=== PATIENT | male | born 1965 | race African-American/Black ===

== ENCOUNTER → 2016-10-03 | Outpatient (CLI) | payer MEDICARE ==
[~2016-10-03] MED LIST: ALLO300T2 PO; AMLO10TA4 PO; COLC0.6C3 PO; CYCL10TA9 PO; FAMO-119 PO; LISI10TA2 PC; NAPR500T PO; OMEP20CA12 PO; OMEP40CA36 PO; PANT40TA2 PO; PANT40TA3 PO; POTA10TA6 PO; PRAV10TA PO; SUCR1TAB36 PO; TRAM50TA2 PO
--- NOTE | 2016-10-03 18:17 | Diagnostic Imaging Report ---
INDICATION: Neck pain, no known injury. AP, odontoid, and lateral views of the cervical spine are obtained. C7 and T1 are not visualized on the lateral view. Odontoid appears intact. The cervical vertebrae from C1 through C6 appear in good alignment and show no fracture or subluxation. There is no significant disc space narrowing. IMPRESSION: Negative cervical spine series at the above-mentioned levels. C7 and T1 are not fully visualized on the lateral view. Dictated by: Dictated on workstation # [id number]
== END ==
LOC: RAD 16:59
PROVIDERS: ATTEND Chiropractor
DX: M79.1 Myalgia (principal); M54.13 Radiculopathy, cervicothoracic region; R29.3 Abnormal posture
CPT/HCPCS: 72040

== ENCOUNTER 2017-01-19 09:24 | Observation (INO) | payer MEDICARE ==
[~2017-01-19] VITALS: Ht 172.7 cm; Wt 134.9 kg
[~2017-01-19 09:24] MED LIST changes: -LISI10TA2 PC; +LISI10TA2 PO
--- NOTE | 2017-01-19 09:39 | ED Psychosocial ---
General Stated Complaint: PSYCH EVAL Source: patient Exam Limitations: no limitations History of Present Illness Time seen by provider: 09:36 Initial Comments Patient reports ER by private conveyance after he spoke with his doctor at [facility] and was told to come to the ER for psych evaluation. He says that for the past 23 days he has been coming more and more depressed and has had voices in his head telling him to kill himself is going to and go to hell. He has never had a suicidal attempt before he has however had suicidal ideation the past. He' s never had inpatient psych stay. He does not have much of a plan to kill himself other than he says he does have guns in the home he could use. He has a history of gout and high blood pressure for which she takes his medicines regularly. He does not have a history of schizophrenia and his voices did not start till about August 2016. He has been followed by his primary care physician but has not started on any antipsychotics. Allergies and Home Medications Allergies Coded Allergies: Penicillins (Verified Allergy, Unknown, 01/31/16) Home Medications Febuxostat 80 Mg Tablet, 80 MG PO, (Reported) Lisinopril 10 Mg Tablet, 1 TAB PC DAILY, #30 (Reported) Pantoprazole Sodium 40 Mg Tablet.dr, 40 MG PO BID, #60 Prescribed by: BRANDEN ESPANA on 02/06/16 1331 Potassium Chloride 10 Meq Tablet.er, 10 MEQ PO DAILY, (Reported) Pravastatin Sodium 10 Mg Tablet, 1 TAB PO DAILY, #30 (Reported) Sucralfate 1 Gm Tablet, 1 GM PO QID, #120 Prescribed by: BRANDEN ESPANA on 02/06/16 1331 Constitutional: No chills, No diaphoresis, No fever EENTM: No ear pain, No eye pain Respiratory: No cough, No short of breath Cardiovascular: No chest pain, No Hx of Intervention, No palpitations Gastrointestinal: No abdominal pain, No constipation, No diarrhea, No nausea Genitourinary: No discharge, No dysuria Musculoskeletal: No back pain, No joint pain (history of gout) Skin: No pruritus, No rash Psychiatric/Neurological: Depressed, Emotional Problems (suicidal ideation), Denies Headache, Denies Numbness, Denies Paresthesia Past Bfbrvno-Tyjqbx-Pxamhq Hx Patient Social History Alcohol Use: Denies Use Recreational Drug Use: No Smoking Status: Former Smoker Type Used: Cigarettes, Smokeless Tobacco (quit 10 years ago) Former Smoker/When Quit: Jan 12, 1986 Recent Foreign Travel: No Contact w/Someone Who Travel: No Immunizations Up To Date Date of Pneumonia Vaccine: Aug 08, 2013 Seasonal Allergies Seasonal Allergies: No Surgeries HX Surgeries: Yes Surgeries: Gallbladder, Tonsillectomy Respiratory Hx Respiratory Disorders: Yes (SLEEP APNEA) Respiratory Disorders: Sleep Apnea Cardiovascular Hx Cardiac Disorders: No Cardiac Disorders: High Cholesterol, Hypertension Neurological Hx Neurological Disorders: No Reproductive System Hx Reproductive Disorders: No Genitourinary Hx Genitourinary Disorders: Yes (RENAL DISEASE) Gastrointestinal Hx Gastrointestinal Disorders: No Gastrointestinal Disorders: Gastroesophageal Reflux Musculoskeletal Hx Musculoskeletal Disorders: No Musculoskeletal Disorders: Arthritis, Rheumatoid Arthritis, Gout Endocrine Hx Endocrine Disorders: Yes Endocrine Disorders: Lupus HEENT HX ENT Disorders: No Cancer Hx Cancer: No Psychosocial Hx Psychiatric Problems: Yes Behavioral Health Disorders: Depression Integumentary HX Skin/Integumentary Disorder: No Blood Transfusions Hx Blood Disorders: No Family Medical History Significant Family History: No Pertinent Family Hx Physical Exam Vital Signs Vital Sign - Last 12Hours 01/19/17 09:36 Temp 98.0 Pulse 90 Resp 16 B/P (MAP) 144/91 Pulse Ox 96 Capillary Refill : General Appearance: WD/WN, mild distress, obese HEENT: PERRL/EOMI, pharynx normal Neck: non-tender, normal inspection Respiratory: lungs clear, normal breath sounds Cardiovascular: normal peripheral pulses, regular rate, rhythm Peripheral Pulses: 4+ Radial Pulses (R), 4+ Radial Pulses (L) Gastrointestinal: normal bowel sounds, non tender, soft Extremities: normal inspection, normal capillary refill Neurologic/Psychiatric: no motor/sensory deficits, alert, oriented x 3, depressed affect (tearful with suicidal ideation without plan. Denies current audiovisual/tactile hallucination and does not endorse lesions) Appearance/Memory: appropriate appearance, appropriate insight, no memory impairment Behavior/Eye Contact: cooperative, normal speech, avoids eye contact Thoughts/Hallucinations: no apparent hallucination, No auditory hallucinations , No delusions, No flight of ideas Skin: normal color, warm/dry Lymphatic: no adenopathy Progress/Results/Core Measures Results/Orders Lab Results Laboratory Tests Test 01/19/17 09:38 01/19/17 10:11 Range/Units White Blood Count 10.5 4.3-11.0 10^3/uL Red Blood Count 5.83 4.35-5.85 10^6/uL Hemoglobin 14.4 13.3-17.7 G/DL Hematocrit 44 40-54 % Mean Corpuscular Volume 76 L 80-99 FL Mean Corpuscular Hemoglobin 25 25-34 PG Mean Corpuscular Hemoglobin Concent 33 32-36 G/DL Red Cell Distribution Width 14.6 H 10.0-14.5 % Platelet Count 360 130-400 10^3/uL Mean Platelet Volume 9.2 7.4-10.4 FL Neutrophils (%) (Auto) 65 42-75 % Lymphocytes (%) (Auto) 28 12-44 % Monocytes (%) (Auto) 6 0-12 % Eosinophils (%) (Auto) 1 0-10 % Basophils (%) (Auto) 0 0-10 % Neutrophils # (Auto) 6.8 1.8-7.8 X 10^3 Lymphocytes # (Auto) 3.0 1.0-4.0 X 10^3 Monocytes # (Auto) 0.7 0.0-1.0 X 10^3 Eosinophils # (Auto) 0.1 0.0-0.3 10^3/uL Basophils # (Auto) 0.0 0.0-0.1 10^3/uL Sodium Level 141 135-145 MMOL/L Potassium Level 3.1 L 3.6-5.0 MMOL/L Chloride Level 101 98-107 MMOL/L Carbon Dioxide Level 27 21-32 MMOL/L Anion Gap 13 5-14 MMOL/L Blood Urea Nitrogen 14 7-18 MG/DL Creatinine 1.48 H 0.60-1.30 MG/DL Estimat Glomerular Filtration Rate > 60 BUN/Creatinine Ratio 9 Glucose Level 114 H 70-105 MG/DL Calcium Level 10.0 8.5-10.1 MG/DL Total Bilirubin 1.4 H 0.1-1.0 MG/DL Aspartate Amino Transf (AST/SGOT) 17 5-34 U/L Alanine Aminotransferase (ALT/SGPT) 28 0-55 U/L Alkaline Phosphatase 90 40-136 U/L Total Protein 7.9 6.4-8.2 GM/DL Albumin 4.4 3.2-4.5 GM/DL Acetaminophen Level < 10 L 10-30 UG/ML Serum Alcohol < 10 <10 MG/DL Urine Color YELLOW Urine Clarity CLEAR Urine pH 6 5-9 Urine Specific [place] 1.015 L 1.016-1.022 Urine Protein 2+ H NEGATIVE Urine Glucose (UA) NEGATIVE NEGATIVE Urine Ketones NEGATIVE NEGATIVE Urine Nitrite NEGATIVE NEGATIVE Urine Bilirubin NEGATIVE NEGATIVE Urine Urobilinogen NORMAL NORMAL MG/DL Urine Leukocyte Esterase NEGATIVE NEGATIVE Urine RBC (Auto) NEGATIVE NEGATIVE Urine RBC NONE /HPF Urine WBC NONE /HPF Urine Squamous Epithelial Cells RARE /HPF Urine Crystals NONE /LPF Urine Bacteria NEGATIVE /HPF Urine Casts NONE /LPF Urine Mucus NEGATIVE /LPF Urine Culture Indicated NO Urine Opiates Screen NEGATIVE NEGATIVE Urine Oxycodone Screen NEGATIVE NEGATIVE Urine Methadone Screen NEGATIVE NEGATIVE Urine Propoxyphene Screen NEGATIVE NEGATIVE Urine Barbiturates Screen NEGATIVE NEGATIVE Ur Tricyclic Antidepressants Screen NEGATIVE NEGATIVE Urine Phencyclidine Screen NEGATIVE NEGATIVE Urine Amphetamines Screen NEGATIVE NEGATIVE Urine Methamphetamines Screen NEGATIVE NEGATIVE Urine Benzodiazepines Screen NEGATIVE NEGATIVE Urine Cocaine Screen NEGATIVE NEGATIVE Urine Cannabinoids Screen NEGATIVE NEGATIVE My Orders Orders - [facility] Acetaminophen (01/19/17 09:39) Alcohol (01/19/17 09:39) Cbc With Automated Diff (01/19/17 09:39) Comprehensive Metabolic Panel (01/19/17 09:39) Drug Screen Stat (Urine) (01/19/17 09:39) Ua Culture If Indicated (01/19/17 09:39) Ekg Tracing (01/19/17 09:54) General/Regular (01/19/17 Breakfast) Potassium Chloride (Tablet) (K Dur Table (01/19/17 10:15) Medications Given in ED Current Medications Medications Dose Ordered Sig/Rosa M Route Start Time Stop Time Status Last Admin Dose Admin Potassium Chloride 20 meq ONCE ONCE PO 01/19/17 10:15 01/19/17 10:17 DC 01/19/17 10:45 20 MEQ Vital Signs/I&O Vital Sign - Last 12Hours 01/19/17 09:36 Temp 98.0 Pulse 90 Resp 16 B/P (MAP) 144/91 Pulse Ox 96 Progress Note #1: Time: 09:44 Progress Note Patient is actively suicidal without much of a plan. He will need inpatient stay with psychiatry. We have contacted [facility] and they have to discharge today one of which is scheduled at 1999 they will call us back as soon as they have discharged one of them. [facility] has no inpatient psych beds available at this time. [facility] is at capacity. [facility] was called and they will have someone from their assessment center call us back. Progress Note #2: Time: 10:16 Progress Note Patient's potassium is mildly low so we will replace it by mouth. He has a history of chronic hypokalemia and is on a potassium supplement at home. He is also eating breakfast. He has a baseline of 1-1.5 creatinine chronic kidney disease based on labs in the past 2 years. His bilirubin has been high in the past. 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 Patient has a and general child home with his does not drive and so we will be in position and friends to come pick him up after his inpatient states that he has requested not to go to [facility] or [facility]. He would prefer to be somewhere much closer such as [place] or [place]. ECG Initial ECG Impression Date: Jan 19, 2017 Initial ECG Impression Time: 09:50 Initial ECG Rate: 78 Initial ECG Rhythm: Normal Sinus Initial ECG Intervals: Normal Initial ECG Impression: Normal, Nonspecific Changes Initial ECG Comparisson: No Previous ECG Available Comment No ST wave elevation or depression Departure Communication Time/Spoke to Admitting Phy: 11:[address] Frazier; discussed the patient's case and his audio hallucinations as well as suicidal ideation. He has not required any antipsychotics at this time. Discussed at [facility] said that they would have to discharge today and the first on the notable be at 8:00 the second one is unknown time. The plan from [facility] inpatient psych was to call us as soon as they had space available. He said if it is okay with this and also provides her and they have staff that he would be okay with bring the patient on observation so that they can hold onto him until they get him discharged hopefully tonight. Impression Impression: Primary Impression: Hallucinations Additional Impression: Suicidal ideation Disposition: ADMITTED INPATIENT (obs) Condition: Stable Decision to Admit Reason: Admit from ER (General) Decision to Admit/Date: Jan 19, 2017 Time/Decision to Admit Time: 11:11 Departure-Patient Inst. Referrals: EDGARDO BATES MD (PCP/Family) Primary Care Physician Copy Copies To 1: SYD MARTIN TITUS J Jan 19, 2017 09:39
[2017-01-19] MEDS ORDERED: FEBU80TA PO (09:47)
[2017-01-19 09:51] LABS: BASOPHILS % (AUTO) 0 % (0-10); EOSINOPHILS # (AUTO) 0.1 10^3/uL (0.0-0.3); EOSINOPHILS % (AUTO) 1 % (0-10); LYMPHOCYTES % (AUTO) 28 % (12-44); MEAN CORPUSCULAR HEMOGLOBIN 25 PG (25-34); MEAN CORPUSCULAR HGB CONC 33 G/DL (32-36); MEAN CORPUSCULAR VOLUME 76 FL (80-99); MEAN PLATELET VOLUME 9.2 FL (7.4-10.4); MONOCYTES # (AUTO) 0.7 X 10^3 (0.0-1.0); MONOCYTES % (AUTO) 6 % (0-12); NEUTROPHILS # (AUTO) 6.8 X 10^3 (1.8-7.8); NEUTROPHILS % (AUTO) 65 % (42-75); PLATELET COUNT 360 10^3/uL (130-400); RED BLOOD COUNT 5.83 10^6/uL (4.35-5.85); RED CELL DISTRIBUTION WIDTH 14.6 % (10.0-14.5); WHITE BLOOD COUNT 10.5 10^3/uL (4.3-11.0)
[2017-01-19 10:06] LABS: ALANINE AMINOTRANSFERASE 28 U/L (0-55); ALBUMIN 4.4 GM/DL (3.2-4.5); ALCOHOL < 10 MG/DL (<10); ANION GAP 13 MMOL/L (5-14); ASPARTATE AMINO TRANSFERASE 17 U/L (5-34); BILIRUBIN,TOTAL 1.4 MG/DL (0.1-1.0); BLOOD UREA NITROGEN 14 MG/DL (7-18); BUN/CREATININE RATIO 9; CARBON DIOXIDE 27 MMOL/L (21-32); CHLORIDE 101 MMOL/L (98-107); CREATININE SERUM 1.48 MG/DL (0.60-1.30); GFR ESTIMATED > 60; GLUCOSE 114 MG/DL (70-105); POTASSIUM 3.1 MMOL/L (3.6-5.0); SODIUM 141 MMOL/L (135-145); TOTAL PROTEIN 7.9 GM/DL (6.4-8.2)
[2017-01-19 10:11] LABS: ACETAMINOPHEN < 10 UG/ML (10-30)
[2017-01-19] MEDS ORDERED: KCL 20 MEQ TAB (K-DUR) PO ONE (10:15)
[2017-01-19 10:40] LABS: BILIRUBIN,URINE NEGATIVE (NEGATIVE); KETONES,URINE NEGATIVE (NEGATIVE); LEUKOCYTE ESTERASE ,URINE NEGATIVE (NEGATIVE); NITRITE,URINE NEGATIVE (NEGATIVE); PH,URINE 6 (5-9); PROTEIN,URINE 2+ (NEGATIVE); UROBILINOGEN,URINE NORMAL (NORMAL)
[2017-01-19 10:41] LABS: SQUAMOUS EPITHELIAL CELL,UR RARE /HPF
[2017-01-19 12:59] VITALS: BP 119/75
[2017-01-19] MEDS ORDERED: ACETAMINOPHEN 500 MG TAB (TYLENOL) PO PRN (14:00)
[2017-01-19] MEDS ORDERED: ONDANSETRON 4 MG/2 ML (SDV) Z0FRAN IV PRN (14:00)
[2017-01-19 16:00] VITALS: BP 121/77
--- NOTE | 2017-01-19 16:33 | History & Physicial (CHS) ---
HPI History of Present Illness: 51-year-old male presents to [facility] emergency department after apparently being informed to come to the emergency department for evaluation. He apparently was hearing voices and these voices were telling him to go ahead and kill himself. Patient has no previous suicide attempts although he admitted to emergency room physician he had suicidal ideation in the past. Patient does not have an active plan for harming himself. He has not taken any antipsychotic medications in the past and his only other medications have been for gout as well as hypertension. Patient does see Dr. Pearson at [facility]. Source: patient Exam Limitations: clinical condition Date seen by provider: Jan 19, 2017 Time Seen by Provider: 16:45 Attending Physician Rodri Dave MD PCP Ryley Jones MD Consult Date of Admission Jan 19, 2017 at 11:29 Home Medications Home Medications Reviewed patient Home Medication Reconciliation Form Allergies Coded Allergies: Penicillins (Verified Allergy, Unknown, 01/31/16) DYK-Xwspsy-Momjav Hx Patient Social History Marrital Status: Alcohol Use: Denies Use Recreational Drug Use: No Smoking Status: Former Smoker Former smoker/When Quit: Jan 12, 1986 Type Used: Cigarettes, Smokeless Tobacco (quit 10 years ago) Recent Foreign Travel: No Contact w/other who traveled: No Recent Hopitalizations: No Recent Infectious Disease Expo: No Physical Abuse Screen: No Sexual Abuse: No Immunizations Up To Date Date of Pneumonia Vaccine: Aug 08, 2013 Family Medical History Significant Family History: No Pertinent Family Hx Family History: Diabetes mellitus 19 MOTHER PATERNAL GRANDFATHER Neoplasm 19 FATHER (THROAT CANCER-SMOKER) Review of Systems ([facility]) Constitutional: see HPI Reviewed Test Results Reviewed Test Results Lab Laboratory Tests Test 01/19/17 09:38 01/19/17 10:11 Range/Units White Blood Count 10.5 4.3-11.0 10^3/uL Red Blood Count 5.83 4.35-5.85 10^6/uL Hemoglobin 14.4 13.3-17.7 G/DL Hematocrit 44 40-54 % Mean Corpuscular Volume 76 L 80-99 FL Mean Corpuscular Hemoglobin 25 25-34 PG Mean Corpuscular Hemoglobin Concent 33 32-36 G/DL Red Cell Distribution Width 14.6 H 10.0-14.5 % Platelet Count 360 130-400 10^3/uL Mean Platelet Volume 9.2 7.4-10.4 FL Neutrophils (%) (Auto) 65 42-75 % Lymphocytes (%) (Auto) 28 12-44 % Monocytes (%) (Auto) 6 0-12 % Eosinophils (%) (Auto) 1 0-10 % Basophils (%) (Auto) 0 0-10 % Neutrophils # (Auto) 6.8 1.8-7.8 X 10^3 Lymphocytes # (Auto) 3.0 1.0-4.0 X 10^3 Monocytes # (Auto) 0.7 0.0-1.0 X 10^3 Eosinophils # (Auto) 0.1 0.0-0.3 10^3/uL Basophils # (Auto) 0.0 0.0-0.1 10^3/uL Sodium Level 141 135-145 MMOL/L Potassium Level 3.1 L 3.6-5.0 MMOL/L Chloride Level 101 98-107 MMOL/L Carbon Dioxide Level 27 21-32 MMOL/L Anion Gap 13 5-14 MMOL/L Blood Urea Nitrogen 14 7-18 MG/DL Creatinine 1.48 H 0.60-1.30 MG/DL Estimat Glomerular Filtration Rate > 60 BUN/Creatinine Ratio 9 Glucose Level 114 H 70-105 MG/DL Calcium Level 10.0 8.5-10.1 MG/DL Total Bilirubin 1.4 H 0.1-1.0 MG/DL Aspartate Amino Transf (AST/SGOT) 17 5-34 U/L Alanine Aminotransferase (ALT/SGPT) 28 0-55 U/L Alkaline Phosphatase 90 40-136 U/L Total Protein 7.9 6.4-8.2 GM/DL Albumin 4.4 3.2-4.5 GM/DL Acetaminophen Level < 10 L 10-30 UG/ML Serum Alcohol < 10 <10 MG/DL Urine Color YELLOW Urine Clarity CLEAR Urine pH 6 5-9 Urine Specific [place] 1.015 L 1.016-1.022 Urine Protein 2+ H NEGATIVE Urine Glucose (UA) NEGATIVE NEGATIVE Urine Ketones NEGATIVE NEGATIVE Urine Nitrite NEGATIVE NEGATIVE Urine Bilirubin NEGATIVE NEGATIVE Urine Urobilinogen NORMAL NORMAL MG/DL Urine Leukocyte Esterase NEGATIVE NEGATIVE Urine RBC (Auto) NEGATIVE NEGATIVE Urine RBC NONE /HPF Urine WBC NONE /HPF Urine Squamous Epithelial Cells RARE /HPF Urine Crystals NONE /LPF Urine Bacteria NEGATIVE /HPF Urine Casts NONE /LPF Urine Mucus NEGATIVE /LPF Urine Culture Indicated NO Urine Opiates Screen NEGATIVE NEGATIVE Urine Oxycodone Screen NEGATIVE NEGATIVE Urine Methadone Screen NEGATIVE NEGATIVE Urine Propoxyphene Screen NEGATIVE NEGATIVE Urine Barbiturates Screen NEGATIVE NEGATIVE Ur Tricyclic Antidepressants Screen NEGATIVE NEGATIVE Urine Phencyclidine Screen NEGATIVE NEGATIVE Urine Amphetamines Screen NEGATIVE NEGATIVE Urine Methamphetamines Screen NEGATIVE NEGATIVE Urine Benzodiazepines Screen NEGATIVE NEGATIVE Urine Cocaine Screen NEGATIVE NEGATIVE Urine Cannabinoids Screen NEGATIVE NEGATIVE Physical Exam-([facility]) Physical Exam Vital Signs VS - Last 72 Hours, by Label 01/19/17 01/19/17 01/19/17 01/19/17 09:36 11:45 12:00 12:59 Temp 98.0 96.9 Pulse 90 78 80 Resp 16 18 18 B/P (MAP) 144/91 119/75 Pulse Ox 96 98 98 98 O2 Delivery Room Air Room Air 01/19/17 01/19/17 01/19/17 01/20/17 16:00 20:17 23:50 03:55 Temp 97.7 99.2 97.9 98.3 Pulse 75 75 83 82 Resp 20 18 20 18 B/P (MAP) 121/77 117/71 119/83 122/72 Pulse Ox 98 94 97 97 O2 Delivery Room Air Room Air Room Air Room Air Capillary Refill : Less Than 3 Seconds General Appearance: no apparent distress Eyes: Bilateral Eye Normal Inspection Neck: non-tender Respiratory: lungs clear Cardiovascular: regular rate, rhythm Gastrointestinal: soft Rectal: deferred Back: normal inspection Extremities: no pedal edema Neurologic/Psychiatric: oriented x 3, depressed affect Skin: normal color Assessment/Plan Assessment/Plan Admission Dx 1. Suicidal ideation 2. Hallucinations 3. History of hypertension 4. History of gout Plan 1. Suicidal ideation -Emergency room physician has made multiple phone calls in arrangement for inpatient care. -At this time patient is on hold at [facility] until room available at [facility] psychiatric. 2. Hallucinations -I suspect that patient will be placed on medication after their evaluation. -Medication to be held for now here at [facility]. 3. History of hypertension -He will be restarted on his medications as deemed appropriate. 4. History of gout Diagnosis/Problems: Clinical Quality Measures DVT/VTE Risk/Contraindication: Risk Factor Score Per Nursin RFS Level Per Nursing on Admit: 2=Moderate RODRI DAVE MD Jan 19, 2017 16:32
[2017-01-19 20:17] VITALS: BP 117/71
[2017-01-19 23:50] VITALS: BP 119/83
[2017-01-20 03:55] VITALS: BP 122/72
[2017-01-20 08:00] VITALS: BP 147/92
[2017-01-20] MEDS ORDERED: PANT40TA3 PO (09:48)
[2017-01-20] MEDS ORDERED: SUCR1TAB PO (09:48)
[2017-01-20] MEDS ORDERED: ASCO-262 PO (09:48)
[2017-01-20] MEDS ORDERED: MAG30ORA2 PO (09:48)
[2017-01-20] MEDS ORDERED: MULT1TAB69 PO (09:48)
[2017-01-20] MEDS ORDERED: POTA10TA10 PO (09:48)
[2017-01-20] MEDS ORDERED: VITA1TAB17 PO (09:48)
[2017-01-20 12:01] VITALS: BP 136/89
--- NOTE | 2017-01-20 14:16 | Progress Note (SOAP) ---
Subjective Subjective/Events-last exam Afebrile, no acute events. He states he is feeling the same as when he came in. He states he had depression many years ago and took medicine which made it worse. In the last several months to a year he has had increasing worry about physical problems- any time he notes any symptom, his states he focuses on it to the point of near panic and having to go to the ER or doctor. In the last month, it has become nearly continuous to the point where he may only be "normal " for about 2 hours at a time. In the last few days he has had onset of voices in his head telling him he is going to . He denies fever, illness, headache. He does admit some neck pain and nausea. Review of Systems Date Seen by Provider: Jan 20, 2017 Time Seen by Provider: 09:45 Objective Exam Last Set of Vital Signs Vital Signs Date Time Temp Pulse Resp B/P (MAP) Pulse Ox O2 Delivery O2 Flow Rate FiO2 01/20/17 12:01 98.5 91 24 136/89 97 Room Air Capillary Refill : Less Than 3 Seconds I&O Bad tableGeneral: Alert, No Acute Distress Lungs: Clear to Auscultation, Normal Air Movement Heart: Regular Rate, No Murmurs Abdomen: Normal Bowel Sounds, Soft Neuro: Normal Speech Psych/Mental Status: Other (flat affect) Results/Procedures Lab Laboratory Tests Test 01/19/17 09:38 01/19/17 10:11 Range/Units White Blood Count 10.5 4.3-11.0 10^3/uL Red Blood Count 5.83 4.35-5.85 10^6/uL Hemoglobin 14.4 13.3-17.7 G/DL Hematocrit 44 40-54 % Mean Corpuscular Volume 76 L 80-99 FL Mean Corpuscular Hemoglobin 25 25-34 PG Mean Corpuscular Hemoglobin Concent 33 32-36 G/DL Red Cell Distribution Width 14.6 H 10.0-14.5 % Platelet Count 360 130-400 10^3/uL Mean Platelet Volume 9.2 7.4-10.4 FL Neutrophils (%) (Auto) 65 42-75 % Lymphocytes (%) (Auto) 28 12-44 % Monocytes (%) (Auto) 6 0-12 % Eosinophils (%) (Auto) 1 0-10 % Basophils (%) (Auto) 0 0-10 % Neutrophils # (Auto) 6.8 1.8-7.8 X 10^3 Lymphocytes # (Auto) 3.0 1.0-4.0 X 10^3 Monocytes # (Auto) 0.7 0.0-1.0 X 10^3 Eosinophils # (Auto) 0.1 0.0-0.3 10^3/uL Basophils # (Auto) 0.0 0.0-0.1 10^3/uL Sodium Level 141 135-145 MMOL/L Potassium Level 3.1 L 3.6-5.0 MMOL/L Chloride Level 101 98-107 MMOL/L Carbon Dioxide Level 27 21-32 MMOL/L Anion Gap 13 5-14 MMOL/L Blood Urea Nitrogen 14 7-18 MG/DL Creatinine 1.48 H 0.60-1.30 MG/DL Estimat Glomerular Filtration Rate > 60 BUN/Creatinine Ratio 9 Glucose Level 114 H 70-105 MG/DL Calcium Level 10.0 8.5-10.1 MG/DL Total Bilirubin 1.4 H 0.1-1.0 MG/DL Aspartate Amino Transf (AST/SGOT) 17 5-34 U/L Alanine Aminotransferase (ALT/SGPT) 28 0-55 U/L Alkaline Phosphatase 90 40-136 U/L Total Protein 7.9 6.4-8.2 GM/DL Albumin 4.4 3.2-4.5 GM/DL Acetaminophen Level < 10 L 10-30 UG/ML Serum Alcohol < 10 <10 MG/DL Urine Color YELLOW Urine Clarity CLEAR Urine pH 6 5-9 Urine Specific [place] 1.015 L 1.016-1.022 Urine Protein 2+ H NEGATIVE Urine Glucose (UA) NEGATIVE NEGATIVE Urine Ketones NEGATIVE NEGATIVE Urine Nitrite NEGATIVE NEGATIVE Urine Bilirubin NEGATIVE NEGATIVE Urine Urobilinogen NORMAL NORMAL MG/DL Urine Leukocyte Esterase NEGATIVE NEGATIVE Urine RBC (Auto) NEGATIVE NEGATIVE Urine RBC NONE /HPF Urine WBC NONE /HPF Urine Squamous Epithelial Cells RARE /HPF Urine Crystals NONE /LPF Urine Bacteria NEGATIVE /HPF Urine Casts NONE /LPF Urine Mucus NEGATIVE /LPF Urine Culture Indicated NO Urine Opiates Screen NEGATIVE NEGATIVE Urine Oxycodone Screen NEGATIVE NEGATIVE Urine Methadone Screen NEGATIVE NEGATIVE Urine Propoxyphene Screen NEGATIVE NEGATIVE Urine Barbiturates Screen NEGATIVE NEGATIVE Ur Tricyclic Antidepressants Screen NEGATIVE NEGATIVE Urine Phencyclidine Screen NEGATIVE NEGATIVE Urine Amphetamines Screen NEGATIVE NEGATIVE Urine Methamphetamines Screen NEGATIVE NEGATIVE Urine Benzodiazepines Screen NEGATIVE NEGATIVE Urine Cocaine Screen NEGATIVE NEGATIVE Urine Cannabinoids Screen NEGATIVE NEGATIVE Assessment/Plan Assessment/Plan Admission Dx 1. Suicidal ideation 2. Hallucinations 3. History of hypertension 4. GERD 5. HLD Plan 1. Suicidal ideation -Emergency room physician has made multiple phone calls in arrangement for inpatient care. -At this time patient is on hold at [facility] until room available at inpatient psychiatric. 2. Hallucinations -If unable to be transferred to inpatient Psych, will consider starting medication, appears he may have depression with psychotic features as well as anxiety/panic disorder 3. History of hypertension- resume home lisinopril 4. GERD- resume home pantoprazole 5. HLD- resume home statin DVT ppx- SCDs Diagnosis/Problems: Clinical Quality Measures DVT/VTE Risk/Contraindication: Risk Factor Score Per Nursin RFS Level Per Nursing on Admit: 2=Moderate EDE OGDEN MD Jan 20, 2017 2:16 pm
[2017-01-20] MEDS ORDERED: CATHETER FLUSH 10 ML SYR IV PRN (14:30)
[2017-01-20 15:25] LABS: ALANINE AMINOTRANSFERASE 27 U/L (0-55); ALBUMIN 3.9 GM/DL (3.2-4.5); ANION GAP 13 MMOL/L (5-14); ASPARTATE AMINO TRANSFERASE 17 U/L (5-34); BILIRUBIN,TOTAL 0.9 MG/DL (0.1-1.0); BLOOD UREA NITROGEN 14 MG/DL (7-18); BUN/CREATININE RATIO 10; CALCIUM 9.7 MG/DL (8.5-10.1); CARBON DIOXIDE 25 MMOL/L (21-32); CHLORIDE 102 MMOL/L (98-107); GFR ESTIMATED > 60; GLUCOSE 126 MG/DL (70-105); SODIUM 140 MMOL/L (135-145); TOTAL PROTEIN 7.2 GM/DL (6.4-8.2)
[2017-01-20 15:31] VITALS: BP 126/82
[2017-01-20] MEDS ORDERED: KCL 20 MEQ TAB (K-DUR) PO NR (16:00)
--- NOTE | 2017-01-20 16:06 | Discharge Summary ---
Diagnosis/Chief Complaint Date of Admission Jan 19, 2017 at 12:00 Date of Discharge Jan 20, 2017 Admission Diagnosis Admission Diagnosis 1. Suicidal ideation 2. Hallucinations 3. History of hypertension 4. GERD 5. HLD Discharge Diagnosis 1. Suicidal ideation -Transferred to [facility] 2. Hallucinations -If unable to be transferred to inpatient Psych, will consider starting medication, appears he may have depression with psychotic features as well as anxiety/panic disorder -Transferred to [facility] 3. History of hypertension- resume home lisinopril 4. GERD- resume home pantoprazole 5. HLD- resume home statin 6. CKD- creatinine 1.4, appears to be baseline, but he did not report history of CKD, likely needs further work-up outpatient Chief Complaint/HPI Chief Complaint/HPI 51-year-old male presents to [facility] emergency department after apparently being informed to come to the emergency department for evaluation. He apparently was hearing voices and these voices were telling him to go ahead and kill himself. Patient has no previous suicide attempts although he admitted to emergency room physician he had suicidal ideation in the past. Patient does not have an active plan for harming himself. He has not taken any antipsychotic medications in the past and his only other medications have been for gout as well as hypertension. Patient does see Dr. Pearson at [facility]. Discharge Summary-Simple/Stand Consultations Discharge Physical Examination Allergies: Coded Allergies: Penicillins (Verified Allergy, Unknown, 01/31/16) Vitals & I&Os Vital Sign - Last 12Hours Date Time Temp Pulse Resp B/P (MAP) Pulse Ox O2 Delivery O2 Flow Rate FiO2 01/20/17 15:31 98.7 93 24 126/82 95 Room Air Intake and Output 01/20/17 00:00 Intake Total 620 ml Output Total 525 ml Balance 95 ml Hospital Course See final discharge diagnosis. Discharge Instructions to patient/family Please see electonic discharge instructions given to patient. Discharge Medications Reviewed and agree with Discharge Medication list on patient's Discharge Instruction sheet Clinical Quality Measures DVT/VTE Risk/Contraindication: Risk Factor Score Per Nursin RFS Level Per Nursing on Admit: 2=Moderate EDE OGDEN MD Jan 20, 2017 16:06
[2017-01-20 16:59] VITALS: BP 126/82
[2017-01-20] MEDS ORDERED: CATHETER FLUSH 10 ML SYR IV SCH (22:00)
[2017-01-21] MEDS ORDERED: PANTOPRAZOLE 40 MG (PROTONIX) TAB PO SCH (07:00)
[2017-01-21] MEDS ORDERED: NON-FORMULARY MEDICATION 1 EA EA (Pravastatin Sodium 10 MG) PO SCH (09:00)
[2017-01-21] MEDS ORDERED: lisINopril 10 MG (PRINIVIL) TAB PO SCH (09:00)
[2017-01-21] MEDS ORDERED: SIMvastatin 10 MG (ZOCOR) TAB PO SCH (21:00)
== END 2017-01-20 16:05 ==
LOC: EDUNIT# 09:24 → ER 09:25 → 4TH 11:29 → UNDOADMOB 11:29 → 4TH 12:00
PROVIDERS: ADMIT Family Medicine; ATTEND Family Medicine
DX: R45.851 Suicidal ideations (principal); R44.0 Auditory hallucinations; I12.9 Hypertensive chronic kidney disease with stage 1 through stage 4 chronic kidney disease, or unspecified chronic kidney disease; N18.9 Chronic kidney disease, unspecified; K21.9 Gastro-esophageal reflux disease without esophagitis; M10.00 Idiopathic gout, unspecified site; G47.30 Sleep apnea, unspecified; Z79.899 Other long term (current) drug therapy; Z87.891 Personal history of nicotine dependence
CPT/HCPCS: 36415; 80053; 80306; 80320; 80329; 81000; 85025; 93005; G0378

== ENCOUNTER 2017-11-21 17:31 | Emergency (ER) | payer MEDICARE ==
[~2017-11-21] VITALS: Ht 177.8 cm; Wt 145.1 kg
[~2017-11-21 17:31] MED LIST changes: +ASCO-262 PO; +FEBU80TA PO; +MAG30ORA2 PO; +MULT1TAB69 PO; +NAPR-1071 PO; -NAPR500T PO; +POTA10TA10 PO; +SUCR1TAB PO; +VITA1TAB17 PO
--- OUTSIDE RECORDS SUMMARY | 2017-11-21 17:37 | XMS REPORT ---
Author Author ADINA ZAMBRANO Organization [facility] Address [address] [place] [address] Phone Unavailable Care Team Providers Care Sinter Feeder Name Role Phone ADINA ZAMBRANO Unavailable Unavailable PROBLEMS Type Condition ICD9-CM Code [id number] Code Onset Dates Condition Status SNOMED Code Problem Essential hypertension I10 Active 65579852 Problem Dysthymic disorder F34.1 Active 60802130 Problem Mixed hyperlipidemia E78.2 Active 027978808 Problem Gastroesophageal reflux disease without esophagitis K21.9 Active 320339661 Problem Acute gout of right ankle, 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 Active 046932553 Problem Acute left-sided low back pain with left-sided sciatica M54.42 Active 790550135 Problem Arthritis M19.90 Active 6655015 Problem Generalized anxiety disorder F41.1 Active 79650127 Problem Chronic kidney disease, unspecified stage N18.9 Active 332524269 Problem Gingivitis K05.10 Active 02916972 ALLERGIES Unknown Allergies SOCIAL HISTORY No smoking Hx information available PLAN OF CARE VITAL SIGNS MEDICATIONS Unknown Medications RESULTS No Results PROCEDURES No Known procedures IMMUNIZATIONS No Known Immunizations
--- OUTSIDE RECORDS SUMMARY | 2017-11-21 17:38 | XMS REPORT ---
Author Author ADINA ZAMBRANO Organization [employer] Address Unknown Phone Unavailable Care Team Providers Care Management Expert Name Role Phone ADINA ZAMBRANO CP Unavailable Allergies, Adverse Reactions, Alerts Substance Reaction Event Type Penicillin V Potassium Info Not Available Drug Allergy Problems Problem Type Condition Code Onset Dates Condition Status Assessment Dental examination Z01.20 Active Problem Arthritis M19.90 Active Problem Generalized anxiety disorder F41.1 Active Problem Gingivitis K05.10 Active Problem Essential hypertension I10 Active Problem Gastroesophageal reflux disease without esophagitis K21.9 Active Problem Dysthymic disorder F34.1 Active Problem Mixed hyperlipidemia E78.2 Active Medications No Known Medications Procedures Procedure Coding System Code Date INTRAORL-PERIAPICAL 1 FILM 19978 CPT-4 D0220 Apr 04, 2016 INTRAORL-PERIAPICAL EA ADD FILM CPT-4 D0230 Apr 04, 2016 COMP ORAL EVALUATION - NEW/EST PT CPT-4 D0150 Apr 04, 2016 Billing Notes on claim CPT-4 EC109 Apr 04, 2016 BITEWINGS - TWO FILMS CPT-4 D0272 Apr 04, 2016 Results No Known Results Summary Purpose [employer] Submission
--- OUTSIDE RECORDS SUMMARY | 2017-11-21 17:38 | XMS REPORT ---
Author Author EDGARDO BATES [facility] Address [address] [place] [address] Care Team Providers Care District Attorney Name Role Phone EDGARDO BATES Unavailable PROBLEMS Type Condition ICD9-CM Code ING35-XH Code Onset Dates Condition Status SNOMED Code Problem Gastroesophageal reflux disease without esophagitis K21.9 Active 153717243 Problem Mixed hyperlipidemia E78.2 Active 987850849 Problem Essential hypertension I10 Active 54617690 Problem Acute left-sided low back pain with left-sided sciatica M54.42 Active 649552211 Problem Chronic kidney disease, unspecified stage N18.9 Active 985092288 Problem Generalized anxiety disorder F41.1 Active 61427885 Problem Dysthymic disorder F34.1 Active 83756039 Problem Gingivitis K05.10 Active 55550611 Problem Arthritis M19.90 Active 0800071 ALLERGIES Substance Reaction Event Type Date Status Penicillin V Potassium Unknown Drug Allergy May, Active SOCIAL HISTORY No smoking Hx information available PLAN OF CARE Activity Details Follow Up 2 Months Reason: VITAL SIGNS Height 70 in 2016-06-07 Weight 308 lbs 2016-06-07 Temperature 98.2 degrees Fahrenheit 2016-06-07 Heart Rate 96 bpm 2016-06-07 Respiratory Rate 22 2016-06-07 BMI 44.19 kg/m2 2016-06-07 Blood pressure systolic 112 mmHg 2016-06-07 Blood pressure diastolic 80 mmHg 2016-06-07 MEDICATIONS Medication Instructions Dosage Frequency Start Date End Date Duration Status Lisinopril 10 MG Orally Once a day 1 tablet 24h Active Magnesium 250 MG Orally Once a day 1 tablet with a meal 24h Active Colchicine 0.6 MG Orally Once a day 1 tablet 24h Active Mens Multi Vitamin & Mineral Active Nystatin 360932 UNIT/ML Mouth/Throat Four times a day 5 ml 6h May, Jun, 30 day(s) Active Vitamin C 500 MG Active Vitamin B-6 100 MG Orally Once a day 1 tablet 24h Active Vitamin D3 1000 UNIT Orally Once a day 1 capsule 24h Active Protonix 40 Orally Once a day 1 tablet 24h 30 Active Pravastatin Sodium 10 MG Orally Once a day 1 tablet 24h Active RESULTS Name Result Date Reference Range BMP 2016-06-07 Glucose, Serum 114 65-99 BUN 24 6-24 Creatinine, Serum 1.63 0.76-1.27 eGFR If NonAfricn Am 49 >59 eGFR If Africn Am 57 >59 BUN/Creatinine Ratio 15 9-20 Sodium, Serum 140 134-144 Potassium, Serum 3.4 3.5-5.2 Chloride, Serum 96 96-106 Carbon Dioxide, Total 25 18-29 Calcium, Serum 10.0 8.7-10.2 PROCEDURES Procedure Date Ordered Related Diagnosis Body [facility] Jun 07, 2016 VENIPUNCT, ROUTINE* Jun 07, 2016 Office Visit, Est Pt., Level 4 Jun 07, 2016 [facility] VISIT ESTABLISHED PATIENT Jun 07, 2016 IMMUNIZATIONS No Known Immunizations
--- OUTSIDE RECORDS SUMMARY | 2017-11-21 17:38 | XMS REPORT ---
Author Author EDGARDO BATES [facility] Address [address] [place] [address] Care Team Providers Care Manager Brand Name Role Phone EDGARDO BATES Unavailable PROBLEMS Type Condition ICD9-CM Code TFO05-LZ Code Onset Dates Condition Status SNOMED Code Problem Dysthymic disorder F34.1 Active 42108233 Problem Arthritis M19.90 Active 4931802 Problem Generalized anxiety disorder F41.1 Active 73885256 Problem Gastroesophageal reflux disease without esophagitis K21.9 Active 862139199 Problem Essential hypertension I10 Active 50148748 Problem Mixed hyperlipidemia E78.2 Active 436501011 Problem Vertigo R42 Active 164539985 Problem Type 2 diabetes mellitus without complication, without long-term current use of insulin E11.9 Active 217321406 Problem Acute left-sided low back pain with left-sided sciatica M54.42 Active 271066129 Problem Gingivitis K05.10 Active 72599778 Problem Exophthalmia H05.20 Active 82592395 Problem Acute gout of right ankle, 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 Active 883825351 ALLERGIES No Information ENCOUNTERS Encounter Location Date Diagnosis [facility] [address], [place] [address] Dec, [facility] [id number] [place] [phone] Sep, Dental examination Z01.20 [facility] [address], [place] [address] Sep, [facility] [id number] [place] [address] Aug, Dental examination Z01.20 [facility] [id number] [place] [address] Aug, [facility] [id number] [place] [address] Aug, [facility] [address] [address] 14 Aug, 2017 Aphthous stomatitis K12.0 and BMI 45.0-49.9, adult Z68.42 [place] [address] [address] 05 Aug, 2017 [place] [address] [address] 05 Aug, 2017 Vertigo R42 ; Impacted cerumen of both ears H61.23 ; Abnormal RBC indices R71.8 ; Exophthalmia H05.20 ; Elevated glucose R73.09 ; Type 2 diabetes mellitus without complication, without long-term current use of insulin E11.9 and BMI 45.0-49.9, adult Z68.42 [place] [address] [address] 19 Jul, 2017 Dizziness R42 and BMI 45.0-49.9, adult Z68.42 [facility] [address] [address] Jun, Vertigo R42 and BMI 45.0-49.9, adult Z68.42 [facility] [address] [id number] May, Dental caries K02.9 [facility] [address] [id number] May, Encounter for dental exam and cleaning w/o abnormal findings Z01.20 [place] [address] [address] 07 Apr, 2017 Acute non-recurrent maxillary sinusitis J01.00 [place] [address] [address] 09 Mar, 2017 [place] [address] [address] Feb, Acute gout of right ankle, 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 [facility] [id number] [place] [address] Feb, [facility] [id number] [place] [id number] Jan, Dental examination Z01.20 [facility] [id number] [place] [phone] Jan, Encounter for dental examination and cleaning without abnormal findings Z01.20 [facility] [id number] [place] [id number] Jan, Dental examination Z01.20 [facility] [id number] [place] [address] Jan, Acute non-recurrent frontal sinusitis J01.10 ; Essential hypertension I10 ; Mixed hyperlipidemia E78.2 ; Sore throat J02.9 and Gastroesophageal reflux disease without esophagitis K21.9 [facility] [id number] [place] [id number] Dec, [facility] [id number] [place] [address] Dec, Other secondary acute gout of multiple sites M10.49 and Acute upper respiratory infection, unspecified J06.9 [facility] [id number] [place] [address] Nov, Sore throat J02.9 ; Acute nasopharyngitis (common cold) J00 and Acute left-sided low back pain with left-sided sciatica M54.42 [facility] [address] [place] [phone] October, Encounter for dental examination and cleaning without abnormal findings Z01.20 [facility] [address] [place] [address] October, Acute upper respiratory infection, unspecified J06.9 and Sore throat J02.9 [facility] [address] [phone] Sep, Encounter for dental examination and cleaning without abnormal findings Z01.20 [facility] [id number] [place] [address] 16[address] Sep, Gastroesophageal reflux disease without esophagitis K21.9 [facility] [id number] [place] [address] Aug, Sore throat J02.9 and Acute idiopathic gout of right wrist M10.031 [facility] [id number] [place] [id number] Jul, Encounter for dental examination and cleaning without abnormal findings Z01.20 [facility] [id number] [place] [address] [phone] Jun, [facility] [id number] [place] [address] Jun, Lower abdominal pain R10.30 [facility] [id number] [place] [phone] Jun, Encounter for dental examination and cleaning without abnormal findings Z01.20 [facility] [id number] [place] [address] May, Chronic kidney disease, unspecified stage N18.9 and Mouth ulcer K12.1 [facility] [id number] [place] [address] May, Chronic kidney disease, unspecified stage N18.9 [facility] [id number] [place] [address] May, Encounter for dental examination and cleaning without abnormal findings Z01.20 [facility] [id number] [place] [address] May, Encounter for dental examination and cleaning without abnormal findings Z01.20 [facility] [id number] [place] [address] May, Hypokalemia E87.6 ; Essential hypertension I10 ; Gastroesophageal reflux disease without esophagitis K21.9 and Right-sided thoracic back pain, unspecified chronicity M54.6 [facility] [place] [address] [address] May, Oral candidiasis B37.[address] [address] May, [place] [address] [address] May, Cracked tooth K03.81 and Retained dental root K08.[address] [address] May, Dental examination Z01.20 [facility] [address] [address] 28 Apr, 2016 Acute right flank pain R10.9 and Acute left lower quadrant pain R10.32 [place] [address] [address] 08 Apr, 2016 Bronchitis J40 [place] [address] [address] Mar, Dental examination Z01.[address] [address] Mar, Dysthymic disorder F34.1 [facility] [address] [address] 05 Mar, 2016 Gingivitis K05.10 and Torticollis M43.[address] [address] 08 Feb, 2016 Dysthymic disorder F34.1 [facility] [address] [address] 07 Feb, 2016 Lymph nodes enlarged R59.9 [facility] [place] [address] [place] [address] Jan, Left otitis media, unspecified chronicity, unspecified otitis media type H66.92 [place] [id number] [place] [address] 08 Jan, 2016 Dysthymic disorder F34.1 and Generalized anxiety disorder F41.1 [place] [address] [address] Dec, Dental examination Z01.20 [place] [id number] [place] [address] Dec, Dysthymic disorder F34.1 and Generalized anxiety disorder F41.1 [place] [id number] [place] [address] Dec, Gastroesophageal reflux disease without esophagitis K21.9 and Arthritis M19.90 [place] [address] [id number] [place] [address]- [address] Dec, Dysthymic disorder F34.1 and Generalized anxiety disorder F41.1 [facility] [address] [place] [address] [address] [id number] [place] [address] Dec, Gingivitis K05.10 [place] [address] [id number] [place] [address]- [address] Dec, Essential hypertension I10 ; Epigastric pain R10.13 ; Mixed hyperlipidemia E78.2 ; Proptosis H05.20 and Gastroesophageal reflux disease without esophagitis K21.9 [place] [address] [id number] [place] [address]- [address] Dec, [place] [address] [address] Nov, Dysthymic disorder F34.1 [facility] [id number] [place] [address] Nov, Epigastric pain R10.13 and Gastroesophageal reflux disease , esophagitis presence not specified K21.9 [facility] [address] [place] [address]43- [address] 24 Nov, 2015 Depression, unspecified depression type F32.9 [facility] [id number] [place] [address]- [address] 24 Nov, 2015 Essential hypertension I10 ; Mixed hyperlipidemia E78.2 ; Proptosis H05.20 ; Gastroesophageal reflux disease without esophagitis K21.9 and Depression, unspecified depression type F32.9 [facility] [id number] [place] [address] 22 Nov, 2015 [facility] [place] [address] [address] 21 Nov, 2015 Sore in mouth K13.79 [facility] [place] [address] [address] [id number] [place] [address] 14 Nov, 2015 Left-sided chest wall pain R07.89 and Pain of right calf M79.661 [place] [address] [place] [address] 06 Nov, 2015 Gastroesophageal reflux disease, esophagitis presence not specified K21.9 and Environmental allergies Z91.09 [facility] [address] [place] [phone] October, Dental examination Z01.20 IMMUNIZATIONS No Known Immunizations SOCIAL HISTORY Never Assessed REASON FOR VISIT Requests return call PLAN OF CARE VITAL SIGNS MEDICATIONS Unknown Medications RESULTS No Results PROCEDURES No Known procedures INSTRUCTIONS MEDICATIONS ADMINISTERED No Known Medications MEDICAL (GENERAL) HISTORY Type Description Date Medical History pneumonia Medical History High Blood pressure Medical History bronchitis Medical History kidney disease Medical History anemia Medical History arthritis Medical History Gout Medical History diabetic Surgical History Gallbladder Surgical History tonsillectomy Surgical History ENDO 02/2016 Hospitalization History chest pains 2013 Hospitalization History involuntary psych hold 01/20-01/24/17
--- OUTSIDE RECORDS SUMMARY | 2017-11-21 17:38 | XMS REPORT ---
Author Author GEORGES MOON Organization [facility] Address [address] [place] [address] Care Team Providers Care Preschool Program Director Name Role Phone GEORGES MOON Unavailable PROBLEMS Type Condition ICD9-CM Code [id number] Code Onset Dates Condition Status SNOMED Code Problem Dysthymic disorder F34.1 Active 18736029 Problem Arthritis M19.90 Active 1239785 Problem Generalized anxiety disorder F41.1 Active 34513832 Problem Gastroesophageal reflux disease without esophagitis K21.9 Active 029916984 Problem Essential hypertension I10 Active 75682510 Problem Mixed hyperlipidemia E78.2 Active 866463866 Problem Vertigo R42 Active 517739725 Problem Type 2 diabetes mellitus without complication, without long-term current use of insulin E11.9 Active 722571760 Problem Acute left-sided low back pain with left-sided sciatica M54.42 Active 250866646 Problem Gingivitis K05.10 Active 47487422 Problem Exophthalmia H05.20 Active 68444627 Problem Acute gout of right ankle, 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 Active 321588089 ALLERGIES No Information ENCOUNTERS Encounter Location Date Diagnosis [facility] [id number] [place] [address]1584- [address]783 Dec, [facility] [id number] [place] [address] [phone] Sep, Dental examination Z01.20 [facility] [id number] [place] [address] 71688- 2530 Sep, [facility] [id number] [place] [address] 86714- 2900 Aug, Dental examination Z01.20 [facility] [id number] [place] [address] 02140- 6626 Aug, [facility] [address] [place] [id number] [place] [address] 20159- 4663 19 Aug, 2017 [facility] [address] [address] 14 Aug, 2017 Aphthous stomatitis K12.0 and BMI 45.0-49.9, adult Z68.42 [place] [address] [address]- [address] 05 Aug, 2017 [place] [address] 46[address]- 9953 05 Aug, 2017 Vertigo R42 ; Impacted cerumen of both ears H61.23 ; Abnormal RBC indices R71.8 ; Exophthalmia H05.20 ; Elevated glucose R73.09 ; Type 2 diabetes mellitus without complication, without long-term current use of insulin E11.9 and BMI 45.0-49.9, adult Z68.42 [place] [address] 41488- 1863 19 Jul, 2017 Dizziness R42 and BMI 45.0-49.9, adult Z68.42 [facility] [address] [address] Jun, Vertigo R42 and BMI 45.0-49.9, adult Z68.42 [facility] [address] [id number] May, Dental caries K02.9 [facility] [address] [id number] [phone] May, 2017 Encounter for dental exam and cleaning w/o abnormal findings Z01.20 [place] [address] 74701- 3[address] 07 Apr, 2017 Acute non-recurrent maxillary sinusitis J01.00 [place] [address] [address]24- [address]01 09 Mar, 2017 [place] [address] [phone] 0296 Feb, Acute gout of right ankle, 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 [facility] [address] [place] [address] [phone]- 0802 11 Feb, 2017 [facility] [id number] [place] [address] [phone] Jan, Dental examination Z01.20 [facility] [id number] [place] [address] [phone] Jan, Encounter for dental examination and cleaning without abnormal findings Z01.20 [facility] [id number] [place] [address] [phone] Jan, Dental examination Z01.20 [facility] [id number] [place] [address] [phone]- 9886 Jan, Acute non-recurrent frontal sinusitis J01.10 ; Essential hypertension I10 ; Mixed hyperlipidemia E78.2 ; Sore throat J02.9 and Gastroesophageal reflux disease without esophagitis K21.9 [facility] [address] [place] [id number] [place] [address] [phone] Dec, [facility] [id number] [place] [address] 26168 -6868 Dec, Other secondary acute gout of multiple sites M10.49 and Acute upper respiratory infection, unspecified J06.9 [facility] [id number] [place] [address] 55157 -3705 Nov, Sore throat J02.9 ; Acute nasopharyngitis (common cold) J00 and Acute left-sided low back pain with left-sided sciatica M54.42 [facility] [id number] [place] [address] [phone] October, Encounter for dental examination and cleaning without abnormal findings Z01.20 [facility] [id number] [place] [address] 05432 -8626 October, Acute upper respiratory infection, unspecified J06.9 and Sore throat J02.9 [facility] [address] [place] [address] [phone] Sep, Encounter for dental examination and cleaning without abnormal findings Z01.20 [facility] [id number] [place] [address] 82723- 2653 Sep, Gastroesophageal reflux disease without esophagitis K21.9 [facility] [address] [address]10 [address] Aug, Sore throat J02.9 and Acute idiopathic gout of right wrist M10.031 [facility] [address] [id number] Jul, Encounter for dental examination and cleaning without abnormal findings Z01.20 [facility] [address] 71288- 1791 Jun, [facility] [address] [address]26- 1906 Jun, Lower abdominal pain R10.30 [facility] [address] [id number] Jun, Encounter for dental examination and cleaning without abnormal findings Z01.20 [facility] [address] 45999- 8757 May, Chronic kidney disease, unspecified stage N18.9 and Mouth ulcer K12.1 [facility] [address] 39047- 7115 May, Chronic kidney disease, unspecified stage N18.9 [facility] [address] 05229- 5315 May, Encounter for dental examination and cleaning without abnormal findings Z01.20 [facility] [address] 50130- 2735 May, Encounter for dental examination and cleaning without abnormal findings Z01.20 [facility] [address] 07096- 1013 May, Hypokalemia E87.6 ; Essential hypertension I10 ; Gastroesophageal reflux disease without esophagitis K21.9 and Right-sided thoracic back pain, unspecified chronicity M54.6 [facility] [place] [address] 35[address]9836 May, Oral candidiasis B37.0 [place] [address] 14748- 6869 May, [place] [address] 06297- 3343 May, Cracked tooth K03.81 and Retained dental root K08.3 [place] [address] 13774- 6561 May, Dental examination Z01.20 [facility] [place] [address] [address] Apr, Acute right flank pain R10.9 and Acute left lower quadrant pain R10.32 [place] [address] 68671- 9692 08 Apr, 2016 Bronchitis J40 [place] [address] 68865- 2686 Mar, Dental examination Z01.20 [place] [address] 58494- 3941 07 Mar, 2016 Dysthymic disorder F34.1 [facility] [place] [address] 9[address]8114 05 Mar, 2016 Gingivitis K05.10 and Torticollis M43.6 [place] [address] 88503- 8492 08 Feb, 2016 Dysthymic disorder F34.1 [facility] [place] [address] 61294 [address]6800 07 Feb, 2016 Lymph nodes enlarged R59.9 [facility] [place] [address] [place] [id number] [place] [address] 22078 -3235 Jan, Left otitis media, unspecified chronicity, unspecified otitis media type H66.92 [place] [address] [id number] [place] [address] 56963- 8668 08 Jan, 2016 Dysthymic disorder F34.1 and Generalized anxiety disorder F41.1 [place] [address] 43784- 0520 Dec, Dental examination Z01.20 [place] [address] 56054- 0118 Dec, Dysthymic disorder F34.1 and Generalized anxiety disorder F41.1 [place] [address] 10241- 5514 Dec, Gastroesophageal reflux disease without esophagitis K21.9 and Arthritis M19.90 [place] [address] 82243- 2428 Dec, Dysthymic disorder F34.1 and Generalized anxiety disorder F41.1 [place] [address] 14[address]236 Dec, Gingivitis K05.10 [place] [address] 87646- 0553 Dec, Essential hypertension I10 ; Epigastric pain R10.13 ; Mixed hyperlipidemia E78.2 ; Proptosis H05.20 and Gastroesophageal reflux disease without esophagitis K21.9 [place] [address] [id number] [place] [address] 24373- 8034 Dec, [place] [address] 75608- 9822 Nov, Dysthymic disorder F34.1 [facility] [place] [address] [address] [id number] [place] [address] 11186 -8254 Nov, Epigastric pain R10.13 and Gastroesophageal reflux disease , esophagitis presence not specified K21.9 [facility] [address] [place] [address] 57771- 7839 24 Nov, 2015 Depression, unspecified depression type F32.9 [place] [address] [id number] [place] [address] 65922- 9433 24 Nov, 2015 Essential hypertension I10 ; Mixed hyperlipidemia E78.2 ; Proptosis H05.20 ; Gastroesophageal reflux disease without esophagitis K21.9 and Depression, unspecified depression type F32.9 [place] [address] [id number] [place] [address] 118266- 5696 22 Nov, 2015 [facility] [address] [address] 21 Nov, 2015 Sore in mouth K13.79 [facility] [address] 47[address] -8322 14 Nov, 2015 Left-sided chest wall pain R07.89 and Pain of right calf M79.661 [place] [address] [place] [id number] [place] [address] 01594- 0722 06 Nov, 2015 Gastroesophageal reflux disease, esophagitis presence not specified K21.9 and Environmental allergies Z91.09 [facility] [address] [place] [address] [phone] October, Dental examination Z01.20 IMMUNIZATIONS No Known Immunizations SOCIAL HISTORY Never Assessed REASON FOR VISIT FILLING PLAN OF CARE Activity Details Follow Up Restorative Reason: VITAL SIGNS MEDICATIONS Unknown Medications RESULTS No Results PROCEDURES Procedure Date Ordered Result Body Site RESIN COMPOS - 1 SURFACE POSTERIOR Feb 20, 2017 RESIN COMPOS - 1 SURFACE POSTERIOR Feb 20, 2017 Billing Notes on claim Feb 20, 2017 INSTRUCTIONS MEDICATIONS ADMINISTERED No Known Medications MEDICAL [...]
--- OUTSIDE RECORDS SUMMARY | 2017-11-21 17:38 | XMS REPORT ---
Author JENNIFFER Brink [facility] [place] eClinical[employer] Address Unknown Phone Unavailable Care Team Providers Care Enterprise Business Architect Name Role Phone JENNIFFER NELSON CP Unavailable Allergies, Adverse Reactions, Alerts Substance Reaction Event Type Penicillin V Potassium Info Not Available Drug Allergy Problems Problem Type Condition Code Onset Dates Condition Status Problem Mixed hyperlipidemia E78.2 Active Problem Essential hypertension I10 Active Problem Dysthymic disorder F34.1 Active Problem Gastroesophageal reflux disease without esophagitis K21.9 Active Assessment Gingivitis K05.10 Active Medications Medication Code System Code Instructions Start Date End Date Status Dosage Acidophilus [facility] [address]48501 Orally not defined Aloe Vera Concentrate [facility] [address]-61580 25 MG Orally not defined Potassium Chloride Mee ER [facility] [address]-95 10 MEQ Orally Once a day 1 tablet with food Vitamin C [facility] [address]344-[address]29 500 MG Orally not defined Pravastatin Sodium [facility] [address]-40 10 MG Orally Once a day 1 tablet Magnesium [facility] [address]-24 250 MG Orally Once a day 1 tablet with a meal Colchicine [facility] [address]-60 0.6 MG Orally Once a day 1 tablet Naproxen [facility] [address]-84 500 MG Orally every 12 hrs 1 tablet as needed Lisinopril [facility] [address]-44 10 MG Orally Once a day 1 tablet Vitamin B-6 [facility] [address]-09 100 MG Orally Once a day 1 tablet Protonix [facility] 22988655906 40 Orally Once a day 1 tablet Protonix [facility] [address]-98 40 mg Orally Once a day November 27, 2015 1 tablet Mens Multi Vitamin & Mineral [facility] [address]04-21789 Orally not defined Allopurinol [facility] [address]-46 300 MG Orally Once a day 1.5 tablet Flonase [facility] [address]-04 50 MCG/ACT Nasally Once a day 1 spray in each nostril Vitamin D3 [facility] 65[address]-08341 1000 UNIT Orally Once a day 1 capsule Chlorhexidine Gluconate [facility] [address]-07 0.12 % Mouth/Throat 2 times a day December 28, 2015 January 07, 2016 15 ml swish for 30-60 seconds and spit Procedures Procedure Coding System Code Date Office Visit, Est Pt., Level 3 CPT-4 60728 December 28, 2015 [facility] ESTABLISHED PATIENT CPT-4 G0467 December 28, 2015 Vital Signs Date/Time: December 28, 2015 Cardiac Monitoring Heart Rate 84 bpm Weight 308.2 lbs Height 70 in Blood Pressure Diastolic 70 mmHg Blood Pressure Systolic 104 mmHg Results No Known Results Summary Purpose eClinicalWorks Submission
--- OUTSIDE RECORDS SUMMARY | 2017-11-21 17:38 | XMS REPORT ---
Author Author JOHN LORENZO [facility] IN [facility] Address [address] [place] [address] Care Team Providers Care Enrichment Director Name Role Phone LORENZOARMANDOJOHN Unavailable PROBLEMS Type Condition ICD9-CM Code [id number] Code Onset Dates Condition Status SNOMED Code Problem Dysthymic disorder F34.1 Active 64297889 Problem Arthritis M19.90 Active 0628151 Problem Generalized anxiety disorder F41.1 Active 17290180 Problem Gastroesophageal reflux disease without esophagitis K21.9 Active 504357206 Problem Essential hypertension I10 Active 88585765 Problem Mixed hyperlipidemia E78.2 Active 701216611 Problem Vertigo R42 Active 982403936 Problem Type 2 diabetes mellitus without complication, without long-term current use of insulin E11.9 Active 836197913 Problem Acute left-sided low back pain with left-sided sciatica M54.42 Active 418867876 Problem Gingivitis K05.10 Active 57856682 Problem Exophthalmia H05.20 Active 33129975 Problem Acute gout of right ankle, 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 Active 274216419 ALLERGIES Substance Reaction Event Type Date Status Penicillin V Potassium Unknown Drug Allergy Dec, Active ENCOUNTERS Encounter Location Date Diagnosis [facility] [address] [id number] [id number] Sep, [facility] [id number], [place] [address] Aug, Dental examination Z01.20 [facility] [id number] [place] [address] 28 Aug, 2017 [facility] [id number] [address] 19 Aug, 2017 [facility] [address], [place] [address] 14 Aug, 2017 Aphthous stomatitis K12.0 and BMI 45.0-49.9, adult Z68.42 [place] [address] [address] 05 Aug, 2017 [place] [address] [address] 05 Aug, 2017 Vertigo R42 ; Impacted cerumen of both ears H61.23 ; Abnormal RBC indices R71.8 ; Exophthalmia H05.20 ; Elevated glucose R73.09 ; Type 2 diabetes mellitus without complication, without long-term current use of insulin E11.9 and BMI 45.0-49.9, adult Z68.42 [place] [address] [address] 19 Jul, 2017 Dizziness R42 and BMI 45.0-49.9, adult Z68.42 [facility] [address] [address] Jun, Vertigo R42 and BMI 45.0-49.9, adult Z68.42 [facility] [address] [id number] May, Dental caries K02.9 [facility] [address] [id number] May, 2017 Encounter for dental exam and cleaning w/o abnormal findings Z01.20 [place] [address] [address] 07 Apr, 2017 Acute non-recurrent maxillary sinusitis J01.00 [place] [address] [address] 09 Mar, 2017 [place] [address] [address] 11 Feb, 2017 Acute gout of right ankle, 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 [place] [address] [address] Feb, [facility] [id number] [place] [id number] Jan, Dental examination Z01.20 [facility] [id number] [place] [id number] Jan, Encounter for dental examination and cleaning without abnormal findings Z01.20 [facility] [id number] [place] [id number] Jan, Dental examination Z01.20 [facility] [address] [address] Jan, Acute non-recurrent frontal sinusitis J01.10 ; Essential hypertension I10 ; Mixed hyperlipidemia E78.2 ; Sore throat J02.9 and Gastroesophageal reflux disease without esophagitis K21.9 [facility] [address] [id number] Dec, [facility] [id number] [place] [id number] Dec, Other secondary acute gout of multiple sites M10.49 and Acute upper respiratory infection, unspecified J06.9 [facility] [address] [id number] Nov, Sore throat J02.9 ; Acute nasopharyngitis (common cold) J00 and Acute left-sided low back pain with left-sided sciatica M54.42 [facility] [id number] [place] [id number] October, Encounter for dental examination and cleaning without abnormal findings Z01.20 [facility] [id number] [place] [address] October, Acute upper respiratory infection, unspecified J06.9 and Sore throat J02.9 [facility] [id number] [place] [id number] Sep, Encounter for dental examination and cleaning without abnormal findings Z01.20 [facility] [address] [place] [address] Sep, Gastroesophageal reflux disease without esophagitis K21.9 [facility] [address] [address] Aug, Sore throat J02.9 and Acute idiopathic gout of right wrist M10.031 [facility] [address] [id number] Jul, Encounter for dental examination and cleaning without abnormal findings Z01.20 [place] [address] [address] Jun, [place] [address] [address] Jun, Lower abdominal pain R10.30 [facility] [id number] [place] [id number] Jun, Encounter for dental examination and cleaning without abnormal findings Z01.20 [place] [address] [address] May, Chronic kidney disease, unspecified stage N18.9 and Mouth ulcer K12.1 [place] [address] [address] May, Chronic kidney disease, unspecified stage N18.9 [place] [address] [address] May, Encounter for dental examination and cleaning without abnormal findings Z01.20 [place] [id number] [place] [address] May, Encounter for dental examination and cleaning without abnormal findings Z01.20 [place] [address] [address] May, Hypokalemia E87.6 ; Essential hypertension I10 ; Gastroesophageal reflux disease without esophagitis K21.9 and Right-sided thoracic back pain, unspecified chronicity M54.6 [facility] [id number] [place] [address] May, Oral candidiasis B37.0 [place] [address] [address] May, [place] [id number] [place] [address] May, Cracked tooth K03.81 and Retained dental root K08.3 [place] [id number] [place] [address] May, Dental examination Z01.20 [facility] [place] [address] [address] Apr, Acute right flank pain R10.9 and Acute left lower quadrant pain R10.32 [place] [address] [address] Apr, Bronchitis J40 [place] [address] [address] Mar, Dental examination Z01.20 [place] [address] [address] Mar, Dysthymic disorder F34.1 [facility] [place] [id number] [place] [address] 05 Mar, 2016 Gingivitis K05.10 and Torticollis M43.6 [place] [id number] [place] [address] 08 Feb, 2016 Dysthymic disorder F34.1 [facility] [place] [id number] [place] [address] 07 Feb, 2016 Lymph nodes enlarged R59.9 [facility] [place] [id number] [place] [address] Jan, Left otitis media, unspecified chronicity, unspecified otitis media type H66.92 [place] [id number] [place] [address] Jan, Dysthymic disorder F34.1 and Generalized anxiety disorder F41.1 [place] [address] [address] Dec, Dental examination Z01.20 [place] [address] [address] Dec, Dysthymic disorder F34.1 and Generalized anxiety disorder F41.1 [place] [address] [address] Dec, Gastroesophageal reflux disease without esophagitis K21.9 and Arthritis M19.90 [place] [address] [address] Dec, Dysthymic disorder F34.1 and Generalized anxiety disorder F41.1 [facility] [place] [address] [address] Dec, Gingivitis K05.10 [place] [address] [address] Dec, Essential hypertension I10 ; Epigastric pain R10.13 ; Mixed hyperlipidemia E78.2 ; Proptosis H05.20 and Gastroesophageal reflux disease without esophagitis K21.9 [place] [id number] [place] [address] Dec, [place] [address] [address] Nov, Dysthymic disorder F34.1 [facility] [address] [address] Nov, Epigastric pain R10.13 and Gastroesophageal reflux disease , esophagitis presence not specified K21.9 [place] [id number] [place] [address] Nov, Depression, unspecified depression type F32.9 [facility] [id number] [place] [address] Nov, Essential hypertension I10 ; Mixed hyperlipidemia E78.2 ; Proptosis H05.20 ; Gastroesophageal reflux disease without esophagitis K21.9 and Depression, unspecified depression type F32.9 [facility] [id number] [place] [address] Nov, [facility] [address] [address] Nov, Sore in mouth K13.79 [facility] [address] [address] 14 Nov, 2015 Left-sided chest wall pain R07.89 and Pain of right calf M79.661 [place] [id number] [place] [address] Nov, Gastroesophageal reflux disease, esophagitis presence not specified K21.9 and Environmental allergies Z91.09 [facility] [id number] [place] [id number] October, Dental examination Z01.20 IMMUNIZATIONS No Known Immunizations SOCIAL HISTORY Never Assessed REASON FOR VISIT Gout JStrasserRN PLAN OF CARE Activity Details Follow Up prn Reason: VITAL SIGNS Height 70 in 2017-01-09 Weight 304 lbs 2017-01-09 Temperature 99.1 degrees Fahrenheit 2017-01-09 Heart Rate 88 bpm 2017-01-09 Respiratory Rate 2017-01-09 BMI 43.61 kg/m2 2017-01-09 Blood pressure systolic 130 mmHg 2017-01-09 Blood pressure diastolic 92 mmHg 2017-01-09 MEDICATIONS Medication Instructions Dosage Frequency Start Date End Date Duration Status Pravastatin Sodium 10 MG Orally Once a day 1 tablet 24h Active Vitamin D3 1000 UNIT Orally Once a day 1 capsule 24h Active Magnesium 250 MG Orally Once a day 1 tablet with a meal 24h Active Uloric 80 MG Orally Once a day 1 tablet 24h Active PredniSONE 20 mg Orally Take 60mg on days 1-2, 40mg on days 3-4, 20mg on days 5-6 As directed Dec, Dec, 6 days Active Potassium Chloride Mee ER 10 MEQ Orally Once a day 2 tablets with food 24h Active Lisinopril 10 MG Orally Once a day 1 tablet 24h Active Protonix 40 Orally Once a day 1 tablet 24h 30 Active Vitamin B-6 100 MG Orally Once a day 1 tablet 24h Active Mens Multi Vitamin & Mineral Active Vitamin C 500 MG Active Colchicine 0.6 MG Orally 2 tablets now and 1 tablet in 1hour As directed Dec, Dec, 1 days Active RESULTS No Results PROCEDURES Procedure Date Ordered Result Body Site [facility] VISIT ESTABLISHED PATIENT January 09, 2017 INSTRUCTIONS MEDICATIONS ADMINISTERED No Known Medications MEDICAL (GENERAL) HISTORY Type Description Date Medical History pneumonia Medical History High Blood pressure Medical History bronchitis Medical History kidney disease Medical History anemia Medical History arthritis Medical History Gout Surgical History Gallbladder Surgical History tonsillectomy Surgical History ENDO 02/2016 Hospitalization History chest pains 2013 Hospitalization History involuntary psych hold 01/20-01/24/17
--- OUTSIDE RECORDS SUMMARY | 2017-11-21 17:39 | XMS REPORT ---
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 Name Role Phone MADY JIMENEZ Unavailable PROBLEMS Type Condition ICD9-CM Code [id number] Code Onset Dates Condition Status SNOMED Code Problem Dysthymic disorder F34.1 Active 61171437 Problem Arthritis M19.90 Active 4590333 Problem Generalized anxiety disorder F41.1 Active 05746937 Problem Gastroesophageal reflux disease without esophagitis K21.9 Active 577542728 Problem Essential hypertension I10 Active 88408007 Problem Mixed hyperlipidemia E78.2 Active 597428363 Problem Vertigo R42 Active 352951731 Problem Type 2 diabetes mellitus without complication, without long-term current use of insulin E11.9 Active 361289380 Problem Acute left-sided low back pain with left-sided sciatica M54.42 Active 299545774 Problem Gingivitis K05.10 Active 25220042 Problem Exophthalmia H05.20 Active 59532261 Problem Acute gout of right ankle, 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 Active 995722512 ALLERGIES Substance Reaction Event Type Date Status Penicillin V Potassium Unknown Drug Allergy Feb, Active ENCOUNTERS Encounter Location Date Diagnosis [facility] [address] [id number] [address] Dec, [facility] [id number] [id number] Sep, Dental examination Z01.20 [facility] [address] [place] [address] Sep, [facility] [address], [place] [address] Aug, Dental examination Z01.20 [facility] [address] [place] [address] 76872[address] 5298 Aug, [facility] [id number] [place] [address]21[address] 9202 Aug, [facility] [id number] [place] [address]5962 [address]5067 14 Aug, 2017 Aphthous stomatitis K12.0 and BMI 45.0-49.9, adult Z68.42 [place] [address] [address] 05 Aug, 2017 [place] [id number] [place] [address] 0[address] 05 Aug, 2017 Vertigo R42 ; Impacted cerumen of both ears H61.23 ; Abnormal RBC indices R71.8 ; Exophthalmia H05.20 ; Elevated glucose R73.09 ; Type 2 diabetes mellitus without complication, without long-term current use of insulin E11.9 and BMI 45.0-49.9, adult Z68.42 [facility] [id number] [place] [address] 50931[address] 8754 Jul, Dizziness R42 and BMI 45.0-49.9, adult Z68.42 [facility] [id number] [place] [address] Jun, Vertigo R42 and BMI 45.0-49.9, adult Z68.42 [facility] [id number] [place] [id number] May, Dental caries K02.9 [facility] [id number] [place] [id number] May, Encounter for dental exam and cleaning w/o abnormal findings Z01.20 [place] [address] [address] 07 Apr, 2017 Acute non-recurrent maxillary sinusitis J01.00 [place] [id number] [place] [address] 59447- 1005 09 Mar, 2017 [address] [address] 11 Feb, 2017 Acute gout of right ankle, 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 [facility] [id number] [place] [address] 86958- 9096 Feb, [facility] [id number] [place] [id number] Jan, Dental examination Z01.20 [facility] [address] [id number] Jan, Encounter for dental examination and cleaning without abnormal findings Z01.20 [facility] [id number] [place] [address] [id number] Jan, Dental examination Z01.20 [facility] [id number] [place] [address] 28787- 9106 Jan, Acute non-recurrent frontal sinusitis J01.10 ; Essential hypertension I10 ; Mixed hyperlipidemia E78.2 ; Sore throat J02.9 and Gastroesophageal reflux disease without esophagitis K21.9 [facility] [id number] [place] [id number] Dec, [facility] [id number] [place] [address] 31279 -[address]50 Dec, Other secondary acute gout of multiple sites M10.49 and Acute upper respiratory infection, unspecified J06.9 [facility] [id number] [place] [address]77 -4404 Nov, Sore throat J02.9 ; Acute nasopharyngitis (common cold) J00 and Acute left-sided low back pain with left-sided sciatica M54.42 [facility] [id number] [place] [address] [id number] October, Encounter for dental examination and cleaning without abnormal findings Z01.20 [facility] [id number] [place] [address] 27969 -[address]876 October, Acute upper respiratory infection, unspecified J06.9 and Sore throat J02.9 [facility] [address] [place] [address] [id number] Sep, Encounter for dental examination and cleaning without abnormal findings Z01.20 [facility] [id number] [place] [address] 70870- 0978 Sep, Gastroesophageal reflux disease without esophagitis K21.9 [facility] [id number] [place] [address] 40182 -8857 Aug, Sore throat J02.9 and Acute idiopathic gout of right wrist M10.031 [facility] [address] [id number] Jul, Encounter for dental examination and cleaning without abnormal findings Z01.20 [facility] [id number] [place] [address] 33948- 4590 Jun, [facility] [address] [address] Jun, Lower abdominal pain R10.30 [facility] [id number] [place] [address] [id number] Jun, Encounter for dental examination and cleaning without abnormal findings Z01.20 [facility] [address] [place] [address] 15047- 4200 May, Chronic kidney disease, unspecified stage N18.9 and Mouth ulcer K12.1 [facility] [id number] [place] [address] 12672- 0826 May, Chronic kidney disease, unspecified stage N18.9 [facility] [id number] [place] [address] 46948- 9327 May, Encounter for dental examination and cleaning without abnormal findings Z01.20 [facility] [address] [place] [address] 77032- 8498 May, Encounter for dental examination and cleaning without abnormal findings Z01.20 [facility] [address] [address]- [address] 16 May, 2016 Hypokalemia E87.6 ; Essential hypertension I10 ; Gastroesophageal reflux disease without esophagitis K21.9 and Right-sided thoracic back pain, unspecified chronicity M54.6 [facility] [address] [address]159 13 May, 2016 Oral candidiasis B37.[address] [address]- [address]11 May, [address] [address]27- [address] May, Cracked tooth K03.81 and Retained dental root K08.[address] [address]11- [address]83 May, Dental examination Z01.20 [facility] [address] [address] Apr, Acute right flank pain R10.9 and Acute left lower quadrant pain R10.[address] [address]- [address]1 08 Apr, [address] J[address] 59[address]- [address]161 13 Mar, 2016 Dental examination Z01.[address] 00594- 1734 Mar, Dysthymic disorder F34.1 [facility] [address] [address]54 [address] 05 Mar, 2016 Gingivitis K05.10 and Torticollis M43.[address] 35[address]- 7949 08 Feb, 2016 Dysthymic disorder F34.1 [facility] [address] [address]5 Feb, Lymph nodes enlarged R59.9 [facility] [id number] [place] [address] 02650 -2748 Jan, Left otitis media, unspecified chronicity, unspecified otitis media type H66.92 [place] [id number] [place] [address] 60215- 7759 08 Jan, 2016 Dysthymic disorder F34.1 and Generalized anxiety disorder F41.1 [place] [address] 17[address]- [address]2 Dec, Dental examination Z01.20 [place] [address] 89539- [address]997 Dec, Dysthymic disorder F34.1 and Generalized anxiety disorder F41.1 [place] [address] 15226- 2487 Dec, Gastroesophageal reflux disease without esophagitis K21.9 and Arthritis M19.90 [place] [address] 10056- 1719 Dec, Dysthymic disorder F34.1 and Generalized anxiety disorder F41.1 [facility] [place] [id number] [place] [address] 46782 -1734 Dec, Gingivitis K05.10 [place] [id number] [place] [address] 48747- 1735 Dec, Essential hypertension I10 ; Epigastric pain R10.13 ; Mixed hyperlipidemia E78.2 ; Proptosis H05.20 and Gastroesophageal reflux disease without esophagitis K21.9 [place] [id number] [place] [address] 63413- 8982 Dec, [place] [id number] [place] [address] 94763- 3496 Nov, Dysthymic disorder F34.1 [facility] [id number] [place] [address] 56962 -2132 Nov, Epigastric pain R10.13 and Gastroesophageal reflux disease , esophagitis presence not specified K21.9 [place] [address] 127467- 8987 24 Nov, 2015 Depression, unspecified depression type F32.9 [place] [address] [id number]- [address]76 24 Nov, 2015 Essential hypertension I10 ; Mixed hyperlipidemia E78.2 ; Proptosis H05.20 ; Gastroesophageal reflux disease without esophagitis K21.9 and Depression, unspecified depression type F32.9 [place] [address] 127467- 9555 22 Nov, 2015 [facility] [place] [address] 36854 [address]81 21 Nov, 2015 Sore in mouth K13.79 [facility] [place] [id number] -3875 14 Nov, 2015 Left-sided chest wall pain R07.89 and Pain of right calf M79.661 [place] [address] [id number]- 2410 06 Nov, 2015 Gastroesophageal reflux disease, esophagitis presence not specified K21.9 and Environmental allergies Z91.09 [facility] [address] [id number] October, Dental examination Z01.20 IMMUNIZATIONS Vaccine Route Administration Date Status SOLUMEDROL (UP TO 125 MG) IM Intramuscular Mar 03, 2017 Administered SOCIAL HISTORY Never Assessed REASON FOR VISIT Gout flare up--Madhavi Springer MA PLAN OF CARE Activity Details Follow Up prn Reason: VITAL SIGNS Height 70 in 2017-03-03 Weight 309.1 lbs 2017-03-03 Temperature 99.0 degrees Fahrenheit 2017-03-03 Heart Rate 82 bpm 2017-03-03 Respiratory Rate 20 2017-03-03 BMI 44.35 kg/m2 2017-03-03 Blood pressure systolic 120 mmHg 2017-03-03 Blood pressure diastolic 98 mmHg 2017-03-03 MEDICATIONS Medication Instructions Dosage Frequency Start Date End Date Duration Status Uloric 80 MG Orally Once a day 1 tablet 24h Active Protonix 40 Orally Once a day 1 tablet 24h 30 Active Mens Multi Vitamin & Mineral Active Pravastatin Sodium 10 mg Orally Once a day 1 tablet 24h 30 days Active PredniSONE 10 mg Orally Once a day for final day 3 tablet daily X 3 days, 2 tabs daily X 2 days. 1 Feb, Active Lisinopril 10 mg Orally Once a day 1 tablet 24h 30 days Active Aripiprazole 5 MG Orally Once a day 1 tablet 24h Active Eye Health Formula 180-15-5 MG Active Potassium Chloride Mee ER 10 MEQ Orally Once a day 2 tablets with food 24h Jul, 30 days Active RESULTS No Results PROCEDURES Procedure Date Ordered Result Body Site [facility] VISIT ESTABLISHED PATIENT Mar 03, 2017 THER/PROPH/DIAG INJ, SC/IM Mar 03, 2017 SOLUMEDROL (UP TO 125 MG) Mar 03, 2017 INSTRUCTIONS MEDICATIONS ADMINISTERED No Known Medications [...]
--- OUTSIDE RECORDS SUMMARY | 2017-11-21 17:39 | XMS REPORT ---
Author Author EDGARDO BATES [facility] eClinicalWorks Address Unknown Phone Unavailable Care Team Providers Care [employer] Tutor Name Role Phone EDGARDO BATES CP Unavailable Allergies No Known Allergies Problems Problem Type Condition Code Onset Dates Condition Status Assessment Proptosis H05.20 Active Assessment Gastroesophageal reflux disease without esophagitis K21.9 Active Problem Mixed hyperlipidemia E78.2 Active Problem Essential hypertension I10 Active Problem Dysthymic disorder F34.1 Active Assessment Epigastric pain R10.13 Active Assessment Mixed hyperlipidemia E78.2 Active Problem Gastroesophageal reflux disease without esophagitis K21.9 Active Assessment Essential hypertension I10 Active Medications No Known Medications Procedures Procedure Coding System Code Date VENIPUNCT, ROUTINE* CPT-4 36996 December 28, 2015 LAB NOT BILLED BY [facility] CPT-4 NOBLL December 28, 2015 Results No Known Results Summary Purpose eClinicalWorks Submission
--- OUTSIDE RECORDS SUMMARY | 2017-11-21 17:39 | XMS REPORT ---
Author Author GEORGES MOON Organization [facility] Address [address] [place] [address] Care Team Providers Care Supervisor Modern Languages Name Role Phone GEORGES MOON Unavailable PROBLEMS Type Condition ICD9-CM Code VNQ55-EL Code Onset Dates Condition Status SNOMED Code Problem Dysthymic disorder F34.1 Active 62487143 Problem Arthritis M19.90 Active 0037810 Problem Generalized anxiety disorder F41.1 Active 64752182 Problem Gastroesophageal reflux disease without esophagitis K21.9 Active 816125112 Problem Essential hypertension I10 Active 39180785 Problem Mixed hyperlipidemia E78.2 Active 404229140 Problem Vertigo R42 Active 392849772 Problem Type 2 diabetes mellitus without complication, without long-term current use of insulin E11.9 Active 451948746 Problem Acute left-sided low back pain with left-sided sciatica M54.42 Active 185041423 Problem Gingivitis K05.10 Active 12173222 Problem Exophthalmia H05.20 Active 74352910 Problem Acute gout of right ankle, 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 Active 719263680 ALLERGIES Substance Reaction Event Type Date Status Penicillin V Potassium Unknown Drug Allergy Jan, Active ENCOUNTERS Encounter Location Date Diagnosis [facility], [place] [id number], [place] [address] Dec, [facility] [address] [id number] [phone] Sep, Dental examination Z01.20 [facility] [place] [id number] [place] [address] Sep, [facility] [place] [address], [place] [address] Aug, Dental examination Z01.20 [facility] [place] [address] [place] [address]696[address] 28 Aug, 2017 [facility] [place] [id number] [place] [address]46[address] Aug, [facility] [address] [address] 14 Aug, 2017 Aphthous stomatitis K12.0 and BMI 45.0-49.9, adult Z68.42 [place] [address] [address] 05 Aug, 2017 [place] [address] [address] Aug, Vertigo R42 ; Impacted cerumen of both ears H61.23 ; Abnormal RBC indices R71.8 ; Exophthalmia H05.20 ; Elevated glucose R73.09 ; Type 2 diabetes mellitus without complication, without long-term current use of insulin E11.9 and BMI 45.0-49.9, adult Z68.42 [facility] [place] [id number] [place] [address] Jul, Dizziness R42 and BMI 45.0-49.9, adult Z68.42 [facility] [id number] [place] [address] Jun, Vertigo R42 and BMI 45.0-49.9, adult Z68.42 [facility] [id number] [place] [phone] May, Dental caries K02.9 [facility] [id number] [place] [address] [phone] May, Encounter for dental exam and cleaning w/o abnormal findings Z01.20 [place] [address] [address] 07 Apr, 2017 Acute non-recurrent maxillary sinusitis J01.00 [place] [address] [address] 09 Mar, 2017 [facility] [place] [address], [place] [address] 11 Feb, 2017 Acute gout of right ankle, 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 [facility] [place] [id number] [place] [address] Feb, [facility] [address] [place] [address] [phone] Jan, Dental examination Z01.20 [facility] [address] [phone] Jan, Encounter for dental examination and cleaning without abnormal findings Z01.20 [facility] [id number] [place] [address] [phone] Jan, Dental examination Z01.20 [facility] [place] [id number] [place] [address] Jan, Acute non-recurrent frontal sinusitis J01.10 ; Essential hypertension I10 ; Mixed hyperlipidemia E78.2 ; Sore throat J02.9 and Gastroesophageal reflux disease without esophagitis K21.9 [facility] [id number] [place] [address] [phone] Dec, [facility] [id number] [place] [phone] Dec, Other secondary acute gout of multiple sites M10.49 and Acute upper respiratory infection, unspecified J06.9 [facility] [id number] [place] [address] [phone] Nov, Sore throat J02.9 ; Acute nasopharyngitis (common cold) J00 and Acute left-sided low back pain with left-sided sciatica M54.42 [facility] [id number] [place] [phone] October, Encounter for dental examination and cleaning without abnormal findings Z01.20 [facility] [address] [place] [address] 08638 [address] 02 May, 2017 Acute upper respiratory infection, unspecified J06.9 and Sore throat J02.9 [facility] [address] [place] [address] [phone] Sep, Encounter for dental examination and cleaning without abnormal findings Z01.20 [facility] [place] [id number] [place] [address] 21082- 67[address] Sep, Gastroesophageal reflux disease without esophagitis K21.9 [facility] [address] [address] Aug, Sore throat J02.9 and Acute idiopathic gout of right wrist M10.031 [facility] [address] [phone] Jul, Encounter for dental examination and cleaning without abnormal findings Z01.20 [facility] [place] [id number] [place] [address]62[address] Jun, [facility] [place] [address] [address] Jun, Lower abdominal pain R10.30 [facility] [id number] [place] [address] [phone] Jun, Encounter for dental examination and cleaning without abnormal findings Z01.20 [facility] [place] [id number] [place] [phone] May, Chronic kidney disease, unspecified stage N18.9 and Mouth ulcer K12.1 [facility] [place] [id number] [place] [address] 6[address]15[address] May, Chronic kidney disease, unspecified stage N18.9 [facility] [place] [id number] [place] [address] 87678- 90[address] May, Encounter for dental examination and cleaning without abnormal findings Z01.20 [facility] [place] [id number] [place] [address] 10404- 33[address] May, Encounter for dental examination and cleaning without abnormal findings Z01.20 [facility] [place] [address] [address] 16 May, 2016 Hypokalemia E87.6 ; Essential hypertension I10 ; Gastroesophageal reflux disease without esophagitis K21.9 and Right-sided thoracic back pain, unspecified chronicity M54.6 [facility] [place] [address] [address] 13 May, 2016 Oral candidiasis B37.[address] [address] May, [address] [address] May, Cracked tooth K03.81 and Retained dental root K08.[address] [address] May, Dental examination Z01.20 [facility] [address] [address] 28 Apr, 2016 Acute right flank pain R10.9 and Acute left lower quadrant pain R10.[address] [address] 08 Apr, [address] Bron[address]itis J40 [address] [address] 13 Mar, 2016 Dental examination Z01.[address] [address] 07 Mar, 2016 Dysthymic disorder F34.1 [facility] [address] [address] 05 Mar, 2016 Gingivitis K05.10 and Torticollis M43.6 [place] [address] [address] 08 Feb, 2016 Dysthymic disorder F34.1 [facility] [address] [address] Feb, Lymph nodes enlarged R59.9 [facility] [id number] [place] [address] Jan, Left otitis media, unspecified chronicity, unspecified otitis media type H66.92 [place] [id number] [place] [address] 66157- 12[address] 08 Jan, 2016 Dysthymic disorder F34.1 and Generalized anxiety disorder F41.1 [place] [address] [address] Dec, Dental examination Z01.20 [place] [address] [address] Dec, Dysthymic disorder F34.1 and Generalized anxiety disorder F41.1 [place] [address] [address] Dec, Gastroesophageal reflux disease without esophagitis K21.9 and Arthritis M19.90 [place] [address] [address] Dec, Dysthymic disorder F34.1 and Generalized anxiety disorder F41.1 [facility] [id number] [place] [address] Dec, Gingivitis K05.10 [place] [id number] [place] [address] 0[address]70- 06[address] Dec, Essential hypertension I10 ; Epigastric pain R10.13 ; Mixed hyperlipidemia E78.2 ; Proptosis H05.20 and Gastroesophageal reflux disease without esophagitis K21.9 [place] [id number] [place] [address] 53282- [address] Dec, [place] [address] [address] Nov, Dysthymic disorder F34.1 [facility] [address] [address] Nov, Epigastric pain R10.13 and Gastroesophageal reflux disease , esophagitis presence not specified K21.9 [place] [id number] [place] [phone] Nov, Depression, unspecified depression type F32.9 [place] [id number] [place] [address] 79869- [address] 24 Nov, 2015 Essential hypertension I10 ; Mixed hyperlipidemia E78.2 ; Proptosis H05.20 ; Gastroesophageal reflux disease without esophagitis K21.9 and Depression, unspecified depression type F32.9 [place] [id number] [place] [address] 55781- 4[address] Nov, [facility] [place] [address] [address] 21 Nov, 2015 Sore in mouth K13.79 [facility] [address] [address] 14 Nov, 2015 Left-sided chest wall pain R07.89 and Pain of right calf M79.661 [place] [id number] [place] [address] 68674- 5[address] 06 Nov, 2015 Gastroesophageal reflux disease, esophagitis presence not specified K21.9 and Environmental allergies Z91.09 [facility] [id number] [place] [phone] October, Dental examination Z01.20 IMMUNIZATIONS No Known Immunizations SOCIAL HISTORY Never Assessed REASON FOR VISIT fillings PLAN OF CARE Activity Details Follow Up prn Reason:fillings VITAL SIGNS Blood pressure systolic 125 mmHg 2017-02-12 Blood pressure diastolic 91 mmHg 2017-02-12 MEDICATIONS Medication Instructions Dosage Frequency Start Date End Date Duration Status Mens Multi Vitamin & Mineral Active Protonix 40 Orally Once a day 1 tablet 24h 30 Active Aripiprazole 5 MG Orally Once a day 1 tablet 24h Active Eye Health Formula 180-15-5 MG Active Uloric 80 MG Orally Once a day 1 tablet 24h Active Pravastatin Sodium 10 mg Orally Once a day 1 tablet 24h 30 days Active Potassium Chloride Mee ER 10 MEQ Orally Once a day 2 tablets with food 24h 7 Feb, 2018 30 days Active Lisinopril 10 mg Orally Once a day 1 tablet 24h 30 days Active RESULTS No Results PROCEDURES Procedure Date Ordered Result Body Site RESIN COMPOS - 1 SURFACE POSTERIOR Feb 12, 2017 RESIN COMPOS - 1 SURFACE POSTERIOR Feb 12, 2017 Billing Notes on claim Feb 12, 2017 INSTRUCTIONS MEDICATIONS ADMINISTERED No Known Medications [...]
--- OUTSIDE RECORDS SUMMARY | 2017-11-21 17:39 | XMS REPORT ---
Author Author ADINA ZAMBRANO Organization [facility] Address [address] [place] [address] Phone Unavailable Care Team Providers Care Front Desk Monitor Name Role Phone ADINA ZAMBRANO Unavailable Unavailable PROBLEMS Type Condition ICD9-CM Code [id number] Code Onset Dates Condition Status SNOMED Code Problem Gastroesophageal reflux disease without esophagitis K21.9 Active 979837594 Assessment Dental examination Z01.20 May, Active 14616055 Problem Gingivitis K05.10 Active 71267667 Problem Arthritis M19.90 Active 6004018 Problem Mixed hyperlipidemia E78.2 Active 248580614 Problem Essential hypertension I10 Active 02311459 Problem Generalized anxiety disorder F41.1 Active 06379984 Problem Dysthymic disorder F34.1 Active 03338949 ALLERGIES Substance Reaction Event Type Date Status Penicillin V Potassium Unknown Drug Allergy May, Active SOCIAL HISTORY No smoking Hx information available PLAN OF CARE VITAL SIGNS MEDICATIONS Medication Instructions Dosage Frequency Start Date End Date Duration Status Vitamin B-6 100 MG Orally Once a day 1 tablet 24h Active Pravastatin Sodium 10 MG Orally Once a day 1 tablet 24h Active Vitamin C 500 MG Active Mens Multi Vitamin & Mineral Active Metronidazole 500 MG Orally every 8 hrs 1 tablet 8h Apr, May, 10 day(s) Active Magnesium 250 MG Orally Once a day 1 tablet with a meal 24h Active Lisinopril 10 MG Orally Once a day 1 tablet 24h Active Colchicine 0.6 MG Orally Once a day 1 tablet 24h Active Potassium Chloride Mee ER 10 MEQ Orally Once a day 1 tablet with food 24h Active Aloe Vera Concentrate 25 MG Active Ciprofloxacin HCl 500 MG Orally Twice a day 1 tablet 12h Apr, May, 10 day(s) Active Protonix 40 mg Orally Once a day 1 tablet 24h Nov, 30 day(s) Active RESULTS No Results PROCEDURES Procedure Date Ordered Related Diagnosis Body Site Periodontal scaling and root May 23, 2016 Periodontal scaling and root May 23, 2016 Billing Notes on claim May 23, 2016 IMMUNIZATIONS No Known Immunizations
--- OUTSIDE RECORDS SUMMARY | 2017-11-21 17:39 | XMS REPORT ---
Author Author EDGARDO BATES [facility] Address [address] [place] [address] Care Team Providers Care Fire Officer Name Role Phone EDGARDO BATES Unavailable PROBLEMS Type Condition ICD9-CM Code [id number] Code Onset Dates Condition Status SNOMED Code Problem Gastroesophageal reflux disease without esophagitis K21.9 Active 537012514 Problem Mixed hyperlipidemia E78.2 Active 585337238 Problem Essential hypertension I10 Active 34235705 Problem Acute left-sided low back pain with left-sided sciatica M54.42 Active 826768632 Problem Chronic kidney disease, unspecified stage N18.9 Active 151777118 Problem Generalized anxiety disorder F41.1 Active 55256124 Problem Dysthymic disorder F34.1 Active 47159896 Problem Gingivitis K05.10 Active 02465857 Problem Arthritis M19.90 Active 9839778 ALLERGIES Substance Reaction Event Type Date Status Penicillin V Potassium Unknown Drug Allergy May, Active SOCIAL HISTORY No smoking Hx information available PLAN OF CARE Activity Details Follow Up prn Reason: VITAL SIGNS Height 70 in 2016-06-14 Weight 302.7 lbs 2016-06-14 Temperature 99.4 degrees Fahrenheit 2016-06-14 Heart Rate 92 bpm 2016-06-14 Respiratory Rate 20 2016-06-14 BMI 43.43 kg/m2 2016-06-14 Blood pressure systolic 128 mmHg 2016-06-14 Blood pressure diastolic 76 mmHg 2016-06-14 MEDICATIONS Medication Instructions Dosage Frequency Start Date End Date Duration Status Peridex 0.12 % Mouth/Throat twice daily as directed May,Jun 31 days Active Protonix 40 Orally Once a day 1 tablet 24h 30 Active Vitamin B-6 100 MG Orally Once a day 1 tablet 24h Active Vitamin C 500 MG Active Potassium Chloride Mee ER 10 MEQ Orally Once a day 2 tablets with food 24h Active Lisinopril 10 MG Orally Once a day 1 tablet 24h Active Nystatin 346308 UNIT/ML Mouth/Throat Four times a day 5 ml 6h May, Jun, 30 day(s) Active Vitamin D3 1000 UNIT Orally Once a day 1 capsule 24h Active Colchicine 0.6 MG Orally Once a day 1 tablet 24h Active Magnesium 250 MG Orally Once a day 1 tablet with a meal 24h Active Pravastatin Sodium 10 MG Orally Once a day 1 tablet 24h Active Uloric 80 MG Orally Once a day 1 tablet 24h Active Mens Multi Vitamin & Mineral Active RESULTS No Results PROCEDURES Procedure Date Ordered Related Diagnosis Body Site [facility] VISIT ESTABLISHED PATIENT Jun 14, 2016 Office Visit, Est Pt., Level 2 Jun 14, 2016 IMMUNIZATIONS No Known Immunizations
--- OUTSIDE RECORDS SUMMARY | 2017-11-21 17:39 | XMS REPORT ---
Author Author ISABEL MORA Organization [facility] Address [address] [place] [address] Care Team Providers Care Senior Quality Assurance Engineer Name Role Phone ISABEL MORA Unavailable PROBLEMS Type Condition ICD9-CM Code [id number] Code Onset Dates Condition Status SNOMED Code Problem Gastroesophageal reflux disease without esophagitis K21.9 Active 106273292 Assessment Oral candidiasis B37.0 May, Active 83794769 Problem Gingivitis K05.10 Active 26340434 Problem Arthritis M19.90 Active 8967425 Problem Mixed hyperlipidemia E78.2 Active 897837554 Problem Essential hypertension I10 Active 48112894 Problem Generalized anxiety disorder F41.1 Active 50305132 Problem Dysthymic disorder F34.1 Active 29697725 ALLERGIES Substance Reaction Event Type Date Status Penicillin V Potassium Unknown Drug Allergy May, Active SOCIAL HISTORY No smoking Hx information available PLAN OF CARE VITAL SIGNS Height 70 in 2016-06-04 Weight 302.0 lbs 2016-06-04 Heart Rate 96 bpm 2016-06-04 Respiratory Rate 22 2016-06-04 BMI 43.33 kg/m2 2016-06-04 Blood pressure systolic 124 mmHg 2016-06-04 Blood pressure diastolic 82 mmHg 2016-06-04 MEDICATIONS Medication Instructions Dosage Frequency Start Date End Date Duration Status Pravastatin Sodium 10 MG Orally Once a day 1 tablet 24h Active Magnesium 250 MG Orally Once a day 1 tablet with a meal 24h Active Protonix 40 Orally Once a day 1 tablet 24h 30 Active Allopurinol 300 MG Orally Once a day 1.5 tablet 24h Active Vitamin C 500 MG Active Nystatin 002208 UNIT/ML Mouth/Throat Four times a day 5 ml 6h May, Jun, 30 day(s) Active Vitamin B-6 100 MG Orally Once a day 1 tablet 24h Active Mens Multi Vitamin & Mineral Active Aloe Vera Concentrate 25 MG Active Lisinopril 10 MG Orally Once a day 1 tablet 24h Active Colchicine 0.6 MG Orally Once a day 1 tablet 24h Active Vitamin D3 1000 UNIT Orally Once a day 1 capsule 24h Active RESULTS No Results PROCEDURES Procedure Date Ordered Related Diagnosis Body Site [facility] VISIT ESTABLISHED PATIENT Jun 04, 2016 Office Visit, Est Pt., Level 3 Jun 04, 2016 IMMUNIZATIONS No Known Immunizations
--- OUTSIDE RECORDS SUMMARY | 2017-11-21 17:39 | XMS REPORT ---
Author Author YVONNE SALAS [facility] Address [address] [place] [address] Care Team Providers Care Wrapper Stitcher Name Role Phone YVONNE SALAS Unavailable PROBLEMS Type Condition ICD9-CM Code VRL47-QO Code Onset Dates Condition Status SNOMED Code Assessment Lymph nodes enlarged R59.9 Feb, Active 86528922 Problem Arthritis M19.90 Active 6200791 Problem Generalized anxiety disorder F41.1 Active 93357750 Problem Essential hypertension I10 Active 73505843 Problem Gastroesophageal reflux disease without esophagitis K21.9 Active 924347112 Problem Dysthymic disorder F34.1 Active 56735575 Problem Mixed hyperlipidemia E78.2 Active 255112408 ALLERGIES Substance Reaction Event Type Date Status Penicillin V Potassium Unknown Drug Allergy Feb, Active SOCIAL HISTORY No smoking Hx information available PLAN OF CARE VITAL SIGNS Height 70 in 2016-02-28 Weight 309.4 lbs 2016-02-28 Heart Rate 90 bpm 2016-02-28 Respiratory Rate 18 2016-02-28 BMI 44.39 kg/m2 2016-02-28 Blood pressure systolic 152 mmHg 2016-02-28 Blood pressure diastolic 96 mmHg 2016-02-28 MEDICATIONS Medication Instructions Dosage Frequency Start Date End Date Duration Status Vitamin D3 1000 UNIT Orally Once a day 1 capsule 24h Active Colchicine 0.6 MG Orally Once a day 1 tablet 24h Active Vitamin B-6 100 MG Orally Once a day 1 tablet 24h Active Mens Multi Vitamin & Mineral Active Potassium Chloride Mee ER 10 MEQ Orally Once a day 1 tablet with food 24h Active Clindamycin HCl 150 MG Orally every 6 hrs 2 capsules 6h Feb, Feb, 10 days Active Protonix 40 Orally Once a day 1 tablet 24h 30 Active Vitamin C 500 MG Active Allopurinol 300 MG Orally Once a day 1.5 tablet 24h Active Pravastatin Sodium 10 MG Orally Once a day 1 tablet 24h Active Magnesium 250 MG Orally Once a day 1 tablet with a meal 24h Active Lisinopril 10 MG Orally Once a day 1 tablet 24h Active Flonase 50 MCG/ACT Nasally Once a day 1 spray in each nostril 24h Active Protonix 40 mg Orally Once a day 1 tablet 24h Nov, 30 day(s) Active Acidophilus Active Aloe Vera Concentrate 25 MG Active RESULTS No Results PROCEDURES Procedure Date Ordered Related Diagnosis Body Site [facility] VISIT ESTABLISHED PATIENT Feb 28, 2016 Office Visit, Est Pt., Level 3 Feb 28, 2016 IMMUNIZATIONS No Known Immunizations
--- OUTSIDE RECORDS SUMMARY | 2017-11-21 17:40 | XMS REPORT ---
Author Author ADINA ZAMBRANO [facility] Address [address] [place] [address] Phone Unavailable Care Team Providers Care Rn Gastroenterology Name Role Phone ADINA ZAMBRANO Unavailable Unavailable PROBLEMS Type Condition ICD9-CM Code EJD35-TR Code Onset Dates Condition Status SNOMED Code Problem Dysthymic disorder F34.1 Active 39574507 Problem Arthritis M19.90 Active 3375316 Problem Generalized anxiety disorder F41.1 Active 41813672 Problem Gastroesophageal reflux disease without esophagitis K21.9 Active 089126607 Problem Essential hypertension I10 Active 40018137 Problem Mixed hyperlipidemia E78.2 Active 824939579 Problem Vertigo R42 Active 770868454 Problem Type 2 diabetes mellitus without complication, without long-term current use of insulin E11.9 Active 936754246 Problem Acute left-sided low back pain with left-sided sciatica M54.42 Active 942902058 Problem Gingivitis K05.10 Active 24499126 Problem Exophthalmia H05.20 Active 90612037 Problem Acute gout of right ankle, 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 Active 332981046 ALLERGIES Substance Reaction Event Type Date Status Penicillin V Potassium Unknown Drug Allergy Jan, Active ENCOUNTERS Encounter Location Date Diagnosis [facility] [address] [id number] [address] Dec, [facility] [address] [id number] [id number] Sep, [facility] [address], [place] [address] Sep, [facility] [address], [place] [address] Aug, Dental examination Z01.20 [facility] [id number], [place] [address] Aug, [facility] [id number] [place] [address] Aug, [facility] [address] [address] 14 Aug, 2017 Aphthous stomatitis K12.0 and BMI 45.0-49.9, adult Z68.42 [facility] [address] [address] 05 Aug, 2017 [place] [address] [address] 05 Aug, 2017 Vertigo R42 ; Impacted cerumen of both ears H61.23 ; Abnormal RBC indices R71.8 ; Exophthalmia H05.20 ; Elevated glucose R73.09 ; Type 2 diabetes mellitus without complication, without long-term current use of insulin E11.9 and BMI 45.0-49.9, adult Z68.42 [facility] [address] [address] 19 Jul, 2017 Dizziness R42 and BMI 45.0-49.9, adult Z68.42 [facility] [address] [address] Jun, Vertigo R42 and BMI 45.0-49.9, adult Z68.42 [facility] [address] [id number] May, Dental caries K02.9 [facility] [address] [id number] May, Encounter for dental exam and cleaning w/o abnormal findings Z01.20 [place] [address] [address] 07 Apr, 2017 Acute non-recurrent maxillary sinusitis J01.00 [place] [address] [address] 09 Mar, 2017 [place] [address] [address] Feb, Acute gout of right ankle, 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 [facility] [address] [place] [address] 11 Feb, 2017 [facility] [id number] [place] [phone] Jan, Dental examination Z01.20 [facility] [id number] [place] [phone] Jan, Encounter for dental examination and cleaning without abnormal findings Z01.20 [facility] [id number] [place] [address] [id number] Jan, Dental examination Z01.20 [facility] [id number] [place] [address] Jan, Acute non-recurrent frontal sinusitis J01.10 ; Essential hypertension I10 ; Mixed hyperlipidemia E78.2 ; Sore throat J02.9 and Gastroesophageal reflux disease without esophagitis K21.9 [facility] [id number] [place] [phone] Dec, [facility] [id number] [place] [address] Dec, Other secondary acute gout of multiple sites M10.49 and Acute upper respiratory infection, unspecified J06.9 [facility] [id number] [place] [address] Nov, Sore throat J02.9 ; Acute nasopharyngitis (common cold) J00 and Acute left-sided low back pain with left-sided sciatica M54.42 [facility] [address] [place] [phone] October, Encounter for dental examination and cleaning without abnormal findings Z01.20 [facility] [address] [place] [address] October, Acute upper respiratory infection, unspecified J06.9 and Sore throat J02.9 [facility] [id number] [place] [phone] Sep, Encounter for dental examination and cleaning without abnormal findings Z01.20 [facility] [address] [address] Sep, Gastroesophageal reflux disease without esophagitis K21.9 [facility] [id number] [place] [address] Aug, Sore throat J02.9 and Acute idiopathic gout of right wrist M10.031 [facility] [address] [id number] Jul, Encounter for dental examination and cleaning without abnormal findings Z01.20 [facility] [id number] [place] [phone] Jun, [facility] [address] [address] Jun, Lower abdominal pain R10.30 [facility] [id number] [place] [phone] Jun, Encounter for dental examination and cleaning without abnormal findings Z01.20 [facility] [id number] [place] [address] May, Chronic kidney disease, unspecified stage N18.9 and Mouth ulcer K12.1 [place] [id number] [place] [address] May, Chronic kidney disease, unspecified stage N18.9 [facility] [id number] [place] [address] May, Encounter for dental examination and cleaning without abnormal findings Z01.20 [facility] [id number] [place] [address] May, Encounter for dental examination and cleaning without abnormal findings Z01.20 [facility] [id number] [place] [address] May, Hypokalemia E87.6 ; Essential hypertension I10 ; Gastroesophageal reflux disease without esophagitis K21.9 and Right-sided thoracic back pain, unspecified chronicity M54.6 [facility] [place] [address] [address] May, Oral candidiasis B37.0 [place] [address] [address] May, [place] [address] [address] May, Cracked tooth K03.81 and Retained dental root K08.3 [place] [address] [address] May, Dental examination Z01.20 [facility] [place] [address] [address] Apr, Acute right flank pain R10.9 and Acute left lower quadrant pain R10.32 [place] [address] [address] 08 Apr, 2016 Bronchitis J40 [place] [address] [address] Mar, Dental examination Z01.20 [place] [address] [address] Mar, Dysthymic disorder F34.1 [facility] [place] [address] [address] 05 Mar, 2016 Gingivitis K05.10 and Torticollis M43.6 [place] [address] [address] 08 Feb, 2016 Dysthymic disorder F34.1 [facility] [place] [address] [address] 07 Feb, 2016 Lymph nodes enlarged R59.9 [facility] [place] [address] [place] [address] Jan, Left otitis media, unspecified chronicity, unspecified otitis media type H66.92 [place] [address] [address] 08 Jan, 2016 Dysthymic disorder F34.1 and Generalized anxiety disorder F41.1 [place] [address] [address] Dec, Dental examination Z01.20 [place] [address] [address] Dec, Dysthymic disorder F34.1 and Generalized anxiety disorder F41.1 [place] [address] [address] Dec, Gastroesophageal reflux disease without esophagitis K21.9 and Arthritis M19.90 [place] [address] [address] Dec, Dysthymic disorder F34.1 and Generalized anxiety disorder F41.1 [facility] [address] [address] Dec, Gingivitis K05.10 [place] [address] [address] Dec, Essential hypertension I10 ; Epigastric pain R10.13 ; Mixed hyperlipidemia E78.2 ; Proptosis H05.20 and Gastroesophageal reflux disease without esophagitis K21.9 [place] [id number] [place] [address] Dec, [place] [address] [address] Nov, Dysthymic disorder F34.1 [facility] [id number] [place] [address] Nov, Epigastric pain R10.13 and Gastroesophageal reflux disease , esophagitis presence not specified K21.9 [facility] [address], [place] [address] 24 Nov, 2015 Depression, unspecified depression type F32.9 [place] [address] [place] [address] 24 Nov, 2015 Essential hypertension I10 ; Mixed hyperlipidemia E78.2 ; Proptosis H05.20 ; Gastroesophageal reflux disease without esophagitis K21.9 and Depression, unspecified depression type F32.9 [place] [id number] [place] [address] 22 Nov, 2015 [facility] [place] [id number] [place] [address] 21 Nov, 2015 Sore in mouth K13.79 [facility] [place] [id number] [place] [address] 14 Nov, 2015 Left-sided chest wall pain R07.89 and Pain of right calf M79.661 [place] [address] [place] [address] 06 Nov, 2015 Gastroesophageal reflux disease, esophagitis presence not specified K21.9 and Environmental allergies Z91.09 [facility] [address] [place] [phone] 18 Oct, 2015 Dental examination Z01.20 IMMUNIZATIONS No Known Immunizations SOCIAL HISTORY Never Assessed REASON FOR VISIT ADULT PROPHY PLAN OF CARE Activity Details Follow Up PATIENT HAS APPTS Reason:RESTORATIVE/RECALL VITAL SIGNS MEDICATIONS Medication Instructions Dosage Frequency Start Date End Date Duration Status Lisinopril 10 mg Orally Once a day 1 tablet 24h 30 days Active Aripiprazole 5 MG Orally Once a day 1 tablet 24h Active Eye Health Formula 180-15-5 MG Active Pravastatin Sodium 10 mg Orally Once a day 1 tablet 24h 30 days Active Uloric 80 MG Orally Once a day 1 tablet 24h Active Mens Multi Vitamin & Mineral Active Protonix 40 Orally Once a day 1 tablet 24h 30 Active Potassium Chloride Mee ER 10 MEQ Orally Once a day 2 tablets with food 24h 7 Jul, 2017 30 days Active RESULTS No Results PROCEDURES Procedure Date Ordered Result Body Site PROPHYLAXIS - ADULT Feb 12, 2017 INSTRUCTIONS MEDICATIONS ADMINISTERED No [...]
--- OUTSIDE RECORDS SUMMARY | 2017-11-21 17:40 | XMS REPORT ---
Author Author EDGARDO BATES [facility] Address [address] [place] [address] Care Team Providers Care Instructional Technology Specialist Name Role Phone EDGARDO BATES Unavailable PROBLEMS Type Condition ICD9-CM Code VCQ21-TE Code Onset Dates Condition Status SNOMED Code Problem Gastroesophageal reflux disease without esophagitis K21.9 Active 537318095 Problem Mixed hyperlipidemia E78.2 Active 839680814 Problem Essential hypertension I10 Active 84310686 Problem Acute left-sided low back pain with left-sided sciatica M54.42 Active 400846758 Problem Chronic kidney disease, unspecified stage N18.9 Active 521082433 Problem Generalized anxiety disorder F41.1 Active 76964324 Problem Dysthymic disorder F34.1 Active 67718626 Problem Gingivitis K05.10 Active 84385355 Problem Arthritis M19.90 Active 0353537 ALLERGIES Unknown Allergies SOCIAL HISTORY No smoking Hx information available PLAN OF CARE VITAL SIGNS MEDICATIONS Unknown Medications RESULTS No Results PROCEDURES No Known procedures IMMUNIZATIONS No Known Immunizations
--- OUTSIDE RECORDS SUMMARY | 2017-11-21 17:40 | XMS REPORT ---
Author Author JUAN MAGUIRE Organization [facility] Address [address] [place] [address] Care Team Providers Care Pinion Sorter Name Role Phone JUAN MAGUIRE Unavailable PROBLEMS Type Condition ICD9-CM Code [id number]-KC Code Onset Dates Condition Status SNOMED Code Assessment Dysthymic disorder F34.1 Feb, Active 16001092 Problem Arthritis M19.90 Active 3534562 Problem Generalized anxiety disorder F41.1 Active 74511623 Problem Essential hypertension I10 Active 14181486 Problem Gastroesophageal reflux disease without esophagitis K21.9 Active 703329001 Problem Dysthymic disorder F34.1 Active 64717683 Problem Mixed hyperlipidemia E78.2 Active 003402577 ALLERGIES Unknown Allergies SOCIAL HISTORY No smoking Hx information available PLAN OF CARE VITAL SIGNS MEDICATIONS Unknown Medications RESULTS No Results PROCEDURES Procedure Date Ordered Related Diagnosis Body Site [facility] VISIT MENTAL HEALTH ESTAB PT Feb 29, 2016 Psychotherapy, patient &/family, 30 minutes, established patient Feb 29, 2016 IMMUNIZATIONS No Known Immunizations
--- OUTSIDE RECORDS SUMMARY | 2017-11-21 17:40 | XMS REPORT ---
Author JUAN Sharma Organization [employer] Address Unknown Phone Unavailable Care Team Providers Care Graphic User Interface Designer Name Role Phone JUAN MAGUIRE CP Unavailable Allergies No Known Allergies Problems Problem Type Condition Code Onset Dates Condition Status Assessment Dysthymic disorder F34.1 Active Problem Arthritis M19.90 Active Problem Generalized anxiety disorder F41.1 Active Problem Gingivitis K05.10 Active Problem Essential hypertension I10 Active Problem Gastroesophageal reflux disease without esophagitis K21.9 Active Problem Dysthymic disorder F34.1 Active Problem Mixed hyperlipidemia E78.2 Active Medications No Known Medications Procedures Procedure Coding System Code Date Psychotherapy, patient &/family, 30 minutes, established patient CPT-4 16463 Mar 29, 2016 [facility] VISIT MENTAL HEALTH ESTAB PT CPT-4 G0470 Mar 29, 2016 Results No Known Results Summary Purpose [employer] Submission
--- OUTSIDE RECORDS SUMMARY | 2017-11-21 17:40 | XMS REPORT ---
Author Author ADINA ZAMBRANO Organization [facility] Address [address] [place] [address] Phone Unavailable Care Team Providers Care Doweler Name Role Phone ADINA ZAMBRANO Unavailable Unavailable PROBLEMS Type Condition ICD9-CM Code [id number]-OU Code Onset Dates Condition Status SNOMED Code Problem Gastroesophageal reflux disease without esophagitis K21.9 Active 926523222 Problem Mixed hyperlipidemia E78.2 Active 474833270 Problem Essential hypertension I10 Active 85179086 Problem Acute left-sided low back pain with left-sided sciatica M54.42 Active 242311978 Problem Chronic kidney disease, unspecified stage N18.9 Active 017610443 Problem Generalized anxiety disorder F41.1 Active 22841085 Problem Dysthymic disorder F34.1 Active 72535005 Problem Gingivitis K05.10 Active 44756565 Problem Arthritis M19.90 Active 3206812 ALLERGIES Substance Reaction Event Type Date Status Penicillin V Potassium Unknown Drug Allergy May, Active SOCIAL HISTORY No smoking Hx information available PLAN OF CARE Activity Details Follow Up APPT MADE Reason:SENAIT WITH DR MOON VITAL SIGNS MEDICATIONS Unknown Medications RESULTS No Results PROCEDURES Procedure Date Ordered Related Diagnosis Body Site SCREENING OF A PATIENT Jun 11, 2016 IMMUNIZATIONS No Known Immunizations
--- OUTSIDE RECORDS SUMMARY | 2017-11-21 17:40 | XMS REPORT ---
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 Active 025670756 Problem Acute left-sided low back pain with left-sided sciatica M54.42 Active 947096524 Problem Arthritis M19.90 Active 5344798 Problem Generalized anxiety disorder F41.1 Active 91243930 Problem Chronic kidney disease, unspecified stage N18.9 Active 066298375 Problem Gingivitis K05.10 Active 90256684 ALLERGIES Substance Reaction Event Type Date Status Penicillin V Potassium Unknown Drug Allergy Jun, Active SOCIAL HISTORY No smoking Hx information available PLAN OF CARE Activity Details Follow Up prn Reason: VITAL SIGNS Height 70 in 2016-07-22 Weight 300 lbs 2016-07-22 Temperature 98.3 degrees Fahrenheit 2016-07-22 Heart Rate 80 bpm 2016-07-22 Respiratory Rate 20 2016-07-22 BMI 43.04 kg/m2 2016-07-22 Blood pressure systolic 128 mmHg 2016-07-22 Blood pressure diastolic 80 mmHg 2016-07-22 MEDICATIONS Medication Instructions Dosage Frequency Start Date End Date Duration Status Pravastatin Sodium 10 MG Orally Once a day 1 tablet 24h Active Mens Multi Vitamin & Mineral Active Uloric 80 MG Orally Once a day 1 tablet 24h Active Potassium Chloride Mee ER 10 MEQ Orally Once a day 2 tablets with food 24h Active Vitamin B-6 100 MG Orally Once a day 1 tablet 24h Active Protonix 40 Orally Once a day 1 tablet 24h 30 Active Lisinopril 10 MG Orally Once a day 1 tablet 24h Active Vitamin C 500 MG Active Vitamin D3 1000 UNIT Orally Once a day 1 capsule 24h Active Flonase 50 MCG/ACT Nasally Once a day 1 spray in each nostril 24h Active Magnesium 250 MG Orally Once a day 1 tablet with a meal 24h Active Colchicine 0.6 MG Orally Once a day 1 tablet 24h Active Aloe Vera Concentrate 25 MG Active RESULTS Name Result Date Reference Range CMP 2016-07-22 Glucose, Serum 99 65-99 BUN 13 6-24 Creatinine, Serum 1.30 0.76-1.27 eGFR If NonAfricn Am 65 >59 eGFR If Africn Am 75 >59 BUN/Creatinine Ratio 10 9-20 Sodium, Serum 141 134-144 Potassium, Serum 3.8 3.5-5.2 Chloride, Serum 95 96-106 Carbon Dioxide, Total 25 18-29 Calcium, Serum 10.3 8.7-10.2 Protein, Total, Serum 7.4 6.0-8.5 Albumin, Serum 4.2 3.5-5.5 Globulin, Total 3.2 1.5-4.5 A/G Ratio 1.3 1.1-2.5 Bilirubin, Total 0.8 0.0-1.2 Alkaline Phosphatase, S 89 39-117 AST (SGOT) 19 0-40 ALT (SGPT) 19 0-44 CBC 2016-07-22 WBC 8.6 3.4-10.8 RBC 5.12 4.14-5.80 Hemoglobin 12.7 12.6-17.7 Hematocrit 38.8 37.5-51.0 MCV 76 79-97 MCH 24.8 26.6-33.0 MCHC 32.7 31.5-35.7 RDW 14.7 12.3-15.4 Platelets 384 150-379 Neutrophils 68 Lymphs 25 Monocytes 6 Eos 1 Basos 0 Neutrophils (Absolute) 5.8 1.4-7.0 Lymphs (Absolute) 2.2 0.7-3.1 Monocytes(Absolute) 0.5 0.1-0.9 Eos (Absolute) 0.0 0.0-0.4 Baso (Absolute) 0.0 0.0-0.2 Immature Granulocytes 0 Immature Grans (Abs) 0.0 0.0-0.1 PROCEDURES Procedure Date Ordered Related Diagnosis Body Site LAB NOT BILLED BY [facility] Jul 22, 2016 VENIPUNCT, ROUTINE* Jul 22, 2016 Office Visit, Est Pt., Level 3 Jul 22, 2016 [facility] VISIT ESTABLISHED PATIENT Jul 22, 2016 IMMUNIZATIONS No Known Immunizations
--- OUTSIDE RECORDS SUMMARY | 2017-11-21 17:40 | XMS REPORT ---
Author Author JUAN MAGUIRE Organization [employer] Address Unknown Phone Unavailable Care Team Providers Care Math Teacher Name Role Phone JUAN MAGUIRE CP Unavailable Allergies No Known Allergies Problems Problem Type Condition Code Onset Dates Condition Status Assessment Generalized anxiety disorder F41.1 Active Problem Generalized anxiety disorder F41.1 Active Problem Dysthymic disorder F34.1 Active Problem Arthritis M19.90 Active Problem Gastroesophageal reflux disease without esophagitis K21.9 Active Assessment Dysthymic disorder F34.1 Active Problem Mixed hyperlipidemia E78.2 Active Problem Essential hypertension I10 Active Medications No Known Medications Procedures Procedure Coding System Code Date Psychotherapy, patient &/family, 30 minutes, established patient CPT-4 71326 January 11, 2016 COUNTS INCLUDE 234 BEDS AT [facility] VISIT MENTAL HEALTH ESTAB PT CPT-4 G0470 January 11, 2016 Results No Known Results Summary Purpose [employer] Submission
--- OUTSIDE RECORDS SUMMARY | 2017-11-21 17:40 | XMS REPORT ---
Author JOHN Walters [facility] eClinicalWorks Address Unknown Phone Unavailable Care Team Providers Care Quality Control Tester Name Role Phone JOHN LORENZO CP Unavailable Allergies, Adverse Reactions, Alerts Substance Reaction Event Type Penicillin V Potassium Info Not Available Drug Allergy Problems Problem Type Condition Code Onset Dates Condition Status Problem Generalized anxiety disorder F41.1 Active Problem Dysthymic disorder F34.1 Active Problem Arthritis M19.90 Active Problem Gastroesophageal reflux disease without esophagitis K21.9 Active Assessment Left otitis media, unspecified chronicity, unspecified otitis media type H66.92 Active Problem Mixed hyperlipidemia E78.2 Active Problem Essential hypertension I10 Active Medications Medication Code System Code Instructions Start Date End Date Status Dosage Acidophilus [facility] 46[address] Orally not defined Vitamin D3 [facility] 539[address] 1000 UNIT Orally Once a day 1 capsule Potassium Chloride Mee ER [facility] [address]-95 10 MEQ Orally Once a day 1 tablet with food Vitamin B-6 [facility] [address]-45 100 MG Orally Once a day 1 tablet Naproxen [facility] [address]-71 500 MG Orally every 12 hrs 1 tablet as needed Zithromax Z-Murtaza [facility] [address]-54 250 MG Orally Once a day Feb 10, 2016 Feb 15, 2016 2 tablets on the first day, then 1 tablet daily for 4 days Protonix [facility] [address]-27 40 mg Orally Once a day November 27, 2015 1 tablet Colchicine [facility] [address]-62 0.6 MG Orally Once a day 1 tablet Pravastatin Sodium [facility] [address]-05 10 MG Orally Once a day 1 tablet Allopurinol [facility] [address]-36 300 MG Orally Once a day 1.5 tablet Magnesium [facility] [address]-05 250 MG Orally Once a day 1 tablet with a meal Aloe Vera Concentrate [facility] [address]79-[address]40 25 MG Orally not defined Lisinopril [facility] [address]-44 10 MG Orally Once a day 1 tablet Protonix [facility] 22108988268 40 Orally Once a day 1 tablet Mens Multi Vitamin & Mineral [facility] 298[address] Orally not defined Flonase [facility] [address]-76 50 MCG/ACT Nasally Once a day 1 spray in each nostril Vitamin C [facility] [address]38 500 MG Orally not defined Procedures Procedure Coding System Code Date Office Visit, Est Pt., Level 3 CPT-4 00837 Feb 10, 2016 [facility] VISIT ESTABLISHED PATIENT CPT-4 G0467 Feb 10, 2016 Vital Signs Date/Time: Feb 10, 2016 Cardiac Monitoring Heart Rate 92 bpm Weight 306.2 lbs Height 70 in BMI 43.93 Index Blood Pressure Diastolic 84 mmHg Blood Pressure Systolic 126 mmHg Results No Known Results Summary Purpose eClinicalWorks Submission
--- OUTSIDE RECORDS SUMMARY | 2017-11-21 17:41 | XMS REPORT ---
Author EDGARDO Starks [facility] eClinicalWorks Address Unknown Phone Unavailable Care Team Providers Care Morphologist Name Role Phone EDGARDO BATES CP Unavailable Allergies, Adverse Reactions, Alerts Substance Reaction Event Type Penicillin V Potassium Info Not Available Drug Allergy Problems Problem Type Condition Code Onset Dates Condition Status Assessment Bronchitis J40 Active Problem Arthritis M19.90 Active Problem Generalized anxiety disorder F41.1 Active Problem Gingivitis K05.10 Active Problem Essential hypertension I10 Active Problem Gastroesophageal reflux disease without esophagitis K21.9 Active Problem Dysthymic disorder F34.1 Active Problem Mixed hyperlipidemia E78.2 Active Medications Medication Code System Code Instructions Start Date End Date Status Dosage Zithromax [facility] [address]-92 250 MG Orally Once a day Apr 30, 2016 May 05, 2016 2 tablets on the first day, then 1 tablet daily for 4 days Mens Multi Vitamin & Mineral [facility] 84[address]23 Orally not defined Aloe Vera Concentrate [facility] [address]01 25 MG Orally not defined Pravastatin Sodium [facility] [address]-42 10 MG Orally Once a day 1 tablet Naproxen [facility] [address]-19 500 MG Orally every 12 hrs 1 tablet as needed Vitamin B-6 [facility] [address]-49 100 MG Orally Once a day 1 tablet PredniSONE [facility] [address]-77 20 mg Orally Once a day Apr 30, 2016 May 05, 2016 2 tablet Allopurinol [facility] [address]-94 300 MG Orally Once a day 1.5 tablet Protonix [facility] [address]-84 40 mg Orally Once a day November 27, 2015 1 tablet Potassium Chloride Mee ER [facility] [address]-55 10 MEQ Orally Once a day 1 tablet with food Magnesium [facility] [address]-10 250 MG Orally Once a day 1 tablet with a meal Colchicine [facility] [address]-07 0.6 MG Orally Once a day 1 tablet Lisinopril [facility] [address]-95 10 MG Orally Once a day 1 tablet Vitamin C [facility] [address]66-[address]120 500 MG Orally not defined Procedures Procedure Coding System Code Date [facility] VISIT ESTABLISHED PATIENT CPT-4 G0467 Apr 30, 2016 Office Visit, Est Pt., Level 2 CPT-4 95212 Apr 30, 2016 MEASURE BLOOD OXYGEN LEVEL CPT-4 53883 Apr 30, 2016 Vital Signs Date/Time: Apr 30, 2016 Cardiac Monitoring Heart Rate 108 bpm Weight 303 lbs Height 70 in BMI 43.47 Index Oximetry on room air:98 % Blood Pressure Diastolic 88 mmHg Blood Pressure Systolic 132 mmHg Results No Known Results Summary Purpose eClinicalWorks Submission
--- OUTSIDE RECORDS SUMMARY | 2017-11-21 17:41 | XMS REPORT ---
Author JUAN Sharma Organization eClinicalWorks Address Unknown Phone Unavailable Care Team Providers Care Gis Professor Name Role Phone JUAN MAGUIRE CP Unavailable Allergies No Known Allergies Problems Problem Type Condition Code Onset Dates Condition Status Problem Dysthymic disorder F34.1 Active Problem Mixed hyperlipidemia E78.2 Active Problem Generalized anxiety disorder F41.1 Active Assessment Dysthymic disorder F34.1 Active Assessment Generalized anxiety disorder F41.1 Active Problem Essential hypertension I10 Active Problem Gastroesophageal reflux disease without esophagitis K21.9 Active Medications No Known Medications Procedures Procedure Coding System Code Date Psychotherapy, patient &/family, 30 minutes, established patient CPT-4 30205 January 01, 2016 [facility] VISIT MENTAL HEALTH ESTAB PT CPT-4 G0470 January 01, 2016 Results No Known Results Summary Purpose eClinicalWorks Submission
--- OUTSIDE RECORDS SUMMARY | 2017-11-21 17:41 | XMS REPORT ---
Author Author ADINA ZAMBRANO Organization [facility] Address [address] [place] [address] Phone Unavailable Care Team Providers Care Otr Company Driver Name Role Phone ADINA ZAMBRANO Unavailable Unavailable PROBLEMS Type Condition ICD9-CM Code XIX36-HY Code Onset Dates Condition Status SNOMED Code Problem Essential hypertension I10 Active 25211536 Problem Dysthymic disorder F34.1 Active 67136045 Problem Mixed hyperlipidemia E78.2 Active 622758436 Problem Gastroesophageal reflux disease without esophagitis K21.9 Active 646105184 Problem Acute gout of right ankle, 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 Active 643611621 Problem Acute left-sided low back pain with left-sided sciatica M54.42 Active 224797721 Problem Arthritis M19.90 Active 6125425 Problem Generalized anxiety disorder F41.1 Active 02658053 Problem Chronic kidney disease, unspecified stage N18.9 Active 641779009 Problem Gingivitis K05.10 Active 83299164 ALLERGIES Substance Reaction Event Type Date Status Penicillin V Potassium Unknown Drug Allergy Sep, Active SOCIAL HISTORY Never Assessed PLAN OF CARE Activity Details Follow Up PATIENT HAS APPT. Reason:HYGIENE WITH ADINA VITAL SIGNS MEDICATIONS Medication Instructions Dosage Frequency Start Date End Date Duration Status Colchicine 0.6 MG Orally Once a day 1 tablet 24h Active Uloric 80 MG Orally Once a day 1 tablet 24h Active Sudafed 30 MG Orally every 6 hrs 1 tablet as needed 6h Aug, Active Aloe Vera Concentrate 25 MG Active Magnesium 250 MG Orally Once a [...] 24h Active Vitamin C 500 MG Active Carafate 1 GM Orally 4 times a day 1 tablet on an empty stomach 6h Sep, Apr, 30 day(s) Active Protonix 40 Orally Once a day 1 tablet 24h 30 Active Vitamin D3 1000 UNIT Orally Once a day 1 capsule 24h Active RESULTS No Results PROCEDURES Procedure Date Ordered Result Body Site SCREENING OF A PATIENT October 17, 2016 Billing Notes on claim October 17, 2016 IMMUNIZATIONS No Known Immunizations MEDICAL (GENERAL) HISTORY Type Description Date Medical History pneumonia Medical History High Blood pressure Medical History bronchitis Medical History kidney disease Medical History anemia Medical History arthritis Medical History Gout Surgical History Gallbladder Surgical History tonsillectomy Surgical History ENDO 02/2016 Hospitalization History chest pains 2013 Hospitalization History involuntary psych hold 01/20-01/24/17
--- OUTSIDE RECORDS SUMMARY | 2017-11-21 17:41 | XMS REPORT ---
Author Author MELVI EDE [facility] Address [address] [place] [address] Care Team Providers Care Dental Hygiene Professor Name Role Phone MECCA OGDENY Unavailable PROBLEMS Type Condition ICD9-CM Code JIP96-XA Code Onset Dates Condition Status SNOMED Code Problem Dysthymic disorder F34.1 Active 35878805 Problem Arthritis M19.90 Active 0626744 Problem Generalized anxiety disorder F41.1 Active 62251338 Problem Gastroesophageal reflux disease without esophagitis K21.9 Active 705365463 Problem Essential hypertension I10 Active 14123300 Problem Mixed hyperlipidemia E78.2 Active 184105398 Problem Vertigo R42 Active 402645428 Problem Type 2 diabetes mellitus without complication, without long-term current use of insulin E11.9 Active 429894999 Problem Acute left-sided low back pain with left-sided sciatica M54.42 Active 793853502 Problem Gingivitis K05.10 Active 72807421 Problem Exophthalmia H05.20 Active 34101842 Problem Acute gout of right ankle, 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 Active 357899522 ALLERGIES No Information ENCOUNTERS Encounter Location Date Diagnosis [facility] [address] [address] Dec, [facility] [id number] [phone] Sep, [facility] [address] [place] [address] Aug, Dental examination Z01.20 [facility] [address] [place] [address] Aug, [facility] [address], [place] [address] Aug, [facility] [address] [place] [id number] [place] [phone] 14 Aug, 2017 Aphthous stomatitis K12.0 and BMI 45.0-49.9, adult Z68.42 [place] [address] [address] 05 Aug, 2017 [place] [address] [address] Aug, Vertigo R42 ; Impacted cerumen of both ears H61.23 ; Abnormal RBC indices R71.8 ; Exophthalmia H05.20 ; Elevated glucose R73.09 ; Type 2 diabetes mellitus without complication, without long-term current use of insulin E11.9 and BMI 45.0-49.9, adult Z68.42 [place] [address] [address] 19 Jul, 2017 Dizziness R42 and BMI 45.0-49.9, adult Z68.42 [facility] [address] [address] Jun, Vertigo R42 and BMI 45.0-49.9, adult Z68.42 [facility] [address] [id number] May, Dental caries K02.9 [facility] [address] [id number] [phone] May, 2017 Encounter for dental exam and cleaning w/o abnormal findings Z01.20 [place] [id number] [place] [address] 07 Apr, 2017 Acute non-recurrent maxillary sinusitis J01.00 [place] [address] [address] 09 Mar, 2017 [place] [address] [address] 11 Feb, 2017 Acute gout of right ankle, 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 [place] [address] [place] [address] 11 Feb, 2017 [facility] [id number] [place] [phone] Jan, Dental examination Z01.20 [facility] [id number] [place] [phone] Jan, Encounter for dental examination and cleaning without abnormal findings Z01.20 [facility] [id number] [place] [phone] Jan, Dental examination Z01.20 [facility] [address] [address] Jan, Acute non-recurrent frontal sinusitis J01.10 ; Essential hypertension I10 ; Mixed hyperlipidemia E78.2 ; Sore throat J02.9 and Gastroesophageal reflux disease without esophagitis K21.9 [facility] [address] [id number] Dec, [facility] [id number] [place] [phone] Dec, Other secondary acute gout of multiple sites M10.49 and Acute upper respiratory infection, unspecified J06.9 [facility] [id number] [place] [address] [phone] Nov, Sore throat J02.9 ; Acute nasopharyngitis (common cold) J00 and Acute left-sided low back pain with left-sided sciatica M54.42 [facility] [id number] [place] [phone] October, Encounter for dental examination and cleaning without abnormal findings Z01.20 [facility] [id number] [place] [phone] October, Acute upper respiratory infection, unspecified J06.9 and Sore throat J02.9 [facility] [id number] [place] [phone] Sep, Encounter for dental examination and cleaning without abnormal findings Z01.20 [facility] [id number] [place] [address] Sep, Gastroesophageal reflux disease without esophagitis K21.9 [facility] [address] [place] [phone] Aug, Sore throat J02.9 and Acute idiopathic gout of right wrist M10.031 [facility] [address] [id number] Jul, Encounter for dental examination and cleaning without abnormal findings Z01.20 [facility] [address] [address] Jun, [facility] [address] [address] Jun, Lower abdominal pain R10.30 [facility] [address] [id number] Jun, Encounter for dental examination and cleaning without abnormal findings Z01.20 [facility] [address] [address] May, Chronic kidney disease, unspecified stage N18.9 and Mouth ulcer K12.1 [facility] [address] [address] May, Chronic kidney disease, unspecified stage N18.9 [facility] [address] [address] May, Encounter for dental examination and cleaning without abnormal findings Z01.20 [facility] [address] [address] May, Encounter for dental examination and cleaning without abnormal findings Z01.20 [facility] [address] [address] May, Hypokalemia E87.6 ; Essential hypertension I10 ; Gastroesophageal reflux disease without esophagitis K21.9 and Right-sided thoracic back pain, unspecified chronicity M54.6 [facility] [place] [id number] [place] [phone] May, Oral candidiasis B37.0 [place] [address] [address] May, [place] [address] [address] May, Cracked tooth K03.81 and Retained dental root K08.3 [place] [address] [address] May, Dental examination Z01.20 [facility] [place] [address] [address] Apr, Acute right flank pain R10.9 and Acute left lower quadrant pain R10.32 [place] [address] [address] 08 Apr, 2016 Bronchitis J40 [place] [address] [address] Mar, Dental examination Z01.20 [place] [address] [address] Mar, Dysthymic disorder F34.1 [facility] [place] [id number] [place] [phone] Mar, Gingivitis K05.10 and Torticollis M43.6 [place] [address] [id number] [place] [address] Feb, Dysthymic disorder F34.1 [facility] [place] [address] [address] Feb, Lymph nodes enlarged R59.9 [facility] [place] [address] [id number] [place] [phone] Jan, Left otitis media, unspecified chronicity, unspecified otitis media type H66.92 [place] [address] [id number] [place] [address] Jan, Dysthymic disorder F34.1 and Generalized anxiety disorder F41.1 [place] [address] [id number] [place] [address] Dec, Dental examination Z01.20 [place] [address] [address] Dec, Dysthymic disorder F34.1 and Generalized anxiety disorder F41.1 [place] [address] [address] Dec, Gastroesophageal reflux disease without esophagitis K21.9 and Arthritis M19.90 [place] [address] [address] Dec, Dysthymic disorder F34.1 and Generalized anxiety disorder F41.1 [facility] [id number] [place] [address] Dec, Gingivitis K05.10 [place] [address] [address] Dec, Essential hypertension I10 ; Epigastric pain R10.13 ; Mixed hyperlipidemia E78.2 ; Proptosis H05.20 and Gastroesophageal reflux disease without esophagitis K21.9 [place] [id number] [place] [address]- [address] Dec, [place] [address] [address] Nov, Dysthymic disorder F34.1 [facility] [id number] [place] [address] Nov, Epigastric pain R10.13 and Gastroesophageal reflux disease , esophagitis presence not specified K21.9 [place] [address] [address] Nov, Depression, unspecified depression type F32.9 [facility] [address] [place] [address]- [address] 24 Nov, 2015 Essential hypertension I10 ; Mixed hyperlipidemia E78.2 ; Proptosis H05.20 ; Gastroesophageal reflux disease without esophagitis K21.9 and Depression, unspecified depression type F32.9 [facility] [address] [id number] [place] [address] 9[address]64- 5058 Nov, [facility] [address] [place] [id number] [place] [address] Nov, Sore in mouth K13.79 [facility] [address] [address] 14 Nov, 2015 Left-sided chest wall pain R07.89 and Pain of right calf M79.661 [place] [id number] [place] [address] 06 Nov, 2015 Gastroesophageal reflux disease, esophagitis presence not specified K21.9 and Environmental allergies Z91.09 [facility] [id number] [place] [phone] October, Dental examination Z01.20 IMMUNIZATIONS No Known Immunizations SOCIAL HISTORY Never Assessed REASON FOR VISIT Hospital admit PLAN OF CARE VITAL SIGNS MEDICATIONS Unknown [...]
--- OUTSIDE RECORDS SUMMARY | 2017-11-21 17:41 | XMS REPORT ---
Author Author ADINA ZAMBRANO Organization [facility] Address [address] [place] [address] Phone Unavailable Care Team Providers Care Bb Shot Packer Name Role Phone ADINA ZAMBRANO Unavailable Unavailable PROBLEMS Type Condition ICD9-CM Code DEZ68-MJ Code Onset Dates Condition Status SNOMED Code Problem Essential hypertension I10 Active 89423050 Problem Dysthymic disorder F34.1 Active 57886373 Problem Mixed hyperlipidemia E78.2 Active 183973226 Problem Gastroesophageal reflux disease without esophagitis K21.9 Active 519300956 Problem Acute gout of right ankle, 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 Active 195353663 Problem Acute left-sided low back pain with left-sided sciatica M54.42 Active 948959894 Problem Arthritis M19.90 Active 3582516 Problem Generalized anxiety disorder F41.1 Active 89753625 Problem Chronic kidney disease, unspecified stage N18.9 Active 428176848 Problem Gingivitis K05.10 Active 13335836 ALLERGIES Substance Reaction Event Type Date Status Penicillin V Potassium Unknown Drug Allergy October, Active SOCIAL HISTORY Never Assessed PLAN OF CARE Activity Details Follow Up PATIENT HAS APPT Reason:SCREENING WITH ADINA AND RESTORATIVE WITH DR MOON VITAL SIGNS MEDICATIONS Medication Instructions Dosage Frequency Start Date End Date Duration Status Uloric 80 MG Orally Once a day 1 tablet 24h Active Pravastatin Sodium 10 MG Orally Once a day 1 tablet 24h Active Lisinopril 10 MG Orally Once a day 1 tablet 24h Active Potassium Chloride Mee ER 10 MEQ Orally Once a day 2 tablets with food 24h Active Magnesium 250 MG Orally Once a day 1 tablet with a meal 24h Active Sudafed 30 MG Orally every 6 hrs 1 tablet as needed 6h Aug, Active Aloe Vera Concentrate 25 MG Active Protonix 40 Orally Once a day 1 tablet 24h 30 Active Vitamin D3 1000 UNIT Orally Once a day 1 capsule 24h Active Mens Multi Vitamin & Mineral Active Carafate 1 GM Orally 4 times a day 1 tablet on an empty stomach 6h Sep, Apr, 30 day(s) Active Vitamin B-6 100 MG Orally Once a day 1 tablet 24h Active Vitamin C 500 MG Active Colchicine 0.6 MG Orally Once a day 1 tablet 24h Active RESULTS No Results PROCEDURES Procedure Date Ordered Result Body Site PERIODIC ORAL EXAMINATION November 14, 2016 INTRAORL-PERIAPICAL EA ADD FILM November 14, 2016 Periodontal maint procedures November 14, 2016 INTRAORL-PERIAPICAL EA ADD FILM November 14, 2016 INTRAORL-PERIAPICAL EA ADD FILM November 14, 2016 BITEWINGS - FOUR FILMS November 14, 2016 INTRAORL-PERIAPICAL EA ADD FILM November 14, 2016 IMMUNIZATIONS No Known Immunizations MEDICAL (GENERAL) HISTORY Type Description Date Medical History pneumonia Medical History High Blood pressure Medical History bronchitis Medical History kidney disease Medical History anemia Medical History arthritis Medical History Gout Surgical History Gallbladder Surgical History tonsillectomy Surgical History ENDO 02/2016 Hospitalization History chest pains 2013 Hospitalization History involuntary psych hold 01/20-01/24/17
--- OUTSIDE RECORDS SUMMARY | 2017-11-21 17:41 | XMS REPORT ---
Author EDGARDO Starks [facility] eClinicalWorks Address Unknown Phone Unavailable Care Team Providers Care Special Education Resource Teacher Name Role Phone EDGARDO BATES CP Unavailable Allergies, Adverse Reactions, Alerts Substance Reaction Event Type Penicillin V Potassium Info Not Available Drug Allergy Problems Problem Type Condition Code Onset Dates Condition Status Assessment Arthritis M19.90 Active Problem Generalized anxiety disorder F41.1 Active Problem Dysthymic disorder F34.1 Active Problem Arthritis M19.90 Active Problem Gastroesophageal reflux disease without esophagitis K21.9 Active Assessment Gastroesophageal reflux disease without esophagitis K21.9 Active Problem Mixed hyperlipidemia E78.2 Active Problem Essential hypertension I10 Active Medications Medication Code System Code Instructions Start Date End Date Status Dosage Magnesium [facility] [address]-59 250 MG Orally Once a day 1 tablet with a meal Flonase [facility] [address]-28 50 MCG/ACT Nasally Once a day 1 spray in each nostril Potassium Chloride Mee ER [facility] [address]-82 10 MEQ Orally Once a day 1 tablet with food Vitamin C [facility] [address] 500 MG Orally not defined Protonix [facility] 70977217744 40 Orally Once a day [address] [facility] 24618[address]69 Orally not defined Naproxen [facility] [address]-85 500 MG Orally every 12 hrs 1 tablet as needed Protonix [facility] [address]-65 40 mg Orally Once a day November 27, 2015 [address] [facility] [address]-02 10 MG Orally Once a day 1 tablet Vitamin B-[address] [facility] [address]-86 100 MG Orally Once a day 1 tablet Aloe Vera Concentrate [facility] 50377-12503 25 MG Orally not defined Pravastatin Sodium [facility] [address]-91 10 MG Orally Once a day [address] [facility] [address]-77 0.6 MG Orally Once a day 1 tablet Mens Multi Vitamin & Mineral [facility] 570[address]45 Orally not defined Vitamin D3 [facility] 25935[address] 1000 UNIT Orally Once a day [address] [facility] [address]-59 300 MG Orally Once a day 1.5 tablet Procedures Procedure Coding System Code Date Office Visit, Est Pt., Level 3 CPT-4 92366 January 08, 2016 [facility] VISIT ESTABLISHED PATIENT CPT-4 G0467 January 08, 2016 Vital Signs Date/Time: January 08, 2016 Cardiac Monitoring Heart Rate 106 bpm Weight 306.3 lbs Height 70 in Blood Pressure Diastolic 90 mmHg Blood Pressure Systolic 160 mmHg Results No Known Results Summary Purpose eClinicalWorks Submission
--- OUTSIDE RECORDS SUMMARY | 2017-11-21 17:42 | XMS REPORT ---
Author Author EDGARDO BATES [facility] Address [address] [place] [address] Care Team Providers Care Personal Care Assistant Name Role Phone EDGARDO BATES Unavailable PROBLEMS Type Condition ICD9-CM Code HZK86-LP Code Onset Dates Condition Status SNOMED Code Problem Dysthymic disorder F34.1 Active 49383529 Problem Arthritis M19.90 Active 6261254 Problem Generalized anxiety disorder F41.1 Active 82179416 Problem Gastroesophageal reflux disease without esophagitis K21.9 Active 918548801 Problem Essential hypertension I10 Active 97089449 Problem Mixed hyperlipidemia E78.2 Active 372178603 Problem Vertigo R42 Active 978331803 Problem Type 2 diabetes mellitus without complication, without long-term current use of insulin E11.9 Active 254110973 Problem Acute left-sided low back pain with left-sided sciatica M54.42 Active 490951043 Problem Gingivitis K05.10 Active 88393015 Problem Exophthalmia H05.20 Active 28150112 Problem Acute gout of right ankle, 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 Active 494286775 ALLERGIES No Information ENCOUNTERS Encounter Location Date Diagnosis [facility] [address] [address] Dec, [facility] [id number] [place] [phone] Sep, Dental examination Z01.20 [facility] [address] [address] Sep, [facility] [id number] [place] [phone] Aug, Dental examination Z01.20 [facility] [address] [place] [address] Aug, [facility] [id number] [place] [address] Aug, [facility] [address] [address] 14 Aug, 2017 Aphthous stomatitis K12.0 and BMI 45.0-49.9, adult Z68.42 [place] [address] [address] 05 Aug, 2017 [place] [address] [address] 05 Aug, 2017 Vertigo R42 ; Impacted cerumen of both ears H61.23 ; Abnormal RBC indices R71.8 ; Exophthalmia H05.20 ; Elevated glucose R73.09 ; Type 2 diabetes mellitus without complication, without long-term current use of insulin E11.9 and BMI 45.0-49.9, adult Z68.42 [place] [address] [address] 19 Jul, 2017 Dizziness R42 and BMI 45.0-49.9, adult Z68.42 [facility] IN [facility] [address] [address] Jun, Vertigo R42 and BMI 45.0-49.9, adult Z68.42 [facility] [address] [id number] May, Dental caries K02.9 [facility] [address] [phone] May, Encounter for dental exam and cleaning w/o abnormal findings Z01.20 [place] [address] [address] 07 Apr, 2017 Acute non-recurrent maxillary sinusitis J01.00 [place] [address] [address] 09 Mar, 2017 [place] [address] [address] Feb, Acute gout of right ankle, 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 [facility] [address] [place] [address] Feb, [facility] [id number] [place] [address] [phone] Jan, Dental examination Z01.20 [facility] [id number] [place] [address] [phone] Jan, Encounter for dental examination and cleaning without abnormal findings Z01.20 [facility] [id number] [place] [address] [phone] Jan, Dental examination Z01.20 [facility] [id number] [place] [address] [phone]- 5536 Jan, Acute non-recurrent frontal sinusitis J01.10 ; Essential hypertension I10 ; Mixed hyperlipidemia E78.2 ; Sore throat J02.9 and Gastroesophageal reflux disease without esophagitis K21.9 [facility] [id number] [place] [phone] Dec, [facility] [id number] [place] [address] Dec, Other secondary acute gout of multiple sites M10.49 and Acute upper respiratory infection, unspecified J06.9 [facility] [id number] [place] [phone] Nov, Sore throat J02.9 ; Acute nasopharyngitis (common cold) J00 and Acute left-sided low back pain with left-sided sciatica M54.42 [facility] [address] [place] [address] [id number] October, Encounter for dental examination and cleaning without abnormal findings Z01.20 [facility] [address] [place] [address] October, Acute upper respiratory infection, unspecified J06.9 and Sore throat J02.9 [facility] [address] [phone] Sep, Encounter for dental examination and cleaning without abnormal findings Z01.20 [facility] [id number] [place] [address] [phone]- 7696 Sep, Gastroesophageal reflux disease without esophagitis K21.9 [facility] [id number] [place] [phone] Aug, Sore throat J02.9 and Acute idiopathic gout of right wrist M10.031 [facility] [id number] [place] [address] [id number] Jul, Encounter for dental examination and cleaning without abnormal findings Z01.20 [facility] [id number] [place] [address] [phone] Jun, [facility] [id number] [place] [address] 59010- [address]290 Jun, Lower abdominal pain R10.30 [facility] [id number] [place] [address] [id number] Jun, Encounter for dental examination and cleaning without abnormal findings Z01.20 [facility] [id number] [place] [address]64- [address]45 May, Chronic kidney disease, unspecified stage N18.9 and Mouth ulcer K12.1 [facility] [id number] [place] [address] 0[address]17- 4748 May, Chronic kidney disease, unspecified stage N18.9 [facility] [id number] [place] [address] 99716- 2406 May, Encounter for dental examination and cleaning without abnormal findings Z01.20 [facility] [id number] [place] [address] 27590- 1257 May, Encounter for dental examination and cleaning without abnormal findings Z01.20 [facility] [id number] [place] [address] 04796- 2996 May, Hypokalemia E87.6 ; Essential hypertension I10 ; Gastroesophageal reflux disease without esophagitis K21.9 and Right-sided thoracic back pain, unspecified chronicity M54.6 [facility] [place] [address] [address] May, Oral candidiasis B37.[address] [address] May, [place] [address] [address] May, Cracked tooth K03.81 and Retained dental root K08.[address] [address] May, Dental examination Z01.20 [facility] IN [address] [address] 28 Apr, 2016 Acute right flank pain R10.9 and Acute left lower quadrant pain R10.32 [place] [address] [address] 08 Apr, 2016 Bronchitis J40 [place] [address] [address]- [address] Mar, Dental examination Z01.[address] [address] Mar, Dysthymic disorder F34.1 [facility] [address] [address] 05 Mar, 2016 Gingivitis K05.10 and Torticollis M43.[address] [address] 08 Feb, 2016 Dysthymic disorder F34.1 [facility] [address] [address] 07 Feb, 2016 Lymph nodes enlarged R59.9 [facility] [place] [address] [place] [address] Jan, Left otitis media, unspecified chronicity, unspecified otitis media type H66.92 [place] [id number] [place] [address] 61387- 7312 08 Jan, 2016 Dysthymic disorder F34.1 and Generalized anxiety disorder F41.1 [place] [address] [address] Dec, Dental examination Z01.20 [place] [id number] [place] [address] 67358- 2634 Dec, Dysthymic disorder F34.1 and Generalized anxiety disorder F41.1 [place] [id number] [place] [address] 26278- 3857 Dec, Gastroesophageal reflux disease without esophagitis K21.9 and Arthritis M19.90 [place] [address] [place] [address] 28309- 8399 Dec, Dysthymic disorder F34.1 and Generalized anxiety disorder F41.1 [facility] [place] [id number] [place] [phone] [phone] Dec, Gingivitis K05.10 [place] [address] [place] [address] 27281- 2707 Dec, Essential hypertension I10 ; Epigastric pain R10.13 ; Mixed hyperlipidemia E78.2 ; Proptosis H05.20 and Gastroesophageal reflux disease without esophagitis K21.9 [place] [id number] [place] [address] 78229- 5806 Dec, [place] [address] [address]- [address] Nov, Dysthymic disorder F34.1 [facility] [id number] [place] [address]64 [address]6 Nov, Epigastric pain R10.13 and Gastroesophageal reflux disease , esophagitis presence not specified K21.9 [facility] [address] [place] [address] 56780- 2682 24 Nov, 2015 Depression, unspecified depression type F32.9 [facility] [id number] [place] [address] 69504- 2083 24 Nov, 2015 Essential hypertension I10 ; Mixed hyperlipidemia E78.2 ; Proptosis H05.20 ; Gastroesophageal reflux disease without esophagitis K21.9 and Depression, unspecified depression type F32.9 [facility] [id number] [place] [address] 56920- 3516 22 Nov, 2015 [facility] [address] [address] 21 Nov, 2015 Sore in mouth K13.79 [facility] [place] [id number] [place] [address] 14 Nov, 2015 Left-sided chest wall pain R07.89 and Pain of right calf M79.661 [place] [address] [place] [address] 81173- 2945 06 Nov, 2015 Gastroesophageal reflux disease, esophagitis presence not specified K21.9 and Environmental allergies Z91.09 [facility] [address] [place] [address] [phone] October, Dental examination Z01.20 IMMUNIZATIONS No Known Immunizations SOCIAL HISTORY Never Assessed REASON FOR VISIT Refill request PLAN OF CARE VITAL SIGNS MEDICATIONS Medication Instructions Dosage Frequency Start Date End Date Duration Status Protonix 40 mg Orally Once a day 1 tablet 24h 30 Active RESULTS No Results PROCEDURES No Known procedures [...]
--- OUTSIDE RECORDS SUMMARY | 2017-11-21 17:42 | XMS REPORT ---
Author Author ADINA ZAMBRANO Organization [facility] Address [address] [place] [address] Phone Unavailable Care Team Providers Care Station Engineer Chief Name Role Phone ADINA ZAMBRANO Unavailable Unavailable PROBLEMS Type Condition ICD9-CM Code ETH52-ZR Code Onset Dates Condition Status SNOMED Code Problem Gastroesophageal reflux disease without esophagitis K21.9 Active 062239461 Problem Mixed hyperlipidemia E78.2 Active 554766334 Problem Essential hypertension I10 Active 27763002 Problem Acute left-sided low back pain with left-sided sciatica M54.42 Active 124122760 Problem Chronic kidney disease, unspecified stage N18.9 Active 625428823 Problem Generalized anxiety disorder F41.1 Active 77561192 Problem Dysthymic disorder F34.1 Active 76967455 Problem Gingivitis K05.10 Active 88094456 Problem Arthritis M19.90 Active 9756188 ALLERGIES Substance Reaction Event Type Date Status Penicillin V Potassium Unknown Drug Allergy Jun, Active SOCIAL HISTORY No smoking Hx information available PLAN OF CARE VITAL SIGNS MEDICATIONS Medication Instructions Dosage Frequency Start Date End Date Duration Status Peridex 0.12 % Mouth/Throat twice daily as directed May,Jun 31 days Active RESULTS No Results PROCEDURES Procedure Date Ordered Related Diagnosis Body Site ASSESSMENT OF A PATIENT Jun 27, 2016 IMMUNIZATIONS No Known Immunizations
--- OUTSIDE RECORDS SUMMARY | 2017-11-21 17:42 | XMS REPORT ---
Author Author GEORGES MOON Organization [facility] Address [address] [place] [address] Care Team Providers Care Outside Machinist Supervisor Name Role Phone GEORGES MOON Unavailable PROBLEMS Type Condition ICD9-CM Code ZQS77-MV Code Onset Dates Condition Status SNOMED Code Problem Gastroesophageal reflux disease without esophagitis K21.9 Active 074148560 Problem Mixed hyperlipidemia E78.2 Active 132229035 Problem Essential hypertension I10 Active 72964823 Problem Acute left-sided low back pain with left-sided sciatica M54.42 Active 327819323 Problem Chronic kidney disease, unspecified stage N18.9 Active 032161571 Problem Generalized anxiety disorder F41.1 Active 20753488 Problem Dysthymic disorder F34.1 Active 02402306 Problem Gingivitis K05.10 Active 46949588 Problem Arthritis M19.90 Active 0318347 ALLERGIES Substance Reaction Event Type Date Status Penicillin V Potassium Unknown Drug Allergy May, Active SOCIAL HISTORY No smoking Hx information available PLAN OF CARE Activity Details Follow Up 2 Weeks Reason:EVL APPT MADE VITAL SIGNS MEDICATIONS Medication Instructions Dosage Frequency Start Date End Date Duration Status Peridex 0.12 % Mouth/Throat twice daily as directed May,Jun 31 days Active RESULTS No Results PROCEDURES Procedure Date Ordered Related Diagnosis Body Site LTD ORAL EVALUATION - PROBLEM FOCUS Jun 13, 2016 Billing Notes on claim Jun 13, 2016 IMMUNIZATIONS No Known Immunizations
--- OUTSIDE RECORDS SUMMARY | 2017-11-21 17:42 | XMS REPORT ---
Author YVONNE Bashir [facility] eClinicalWorks Address Unknown Phone Unavailable Care Team Providers Care Underground Foreman Name Role Phone YVONNE SALAS CP Unavailable Allergies, Adverse Reactions, Alerts Substance Reaction Event Type Penicillin V Potassium Info Not Available Drug Allergy Problems Problem Type Condition Code Onset Dates Condition Status Assessment Gingivitis K05.10 Active Assessment Torticollis M43.6 Active Problem Arthritis M19.90 Active Problem Generalized anxiety disorder F41.1 Active Problem Gingivitis K05.10 Active Problem Essential hypertension I10 Active Problem Gastroesophageal reflux disease without esophagitis K21.9 Active Problem Dysthymic disorder F34.1 Active Problem Mixed hyperlipidemia E78.2 Active Medications Medication Code System Code Instructions Start Date End Date Status Dosage Aloe Vera Concentrate [facility] 609[address]-29119 25 MG Orally not defined Vitamin D3 [facility] [address]7540-77712 1000 UNIT Orally Once a day 1 capsule Mens Multi Vitamin & Mineral [facility] 15494-85122 Orally not defined Potassium Chloride Mee ER [facility] [address]-88 10 MEQ Orally Once a day 1 tablet with food PredniSONE [facility] [address]-95 20 MG Orally Once a day Mar 27, 2016 Apr 26, 2016 1 tablet Vitamin B-6 [facility] [address]-50 100 MG Orally Once a day 1 tablet Protonix [facility] [address]-56 40 mg Orally Once a day November 27, 2015 1 tablet Pravastatin Sodium [facility] [address]-65 10 MG Orally Once a day 1 tablet Colchicine [facility] [address]-98 0.6 MG Orally Once a day 1 tablet Clindamycin HCl [facility] [address]-64 150 MG Orally every 6 hrs Mar 27, 2016 Apr 06, 2016 2 capsules Cyclobenzaprine HCl [facility] [address]-36 10 MG Orally Three times a day MarApr 26, 2016 1 tablet Lisinopril [facility] [address]-52 10 MG Orally Once a day 1 tablet Acidophilus [facility] 47161-25114 Orally not defined Magnesium [facility] [address]-90 250 MG Orally Once a day 1 tablet with a meal Vitamin C [facility] 70418-95463 500 MG Orally not defined Procedures Procedure Coding System Code Date Office Visit, Est Pt., Level 3 CPT-4 16111 Mar 27, 2016 TORADOL (IM) 60 MG/2ML (UP TO 15 MG) CPT-4 J1885 Mar 27, 2016 [facility] VISIT ESTABLISHED PATIENT CPT-4 G0467 Mar 27, 2016 THER/PROPH/DIAG INJ, SC/IM CPT-4 66539 Mar 27, 2016 Vital Signs Date/Time: Mar 27, 2016 Cardiac Monitoring Heart Rate 88 bpm Weight 303 lbs Height 70 in BMI 43.47 Index Results No Known Results Summary Purpose eClinicalWorks Submission
--- OUTSIDE RECORDS SUMMARY | 2017-11-21 17:42 | XMS REPORT ---
Author HAVEN Hoffman eClinicalWorks Address Unknown Phone Unavailable Care Team Providers Care Franchise Manager Name Role Phone HAVEN KESSLER CP Unavailable Allergies, Adverse Reactions, Alerts Substance Reaction Event Type Penicillin V Potassium Info Not Available Drug Allergy Problems Problem Type Condition Code Onset Dates Condition Status Problem Generalized anxiety disorder F41.1 Active Problem Dysthymic disorder F34.1 Active Problem Arthritis M19.90 Active Problem Gastroesophageal reflux disease without esophagitis K21.9 Active Assessment Dental examination Z01.20 Active Problem Mixed hyperlipidemia E78.2 Active Problem Essential hypertension I10 Active Medications Medication Code System Code Instructions Start Date End Date Status Dosage Vitamin C [facility] 11981-74027 500 MG Orally not defined Pravastatin Sodium [facility] [address]-31 10 MG Orally Once a day 1 tablet Mens Multi Vitamin & Mineral [facility] 69965-52234 Orally not defined Aloe Vera Concentrate [facility] [address]-42209 25 MG Orally not defined Vitamin B-6 [facility] [address]-19 100 MG Orally Once a day 1 tablet Allopurinol [facility] [address]-94 300 MG Orally Once a day 1.5 tablet Flonase [facility] [address]-38 50 MCG/ACT Nasally Once a day 1 spray in each nostril Vitamin D3 [facility] 59707-14886 1000 UNIT Orally Once a day 1 capsule Protonix [facility] 61109487646 40 Orally Once a day 1 tablet Magnesium [facility] [address]-19 250 MG Orally Once a day 1 tablet with a meal Lisinopril [facility] [address]-72 10 MG Orally Once a day 1 tablet Potassium Chloride Mee ER [facility] [address]-68 10 MEQ Orally Once a day 1 tablet with food Acidophilus [facility] 22056-73109 Orally not defined Naproxen [facility] [address]-91 500 MG Orally every 12 hrs 1 tablet as needed Colchicine [facility] [address]-15 0.6 MG Orally Once a day 1 tablet Protonix [facility] [address]-44 40 mg Orally Once a day November 27, 2015 1 tablet Procedures Procedure Coding System Code Date Billing Notes on claim CPT-4 EC109 January 15, 2016 LTD ORAL EVALUATION - PROBLEM FOCUS CPT-4 D0140 January 15, 2016 Vital Signs Date/Time: January 15, 2016 Blood Pressure Diastolic 75 mmHg Blood Pressure Systolic 141 mmHg Height 70 in Results No Known Results Summary Purpose eClinicalWorks Submission
--- OUTSIDE RECORDS SUMMARY | 2017-11-21 17:42 | XMS REPORT ---
Author Author JOHN LORENZO Organization [facility] Address [address] [place] [address] Care Team Providers Care Central Service Technician Name Role Phone JOHN LORENZO Unavailable PROBLEMS Type Condition ICD9-CM Code FTN43-JC Code Onset Dates Condition Status SNOMED Code Problem Essential hypertension I10 Active 05249941 Problem Dysthymic disorder F34.1 Active 00491689 Problem Mixed hyperlipidemia E78.2 Active 186988723 Problem Gastroesophageal reflux disease without esophagitis K21.9 Active 287921870 Problem Acute gout of right ankle, 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 Active 662745010 Problem Acute left-sided low back pain with left-sided sciatica M54.42 Active 763704118 Problem Arthritis M19.90 Active 0880140 Problem Generalized anxiety disorder F41.1 Active 08976165 Problem Chronic kidney disease, unspecified stage N18.9 Active 142071883 Problem Gingivitis K05.10 Active 99888940 ALLERGIES Substance Reaction Event Type Date Status Penicillin V Potassium Unknown Drug Allergy October, Active SOCIAL HISTORY Never Assessed PLAN OF CARE Activity Details Follow Up prn Reason: VITAL SIGNS Height 70 in 2016-10-22 Weight 304.0 lbs 2016-10-22 Temperature 99.4 degrees Fahrenheit 2016-10-22 Heart Rate 84 bpm 2016-10-22 Respiratory Rate 20 2016-10-22 BMI 43.61 kg/m2 2016-10-22 Blood pressure systolic 130 mmHg 2016-10-22 Blood pressure diastolic 90 mmHg 2016-10-22 MEDICATIONS Medication Instructions Dosage Frequency Start Date End Date Duration Status Magnesium 250 MG Orally Once a day 1 tablet with a meal 24h Active Vitamin B-6 100 MG Orally Once a day 1 tablet 24h Active Potassium Chloride Mee ER 10 MEQ Orally Once a day 2 tablets with food 24h Active Uloric 80 MG Orally Once a day 1 tablet 24h Active Vitamin C 500 MG Active Sudafed 30 MG Orally every 6 hrs 1 tablet as needed 6h Aug, Active Aloe Vera Concentrate 25 MG Active Pravastatin Sodium 10 MG Orally Once a day 1 tablet 24h Active Colchicine 0.6 MG Orally Once a day 1 tablet 24h Active Mens Multi Vitamin & Mineral Active Azithromycin 250 MG Orally Once a day 2 tablets on the first day, then 1 tablet daily for 4 days 24h October, October, 5 day(s) Active Protonix 40 Orally Once a day 1 tablet 24h 30 Active Lisinopril 10 MG Orally Once a day 1 tablet 24h Active Vitamin D3 1000 UNIT Orally Once a day 1 capsule 24h Active Carafate 1 GM Orally 4 times a day 1 tablet on an empty stomach 6h Sep, Apr, 30 day(s) Active RESULTS Name Result Date Reference Range STREP A (IN HOUSE) 2016-10-22 STREP A negative Control + Lot # [id number] Exp date PROCEDURES Procedure Date Ordered Result Body Site STREP A ASSAY W/OPTIC October 22, 2016 [facility] VISIT ESTABLISHED PATIENT October 22, 2016 IMMUNIZATIONS No Known Immunizations MEDICAL (GENERAL) HISTORY Type Description Date Medical History pneumonia Medical History High Blood pressure Medical History bronchitis Medical History kidney disease Medical History anemia Medical History arthritis Medical History Gout Surgical History Gallbladder Surgical History tonsillectomy Surgical History ENDO 02/2016 Hospitalization History chest pains 2013 Hospitalization History involuntary psych hold 01/20-01/24/17
--- OUTSIDE RECORDS SUMMARY | 2017-11-21 17:43 | XMS REPORT | Continuity of Care Document ---
Author Author [facility] Organization [facility] Address Unknown Phone Unavailable Allergies Active Description Code Type Severity Reaction Onset Reported/Identified Relationship to Patient Clinical Status Yes Penicillins [id number] Drug Allergy Unknown N/A 01/31/2016 Medications There is no data. 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 CHRONIC GOUT, UNSPECIFIED, WITH TOPHUS ( 12/17/2015 WHITNEY UCNNINGHAM MD Ot K57.30 DVRTCLOS OF LG INT W/O PERFORATION OR AB 12/17/2015 WHITNEY CUNNINGHAM MD Ot R10.11 RIGHT UPPER QUADRANT PAIN 12/17/2015 WHITNEY CUNNINGHAM MD Ot R10.31 RIGHT LOWER QUADRANT PAIN 12/19/2015 WHITNEY CUNNINGHAM MD Ot K57.30 DVRTCLOS OF LG INT W/O PERFORATION OR AB 12/19/2015 WHITNEY CUNNINGHAM MD Ot R10.11 RIGHT UPPER QUADRANT PAIN 12/19/2015 WHITNEY CUNNINGHAM MD Ot R10.31 RIGHT LOWER QUADRANT PAIN 12/29/2015 TELLO EDGAR Ot M79.661 PAIN IN RIGHT LOWER LEG 01/04/2016 PETE LANDRY Ot K21.9 GASTRO-ESOPHAGEAL REFLUX DISEASE WITHOUT 01/04/2016 PETE LANDRY Ot R07.89 OTHER CHEST PAIN 01/04/2016 PETE LANDRY Ot R11.0 NAUSEA 01/04/2016 TELLO EDGAR MARKET SALES MANAGER Ot M79.661 PAIN IN RIGHT LOWER LEG 01/26/2016 PETE LANDRY Ot K21.9 GASTRO-ESOPHAGEAL REFLUX DISEASE WITHOUT 01/26/2016 PETE LANDRY Ot R07.89 OTHER CHEST PAIN 01/26/2016 PETE LANDRY Ot R11.0 NAUSEA 01/31/2016 MARR DO, ORTIZ D Ot K21.9 GASTRO-ESOPHAGEAL REFLUX DISEASE WITHOUT 01/31/2016 MARR DO, ORTIZ D Ot Z01.818 ENCOUNTER FOR OTHER PREPROCEDURAL EXAMIN 02/01/2016 MARR DO, ORTIZ D Ot K21.9 GASTRO-ESOPHAGEAL REFLUX DISEASE WITHOUT 02/01/2016 MARR DO, ORTIZ D Ot Z01.818 ENCOUNTER FOR OTHER PREPROCEDURAL EXAMIN 02/06/2016 MARR DO, ORTIZ D Ot K25.9 GASTRIC ULCER, UNSP ACUTE OR CHRONIC, 02/06/2016 MARR DO, ORTIZ D Ot K29.70 GASTRITIS, UNSPECIFIED, WITHOUT BLEEDING 02/06/2016 MARR DO, ORTIZ D Ot K29.80 DUODENITIS WITHOUT BLEEDING 02/07/2016 MARR DO, ORTIZ D Ot K25.9 GASTRIC ULCER, UNSP ACUTE OR CHRONIC, 02/07/2016 MARR DO, ORTIZ D Ot K29.70 GASTRITIS, UNSPECIFIED, WITHOUT BLEEDING 02/07/2016 MARR DO, ORTIZ D Ot K29.80 DUODENITIS WITHOUT BLEEDING 02/12/2016 MARR DO, ORTIZ D Ot K25.9 GASTRIC ULCER, UNSP ACUTE OR CHRONIC, 02/12/2016 MARR DO, ORTIZ D Ot K29.70 GASTRITIS, UNSPECIFIED, WITHOUT BLEEDING 02/12/2016 MARR DO, ORTIZ D Ot K29.80 DUODENITIS WITHOUT BLEEDING 05/23/2016 LILLY CORTES CHAIR INSTALLER Ot N28.9 DISORDER OF KIDNEY AND URETER, UNSPECIFI 05/23/2016 LILLY CORTES CHAIR INSTALLER Ot R10.32 LEFT LOWER QUADRANT PAIN 06/12/2016 LILLY CORTES CHAIR INSTALLER Ot N28.9 DISORDER OF KIDNEY AND URETER, UNSPECIFI 06/12/2016 LILLY CORTES CHAIR INSTALLER Ot R10.32 LEFT LOWER QUADRANT PAIN 10/08/2016 NAZIA VARGAS DC, Ot M54.13 RADICULOPATHY, CERVICOTHORACIC REGION 10/08/2016 NAZIA VARGAS DC Ot M79.1 MYALGIA 10/08/2016 VARGAS DC, NAZIA J Ot R29.3 ABNORMAL POSTURE 10/08/2016 SAM BECKFORD, NAZIA J Ot M54.13 RADICULOPATHY, CERVICOTHORACIC REGION 10/08/2016 SAM BECKFORD, NAZIA J Ot M79.1 MYALGIA 10/08/2016 SAM BECKFORD, NAZIA J Ot R29.3 ABNORMAL POSTURE 10/28/2016 SAM BECKFORD, NAZIA J Ot M54.13 RADICULOPATHY, CERVICOTHORACIC REGION 10/28/2016 SAM BECKFORD, NAZIA J Ot M79.1 MYALGIA 10/28/2016 SAM BECKFORD, NAZIA J Ot R29.3 ABNORMAL POSTURE 01/19/2017 TALATELLO Niranjan MCKENZIE Ot M79.661 PAIN IN RIGHT LOWER LEG 01/19/2017 LILLY CORTES APRN Ot N28.9 DISORDER OF KIDNEY AND URETER, UNSPECIFI 01/19/2017 LILLY CORTES APRN Ot R10.32 LEFT LOWER QUADRANT PAIN 01/19/2017 VARGAS ANALY, NAZIA J Ot M54.13 RADICULOPATHY, CERVICOTHORACIC REGION 01/19/2017 VARGAS ANALY, NAZIA J Ot M79.1 MYALGIA 01/19/2017 VARGAS ANALY, NAZIA Brittaney Ot R29.3 ABNORMAL POSTURE 01/20/2017 RODRI DAVE MD Ot G47.30 SLEEP APNEA, UNSPECIFIED 01/20/2017 RODRI DAVE MD Ot I12.9 HYPERTENSIVE CHRONIC KIDNEY DISEASE W ST 01/20/2017 RODRI DAVE MD Ot K21.9 GASTRO-ESOPHAGEAL REFLUX DISEASE WITHOUT 01/20/2017 RODRI DAVE MD Ot M10.00 IDIOPATHIC GOUT, UNSPECIFIED SITE 01/20/2017 RODRI DAVE MD Ot N18.9 CHRONIC KIDNEY DISEASE, UNSPECIFIED 01/20/2017 RODRI DAVE MD Ot R44.0 AUDITORY HALLUCINATIONS 01/20/2017 RODRI DAVE MD, Ot R45.851 SUICIDAL IDEATIONS 01/20/2017 RODRI DAVE MD Ot Z79.899 OTHER RESIDENTIAL (CURRENT) DRUG THERAPY 01/20/2017 RODRI DAVE MD, Ot Z87.891 PERSONAL HISTORY OF NICOTINE DEPENDENCE 01/20/2017 RODRI DAVE MD, Ot G47.30 SLEEP APNEA, UNSPECIFIED 01/20/2017 RODRI DAVE MD, Ot I12.9 HYPERTENSIVE CHRONIC KIDNEY DISEASE W ST 01/20/2017 RODRI DAVE MD, Ot K21.9 GASTRO-ESOPHAGEAL REFLUX DISEASE WITHOUT 01/20/2017 RODRI DAVE MD, Ot M10.00 IDIOPATHIC GOUT, UNSPECIFIED SITE 01/20/2017 RODRI DAVE MD, Ot N18.9 CHRONIC KIDNEY DISEASE, UNSPECIFIED 01/20/2017 RODRI DAVE MD, Ot R44.0 AUDITORY HALLUCINATIONS 01/20/2017 RODRI DAVE MD, Ot R45.851 SUICIDAL IDEATIONS 01/20/2017 RODRI DAVE MD, Ot Z79.899 OTHER RESIDENTIAL (CURRENT) DRUG THERAPY 01/20/2017 RODRI DAVE MD, Ot Z87.891 PERSONAL HISTORY OF NICOTINE DEPENDENCE Procedures There is no data. Results Test Result Range Comprehensive metabolic panel - 05/22/16 08:10 Serum or plasma sodium measurement (moles/volume) 138 mmol/L 135-145 Serum or plasma potassium measurement (moles/volume) 3.0 mmol/L 3.6-5.0 Serum or plasma chloride measurement (moles/volume) 102 mmol/L 98-107 Carbon dioxide 24 mmol/L 21-32 Serum or plasma anion gap determination (moles/volume) 12 mmol/L 5-14 Serum or plasma urea nitrogen measurement (mass/volume) 15 mg/dL 7-18 Serum or plasma creatinine measurement (mass/volume) 1.34 mg/dL 0.60-1.30 Serum or plasma urea nitrogen/creatinine mass ratio 11 NRG Serum or plasma creatinine measurement with calculation of estimated glomerular filtration rate > NRG Serum or plasma glucose measurement (mass/volume) 106 mg/dL 70-105 Serum or plasma calcium measurement (mass/volume) 9.5 mg/dL 8.5-10.1 Serum or plasma total bilirubin measurement (mass/volume) 1.0 mg/dL 0.1-1.0 Serum or plasma alkaline phosphatase measurement (enzymatic activity/volume) 76 U/L 40-136 Serum or plasma aspartate aminotransferase measurement (enzymatic activity/ volume) 18 U/L 5-34 Serum or plasma alanine aminotransferase measurement (enzymatic activity/volume ) 23 U/L 0-55 Serum or plasma protein measurement (mass/volume) 7.0 g/dL 6.4-8.2 Serum or plasma albumin measurement (mass/volume) 4.2 g/dL 3.2-4.5 Basic Metabolic Panel (8) - 06/07/16 09:57 Glucose, Serum 114 mg/dL 65-99 BUN 24 mg/dL 6-24 Creatinine, Serum 1.63 mg/dL 0.76-1.27 eGFR If NonAfricn Am 49 mL/min/1.73 >59 eGFR If Africn Am 57 mL/min/1.73 >59 BUN/Creatinine Ratio 15 9-20 Sodium, Serum 140 mmol/L 134-144 Potassium, Serum 3.4 mmol/L 3.5-5.2 Chloride, Serum 96 mmol/L 96-106 Carbon Dioxide, Total 25 mmol/L 18-29 Calcium, Serum 10.0 mg/dL 8.7-10.2 CBC With Differential/Platelet - 07/22/16 10:15 WBC 8.6 x10E3/uL 3.4-10.8 RBC 5.12 x10E6/uL 4.14-5.80 Hemoglobin 12.7 g/dL 12.6-17.7 Hematocrit 38.8 % 37.5-51.0 MCV 76 fL 79-97 MCH 24.8 pg 26.6-33.0 MCHC 32.7 g/dL 31.5-35.7 RDW 14.7 % 12.3-15.4 Platelets 384 x10E3/uL 150-379 Neutrophils 68 % Lymphs 25 % Monocytes 6 % Eos 1 % Basos 0 % Neutrophils (Absolute) 5.8 x10E3/uL 1.4-7.0 Lymphs (Absolute) 2.2 x10E3/uL 0.7-3.1 Monocytes(Absolute) 0.5 x10E3/uL 0.1-0.9 Eos (Absolute) 0.0 x10E3/uL 0.0-0.4 Baso (Absolute) 0.0 x10E3/uL 0.0-0.2 Immature Granulocytes 0 % Immature Grans (Abs) 0.0 x10E3/uL 0.0-0.1 Comp. Metabolic Panel (14) - 07/22/16 10:15 Glucose, Serum 99 mg/dL 65-99 BUN 13 mg/dL 6-24 Creatinine, Serum 1.30 mg/dL 0.76-1.27 eGFR If NonAfricn Am 65 mL/min/1.73 >59 eGFR If Africn Am 75 mL/min/1.73 >59 BUN/Creatinine Ratio 10 9-20 Sodium, Serum 141 mmol/L 134-144 Potassium, Serum 3.8 mmol/L 3.5-5.2 Chloride, Serum 95 mmol/L 96-106 Carbon Dioxide, Total 25 mmol/L 18-29 Calcium, Serum 10.3 mg/dL 8.7-10.2 Protein, Total, Serum 7.4 g/dL 6.0-8.5 Albumin, Serum 4.2 g/dL 3.5-5.5 Globulin, Total 3.2 g/dL 1.5-4.5 A/G Ratio 1.3 1.1-2.5 Bilirubin, Total 0.8 mg/dL 0.0-1.2 Alkaline Phosphatase, S 89 IU/L 39-117 AST (SGOT) 19 IU/L 0-40 ALT (SGPT) 19 IU/L 0-44 Complete blood count (CBC) with automated white blood cell (WBC) differential - 01/19/17 09:38 Blood leukocytes automated count (number/volume) 10.5 10*3/uL 4.3-11.0 Blood erythrocytes automated count (number/volume) 5.83 10*6/uL 4.35-5.85 Venous blood hemoglobin measurement (mass/volume) 14.4 g/dL 13.3-17.7 Blood hematocrit (volume fraction) 44 % 40-54 Automated erythrocyte mean corpuscular volume 76 [foz_us] 80-99 Automated erythrocyte mean corpuscular hemoglobin (mass per erythrocyte) 25 pg 25-34 Automated erythrocyte mean corpuscular hemoglobin concentration measurement ( mass/volume) 33 g/dL 32-36 Automated erythrocyte distribution width ratio 14.6 % 10.0-14.5 Automated blood platelet count (count/volume) 360 10*3/uL 130-400 Automated blood platelet mean volume measurement 9.2 [foz_us] 7.4-10.4 Automated blood neutrophils/100 leukocytes 65 % 42-75 Automated blood lymphocytes/100 leukocytes 28 % 12-44 Blood monocytes/100 leukocytes 6 % 0-12 Automated blood eosinophils/100 leukocytes 1 % 0-10 Automated blood basophils/100 leukocytes 0 % 0-10 Blood neutrophils automated count (number/volume) 6.8 10*3 1.8-7.8 Blood lymphocytes automated count (number/volume) 3.0 10*3 1.0-4.0 Blood monocytes automated count (number/volume) 0.7 10*3 0.0-1.0 Automated eosinophil count 0.1 10*3/uL 0.0-0.3 Automated blood basophil count (count/volume) 0.0 10*3/uL 0.0-0.1 Comprehensive metabolic panel - 01/19/17 09:38 Serum or plasma sodium measurement (moles/volume) 141 mmol/L 135-145 Serum or plasma potassium measurement (moles/volume) 3.1 mmol/L 3.6-5.0 Serum or plasma chloride measurement (moles/volume) 101 mmol/L 98-107 Carbon dioxide 27 mmol/L 21-32 Serum or plasma anion gap determination (moles/volume) 13 mmol/L 5-14 Serum or plasma urea nitrogen measurement (mass/volume) 14 mg/dL 7-18 Serum or plasma creatinine measurement (mass/volume) 1.48 mg/dL 0.60-1.30 Serum or plasma urea nitrogen/creatinine mass ratio 9 NRG Serum or plasma creatinine measurement with calculation of estimated glomerular filtration rate > NRG Serum or plasma glucose measurement (mass/volume) 114 mg/dL 70-105 Serum or plasma calcium measurement (mass/volume) 10.0 mg/dL 8.5-10.1 Serum or plasma total bilirubin measurement (mass/volume) 1.4 mg/dL 0.1-1.0 Serum or plasma alkaline phosphatase measurement (enzymatic activity/volume) 90 U/L 40-136 Serum or plasma aspartate aminotransferase measurement (enzymatic activity/ volume) 17 U/L 5-34 Serum or plasma alanine aminotransferase measurement (enzymatic activity/volume ) 28 U/L 0-55 Serum or plasma protein measurement (mass/volume) 7.9 g/dL 6.4-8.2 Serum or plasma albumin measurement (mass/volume) 4.4 g/dL 3.2-4.5 Serum or plasma acetaminophen measurement (mass/volume) - 01/19/17 09:38 Serum or plasma acetaminophen measurement (mass/volume) < ug/mL 10-30 Serum or plasma ethanol measurement (mass/volume) - 01/19/17 09:38 Serum or plasma ethanol measurement (mass/volume) < mg/dL <10 Urine drug screening test - 01/19/17 10:11 Urine phencyclidine detection by screening method NEGATIVE NEGATIVE Urine benzodiazepines detection by screening method NEGATIVE NEGATIVE Urine cocaine detection NEGATIVE NEGATIVE Urine amphetamines detection by screening method NEGATIVE NEGATIVE Urine methamphetamine detection by screening method NEGATIVE NEGATIVE Urine cannabinoids detection by screening method NEGATIVE NEGATIVE Urine opiates detection by screening method NEGATIVE NEGATIVE Urine barbiturates detection NEGATIVE NEGATIVE Screening urine tricyclic antidepressants detection NEGATIVE NEGATIVE Urine methadone detection by screening method NEGATIVE NEGATIVE Urine oxycodone detection NEGATIVE NEGATIVE Urine propoxyphene detection NEGATIVE NEGATIVE Complete urinalysis with reflex to culture - 01/19/17 10:11 Urine color determination YELLOW NRG Urine clarity determination CLEAR NRG Urine pH measurement by test strip 6 5-9 Specific gravity of urine by test strip 1.015 1.016- 1.022 Urine protein assay by test strip, semi-quantitative 2+ NEGATIVE Urine glucose detection by automated test strip NEGATIVE NEGATIVE Erythrocytes detection in urine sediment by light microscopy NEGATIVE NEGATIVE Urine ketones detection by automated test strip NEGATIVE NEGATIVE Urine nitrite detection by test strip NEGATIVE NEGATIVE Urine total bilirubin detection by test strip NEGATIVE NEGATIVE Urine urobilinogen measurement by automated test strip (mass/volume) NORMAL NORMAL Urine leukocyte esterase detection by dipstick NEGATIVE NEGATIVE Automated urine sediment erythrocyte count by microscopy (number/high power field) NONE NRG Automated urine sediment leukocyte count by microscopy (number/high power field ) NONE NRG Bacteria detection in urine sediment by light microscopy NEGATIVE NRG Squamous epithelial cells detection in urine sediment by light microscopy RARE NRG Crystals detection in urine sediment by light microscopy NONE NRG Casts detection in urine sediment by light microscopy NONE NRG Mucus detection in urine sediment by light microscopy NEGATIVE NRG Complete urinalysis with reflex to culture NO NRG Comprehensive metabolic panel - 01/20/17 14:53 Serum or plasma sodium measurement (moles/volume) 140 mmol/L 135-145 Serum or plasma potassium measurement (moles/volume) 3.0 mmol/L 3.6-5.0 Serum or plasma chloride measurement (moles/volume) 102 mmol/L 98-107 Carbon dioxide 25 mmol/L 21-32 Serum or plasma anion gap determination (moles/volume) 13 mmol/L 5-14 Serum or plasma urea nitrogen measurement (mass/volume) 14 mg/dL 7-18 Serum or plasma creatinine measurement (mass/volume) 1.40 mg/dL 0.60-1.30 Serum or plasma urea nitrogen/creatinine mass ratio 10 NRG Serum or plasma creatinine measurement with calculation of estimated glomerular filtration rate > NRG Serum or plasma glucose measurement (mass/volume) 126 mg/dL 70-105 Serum or plasma calcium measurement (mass/volume) 9.7 mg/dL 8.5-10.1 Serum or plasma total bilirubin measurement (mass/volume) 0.9 mg/dL 0.1-1.0 Serum or plasma alkaline phosphatase measurement (enzymatic activity/volume) 80 U/L 40-136 Serum or plasma aspartate aminotransferase measurement (enzymatic activity/ volume) 17 U/L 5-34 Serum or plasma alanine aminotransferase measurement (enzymatic activity/volume ) 27 U/L 0-55 Serum or plasma protein measurement (mass/volume) 7.2 g/dL 6.4-8.2 Serum or plasma albumin measurement (mass/volume) 3.9 g/dL 3.2-4.5 CBC - 08/11/17 11:30 WHITE BLOOD CELL COUNT 9.5 Thousand/uL 3.8-10.8 RED BLOOD CELL COUNT 5.80 Million/uL 4.20-5.80 HEMOGLOBIN 13.9 g/dL 13.2-17.1 HEMATOCRIT 43.1 % 38.5-50.0 MCV 74.3 fL 80.0-100.0 MCH 24.0 pg 27.0-33.0 MCHC 32.3 g/dL 32.0-36.0 RDW 16.6 % 11.0-15.0 PLATELET COUNT 387 Thousand/uL 140-400 MPV 9.0 fL 7.5-12.5 ABSOLUTE NEUTROPHILS 5330 cells/uL 1113-4434 ABSOLUTE LYMPHOCYTES 3468 cells/uL 850-3900 ABSOLUTE MONOCYTES 551 cells/uL 200-950 ABSOLUTE EOSINOPHILS 105 cells/uL 15-500 ABSOLUTE BASOPHILS 48 cells/uL 0-200 NEUTROPHILS 56.1 % NRG LYMPHOCYTES 36.5 % NRG MONOCYTES 5.8 % NRG EOSINOPHILS 1.1 % NRG BASOPHILS 0.5 % NRG ANEMIA PANEL - 08/25/17 09:45 IRON, TOTAL 52 mcg/dL 50-180 FERRITIN 161 ng/mL 20-380 IRON BINDING CAPACITY 283 mcg/dL (calc) 250-425 % SATURATION 18 % (calc) 15-60 Encounters ACCT No. Visit Date/Time Discharge Status Pt. Type Provider Facility Loc./Unit Complaint [id number] 01/19/2017 12:00:00 01/20/2017 16:55:00 DIS Inpatient TENZIN VILLASEÑOR, RODRI Quispe [facility] 4TH SI, AUDIO HALLUCINATIONS , PSCHOSIS [id number] 10/03/2016 16:59:00 10/03/2016 23:59:59 CLS Outpatient SAM BECKFORD, NAZIA Quispe [facility] RAD M54.2,M79.1 [id number] 05/22/2016 07:53:00 05/22/2016 23:59:59 CLS Outpatient LILLY CORTES APRN [facility] RAD ACUTE RT FLANK PAIN, ACUTE LT LOWER QUAD PAIN [id number] 02/06/2016 12:00:00 02/06/2016 14:30:00 DIS Outpatient ORTIZ MARR DO [facility] SDC GERD [id number] 01/31/2016 05:48:00 01/31/2016 12:30:00 DIS Outpatient MARR ORTIZ BENOIT [facility] PREOP GERD [id number] 01/04/2016 15:51:00 01/04/2016 20:12:00 DIS Emergency PETE LANDRY [facility] ER NAUSEA [id number] 12/17/2015 18:43:00 12/17/2015 21:22:00 DIS Emergency WHITNEY CUNNINGHAM MD [facility] ER BACK PAIN [id number] 12/08/2015 15:42:00 12/08/2015 23:59:59 CLS Outpatient TELLO EDGAR MARKET SALES MANAGER [facility] RAD PAIN OF RT CALF [id number] 08/13/2015 11:00:00 08/13/2015 13:50:00 DIS Emergency DOMO KAT MD [facility] ER MULTIPLE COMPLAINTS [id number] 07/23/2016 08:40:00 Document Registration [id number] 10/13/2017 11:00:00 10/13/2017 23:59:59 CLS Outpatient PAULO VILLASEÑOR, EDGARDO [facility] [id number] 08/25/2017 09:00:00 Document Registration [id number] 08/11/2017 11:00:00 Document Registration [id number] 06/08/2016 08:35:00 Document Registration
--- NOTE | 2017-11-21 18:05 | ED General ---
General Chief Complaint: Respiratory Problems Stated Complaint: BACK PAIN;TROUBLE BREATHING Nursing Triage Note: PT TO ED WITH , STATES THEY WERE AT THE STORE AND HE CAME TO HER "PANTING" AND WAS DIAPHORETIC, PT WAS C/O BACK PAIN AND SOB. Nursing Sepsis Screen: No Definite Risk Source of Information: Patient Exam Limitations: No Limitations (DOMO KAT MD) History of Present Illness Date Seen by Provider: Nov 21, 2017 Time Seen by Provider: 18:00 Initial Comments tHE patient is a 52-year-old black male. He reported that he had gone to [employer] with his family. He began to walk in the store and felt as if he might pass out. He was quite lightheaded. He denied any chest pain. He had not been working in the heat. He is diabetic but takes only metformin. He also takes antihypertensives which is to say lisinopril. He has only been recently discovered to have diabetes. He has not yet had a follow-up hemoglobin A1c. He was apparently somewhat diaphoretic at that time. Timing/Duration: 1 Hour Severity: Mild Associated Systoms: Other (lightheadedness) (DOMO KAT MD) Allergies and Home Medications Allergies Coded Allergies: Penicillins (Verified Allergy, Unknown, 01/31/16) Home Medications Ascorbate Calcium 500 Mg Tablet, 500 MG PO HS, (Reported) Febuxostat 80 Mg Tablet, 80 MG PO DAILY, (Reported) LAST FILLED 09/16/16 #30 Lisinopril 10 Mg Tablet, 10 MG PO DAILY, (Reported) Mag Hydrox/Al Hydrox/Simeth 30 Ml Oral.susp, 30 ML PO HS PRN for INDIGESTION, ( Reported) Multivitamin 1 Each Tablet, 1 TAB PO HS, (Reported) Pantoprazole Sodium 40 Mg Tablet.dr, 40 MG PO DAILY, (Reported) LAST FILLED 12/04/16 #30 Potassium Chloride 10 Meq Tablet.er, 10 MEQ PO DAILY, (Reported) LAST FILLED 09/16/16 #30 Pravastatin Sodium 10 Mg Tablet, 10 MG PO DAILY, (Reported) Sucralfate 1 Gm Tablet, 1 GM PO QID PRN for INDIGESTION, (Reported) LAST FILLED 09/16/16 #40 Vitamin B Complex 1 Each Tablet, 1 TAB PO HS, (Reported) Patient Home Medication List Home Medication List Reviewed: Yes (ASHLEY BROCK APRN) Review of Systems Constitutional: see HPI EENTM: no symptoms reported Respiratory: no symptoms reported Cardiovascular: no symptoms reported Gastrointestinal: no symptoms reported Genitourinary: no symptoms reported Musculoskeletal: no symptoms reported Skin: no symptoms reported Psychiatric/Neurological: No Symptoms Reported Hematologic/Lymphatic: No Symptoms Reported Immunological/Allergic: no symptoms reported (DOMO KAT MD) Past Crdaraz-Dzuijp-Zfdyfl Hx Patient Social History Type Used: Cigarettes, Smokeless Tobacco Former Smoker, Quit: Jan 19, 1990 Recent Foreign Travel: No Contact w/Someone Who Travel: No Recent Infectious Disease Expo: No Recent Hopitalizations: No (DOMO KAT MD) Immunizations Up To Date Date of Pneumonia Vaccine: Aug 08, 2013 (DOMO KAT MD) Seasonal Allergies Seasonal Allergies: No (DOMO KAT MD) Past Medical History Surgeries: Yes Gallbladder, Tonsillectomy Respiratory: Yes (SLEEP APNEA) Sleep Apnea Currently Using CPAP: Yes Currently Using BIPAP: No Cardiac: No High Cholesterol, Hypertension Neurological: No Reproductive Disorders: No Sexually Transmitted Disease: No HIV/AIDS: No Genitourinary: No Gastrointestinal: No Gastroesophageal Reflux Musculoskeletal: No Arthritis, Rheumatoid Arthritis, Gout Endocrine: Yes Lupus HEENT: No Cancer: No Psychosocial: Yes Depression Integumentary: No Blood Disorders: No (DOMO KAT MD) Family Medical History Diabetes mellitus 19 MOTHER PATERNAL GRANDFATHER Neoplasm 19 FATHER (THROAT CANCER-SMOKER) No Pertinent Family Hx (DOMO KAT MD) Physical Exam Vital Signs Vital Signs - First Documented 11/21/17 17:56 Pulse 110 Resp 20 B/P (MAP) 128/75 (92) Pulse Ox 95 O2 Delivery Room Air (ASHLEY BROCK APRN) Vital Signs Capillary Refill : Less Than 3 Seconds (DOMO KAT MD) General Appearance: Anxious, Mild Distress Eyes: Bilateral Eye Normal Inspection HEENT: Normal ENT Inspection Respiratory: Chest Non Tender, Lungs Clear, Normal Breath Sounds, No Accessory Muscle Use, No Respiratory Distress Cardiovascular: Regular Rate, Rhythm, No Edema, No Gallop, No JVD, No Murmur, Normal Peripheral Pulses Gastrointestinal: Normal Bowel Sounds, No Organomegaly, No Pulsatile Mass, Non Tender, Soft, Other (large belly with stria) Back: Normal Inspection, No CVA Tenderness, No Vertebral Tenderness Extremity: Normal Capillary Refill Neurologic/Psychiatric: Alert, Oriented x3, No Motor/Sensory Deficits, Normal 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, 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 Norm as Tested Skin: Normal Color, Warm/Dry Lymphatic: No Adenopathy (DOMO KAT MD) Progress/Results/Core Measures Suspected Sepsis Recent Fever Within 48 Hours: No Infection Criteria Present: None New/Unexplained Altered Menta: No Sepsis Screen: No Definite Risk SIRS Temperature: Pulse: 110 Respiratory Rate: 20 Blood Pressure 128 /75 Mean: 92 (DOMO KAT MD) Results/Orders Lab Results Laboratory Tests Test 11/21/17 17:59 11/21/17 18:47 11/21/17 20:19 Range/Units White Blood Count 16.9 H 15.2 H 4.3-11.0 10^3/uL Red Blood Count 5.59 4.88 4.35-5.85 10^6/uL Hemoglobin 13.5 12.1 L 13.3-17.7 G/DL Hematocrit 41 36 L 40-54 % Mean Corpuscular Volume 73 L 74 L 80-99 FL Mean Corpuscular Hemoglobin 24 L 25 25-34 PG Mean Corpuscular Hemoglobin Concent 33 34 32-36 G/DL Red Cell Distribution Width 16.1 H 15.5 H 10.0-14.5 % Platelet Count 452 H 342 130-400 10^3/uL Mean Platelet Volume 9.3 9.0 7.4-10.4 FL Neutrophils (%) (Auto) 59 42-75 % Lymphocytes (%) (Auto) 33 12-44 % Monocytes (%) (Auto) 8 0-12 % Eosinophils (%) (Auto) 0 0-10 % Basophils (%) (Auto) 0 0-10 % Neutrophils # (Auto) 9.9 H 1.8-7.8 X 10^3 Lymphocytes # (Auto) 5.5 H 1.0-4.0 X 10^3 Monocytes # (Auto) 1.4 H 0.0-1.0 X 10^3 Eosinophils # (Auto) 0.1 0.0-0.3 10^3/uL Basophils # (Auto) 0.0 0.0-0.1 10^3/uL Neutrophils % (Manual) 57 % Lymphocytes % (Manual) 38 % Monocytes % (Manual) 5 % Eosinophils % (Manual) 0 % Basophils % (Manual) 0 % Band Neutrophils 0 % Blood Morphology Comment NORMAL D-Dimer 1.83 H 0.00-0.49 UG/ML Sodium Level 142 135-145 MMOL/L Potassium Level 2.9 L 3.6-5.0 MMOL/L Chloride Level 104 98-107 MMOL/L Carbon Dioxide Level 19 L 21-32 MMOL/L Anion Gap 19 H 5-14 MMOL/L Blood Urea Nitrogen 26 H 7-18 MG/DL Creatinine 2.03 H 0.60-1.30 MG/DL Estimat Glomerular Filtration Rate 42 BUN/Creatinine Ratio 13 Glucose Level 189 H 70-105 MG/DL Calcium Level 10.1 8.5-10.1 MG/DL Magnesium Level 1.8 1.8-2.4 MG/DL Total Bilirubin 0.7 0.1-1.0 MG/DL Aspartate Amino Transf (AST/SGOT) 14 5-34 U/L Alanine Aminotransferase (ALT/SGPT) 26 0-55 U/L Alkaline Phosphatase 69 40-136 U/L Troponin I < 0.30 <0.30 NG/ML B-Type Natriuretic Peptide < 10.0 <100.0 PG/ML Total Protein 7.7 6.4-8.2 GM/DL Albumin 4.1 3.2-4.5 GM/DL Urine Color YELLOW Urine Clarity CLEAR Urine pH 5 5-9 Urine Specific [place] 1.020 1.016-1.022 Urine Protein 3+ H NEGATIVE Urine Glucose (UA) NEGATIVE NEGATIVE Urine Ketones NEGATIVE NEGATIVE Urine Nitrite NEGATIVE NEGATIVE Urine Bilirubin NEGATIVE NEGATIVE Urine Urobilinogen NORMAL NORMAL MG/DL Urine Leukocyte Esterase 1+ H NEGATIVE Urine RBC (Auto) NEGATIVE NEGATIVE Urine RBC NONE /HPF Urine WBC 2-5 /HPF Urine Crystals NONE /LPF Urine Bacteria FEW H /HPF Urine Casts PRESENT /LPF Urine Hyaline Casts 25-50 H /LPF Urine Mucus MODERATE H /LPF Urine Culture Indicated NO (ASHLEY BROCK APRN) My Orders Orders - ASHLEY BROCK APRN BNP (11/21/17 18:33) Fibrin Degradation Products (11/21/17 18:33) Ns Iv 1000 Ml (Sodium Chloride 0.9%) (11/21/17 18:45) Potassium Chloride (Tablet) (K Dur Table (11/21/17 18:45) Magnesium (11/21/17 18:38) Us Venous Lower Ext Michael (11/21/17 19:10) Cbc No Diff (11/21/17 20:09) (ASHLEY BROCK APRN) Medications Given in ED Current Medications Medications Dose Ordered Sig/Rosa M Route Start Time Stop Time Status Last Admin Dose Admin Potassium Chloride 40 meq ONCE ONCE PO 11/21/17 18:45 11/21/17 18:46 DC 11/21/17 18:45 40 MEQ (ASHLEY BROCK APRN) Vital Signs/I&O 11/21/17 17:56 Pulse 110 Resp 20 B/P (MAP) 128/75 (92) Pulse Ox 95 O2 Delivery Room Air (ASHLEY BROCK APRN) Vital Signs/I&O Capillary Refill : Less Than 3 Seconds (DOMO KAT MD) Blood Pressure Mean: 92 Diagnostic Imaging Diagonstic Imaging: Xray Plain Films/CT/US/NM/MRI: chest Comments NAME: JAZLYN BARRIGA [facility] REC#: [id number] PT STATUS: REG ER : 1965 PHYSICIAN: DOMO KAT MD ADMIT DATE: 11/21/17/ER Draft Date of Exam:11/21/17 CHEST 1 VIEW, AP/PA ONLY INDICATION: Presyncope. COMPARISON: 01/04/2016. FINDINGS: Upright portable view of the chest is obtained. Heart size is normal. The pulmonary vessels appear unremarkable. Elevation of right hemidiaphragm is unchanged. The lungs are otherwise clear. IMPRESSION: Negative chest. Dictated on workstation # [id number] Dict: 11/21/17 1855 Trans: 11/21/17 [id number] Interpreted by: ANDREW HENSLEY DO Electronically signed by: (ASHLEY BROCK APRN) Departure Communication (Admissions) 191- I have reviewed his labs and discussed with the patient. He states that he was going to [employer] with his when he got severe pain in his lower middle back, got very sweaty and states "I was just panting". At this time he feels back to normal. He denies any shortness of breath chest or back pain. He does report some swelling to the right lower extremity. His little tachycardic at 110 sinus. Blood pressure spine. Is 95% on room air. He is a fairly new diagnosis of diabetes and he is a chronic renal insufficiency patient. Ill order US venous lower extremity bilateral since I do have concern for PE but renal failure precludes him from getting a ct angiogram chest. 2130-he is asymptomatic at this time. Bilateral lower extremity venous ultrasound negative for DVT.He is no longer tachycardic. Oxygen saturation 93% on room air and actually increases to 98% on room air with ambulation as the tech check this while walking down the hallway. discussed with Dr. Belcher and he agrees to discharge to home with return precautions (ASHLEY BROCK APRN) Impression Primary Impression: Low back pain Additional Impression: Tachycardia Disposition: 01 HOME, SELF-CARE Condition: Stable Departure-Patient Inst. Decision time for Depature: 21:34 (ASHLEY BROCK APRN) Referrals: EDGARDO BATES MD (PCP/Family) Primary Care Physician Patient Instructions: NO INSTRUCTIONS GIVEN Add. Discharge Instructions: 1. Follow-up with her doctor next week 2. Return to ER for any shortness of breath, chest or upper back pain, fevers or other concerns.All discharge instructions reviewed with patient and/or family. Voiced understanding. DOMO KAT MD Nov 21, 2017 18:05 ASHLEY BROCK APRN Nov 21, 2017 19:02
[2017-11-21 18:13] LABS: BASOPHILS % (AUTO) 0 % (0-10); EOSINOPHILS # (AUTO) 0.1 10^3/uL (0.0-0.3); EOSINOPHILS % (AUTO) 0 % (0-10); HEMATOCRIT 41 % (40-54); HEMOGLOBIN 13.5 G/DL (13.3-17.7); LYMPHOCYTES # (AUTO) 5.5 X 10^3 (1.0-4.0); LYMPHOCYTES % (AUTO) 33 % (12-44); MEAN CORPUSCULAR HEMOGLOBIN 24 PG (25-34); MEAN CORPUSCULAR HGB CONC 33 G/DL (32-36); MEAN CORPUSCULAR VOLUME 73 FL (80-99); MEAN PLATELET VOLUME 9.3 FL (7.4-10.4); MONOCYTES # (AUTO) 1.4 X 10^3 (0.0-1.0); MONOCYTES % (AUTO) 8 % (0-12); NEUTROPHILS # (AUTO) 9.9 X 10^3 (1.8-7.8); NEUTROPHILS % (AUTO) 59 % (42-75); PLATELET COUNT 452 10^3/uL (130-400); RED BLOOD COUNT 5.59 10^6/uL (4.35-5.85); RED CELL DISTRIBUTION WIDTH 16.1 % (10.0-14.5); WHITE BLOOD COUNT 16.9 10^3/uL (4.3-11.0)
[2017-11-21 18:35] LABS: ALANINE AMINOTRANSFERASE 26 U/L (0-55); ALBUMIN 4.1 GM/DL (3.2-4.5); ALKALINE PHOSPHATASE 69 U/L (40-136); BILIRUBIN,TOTAL 0.7 MG/DL (0.1-1.0); BUN/CREATININE RATIO 13; CALCIUM 10.1 MG/DL (8.5-10.1); CARBON DIOXIDE 19 MMOL/L (21-32); CHLORIDE 104 MMOL/L (98-107); CREATININE SERUM 2.03 MG/DL (0.60-1.30); GFR ESTIMATED 42; GLUCOSE 189 MG/DL (70-105); POTASSIUM 2.9 MMOL/L (3.6-5.0); SODIUM 142 MMOL/L (135-145); TOTAL PROTEIN 7.7 GM/DL (6.4-8.2)
[2017-11-21 18:45] LABS: BAND NEUTROPHILS 0 %; LYMPHOCYTES % (MANUAL) 38 %; NEUTROPHILS % (MANUAL) 57 %
[2017-11-21] MEDS ORDERED: KCL 20 MEQ TAB (K-DUR) PO ONE (18:45)
[2017-11-21] MEDS ORDERED: NS IV 1000 ML 1,000 ML IV SCH (18:45)
[2017-11-21 18:46] LABS: BASOPHILS % (MANUAL) 0 %; EOSINOPHILS % (MANUAL) 0 %; MONOCYTES % (MANUAL) 5 %; RBC MORPH NORMAL
--- NOTE | 2017-11-21 18:59 | Diagnostic Imaging Report ---
INDICATION: Presyncope. COMPARISON: 01/04/2016. FINDINGS: Upright portable view of the chest is obtained. Heart size is normal. The pulmonary vessels appear unremarkable. Elevation of right hemidiaphragm is unchanged. The lungs are otherwise clear. IMPRESSION: Negative chest. Dictated by: Dictated on workstation # [id number]
[2017-11-21 19:06] LABS: BILIRUBIN,URINE NEGATIVE (NEGATIVE); CLARITY,URINE CLEAR; COLOR,URINE YELLOW; GLUCOSE, URINE (UA) NEGATIVE (NEGATIVE); KETONES,URINE NEGATIVE (NEGATIVE); LEUKOCYTE ESTERASE ,URINE 1+ (NEGATIVE); NITRITE,URINE NEGATIVE (NEGATIVE); PH,URINE 5 (5-9); PROTEIN,URINE 3+ (NEGATIVE); UROBILINOGEN,URINE NORMAL (NORMAL)
[2017-11-21 19:22] LABS: BACTERIA,URINE FEW /HPF
[2017-11-21 19:23] LABS: HYALINE CASTS, URINE 25-50 /LPF
[2017-11-21 20:24] LABS: HEMOGLOBIN 12.1 G/DL (13.3-17.7); RED BLOOD COUNT 4.88 10^6/uL (4.35-5.85); RED CELL DISTRIBUTION WIDTH 15.5 % (10.0-14.5); WHITE BLOOD COUNT 15.2 10^3/uL (4.3-11.0)
--- NOTE | 2017-11-21 21:14 | Diagnostic Imaging Report ---
INDICATION: Elevated d-dimer. Bilateral leg pain. FINDINGS: There is normal color flow enhancement with Doppler sampling throughout the lower extremities bilaterally. Venous system appears widely patent. Calf compression shows normal augmentation of flow at the popliteal level bilaterally. No evidence of popliteal cyst. IMPRESSION: No evidence of lower extremity venous thrombosis. Dictated by: Dictated on workstation # [id number]
[2017-11-21 21:48] VITALS: BP 127/79
== END 2017-11-21 21:48 | disposition home or self-care (01) ==
LOC: EDUNIT# 17:31 → ER 17:33
DX: M54.5 Low back pain (principal); R00.0 Tachycardia, unspecified; E11.9 Type 2 diabetes mellitus without complications; G47.30 Sleep apnea, unspecified; E78.00 Pure hypercholesterolemia, unspecified; I10 Essential (primary) hypertension; K21.9 Gastro-esophageal reflux disease without esophagitis; M10.9 Gout, unspecified; M06.9 Rheumatoid arthritis, unspecified; F32.9 Major depressive disorder, single episode, unspecified; Z88.0 Allergy status to penicillin; Z79.84 Long term (current) use of oral hypoglycemic drugs; Z80.0 Family history of malignant neoplasm of digestive organs; Z87.891 Personal history of nicotine dependence; Z90.89 Acquired absence of other organs
CPT/HCPCS: 36415; 71045; 80053; 81000; 83735; 83880; 84484; 85007; 85027; 85379; 93005; 93970; 96360

== ENCOUNTER 2018-06-01 09:37 | Observation (INO) | payer MEDICARE, OTHER ==
[2018-06-01] VITALS (7 sets, daily range): BP systolic 124–160; BP diastolic 78–101
[~2018-06-01] VITALS: Ht 157.5 cm; Wt 136.1 kg
[2018-06-01 09:54] LABS: BASOPHILS % (AUTO) 0 % (0-10); EOSINOPHILS # (AUTO) 0.2 10^3/uL (0.0-0.3); EOSINOPHILS % (AUTO) 2 % (0-10); HEMATOCRIT 35 % (40-54); HEMOGLOBIN 11.3 G/DL (13.3-17.7); LYMPHOCYTES # (AUTO) 3.3 X 10^3 (1.0-4.0); LYMPHOCYTES % (AUTO) 34 % (12-44); MEAN CORPUSCULAR HEMOGLOBIN 23 PG (25-34); MEAN CORPUSCULAR HGB CONC 32 G/DL (32-36); MEAN CORPUSCULAR VOLUME 72 FL (80-99); MEAN PLATELET VOLUME 8.9 FL (7.4-10.4); MONOCYTES # (AUTO) 0.5 X 10^3 (0.0-1.0); MONOCYTES % (AUTO) 5 % (0-12); NEUTROPHILS # (AUTO) 5.9 X 10^3 (1.8-7.8); NEUTROPHILS % (AUTO) 59 % (42-75); PLATELET COUNT 549 10^3/uL (130-400); RED BLOOD COUNT 4.87 10^6/uL (4.35-5.85); RED CELL DISTRIBUTION WIDTH 15.7 % (10.0-14.5)
--- OUTSIDE RECORDS SUMMARY | 2018-06-01 09:54 | XMS REPORT ---
Author Author DHIRAJ DOMINGO [facility] Address [address] [place] [address] Phone Unavailable Care Team Providers Care Ice Cream Man Name Role Phone JOSE LDHIRAJ Unavailable Unavailable PROBLEMS Type Condition ICD9-CM Code [id number] Code Onset Dates Condition Status SNOMED Code Problem Type 2 diabetes mellitus without complication, without long-term current use of insulin E11.9 Active 887652850 Problem Exophthalmia H05.20 Active 18770302 Problem Vertigo R42 Active 846645085 Problem Cellulitis of hand, right L03.113 Active [id number] Problem Severe episode of recurrent major depressive disorder, with psychotic features F33.3 Active 06171746 Problem Hammertoe of right foot M20.41 Active 189795853 Problem Hammertoe of left foot M20.42 Active 564268211 Problem History of gout Z87.39 Active 591757565 Problem Systemic lupus erythematosus, unspecified SLE type, unspecified organ involvement status M32.9 Active 19935141 Problem Essential hypertension I10 Active 60670649 Problem Mixed hyperlipidemia E78.2 Active 563847678 Problem Gastroesophageal reflux disease without esophagitis K21.9 Active 695932026 Problem Arthritis M19.90 Active 5483473 Problem Gingivitis K05.10 Active 34697907 Problem Dysthymic disorder F34.1 Active 83795600 Problem Acute left-sided low back pain with left-sided sciatica M54.42 Active 496781775 Problem Generalized anxiety disorder F41.1 Active 09111560 Problem Acute gout of right ankle, 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 Active 792192081 ALLERGIES Substance Reaction Event Type Date Status Penicillin V Potassium swelling, rash Drug Allergy Feb, Active ENCOUNTERS Encounter Location Date Diagnosis [facility] [address] [facility] [place] 2[id number] [address] Mar, [facility] [address] [facility] [id number] [id number] 21 Sep, 2018 Dental examination Z01.20 [facility] [address], [place] [address] 15 Feb, 2018 Gouty tophi M1A.9XX1 and Cellulitis of hand, right L03.113 [facility] [address] [place] [id number] [place] [address]56- [address] 15 Jan, 2018 Severe episode of recurrent major depressive disorder, with psychotic features F33.3 and BMI 45.0-49.9, adult Z68.42 [place] [address] [place] [id number] [place] [address] 69466- 6950 12 Dec, 2017 Severe episode of recurrent major depressive disorder, with psychotic features F33.3 and BMI 45.0-49.9, adult Z68.42 [place] [address] [place] [id number] [place] [address] 70534- 7297 Dec, Onychomycosis B35.1 ; Hammertoe of left foot M20.42 ; Hammertoe of right foot M20.41 and Type 2 diabetes mellitus without complication , without long-term current use of insulin E11.9 [place] [id number] [place] [address] 26302- 3977 13 Nov, 2017 Severe episode of recurrent major depressive disorder, with psychotic features F33.3 and BMI 45.0-49.9, adult Z68.42 [place] [id number] [place] [address] 20349- 7530 08 Nov, 2017 Medicare annual wellness visit, initial Z00.00 ; Type 2 diabetes mellitus without complication, without long-term current use of insulin E11.9 ; Generalized anxiety disorder F41.1 ; Essential hypertension I10 ; Mixed hyperlipidemia E78.2 ; Arthritis M19.90 ; Dysthymic disorder F34.1 ; Systemic lupus erythematosus, unspecified SLE type, unspecified organ involvement status M32.9 ; History of gout Z87.39 and Encounter for immunization Z23 [place] [id number] [place] [address] 25414- 9855 October, [address] [place] [address] October, [facility] [address] [place] [id number] [place] [phone] Sep, Dental examination Z01.20 [place] [address] [place] [id number] [place] [address] 01863- 2186 Sep, [place] [address] [address] Aug, Dental examination Z01.20 [place] [address] [place] [id number] [place] [address] 54542- 0115 Aug, [place] [address] 16[address]1 Aug, [facility] [place] [address] [place] [id number] [place] [address]99 [address]5233 Aug, Aphthous stomatitis K12.0 and BMI 45.0-49.9, adult Z68.42 [place] [address] [place] [id number] [place] [address] 15000- 2650 Aug, [place] [address] 7[address]66- 65[address] Aug, Vertigo R42 ; Impacted cerumen of both ears H61.23 ; Abnormal RBC indices R71.8 ; Exophthalmia H05.20 ; Elevated glucose R73.09 ; Type 2 diabetes mellitus without complication, without long-term current use of insulin E11.9 and BMI 45.0-49.9, adult Z68.42 [place] [address] [place] [id number] [place] [address] 07630- 4998 Jul, Dizziness R42 and BMI 45.0-49.9, adult Z68.42 [facility] [place] 2[place] [address] [place] [id number] [place] [address] 96513 -5753 Jun, Vertigo R42 and BMI 45.0-49.9, adult Z68.42 [facility] [address] [id number] [place] [address] [id number] May, Dental caries K02.9 [facility] [address] [place] [address] [phone] May, Encounter for dental exam and cleaning w/o abnormal findings Z01.20 [facility] [address] [place] [address] 74909- 2446 07 Apr, 2017 Acute non-recurrent maxillary sinusitis J01.00 [facility] [address] [place] [id number] [place] [address] 27326- 9736 09 Mar, 2017 [facility] [address] [id number] [place] [address] 804603- 4487 11 Feb, 2017 Acute gout of right ankle, 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 [facility] [address] [place] [id number] [place] [address] [phone]- 2140 Feb, [facility] [address] [id number] [place] [address] [phone] Jan, Dental examination Z01.20 [facility] [address] [address] [id number] [place] [address] [id number] Jan, Encounter for dental examination and cleaning without abnormal findings Z01.20 [facility] [address] [place] [id number] [place] [address] [id number] Jan, Dental examination Z01.20 [facility] [address] [place] [address] 49834- 6486 Jan, Acute non-recurrent frontal sinusitis J01.10 ; Essential hypertension I10 ; Mixed hyperlipidemia E78.2 ; Sore throat J02.9 and Gastroesophageal reflux disease without esophagitis K21.9 [facility] [address] [place] [id number] [place] [address] [id number] Dec, [facility] [address] [place] [address] [id number] -[phone] Dec, Other secondary acute gout of multiple sites M10.49 and Acute upper respiratory infection, unspecified J06.9 [facility] [address] [place] [id number] [place] [address] 76025 -2066 Nov, Sore throat J02.9 ; Acute nasopharyngitis (common cold) J00 and Acute left-sided low back pain with left-sided sciatica M54.42 [facility] [address] [address] [id number] [place] [address] [id number] October, Encounter for dental examination and cleaning without abnormal findings Z01.20 [facility] [address] [address] October, Acute upper respiratory infection, unspecified J06.9 and Sore throat J02.9 [facility] [address] [id number] Sep, Encounter for dental examination and cleaning without abnormal findings Z01.20 [facility] [address] 49464- 7400 Sep, Gastroesophageal reflux disease without esophagitis K21.9 [facility] [address] 41041 [address] Aug, Sore throat J02.9 and Acute idiopathic gout of right wrist M10.031 [facility] [address] [id number] [place] [address] [phone] Jul, Encounter for dental examination and cleaning without abnormal findings Z01.20 [facility] [address] 59713- 1069 Jun, [facility] [address] 87754- 7250 Jun, Lower abdominal pain R10.30 [facility] [address] [id number] Jun, Encounter for dental examination and cleaning without abnormal findings Z01.20 [facility] [address] 47575- 9266 May, Chronic kidney disease, unspecified stage N18.9 and Mouth ulcer K12.1 [place] [address] 22626- 9079 May, Chronic kidney disease, unspecified stage N18.9 [place] [address] 72557- 9076 May, Encounter for dental examination and cleaning without abnormal findings Z01.20 [place] [address] 83369- 5970 May, Encounter for dental examination and cleaning without abnormal findings Z01.20 [place] [address] 11171- 2052 16 May, 2016 Hypokalemia E87.6 ; Essential hypertension I10 ; Gastroesophageal reflux disease without esophagitis K21.9 and Right-sided thoracic back pain, unspecified chronicity M54.6 [facility] [place] [address] 56296 -9844 May, Oral candidiasis B37.0 [place] [address] 91554- 5545 02 May, 2016 [place] [address] 56708- 4460 May, Cracked tooth K03.81 and Retained dental root K08.3 [place] [address] 81614- 1077 May, Dental examination Z01.20 [facility] [address] 9[address]14 [address]2765 28 Apr, 2016 Acute right flank pain R10.9 and Acute left lower quadrant pain R10.32 [place] [address] 92206- 6766 08 Apr, 2016 Bronchitis J40 [place] [address] 48868- 5586 13 Mar, 2016 Dental examination Z01.20 [place] [address] [place] [address]- [address] 07 Mar, 2016 Dysthymic disorder F34.1 [facility] [address] [place] [id number] [place] [address] 21295 -8533 05 Mar, 2016 Gingivitis K05.10 and Torticollis M43.6 [place] [address] [place] [id number] [place] [address] 48829- 9560 08 Feb, 2016 Dysthymic disorder F34.1 [facility] [address] [place] [id number] [place] [address] 04535 -1152 07 Feb, 2016 Lymph nodes enlarged R59.9 [facility] [place] [address] [place] [id number] [place] [address] 87792 -5125 Jan, Left otitis media, unspecified chronicity, unspecified otitis media type H66.92 [place] [address] [place] [id number] [place] [address] 63746- 6980 Jan, Dysthymic disorder F34.1 and Generalized anxiety disorder F41.1 [place] [address] [place] [id number] [place] [address] 90239- 8739 Dec, Dental examination Z01.20 [place] [address] [place] [id number] [place] [address] 55082- 9083 Dec, Dysthymic disorder F34.1 and Generalized anxiety disorder F41.1 [place] [address] [place] [id number] [place] [address] 78822- 3483 Dec, Gastroesophageal reflux disease without esophagitis K21.9 and Arthritis M19.90 [place] [address] [place] [id number] [place] [address] 40004- 3603 Dec, Dysthymic disorder F34.1 and Generalized anxiety disorder F41.1 [facility] [address] [place] [id number] [place] [address] 20351 -7266 Dec, Gingivitis K05.10 [place] [address] [place] [id number] [place] [address] 42046- 6759 Dec, Essential hypertension I10 ; Epigastric pain R10.13 ; Mixed hyperlipidemia E78.2 ; Proptosis H05.20 and Gastroesophageal reflux disease without esophagitis K21.9 [place] [address] [place] [id number] [place] [address] 69563- 0824 Dec, [place] [address] 33792- 9787 30 Nov, 2015 Dysthymic disorder F34.1 [facility] [place] [address] 44325 -6738 Nov, Epigastric pain R10.13 and Gastroesophageal reflux disease , esophagitis presence not specified K21.9 [place] [address] [place] [id number] [place] [address] 72588- 0416 Nov, Depression, unspecified depression type F32.9 [place] [address] 17708- 1681 Nov, Essential hypertension I10 ; Mixed hyperlipidemia E78.2 ; Proptosis H05.20 ; Gastroesophageal reflux disease without esophagitis K21.9 and Depression, unspecified depression type F32.9 [place] [address] [place] [id number] [place] [address] 36097- 9753 Nov, [facility] [place] [address] [place] [id number] [place] [address] 19818 -2454 Nov, Sore in mouth K13.79 [facility] [place] [address] 66970 -3513 14 Nov, 2015 Left-sided chest wall pain R07.89 and Pain of right calf M79.661 [place] [address] 22994- 3911 06 Nov, 2015 Gastroesophageal reflux disease, esophagitis presence not specified K21.9 and Environmental allergies Z91.09 [facility] [address] [place] [id number] [place] [address] [phone] October, Dental examination Z01.20 IMMUNIZATIONS No Known Immunizations SOCIAL HISTORY Never Assessed REASON FOR VISIT Recare/Radiographs PLAN OF CARE Activity Details Follow Up arpit Reason:restore VITAL SIGNS MEDICATIONS Medication Instructions Dosage Frequency Start Date End Date Duration Status Protonix 40 mg Orally Once a day 1 tablet 24h 30 Active Blood Glucose Monitor System w/Device DX- E11.9 2 times a day test blood sugar 12h Aug, Active Eye Health Formula 180-15-5 MG Active Lisinopril 10 mg Orally Once a day 1 tablet 24h 30 days Active Metformin HCl 500 mg Orally Twice a day 1 tablet with meals 12h Aug, 30 day(s) Active Lisinopril 10 TAKE ONE TABLET BY MOUTH DAILY 30 Active Pravastatin Sodium 10 TAKE ONE TABLET BY MOUTH DAILY 90 Active Uloric 80 MG Orally Once a day 1 tablet 24h Active SudoGest 60 mg Orally every 6 hrs 1 tablet as needed 6h October, 7 days Active Blood Glucose Test Strip DX- E11.9 and lancets Fasting and 2 hours after 1 meal 3 times weekly. test blood sugar Aug, Active Bactrim DS 800-160 MG Orally Twice a day 1 tablet 12h Feb, 25 Feb 10 day(s) Active Pravastatin Sodium 10 mg Orally Once a day 1 tablet 24h 30 days Active Mens Multi Vitamin & Mineral Active Aripiprazole 15 MG Orally Once a day 1 tablet 24h 30 days Active Potassium Chloride ER 10 TAKE TWO TABLETS BY MOUTH DAILY WITH FOOD 30 Active RESULTS No Results PROCEDURES Procedure Date Ordered Result Body Site PERIODIC ORAL EXAMINATION Mar 13, 2018 BITEWINGS - FOUR FILMS Mar 13, 2018 Periodontal maint procedures Mar 13, 2018 INSTRUCTIONS MEDICATIONS ADMINISTERED No Known Medications MEDICAL (GENERAL) HISTORY Type Description Date Medical History pneumonia Medical History High Blood pressure Medical History bronchitis Medical History kidney disease Medical History anemia Medical History arthritis Medical History Gout Medical History diabetic Medical History seizure when child Surgical History Gallbladder Surgical History tonsillectomy Surgical History ENDO 02/2016 Hospitalization History chest pains 2013 Hospitalization History involuntary psych hold 01/20-01/24/17
--- OUTSIDE RECORDS SUMMARY | 2018-06-01 09:54 | XMS REPORT ---
Author Author CODIESTEVE Motta Organization [facility] Address [address] [place] [address] Care Team Providers Care Commercial Coordinator Name Role Phone STEVE MACKAY Unavailable PROBLEMS Type Condition ICD9-CM Code FHV80-FQ Code Onset Dates Condition Status SNOMED Code Problem Type 2 diabetes mellitus without complication, without long-term current use of insulin E11.9 Active 368690886 Problem Exophthalmia H05.20 Active 01512947 Problem Vertigo R42 Active 865145321 Problem Cellulitis of hand, right L03.113 Active [id number] Problem Severe episode of recurrent major depressive disorder, with psychotic features F33.3 Active 74397061 Problem Hammertoe of right foot M20.41 Active 316665442 Problem Hammertoe of left foot M20.42 Active 765500101 Problem History of gout Z87.39 Active 945476958 Problem Systemic lupus erythematosus, unspecified SLE type, unspecified organ involvement status M32.9 Active 17168392 Problem Essential hypertension I10 Active 78614189 Problem Mixed hyperlipidemia E78.2 Active 441880077 Problem Gastroesophageal reflux disease without esophagitis K21.9 Active 389589683 Problem Arthritis M19.90 Active 6247365 Problem Gingivitis K05.10 Active 11216287 Problem Dysthymic disorder F34.1 Active 93135640 Problem Acute left-sided low back pain with left-sided sciatica M54.42 Active 973000651 Problem Generalized anxiety disorder F41.1 Active 77083699 Problem Acute gout of right ankle, 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 Active [id number] ALLERGIES No Information ENCOUNTERS Encounter Location Date Diagnosis [facility] [address] [facility] [id number] [address] Jun, [facility] [address] [facility] [id number] [address] Mar, [id number] [place] [address] Mar, Closed fracture of right ankle, initial encounter S82.891A ; Type 2 diabetes mellitus without complication, without long-term current use of insulin E11.9 ; Onychomycosis B35.1 and Edema of foot R60.0 [facility] [id number] [place] [address] [id number] Feb, Dental examination Z01.20 [facility] [address] [address] Feb, Gouty tophi M1A.9XX1 and Cellulitis of hand, right L03.[address] [address] Jan, Severe episode of recurrent major depressive disorder, with psychotic features F33.3 and BMI 45.0-49.9, adult Z68.[address] [address] Dec, Severe episode of recurrent major depressive disorder, with psychotic features F33.3 and BMI 45.0-49.9, adult Z68.42 [place] [id number] [place] [address]190[address] 37[address] Dec, Onychomycosis B35.1 ; Hammertoe of left foot M20.42 ; Hammertoe of right foot M20.41 and Type 2 diabetes mellitus without complication , without long-term current use of insulin E11.9 [place] [id number] [place] [address] 95595- 6742 Nov, Severe episode of recurrent major depressive disorder, with psychotic features F33.3 and BMI 45.0-49.9, adult Z68.42 [place] [id number] [place] [address] 37086- 5692 Nov, Medicare annual wellness visit, initial Z00.00 ; Type 2 diabetes mellitus without complication, without long-term current use of insulin E11.9 ; Generalized anxiety disorder F41.1 ; Essential hypertension I10 ; Mixed hyperlipidemia E78.2 ; Arthritis M19.90 ; Dysthymic disorder F34.1 ; Systemic lupus erythematosus, unspecified SLE type, unspecified organ involvement status M32.9 ; History of gout Z87.39 and Encounter for immunization Z23 [facility] [id number] [place] [address] October, [facility] [id number] [place] [address] 21217- 8179 October, [facility] [id number] [place] [address] [id number] Sep, Dental examination Z01.20 [place] [address] [address] Sep, [place] [address] [place] [id number] [place] [address]- 89[address] Aug, Dental examination Z01.20 [facility] [id number] [place] [address] 50503- 4141 Aug, [facility] [id number] [place] [address] 58222- 1702 Aug, [facility] [id number] [place] [address] Aug, Aphthous stomatitis K12.0 and BMI 45.0-49.9, adult Z68.42 [facility] [id number] [place] [address] 51284- 4446 Aug, [facility] [id number] [place] [address] 99803- 4593 05 Aug, 2017 Vertigo R42 ; Impacted cerumen of both ears H61.23 ; Abnormal RBC indices R71.8 ; Exophthalmia H05.20 ; Elevated glucose R73.09 ; Type 2 diabetes mellitus without complication, without long-term current use of insulin E11.9 and BMI 45.0-49.9, adult Z68.42 [facility] [id number] [place] [address] 19 Jul, 2017 Dizziness R42 and BMI 45.0-49.9, adult Z68.42 [facility] [address] [address] [id number] Jun, Vertigo R42 and BMI 45.0-49.9, adult Z68.42 [facility] [address] [id number] May, Dental caries K02.9 [facility] [address] [id number] May, Encounter for dental exam and cleaning w/o abnormal findings Z01.20 [facility] [address] [id number]- 7677 07 Apr, 2017 Acute non-recurrent maxillary sinusitis J01.00 [facility] [address] 36032- 9[address] 09 Mar, 2017 [facility] [address] [address]881- 9[address] 11 Feb, 2017 Acute gout of right ankle, 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 [place] [id number] [place] [address] 97702- 4176 11 Feb, 2017 [facility] [id number] [place] [address] [id number] Jan, Dental examination Z01.20 [facility] [id number] [place] [address] [id number] Jan, Encounter for dental examination and cleaning without abnormal findings Z01.20 [facility] [id number] [place] [address] [id number] Jan, Dental examination Z01.20 [facility] [address] [address] Jan, Acute non-recurrent frontal sinusitis J01.10 ; Essential hypertension I10 ; Mixed hyperlipidemia E78.2 ; Sore throat J02.9 and Gastroesophageal reflux disease without esophagitis K21.9 [facility] [id number] [place] [address] [id number] Dec, [facility] [id number] [place] [address] 64630 -6227 Dec, Other secondary acute gout of multiple sites M10.49 and Acute upper respiratory infection, unspecified J06.9 [facility] [address] [address] Nov, Sore throat J02.9 ; Acute nasopharyngitis (common cold) J00 and Acute left-sided low back pain with left-sided sciatica M54.42 [facility] [address] [id number] October, Encounter for dental examination and cleaning without abnormal findings Z01.20 [facility] [address] [address] October, Acute upper respiratory infection, unspecified J06.9 and Sore throat J02.9 [facility] [id number] [place] [address] [id number] Sep, Encounter for dental examination and cleaning without abnormal findings Z01.20 [facility] [id number] [place] [address] 72060- 3289 Sep, Gastroesophageal reflux disease without esophagitis K21.9 [facility] [id number] [place] [address] 84033 -8648 Aug, Sore throat J02.9 and Acute idiopathic gout of right wrist M10.031 [facility] [id number] [place] [address] [id number] Jul, Encounter for dental examination and cleaning without abnormal findings Z01.20 [facility] [id number] [place] [address] [phone] 7766 Jun, [facility] [address] 6[address] Jun, Lower abdominal pain R10.30 [facility] [id number] [place] [address] [id number] Jun, Encounter for dental examination and cleaning without abnormal findings Z01.20 [facility] [id number] [place] [address] 21319- 1500 May, Chronic kidney disease, unspecified stage N18.9 and Mouth ulcer K12.1 [place] [id number] [place] [address] 74716- 3275 May, Chronic kidney disease, unspecified stage N18.9 [place] [address] 045350- 8431 May, Encounter for dental examination and cleaning without abnormal findings Z01.20 [place] [id number] [place] [address] 03128- 0708 May, Encounter for dental examination and cleaning without abnormal findings Z01.20 [place] [id number] [place] [address] 48656- 5489 May, Hypokalemia E87.6 ; Essential hypertension I10 ; Gastroesophageal reflux disease without esophagitis K21.9 and Right-sided thoracic back pain, unspecified chronicity M54.6 [facility] [id number] [place] [address] 60820 -5702 May, Oral candidiasis B37.0 [place] [id number] [place] [address] 83000- 9408 May, [place] [id number] [place] [address] 92282- 3657 May, Cracked tooth K03.81 and Retained dental root K08.3 [place] [id number] [place] [address] 39757- 2390 May, Dental examination Z01.20 [facility] [address] [address] Apr, Acute right flank pain R10.9 and Acute left lower quadrant pain R10.32 [place] [id number] [place] [address] 22597- 1354 08 Apr, 2016 Bronchitis J40 [facility] [id number] [place] [address] 53333- 1491 13 Mar, 2016 Dental examination Z01.20 [place] [address] 28020- 0014 07 Mar, 2016 Dysthymic disorder F34.1 [facility] [address] 376[address] 05 Mar, 2016 Gingivitis K05.10 and Torticollis M43.6 [place] [address] 55301- 3530 08 Feb, 2016 Dysthymic disorder F34.1 [facility] [place] [address] 18[address]4713 07 Feb, 2016 Lymph nodes enlarged R59.9 [facility] [place] [address] 95[address] -8445 Jan, Left otitis media, unspecified chronicity, unspecified otitis media type H66.92 [place] [id number] [place] [address] 30299- 8075 08 Jan, 2016 Dysthymic disorder F34.1 and Generalized anxiety disorder F41.1 [place] [id number] [place] [address] 18469- 7787 Dec, Dental examination Z01.20 [place] [address] 23355- 5282 21 Dec, 2015 Dysthymic disorder F34.1 and Generalized anxiety disorder F41.1 [place] [id number] [place] [address] 54482- 9351 18 Dec, 2015 Gastroesophageal reflux disease without esophagitis K21.9 and Arthritis M19.90 [place] [id number] [place] [address] 27728- 6517 Dec, Dysthymic disorder F34.1 and Generalized anxiety disorder F41.1 [facility] [place] [address] 33[address] 07 Dec, 2015 Gingivitis K05.10 [place] [address] 22229- 8757 Dec, Essential hypertension I10 ; Epigastric pain R10.13 ; Mixed hyperlipidemia E78.2 ; Proptosis H05.20 and Gastroesophageal reflux disease without esophagitis K21.9 [place] [address] 24086- 0364 05 Dec, 2015 [place] [address] 28705- 5806 30 Nov, 2015 Dysthymic disorder F34.1 [facility] [place] [address] 62[address] Nov, Epigastric pain R10.13 and Gastroesophageal reflux disease , esophagitis presence not specified K21.9 [place] [address] 97252- 3197 Nov, Depression, unspecified depression type F32.9 [place] [id number] [place] [address] 72170- 7051 Nov, Essential hypertension I10 ; Mixed hyperlipidemia E78.2 ; Proptosis H05.20 ; Gastroesophageal reflux disease without esophagitis K21.9 and Depression, unspecified depression type F32.9 [place] [id number] [place] [address] 87687- 1115 Nov, [facility] [place] [address] [address]46 -9055 Nov, Sore in mouth K13.79 [facility] [place] [address] 00897 -5414 14 Nov, 2015 Left-sided chest wall pain R07.89 and Pain of right calf M79.661 [facility] [address] [facility] [id number] [place] [id number] 06 Nov, 2015 Gastroesophageal reflux disease, esophagitis presence not specified K21.9 and Environmental allergies Z91.09 [facility] [address] [id number] [place] [id number] October, Dental examination Z01.20 IMMUNIZATIONS No Known Immunizations SOCIAL HISTORY Never Assessed REASON FOR VISIT 3 month f/u - [place] PLAN OF CARE Activity Details Follow Up 3 Months Reason: VITAL SIGNS Height 70 in 2018-04-03 Blood pressure systolic 156 mmHg 2018-04-03 Blood pressure diastolic 96 mmHg 2018-04-03 MEDICATIONS Unknown Medications RESULTS Name Result Date Reference Range Xray : Ankle, Right 3 views (IN HOUSE) 2018-04-03 PROCEDURES Procedure Date Ordered Result Body Site [facility] VISIT ESTABLISHED PATIENT Apr 03, 2018 DEBRIDE NAIL, 6 OR MORE Apr 03, 2018 X-RAY EXAM OF ANKLE Apr 03, 2018 INSTRUCTIONS MEDICATIONS ADMINISTERED No Known Medications [...]
--- OUTSIDE RECORDS SUMMARY | 2018-06-01 09:55 | XMS REPORT ---
Author Author JOSUE YVONNE Organization [facility] Address [address] [place] [address] Care Team Providers Care Paper Goods Machine Set Up Operator Name Role Phone YVONNE SALAS Unavailable PROBLEMS Type Condition ICD9-CM Code KCR10-SF Code Onset Dates Condition Status SNOMED Code Problem Type 2 diabetes mellitus without complication, without long-term current use of insulin E11.9 Active 225651671 Problem Exophthalmia H05.20 Active 50607965 Problem Vertigo R42 Active 764102283 Problem Cellulitis of hand, right L03.113 Active [id number] Problem Severe episode of recurrent major depressive disorder, with psychotic features F33.3 Active 93369670 Problem Hammertoe of right foot M20.41 Active 794329704 Problem Hammertoe of left foot M20.42 Active 386970321 Problem History of gout Z87.39 Active 107010452 Problem Systemic lupus erythematosus, unspecified SLE type, unspecified organ involvement status M32.9 Active 88417123 Problem Essential hypertension I10 Active 01665855 Problem Mixed hyperlipidemia E78.2 Active 406349166 Problem Gastroesophageal reflux disease without esophagitis K21.9 Active 062074375 Problem Arthritis M19.90 Active 9397139 Problem Gingivitis K05.10 Active 66001236 Problem Dysthymic disorder F34.1 Active 99983408 Problem Acute left-sided low back pain with left-sided sciatica M54.42 Active 098551650 Problem Generalized anxiety disorder F41.1 Active 32279575 Problem Acute gout of right ankle, 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 Active 804264026 ALLERGIES Substance Reaction Event Type Date Status Penicillin V Potassium swelling, rash Drug Allergy Feb, Active ENCOUNTERS Encounter Location Date Diagnosis [facility] [address] [facility] [id number] [address] Mar, [facility] [address] [id number] [id number] Feb, Dental examination Z01.20 [facility] [address], [place] [address] Feb, Gouty tophi M1A.9XX1 and Cellulitis of hand, right L03.113 [facility] [address], [place] [address] Jan, Severe episode of recurrent major depressive disorder, with psychotic features F33.3 and BMI 45.0-49.9, adult Z68.42 [place] [id number] [place] [address]17- 6740 12 Dec, 2017 Severe episode of recurrent major depressive disorder, with psychotic features F33.3 and BMI 45.0-49.9, adult Z68.42 [place] [id number] [place] [address] 28697- 5726 Dec, Onychomycosis B35.1 ; Hammertoe of left foot M20.42 ; Hammertoe of right foot M20.41 and Type 2 diabetes mellitus without complication , without long-term current use of insulin E11.9 [place] [id number] [place] [address] 36150- 0281 13 Nov, 2017 Severe episode of recurrent major depressive disorder, with psychotic features F33.3 and BMI 45.0-49.9, adult Z68.42 [address] [place] [address] 74844- 4960 08 Nov, 2017 Medicare annual wellness visit, [...] gout Z87.39 and Encounter for immunization Z23 [place] [id number] [place] [address] 66626- 0955 October, [place] [id number] [address] October, [facility] [address] [place] [id number] Sep, Dental examination Z01.20 [place] [address] [place] [id number] [place] [address] 10377- 8323 Sep, [place] [address] [place] [id number] [place] [address] 94375- 1897 Aug, Dental examination Z01.20 [place] [address] [place] [id number] [place] [address] 79811- 2135 Aug, [place] [address] [place] [id number] [place] [address] 09077- 2562 Aug, [facility] [place] [address] [place] [id number] [place] [address] 97666 [address]0814 Aug, Aphthous stomatitis K12.0 and BMI 45.0-49.9, adult Z68.42 [place] [address] [place] [id number] [place] [address] 86839- 3229 Aug, [place] [address] [place] [id number] [place] [address] 24661- 0849 Aug, Vertigo R42 ; Impacted cerumen of both ears H61.23 ; Abnormal RBC indices R71.8 ; Exophthalmia H05.20 ; Elevated glucose R73.09 ; Type 2 diabetes mellitus without complication, without long-term current use of insulin E11.9 and BMI 45.0-49.9, adult Z68.42 [place] [address] [place] [id number] [place] [address] 01153- 7148 Jul, Dizziness R42 and BMI 45.0-49.9, adult Z68.42 [facility] [address] [place] [id number] [place] [address]10 [address]5606 Jun, Vertigo R42 and BMI 45.0-49.9, adult Z68.42 [facility] [address] [place] [address] [id number] May, Dental caries K02.9 [facility] [address] [place] [id number] [place] [address] [id number] May, Encounter for dental exam and cleaning w/o abnormal findings Z01.20 [facility] [address] [place] [id number] [place] [address] 31202- 3916 Apr, Acute non-recurrent maxillary sinusitis J01.00 [facility] [address] [place] [id number] [place] [address] 10759- 0916 09 Mar, 2017 [facility] [address] [place] [id number] [place] [address] 650554- 9568 Feb, Acute gout of right ankle, 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 [facility] [address] [place] [id number] [place] [address] [id number]- 1374 Feb, [facility] [address] [id number] [place] [address] [id number] Jan, Dental examination Z01.20 [facility] [address] [id number] [place] [address] [id number] Jan, Encounter for dental examination and cleaning without abnormal findings Z01.20 [facility] [address] [id number] [place] [address] [id number] Jan, Dental examination Z01.20 [facility] [address] [place] [id number] [place] [address] 305601- 8246 Jan, Acute non-recurrent frontal sinusitis J01.10 ; Essential hypertension I10 ; Mixed hyperlipidemia E78.2 ; Sore throat J02.9 and Gastroesophageal reflux disease without esophagitis K21.9 [facility] [address] [id number] Dec, [facility] [address] [place] [address] [id number] -4761 Dec, Other secondary acute gout of multiple sites M10.49 and Acute upper respiratory infection, unspecified J06.9 [facility] [address] [place] [id number] [place] [address] 62148 [address]2072 Nov, Sore throat J02.9 ; Acute nasopharyngitis (common cold) J00 and Acute left-sided low back pain with left-sided sciatica M54.42 [facility] [address] [id number] [place] [address] [id number] October, Encounter for dental examination and cleaning without abnormal findings Z01.20 [facility] [address] [address] October, Acute upper respiratory infection, unspecified J06.9 and Sore throat J02.9 [facility] [address] [id number] Sep, Encounter for dental examination and cleaning without abnormal findings Z01.20 [facility] [address] [address] Sep, Gastroesophageal reflux disease without esophagitis K21.9 [facility] [address] 237[address] Aug, Sore throat J02.9 and Acute idiopathic gout of right wrist M10.031 [facility] [address] [id number] [place] [address] [id number] Jul, Encounter for dental examination and cleaning without abnormal findings Z01.20 [facility] [address] 49113- 15[address] Jun, [facility] [address] [place] [id number] [place] [address] 95429- 1637 Jun, Lower abdominal pain R10.30 [facility] [address] [id number] Jun, Encounter for dental examination and cleaning without abnormal findings Z01.20 [facility] [address] [place] [id number] [place] [address] 19693- 8941 May, Chronic kidney disease, unspecified stage N18.9 and Mouth ulcer K12.1 [place] [address] [place] [id number] [place] [address] 79141- 2605 May, Chronic kidney disease, unspecified stage N18.9 [place] [address] 62212- 0876 May, Encounter for dental examination and cleaning without abnormal findings Z01.20 [place] [address] 08107- 3802 20 May, 2016 Encounter for dental examination and cleaning without abnormal findings Z01.20 [place] [address] 83096- 6864 16 May, 2016 Hypokalemia E87.6 ; Essential hypertension I10 ; Gastroesophageal reflux disease without esophagitis K21.9 and Right-sided thoracic back pain, unspecified chronicity M54.6 [facility] [place] [address] 20424 [address]58[address] 13 May, 2016 Oral candidiasis B37.0 [place] [address] 66304- 9028 02 May, 2016 [place] [address] 56040- 4356 May, Cracked tooth K03.81 and Retained dental root K08.3 [place] [address] 46203- 9592 May, Dental examination Z01.20 [facility] [place] [address] 92067 -0861 28 Apr, 2016 Acute right flank pain R10.9 and Acute left lower quadrant pain R10.32 [place] [address] 17376- 5875 08 Apr, 2016 Bronchitis J40 [place] [address] 43509- 5840 13 Mar, 2016 Dental examination Z01.20 [place] [address] [place] [id number] [place] [address] 14685- 0129 07 Mar, 2016 Dysthymic disorder F34.1 [facility] [address] [place] [id number] [place] [address] 16359 -6486 05 Mar, 2016 Gingivitis K05.10 and Torticollis M43.6 [place] [address] [place] [id number] [place] [address] 82107- 8871 08 Feb, 2016 Dysthymic disorder F34.1 [facility] [address] [place] [id number] [place] [address] 68433 -1455 07 Feb, 2016 Lymph nodes enlarged R59.9 [facility] [place] [address] [place] [id number] [place] [address] 48497 -6896 Jan, Left otitis media, unspecified chronicity, unspecified otitis media type H66.92 [place] [address] [place] [id number] [place] [address] 85543- 0728 Jan, Dysthymic disorder F34.1 and Generalized anxiety disorder F41.1 [place] [address] [place] [id number] [place] [address] 90589- 2307 Dec, Dental examination Z01.20 [place] [address] [place] [id number] [place] [address] 66323- 7680 Dec, Dysthymic disorder F34.1 and Generalized anxiety disorder F41.1 [place] [address] [place] [id number] [place] [address] 32902- 4538 Dec, Gastroesophageal reflux disease without esophagitis K21.9 and Arthritis M19.90 [place] [address] [place] [id number] [place] [address] 42556- 1189 Dec, Dysthymic disorder F34.1 and Generalized anxiety disorder F41.1 [facility] [address] [place] [id number] [place] [address] 71792 -4989 07 Dec, 2015 Gingivitis K05.10 [place] [address] [place] [id number] [place] [address] 03210- 0911 Dec, Essential hypertension I10 ; Epigastric pain R10.13 ; Mixed hyperlipidemia E78.2 ; Proptosis H05.20 and Gastroesophageal reflux disease without esophagitis K21.9 [place] [address] [place] [id number] [place] [id number] Dec, [place] [address] 91096- 3057 Nov, Dysthymic disorder F34.1 [facility] [place] [address] 91634 -7396 Nov, Epigastric pain R10.13 and Gastroesophageal reflux disease , esophagitis presence not specified K21.9 [place] [address] [place] [id number] [place] [address] 44984- 0544 Nov, Depression, unspecified depression type F32.9 [place] [address] 57982- 5436 Nov, Essential hypertension I10 ; Mixed hyperlipidemia E78.2 ; Proptosis H05.20 ; Gastroesophageal reflux disease without esophagitis K21.9 and Depression, unspecified depression type F32.9 [place] [address] [place] [id number] [place] [address] 36332- 2769 Nov, [facility] [place] [address] [place] [id number] [place] [address] 01231 -5040 Nov, Sore in mouth K13.79 [facility] [place] [address] [place] [id number] [place] [address] 87264 -2325 14 Nov, 2015 Left-sided chest wall pain R07.89 and Pain of right calf M79.661 [place] [address] 87411- 3596 06 Nov, 2015 Gastroesophageal reflux disease, esophagitis presence not specified K21.9 and Environmental allergies Z91.09 [facility] [address] [id number] October, Dental examination Z01.20 IMMUNIZATIONS No Known Immunizations SOCIAL HISTORY Never Assessed REASON FOR VISIT right hand is painful, swollen, et has a blister on the top. been like this for 3 days. [email or web address] PLAN OF CARE VITAL SIGNS Height 70 in 2018-03-07 Weight 321.4 lbs 2018-03-07 Temperature 98.5 degrees Fahrenheit 2018-03-07 Heart Rate 98 bpm 2018-03-07 Respiratory Rate 22 2018-03-07 BMI 46.11 kg/m2 2018-03-07 Blood pressure systolic 124 mmHg 2018-03-07 Blood pressure diastolic 80 mmHg 2018-03-07 MEDICATIONS Medication Instructions Dosage Frequency Start Date End Date Duration Status Blood Glucose Monitor System w/Device DX- E11.9 2 times a day test blood sugar 12h Aug, Active Aripiprazole 15 MG Orally Once a day 1 tablet 24h 30 days Active Uloric 80 MG Orally Once a day 1 tablet 24h Active Blood Glucose Test Strip DX- E11.9 and lancets Fasting and 2 hours after 1 meal 3 times weekly. test blood sugar Aug, Active SudoGest 60 mg Orally every 6 hrs 1 tablet as needed 6h October, 7 days Active Eye Health Formula 180-15-5 MG Active PredniSONE 20 mg Orally Once a day 2 tablets 24h Feb, Feb, 5 days Active Potassium Chloride ER 10 TAKE TWO TABLETS BY MOUTH DAILY WITH FOOD 30 Active Pravastatin Sodium 10 TAKE ONE TABLET BY MOUTH DAILY 90 Active Lisinopril 10 TAKE ONE TABLET BY MOUTH DAILY 30 Active Mens Multi Vitamin & Mineral Active Pravastatin Sodium 10 mg Orally Once a day 1 tablet 24h 30 days Active Metformin HCl 500 mg Orally Twice a day 1 tablet with meals 12h Aug, 30 day(s) Active Lisinopril 10 mg Orally Once a day 1 tablet 24h 30 days Active Protonix 40 mg Orally Once a day 1 tablet 24h 30 Active Bactrim DS 800-160 MG Orally Twice a day 1 tablet 12h Feb,Feb 10 day(s) Active RESULTS No Results PROCEDURES Procedure Date Ordered Result Body Site [facility] VISIT ESTABLISHED PATIENT Mar 07, 2018 INSTRUCTIONS MEDICATIONS ADMINISTERED No Known Medications [...]
--- OUTSIDE RECORDS SUMMARY | 2018-06-01 09:55 | XMS REPORT ---
Author Author RIVERANAZIA FERREIRA Organization [facility] Address [address] [place] [address] Care Team Providers Care Coach Driver Name Role Phone RIVERANAZIA FERREIRA Unavailable PROBLEMS Type Condition ICD9-CM Code ASM78-QU Code Onset Dates Condition Status SNOMED Code Problem Type 2 diabetes mellitus without complication, without long-term current use of insulin E11.9 Active 689512692 Problem Exophthalmia H05.20 Active 10769451 Problem Vertigo R42 Active 291334502 Problem Cellulitis of hand, right L03.113 Active 83123510007002970 Problem Severe episode of recurrent major depressive disorder, with psychotic features F33.3 Active 34684878 Problem Hammertoe of right foot M20.41 Active 981643210 Problem Hammertoe of left foot M20.42 Active 339334851 Problem History of gout Z87.39 Active 489390894 Problem Systemic lupus erythematosus, unspecified SLE type, unspecified organ involvement status M32.9 Active 46900621 Problem Essential hypertension I10 Active 22901959 Problem Mixed hyperlipidemia E78.2 Active 563093243 Problem Gastroesophageal reflux disease without esophagitis K21.9 Active 950083987 Problem Arthritis M19.90 Active 3554674 Problem Gingivitis K05.10 Active 83416711 Problem Dysthymic disorder F34.1 Active 80847802 Problem Acute left-sided low back pain with left-sided sciatica M54.42 Active 182236277 Problem Generalized anxiety disorder F41.1 Active 31374897 Problem Acute gout of right ankle, 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 Active 487835279 ALLERGIES Substance Reaction Event Type Date Status Penicillin V Potassium swelling, rash Drug Allergy Jan, Active ENCOUNTERS Encounter Location Date Diagnosis [facility] [address] [facility] [id number] [address] Mar, [facility] [address] [facility] [id number] [address] Feb, [facility] [address] [facility] [id number] [place] [id number] Feb, Dental examination Z01.20 [facility] [id number] [place] [address] 79385 [address]8947 15 Feb, 2018 Gouty tophi M1A.9XX1 and Cellulitis of hand, right L03.113 [facility] [address] [place] [id number] [place] [address] 81286- 7504 Jan, Severe episode of recurrent major depressive disorder, with psychotic features F33.3 and BMI 45.0-49.9, adult Z68.42 [place] [address] [address] [id number] [place] [address] 36111- 5144 Dec, Severe episode of recurrent major depressive disorder, with psychotic features F33.3 and BMI 45.0-49.9, adult Z68.42 [facility] [address] [place] [address] 36031- 3896 06 Dec, 2017 Onychomycosis B35.1 ; Hammertoe of left foot M20.42 ; Hammertoe of right foot M20.41 and Type 2 diabetes mellitus without complication , without long-term current use of insulin E11.9 [place] [address] [place] [address] 45159- 6156 13 Nov, 2017 Severe episode of recurrent major depressive disorder, with psychotic features F33.3 and BMI 45.0-49.9, adult Z68.42 [facility] [address] [place] [address] 65871- 5540 08 Nov, 2017 Medicare annual wellness visit, [...] gout Z87.39 and Encounter for immunization Z23 [facility] [address] [address] October, [facility] [id number] [place] [address] 02364- 0551 October, [facility] [address] [id number] Sep, Dental examination Z01.20 [facility] [address] [address] [id number] [place] [address] 75863- 4355 Sep, [facility] [id number] [place] [address] 69477- 7938 Aug, Dental examination Z01.20 [facility] [address] [id number] [place] [address] 99582- 4804 Aug, [place] [address] [address] [id number] [place] [address] 01651- 4902 Aug, [facility] [place] [address] [id number] [place] [address] 51217 -4641 Aug, Aphthous stomatitis K12.0 and BMI 45.0-49.9, adult Z68.42 [place] [address] [place] [id number] [place] [address] 53638- 5899 05 Aug, 2017 [place] [address] [id number] [place] [address] 42024- 9595 Aug, Vertigo R42 ; Impacted cerumen of both ears H61.23 ; Abnormal RBC indices R71.8 ; Exophthalmia H05.20 ; Elevated glucose R73.09 ; Type 2 diabetes mellitus without complication, without long-term current use of insulin E11.9 and BMI 45.0-49.9, adult Z68.42 [facility] [id number] [place] [address] 65398- 1941 Jul, Dizziness R42 and BMI 45.0-49.9, adult Z68.42 [facility] [id number] [place] [address] [phone] -5746 Jun, Vertigo R42 and BMI 45.0-49.9, adult Z68.42 [facility] [address] [phone] May, Dental caries K02.9 [facility] [address] [id number] May, Encounter for dental exam and cleaning w/o abnormal findings Z01.20 [facility] [address] 415529- 4[address] 07 Apr, 2017 Acute non-recurrent maxillary sinusitis J01.00 [facility] [address] [address]55- 7531 09 Mar, 2017 [facility] [address] 97619- 4943 11 Feb, 2017 Acute gout of right ankle, 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 [facility] [id number] [place] [address] 51268- 1907 Feb, [facility] [address] [place] [id number] [place] [address] [phone] Jan, Dental examination Z01.20 [facility] [address] [place] [id number] [place] [address] [id number] Jan, Encounter for dental examination and cleaning without abnormal findings Z01.20 [facility] [address] [place] [id number] [place] [address] [id number] Jan, Dental examination Z01.20 [facility] [id number] [place] [address] [phone] Jan, Acute non-recurrent frontal sinusitis J01.10 ; Essential hypertension I10 ; Mixed hyperlipidemia E78.2 ; Sore throat J02.9 and Gastroesophageal reflux disease without esophagitis K21.9 [facility] [address] [place] [address] [id number] [place] [address] [phone] Dec, [facility] [address] [address]46 [address]8 Dec, Other secondary acute gout of multiple sites M10.49 and Acute upper respiratory infection, unspecified J06.9 [facility] [id number] [place] [phone] Nov, Sore throat J02.9 ; Acute nasopharyngitis (common cold) J00 and Acute left-sided low back pain with left-sided sciatica M54.42 [facility] [address] [id number] October, Encounter for dental examination and cleaning without abnormal findings Z01.20 [facility] [address] 55051 -1552 October, Acute upper respiratory infection, unspecified J06.9 and Sore throat J02.9 [facility] [address] [id number] Sep, Encounter for dental examination and cleaning without abnormal findings Z01.20 [facility] [address] 99808[address] 7272 Sep, Gastroesophageal reflux disease without esophagitis K21.9 [facility] [address] [address] [id number] [place] [address] 50605 -6593 Aug, Sore throat J02.9 and Acute idiopathic gout of right wrist M10.031 [facility] [address] [place] [address] [id number] [place] [address] [phone] Jul, Encounter for dental examination and cleaning without abnormal findings Z01.20 [facility] [id number] [place] [address] 65210- 1446 Jun, [facility] [address] [address]68- 7[address] Jun, Lower abdominal pain R10.30 [facility] [address] [id number] Jun, Encounter for dental examination and cleaning without abnormal findings Z01.20 [place] [address] [place] [address] [id number] [place] [address] 19934- 1335 May, Chronic kidney disease, unspecified stage N18.9 and Mouth ulcer K12.1 [place] [address] [place] [id number] [place] [address] 18247- 0821 May, Chronic kidney disease, unspecified stage N18.9 [place] [address] 370162- 3081 May, Encounter for dental examination and cleaning without abnormal findings Z01.20 [place] [address] 44278- 1598 May, Encounter for dental examination and cleaning without abnormal findings Z01.20 [place] [address] [place] [id number] [place] [address] 29132- 8891 16 May, 2016 Hypokalemia E87.6 ; Essential hypertension I10 ; Gastroesophageal reflux disease without esophagitis K21.9 and Right-sided thoracic back pain, unspecified chronicity M54.6 [facility] [address] 37852 -0641 13 May, 2016 Oral candidiasis B37.0 [place] [address] [place] [id number] [place] [address] 81504- 9498 02 May, 2016 [place] [address] 83814- 6027 May, Cracked tooth K03.81 and Retained dental root K08.3 [place] [address] [place] [id number] [place] [address] 48075- 6436 May, Dental examination Z01.20 [facility] [address] 98961 -9113 28 Apr, 2016 Acute right flank pain R10.9 and Acute left lower quadrant pain R10.32 [place] [address] [id number] [place] [address] 36378- 0953 08 Apr, 2016 Bronchitis J40 [place] [address] [id number] [place] [address] 34989- 6576 13 Mar, 2016 Dental examination Z01.20 [place] [address] [address] [id number] [place] [address] 92123- 3683 07 Mar, 2016 Dysthymic disorder F34.1 [facility] [place] [address] [address] [id number] [place] [address] 39086 -[phone] 05 Mar, 2016 Gingivitis K05.10 and Torticollis M43.6 [place] [address] [place] [id number] [place] [address] 80441- 2696 08 Feb, 2016 Dysthymic disorder F34.1 [facility] [place] [address] [id number] [place] [address] 30554 -2745 07 Feb, 2016 Lymph nodes enlarged R59.9 [facility] [place] [address] [id number] [place] [address] 19379 -3960 Jan, Left otitis media, unspecified chronicity, unspecified otitis media type H66.92 [place] [address] [place] [id number] [place] [address] 67949- 5387 08 Jan, 2016 Dysthymic disorder F34.1 and Generalized anxiety disorder F41.1 [place] [address] [place] [id number] [place] [address] 61259- 6344 Dec, Dental examination Z01.20 [place] [address] [place] [id number] [place] [address] 20142- 8458 21 Dec, 2015 Dysthymic disorder F34.1 and Generalized anxiety disorder F41.1 [place] [address] [place] [id number] [place] [address] 88208- 9011 18 Dec, 2015 Gastroesophageal reflux disease without esophagitis K21.9 and Arthritis M19.90 [place] [address] [place] [id number] [place] [address] 78502- 4697 11 Dec, 2015 Dysthymic disorder F34.1 and Generalized anxiety disorder F41.1 [facility] [place] [address] [place] [id number] [place] [address] 98507 -0917 Dec, Gingivitis K05.10 [place] [address] [place] [id number] [place] [address] 72764- 9980 Dec, Essential hypertension I10 ; Epigastric pain R10.13 ; Mixed hyperlipidemia E78.2 ; Proptosis H05.20 and Gastroesophageal reflux disease without esophagitis K21.9 [place] [address] [place] [id number] [place] [address] 82673- 5014 Dec, [place] [address] [place] [id number] [place] [address] 37184- 6742 Nov, Dysthymic disorder F34.1 [facility] [place] [id number] [place] [address] 55894 -6393 Nov, Epigastric pain R10.13 and Gastroesophageal reflux disease , esophagitis presence not specified K21.[address] [address]- 1997 Nov, Depression, unspecified depression type F32.9 [place] [address] [place] [id number] [place] [address] 86623- 6577 Nov, Essential hypertension I10 ; Mixed hyperlipidemia E78.2 ; Proptosis H05.20 ; Gastroesophageal reflux disease without esophagitis K21.9 and Depression, unspecified depression type F32.9 [place] [address] [place] [id number] [place] [address] 11472- 4401 Nov, [facility] [place] [address] [id number] [place] [address] 06763 -4069 Nov, Sore in mouth K13.79 [facility] [address] [address] -8595 14 Nov, 2015 Left-sided chest wall pain R07.89 and Pain of right calf M79.661 [place] [address] [place] [id number] [place] [address] 94647- 7949 06 Nov, 2015 Gastroesophageal reflux disease, esophagitis presence not specified K21.9 and Environmental allergies Z91.09 [facility] [address] [id number] [place] [phone] October, Dental examination Z01.20 IMMUNIZATIONS No Known Immunizations SOCIAL HISTORY Never Assessed REASON FOR VISIT f/mary Poole MA PLAN OF CARE Activity Details Follow Up 4 Weeks Reason: VITAL SIGNS Height 70 in 2018-02-04 Weight 314.8 lbs 2018-02-04 Heart Rate 103 bpm 2018-02-04 Respiratory Rate 20 2018-02-04 Oximetry 96 % 2018-02-04 BMI 45.16 kg/m2 2018-02-04 Blood pressure systolic 128 mmHg 2018-02-04 Blood pressure diastolic 72 mmHg 2018-02-04 MEDICATIONS Medication Instructions Dosage Frequency Start Date End Date Duration Status Aripiprazole 15 MG Orally Once a day 1 tablet 24h 30 days Active Mens Multi Vitamin & Mineral Active Protonix 40 mg Orally Once a day 1 tablet 24h 30 Active Blood Glucose Monitor System w/Device DX- E11.9 2 times a day test blood sugar 12h Aug, Active SudoGest 60 mg Orally every 6 hrs 1 tablet as needed 6h October, 07 days Active Eye Health Formula 180-15-5 MG Active Uloric 80 MG Orally Once a day 1 tablet 24h Active Pravastatin Sodium 10 mg Orally Once a day 1 tablet 24h 30 days Active Lisinopril 10 mg Orally Once a day 1 tablet 24h 30 days Active Metformin HCl 500 mg Orally Twice a day 1 tablet with meals 12h 05 Aug, 2017 30 day(s) Active Blood Glucose Test Strip DX- E11.9 and lancets Fasting and 2 hours after 1 meal 3 times weekly. test blood sugar Aug, Active RESULTS No Results PROCEDURES Procedure Date Ordered Result Body Site [facility] VISIT ESTABLISHED PATIENT Feb 04, 2018 INSTRUCTIONS MEDICATIONS ADMINISTERED No Known Medications [...]
--- OUTSIDE RECORDS SUMMARY | 2018-06-01 09:55 | XMS REPORT ---
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 Name Role Phone EDGARDO BATES Unavailable PROBLEMS Type Condition ICD9-CM Code YQZ21-SY Code Onset Dates Condition Status SNOMED Code Problem Acute gout of right ankle, 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 Active 312043310 Problem Vertigo R42 Active 915013389 Problem Type 2 diabetes mellitus without complication, without long-term current use of insulin E11.9 Active 767423334 Problem Severe episode of recurrent major depressive disorder, with psychotic features F33.3 Active 21827046 Problem History of gout Z87.39 Active 534578466 Problem Hammertoe of left foot M20.42 Active 299542813 Problem Exophthalmia H05.20 Active 75583829 Problem Systemic lupus erythematosus, unspecified SLE type, unspecified organ involvement status M32.9 Active 13108539 Problem Hammertoe of right foot M20.41 Active 640395632 Problem Gastroesophageal reflux disease without esophagitis K21.9 Active 746437629 Problem Essential hypertension I10 Active 93036104 Problem Generalized anxiety disorder F41.1 Active 48383493 Problem Arthritis M19.90 Active 6102881 Problem Mixed hyperlipidemia E78.2 Active 731490117 Problem Gingivitis K05.10 Active 79786558 Problem Dysthymic disorder F34.1 Active 42072475 Problem Acute left-sided low back pain with left-sided sciatica M54.42 Active 216233170 ALLERGIES No Information ENCOUNTERS Encounter Location Date Diagnosis [facility] [id number] [address] Mar, [facility] [id number] [address] Feb, [facility] [id number] [address] Feb, [place] [id number] [place] [address] Jan, Severe episode of recurrent major depressive disorder, with psychotic features F33.3 and BMI 45.0-49.9, adult Z68.42 [place] [id number] [place] [address] 90707- 2775 Dec, Severe episode of recurrent major depressive disorder, with psychotic features F33.3 and BMI 45.0-49.9, adult Z68.42 [place] [id number] [place] [address] 11645- 4241 Dec, Onychomycosis B35.1 ; Hammertoe of left foot M20.42 ; Hammertoe of right foot M20.41 and Type 2 diabetes mellitus without complication , without long-term current use of insulin E11.9 [place] [id number] [place] [address] 94378- 6810 13 Nov, 2017 Severe episode of recurrent major depressive disorder, with psychotic features F33.3 and BMI 45.0-49.9, adult Z68.42 [place] [id number] [place] [address] 49271- 6639 08 Nov, 2017 Medicare annual wellness visit, [...] gout Z87.39 and Encounter for immunization Z23 [place] [id number] [place] [address] 66489- 7505 October, [place] [id number] [place] [address] 14766- 9593 October, [facility] [address] [place] [id number] Sep, Dental examination Z01.20 [facility] [address] [address] 11 Sep, 2017 [facility] [id number] [place] [address] 94574- 6982 Aug, Dental examination Z01.20 [facility] [id number] [place] [address] 40901- 5379 Aug, [facility] [id number] [place] [address] 25113- 4478 Aug, [facility] [place] [id number] [place] [address] 82989 -6034 14 Aug, 2017 Aphthous stomatitis K12.0 and BMI 45.0-49.9, adult Z68.42 [place] [id number] [place] [address] 51216- 0588 Aug, [place] [address] 6[address]- [address] 05 Aug, 2017 Vertigo R42 ; Impacted cerumen of both ears H61.23 ; Abnormal RBC indices R71.8 ; Exophthalmia H05.20 ; Elevated glucose R73.09 ; Type 2 diabetes mellitus without complication, without long-term current use of insulin E11.9 and BMI 45.0-49.9, adult Z68.42 [place] [id number] [place] [address] 52601- 6306 Jul, Dizziness R42 and BMI 45.0-49.9, adult Z68.42 [facility] [id number] [place] [address] 43288 -4123 Jun, Vertigo R42 and BMI 45.0-49.9, adult Z68.42 [facility] [id number] [place] [address] [id number] May, Dental caries K02.9 [facility] [id number] [place] [address] [id number] May, Encounter for dental exam and cleaning w/o abnormal findings Z01.20 [facility] [id number] [place] [address] 90260- 9786 07 Apr, 2017 Acute non-recurrent maxillary sinusitis J01.00 [facility] [id number] [place] [address] 17848- 5036 09 Mar, 2017 [facility] [id number] [place] [address] 112617- 0233 11 Feb, 2017 Acute gout of right ankle, 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 [facility] [id number] [place] [address] 94070- 0576 Feb, [facility] [id number] [place] [address] [id number] Jan, Dental examination Z01.20 [facility] [id number] [place] [address] [id number] Jan, Encounter for dental examination and cleaning without abnormal findings Z01.20 [facility] [id number] [place] [address] [id number] Jan, Dental examination Z01.20 [facility] [id number] [place] [address] 09982- 4596 Jan, Acute non-recurrent frontal sinusitis J01.10 ; Essential hypertension I10 ; Mixed hyperlipidemia E78.2 ; Sore throat J02.9 and Gastroesophageal reflux disease without esophagitis K21.9 [facility] [id number] [place] [address] [id number] Dec, [facility] [id number] [place] [address] 64022 -4705 Dec, Other secondary acute gout of multiple sites M10.49 and Acute upper respiratory infection, unspecified J06.9 [facility] [address] [place] [address] 74348 -3642 Nov, Sore throat J02.9 ; Acute nasopharyngitis (common cold) J00 and Acute left-sided low back pain with left-sided sciatica M54.42 [facility] [address] [place] [address] [id number] October, Encounter for dental examination and cleaning without abnormal findings Z01.20 [facility] [id number] [place] [address] 625848 -8596 October, Acute upper respiratory infection, unspecified J06.9 and Sore throat J02.9 [facility] [address] [id number] Sep, Encounter for dental examination and cleaning without abnormal findings Z01.20 [facility] [address] 01420- 5497 Sep, Gastroesophageal reflux disease without esophagitis K21.9 [facility] [address] 15257 -8136 Aug, Sore throat J02.9 and Acute idiopathic gout of right wrist M10.031 [facility] [id number] [place] [address] [id number] Jul, Encounter for dental examination and cleaning without abnormal findings Z01.20 [facility] [id number] [place] [address] 23296- 2331 Jun, [facility] [id number] [place] [address] 68137- 9431 Jun, Lower abdominal pain R10.30 [facility] [address] [id number] Jun, Encounter for dental examination and cleaning without abnormal findings Z01.20 [facility] [address] 30491- 2797 May, Chronic kidney disease, unspecified stage N18.9 and Mouth ulcer K12.1 [facility] [id number] [place] [address] 09314- 0074 May, Chronic kidney disease, unspecified stage N18.9 [place] [address] 92805- 3317 May, Encounter for dental examination and cleaning without abnormal findings Z01.20 [place] [address] 34740- 2020 May, Encounter for dental examination and cleaning without abnormal findings Z01.20 [place] [address] 79308- 0347 16 May, 2016 Hypokalemia E87.6 ; Essential hypertension I10 ; Gastroesophageal reflux disease without esophagitis K21.9 and Right-sided thoracic back pain, unspecified chronicity M54.6 [facility] [place] [address] 17817 -2973 May, Oral candidiasis B37.0 [place] [address] 88155- 5295 May, [place] [address] 51614- 7555 May, Cracked tooth K03.81 and Retained dental root K08.3 [place] [address] 93840- 4373 May, Dental examination Z01.20 [facility] [place] [address] 88003 -1092 28 Apr, 2016 Acute right flank pain R10.9 and Acute left lower quadrant pain R10.32 [place] [address] 29764- 1695 08 Apr, 2016 Bronchitis J40 [place] [address] 99043- 2665 13 Mar, 2016 Dental examination Z01.20 [place] [address] 06244- 8595 07 Mar, 2016 Dysthymic disorder F34.1 [facility] [address] 83303 -5937 05 Mar, 2016 Gingivitis K05.10 and Torticollis M43.6 [place] [address] 33661- 8044 08 Feb, 2016 Dysthymic disorder F34.1 [facility] [place] [address] 76613 -7652 07 Feb, 2016 Lymph nodes enlarged R59.9 [facility] [place] [address] 83020 -5747 Jan, Left otitis media, unspecified chronicity, unspecified otitis media type H66.92 [place] [address] 42561- 4864 Jan, Dysthymic disorder F34.1 and Generalized anxiety disorder F41.1 [place] [address] 02419- 2862 Dec, Dental examination Z01.20 [place] [address] 70695- 9506 Dec, Dysthymic disorder F34.1 and Generalized anxiety disorder F41.1 [place] [address] 34842- 6206 Dec, Gastroesophageal reflux disease without esophagitis K21.9 and Arthritis M19.90 [place] [address] 43023- 5953 Dec, Dysthymic disorder F34.1 and Generalized anxiety disorder F41.1 [facility] [place] [id number] [place] [address] 74139 -3875 Dec, Gingivitis K05.10 [place] [address] 88194- 8731 Dec, Essential hypertension I10 ; Epigastric pain R10.13 ; Mixed hyperlipidemia E78.2 ; Proptosis H05.20 and Gastroesophageal reflux disease without esophagitis K21.9 [place] [id number] [place] [address] 06612- 0120 Dec, [place] [address] 78477- 5779 30 Nov, 2015 Dysthymic disorder F34.1 [facility] [address] 41495 -9644 Nov, Epigastric pain R10.13 and Gastroesophageal reflux disease , esophagitis presence not specified K21.9 [place] [address] 08363- 5391 Nov, Depression, unspecified depression type F32.9 [place] [address] 58091- 2513 24 Nov, 2015 Essential hypertension I10 ; Mixed hyperlipidemia E78.2 ; Proptosis H05.20 ; Gastroesophageal reflux disease without esophagitis K21.9 and Depression, unspecified depression type F32.9 [place] [address] 63249- 9910 Nov, [facility] [place] [address] 53050 -9526 Nov, Sore in mouth K13.79 [facility] [address] 33702 -[address]8 14 Nov, 2015 Left-sided chest wall pain R07.89 and Pain of right calf M79.661 [place] [address] 81262- 4933 06 Nov, 2015 Gastroesophageal reflux disease, esophagitis presence not specified K21.9 and Environmental allergies Z91.09 [facility] [address] [id number] October, Dental examination Z01.20 IMMUNIZATIONS No Known Immunizations SOCIAL HISTORY Never Assessed REASON FOR VISIT DM ed PLAN OF CARE VITAL SIGNS MEDICATIONS Medication Instructions Dosage Frequency Start Date End Date Duration Status Blood Glucose Monitor System w/Device DX- E11.9 2 times a day test blood sugar 12h 28 Aug, 2018 Active Blood Glucose Test Strip DX- E11.9 and lancets Fasting and 2 hours after 1 meal 3 times weekly. test blood sugar Aug, Active RESULTS No Results PROCEDURES No Known [...]
--- OUTSIDE RECORDS SUMMARY | 2018-06-01 09:56 | XMS REPORT ---
Author Author CLARIBELNAZIA Organization [facility] Address [address] [place] [address] Care Team Providers Care Subpoena Server Name Role Phone RIVERANAZIA FERREIRA Unavailable PROBLEMS Type Condition ICD9-CM Code AGH15-ER Code Onset Dates Condition Status SNOMED Code Problem Acute gout of right ankle, 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 Active 384991654 Problem Vertigo R42 Active 457324840 Problem Type 2 diabetes mellitus without complication, without long-term current use of insulin E11.9 Active 655258857 Problem Severe episode of recurrent major depressive disorder, with psychotic features F33.3 Active 97122819 Problem History of gout Z87.39 Active 349278849 Problem Hammertoe of left foot M20.42 Active 473725898 Problem Exophthalmia H05.20 Active 57250570 Problem Systemic lupus erythematosus, unspecified SLE type, unspecified organ involvement status M32.9 Active 91008507 Problem Hammertoe of right foot M20.41 Active 484202270 Problem Gastroesophageal reflux disease without esophagitis K21.9 Active 558120645 Problem Essential hypertension I10 Active 49481183 Problem Generalized anxiety disorder F41.1 Active 42254767 Problem Arthritis M19.90 Active 1366997 Problem Mixed hyperlipidemia E78.2 Active 596462334 Problem Gingivitis K05.10 Active 23405076 Problem Dysthymic disorder F34.1 Active 28609986 Problem Acute left-sided low back pain with left-sided sciatica M54.42 Active 347847836 ALLERGIES Substance Reaction Event Type Date Status Penicillin V Potassium swelling, rash Drug Allergy Nov, Active ENCOUNTERS Encounter Location Date Diagnosis [facility] [address] [facility] [id number] [address] Mar, [facility] [address] [facility] [id number] [address] Feb, [place] [address] [address] Feb, [place] [id number] [place] [address]657- 1833 Jan, Severe episode of recurrent major depressive disorder, with psychotic features F33.3 and BMI 45.0-49.9, adult Z68.42 [place] [id number] [place] [address] 56801- 3812 Dec, Severe episode of recurrent major depressive disorder, with psychotic features F33.3 and BMI 45.0-49.9, adult Z68.[address] [address] Dec, Onychomycosis B35.1 ; Hammertoe of left foot M20.42 ; Hammertoe of right foot M20.41 and Type 2 diabetes mellitus without complication , without long-term current use of insulin E11.9 [place] [id number] [place] [address] 64178- 5727 Nov, Severe episode of recurrent major depressive disorder, with psychotic features F33.3 and BMI 45.0-49.9, adult Z68.42 [place] [id number] [place] [address] 21405- 3246 08 Nov, 2017 Medicare annual wellness visit, [...] gout Z87.39 and Encounter for immunization Z23 [place] [id number] [place] [address] October, [address] [place] [address] 69956- 8693 October, [place] [address] [place] [id number] [place] [address] [id number] Sep, Dental examination Z01.20 [place] [address] [place] [id number] [place] [address] 31343- 2990 Sep, [place] [address] [place] [id number] [place] [address] [phone] 6070 Aug, Dental examination Z01.20 [place] [address] 0[address]13- 6080 Aug, [place] [address] [place] [id number] [place] [address] 59037- 3318 Aug, [facility] [place] [address] [place] [id number] [place] [address] 69962 -8078 Aug, Aphthous stomatitis K12.0 and BMI 45.0-49.9, adult Z68.42 [place] [address] [place] [id number] [place] [address] 00355- 6636 Aug, [place] [address] [place] [id number] [place] [address] 01498- 5537 Aug, Vertigo R42 ; Impacted cerumen of both ears H61.23 ; Abnormal RBC indices R71.8 ; Exophthalmia H05.20 ; Elevated glucose R73.09 ; Type 2 diabetes mellitus without complication, without long-term current use of insulin E11.9 and BMI 45.0-49.9, adult Z68.42 [place] [address] [place] [id number] [place] [address] 71148- 4673 Jul, Dizziness R42 and BMI 45.0-49.9, adult Z68.42 [facility] [place] [address] [place] [id number] [place] [address] 19468 -7549 Jun, Vertigo R42 and BMI 45.0-49.9, adult Z68.42 [facility] [id number] [place] [address] [id number] May, Dental caries K02.9 [facility] [address] [place] [id number] [place] [address] [id number] May, Encounter for dental exam and cleaning w/o abnormal findings Z01.20 [facility] [address] [place] [id number] [place] [address] [phone]- 3356 Apr, Acute non-recurrent maxillary sinusitis J01.00 [facility] [address] 82327- 9896 09 Mar, 2017 [facility] [address] [address]22- 8411 11 Feb, 2017 Acute gout of right ankle, 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 [facility] [address] 05779- 3791 Feb, [facility] [address] [id number] Jan, Dental examination Z01.20 [facility] [address] [place] [id number] [place] [address] [id number] Jan, Encounter for dental examination and cleaning without abnormal findings Z01.20 [facility] [address] [place] [id number] [place] [address] [id number] Jan, Dental examination Z01.20 [facility] [address] [place] [id number] [place] [address] 57346- 9276 Jan, Acute non-recurrent frontal sinusitis J01.10 ; Essential hypertension I10 ; Mixed hyperlipidemia E78.2 ; Sore throat J02.9 and Gastroesophageal reflux disease without esophagitis K21.9 [facility] [address] [place] [id number] [place] [address] [id number] Dec, [facility] [address] [address] Dec, Other secondary acute gout of multiple sites M10.49 and Acute upper respiratory infection, unspecified J06.9 [facility] [address] [place] [id number] [place] [address] 39901 -8471 Nov, Sore throat J02.9 ; Acute nasopharyngitis (common cold) J00 and Acute left-sided low back pain with left-sided sciatica M54.42 [facility] [address] [id number] October, Encounter for dental examination and cleaning without abnormal findings Z01.20 [facility] [address] [phone] -[phone] October, Acute upper respiratory infection, unspecified J06.9 and Sore throat J02.9 [facility] [address] [id number] Sep, Encounter for dental examination and cleaning without abnormal findings Z01.20 [facility] [address] 852890- 5866 Sep, Gastroesophageal reflux disease without esophagitis K21.9 [facility] [address] 16217 -7578 Aug, Sore throat J02.9 and Acute idiopathic gout of right wrist M10.031 [facility] [address] [id number] Jul, Encounter for dental examination and cleaning without abnormal findings Z01.20 [facility] [address] [place] [id number] [place] [address] 19269- 9861 Jun, [facility] [address] 09555- 2005 Jun, Lower abdominal pain R10.30 [facility] [address] [id number] Jun, Encounter for dental examination and cleaning without abnormal findings Z01.20 [facility] [address] [id number]- 3882 May, Chronic kidney disease, unspecified stage N18.9 and Mouth ulcer K12.1 [facility] [address] 83122- 5342 May, Chronic kidney disease, unspecified stage N18.9 [place] [address] [place] [id number] [place] [address] 67405- 8436 May, Encounter for dental examination and cleaning without abnormal findings Z01.20 [place] [address] [place] [id number] [place] [address] 50312- 8219 May, Encounter for dental examination and cleaning without abnormal findings Z01.20 [place] [address] 74642- 9973 16 May, 2016 Hypokalemia E87.6 ; Essential hypertension I10 ; Gastroesophageal reflux disease without esophagitis K21.9 and Right-sided thoracic back pain, unspecified chronicity M54.6 [facility] [address] 45822 -9096 May, Oral candidiasis B37.0 [place] [address] 49112- 5703 May, [place] [address] 58345- 8836 May, Cracked tooth K03.81 and Retained dental root K08.3 [place] [address] 29407- 6943 May, Dental examination Z01.20 [facility] [place] [address] [place] [id number] [place] [address] 67773 -5157 Apr, Acute right flank pain R10.9 and Acute left lower quadrant pain R10.32 [place] [address] 86023- 8198 08 Apr, 2016 Bronchitis J40 [place] [address] 01906- 1274 Mar, Dental examination Z01.20 [place] [address] 53299- 5323 07 Mar, 2016 Dysthymic disorder F34.1 [facility] [place] [address] [place] [id number] [place] [address] 39442 -9777 05 Mar, 2016 Gingivitis K05.10 and Torticollis M43.6 [place] [address] [place] [id number] [place] [address] 05195- 9746 08 Feb, 2016 Dysthymic disorder F34.1 [facility] [place] [address] 33065 -4090 07 Feb, 2016 Lymph nodes enlarged R59.9 [facility] [place] [address] [place] [id number] [place] [address] 06433 -4071 Jan, Left otitis media, unspecified chronicity, unspecified otitis media type H66.92 [place] [address] [place] [id number] [place] [address] 59849- 3270 08 Jan, 2016 Dysthymic disorder F34.1 and Generalized anxiety disorder F41.1 [place] [address] 35522- 7776 Dec, Dental examination Z01.20 [place] [address] 18767- 2993 Dec, Dysthymic disorder F34.1 and Generalized anxiety disorder F41.1 [place] [address] [place] [id number] [place] [address] 90823- 0827 Dec, Gastroesophageal reflux disease without esophagitis K21.9 and Arthritis M19.90 [place] [address] [place] [id number] [place] [address] 58646- 7313 Dec, Dysthymic disorder F34.1 and Generalized anxiety disorder F41.1 [facility] [place] [address] 03483 -5476 Dec, Gingivitis K05.10 [place] [address] [place] [id number] [place] [address] 20326- 6435 07 Dec, 2015 Essential hypertension I10 ; Epigastric pain R10.13 ; Mixed hyperlipidemia E78.2 ; Proptosis H05.20 and Gastroesophageal reflux disease without esophagitis K21.9 [facility] [address] [place] [id number] [place] [address] 03597- 7146 Dec, [place] [address] [place] [phone]- 0312 30 Nov, 2015 Dysthymic disorder F34.1 [facility] [address] 21972 -6474 Nov, Epigastric pain R10.13 and Gastroesophageal reflux disease , esophagitis presence not specified K21.9 [place] [address] [place] [id number] [place] [address] 57122- 6429 Nov, Depression, unspecified depression type F32.9 [place] [address] 78633- 2023 Nov, Essential hypertension I10 ; Mixed hyperlipidemia E78.2 ; Proptosis H05.20 ; Gastroesophageal reflux disease without esophagitis K21.9 and Depression, unspecified depression type F32.9 [facility] [address] [place] [id number] [place] [address] 75384- 5918 Nov, [facility] [place] [address] [place] [id number] [place] [address] 97281 -3809 Nov, Sore in mouth K13.79 [facility] [place] [address] [place] [id number] [place] [address] 12863 -9156 14 Nov, 2015 Left-sided chest wall pain R07.89 and Pain of right calf M79.661 [facility] [address] [place] [id number] [place] [address] 89885- 3492 06 Nov, 2015 Gastroesophageal reflux disease, esophagitis presence not specified K21.9 and Environmental allergies Z91.09 [facility] [address] [place] [address] [phone] October, Dental examination Z01.20 IMMUNIZATIONS No Known Immunizations SOCIAL HISTORY Never Assessed REASON FOR VISIT BH intake WB-MA PLAN OF CARE Activity Details Follow Up 4 Weeks Reason: VITAL SIGNS Height 70 in 2017-12-03 Weight 319 lbs 2017-12-03 Heart Rate 110 bpm 2017-12-03 Respiratory Rate 20 2017-12-03 BMI 45.77 kg/m2 2017-12-03 Blood pressure systolic 128 mmHg 2017-12-03 Blood pressure diastolic 84 mmHg 2017-12-03 MEDICATIONS Medication Instructions Dosage Frequency Start Date End Date Duration Status Protonix 40 mg Orally Once a day 1 tablet 24h 30 Active Pravastatin Sodium 10 mg Orally Once a day 1 tablet 24h 30 days Active Lisinopril 10 mg Orally Once a day 1 tablet 24h 30 days Active Uloric 80 MG Orally Once a day 1 tablet 24h Active Aripiprazole 10 MG Orally Once a day 1 tablet 24h 30 days Active Mens Multi Vitamin & Mineral Active SudoGest 60 mg Orally every 6 hrs 1 tablet as needed 6h October, 07 days Active Blood Glucose Test Strip DX- E11.9 and lancets Fasting and 2 hours after 1 meal 3 times weekly. test blood sugar Aug, Active Eye Health Formula 180-15-5 MG Active Metformin HCl 500 mg Orally Twice a day 1 tablet with meals 12h Aug, 30 day(s) Active Blood Glucose Monitor System w/Device DX- E11.9 2 times a day test blood sugar 12h Aug, Active RESULTS No Results PROCEDURES Procedure Date Ordered Result Body Site [facility] VISIT ESTABLISHED PATIENT December 03, 2017 INSTRUCTIONS MEDICATIONS ADMINISTERED No Known [...]
--- OUTSIDE RECORDS SUMMARY | 2018-06-01 09:56 | XMS REPORT ---
Author Author CLARIBELNAZIA Organization [facility] Address [address] [place] [address] Care Team Providers Care Customer Security Clerk Name Role Phone RIVERANAZIA FERREIRA Unavailable PROBLEMS Type Condition ICD9-CM Code YST22-NL Code Onset Dates Condition Status SNOMED Code Problem Acute gout of right ankle, 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 Active 870486924 Problem Vertigo R42 Active 096740748 Problem Type 2 diabetes mellitus without complication, without long-term current use of insulin E11.9 Active 599578285 Problem Severe episode of recurrent major depressive disorder, with psychotic features F33.3 Active 22756915 Problem History of gout Z87.39 Active 603392066 Problem Hammertoe of left foot M20.42 Active 911893412 Problem Exophthalmia H05.20 Active 30913057 Problem Systemic lupus erythematosus, unspecified SLE type, unspecified organ involvement status M32.9 Active 59880735 Problem Hammertoe of right foot M20.41 Active 776096462 Problem Gastroesophageal reflux disease without esophagitis K21.9 Active 675252987 Problem Essential hypertension I10 Active 44059705 Problem Generalized anxiety disorder F41.1 Active 39866460 Problem Arthritis M19.90 Active 4191520 Problem Mixed hyperlipidemia E78.2 Active 876493184 Problem Gingivitis K05.10 Active 10118652 Problem Dysthymic disorder F34.1 Active 37411948 Problem Acute left-sided low back pain with left-sided sciatica M54.42 Active 861720176 ALLERGIES No Information ENCOUNTERS Encounter Location Date Diagnosis [facility] [id number] [address] Mar, [facility] [id number], [place] [address] Feb, [facility] [id number] [place] [address] Feb, [place] [id number] [place] [address] 30226[address] 8[address] Jan, Severe episode of recurrent major depressive disorder, with psychotic features F33.3 and BMI 45.0-49.9, adult Z68.42 [place] [id number] [place] [address]27[address] Dec, Severe episode of recurrent major depressive disorder, with psychotic features F33.3 and BMI 45.0-49.9, adult Z68.42 [place] [id number] [place] [address] 80765- 0627 Dec, Onychomycosis B35.1 ; Hammertoe of left foot M20.42 ; Hammertoe of right foot M20.41 and Type 2 diabetes mellitus without complication , without long-term current use of insulin E11.[address] [address] 13 Nov, 2017 Severe episode of recurrent major depressive disorder, with psychotic features F33.3 and BMI 45.0-49.9, adult Z68.42 [place] [address] [id number] [place] [address] 78547- 9[address] 08 Nov, 2017 Medicare annual wellness visit, [...] gout Z87.39 and Encounter for immunization Z23 [address] [id number] [place] [address] 91758- 9013 October, [place] [id number] [place] [address] 52982- 0581 October, [facility] [id number] [place] [address] [id number] Sep, Dental examination Z01.20 [facility] [id number] [place] [address] 65818- 2450 Sep, [facility] [id number] [place] [address] 50945- 9151 Aug, Dental examination Z01.20 [facility] [id number] [place] [address] 55580- 7348 Aug, [place] [address] [address] Aug, [facility] [address] [address] Aug, Aphthous stomatitis K12.0 and BMI 45.0-49.9, adult Z68.[address] [address]- 1773 Aug, [place] [address] [address] Aug, Vertigo R42 ; Impacted cerumen of both ears H61.23 ; Abnormal RBC indices R71.8 ; Exophthalmia H05.20 ; Elevated glucose R73.09 ; Type 2 diabetes mellitus without complication, without long-term current use of insulin E11.9 and BMI 45.0-49.9, adult Z68.42 [place] [id number] [place] [address] 12236- 8464 Jul, Dizziness R42 and BMI 45.0-49.9, adult Z68.42 [facility] [id number] [place] [address] 71231 -4378 Jun, Vertigo R42 and BMI 45.0-49.9, adult Z68.42 [facility] [id number] [place] [address] [id number] May, Dental caries K02.9 [facility] [id number] [place] [address] [id number] May, Encounter for dental exam and cleaning w/o abnormal findings Z01.20 [facility] [id number] [place] [address] 23558- 4386 07 Apr, 2017 Acute non-recurrent maxillary sinusitis J01.00 [facility] [id number] [place] [address] [phone]- 9356 09 Mar, 2017 [facility] [address] 0[address] 11 Feb, 2017 Acute gout of right ankle, 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 [facility] [id number] [place] [address] 06437- 4221 Feb, [facility] [id number] [place] [address] [phone] Jan, Dental examination Z01.20 [facility] [id number] [place] [address] [phone] Jan, Encounter for dental examination and cleaning without abnormal findings Z01.20 [facility] [id number] [place] [address] [id number] Jan, Dental examination Z01.20 [facility] [id number] [place] [address] 98369- 7210 Jan, Acute non-recurrent frontal sinusitis J01.10 ; Essential hypertension I10 ; Mixed hyperlipidemia E78.2 ; Sore throat J02.9 and Gastroesophageal reflux disease without esophagitis K21.9 [facility] [id number] [place] [address] [id number] Dec, [facility] [id number] [place] [address] 02786 -0749 Dec, Other secondary acute gout of multiple sites M10.49 and Acute upper respiratory infection, unspecified J06.9 [facility] [id number] [place] [address] 35617 -6649 Nov, Sore throat J02.9 ; Acute nasopharyngitis (common cold) J00 and Acute left-sided low back pain with left-sided sciatica M54.42 [facility] [id number] [place] [address] [id number] October, Encounter for dental examination and cleaning without abnormal findings Z01.20 [facility] [id number] [place] [address] [phone] -4796 October, Acute upper respiratory infection, unspecified J06.9 and Sore throat J02.9 [facility] [address] [id number] Sep, Encounter for dental examination and cleaning without abnormal findings Z01.20 [facility] [address] [address]- [address] Sep, Gastroesophageal reflux disease without esophagitis K21.9 [facility] [address] [address] Aug, Sore throat J02.9 and Acute idiopathic gout of right wrist M10.031 [facility] [id number] [place] [address] [id number] Jul, Encounter for dental examination and cleaning without abnormal findings Z01.20 [facility] [id number] [place] [address] 62446- 9606 Jun, [facility] [id number] [place] [address] 21056- 6752 Jun, Lower abdominal pain R10.30 [facility] [address] [id number] Jun, Encounter for dental examination and cleaning without abnormal findings Z01.20 [facility] [address] 6[address]27- 9478 May, Chronic kidney disease, unspecified stage N18.9 and Mouth ulcer K12.1 [facility] [address] 27633- 8436 May, Chronic kidney disease, unspecified stage N18.9 [place] [address] 116[address]- 2505 22 May, 2016 Encounter for dental examination and cleaning without abnormal findings Z01.20 [place] [address] 39[address]- 3226 May, Encounter for dental examination and cleaning without abnormal findings Z01.20 [place] [address] 94924- 6392 16 May, 2016 Hypokalemia E87.6 ; Essential hypertension I10 ; Gastroesophageal reflux disease without esophagitis K21.9 and Right-sided thoracic back pain, unspecified chronicity M54.6 [facility] IN [place] [address] [address] May, Oral candidiasis B37.[address] 7[address]- [address]85 May, [place] [address] [address] May, Cracked tooth K03.81 and Retained dental root K08.[address] [address]- [address] May, Dental examination Z01.20 [facility] IN [place] [address] 37[address] 28 Apr, 2016 Acute right flank pain R10.9 and Acute left lower quadrant pain R10.32 [place] [address] 32[address]- [address] 08 Apr, 2016 Bronchitis J40 [place] [address] 81848- 3997 13 Mar, 2016 Dental examination Z01.20 [place] [address] 00799- 4153 07 Mar, 2016 Dysthymic disorder F34.1 [facility] IN [place] [address] 68[address] -3589 05 Mar, 2016 Gingivitis K05.10 and Torticollis M43.6 [place] [id number] [place] [address] 67326- 4865 08 Feb, 2016 Dysthymic disorder F34.1 [facility] [address] [place] [id number] [place] [address] 22937 -5782 07 Feb, 2016 Lymph nodes enlarged R59.9 [facility] IN [place] [address] 638[address] -7664 Jan, Left otitis media, unspecified chronicity, unspecified otitis media type H66.92 [place] [address] 23171- 3217 Jan, Dysthymic disorder F34.1 and Generalized anxiety disorder F41.1 [place] [address] 73144- 8333 Dec, Dental examination Z01.20 [place] [address] 23270- 9334 Dec, Dysthymic disorder F34.1 and Generalized anxiety disorder F41.1 [place] [id number] [place] [address] 89906- 4868 Dec, Gastroesophageal reflux disease without esophagitis K21.9 and Arthritis M19.90 [place] [id number] [place] [address] 09105- 8775 Dec, Dysthymic disorder F34.1 and Generalized anxiety disorder F41.1 [facility] [address] [place] [id number] [place] [address] 86314 -4153 Dec, Gingivitis K05.10 [place] [id number] [place] [address] 20742- 4384 Dec, Essential hypertension I10 ; Epigastric pain R10.13 ; Mixed hyperlipidemia E78.2 ; Proptosis H05.20 and Gastroesophageal reflux disease without esophagitis K21.9 [place] [id number] [place] [address] 15387- 9466 Dec, [place] [address] [phone]- [address]108 30 Nov, 2015 Dysthymic disorder F34.1 [facility] [place] [address] 12[address] -5758 Nov, Epigastric pain R10.13 and Gastroesophageal reflux disease , esophagitis presence not specified K21.9 [place] [address] 26992- 9635 24 Nov, 2015 Depression, unspecified depression type F32.9 [place] [address] 56960- 7581 24 Nov, 2015 Essential hypertension I10 ; Mixed hyperlipidemia E78.2 ; Proptosis H05.20 ; Gastroesophageal reflux disease without esophagitis K21.9 and Depression, unspecified depression type F32.9 [place] [id number] [place] [address] 57019- 8436 Nov, [facility] [place] [address] 28628 [address] Nov, Sore in mouth K13.79 [facility] [place] [address] 64362 -1749 14 Nov, 2015 Left-sided chest wall pain R07.89 and Pain of right calf M79.661 [place] [id number] [place] [address] 67537- 9610 06 Nov, 2015 Gastroesophageal reflux disease, esophagitis presence not specified K21.9 and Environmental allergies Z91.09 [facility] [address] [id number] October, Dental examination Z01.20 IMMUNIZATIONS No Known Immunizations SOCIAL HISTORY Never Assessed REASON FOR VISIT BH f/u ROBERT PLAN OF CARE Activity Details Follow Up 4 Weeks Reason: VITAL SIGNS Height 70 in 2018-01-01 Weight 320 lbs 2018-01-01 Heart Rate 106 bpm 2018-01-01 Respiratory Rate 20 2018-01-01 BMI 45.91 kg/m2 2018-01-01 Blood pressure systolic 130 mmHg 2018-01-01 Blood pressure diastolic 86 mmHg 2018-01-01 MEDICATIONS Medication Instructions Dosage Frequency Start Date End Date Duration Status Lisinopril 10 mg Orally Once a day 1 tablet 24h 30 days Active Uloric 80 MG Orally Once a day 1 tablet 24h Active Pravastatin Sodium 10 mg Orally Once a day 1 tablet 24h 30 days Active Aripiprazole 10 MG Orally Once a day 1 tablet 24h 30 days Active Eye Health Formula 180-15-5 MG Active Protonix 40 mg Orally Once a day 1 tablet 24h 30 Active Metformin HCl 500 mg Orally Twice a day 1 tablet with meals 12h Aug, 30 day(s) Active Blood Glucose Monitor System w/Device DX- E11.9 2 times a day test blood sugar 12h Aug, Active Mens Multi Vitamin & Mineral Active Blood Glucose Test Strip DX- E11.9 and lancets Fasting and 2 hours after 1 meal 3 times weekly. test blood sugar Aug, Active SudoGest 60 mg Orally every 6 hrs 1 tablet as needed 6h October, 07 days Active RESULTS No Results PROCEDURES Procedure Date Ordered Result Body Site [facility] VISIT ESTABLISHED PATIENT January 01, 2018 INSTRUCTIONS MEDICATIONS ADMINISTERED No Known Medications [...]
--- OUTSIDE RECORDS SUMMARY | 2018-06-01 09:56 | XMS REPORT ---
Author Author CODIE STEVE Organization [facility] Address [address] [place] [address] Care Team Providers Care Psychiatric Social Worker Supervisor Name Role Phone STEVE MACKAY Unavailable PROBLEMS Type Condition ICD9-CM Code MVP27-FA Code Onset Dates Condition Status SNOMED Code Problem Acute gout of right ankle, 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 Active 660409419 Problem Vertigo R42 Active 456199199 Problem Type 2 diabetes mellitus without complication, without long-term current use of insulin E11.9 Active 598666233 Problem Severe episode of recurrent major depressive disorder, with psychotic features F33.3 Active 88637137 Problem History of gout Z87.39 Active 275040927 Problem Hammertoe of left foot M20.42 Active 770097048 Problem Exophthalmia H05.20 Active 22623991 Problem Systemic lupus erythematosus, unspecified SLE type, unspecified organ involvement status M32.9 Active 06969767 Problem Hammertoe of right foot M20.41 Active 934253041 Problem Gastroesophageal reflux disease without esophagitis K21.9 Active 560767755 Problem Essential hypertension I10 Active 38445805 Problem Generalized anxiety disorder F41.1 Active 84955445 Problem Arthritis M19.90 Active 9829804 Problem Mixed hyperlipidemia E78.2 Active 377605213 Problem Gingivitis K05.10 Active 03141173 Problem Dysthymic disorder F34.1 Active 31060625 Problem Acute left-sided low back pain with left-sided sciatica M54.42 Active 430043171 ALLERGIES No Information ENCOUNTERS Encounter Location Date Diagnosis [facility] [address] [facility] [id number], [place] [address] Mar, [facility] [address] [facility] [id number], [place] [address] Feb, [facility] [address] [id number], [place] [address] Feb, [place] [id number] [place] [address]87[address] Jan, Severe episode of recurrent major depressive disorder, with psychotic features F33.3 and BMI 45.0-49.9, adult Z68.42 [place] [address] [place] [address] 55380- 7836 Dec, Severe episode of recurrent major depressive disorder, with psychotic features F33.3 and BMI 45.0-49.9, adult Z68.42 [place] [address] [place] [id number] [place] [address] 20461- 3563 Dec, Onychomycosis B35.1 ; Hammertoe of left foot M20.42 ; Hammertoe of right foot M20.41 and Type 2 diabetes mellitus without complication , without long-term current use of insulin E11.9 [place] [id number] [place] [address] 13007- 8240 13 Nov, 2017 Severe episode of recurrent major depressive disorder, with psychotic features F33.3 and BMI 45.0-49.9, adult Z68.42 [place] [address] [place] [id number] [place] [address] 84243- 9915 08 Nov, 2017 Medicare annual wellness visit, [...] gout Z87.39 and Encounter for immunization Z23 [place] [address] [place] [id number] [place] [address] 08480- 3594 October, [place] [address] [place] [id number] [place] [address] 71992- 3918 October, [facility] [address] [place] [address] [phone] Sep, Dental examination Z01.20 [facility] [address], [place] [address] 11 Sep, 2017 [facility] [address] [place] [id number] [place] [address] 64194- 1463 Aug, Dental examination Z01.20 [facility] [address] [place] [id number] [place] [address] 76012- 1380 Aug, [facility] [address] [place] [id number] [place] [address] 48179- 1823 Aug, [facility] [place] [address] [place] [address] [id number] [place] [address] 71717 -3241 14 Aug, 2017 Aphthous stomatitis K12.0 and BMI 45.0-49.9, adult Z68.42 [place] [address] [place] [id number] [place] [address] 14459- 1365 Aug, [place] [address] [address]66- [address] 05 Aug, 2017 Vertigo R42 ; Impacted cerumen of both ears H61.23 ; Abnormal RBC indices R71.8 ; Exophthalmia H05.20 ; Elevated glucose R73.09 ; Type 2 diabetes mellitus without complication, without long-term current use of insulin E11.9 and BMI 45.0-49.9, adult Z68.42 [place] [address] [place] [address] 45490- 5868 Jul, Dizziness R42 and BMI 45.0-49.9, adult Z68.42 [facility] [address] [place] [address] 35727 -5044 Jun, Vertigo R42 and BMI 45.0-49.9, adult Z68.42 [facility] [address] [place] [id number] [place] [address] [phone] May, Dental caries K02.9 [facility] [address] [place] [id number] [place] [address] [phone] May, Encounter for dental exam and cleaning w/o abnormal findings Z01.20 [facility] [address] [place] [address] 33991- 3186 07 Apr, 2017 Acute non-recurrent maxillary sinusitis J01.00 [facility] [address] [place] [address] [id number] [place] [address] 22554- 5296 09 Mar, 2017 [facility] [address] [place] [address] [id number] [place] [address] 157036- 0609 11 Feb, 2017 Acute gout of right ankle, 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 [facility] [address] [place] [address] [id number] [place] [address] 61665- 8527 Feb, [facility] [address] [place] [address] [id number] [place] [address] [id number] Jan, Dental examination Z01.20 [facility] [address] [place] [address] [id number] [place] [address] [phone] Jan, Encounter for dental examination and cleaning without abnormal findings Z01.20 [facility] [address] [place] [id number] [place] [address] [phone] Jan, Dental examination Z01.20 [facility] [address] [place] [address] [id number] [place] [address] 71176- 5006 Jan, Acute non-recurrent frontal sinusitis J01.10 ; Essential hypertension I10 ; Mixed hyperlipidemia E78.2 ; Sore throat J02.9 and Gastroesophageal reflux disease without esophagitis K21.9 [facility] [address] [place] [id number] [place] [address] [phone] Dec, [facility] [address] [place] [address] 61184 -2817 Dec, Other secondary acute gout of multiple sites M10.49 and Acute upper respiratory infection, unspecified J06.9 [facility] [address] [place] [address] 62552 -8135 Nov, Sore throat J02.9 ; Acute nasopharyngitis (common cold) J00 and Acute left-sided low back pain with left-sided sciatica M54.42 [facility] [address] [place] [address] [id number] October, Encounter for dental examination and cleaning without abnormal findings Z01.20 [facility] [address] [place] [address] [id number] [place] [address] [phone] -2056 October, Acute upper respiratory infection, unspecified J06.9 and Sore throat J02.9 [facility] [address] [id number] Sep, Encounter for dental examination and cleaning without abnormal findings Z01.20 [facility] [address] 98140- 5498 Sep, Gastroesophageal reflux disease without esophagitis K21.9 [facility] [address] 14521 -5885 Aug, Sore throat J02.9 and Acute idiopathic gout of right wrist M10.031 [facility] [address] [place] [id number] [place] [address] [phone] Jul, Encounter for dental examination and cleaning without abnormal findings Z01.20 [facility] [address] [place] [id number] [place] [address] 12709- 0636 Jun, [facility] [address] [place] [id number] [place] [address] 33822- 2934 Jun, Lower abdominal pain R10.30 [facility] [address] [id number] Jun, Encounter for dental examination and cleaning without abnormal findings Z01.20 [facility] [address] 95315- 4915 May, Chronic kidney disease, unspecified stage N18.9 and Mouth ulcer K12.1 [facility] [address] [place] [id number] [place] [address] 93167- 7854 May, Chronic kidney disease, unspecified stage N18.9 [place] [address] 71031- 7621 May, Encounter for dental examination and cleaning without abnormal findings Z01.20 [place] [address] 57695- 7413 May, Encounter for dental examination and cleaning without abnormal findings Z01.20 [place] [address] 74985- 1545 16 May, 2016 Hypokalemia E87.6 ; Essential hypertension I10 ; Gastroesophageal reflux disease without esophagitis K21.9 and Right-sided thoracic back pain, unspecified chronicity M54.6 [facility] [place] [address] 91754 -0056 May, Oral candidiasis B37.0 [place] [address] 69156- 4885 May, [place] [address] 22920- 0893 May, Cracked tooth K03.81 and Retained dental root K08.3 [place] [address] 96929- 7330 May, Dental examination Z01.20 [facility] [place] [address] 02585 -8474 28 Apr, 2016 Acute right flank pain R10.9 and Acute left lower quadrant pain R10.32 [place] [address] 22326- 4264 08 Apr, 2016 Bronchitis J40 [place] [address] 15110- 0999 13 Mar, 2016 Dental examination Z01.20 [place] [address] 87031- 4589 07 Mar, 2016 Dysthymic disorder F34.1 [facility] [address] 93758 -2376 05 Mar, 2016 Gingivitis K05.10 and Torticollis M43.6 [place] [address] 76016- 3103 08 Feb, 2016 Dysthymic disorder F34.1 [facility] [place] [address] 23810 -6675 07 Feb, 2016 Lymph nodes enlarged R59.9 [facility] [place] [address] 44719 -2710 Jan, Left otitis media, unspecified chronicity, unspecified otitis media type H66.92 [place] [address] 03764- 9790 Jan, Dysthymic disorder F34.1 and Generalized anxiety disorder F41.1 [place] [address] 52983- 8325 Dec, Dental examination Z01.20 [place] [address] 80832- 9158 Dec, Dysthymic disorder F34.1 and Generalized anxiety disorder F41.1 [place] [address] 66503- 1016 Dec, Gastroesophageal reflux disease without esophagitis K21.9 and Arthritis M19.90 [place] [address] 38999- 6974 Dec, Dysthymic disorder F34.1 and Generalized anxiety disorder F41.1 [facility] [place] [address] [place] [id number] [place] [address] 11532 -7699 Dec, Gingivitis K05.10 [place] [address] 79691- 9125 Dec, Essential hypertension I10 ; Epigastric pain R10.13 ; Mixed hyperlipidemia E78.2 ; Proptosis H05.20 and Gastroesophageal reflux disease without esophagitis K21.9 [place] [address] [place] [id number] [place] [address] 89341- 5148 Dec, [facility] [address] [place] [id number] 8667 30 Nov, 2015 Dysthymic disorder F34.1 [facility] [address] 16344 -0702 Nov, Epigastric pain R10.13 and Gastroesophageal reflux disease , esophagitis presence not specified K21.9 [facility] [address] 22295- 9628 Nov, Depression, unspecified depression type F32.9 [place] [address] 39421- 3949 24 Nov, 2015 Essential hypertension I10 ; Mixed hyperlipidemia E78.2 ; Proptosis H05.20 ; Gastroesophageal reflux disease without esophagitis K21.9 and Depression, unspecified depression type F32.9 [facility] [address] 57932- 4282 Nov, [facility] [place] [address] 05299 -7443 Nov, Sore in mouth K13.79 [facility] [place] [address] 21952 -5509 14 Nov, 2015 Left-sided chest wall pain R07.89 and Pain of right calf M79.661 [facility] [address] 72820- 5055 06 Nov, 2015 Gastroesophageal reflux disease, esophagitis presence not specified K21.9 and Environmental allergies Z91.09 [facility] [address] [id number] October, Dental examination Z01.20 IMMUNIZATIONS No Known Immunizations SOCIAL HISTORY Never Assessed REASON FOR VISIT toe nail trimming-Diabetic PLAN OF CARE Activity Details Follow Up 3 Months Reason: VITAL SIGNS Height 70 in 2017-12-26 Blood pressure systolic 126 mmHg 2017-12-26 Blood pressure diastolic 88 mmHg 2017-12-26 MEDICATIONS Unknown Medications RESULTS No Results PROCEDURES Procedure Date Ordered Result Body Site DEBRIDE NAIL, 6 OR MORE December 26, 2017 [facility] VISIT ESTABLISHED PATIENT December 26, 2017 INSTRUCTIONS MEDICATIONS ADMINISTERED No Known Medications [...]
--- OUTSIDE RECORDS SUMMARY | 2018-06-01 09:57 | XMS REPORT ---
Author Author EDGARDO BATES [facility] Address [address] [place] [address] Care Team Providers Care Music Leader Name Role Phone EDGARDO BATES Unavailable PROBLEMS Type Condition ICD9-CM Code ZRS56-UQ Code Onset Dates Condition Status SNOMED Code Problem Acute gout of right ankle, 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 Active 532851096 Problem Vertigo R42 Active 545280507 Problem Type 2 diabetes mellitus without complication, without long-term current use of insulin E11.9 Active 395039372 Problem Severe episode of recurrent major depressive disorder, with psychotic features F33.3 Active 40599637 Problem History of gout Z87.39 Active 091991213 Problem Hammertoe of left foot M20.42 Active 976414497 Problem Exophthalmia H05.20 Active 10904876 Problem Systemic lupus erythematosus, unspecified SLE type, unspecified organ involvement status M32.9 Active 75695136 Problem Hammertoe of right foot M20.41 Active 065435770 Problem Gastroesophageal reflux disease without esophagitis K21.9 Active 735736304 Problem Essential hypertension I10 Active 29200061 Problem Generalized anxiety disorder F41.1 Active 12076084 Problem Arthritis M19.90 Active 3728077 Problem Mixed hyperlipidemia E78.2 Active 433839917 Problem Gingivitis K05.10 Active 74301433 Problem Dysthymic disorder F34.1 Active 55712186 Problem Acute left-sided low back pain with left-sided sciatica M54.42 Active 521152605 ALLERGIES No Information ENCOUNTERS Encounter Location Date Diagnosis [facility] [address] [facility] [id number] [address] Mar, [facility] [address] [id number] [address] Jan, [facility] [address] [id number], [place] [address] Dec, Severe episode of recurrent major depressive disorder, with psychotic features F33.3 and BMI 45.0-49.9, adult Z68.42 [place] [id number] [place] [address]254[address] 2433 Dec, Onychomycosis B35.1 ; Hammertoe of left foot M20.42 ; Hammertoe of right foot M20.41 and Type 2 diabetes mellitus without complication , without long-term current use of insulin E11.9 [place] [id number] [place] [address] 61581- 4554 Nov, Severe episode of recurrent major depressive disorder, with psychotic features F33.3 and BMI 45.0-49.9, adult Z68.42 [place] [id number] [place] [address] 45727- 9754 Nov, Medicare annual wellness visit, initial Z00.00 ; Type 2 diabetes mellitus without complication, without long-term current use of insulin E11.9 ; Generalized anxiety disorder F41.1 ; Essential hypertension I10 ; Mixed hyperlipidemia E78.2 ; Arthritis M19.90 ; Dysthymic disorder F34.1 ; Systemic lupus erythematosus, unspecified SLE type, unspecified organ involvement status M32.9 ; History of gout Z87.39 and Encounter for immunization Z23 [place] [id number] [place] [address]8832[address] 5458 October, [place] [id number] [place] [address] 94942- 9903 October, [facility] [address] [place] [address] [phone] Sep, Dental examination Z01.20 [place] [id number] [place] [address] 25634- 9742 Sep, [place] [id number] [place] [address]93- 1941 Aug, Dental examination Z01.20 [place] [id number] [place] [address] 36262- 3949 Aug, [facility] [id number] [place] [address] 00175- 1116 Aug, [facility] WALK IN [facility] [id number] [place] [address] 02872 -[address] 14 Aug, 2017 Aphthous stomatitis K12.0 and BMI 45.0-49.9, adult Z68.42 [place] [address] [address]- [address] 05 Aug, 2017 [place] [id number] [place] [address] 56693- 4909 05 Aug, 2017 Vertigo R42 ; Impacted cerumen of both ears H61.23 ; Abnormal RBC indices R71.8 ; Exophthalmia H05.20 ; Elevated glucose R73.09 ; Type 2 diabetes mellitus without complication, without long-term current use of insulin E11.9 and BMI 45.0-49.9, adult Z68.42 [facility] [id number] [place] [address] 76996- 0213 Jul, Dizziness R42 and BMI 45.0-49.9, adult Z68.42 [facility] IN [facility] [id number] [place] [address] 77414 -9718 Jun, Vertigo R42 and BMI 45.0-49.9, adult Z68.42 [facility] [id number] [place] [address] [phone] May, Dental caries K02.9 [facility] [id number] [place] [address] [phone] May, Encounter for dental exam and cleaning w/o abnormal findings Z01.20 [place] [address] [address] 07 Apr, 2017 Acute non-recurrent maxillary sinusitis J01.00 [place] [id number] [place] [address] 56795- 0622 09 Mar, 2017 [place] [id number], [place] [address] 11 Feb, 2017 Acute gout of right ankle, 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 [facility] [id number] [place] [address] 29654- 6456 Feb, [facility] [id number] [place] [address] [id number] Jan, Dental examination Z01.20 [facility] [address] [id number] Jan, Encounter for dental examination and cleaning without abnormal findings Z01.20 [facility] [id number] [place] [address] [id number] Jan, Dental examination Z01.20 [facility] [id number] [place] [address] 80403- 2256 Jan, Acute non-recurrent frontal sinusitis J01.10 ; Essential hypertension I10 ; Mixed hyperlipidemia E78.2 ; Sore throat J02.9 and Gastroesophageal reflux disease without esophagitis K21.9 [facility] [place] [id number] [place] [address] [id number] Dec, [facility]ALK IN [facility] [id number] [place] [address] 62998 -3122 Dec, Other secondary acute gout of multiple sites M10.49 and Acute upper respiratory infection, unspecified J06.9 [facility] IN [facility] [id number] [place] [address] 22401 -8546 Nov, Sore throat J02.9 ; Acute nasopharyngitis (common cold) J00 and Acute left-sided low back pain with left-sided sciatica M54.42 [facility] [id number] [place] [address] [id number] October, Encounter for dental examination and cleaning without abnormal findings Z01.20 [facility] IN [facility] [id number] [place] [address] 76887 -7056 October, Acute upper respiratory infection, unspecified J06.9 and Sore throat J02.9 [facility] [address] [place] [address] [phone] Sep, Encounter for dental examination and cleaning without abnormal findings Z01.20 [facility] [id number] [place] [address] 97858- 4475 Sep, Gastroesophageal reflux disease without esophagitis K21.9 [facility] IN [facility] [id number] [place] [address] 50191 -2337 Aug, Sore throat J02.9 and Acute idiopathic gout of right wrist M10.031 [facility] [address] [id number] Jul, Encounter for dental examination and cleaning without abnormal findings Z01.20 [facility] [id number] [place] [address] 92741- 4701 Jun, [facility] [address] 57011[address] 8[address] Jun, Lower abdominal pain R10.30 [facility] [id number] [place] [address] [id number] Jun, Encounter for dental examination and cleaning without abnormal findings Z01.20 [facility] [address] [place] [address] 60790- 9041 May, Chronic kidney disease, unspecified stage N18.9 and Mouth ulcer K12.1 [facility] [id number] [place] [address] 08078- 7121 May, Chronic kidney disease, unspecified stage N18.9 [facility] [id number] [place] [address] 08730- 7741 May, Encounter for dental examination and cleaning without abnormal findings Z01.20 [facility] [address] [place] [address] 05319- 8633 May, Encounter for dental examination and cleaning without abnormal findings Z01.20 [facility] [address] [address] 16 May, 2016 Hypokalemia E87.6 ; Essential hypertension I10 ; Gastroesophageal reflux disease without esophagitis K21.9 and Right-sided thoracic back pain, unspecified chronicity M54.6 [facility] W[facility] IN [address] [address] 13 May, 2016 Oral candidiasis B37.[address] [address] May, [address] [address]- [address] May, Cracked tooth K03.81 and Retained dental root K08.[address] 31498- [address] May, Dental examination Z01.20 [facility] [place] [address] [address] Apr, Acute right flank pain R10.9 and Acute left lower quadrant pain R10.[address] 10922- 0463 08 Apr, [address] J[address] 18312- 0478 13 Mar, 2016 Dental examination Z01.[address] 77768- 4114 Mar, Dysthymic disorder F34.1 [facility] W[facility] IN [address] 00054 [address]2097 05 Mar, 2016 Gingivitis K05.10 and Torticollis M43.[address] 93578- 8489 08 Feb, 2016 Dysthymic disorder F34.1 [facility] W[facility] IN [address] 741[address]28[address] Feb, Lymph nodes enlarged R59.9 [facility]ALK IN [facility] [id number] [place] [address] 81635 -8508 Jan, Left otitis media, unspecified chronicity, unspecified otitis media type H66.92 [place] [id number] [place] [address] 71963- 3031 08 Jan, 2016 Dysthymic disorder F34.1 and Generalized anxiety disorder F41.1 [place] [address] 56641- 3740 Dec, Dental examination Z01.20 [place] [address] 14885- 4887 Dec, Dysthymic disorder F34.1 and Generalized anxiety disorder F41.1 [place] [address] 28657- 1029 Dec, Gastroesophageal reflux disease without esophagitis K21.9 and Arthritis M19.90 [place] [address] 75934- 7324 Dec, Dysthymic disorder F34.1 and Generalized anxiety disorder F41.1 [facility] [address] [place] [id number] [place] [address] 08730 -3941 Dec, Gingivitis K05.10 [place] [id number] [place] [address] 39784- 8868 Dec, Essential hypertension I10 ; Epigastric pain R10.13 ; Mixed hyperlipidemia E78.2 ; Proptosis H05.20 and Gastroesophageal reflux disease without esophagitis K21.9 [place] [id number] [place] [address] 84025- 5763 Dec, [place] [id number] [place] [address] 95060- 4684 Nov, Dysthymic disorder F34.1 [facility] WALK IN [facility] [id number] [place] [address] 51294 -6864 Nov, Epigastric pain R10.13 and Gastroesophageal reflux disease , esophagitis presence not specified K21.9 [place] [id number] [place] [address] 24 Nov, 2015 Depression, unspecified depression type F32.9 [place] [address] 90644- 3973 24 Nov, 2015 Essential hypertension I10 ; Mixed hyperlipidemia E78.2 ; Proptosis H05.20 ; Gastroesophageal reflux disease without esophagitis K21.9 and Depression, unspecified depression type F32.9 [place] [address] 01483- 9106 Nov, [facility] WALK [place] [address] 80137 [address]0107 21 Nov, 2015 Sore in mouth K13.79 [facility] WALK IN [address] 32724 -7681 14 Nov, 2015 Left-sided chest wall pain R07.89 and Pain of right calf M79.661 [place] [id number] [place] [address] 24177- 0799 06 Nov, 2015 Gastroesophageal reflux disease, esophagitis presence not specified K21.9 and Environmental allergies Z91.09 [facility] [address] [id number] October, Dental examination Z01.20 IMMUNIZATIONS No Known Immunizations SOCIAL HISTORY Never Assessed REASON FOR VISIT 1 wk f/u DM Ed PLAN OF CARE VITAL SIGNS MEDICATIONS Unknown [...]
--- OUTSIDE RECORDS SUMMARY | 2018-06-01 09:57 | XMS REPORT ---
Author Author ADINA ZAMBRANO [facility] Address [address] [place] [address] Phone Unavailable Care Team Providers Care Cake Decorator Name Role Phone ADINA ZAMBRANO Unavailable Unavailable PROBLEMS Type Condition ICD9-CM Code [id number] Code Onset Dates Condition Status SNOMED Code Problem Acute gout of right ankle, 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 Active 872940655 Problem Vertigo R42 Active 759461986 Problem Type 2 diabetes mellitus without complication, without long-term current use of insulin E11.9 Active 249193536 Problem Severe episode of recurrent major depressive disorder, with psychotic features F33.3 Active 78618899 Problem History of gout Z87.39 Active 834648761 Problem Hammertoe of left foot M20.42 Active 750793223 Problem Exophthalmia H05.20 Active 32099817 Problem Systemic lupus erythematosus, unspecified SLE type, unspecified organ involvement status M32.9 Active 31277015 Problem Hammertoe of right foot M20.41 Active 253765197 Problem Gastroesophageal reflux disease without esophagitis K21.9 Active 867564072 Problem Essential hypertension I10 Active 52124789 Problem Generalized anxiety disorder F41.1 Active 53835698 Problem Arthritis M19.90 Active 4213232 Problem Mixed hyperlipidemia E78.2 Active 416167583 Problem Gingivitis K05.10 Active 51444304 Problem Dysthymic disorder F34.1 Active 77736358 Problem Acute left-sided low back pain with left-sided sciatica M54.42 Active 041103780 ALLERGIES Substance Reaction Event Type Date Status Penicillin V Potassium Unknown Drug Allergy Sep, Active ENCOUNTERS Encounter Location Date Diagnosis [facility] [address] [facility] [id number] [address] Mar, [facility] [address] [id number] [address] Jan, [facility] [address] [id number] [address] Dec, Severe episode of recurrent major depressive disorder, with psychotic features F33.3 and BMI 45.0-49.9, adult Z68.42 [place] [id number] [place] [address] Dec, Onychomycosis B35.1 ; Hammertoe of left foot M20.42 ; Hammertoe of right foot M20.41 and Type 2 diabetes mellitus without complication , without long-term current use of insulin E11.9 [place] [id number] [place] [address] 57975- 35[address] 13 Nov, 2017 Severe episode of recurrent major depressive disorder, with psychotic features F33.3 and BMI 45.0-49.9, adult Z68.42 [place] [id number] [place] [address]281- 9242 Nov, Medicare annual wellness visit, initial Z00.00 ; Type 2 diabetes mellitus without complication, without long-term current use of insulin E11.9 ; Generalized anxiety disorder F41.1 ; Essential hypertension I10 ; Mixed hyperlipidemia E78.2 ; Arthritis M19.90 ; Dysthymic disorder F34.1 ; Systemic lupus erythematosus, unspecified SLE type, unspecified organ involvement status M32.9 ; History of gout Z87.39 and Encounter for immunization Z23 [place] [id number] [place] [address]78- 2750 October, [place] [id number] [place] [address]221[address] 8960 October, [facility] [id number] [place] [id number] Sep, Dental examination Z01.20 [place] [id number] [place] [address] 61723- 7565 Sep, [place] [id number] [place] [address] 02688- 2771 Aug, Dental examination Z01.20 [place] [id number] [place] [address] 83585- 7815 28 Aug, 2017 [facility] [id number] [place] [address] 24054- 7224 Aug, [facility] [address] [address] 14 Aug, 2017 Aphthous stomatitis K12.0 and BMI 45.0-49.9, adult Z68.42 [place] [address] [address]- [address] 05 Aug, 2017 [place] [address] [address] Aug, Vertigo R42 ; Impacted cerumen of both ears H61.23 ; Abnormal RBC indices R71.8 ; Exophthalmia H05.20 ; Elevated glucose R73.09 ; Type 2 diabetes mellitus without complication, without long-term current use of insulin E11.9 and BMI 45.0-49.9, adult Z68.42 [facility] [id number] [place] [address] 56420- 4034 Jul, Dizziness R42 and BMI 45.0-49.9, adult Z68.42 [facility] [id number] [place] [address]23 [address]2691 Jun, Vertigo R42 and BMI 45.0-49.9, adult Z68.42 [facility] [id number] [place] [address] [phone] May, Dental caries K02.9 [facility] [id number] [place] [id number] May, Encounter for dental exam and cleaning w/o abnormal findings Z01.20 [place] [address] 7[address]06- 7[address] 07 Apr, 2017 Acute non-recurrent maxillary sinusitis J01.00 [place] [address] 83670- [address]59 09 Mar, 2017 [facility] [address] [address] 11 Feb, 2017 Acute gout of right ankle, 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 [facility] [id number] [place] [address] 14197- 6416 Feb, [facility] [id number] [place] [address] [id number] Jan, Dental examination Z01.20 [facility] [address] [id number] Jan, Encounter for dental examination and cleaning without abnormal findings Z01.20 [facility] [id number] [place] [address] [id number] Jan, Dental examination Z01.20 [facility] [id number] [place] [address] 17019- 1556 Jan, Acute non-recurrent frontal sinusitis J01.10 ; Essential hypertension I10 ; Mixed hyperlipidemia E78.2 ; Sore throat J02.9 and Gastroesophageal reflux disease without esophagitis K21.9 [facility] [place] [id number] [place] [address] [id number] Dec, [facility] [id number] [place] [address] 60924 -9722 Dec, Other secondary acute gout of multiple sites M10.49 and Acute upper respiratory infection, unspecified J06.9 [facility] [id number] [place] [address] [id number] -8758 Nov, Sore throat J02.9 ; Acute nasopharyngitis (common cold) J00 and Acute left-sided low back pain with left-sided sciatica M54.42 [facility] [id number] [place] [address] [id number] October, Encounter for dental examination and cleaning without abnormal findings Z01.20 [facility] [address] [place] [address] 33360 -6896 02 May, 2017 Acute upper respiratory infection, unspecified J06.9 and Sore throat J02.9 [facility] [address] [place] [address] [id number] Sep, Encounter for dental examination and cleaning without abnormal findings Z01.20 [facility] [id number] [place] [address] 23081- 1791 Sep, Gastroesophageal reflux disease without esophagitis K21.9 [facility] [address] [address] Aug, Sore throat J02.9 and Acute idiopathic gout of right wrist M10.031 [facility] [address] [id number] Jul, Encounter for dental examination and cleaning without abnormal findings Z01.20 [facility] [id number] [place] [address] 70878- 8390 Jun, [facility] [address] 15310- 0455 Jun, Lower abdominal pain R10.30 [facility] [id number] [place] [address] [id number] Jun, Encounter for dental examination and cleaning without abnormal findings Z01.20 [facility] [id number] [place] [address] 82337- 9865 May, Chronic kidney disease, unspecified stage N18.9 and Mouth ulcer K12.1 [facility] [id number] [place] [address] 09717- 3894 May, Chronic kidney disease, unspecified stage N18.9 [facility] [id number] [place] [address] 53704- 3482 May, Encounter for dental examination and cleaning without abnormal findings Z01.20 [facility] [id number] [place] [address] 51175- 1344 May, Encounter for dental examination and cleaning without abnormal findings Z01.20 [facility] [address] [address]- [address] 16 May, 2016 Hypokalemia E87.6 ; Essential hypertension I10 ; Gastroesophageal reflux disease without esophagitis K21.9 and Right-sided thoracic back pain, unspecified chronicity M54.6 [facility] [place] [address] 6[address] 13 May, 2016 Oral candidiasis B37.[address] [address]- [address] May, [address] 11717- [address]84 May, Cracked tooth K03.81 and Retained dental root K08.[address] 16026- 2954 May, Dental examination Z01.20 [facility] [address] [address] 28 Apr, 2016 Acute right flank pain R10.9 and Acute left lower quadrant pain R10.[address] 32373- 5858 08 Apr, [address] 99998- 1172 13 Mar, 2016 Dental examination Z01.[address] 58568- 5502 07 Mar, 2016 Dysthymic disorder F34.1 [facility] [address] 269[address] 05 Mar, 2016 Gingivitis K05.10 and Torticollis M43.6 [place] [address] 00197- 4330 08 Feb, 2016 Dysthymic disorder F34.1 [facility] [address] 34[address] -8761 Feb, Lymph nodes enlarged R59.9 [facility] [id number] [place] [address] 21098 -5144 Jan, Left otitis media, unspecified chronicity, unspecified otitis media type H66.92 [place] [id number] [place] [address] 92654- 4399 08 Jan, 2016 Dysthymic disorder F34.1 and Generalized anxiety disorder F41.1 [place] [address] 08832- 8758 Dec, Dental examination Z01.20 [place] [address] 47325- 9681 Dec, Dysthymic disorder F34.1 and Generalized anxiety disorder F41.1 [place] [address] 24675- 0589 Dec, Gastroesophageal reflux disease without esophagitis K21.9 and Arthritis M19.90 [place] [address] 18467- 2288 Dec, Dysthymic disorder F34.1 and Generalized anxiety disorder F41.1 [facility] [id number] [place] [address] 60375 -9696 Dec, Gingivitis K05.10 [place] [id number] [place] [address] 45866- 1317 Dec, Essential hypertension I10 ; Epigastric pain R10.13 ; Mixed hyperlipidemia E78.2 ; Proptosis H05.20 and Gastroesophageal reflux disease without esophagitis K21.9 [place] [id number] [place] [address] 49180- 5084 Dec, [place] [address] 39461- 6416 Nov, Dysthymic disorder F34.1 [facility] [address] [address]31 [address]28[address] Nov, Epigastric pain R10.13 and Gastroesophageal reflux disease , esophagitis presence not specified K21.9 [place] [id number] [place] [address] 24 Nov, 2015 Depression, unspecified depression type F32.9 [place] [address] 04334- 2580 24 Nov, 2015 Essential hypertension I10 ; Mixed hyperlipidemia E78.2 ; Proptosis H05.20 ; Gastroesophageal reflux disease without esophagitis K21.9 and Depression, unspecified depression type F32.9 [place] [address] 747620- 4476 22 Nov, 2015 [facility] [place] [address] 28656 -1555 21 Nov, 2015 Sore in mouth K13.79 [facility] IN [address] [address]107 14 Nov, 2015 Left-sided chest wall pain R07.89 and Pain of right calf M79.661 [place] [address] 23016- 1007 06 Nov, 2015 Gastroesophageal reflux disease, esophagitis presence not specified K21.9 and Environmental allergies Z91.09 [facility] [address] [id number] October, Dental examination Z01.20 IMMUNIZATIONS No Known Immunizations SOCIAL HISTORY Never Assessed REASON FOR VISIT [employer] AND [employer] PLAN OF CARE Activity Details Follow Up 3 Months Reason:ADINA WILL CONTACT HIM FOR HIS APPOINTMENT VITAL SIGNS Height 70 in 2017-10-13 Blood pressure systolic 142 mmHg 2017-10-13 Blood pressure diastolic 74 mmHg 2017-10-13 MEDICATIONS Medication Instructions Dosage Frequency Start Date End Date Duration Status Blood Glucose Monitor System w/Device DX- E11.9 2 times a day test blood sugar 12h 28 Aug, 2017 Active Metformin HCl 500 mg Orally Twice a day 1 tablet with meals 12h Aug, 30 day(s) Active Uloric 80 MG Orally Once a day 1 tablet 24h Active Protonix 40 mg Orally Once a day 1 tablet 24h 30 Active Blood Glucose Test Strip DX- E11.9 and lancets Fasting and 2 hours after 1 meal 3 times weekly. test blood sugar Aug, Active Eye Health Formula 180-15-5 MG Active Pravastatin Sodium 10 mg Orally Once a day 1 tablet 24h 30 days Active Aripiprazole 5 MG Orally Once a day 1 tablet 24h Active Lisinopril 10 mg Orally Once a day 1 tablet 24h 30 days Active Mens Multi Vitamin & Mineral Active RESULTS No Results PROCEDURES Procedure Date Ordered Result Body Site PERIODIC ORAL EXAMINATION October 13, 2017 INTRAORL-PERIAPICAL 1 FILM 33618 October 13, 2017 Periodontal maint procedures October 13, 2017 INSTRUCTIONS MEDICATIONS ADMINISTERED No Known Medications [...]
--- OUTSIDE RECORDS SUMMARY | 2018-06-01 09:57 | XMS REPORT ---
Author Author EDGARDO BATES [facility] Address [address] [place] [address] Care Team Providers Care Technical Supervisor Name Role Phone EDGARDO BATES Unavailable PROBLEMS Type Condition ICD9-CM Code ZPX64-VL Code Onset Dates Condition Status SNOMED Code Problem Acute gout of right ankle, 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 Active 138920885 Problem Vertigo R42 Active 414992030 Problem Type 2 diabetes mellitus without complication, without long-term current use of insulin E11.9 Active 827772260 Problem Severe episode of recurrent major depressive disorder, with psychotic features F33.3 Active 62951429 Problem History of gout Z87.39 Active 527789318 Problem Hammertoe of left foot M20.42 Active 919037534 Problem Exophthalmia H05.20 Active 47971313 Problem Systemic lupus erythematosus, unspecified SLE type, unspecified organ involvement status M32.9 Active 19042165 Problem Hammertoe of right foot M20.41 Active 592978563 Problem Gastroesophageal reflux disease without esophagitis K21.9 Active 836508101 Problem Essential hypertension I10 Active 16871020 Problem Generalized anxiety disorder F41.1 Active 30115260 Problem Arthritis M19.90 Active 9167479 Problem Mixed hyperlipidemia E78.2 Active 429030871 Problem Gingivitis K05.10 Active 00504175 Problem Dysthymic disorder F34.1 Active 00335092 Problem Acute left-sided low back pain with left-sided sciatica M54.42 Active [id number] ALLERGIES No Information ENCOUNTERS Encounter Location Date Diagnosis [facility] [id number] [address] 05 Mar, 2018 [facility] [id number] [address] Feb, [facility] [id number] [address] Jan, Severe episode of recurrent major depressive disorder, with psychotic features F33.3 and BMI 45.0-49.9, adult Z68.[address] [place] [address] Dec, Severe episode of recurrent major depressive disorder, with psychotic features F33.3 and BMI 45.0-49.9, adult Z68.42 [place] [id number] [place] [address] Dec, Onychomycosis B35.1 ; Hammertoe of left foot M20.42 ; Hammertoe of right foot M20.41 and Type 2 diabetes mellitus without complication , without long-term current use of insulin E11.9 [place] [id number] [place] [address] Nov, Severe episode of recurrent major depressive disorder, with psychotic features F33.3 and BMI 45.0-49.9, adult Z68.42 [address] [place] [address] 08 Nov, 2017 Medicare annual wellness visit, [...] gout Z87.39 and Encounter for immunization Z23 [address] [place] [address] October, [address] [address] October, [facility] [address] [place] [id number] Sep, Dental examination Z01.20 [place] [id number] [place] [address]56[address] Sep, [facility] [id number] [place] [address] 9[address]- 2972 Aug, Dental examination Z01.20 [place] [id number] [place] [address]43- 9[address] 28 Aug, 2017 [place] [id number] [place] [address] 9[address]81- 2099 Aug, [facility] [address] [address] 14 Aug, 2017 Aphthous stomatitis K12.0 and BMI 45.0-49.9, adult Z68.42 [place] [address] [address] 05 Aug, 2017 [place] [address] [address] Aug, Vertigo R42 ; Impacted cerumen of both ears H61.23 ; Abnormal RBC indices R71.8 ; Exophthalmia H05.20 ; Elevated glucose R73.09 ; Type 2 diabetes mellitus without complication, without long-term current use of insulin E11.9 and BMI 45.0-49.9, adult Z68.42 [place] [id number] [place] [address] 6[address]40- [address] 19 Jul, 2017 Dizziness R42 and BMI 45.0-49.9, adult Z68.42 [facility] [id number] [place] [address] Jun, Vertigo R42 and BMI 45.0-49.9, adult Z68.42 [facility] [id number] [place] [id number] May, Dental caries K02.9 [facility] [address] [id number] May, Encounter for dental exam and cleaning w/o abnormal findings Z01.20 [place] [address] [place] [address] 07 Apr, 2017 Acute non-recurrent maxillary sinusitis J01.00 [facility] [address] [address] 09 Mar, 2017 [facility] [id number] [place] [address]28- 5[address] 11 Feb, 2017 Acute gout of right ankle, 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 [facility] [address] [address] Feb, [facility] [address] [id number] Jan, Dental examination Z01.20 [facility] [address] [id number] Jan, Encounter for dental examination and cleaning without abnormal findings Z01.20 [facility] [address] [id number] Jan, Dental examination Z01.20 [facility] [id number] [place] [address] 27982- 8955 Jan, Acute non-recurrent frontal sinusitis J01.10 ; Essential hypertension I10 ; Mixed hyperlipidemia E78.2 ; Sore throat J02.9 and Gastroesophageal reflux disease without esophagitis K21.9 [facility] [id number] [place] [address] [id number] Dec, [facility] [id number] [place] [address] 8[address]33 [address] Dec, Other secondary acute gout of multiple sites M10.49 and Acute upper respiratory infection, unspecified J06.9 [facility] [id number] [place] [address] 36[address]58 Nov, Sore throat J02.9 ; Acute nasopharyngitis (common cold) J00 and Acute left-sided low back pain with left-sided sciatica M54.42 [facility] [id number] [place] [address] [id number] October, Encounter for dental examination and cleaning without abnormal findings Z01.20 [facility] [id number] [place] [address] October, Acute upper respiratory infection, unspecified J06.9 and Sore throat J02.9 [facility] [id number] [place] [id number] Sep, Encounter for dental examination and cleaning without abnormal findings Z01.20 [facility] [id number] [place] [address] 98561- 6196 Sep, Gastroesophageal reflux disease without esophagitis K21.9 [facility] [id number] [place] [address]33 [address] Aug, Sore throat J02.9 and Acute idiopathic gout of right wrist M10.031 [facility] [id number] [place] [address] [id number] Jul, Encounter for dental examination and cleaning without abnormal findings Z01.20 [facility] [id number] [place] [address] 48374- 6344 Jun, [facility] [id number] [place] [address] 26354- 0293 Jun, Lower abdominal pain R10.30 [facility] [id number] [place] [address] [id number] Jun, Encounter for dental examination and cleaning without abnormal findings Z01.20 [facility] [id number] [place] [address] 67409- 8727 May, Chronic kidney disease, unspecified stage N18.9 and Mouth ulcer K12.1 [facility] [id number] [place] [address]- 2001 May, Chronic kidney disease, unspecified stage N18.9 [facility] [id number] [place] [address] 07084- 3069 May, Encounter for dental examination and cleaning without abnormal findings Z01.20 [facility] [id number] [place] [address]20- 4301 20 May, 2016 Encounter for dental examination and cleaning without abnormal findings Z01.20 [facility] [id number] [place] [address] 21093- 6305 16 May, 2016 Hypokalemia E87.6 ; Essential hypertension I10 ; Gastroesophageal reflux disease without esophagitis K21.9 and Right-sided thoracic back pain, unspecified chronicity M54.6 [facility] [address] [address] May, Oral candidiasis B37.0 [place] [address] [address]- [address] 02 May, 2016 [place] [address] [address]- 98[address] May, Cracked tooth K03.81 and Retained dental root K08.3 [place] [address] [address]- [address]36 May, Dental examination Z01.20 [facility] WALK [place] [address] [address]109 28 Apr, 2016 Acute right flank pain R10.9 and Acute left lower quadrant pain R10.32 [place] [address] 09394- 2770 08 Apr, 2016 Bronchitis J40 [place] [id number] [place] [address] 72021- 4768 13 Mar, 2016 Dental examination Z01.20 [place] [address] 32077- 3773 07 Mar, 2016 Dysthymic disorder F34.1 [facility] [place] [address] 34[address] 05 Mar, 2016 Gingivitis K05.10 and Torticollis M43.6 [place] [id number] [place] [address] 20143- 7380 08 Feb, 2016 Dysthymic disorder F34.1 [facility] [id number] [place] [address] 96111 -[address]446 07 Feb, 2016 Lymph nodes enlarged R59.9 [facility] [id number] [place] [address] 08898 -[address]322 Jan, Left otitis media, unspecified chronicity, unspecified otitis media type H66.92 [place] [id number] [place] [address] 88688- 8221 08 Jan, 2016 Dysthymic disorder F34.1 and Generalized anxiety disorder F41.1 [place] [id number] [place] [address] 60510- 9997 Dec, Dental examination Z01.20 [place] [address] 23068- 39[address] Dec, Dysthymic disorder F34.1 and Generalized anxiety disorder F41.1 [place] [id number] [place] [address] 32663- 3320 Dec, Gastroesophageal reflux disease without esophagitis K21.9 and Arthritis M19.90 [place] [id number] [place] [address] 43926- 8716 Dec, Dysthymic disorder F34.1 and Generalized anxiety disorder F41.1 [facility] [id number] [place] [address] 14342 -3782 Dec, Gingivitis K05.10 [place] [id number] [place] [address] 82911- 8143 Dec, Essential hypertension I10 ; Epigastric pain R10.13 ; Mixed hyperlipidemia E78.2 ; Proptosis H05.20 and Gastroesophageal reflux disease without esophagitis K21.9 [place] [id number] [place] [address] 39008- 8567 05 Dec, 2015 [place] [id number] [place] [address] 79903- 6783 30 Nov, 2015 Dysthymic disorder F34.1 [facility] WALK IN [address] [address] Nov, Epigastric pain R10.13 and Gastroesophageal reflux disease , esophagitis presence not specified K21.[address] [address]- [address] Nov, Depression, unspecified depression type F32.[address] [address]807- [address] 24 Nov, 2015 Essential hypertension I10 ; Mixed hyperlipidemia E78.2 ; Proptosis H05.20 ; Gastroesophageal reflux disease without esophagitis K21.9 and Depression, unspecified depression type F32.[address] [address]- [address]758 Nov, [facility] WALK IN [address] [address] Nov, Sore in mouth K13.79 [facility] IN [address] [address] 14 Nov, 2015 Left-sided chest wall pain R07.89 and Pain of right calf M79.661 [place] [id number] [place] [address] 65606- 5507 06 Nov, 2015 Gastroesophageal reflux disease, esophagitis presence not specified K21.9 and Environmental allergies Z91.09 [facility] [address] [id number] October, Dental examination Z01.20 IMMUNIZATIONS No Known Immunizations SOCIAL HISTORY Never Assessed REASON FOR VISIT 1 mo f/u DM Ed PLAN OF CARE VITAL [...]
--- OUTSIDE RECORDS SUMMARY | 2018-06-01 09:57 | XMS REPORT ---
Author Author EDGARDO BATES [facility] Address [address] [place] [address] Care Team Providers Care Route Specialist Name Role Phone EDGARDO BATES Unavailable PROBLEMS Type Condition ICD9-CM Code EEG38-HK Code Onset Dates Condition Status SNOMED Code Problem Acute gout of right ankle, 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 Active 919553310 Problem Vertigo R42 Active 857436585 Problem Type 2 diabetes mellitus without complication, without long-term current use of insulin E11.9 Active 810880904 Problem Severe episode of recurrent major depressive disorder, with psychotic features F33.3 Active 87100033 Problem History of gout Z87.39 Active 230621075 Problem Hammertoe of left foot M20.42 Active 852487329 Problem Exophthalmia H05.20 Active 91634733 Problem Systemic lupus erythematosus, unspecified SLE type, unspecified organ involvement status M32.9 Active 56817169 Problem Hammertoe of right foot M20.41 Active 171325353 Problem Gastroesophageal reflux disease without esophagitis K21.9 Active 289861957 Problem Essential hypertension I10 Active 74133461 Problem Generalized anxiety disorder F41.1 Active 26611831 Problem Arthritis M19.90 Active 4240585 Problem Mixed hyperlipidemia E78.2 Active 196086844 Problem Gingivitis K05.10 Active 96140885 Problem Dysthymic disorder F34.1 Active 61927714 Problem Acute left-sided low back pain with left-sided sciatica M54.42 Active 667030611 ALLERGIES Substance Reaction Event Type Date Status Penicillin V Potassium Unknown Drug Allergy Nov, Active ENCOUNTERS Encounter Location Date Diagnosis [facility] [id number] [address] Mar, [facility] [id number] [address] Feb, [facility] [id number] [place] [address] Feb, [address] [address] Jan, Severe episode of recurrent major depressive disorder, with psychotic features F33.3 and BMI 45.0-49.9, adult Z68.[address] [address] Dec, Severe episode of recurrent major depressive disorder, with psychotic features F33.3 and BMI 45.0-49.9, adult Z68.[address] [address] Dec, Onychomycosis B35.1 ; Hammertoe of left foot M20.42 ; Hammertoe of right foot M20.41 and Type 2 diabetes mellitus without complication , without long-term current use of insulin E11.[address] [address] Nov, Severe episode of recurrent major depressive disorder, with psychotic features F33.3 and BMI 45.0-49.9, adult Z68.42 [id number] [place] [address]0 Nov, Medicare annual wellness visit, initial Z00.00 ; Type 2 diabetes mellitus without complication, without long-term current use of insulin E11.9 ; Generalized anxiety disorder F41.1 ; Essential hypertension I10 ; Mixed hyperlipidemia E78.2 ; Arthritis M19.90 ; Dysthymic disorder F34.1 ; Systemic lupus erythematosus, unspecified SLE type, unspecified organ involvement status M32.9 ; History of gout Z87.39 and Encounter for immunization Z23 [id number] [place] [address] October, [id number] [place] [address]140[address]262 October, [facility] [id number] [place] [id number] Sep, Dental examination Z01.20 [address] [place] [id number] [place] [address] 26073- 1514 Sep, [address] [id number] [place] [address] [id number]- 1835 Aug, Dental examination Z01.20 [place] [id number] [place] [address] 66640- 5736 Aug, [address] [id number] [place] [address] 09726- 2040 Aug, [facility] [place] [address] [address] Aug, Aphthous stomatitis K12.0 and BMI 45.0-49.9, adult Z68.42 [place] [id number] [place] [address] 53690- 8339 Aug, [place] [id number] [place] [address] 18796- 7614 Aug, Vertigo R42 ; Impacted cerumen of both ears H61.23 ; Abnormal RBC indices R71.8 ; Exophthalmia H05.20 ; Elevated glucose R73.09 ; Type 2 diabetes mellitus without complication, without long-term current use of insulin E11.9 and BMI 45.0-49.9, adult Z68.42 [place] [id number] [place] [address]226- 5241 Jul, Dizziness R42 and BMI 45.0-49.9, adult Z68.42 [facility] [id number] [place] [address]15 -[address] Jun, Vertigo R42 and BMI 45.0-49.9, adult Z68.42 [facility] [id number] [place] [address] [id number] May, Dental caries K02.9 [facility] [address] [id number] May, Encounter for dental exam and cleaning w/o abnormal findings Z01.20 [facility] [address] [address] 07 Apr, 2017 Acute non-recurrent maxillary sinusitis J01.00 [facility] [address] [address]- [address] 09 Mar, 2017 [facility] [address] 215607- 7169 11 Feb, 2017 Acute gout of right ankle, 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 [facility] [address] 416978- 40[address] Feb, [facility] [address] [id number] Jan, Dental examination Z01.20 [facility] [address] [id number] Jan, Encounter for dental examination and cleaning without abnormal findings Z01.20 [facility] [id number] [place] [id number] Jan, Dental examination Z01.20 [facility] [id number] [place] [address] [id number]- 4076 Jan, Acute non-recurrent frontal sinusitis J01.10 ; Essential hypertension I10 ; Mixed hyperlipidemia E78.2 ; Sore throat J02.9 and Gastroesophageal reflux disease without esophagitis K21.9 [facility] [id number] [place] [id number] Dec, [facility] [id number] [place] [address]80 [address] Dec, Other secondary acute gout of multiple sites M10.49 and Acute upper respiratory infection, unspecified J06.9 [facility] [id number] [place] [address]31 [address]58[address] Nov, Sore throat J02.9 ; Acute nasopharyngitis (common cold) J00 and Acute left-sided low back pain with left-sided sciatica M54.42 [facility] [address] [id number] October, Encounter for dental examination and cleaning without abnormal findings Z01.20 [facility] [address] [address] October, Acute upper respiratory infection, unspecified J06.9 and Sore throat J02.9 [facility] [address] [id number] Sep, Encounter for dental examination and cleaning without abnormal findings Z01.20 [facility] [address] [address]- [address] Sep, Gastroesophageal reflux disease without esophagitis K21.9 [facility] [address] [address] Aug, Sore throat J02.9 and Acute idiopathic gout of right wrist M10.031 [facility] [address] [id number] Jul, Encounter for dental examination and cleaning without abnormal findings Z01.20 [facility] [address] [address] Jun, [facility] [address] [address] Jun, Lower abdominal pain R10.30 [facility] [address] [id number] Jun, Encounter for dental examination and cleaning without abnormal findings Z01.20 [facility] [address] [address] May, Chronic kidney disease, unspecified stage N18.9 and Mouth ulcer K12.1 [facility] [address] [address]- [address] May, Chronic kidney disease, unspecified stage N18.9 [place] [address] [address] 22 May, 2016 Encounter for dental examination and cleaning without abnormal findings Z01.20 [place] [address] 269[address] 20 May, 2016 Encounter for dental examination and cleaning without abnormal findings Z01.20 [place] [address] [address] 16 May, 2016 Hypokalemia E87.6 ; Essential hypertension I10 ; Gastroesophageal reflux disease without esophagitis K21.9 and Right-sided thoracic back pain, unspecified chronicity M54.6 [facility] [place] [address] [address] 13 May, 2016 Oral candidiasis B37.[address] [address] May, [place] [address] [address] May, Cracked tooth K03.81 and Retained dental root K08.3 [place] [address] 42[address] May, Dental examination Z01.20 [facility] [place] [address] [address] 28 Apr, 2016 Acute right flank pain R10.9 and Acute left lower quadrant pain R10.32 [place] [address] [address]- [address] 08 Apr, 2016 Bronchitis J40 [place] [address] 7[address]- 9[address] 13 Mar, 2016 Dental examination Z01.20 [place] [address] [address] 07 Mar, 2016 Dysthymic disorder F34.1 [facility] [place] [id number] [place] [address] 34784 [address]2890 05 Mar, 2016 Gingivitis K05.10 and Torticollis M43.6 [place] [id number] [place] [address] 44506- 2628 08 Feb, 2016 Dysthymic disorder F34.1 [facility] [address] [id number] [place] [address] 00168 -5172 07 Feb, 2016 Lymph nodes enlarged R59.9 [facility] [address] [place] [id number] [place] [address] 79485 -5673 Jan, Left otitis media, unspecified chronicity, unspecified otitis media type H66.92 [place] [id number] [place] [address] 63852- 6424 08 Jan, 2016 Dysthymic disorder F34.1 and Generalized anxiety disorder F41.1 [place] [address] 52854- 1727 Dec, Dental examination Z01.20 [place] [id number] [place] [address] 63421- 8811 Dec, Dysthymic disorder F34.1 and Generalized anxiety disorder F41.1 [place] [id number] [place] [address] 84070- 1518 Dec, Gastroesophageal reflux disease without esophagitis K21.9 and Arthritis M19.90 [place] [id number] [place] [address] 78059- 8049 Dec, Dysthymic disorder F34.1 and Generalized anxiety disorder F41.1 [facility] [address] [place] [id number] [place] [address] 78[address] -2016 Dec, Gingivitis K05.10 [place] [id number] [place] [address] 40976- 5598 Dec, Essential hypertension I10 ; Epigastric pain R10.13 ; Mixed hyperlipidemia E78.2 ; Proptosis H05.20 and Gastroesophageal reflux disease without esophagitis K21.9 [facility] [id number] [place] [address] 85861- 0469 05 Dec, 2015 [place] [address] [address] 868630- [address]67 30 Nov, 2015 Dysthymic disorder F34.1 [facility] [place] [address] 956[address]10[address] Nov, Epigastric pain R10.13 and Gastroesophageal reflux disease , esophagitis presence not specified K21.9 [place] [id number] [place] [address] 81663- 8283 Nov, Depression, unspecified depression type F32.9 [place] [address] 84690- 6724 24 Nov, 2015 Essential hypertension I10 ; Mixed hyperlipidemia E78.2 ; Proptosis H05.20 ; Gastroesophageal reflux disease without esophagitis K21.9 and Depression, unspecified depression type F32.9 [place] [id number] [place] [address] 58648- 4448 Nov, [facility] [place] [address] 55[address] 21 Nov, 2015 Sore in mouth K13.79 [facility] [place] [address] 78486 -[address]286 14 Nov, 2015 Left-sided chest wall pain R07.89 and Pain of right calf M79.661 [place] [id number] [place] [address] 37630- 0970 06 Nov, 2015 Gastroesophageal reflux disease, esophagitis presence not specified K21.9 and Environmental allergies Z91.09 [facility] [id number] [place] [address] [phone] October, Dental examination Z01.20 IMMUNIZATIONS Vaccine Route Administration Date Status TDAP (BOOSTRIX) IM Intramuscular November 28, 2017 Administered SOCIAL HISTORY Never Assessed REASON FOR VISIT Medicare AWV - Initial Visit WB-MA PLAN OF CARE Activity Details Follow Up 1 Year Reason: VITAL SIGNS Height 70 in 2017-11-28 Weight 322 lbs 2017-11-28 Temperature 98.1 degrees Fahrenheit 2017-11-28 Heart Rate 100 bpm 2017-11-28 Respiratory Rate 20 2017-11-28 BMI 46.20 kg/m2 2017-11-28 Blood pressure systolic 130 mmHg 2017-11-28 Blood pressure diastolic 86 mmHg 2017-11-28 MEDICATIONS Medication Instructions Dosage Frequency Start Date End Date Duration Status Pravastatin Sodium 10 mg Orally Once a day 1 tablet 24h 30 days Active Protonix 40 mg Orally Once a day 1 tablet 24h 30 Active Mens Multi Vitamin & Mineral Active Blood Glucose Monitor System w/Device DX- E11.9 2 times a day test blood sugar 12h Aug, Active Aripiprazole 5 MG Orally Once a day 1 tablet 24h Active Lisinopril 10 mg Orally Once a day 1 tablet 24h 30 days Active Uloric 80 MG Orally Once a day 1 tablet 24h Active Metformin HCl 500 mg Orally Twice a day 1 tablet with meals 12h Aug, 30 day(s) Active Eye Health Formula 180-15-5 MG Active SudoGest 60 mg Orally every 6 hrs 1 tablet as needed 6h October, 07 days Active Blood Glucose Test Strip DX- E11.9 and lancets Fasting and 2 hours after 1 meal 3 times weekly. test blood sugar Aug, Active RESULTS No Results PROCEDURES Procedure Date Ordered Result Body Site [facility] VISIT IPPE/AWV November 28, 2017 ANNUAL CHRISTIANO VST; PERSNL PPS INIT November 28, 2017 SINGLE IMMUNIZATION ADMIN November 28, 2017 PT TOBACCO SCREEN RCVD TLK November 28, 2017 FALL RISK ASSESSMENT DOCD November 28, 2017 TDAP (BOOSTRIX) November 28, 2017 CLIN DEPRESSION SCREEN DOC November 28, 2017 INSTRUCTIONS MEDICATIONS ADMINISTERED No Known Medications [...]
--- OUTSIDE RECORDS SUMMARY | 2018-06-01 09:58 | XMS REPORT ---
Author Author EDGARDO BATES [facility] Address [address] [place] [address] Care Team Providers Care Flask Cleaner Name Role Phone EDGARDO BATES Unavailable PROBLEMS Type Condition ICD9-CM Code HBQ22-PF Code Onset Dates Condition Status SNOMED Code Problem Acute gout of right ankle, 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 Active 744207131 Problem Vertigo R42 Active 481344187 Problem Type 2 diabetes mellitus without complication, without long-term current use of insulin E11.9 Active 377805175 Problem Severe episode of recurrent major depressive disorder, with psychotic features F33.3 Active 92213711 Problem History of gout Z87.39 Active 241818066 Problem Hammertoe of left foot M20.42 Active 925584447 Problem Exophthalmia H05.20 Active 07035387 Problem Systemic lupus erythematosus, unspecified SLE type, unspecified organ involvement status M32.9 Active 49278204 Problem Hammertoe of right foot M20.41 Active 863312763 Problem Gastroesophageal reflux disease without esophagitis K21.9 Active 585240560 Problem Essential hypertension I10 Active 19501085 Problem Generalized anxiety disorder F41.1 Active 98747792 Problem Arthritis M19.90 Active 3337311 Problem Mixed hyperlipidemia E78.2 Active 818794278 Problem Gingivitis K05.10 Active 68007378 Problem Dysthymic disorder F34.1 Active 23060517 Problem Acute left-sided low back pain with left-sided sciatica M54.42 Active 811216206 ALLERGIES No Information ENCOUNTERS Encounter Location Date Diagnosis [facility] [address] [facility] [id number] [address] Mar, [facility] [address] [id number] [address] Jan, [facility] [address] [id number] [address] Dec, Severe episode of recurrent major depressive disorder, with psychotic features F33.3 and BMI 45.0-49.9, adult Z68.42 [place] [id number] [place] [address]75[address] 7017 Dec, Onychomycosis B35.1 ; Hammertoe of left foot M20.42 ; Hammertoe of right foot M20.41 and Type 2 diabetes mellitus without complication , without long-term current use of insulin E11.9 [place] [id number] [place] [address] 68478- 7633 Nov, Severe episode of recurrent major depressive disorder, with psychotic features F33.3 and BMI 45.0-49.9, adult Z68.42 [place] [id number] [place] [address] 79453- 7497 Nov, Medicare annual wellness visit, initial Z00.00 ; Type 2 diabetes mellitus without complication, without long-term current use of insulin E11.9 ; Generalized anxiety disorder F41.1 ; Essential hypertension I10 ; Mixed hyperlipidemia E78.2 ; Arthritis M19.90 ; Dysthymic disorder F34.1 ; Systemic lupus erythematosus, unspecified SLE type, unspecified organ involvement status M32.9 ; History of gout Z87.39 and Encounter for immunization Z23 [place] [id number] [place] [address] 90306- 0120 October, [place] [id number] [place] [address] 26294- 0669 October, [facility] [id number] [place] [address] [id number] Sep, Dental examination Z01.20 [place] [id number] [place] [address] 15057- 9570 Sep, [place] [id number] [place] [address] 72095- 8184 Aug, Dental examination Z01.20 [place] [id number] [place] [address] 38560- 4807 Aug, [facility] [id number] [place] [address] 33276- 9373 Aug, [facility] [id number] [place] [address] 66329 -8296 14 Aug, 2017 Aphthous stomatitis K12.0 and BMI 45.0-49.9, adult Z68.42 [place] [address] 74358- 2216 05 Aug, 2017 [place] [id number] [place] [address] 61467- 7994 05 Aug, 2017 Vertigo R42 ; Impacted cerumen of both ears H61.23 ; Abnormal RBC indices R71.8 ; Exophthalmia H05.20 ; Elevated glucose R73.09 ; Type 2 diabetes mellitus without complication, without long-term current use of insulin E11.9 and BMI 45.0-49.9, adult Z68.42 [facility] [id number] [place] [address] 05302- 0851 Jul, Dizziness R42 and BMI 45.0-49.9, adult Z68.42 [facility] [id number] [place] [address] 50486 -[phone] Jun, Vertigo R42 and BMI 45.0-49.9, adult Z68.42 [facility] [id number] [place] [address] [phone] May, Dental caries K02.9 [facility] [id number] [place] [address] [phone] May, Encounter for dental exam and cleaning w/o abnormal findings Z01.20 [place] [address] 24244- 3978 07 Apr, 2017 Acute non-recurrent maxillary sinusitis J01.00 [place] [id number] [place] [address] 74688- 7547 09 Mar, 2017 [place] [id number] [address] 11 Feb, 2017 Acute gout of right ankle, 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 [facility] [id number] [place] [address] 91865- 9996 Feb, [facility] [id number] [place] [address] [id number] Jan, Dental examination Z01.20 [facility] [address] [id number] Jan, Encounter for dental examination and cleaning without abnormal findings Z01.20 [facility] [id number] [place] [address] [phone] Jan, Dental examination Z01.20 [facility] [id number] [place] [address] 28886- 2306 Jan, Acute non-recurrent frontal sinusitis J01.10 ; Essential hypertension I10 ; Mixed hyperlipidemia E78.2 ; Sore throat J02.9 and Gastroesophageal reflux disease without esophagitis K21.9 [facility] [id number] [place] [address] [id number] Dec, [facility] [id number] [place] [address] 82230 -0398 Dec, Other secondary acute gout of multiple sites M10.49 and Acute upper respiratory infection, unspecified J06.9 [facility] [id number] [place] [address] 07433 -7068 Nov, Sore throat J02.9 ; Acute nasopharyngitis (common cold) J00 and Acute left-sided low back pain with left-sided sciatica M54.42 [facility] [id number] [place] [address] [id number] October, Encounter for dental examination and cleaning without abnormal findings Z01.20 [facility] [id number] [place] [address] 18850 -[phone] October, Acute upper respiratory infection, unspecified J06.9 and Sore throat J02.9 [facility] [id number] [place] [address] [id number] Sep, Encounter for dental examination and cleaning without abnormal findings Z01.20 [facility] [id number] [place] [address] 07710- 3942 Sep, Gastroesophageal reflux disease without esophagitis K21.9 [facility] [id number] [place] [address] 03430 -8572 Aug, Sore throat J02.9 and Acute idiopathic gout of right wrist M10.031 [facility] [address] [id number] Jul, Encounter for dental examination and cleaning without abnormal findings Z01.20 [facility] [id number] [place] [address] 46084- 3062 Jun, [facility] [address] 55056- 3284 Jun, Lower abdominal pain R10.30 [facility] [id number] [place] [address] [phone] Jun, Encounter for dental examination and cleaning without abnormal findings Z01.20 [facility] [id number] [place] [address] 20151- 4427 May, Chronic kidney disease, unspecified stage N18.9 and Mouth ulcer K12.1 [facility] [id number] [place] [address] 79696- 7286 May, Chronic kidney disease, unspecified stage N18.9 [facility] [id number] [place] [address] 18540- 6793 May, Encounter for dental examination and cleaning without abnormal findings Z01.20 [facility] [id number] [place] [address] 02269- 1172 May, Encounter for dental examination and cleaning without abnormal findings Z01.20 [facility] [address] 25071- 3767 16 May, 2016 Hypokalemia E87.6 ; Essential hypertension I10 ; Gastroesophageal reflux disease without esophagitis K21.9 and Right-sided thoracic back pain, unspecified chronicity M54.6 [facility] [address] 29336 -5163 13 May, 2016 Oral candidiasis B37.[address] 6[address]60- [address]00 May, [address] 19152- 1786 May, Cracked tooth K03.81 and Retained dental root K08.[address] 24925- 6868 May, Dental examination Z01.20 [facility] [address] 40237 -3028 Apr, Acute right flank pain R10.9 and Acute left lower quadrant pain R10.[address] 43245- 7882 08 Apr, [address] 30650- 5406 13 Mar, 2016 Dental examination Z01.[address] 75701- 1875 Mar, Dysthymic disorder F34.1 [facility] [address] 51507 -7271 05 Mar, 2016 Gingivitis K05.10 and Torticollis M43.[address] 15200- 2080 08 Feb, 2016 Dysthymic disorder F34.1 [facility] [address] 01861 -0855 Feb, Lymph nodes enlarged R59.9 [facility] [id number] [place] [address] 99091 -9439 Jan, Left otitis media, unspecified chronicity, unspecified otitis media type H66.92 [place] [id number] [place] [address] 78553- 0138 08 Jan, 2016 Dysthymic disorder F34.1 and Generalized anxiety disorder F41.1 [place] [address] 04837- 9236 Dec, Dental examination Z01.20 [place] [address] 82843- 5827 Dec, Dysthymic disorder F34.1 and Generalized anxiety disorder F41.1 [place] [address] 32446- 3952 Dec, Gastroesophageal reflux disease without esophagitis K21.9 and Arthritis M19.90 [place] [address] 67133- 1673 Dec, Dysthymic disorder F34.1 and Generalized anxiety disorder F41.1 [facility] [place] [id number] [place] [address] 61604 -7098 Dec, Gingivitis K05.10 [place] [id number] [place] [address] 61399- 0130 Dec, Essential hypertension I10 ; Epigastric pain R10.13 ; Mixed hyperlipidemia E78.2 ; Proptosis H05.20 and Gastroesophageal reflux disease without esophagitis K21.9 [place] [id number] [place] [address] 04667- 7508 Dec, [place] [id number] [place] [address] 23516- 3549 Nov, Dysthymic disorder F34.1 [facility] [id number] [place] [address] 14157 -1363 Nov, Epigastric pain R10.13 and Gastroesophageal reflux disease , esophagitis presence not specified K21.9 [place] [address] [place] [address] [id number]- 3697 24 Nov, 2015 Depression, unspecified depression type F32.9 [place] [address] 78060- 2742 24 Nov, 2015 Essential hypertension I10 ; Mixed hyperlipidemia E78.2 ; Proptosis H05.20 ; Gastroesophageal reflux disease without esophagitis K21.9 and Depression, unspecified depression type F32.9 [place] [address] 69962- 7621 Nov, [facility] [place] [address] 49484 -3743 21 Nov, 2015 Sore in mouth K13.79 [facility] [address] 97127 -6145 14 Nov, 2015 Left-sided chest wall pain R07.89 and Pain of right calf M79.661 [place] [address] 22499- 7871 06 Nov, 2015 Gastroesophageal reflux disease, esophagitis presence not specified K21.9 and Environmental allergies Z91.09 [facility] [address] [id number] October, Dental examination Z01.20 IMMUNIZATIONS No Known Immunizations SOCIAL HISTORY Never Assessed REASON FOR VISIT DM ed info PLAN OF CARE VITAL SIGNS MEDICATIONS Unknown [...]
--- OUTSIDE RECORDS SUMMARY | 2018-06-01 09:58 | XMS REPORT ---
Author Author EDGARDO BATES [facility] Address [address] [place] [address] Care Team Providers Care Band Booker Name Role Phone EDGARDO BATES Unavailable PROBLEMS Type Condition ICD9-CM Code [id number] Code Onset Dates Condition Status SNOMED Code Problem Acute gout of right ankle, 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 Active 704967519 Problem Vertigo R42 Active 108340795 Problem Type 2 diabetes mellitus without complication, without long-term current use of insulin E11.9 Active 085985227 Problem Severe episode of recurrent major depressive disorder, with psychotic features F33.3 Active 08279776 Problem History of gout Z87.39 Active 144601977 Problem Hammertoe of left foot M20.42 Active 781945653 Problem Exophthalmia H05.20 Active 92741019 Problem Systemic lupus erythematosus, unspecified SLE type, unspecified organ involvement status M32.9 Active 21844216 Problem Hammertoe of right foot M20.41 Active 009723209 Problem Gastroesophageal reflux disease without esophagitis K21.9 Active 610278758 Problem Essential hypertension I10 Active 99496030 Problem Generalized anxiety disorder F41.1 Active 61017128 Problem Arthritis M19.90 Active 5293765 Problem Mixed hyperlipidemia E78.2 Active 544822390 Problem Gingivitis K05.10 Active 41935605 Problem Dysthymic disorder F34.1 Active 22263266 Problem Acute left-sided low back pain with left-sided sciatica M54.42 Active 931249797 ALLERGIES Substance Reaction Event Type Date Status Penicillin V Potassium Unknown Drug Allergy Jul, Active ENCOUNTERS Encounter Location Date Diagnosis [facility] [address] [facility] [id number], [place] [address] Mar, [facility] [address] [facility] [id number], [place] [address] Dec, [facility] [address] [place] [id number] [place] [address] 64146- 7608 Dec, Onychomycosis B35.1 ; Hammertoe of left foot M20.42 ; Hammertoe of right foot M20.41 and Type 2 diabetes mellitus without complication , without long-term current use of insulin E11.9 [place] [id number] [place] [address] 35029- 2115 Nov, Severe episode of recurrent major depressive disorder, with psychotic features F33.3 and BMI 45.0-49.9, adult Z68.42 [place] [id number] [place] [address] 41689- 3746 08 Nov, 2017 Medicare annual wellness visit, [...] gout Z87.39 and Encounter for immunization Z23 [place] [id number] [place] [address] 74245- 1856 October, [place] [id number] [place] [address] 85038- 9853 October, [facility] [id number] [place] [address] [id number] Sep, Dental examination Z01.20 [place] [id number] [place] [address] 72466- 1418 Sep, [place] [address] [address] 5489 Aug, Dental examination Z01.20 [place] [id number] [place] [address] 74746- 4939 Aug, [place] [id number] [place] [address] 82418- 7938 Aug, [facility] [id number] [place] [address] 90092 -2349 14 Aug, 2017 Aphthous stomatitis K12.0 and BMI 45.0-49.9, adult Z68.42 [facility] [address] [address]- 9892 05 Aug, 2017 [place] [address] 46362- 1551 05 Aug, 2017 Vertigo R42 ; Impacted cerumen of both ears H61.23 ; Abnormal RBC indices R71.8 ; Exophthalmia H05.20 ; Elevated glucose R73.09 ; Type 2 diabetes mellitus without complication, without long-term current use of insulin E11.9 and BMI 45.0-49.9, adult Z68.42 [place] [address] 47721- 0494 19 Jul, 2017 Dizziness R42 and BMI 45.0-49.9, adult Z68.42 [facility] IN [facility] [address] 64[address]677 Jun, Vertigo R42 and BMI 45.0-49.9, adult Z68.42 [facility] [address] [id number] May, Dental caries K02.9 [facility] [address] [id number] 18 May, 2017 Encounter for dental exam and cleaning w/o abnormal findings Z01.20 [place] [id number] [place] [address] 98287- 7768 07 Apr, 2017 Acute non-recurrent maxillary sinusitis J01.00 [place] [address] 33791- 4529 09 Mar, 2017 [place] [address] 80379- 9662 11 Feb, 2017 Acute gout of right ankle, 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 [place] [address] [address] 11 Feb, 2017 [facility] [id number] [place] [address] [phone] Jan, Dental examination Z01.20 [facility] [id number] [place] [address] [phone] Jan, Encounter for dental examination and cleaning without abnormal findings Z01.20 [facility] [id number] [place] [address] [phone] Jan, Dental examination Z01.20 [facility] [id number] [place] [address] 44099- 3816 Jan, Acute non-recurrent frontal sinusitis J01.10 ; Essential hypertension I10 ; Mixed hyperlipidemia E78.2 ; Sore throat J02.9 and Gastroesophageal reflux disease without esophagitis K21.9 [facility] [id number] [place] [address] [id number] Dec, [facility] [id number] [place] [address] [phone] -[phone] Dec, Other secondary acute gout of multiple sites M10.49 and Acute upper respiratory infection, unspecified J06.9 [facility] [id number] [place] [address] 03797 -4146 Nov, Sore throat J02.9 ; Acute nasopharyngitis (common cold) J00 and Acute left-sided low back pain with left-sided sciatica M54.42 [facility] [address] [place] [address] [phone] October, Encounter for dental examination and cleaning without abnormal findings Z01.20 [facility] [id number] [place] [address] 47430 2546 October, Acute upper respiratory infection, unspecified J06.9 and Sore throat J02.9 [facility] [id number] [place] [address] [phone] Sep, Encounter for dental examination and cleaning without abnormal findings Z01.20 [facility] [id number] [place] [address] 21834- 4197 Sep, Gastroesophageal reflux disease without esophagitis K21.9 [facility] [id number] [place] [address] 24623 -3253 Aug, Sore throat J02.9 and Acute idiopathic gout of right wrist M10.031 [facility] [address] [id number] Jul, Encounter for dental examination and cleaning without abnormal findings Z01.20 [facility] [address] 95875- 7357 Jun, [facility] [address] 30570- 653 Jun, Lower abdominal pain R10.30 [facility] [address] [id number] Jun, Encounter for dental examination and cleaning without abnormal findings Z01.20 [facility] [address] 16058- 0913 May, Chronic kidney disease, unspecified stage N18.9 and Mouth ulcer K12.1 [facility] [address] 19394- 6978 May, Chronic kidney disease, unspecified stage N18.9 [facility] [id number] [place] [address] 83666- 2598 May, Encounter for dental examination and cleaning without abnormal findings Z01.20 [facility] [address] 69168- 9477 May, Encounter for dental examination and cleaning without abnormal findings Z01.20 [facility] [id number] [place] [address] 70141- 7023 16 May, 2016 Hypokalemia E87.6 ; Essential hypertension I10 ; Gastroesophageal reflux disease without esophagitis K21.9 and Right-sided thoracic back pain, unspecified chronicity M54.6 [facility] [place] [id number] [place] [address] 62943 -6337 May, Oral candidiasis B37.0 [place] [address] 17306- 6717 May, [place] [address] 87971- 6963 May, Cracked tooth K03.81 and Retained dental root K08.3 [place] [address] 58249- 2936 May, Dental examination Z01.20 [facility] [place] [address] 89236 -7595 Apr, Acute right flank pain R10.9 and Acute left lower quadrant pain R10.32 [place] [address] 32523- 5708 Apr, Bronchitis J40 [place] [address] 43141- 8004 Mar, Dental examination Z01.20 [place] [address] 99216- 6907 Mar, Dysthymic disorder F34.1 [facility] IN [place] [address] 69241 -2203 Mar, Gingivitis K05.10 and Torticollis M43.6 [place] [id number] [place] [address] 72002- 1321 Feb, Dysthymic disorder F34.1 [facility] [place] [address] 83559 -0311 Feb, Lymph nodes enlarged R59.9 [facility] [place] [address] 52780 -2313 Jan, Left otitis media, unspecified chronicity, unspecified otitis media type H66.92 [place] [id number] [place] [address] 67137- 6216 Jan, Dysthymic disorder F34.1 and Generalized anxiety disorder F41.1 [place] [address] 96262- 5877 Dec, Dental examination Z01.20 [place] [address] 22356- 6308 Dec, Dysthymic disorder F34.1 and Generalized anxiety disorder F41.1 [place] [address] 01356- 1354 Dec, Gastroesophageal reflux disease without esophagitis K21.9 and Arthritis M19.90 [place] [address] 39543- 8187 Dec, Dysthymic disorder F34.1 and Generalized anxiety disorder F41.1 [facility] [address] 62131 -4967 Dec, Gingivitis K05.10 [place] [address] 42767- 7750 Dec, Essential hypertension I10 ; Epigastric pain R10.13 ; Mixed hyperlipidemia E78.2 ; Proptosis H05.20 and Gastroesophageal reflux disease without esophagitis K21.9 [place] [id number] [place] [address] 53488- 4787 Dec, [place] [address] 96738- 6920 Nov, Dysthymic disorder F34.1 [facility] [address] 63625 -6193 Nov, Epigastric pain R10.13 and Gastroesophageal reflux disease , esophagitis presence not specified K21.9 [place] [address] 65482- 2687 Nov, Depression, unspecified depression type F32.9 [facility] [address] [place], [place] [address] 24 Nov, 2015 Essential hypertension I10 ; Mixed hyperlipidemia E78.2 ; Proptosis H05.20 ; Gastroesophageal reflux disease without esophagitis K21.9 and Depression, unspecified depression type F32.9 [facility] [id number] [place] [id number] 8629 Nov, [facility] [id number] [place] [address] 40815 -7027 21 Nov, 2015 Sore in mouth K13.79 [facility] [place] [id number] [place] [address] 92474 -0080 14 Nov, 2015 Left-sided chest wall pain R07.89 and Pain of right calf M79.661 [place] [id number] [place] [address] 51921- 9100 06 Nov, 2015 Gastroesophageal reflux disease, esophagitis presence not specified K21.9 and Environmental allergies Z91.09 [facility] [address] [id number] October, Dental examination Z01.20 IMMUNIZATIONS No Known Immunizations SOCIAL HISTORY Never Assessed REASON FOR VISIT dizziness walkin f/u. Still having dizziness that is getting worse. Dizzy all the time but started only when was getting up from laying or sitting. Went to walk in care and was made follow up appt if not getting better. Reid RN PLAN OF CARE Activity Details Follow Up 2 Weeks Reason: VITAL SIGNS Height 70 in 2017-08-11 Weight 320 lbs 2017-08-11 Temperature 98.3 degrees Fahrenheit 2017-08-11 Heart Rate 88 bpm 2017-08-11 Respiratory Rate 20 2017-08-11 BMI 45.91 kg/m2 2017-08-11 Blood pressure systolic 132 mmHg 2017-08-11 Blood pressure diastolic 80 mmHg 2017-08-11 MEDICATIONS Medication Instructions Dosage Frequency Start Date End Date Duration Status Uloric 80 MG Orally Once a day 1 tablet 24h Active Pravastatin Sodium 10 mg Orally Once a day 1 tablet 24h 30 days Active Meclizine HCl 25 MG Orally every 8 hours 1 tablet as needed 8h Jun, 7 days Not-Taking Eye Health Formula 180-15-5 MG Active Aripiprazole 5 MG Orally Once a day 1 tablet 24h Active Protonix 40 mg Orally Once a day 1 tablet 24h 30 Active Mens Multi Vitamin & Mineral Active Lisinopril 10 mg Orally Once a day 1 tablet 24h 30 days Active RESULTS No Results PROCEDURES Procedure Date Ordered Result Body Site LAB NOT BILLED BY [facility] Aug 11, 2017 RAVI, ROUTINE* Aug 11, 2017 [facility] VISIT ESTABLISHED PATIENT Aug 11, 2017 INSTRUCTIONS MEDICATIONS ADMINISTERED No Known Medications [...]
--- OUTSIDE RECORDS SUMMARY | 2018-06-01 09:58 | XMS REPORT ---
Author Author KADE KENYETTA [facility] Address [address] [place] [address] Care Team Providers Care Development Trainer Name Role Phone KENYETTA BRAUN Unavailable PROBLEMS Type Condition ICD9-CM Code DVM73-ZN Code Onset Dates Condition Status SNOMED Code Problem Acute gout of right ankle, 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 Active 658126145 Problem Vertigo R42 Active 663388530 Problem Type 2 diabetes mellitus without complication, without long-term current use of insulin E11.9 Active 179936578 Problem Severe episode of recurrent major depressive disorder, with psychotic features F33.3 Active 47249611 Problem History of gout Z87.39 Active 754120040 Problem Hammertoe of left foot M20.42 Active 671434722 Problem Exophthalmia H05.20 Active 72475273 Problem Systemic lupus erythematosus, unspecified SLE type, unspecified organ involvement status M32.9 Active 42516002 Problem Hammertoe of right foot M20.41 Active 591256384 Problem Gastroesophageal reflux disease without esophagitis K21.9 Active 672841988 Problem Essential hypertension I10 Active 53408164 Problem Generalized anxiety disorder F41.1 Active 71398675 Problem Arthritis M19.90 Active 2651462 Problem Mixed hyperlipidemia E78.2 Active 323820597 Problem Gingivitis K05.10 Active 86778514 Problem Dysthymic disorder F34.1 Active 79827213 Problem Acute left-sided low back pain with left-sided sciatica M54.42 Active 821351155 ALLERGIES No Information ENCOUNTERS Encounter Location Date Diagnosis [facility] [address] [facility] [id number] [address] Mar, [facility] [address] [id number] [address] Jan, [facility] [address] [id number] [address] Dec, Severe episode of recurrent major depressive disorder, with psychotic features F33.3 and BMI 45.0-49.9, adult Z68.42 [place] [id number] [place] [address]42- 8704 Dec, Onychomycosis B35.1 ; Hammertoe of left foot M20.42 ; Hammertoe of right foot M20.41 and Type 2 diabetes mellitus without complication , without long-term current use of insulin E11.9 [place] [id number] [place] [address] 49252- 0557 13 Nov, 2017 Severe episode of recurrent major depressive disorder, with psychotic features F33.3 and BMI 45.0-49.9, adult Z68.42 [place] [id number] [place] [address] 18170- 0134 Nov, Medicare annual wellness visit, initial Z00.00 ; Type 2 diabetes mellitus without complication, without long-term current use of insulin E11.9 ; Generalized anxiety disorder F41.1 ; Essential hypertension I10 ; Mixed hyperlipidemia E78.2 ; Arthritis M19.90 ; Dysthymic disorder F34.1 ; Systemic lupus erythematosus, unspecified SLE type, unspecified organ involvement status M32.9 ; History of gout Z87.39 and Encounter for immunization Z23 [place] [id number] [place] [address] 28744- 2461 October, [place] [id number] [place] [address] 38562- 7821 October, [facility] [id number] [place] [address] [id number] Sep, Dental examination Z01.20 [place] [id number] [place] [address] 04689- 5148 Sep, [place] [id number] [place] [address] 98141- 5174 Aug, Dental examination Z01.20 [place] [id number] [place] [address] 42852- 4266 Aug, [facility] [id number] [place] [address] 81902- 6642 Aug, [facility] WALK [facility] [place] [id number] [place] [address] 99081 -0817 Aug, Aphthous stomatitis K12.0 and BMI 45.0-49.9, adult Z68.42 [place] [address] 59355- 4968 05 Aug, 2017 [place] [address] 41129- 7234 Aug, Vertigo R42 ; Impacted cerumen of both ears H61.23 ; Abnormal RBC indices R71.8 ; Exophthalmia H05.20 ; Elevated glucose R73.09 ; Type 2 diabetes mellitus without complication, without long-term current use of insulin E11.9 and BMI 45.0-49.9, adult Z68.42 [facility] [id number] [place] [address] 87011- 6505 Jul, Dizziness R42 and BMI 45.0-49.9, adult Z68.42 [facility] IN [facility] [id number] [place] [address] 25395 -7576 Jun, Vertigo R42 and BMI 45.0-49.9, adult Z68.42 [facility] [id number] [place] [address] [id number] May, Dental caries K02.9 [facility] [id number] [place] [address] [phone] May, Encounter for dental exam and cleaning w/o abnormal findings Z01.20 [place] [address] [address]73- 1977 07 Apr, 2017 Acute non-recurrent maxillary sinusitis J01.[address] 62319- 6791 09 Mar, 2017 [place] [id number] [place] [address] [id number]- 2466 11 Feb, 2017 Acute gout of right ankle, 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 [facility] [id number] [place] [address] 92098- 1036 11 Feb, 2017 [facility] [id number] [place] [address] [id number] Jan, Dental examination Z01.20 [facility] [address] [id number] Jan, Encounter for dental examination and cleaning without abnormal findings Z01.20 [facility] [address] [id number] Jan, Dental examination Z01.20 [facility] [address] [address]31- [address]86 Jan, Acute non-recurrent frontal sinusitis J01.10 ; Essential hypertension I10 ; Mixed hyperlipidemia E78.2 ; Sore throat J02.9 and Gastroesophageal reflux disease without esophagitis K21.9 [facility] [address] [id number] Dec, [facility] [id number] [place] [address] 12852 -5403 Dec, Other secondary acute gout of multiple sites M10.49 and Acute upper respiratory infection, unspecified J06.9 [facility] [id number] [place] [address] 54756 -2530 Nov, Sore throat J02.9 ; Acute nasopharyngitis (common cold) J00 and Acute left-sided low back pain with left-sided sciatica M54.42 [facility] [id number] [place] [address] [id number] October, Encounter for dental examination and cleaning without abnormal findings Z01.20 [facility] [id number] [place] [address] 87072 -9166 October, Acute upper respiratory infection, unspecified J06.9 and Sore throat J02.9 [facility] [id number] [place] [address] [id number] Sep, Encounter for dental examination and cleaning without abnormal findings Z01.20 [facility] [id number] [place] [address] 33308- 6329 Sep, Gastroesophageal reflux disease without esophagitis K21.9 [facility] WALK IN [facility] [id number] [place] [address] 61953 -1639 Aug, Sore throat J02.9 and Acute idiopathic gout of right wrist M10.031 [facility] [address] [id number] Jul, Encounter for dental examination and cleaning without abnormal findings Z01.20 [facility] [id number] [place] [address] 71066- 7178 Jun, [facility] [address] 94131- 0626 Jun, Lower abdominal pain R10.30 [facility] [id number] [place] [address] [phone] Jun, Encounter for dental examination and cleaning without abnormal findings Z01.20 [facility] [id number] [place] [address] 01006- 3657 May, Chronic kidney disease, unspecified stage N18.9 and Mouth ulcer K12.1 [facility] [id number] [place] [address] 36528- 7016 May, Chronic kidney disease, unspecified stage N18.9 [facility] [id number] [place] [address] 00658- 7854 May, Encounter for dental examination and cleaning without abnormal findings Z01.20 [facility] [id number] [place] [address] 46566- 4531 May, Encounter for dental examination and cleaning without abnormal findings Z01.20 [facility] [id number] [place] [address] 16 May, 2016 Hypokalemia E87.6 ; Essential hypertension I10 ; Gastroesophageal reflux disease without esophagitis K21.9 and Right-sided thoracic back pain, unspecified chronicity M54.6 [facility] WALK IN [place] [address] 81845 -5489 13 May, 2016 Oral candidiasis B37.0 [place] [address] 42679- 6422 May, [place] [address] 29240- 1197 May, Cracked tooth K03.81 and Retained dental root K08.[address] 16073- 8520 May, Dental examination Z01.20 [facility] IN [address] [address]326 28 Apr, 2016 Acute right flank pain R10.9 and Acute left lower quadrant pain R10.[address] 78073- 6675 08 Apr, 2016 Bronchitis J40 [place] [address] 75122- 3344 13 Mar, 2016 Dental examination Z01.20 [place] [address] 74534- 4816 07 Mar, 2016 Dysthymic disorder F34.1 [facility] WALK IN [address] 85938 -2368 05 Mar, 2016 Gingivitis K05.10 and Torticollis M43.6 [place] [address] 07171- 0902 08 Feb, 2016 Dysthymic disorder F34.1 [facility] WALK IN [place] [address] 19378 -2323 07 Sep, 2016 Lymph nodes enlarged R59.9 [facility] WALK IN [facility] [id number] [place] [address] 05264 -0180 Jan, Left otitis media, unspecified chronicity, unspecified otitis media type H66.92 [place] [id number] [place] [address] 16015- 6429 08 Jan, 2016 Dysthymic disorder F34.1 and Generalized anxiety disorder F41.1 [place] [address] 01730- 9482 Dec, Dental examination Z01.20 [place] [address] 10829- 0019 Dec, Dysthymic disorder F34.1 and Generalized anxiety disorder F41.1 [place] [address] 48480- 1103 Dec, Gastroesophageal reflux disease without esophagitis K21.9 and Arthritis M19.90 [place] [id number] [place] [address] 04108- 9992 Dec, Dysthymic disorder F34.1 and Generalized anxiety disorder F41.1 [facility] [place] [id number] [place] [address] 56804 -5406 Dec, Gingivitis K05.10 [place] [id number] [place] [address] 09232- 7084 Dec, Essential hypertension I10 ; Epigastric pain R10.13 ; Mixed hyperlipidemia E78.2 ; Proptosis H05.20 and Gastroesophageal reflux disease without esophagitis K21.9 [place] [id number] [place] [address] 42662- 8582 Dec, [place] [address] 93174- 2989 Nov, Dysthymic disorder F34.1 [facility] IN [facility] [id number] [place] [address] 79636 -0159 Nov, Epigastric pain R10.13 and Gastroesophageal reflux disease , esophagitis presence not specified K21.9 [place] [id number] [place] [address] 60336- 0912 24 Nov, 2015 Depression, unspecified depression type F32.9 [place] [id number] [place] [address] 22392- 5483 24 Nov, 2015 Essential hypertension I10 ; Mixed hyperlipidemia E78.2 ; Proptosis H05.20 ; Gastroesophageal reflux disease without esophagitis K21.9 and Depression, unspecified depression type F32.9 [place] [id number] [place] [address] 91934- 3689 22 Nov, 2015 [facility] WALK IN [place] [address] 30761 -5693 21 Nov, 2015 Sore in mouth K13.79 [facility] WALK IN [place] [address] 71222 -2034 14 Nov, 2015 Left-sided chest wall pain R07.89 and Pain of right calf M79.661 [place] [id number] [place] [address] 69301- 1298 06 Nov, 2015 Gastroesophageal reflux disease, esophagitis presence not specified K21.9 and Environmental allergies Z91.09 [facility] [address] [id number] October, Dental examination Z01.20 IMMUNIZATIONS No Known Immunizations SOCIAL HISTORY Never Assessed REASON FOR VISIT [facility] PLAN OF CARE Activity Details Follow Up 4 Weeks Reason:recare VITAL SIGNS MEDICATIONS Unknown Medications RESULTS No Results PROCEDURES Procedure Date Ordered Result Body Site SCREENING OF A PATIENT September 17, 2017 Billing Notes on claim September 17, 2017 INSTRUCTIONS MEDICATIONS ADMINISTERED No Known Medications [...]
--- OUTSIDE RECORDS SUMMARY | 2018-06-01 09:59 | XMS REPORT ---
Author Author PAZ LANDERS [facility] Address [address] [place] [address] Care Team Providers Care Hemp Fiber Taker Off Name Role Phone PAZ LANDERS Unavailable PROBLEMS Type Condition ICD9-CM Code SXI34-YA Code Onset Dates Condition Status SNOMED Code Problem Acute gout of right ankle, 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 Active 352551617 Problem Vertigo R42 Active 932897005 Problem Type 2 diabetes mellitus without complication, without long-term current use of insulin E11.9 Active 813862412 Problem Severe episode of recurrent major depressive disorder, with psychotic features F33.3 Active 79606997 Problem History of gout Z87.39 Active 020406445 Problem Hammertoe of left foot M20.42 Active 985146316 Problem Exophthalmia H05.20 Active 67916005 Problem Systemic lupus erythematosus, unspecified SLE type, unspecified organ involvement status M32.9 Active 94202769 Problem Hammertoe of right foot M20.41 Active 385331912 Problem Gastroesophageal reflux disease without esophagitis K21.9 Active 022548115 Problem Essential hypertension I10 Active 24351890 Problem Generalized anxiety disorder F41.1 Active 33269598 Problem Arthritis M19.90 Active 9952843 Problem Mixed hyperlipidemia E78.2 Active 382023194 Problem Gingivitis K05.10 Active 72108262 Problem Dysthymic disorder F34.1 Active 87788913 Problem Acute left-sided low back pain with left-sided sciatica M54.42 Active 902985658 ALLERGIES Substance Reaction Event Type Date Status Penicillin V Potassium Unknown Drug Allergy Aug, Active ENCOUNTERS Encounter Location Date Diagnosis [facility] [address] [facility] [id number] [address] Mar, [facility] [address] [facility] [id number] [id number] Jan, [facility] [id number] [address] Dec, Severe episode of recurrent major depressive disorder, with psychotic features F33.3 and BMI 45.0-49.9, adult Z68.42 [place] [address] [place] [id number] [place] [address]329- 6519 Dec, Onychomycosis B35.1 ; Hammertoe of left foot M20.42 ; Hammertoe of right foot M20.41 and Type 2 diabetes mellitus without complication , without long-term current use of insulin E11.9 [facility] [address] [place] [id number] [place] [address] 90481- 7323 13 Nov, 2017 Severe episode of recurrent major depressive disorder, with psychotic features F33.3 and BMI 45.0-49.9, adult Z68.42 [place] [address] [place] [id number] [place] [address] 64504- 1261 Nov, Medicare annual wellness visit, initial Z00.00 ; Type 2 diabetes mellitus without complication, without long-term current use of insulin E11.9 ; Generalized anxiety disorder F41.1 ; Essential hypertension I10 ; Mixed hyperlipidemia E78.2 ; Arthritis M19.90 ; Dysthymic disorder F34.1 ; Systemic lupus erythematosus, unspecified SLE type, unspecified organ involvement status M32.9 ; History of gout Z87.39 and Encounter for immunization Z23 [place] [address] [place] [id number] [place] [address] 15351- 1179 October, [place] [address] [place] [id number] [place] [address] 27226- 9585 October, [facility] [id number] [place] [address] [id number] Sep, Dental examination Z01.20 [place] [address] [place] [id number] [place] [address] 03652- 9902 Sep, [place] [address] [place] [id number] [place] [address] 11571- 2558 Aug, Dental examination Z01.20 [place] [address] [place] [id number] [place] [address] 17384- 5465 Aug, [facility] [address] [address] Aug, [facility] [address] [address] [id number] [place] [address] 31818 -0127 14 Aug, 2017 Aphthous stomatitis K12.0 and BMI 45.0-49.9, adult Z68.42 [place] [address] [address]197- [address] 05 Aug, 2017 [place] [address] [address]- [address] Aug, Vertigo R42 ; Impacted cerumen of both ears H61.23 ; Abnormal RBC indices R71.8 ; Exophthalmia H05.20 ; Elevated glucose R73.09 ; Type 2 diabetes mellitus without complication, without long-term current use of insulin E11.9 and BMI 45.0-49.9, adult Z68.42 [place] [address] [place] [id number] [place] [address] 31906- 2331 Jul, Dizziness R42 and BMI 45.0-49.9, adult Z68.42 [facility] [id number] [place] [address] 33088 -8268 Jun, Vertigo R42 and BMI 45.0-49.9, adult Z68.42 [facility] [address] [place] [id number] [place] [address] [id number] May, Dental caries K02.9 [facility] [address] [id number] May, Encounter for dental exam and cleaning w/o abnormal findings Z01.20 [place] [address] [address] [id number] [place] [address] 42196- 8229 07 Apr, 2017 Acute non-recurrent maxillary sinusitis J01.00 [place] [address] 8[address]39- 1106 Mar, [facility] [address] [address] [id number] [place] [address] 117614- 9569 11 Feb, 2017 Acute gout of right ankle, 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 [facility] [address] [id number] [place] [address] 80344- 1226 Feb, [facility] [id number] [place] [address] [id number] Jan, Dental examination Z01.20 [facility] [address] [id number] Jan, Encounter for dental examination and cleaning without abnormal findings Z01.20 [facility] [address] [id number] Jan, Dental examination Z01.20 [facility] [address] 18423- 9696 Jan, Acute non-recurrent frontal sinusitis J01.10 ; Essential hypertension I10 ; Mixed hyperlipidemia E78.2 ; Sore throat J02.9 and Gastroesophageal reflux disease without esophagitis K21.9 [facility] [address] [id number] Dec, [facility] [address] [address] [id number] [place] [address] 16657 -5565 Dec, Other secondary acute gout of multiple sites M10.49 and Acute upper respiratory infection, unspecified J06.9 [facility] [id number] [place] [address] 58845 -6359 Nov, Sore throat J02.9 ; Acute nasopharyngitis (common cold) J00 and Acute left-sided low back pain with left-sided sciatica M54.42 [facility] [address] [id number] [place] [address] [id number] October, Encounter for dental examination and cleaning without abnormal findings Z01.20 [facility] [address] [address] [id number] [place] [address] 12197 -1843 October, Acute upper respiratory infection, unspecified J06.9 and Sore throat J02.9 [facility] [address] [id number] [place] [address] [id number] Sep, Encounter for dental examination and cleaning without abnormal findings Z01.20 [facility] [address] [address] [id number] [place] [address] 77414- 6679 Sep, Gastroesophageal reflux disease without esophagitis K21.9 [facility] [address] [id number] [place] [address] 94999 -1527 Aug, Sore throat J02.9 and Acute idiopathic gout of right wrist M10.031 [facility] [address] [id number] Jul, Encounter for dental examination and cleaning without abnormal findings Z01.20 [facility] [address] 64724- 3829 Jun, [facility] [address] 15854- 3841 Jun, Lower abdominal pain R10.30 [facility] [address] [id number] Jun, Encounter for dental examination and cleaning without abnormal findings Z01.20 [facility] [address] [id number] [place] [address] 60627- 1790 May, Chronic kidney disease, unspecified stage N18.9 and Mouth ulcer K12.1 [facility] [id number] [place] [address] 69664- 9477 May, Chronic kidney disease, unspecified stage N18.9 [facility] [address] 59630- 7416 May, Encounter for dental examination and cleaning without abnormal findings Z01.20 [facility] [address] [address] [id number] [place] [address] 48739- 7459 May, Encounter for dental examination and cleaning without abnormal findings Z01.20 [place] [address] [address]39- 9246 16 May, 2016 Hypokalemia E87.6 ; Essential hypertension I10 ; Gastroesophageal reflux disease without esophagitis K21.9 and Right-sided thoracic back pain, unspecified chronicity M54.6 [facility] [place] [address] 89156 -0376 13 May, 2016 Oral candidiasis B37.0 [place] [address] 78831- 6283 May, [place] [address] 30570- 3552 May, Cracked tooth K03.81 and Retained dental root K08.3 [place] [address] 70742- 2071 May, Dental examination Z01.20 [facility] [place] [address] 48916 -7001 28 Apr, 2016 Acute right flank pain R10.9 and Acute left lower quadrant pain R10.32 [place] [address] 07444- 2696 08 Apr, 2016 Bronchitis J40 [place] [address] 75852- 1390 13 Mar, 2016 Dental examination Z01.20 [place] [address] 85469- 6576 07 Mar, 2016 Dysthymic disorder F34.1 [facility] [address] [address]3072 05 Mar, 2016 Gingivitis K05.10 and Torticollis M43.6 [place] [address] 70000- 4450 08 Feb, 2016 Dysthymic disorder F34.1 [facility] [place] [address] 87781 -8098 07 Feb, 2016 Lymph nodes enlarged R59.9 [facility] [address] 04025 -6765 Jan, Left otitis media, unspecified chronicity, unspecified otitis media type H66.92 [place] [address] 86073- 9496 08 Jan, 2016 Dysthymic disorder F34.1 and Generalized anxiety disorder F41.1 [place] [address] 04798- 5211 Dec, Dental examination Z01.20 [place] [address] 72646- 7616 Dec, Dysthymic disorder F34.1 and Generalized anxiety disorder F41.1 [place] [address] 53896- 1800 Dec, Gastroesophageal reflux disease without esophagitis K21.9 and Arthritis M19.90 [place] [address] 59568- 6926 Dec, Dysthymic disorder F34.1 and Generalized anxiety disorder F41.1 [facility] [place] [address] [id number] [place] [address] 84152 -3213 Dec, Gingivitis K05.10 [place] [address] 61788- 3390 Dec, Essential hypertension I10 ; Epigastric pain R10.13 ; Mixed hyperlipidemia E78.2 ; Proptosis H05.20 and Gastroesophageal reflux disease without esophagitis K21.9 [place] [address] 05330- 7701 Dec, [place] [address] 84114- 7592 Nov, Dysthymic disorder F34.1 [facility] [place] [address] [place] [address] [place] [id number]157 Nov, Epigastric pain R10.13 and Gastroesophageal reflux disease , esophagitis presence not specified K21.9 [place] [address] [place] 413880- 1913 24 Nov, 2015 Depression, unspecified depression type F32.9 [place] [address] [place] 413887- 3730 24 Nov, 2015 Essential hypertension I10 ; Mixed hyperlipidemia E78.2 ; Proptosis H05.20 ; Gastroesophageal reflux disease without esophagitis K21.9 and Depression, unspecified depression type F32.9 [place] [address] [place] [address] Nov, [facility] [place] [address] 867119 -6538 Nov, Sore in mouth K13.79 [facility] [place] [address] [place] 413888 -7157 14 Nov, 2015 Left-sided chest wall pain R07.89 and Pain of right calf M79.661 [place] [address] [place] [id number]- 1299 06 Nov, 2015 Gastroesophageal reflux disease, esophagitis presence not specified K21.9 and Environmental allergies Z91.09 [facility] [address] [id number] October, Dental examination Z01.20 IMMUNIZATIONS No Known Immunizations SOCIAL HISTORY Never Assessed REASON FOR VISIT mouth sore JStrasserRN PLAN OF CARE Activity Details Follow Up prn Reason: VITAL SIGNS Height 70 in 2017-09-03 Weight 322 lbs 2017-09-03 Temperature 99.1 degrees Fahrenheit 2017-09-03 Heart Rate 100 bpm 2017-09-03 Respiratory Rate 22 2017-09-03 BMI 46.20 kg/m2 2017-09-03 Blood pressure systolic 140 mmHg 2017-09-03 Blood pressure diastolic 76 mmHg 2017-09-03 MEDICATIONS Medication Instructions Dosage Frequency Start Date End Date Duration Status Eye Health Formula 180-15-5 MG Active Lisinopril [...] with meals 12h Aug, 30 day(s) Active RESULTS No Results PROCEDURES Procedure Date Ordered Result Body Site [facility] VISIT ESTABLISHED PATIENT September 03, 2017 INSTRUCTIONS MEDICATIONS ADMINISTERED No Known [...]
--- OUTSIDE RECORDS SUMMARY | 2018-06-01 09:59 | XMS REPORT ---
Author Author EDGARDO BATES [facility] Address [address] [place] [address] Care Team Providers Care Np Name Role Phone EDGARDO BATES Unavailable PROBLEMS Type Condition ICD9-CM Code [id number] Code Onset Dates Condition Status SNOMED Code Problem Acute gout of right ankle, 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 Active 184086353 Problem Vertigo R42 Active 180375763 Problem Type 2 diabetes mellitus without complication, without long-term current use of insulin E11.9 Active 310906295 Problem Severe episode of recurrent major depressive disorder, with psychotic features F33.3 Active 27740886 Problem History of gout Z87.39 Active 040691715 Problem Hammertoe of left foot M20.42 Active 587947397 Problem Exophthalmia H05.20 Active 90623234 Problem Systemic lupus erythematosus, unspecified SLE type, unspecified organ involvement status M32.9 Active 59600134 Problem Hammertoe of right foot M20.41 Active 836199792 Problem Gastroesophageal reflux disease without esophagitis K21.9 Active 784001963 Problem Essential hypertension I10 Active 18484157 Problem Generalized anxiety disorder F41.1 Active 80309056 Problem Arthritis M19.90 Active 8098811 Problem Mixed hyperlipidemia E78.2 Active 359094418 Problem Gingivitis K05.10 Active 45472075 Problem Dysthymic disorder F34.1 Active 05209570 Problem Acute left-sided low back pain with left-sided sciatica M54.42 Active [id number] ALLERGIES No Information ENCOUNTERS Encounter Location Date Diagnosis [facility] [address] [facility] [id number] [address] 05 Mar, 2018 [facility] [address] [place] [id number] [address] Dec, [facility] [address] [id number] [address] Dec, Onychomycosis B35.1 ; Hammertoe of left foot M20.42 ; Hammertoe of right foot M20.41 and Type 2 diabetes mellitus without complication , without long-term current use of insulin E11.9 [facility] [address] [place] [id number] [place] [address] Nov, Severe episode of recurrent major depressive disorder, with psychotic features F33.3 and BMI 45.0-49.9, adult Z68.42 [place] [address] [address] 08 Nov, 2017 Medicare annual wellness visit, [...] gout Z87.39 and Encounter for immunization Z23 [place] [address] [place] [id number] [place] [address] October, [place] [address] [address] October, [facility] [address] [id number] Sep, Dental examination Z01.20 [place] [address] [address] [id number] [place] [address]- [address] Sep, [place] [address] [place] [address] [id number] [place] [address]- 0937 Aug, Dental examination Z01.20 [place] [address] [address] [id number] [place] [address] 60931[address] 3[address] Aug, [place] [address] [address] [id number] [place] [address]607- [address]32 Aug, [facility] [address] [phone] 14 Aug, 2017 Aphthous stomatitis K12.0 and BMI 45.0-49.9, adult Z68.42 [place] [address] [place] [id number] [address] 05 Aug, 2017 [place] [address] [address] Aug, Vertigo R42 ; Impacted cerumen of both ears H61.23 ; Abnormal RBC indices R71.8 ; Exophthalmia H05.20 ; Elevated glucose R73.09 ; Type 2 diabetes mellitus without complication, without long-term current use of insulin E11.9 and BMI 45.0-49.9, adult Z68.42 [place] [address] [address] 19 Jul, 2017 Dizziness R42 and BMI 45.0-49.9, adult Z68.42 [facility] [address] [address] Jun, Vertigo R42 and BMI 45.0-49.9, adult Z68.42 [facility] [address] [id number] May, Dental caries K02.9 [facility] [address] [id number] May, 2017 Encounter for dental exam and cleaning w/o abnormal findings Z01.20 [place] [address] [address] 07 Apr, 2017 Acute non-recurrent maxillary sinusitis J01.00 [place] [address] [address] 09 Mar, 2017 [place] [address] [address]- [address] 11 Feb, 2017 Acute gout of right ankle, 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 [place] [address] [address] Feb, [facility] [id number] [id number] Jan, Dental examination Z01.20 [facility] [id number] [place] [id number] Jan, Encounter for dental examination and cleaning without abnormal findings Z01.20 [facility] [id number] [place] [id number] Jan, Dental examination Z01.20 [facility] [id number] [place] [address] 2546 Jan, Acute non-recurrent frontal sinusitis J01.10 ; Essential hypertension I10 ; Mixed hyperlipidemia E78.2 ; Sore throat J02.9 and Gastroesophageal reflux disease without esophagitis K21.9 [facility] [id number] [place] [address] [id number] Dec, [facility] [id number] [place] [address] Dec, Other secondary acute gout of multiple sites M10.49 and Acute upper respiratory infection, unspecified J06.9 [facility] [place] [id number] [place] [address]16 Nov, Sore throat J02.9 ; Acute nasopharyngitis (common cold) J00 and Acute left-sided low back pain with left-sided sciatica M54.42 [facility] [address] [place] [phone] October, Encounter for dental examination and cleaning without abnormal findings Z01.20 [facility] [id number] [place] [address] 2546 October, Acute upper respiratory infection, unspecified J06.9 and Sore throat J02.9 [facility] [address] [place] [address] [id number] Sep, Encounter for dental examination and cleaning without abnormal findings Z01.20 [facility] [id number] [place] [address] 24308- 7326 Sep, Gastroesophageal reflux disease without esophagitis K21.9 [facility] [address] [address] Aug, Sore throat J02.9 and Acute idiopathic gout of right wrist M10.031 [facility] [address] [id number] Jul, Encounter for dental examination and cleaning without abnormal findings Z01.20 [facility] [address] [address] Jun, [facility] [address] [address] Jun, Lower abdominal pain R10.30 [facility] [address] [id number] Jun, Encounter for dental examination and cleaning without abnormal findings Z01.20 [facility] [id number] [place] [address] 24952- 6877 May, Chronic kidney disease, unspecified stage N18.9 and Mouth ulcer K12.1 [facility] [id number] [place] [address] 39146- 4157 May, Chronic kidney disease, unspecified stage N18.9 [facility] [id number] [place] [address] 17397- 8009 May, Encounter for dental examination and cleaning without abnormal findings Z01.20 [facility] [id number] [place] [address] 93761- 4111 May, Encounter for dental examination and cleaning without abnormal findings Z01.20 [facility] [id number] [place] [id number] May, Hypokalemia E87.6 ; Essential hypertension I10 ; Gastroesophageal reflux disease without esophagitis K21.9 and Right-sided thoracic back pain, unspecified chronicity M54.6 [facility] [place] [address] [address] [id number] [place] [address]91 [address]64 May, Oral candidiasis B37.0 [place] [address] [address]99- [address] May, [place] [address] 8[address]62- [address]85 May, Cracked tooth K03.81 and Retained dental root K08.3 [place] [address] 04[address]- 59[address] May, Dental examination Z01.20 [facility] [place] [address] [address] Apr, Acute right flank pain R10.9 and Acute left lower quadrant pain R10.[address] [address] Apr, Bronchitis J40 [place] [address] 7[address]84- [address]60 Mar, Dental examination Z01.20 [place] [address] [address] Mar, Dysthymic disorder F34.1 [facility] [address] [address] Mar, Gingivitis K05.10 and Torticollis M43.6 [place] [address] [id number] [place] [address] 87815- 7548 Feb, Dysthymic disorder F34.1 [facility] [address] [address] Feb, Lymph nodes enlarged R59.9 [facility] [place] [address] [id number] [place] [address] 99734 -9744 Jan, Left otitis media, unspecified chronicity, unspecified otitis media type H66.92 [place] [address] [address] [id number] [place] [address] 05618- 3991 08 Jan, 2016 Dysthymic disorder F34.1 and Generalized anxiety disorder F41.1 [place] [address] 43065- [address]281 Dec, Dental examination Z01.20 [place] [address] 00896- 1294 Dec, Dysthymic disorder F34.1 and Generalized anxiety disorder F41.1 [place] [address] [address]- 8637 Dec, Gastroesophageal reflux disease without esophagitis K21.9 and Arthritis M19.90 [place] [address] 82161- 6582 Dec, Dysthymic disorder F34.1 and Generalized anxiety disorder F41.1 [facility] [address] [address]397 Dec, Gingivitis K05.10 [place] [address] 88109- 8022 Dec, Essential hypertension I10 ; Epigastric pain R10.13 ; Mixed hyperlipidemia E78.2 ; Proptosis H05.20 and Gastroesophageal reflux disease without esophagitis K21.9 [place] [address] [address] [id number] [place] [address] 06297- 7187 Dec, [place] [address] 6[address]642 Nov, Dysthymic disorder F34.1 [facility] [address] 7[address] Nov, Epigastric pain R10.13 and Gastroesophageal reflux disease , esophagitis presence not specified K21.9 [place] [address] [address]35- 3685 Nov, Depression, unspecified depression type F32.9 [facility] [id number] [place] [address] 72813- 2431 24 Nov, 2015 Essential hypertension I10 ; Mixed hyperlipidemia E78.2 ; Proptosis H05.20 ; Gastroesophageal reflux disease without esophagitis K21.9 and Depression, unspecified depression type F32.9 [facility] [id number] [place] [address] 12827- 1572 Nov, [facility] [id number] [place] [address] 55662 -8867 21 Nov, 2015 Sore in mouth K13.79 [facility] [address] [address] 14 Nov, 2015 Left-sided chest wall pain R07.89 and Pain of right calf M79.661 [place] [address] [address] [id number] [place] [address] 60847- 7464 06 Nov, 2015 Gastroesophageal reflux disease, esophagitis presence not specified K21.9 and Environmental allergies Z91.09 [facility] [address] [id number] October, Dental examination Z01.20 IMMUNIZATIONS No Known Immunizations SOCIAL HISTORY Never Assessed REASON FOR VISIT DM ed attempt PLAN OF CARE VITAL SIGNS MEDICATIONS Unknown [...]
--- OUTSIDE RECORDS SUMMARY | 2018-06-01 09:59 | XMS REPORT ---
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 Name Role Phone EDGARDO BATES Unavailable PROBLEMS Type Condition ICD9-CM Code YIT86-MR Code Onset Dates Condition Status SNOMED Code Problem Acute gout of right ankle, 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 Active 774103357 Problem Vertigo R42 Active 630792404 Problem Type 2 diabetes mellitus without complication, without long-term current use of insulin E11.9 Active 106070932 Problem Severe episode of recurrent major depressive disorder, with psychotic features F33.3 Active 75429490 Problem History of gout Z87.39 Active 746545727 Problem Hammertoe of left foot M20.42 Active 439510160 Problem Exophthalmia H05.20 Active 96276192 Problem Systemic lupus erythematosus, unspecified SLE type, unspecified organ involvement status M32.9 Active 32470554 Problem Hammertoe of right foot M20.41 Active 303541668 Problem Gastroesophageal reflux disease without esophagitis K21.9 Active 513635619 Problem Essential hypertension I10 Active 15051758 Problem Generalized anxiety disorder F41.1 Active 91798040 Problem Arthritis M19.90 Active 1501637 Problem Mixed hyperlipidemia E78.2 Active 346524173 Problem Gingivitis K05.10 Active 98428945 Problem Dysthymic disorder F34.1 Active 78511985 Problem Acute left-sided low back pain with left-sided sciatica M54.42 Active 909198096 ALLERGIES Substance Reaction Event Type Date Status Penicillin V Potassium Unknown Drug Allergy Aug, Active ENCOUNTERS Encounter Location Date Diagnosis [facility] [address] [facility] [id number] [address] Mar, [facility] [address] [facility] [id number] [address] Jan, [facility] [address] [place] [address]67[address] Dec, Severe episode of recurrent major depressive disorder, with psychotic features F33.3 and BMI 45.0-49.9, adult Z68.42 [place] [address] [id number] [place] [address]00[address] 6394 Dec, Onychomycosis B35.1 ; Hammertoe of left foot M20.42 ; Hammertoe of right foot M20.41 and Type 2 diabetes mellitus without complication , without long-term current use of insulin E11.9 [place] [address] [address] [id number] [place] [address] 20857- 7344 13 Nov, 2017 Severe episode of recurrent major depressive disorder, with psychotic features F33.3 and BMI 45.0-49.9, adult Z68.42 [place] [address] [address] [id number] [place] [address] 53957- 9474 Nov, Medicare annual wellness visit, initial Z00.00 ; Type 2 diabetes mellitus without complication, without long-term current use of insulin E11.9 ; Generalized anxiety disorder F41.1 ; Essential hypertension I10 ; Mixed hyperlipidemia E78.2 ; Arthritis M19.90 ; Dysthymic disorder F34.1 ; Systemic lupus erythematosus, unspecified SLE type, unspecified organ involvement status M32.9 ; History of gout Z87.39 and Encounter for immunization Z23 [place] [address] [place] [address] 95368- 9441 October, [place] [address] [id number] [place] [address] 60531- 9043 October, [facility] [address] [place] [id number] Sep, Dental examination Z01.20 [place] [address] [id number] [place] [address] 28332- 0464 Sep, [place] [address] [id number] [place] [address] 94918- 5057 Aug, Dental examination Z01.20 [place] [address] [address] [id number] [place] [address] 27539- 1316 Aug, [place] [address] [address] Aug, [facility] [id number] [place] [address] 51580 -4446 14 Aug, 2017 Aphthous stomatitis K12.0 and BMI 45.0-49.9, adult Z68.42 [place] [id number] [place] [address] 40829- 2923 05 Aug, 2017 [place] [address] [address] Aug, Vertigo R42 ; Impacted cerumen of both ears H61.23 ; Abnormal RBC indices R71.8 ; Exophthalmia H05.20 ; Elevated glucose R73.09 ; Type 2 diabetes mellitus without complication, without long-term current use of insulin E11.9 and BMI 45.0-49.9, adult Z68.42 [place] [id number] [place] [address] 70792- 1875 Jul, Dizziness R42 and BMI 45.0-49.9, adult Z68.42 [facility] [id number] [place] [address] 03725 -4987 Jun, Vertigo R42 and BMI 45.0-49.9, adult Z68.42 [facility] [id number] [place] [address] [phone] May, Dental caries K02.9 [facility] [id number] [place] [address] [id number] May, Encounter for dental exam and cleaning w/o abnormal findings Z01.20 [place] [id number] [place] [address] 35665- 5509 07 Apr, 2017 Acute non-recurrent maxillary sinusitis J01.00 [place] [address] [phone] 3432 Mar, [facility] [address] [place] [address] 16093- 1903 Feb, Acute gout of right ankle, 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 [facility] [id number] [place] [address] [id number]- [phone] Feb, [facility] [id number] [place] [address] [id number] Jan, Dental examination Z01.20 [facility] [address] [id number] Jan, Encounter for dental examination and cleaning without abnormal findings Z01.20 [facility] [id number] [place] [address] [id number] Jan, Dental examination Z01.20 [facility] [id number] [place] [address] 43813- 4071 Jan, Acute non-recurrent frontal sinusitis J01.10 ; Essential hypertension I10 ; Mixed hyperlipidemia E78.2 ; Sore throat J02.9 and Gastroesophageal reflux disease without esophagitis K21.9 [facility] [address] [id number] Dec, [facility] [id number] [place] [address] 79129 -2335 Dec, Other secondary acute gout of multiple sites M10.49 and Acute upper respiratory infection, unspecified J06.9 [facility] [id number] [place] [address] 07930 -7425 Nov, Sore throat J02.9 ; Acute nasopharyngitis (common cold) J00 and Acute left-sided low back pain with left-sided sciatica M54.42 [facility] [address] [place] [address] [id number] October, Encounter for dental examination and cleaning without abnormal findings Z01.20 [facility] [id number] [place] [address] 06178 -6347 October, Acute upper respiratory infection, unspecified J06.9 and Sore throat J02.9 [facility] [id number] [place] [address] [id number] Sep, Encounter for dental examination and cleaning without abnormal findings Z01.20 [facility] [id number] [place] [address] 01184- 0238 Sep, Gastroesophageal reflux disease without esophagitis K21.9 [facility] [id number] [place] [address] 25699 -8606 Aug, Sore throat J02.9 and Acute idiopathic gout of right wrist M10.031 [facility] [address] [id number] Jul, Encounter for dental examination and cleaning without abnormal findings Z01.20 [facility] [address] 16469- 7454 Jun, [facility] [id number] [place] [address] 74365- 1645 Jun, Lower abdominal pain R10.30 [facility] [address] [id number] Jun, Encounter for dental examination and cleaning without abnormal findings Z01.20 [facility] [id number] [place] [address] 23161- 0799 May, Chronic kidney disease, unspecified stage N18.9 and Mouth ulcer K12.1 [facility] [address] 39882- 9415 May, Chronic kidney disease, unspecified stage N18.9 [facility] [address] 46654- 1956 May, Encounter for dental examination and cleaning without abnormal findings Z01.20 [facility] [id number] [place] [address] 56886- 6518 May, Encounter for dental examination and cleaning without abnormal findings Z01.20 [place] [id number] [place] [address] 17377- 2576 16 May, 2016 Hypokalemia E87.6 ; Essential hypertension I10 ; Gastroesophageal reflux disease without esophagitis K21.9 and Right-sided thoracic back pain, unspecified chronicity M54.6 [facility] [place] [address] 51422 -6651 13 May, 2016 Oral candidiasis B37.0 [place] [address] 59488- 6289 May, [address] [address]- [address] May, Cracked tooth K03.81 and Retained dental root K08.[address] 59168- [address]21 May, Dental examination Z01.20 [facility] [place] [address] 33190 [address]2777 28 Apr, 2016 Acute right flank pain R10.9 and Acute left lower quadrant pain R10.32 [place] [address] 99451- 2914 08 Apr, 2016 Bronchitis J40 [place] [address] 02652- 8497 13 Mar, 2016 Dental examination Z01.20 [place] [address] 93931- 9947 07 Mar, 2016 Dysthymic disorder F34.1 [facility] [address] [address]23 05 Mar, 2016 Gingivitis K05.10 and Torticollis M43.6 [place] [address] 46543- 3371 08 Feb, 2016 Dysthymic disorder F34.1 [facility] [place] [address] [place] [address] 07 Feb, 2016 Lymph nodes enlarged R59.9 [facility] [address] 30588 -2671 Jan, Left otitis media, unspecified chronicity, unspecified otitis media type H66.92 [place] [address] 05805- 3430 08 Jan, 2016 Dysthymic disorder F34.1 and Generalized anxiety disorder F41.1 [place] [address] 34347- 0497 Dec, Dental examination Z01.20 [place] [address] 66406- 5767 Dec, Dysthymic disorder F34.1 and Generalized anxiety disorder F41.1 [place] [address] 23388- 2729 Dec, Gastroesophageal reflux disease without esophagitis K21.9 and Arthritis M19.90 [place] [address] 91615- 0999 Dec, Dysthymic disorder F34.1 and Generalized anxiety disorder F41.1 [facility] [place] [id number] [place] [address] 78101 -5931 Dec, Gingivitis K05.10 [place] [address] 77423- 4438 Dec, Essential hypertension I10 ; Epigastric pain R10.13 ; Mixed hyperlipidemia E78.2 ; Proptosis H05.20 and Gastroesophageal reflux disease without esophagitis K21.9 [place] [address] 06948- 4588 Dec, [place] [id number] [place] [address] 71457- 2939 Nov, Dysthymic disorder F34.1 [facility] [id number] [place] [address] 63492 -0812 Nov, Epigastric pain R10.13 and Gastroesophageal reflux disease , esophagitis presence not specified K21.9 [place] [address] [id number] [place] [phone] 24 Nov, 2015 Depression, unspecified depression type F32.9 [place] [address] [place] 905036- 7179 24 Nov, 2015 Essential hypertension I10 ; Mixed hyperlipidemia E78.2 ; Proptosis H05.20 ; Gastroesophageal reflux disease without esophagitis K21.9 and Depression, unspecified depression type F32.9 [place] [address] 69503- 5190 Nov, [facility] [address] [address]98 Nov, Sore in mouth K13.79 [facility] [place] [address] 64942 -3135 14 Nov, 2015 Left-sided chest wall pain R07.89 and Pain of right calf M79.661 [place] [address] 50034- 9094 06 Nov, 2015 Gastroesophageal reflux disease, esophagitis presence not specified K21.9 and Environmental allergies Z91.09 [facility] [address] [id number] October, Dental examination Z01.20 IMMUNIZATIONS No Known Immunizations SOCIAL HISTORY Never Assessed REASON FOR VISIT Dizziness f/u- states he is still dizzy, feels like he is spinning- Yaya Sim RN, PHQ2, AUDIT C PLAN OF CARE Activity Details Follow Up 3 Months Reason: VITAL SIGNS Height 70 in 2017-08-25 Weight 319 lbs 2017-08-25 Temperature 98.0 degrees Fahrenheit 2017-08-25 Heart Rate 78 bpm 2017-08-25 Respiratory Rate 16 2017-08-25 BMI 45.77 kg/m2 2017-08-25 Blood pressure systolic 138 mmHg 2017-08-25 Blood pressure diastolic 88 mmHg 2017-08-25 MEDICATIONS Medication Instructions Dosage Frequency Start Date End Date Duration Status Metformin HCl 500 mg Orally Twice a day 1 tablet with meals 12h Aug, 30 day(s) Active Eye Health Formula 180-15-5 MG Active Lisinopril 10 mg Orally Once a day 1 tablet 24h 30 days Active Uloric 80 MG Orally Once a day 1 tablet 24h Active Aripiprazole 5 MG Orally Once a day 1 tablet 24h Active Protonix 40 mg Orally Once a day 1 tablet 24h 30 Active Mens Multi Vitamin & Mineral Active Pravastatin Sodium 10 mg Orally Once a day 1 tablet 24h 30 days Active RESULTS Name Result Date Reference Range A1C (IN HOUSE) A1C IN HOUSE 6.7 4.3 - 5.6 % Previous A1c NA Lot [id number] Exp date 04/2019 TSH 2017-08-25 TSH 2.82 0.40-4.50 IRON, TIBC, FERRITIN PANEL 2017-08-25 IRON, TOTAL 52 50-180 IRON BINDING CAPACITY 283 250-425 % SATURATION 18 15-60 FERRITIN 161 20-380 PROCEDURES Procedure Date Ordered Result Body Site EAR LAVAGE 2017-08-25 N/A LAB [facility] August 25, 2017 [facility] VISIT ESTABLISHED PATIENT August 25, 2017 GLYCATED HEMOGLOBIN TEST August 25, 2017 VENIPUNCT, ROUTINE* August 25, 2017 INSTRUCTIONS MEDICATIONS ADMINISTERED No Known Medications [...]
--- OUTSIDE RECORDS SUMMARY | 2018-06-01 10:01 | XMS REPORT ---
Author Author JOHN LORENZO [facility] Address [address] [place] [address] Care Team Providers Care Forestry And Wildlife Manager Name Role Phone ARMANDO LORENZOISTIN Unavailable PROBLEMS Type Condition ICD9-CM Code LVG33-EQ Code Onset Dates Condition Status SNOMED Code Problem Gingivitis K05.10 Active 44159265 Problem Acute gout of right ankle, 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 Active 707042301 Problem Acute left-sided low back pain with left-sided sciatica M54.42 Active 357192285 Problem Severe episode of recurrent major depressive disorder, with psychotic features F33.3 Active 49782922 Problem History of gout Z87.39 Active 670721373 Problem Type 2 diabetes mellitus without complication, without long-term current use of insulin E11.9 Active 025889596 Problem Vertigo R42 Active 872597142 Problem Systemic lupus erythematosus, unspecified SLE type, unspecified organ involvement status M32.9 Active 88352330 Problem Exophthalmia H05.20 Active 83308211 Problem Mixed hyperlipidemia E78.2 Active 331522630 Problem Dysthymic disorder F34.1 Active 78839774 Problem Gastroesophageal reflux disease without esophagitis K21.9 Active 849134972 Problem Generalized anxiety disorder F41.1 Active 82228781 Problem Essential hypertension I10 Active 46015903 Problem Arthritis M19.90 Active 4951964 ALLERGIES Substance Reaction Event Type Date Status Penicillin V Potassium Unknown Drug Allergy Jun, Active ENCOUNTERS Encounter Location Date Diagnosis [facility] [address] [facility] [id number] [address] Dec, [facility] [address] [facility] [id number], [place] [address] Dec, [facility] [address] [facility] [id number], [place] [address] Nov, Severe episode of recurrent major depressive disorder, with psychotic features F33.3 and BMI 45.0-49.9, adult Z68.42 [facility] [address] [place] [id number] [place] [address] 08 Nov, 2017 Medicare annual wellness visit, [...] gout Z87.39 and Encounter for immunization Z23 [facility] [address] [address] October, [facility] [address] [address] October, [facility] [address] [id number] Sep, Dental examination Z01.20 [place] [address] [address] Sep, [facility] [address] [address] Aug, Dental examination Z01.20 [facility] [id number] [place] [address] Aug, [facility] [address] [address] Aug, [facility] [id number] [place] [phone] 14 Aug, 2017 Aphthous stomatitis K12.0 and BMI 45.0-49.9, adult Z68.42 [facility] [id number] [place] [address] 05 Aug, 2017 [facility] [address] [address] Aug, Vertigo R42 ; Impacted cerumen of both ears H61.23 ; Abnormal RBC indices R71.8 ; Exophthalmia H05.20 ; Elevated glucose R73.09 ; Type 2 diabetes mellitus without complication, without long-term current use of insulin E11.9 and BMI 45.0-49.9, adult Z68.42 [facility] [id number] [place] [address] Jul, Dizziness R42 and BMI 45.0-49.9, adult Z68.42 [facility] [address] [address] Jun, Vertigo R42 and BMI 45.0-49.9, adult Z68.42 [facility] [address] [id number] May, Dental caries K02.9 [facility] [address] [id number] May, Encounter for dental exam and cleaning w/o abnormal findings Z01.20 [facility] [address] [address] Apr, Acute non-recurrent maxillary sinusitis J01.00 [facility] [address] [id number] [place] [address] 09 Mar, 2017 [facility] [address] [address] 11 Feb, 2017 Acute gout of right ankle, 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 [facility] [id number] [place] [address] 76090- [address]67 Feb, [facility] [address] [id number] Jan, Dental examination Z01.20 [facility] [address] [place] [id number] [place] [address] [id number] Jan, Encounter for dental examination and cleaning without abnormal findings Z01.20 [facility] [id number] [place] [id number] Jan, Dental examination Z01.20 [facility] [address] [place] [id number] Jan, Acute non-recurrent frontal sinusitis J01.10 ; Essential hypertension I10 ; Mixed hyperlipidemia E78.2 ; Sore throat J02.9 and Gastroesophageal reflux disease without esophagitis K21.9 [facility] [address] [id number] Dec, [facility] [address] [address] Dec, Other secondary acute gout of multiple sites M10.49 and Acute upper respiratory infection, unspecified J06.9 [facility] [address] [address] Nov, Sore throat J02.9 ; Acute nasopharyngitis (common cold) J00 and Acute left-sided low back pain with left-sided sciatica M54.42 [facility] [id number] [place] [id number] October, Encounter for dental examination and cleaning without abnormal findings Z01.20 [facility] [id number] [place] [address] [phone] October, Acute upper respiratory infection, unspecified J06.9 and Sore throat J02.9 [facility] [address] [place] [address] [id number] [place] [address] [id number] Sep, Encounter for dental examination and cleaning without abnormal findings Z01.20 [facility] [id number] [place] [address]74[address] Sep, Gastroesophageal reflux disease without esophagitis K21.9 [facility] [id number] [place] [address] [phone] [phone] Aug, Sore throat J02.9 and Acute idiopathic gout of right wrist M10.031 [facility] [address] [place] [address] [id number] Jul, Encounter for dental examination and cleaning without abnormal findings Z01.20 [facility] [id number] [place] [address] 9[address]60- [address] Jun, [facility] [id number] [place] [address] 10174- 8380 Jun, Lower abdominal pain R10.30 [facility] [address] [address] [id number] [place] [id number] Jun, Encounter for dental examination and cleaning without abnormal findings Z01.20 [facility] [address] [address] May, Chronic kidney disease, unspecified stage N18.9 and Mouth ulcer K12.1 [place] [address] [place] [id number] [place] [address] 00932- 5256 May, Chronic kidney disease, unspecified stage N18.9 [facility] [address] [place] [id number] [place] [address] 1193 May, Encounter for dental examination and cleaning without abnormal findings Z01.20 [place] [id number] [place] [address] 6[address]13[address] 8940 May, Encounter for dental examination and cleaning without abnormal findings Z01.20 [facility] [address] [id number] [place] [address] 49950- 1839 May, Hypokalemia E87.6 ; Essential hypertension I10 ; Gastroesophageal reflux disease without esophagitis K21.9 and Right-sided thoracic back pain, unspecified chronicity M54.6 [facility] [id number] [place] [address] May, Oral candidiasis B37.0 [facility] [id number] [place] [address] 95455- 9479 May, [facility] [id number] [place] [address] 26095- 57[address] May, Cracked tooth K03.81 and Retained dental root K08.3 [facility] [id number] [place] [address] 94251- 8940 May, Dental examination Z01.20 [facility] [place] [id number] [place] [address] Apr, Acute right flank pain R10.9 and Acute left lower quadrant pain R10.32 [facility] [address] [address] 08 Apr, 2016 Bronchitis J40 [place] [address] [address] 13 Mar, 2016 Dental examination Z01.20 [place] [id number] [place] [address] 47574- 4952 Mar, Dysthymic disorder F34.1 [facility] [place] [id number] [place] [address] 29394 -[address]60 Mar, Gingivitis K05.10 and Torticollis M43.6 [facility] [id number] [place] [address] 23760- 8627 08 Feb, 2016 Dysthymic disorder F34.1 [facility] [address] [place] [id number] [place] [address] 57960 -5878 Feb, Lymph nodes enlarged R59.9 [facility] [address] [place] [id number] [place] [address] 77042 -4556 Jan, Left otitis media, unspecified chronicity, unspecified otitis media type H66.92 [place] [id number] [place] [address] 11492- 0766 Jan, Dysthymic disorder F34.1 and Generalized anxiety disorder F41.1 [place] [id number] [place] [address] 86908- 2768 Dec, Dental examination Z01.20 [facility] [place] [id number] [place] [address] 77559- 8232 Dec, Dysthymic disorder F34.1 and Generalized anxiety disorder F41.1 [place] [address] [address]- [address] Dec, Gastroesophageal reflux disease without esophagitis K21.9 and Arthritis M19.90 [place] [address] [address]- [address] Dec, Dysthymic disorder F34.1 and Generalized anxiety disorder F41.1 [facility] [address] [address] Dec, Gingivitis K05.10 [place] [address] [address] Dec, Essential hypertension I10 ; Epigastric pain R10.13 ; Mixed hyperlipidemia E78.2 ; Proptosis H05.20 and Gastroesophageal reflux disease without esophagitis K21.9 [place] [address] [address] Dec, [place] [address] [address] Nov, Dysthymic disorder F34.1 [facility] [address] [address] Nov, Epigastric pain R10.13 and Gastroesophageal reflux disease , esophagitis presence not specified K21.9 [place] [id number] [place] [address] 16233- 3711 Nov, Depression, unspecified depression type F32.9 [place] [address] 133[address]- [address]39 Nov, Essential hypertension I10 ; Mixed hyperlipidemia E78.2 ; Proptosis H05.20 ; Gastroesophageal reflux disease without esophagitis K21.9 and Depression, unspecified depression type F32.9 [place] [address] [place] [address]- [address] 22 Nov, 2015 [facility] [address] [address] 21 Nov, 2015 Sore in mouth K13.79 [facility] [address] [place] [address] 10774 -2968 14 Nov, 2015 Left-sided chest wall pain R07.89 and Pain of right calf M79.661 [facility] [address] [place] [address] 25498- 4976 06 Nov, 2015 Gastroesophageal reflux disease, esophagitis presence not specified K21.9 and Environmental allergies Z91.09 [facility] [address] [place] [address] [id number] October, Dental examination Z01.20 IMMUNIZATIONS No Known Immunizations SOCIAL HISTORY Never Assessed REASON FOR VISIT Dizziness--tcuppettRN, Dizziness x 3 days. Occurs mainly when laying down. Denies headache, blurred vision PLAN OF CARE Activity Details Follow Up prn Reason: VITAL SIGNS Height 70 in 2017-07-14 Weight 321.8 lbs 2017-07-14 Temperature 97.8 degrees Fahrenheit 2017-07-14 Heart Rate 90 bpm 2017-07-14 Respiratory Rate 20 2017-07-14 BMI 46.17 kg/m2 2017-07-14 Blood pressure systolic 126 mmHg 2017-07-14 Blood pressure diastolic 84 mmHg 2017-07-14 MEDICATIONS Medication Instructions Dosage Frequency Start Date End Date Duration Status Meclizine HCl 25 MG Orally every 8 hours 1 tablet as needed 8h Jun, 7 days Active Eye Health Formula 180-15-5 MG Active Lisinopril 10 mg Orally Once a day 1 tablet 24h 30 days Active Mens Multi Vitamin & Mineral Active Aripiprazole 5 MG Orally Once a day 1 tablet 24h Active Pravastatin Sodium 10 mg Orally Once a day 1 tablet 24h 30 days Active Protonix 40 mg Orally Once a day 1 tablet 24h 30 Active Uloric 80 MG Orally Once a day 1 tablet 24h Active Potassium Chloride Mee ER 10 MEQ Orally Once a day 2 tablets with food 24h Jul, 30 days Active RESULTS No Results PROCEDURES Procedure Date Ordered Result Body Site [facility] VISIT ESTABLISHED PATIENT Jul 14, 2017 INSTRUCTIONS MEDICATIONS ADMINISTERED No Known Medications [...]
--- OUTSIDE RECORDS SUMMARY | 2018-06-01 10:01 | XMS REPORT ---
Author Author ADINA ZAMBRANO [facility] Address [address] [place] [address] Phone Unavailable Care Team Providers Care Target Network Analyst Name Role Phone ADINA ZAMBRANO Unavailable Unavailable PROBLEMS Type Condition ICD9-CM Code [id number] Code Onset Dates Condition Status SNOMED Code Problem Arthritis M19.90 Active 9121057 Problem Acute left-sided low back pain with left-sided sciatica M54.42 Active 100863588 Problem Gingivitis K05.10 Active 89363164 Problem History of gout Z87.39 Active 237841547 Problem Systemic lupus erythematosus, unspecified SLE type, unspecified organ involvement status M32.9 Active 38591692 Problem Vertigo R42 Active 354244075 Problem Acute gout of right ankle, 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 Active 264814716 Problem Exophthalmia H05.20 Active 01442829 Problem Type 2 diabetes mellitus without complication, without long-term current use of insulin E11.9 Active 844282509 Problem Essential hypertension I10 Active 53264152 Problem Mixed hyperlipidemia E78.2 Active 582383648 Problem Dysthymic disorder F34.1 Active 17514937 Problem Gastroesophageal reflux disease without esophagitis K21.9 Active 601120206 Problem Generalized anxiety disorder F41.1 Active 43498982 ALLERGIES Substance Reaction Event Type Date Status Penicillin V Potassium Unknown Drug Allergy May, Active ENCOUNTERS Encounter Location Date Diagnosis [facility] [address] [facility] [id number], [place] [address] Dec, [facility] [address] [facility] [id number], [place] [address] Nov, [place] [address] [id number], [place] [address] Nov, Medicare annual wellness visit, initial Z00.00 ; Type 2 diabetes mellitus without complication, without long-term current use of insulin E11.9 ; Generalized anxiety disorder F41.1 ; Essential hypertension I10 ; Mixed hyperlipidemia E78.2 ; Arthritis M19.90 ; Dysthymic disorder F34.1 ; Systemic lupus erythematosus, unspecified SLE type, unspecified organ involvement status M32.9 ; History of gout Z87.39 and Encounter for immunization Z23 [facility] [address] [place] [id number] [place] [address] October, [facility] [address] [address] October, [facility] [address] [id number] Sep, Dental examination Z01.20 [place] [address] [address] Sep, [place] [address] [address] Aug, Dental examination Z01.20 [facility] [address] [place] [id number] [place] [address] Aug, [place] [address] [address] Aug, [facility] [id number] [place] [address] Aug, Aphthous stomatitis K12.0 and BMI 45.0-49.9, adult Z68.42 [facility] [address] [place] [id number] [place] [address] Aug, [facility] [address] [place] [id number] [place] [address] Aug, Vertigo R42 ; Impacted cerumen of both ears H61.23 ; Abnormal RBC indices R71.8 ; Exophthalmia H05.20 ; Elevated glucose R73.09 ; Type 2 diabetes mellitus without complication, without long-term current use of insulin E11.9 and BMI 45.0-49.9, adult Z68.42 [facility] [id number] [place] [address]2784[address] 39[address] Jul, Dizziness R42 and BMI 45.0-49.9, adult Z68.42 [facility] [address] [place] [address] [phone] Jun, Vertigo R42 and BMI 45.0-49.9, adult Z68.42 [facility] [address] [id number] May, Dental caries K02.9 [facility] [address] [id number] May, Encounter for dental exam and cleaning w/o abnormal findings Z01.20 [facility] [address] [address] 07 Apr, 2017 Acute non-recurrent maxillary sinusitis J01.00 [place] [address] [address] 09 Mar, 2017 [facility] [address] [address] 11 Feb, 2017 Acute gout of right ankle, 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 [place] [address] [address] 11 Feb, 2017 [facility] [address] [id number] Jan, Dental examination Z01.20 [facility] [address] [id number] [place] [id number] Jan, Encounter for dental examination and cleaning without abnormal findings Z01.20 [facility] [address] [id number] Jan, Dental examination Z01.20 [facility] [address] [address] Jan, Acute non-recurrent frontal sinusitis J01.10 ; Essential hypertension I10 ; Mixed hyperlipidemia E78.2 ; Sore throat J02.9 and Gastroesophageal reflux disease without esophagitis K21.9 [facility] [address] [place] [id number] [place] [id number] Dec, [facility] [id number] [place] [address] 6[address]19 [address] Dec, Other secondary acute gout of multiple sites M10.49 and Acute upper respiratory infection, unspecified J06.9 [facility] [address] [address] Nov, Sore throat J02.9 ; Acute nasopharyngitis (common cold) J00 and Acute left-sided low back pain with left-sided sciatica M54.42 [facility] [address] [id number] October, Encounter for dental examination and cleaning without abnormal findings Z01.20 [facility] [id number] [place] [address] October, Acute upper respiratory infection, unspecified J06.9 and Sore throat J02.9 [facility] [address] [place] [address] [id number] [place] [id number] Sep, Encounter for dental examination and cleaning without abnormal findings Z01.20 [facility] [address] [address] [id number] [place] [address] 84134- [address] Sep, Gastroesophageal reflux disease without esophagitis K21.9 [facility] [address] [address] Aug, Sore throat J02.9 and Acute idiopathic gout of right wrist M10.031 [facility] [address] [place] [address] [id number] [place] [id number] Jul, Encounter for dental examination and cleaning without abnormal findings Z01.20 [facility] [address] [address] Jun, [facility] [address] [address] Jun, Lower abdominal pain R10.30 [facility] [address] [place] [id number] 05 Jun, 2016 Encounter for dental examination and cleaning without abnormal findings Z01.20 [facility] [address] [place] [id number] [place] [address] 71241[address] May, Chronic kidney disease, unspecified stage N18.9 and Mouth ulcer K12.1 [place] [address] [address] May, Chronic kidney disease, unspecified stage N18.9 [place] [address] 618987- [address] May, Encounter for dental examination and cleaning without abnormal findings Z01.20 [place] [address] [address] May, Encounter for dental examination and cleaning without abnormal findings Z01.20 [place] [address] [address] 16 May, 2016 Hypokalemia E87.6 ; Essential hypertension I10 ; Gastroesophageal reflux disease without esophagitis K21.9 and Right-sided thoracic back pain, unspecified chronicity M54.6 [facility] [address] [place] [id number] [place] [address] May, Oral candidiasis B37.0 [place] [address] [address] [id number] [place] [address] 97943- [address] May, [place] [address] [address] [id number] [place] [address] 34234- 1264 May, Cracked tooth K03.81 and Retained dental root K08.3 [place] [address] [address] [id number] [place] [address] 87564- 78[address] May, Dental examination Z01.20 [facility] [address] [place] [id number] [place] [address] Apr, Acute right flank pain R10.9 and Acute left lower quadrant pain R10.32 [place] [address] [place] [id number] [place] [address] 25686- [address] 08 Apr, 2016 Bronchitis J40 [place] [address] [place] [id number] [place] [address] 2[address]- [address] 13 Mar, 2016 Dental examination Z01.20 [place] [address] [address] 07 Mar, 2016 Dysthymic disorder F34.1 [facility] [address] [address] [id number] [place] [address] 32771 -[address] 05 Mar, 2016 Gingivitis K05.10 and Torticollis M43.6 [place] [address] [address] [id number] [place] [address] 89685- 2089 08 Feb, 2016 Dysthymic disorder F34.1 [facility] [address] [place] [address] [id number] [place] [address] 50168 [address] 07 Feb, 2016 Lymph nodes enlarged R59.9 [facility] [place] [id number] [place] [address]46 Jan, Left otitis media, unspecified chronicity, unspecified otitis media type H66.92 [place] [address] [id number] [place] [address] 28604- 1666 08 Jan, 2016 Dysthymic disorder F34.1 and Generalized anxiety disorder F41.1 [place] [address] [place] [id number] [place] [address] 79110- 1923 Dec, Dental examination Z01.20 [place] [address] [address] [id number] [place] [address] 75411- 8027 Dec, Dysthymic disorder F34.1 and Generalized anxiety disorder F41.1 [place] [address] [id number] [place] [address] 81065- 8573 18 Dec, 2015 Gastroesophageal reflux disease without esophagitis K21.9 and Arthritis M19.90 [place] [address] [place] [address] [place] [address] Dec, Dysthymic disorder F34.1 and Generalized anxiety disorder F41.1 [facility] [place] [address] [address] Dec, Gingivitis K05.10 [facility] [address] [address] Dec, Essential hypertension I10 ; Epigastric pain R10.13 ; Mixed hyperlipidemia E78.2 ; Proptosis H05.20 and Gastroesophageal reflux disease without esophagitis K21.9 [place] [address] [address] Dec, [place] [address] [address] Nov, Dysthymic disorder F34.1 [facility] [place] [address] [address] Nov, Epigastric pain R10.13 and Gastroesophageal reflux disease , esophagitis presence not specified K21.9 [place] [address] [address] Nov, Depression, unspecified depression type F32.9 [place] [address] [address] Nov, Essential hypertension I10 ; Mixed hyperlipidemia E78.2 ; Proptosis H05.20 ; Gastroesophageal reflux disease without esophagitis K21.9 and Depression, unspecified depression type F32.9 [place] [address] [address] Nov, [facility] [place] [address] [address] Nov, Sore in mouth K13.79 [facility] [place] [address] [address] 14 Nov, 2015 Left-sided chest wall pain R07.89 and Pain of right calf M79.661 [facility] [address] [facility] [id number] [address] Nov, Gastroesophageal reflux disease, esophagitis presence not specified K21.9 and Environmental allergies Z91.09 [facility] [address] [id number] [place] [id number] October, Dental examination Z01.20 IMMUNIZATIONS No Known Immunizations SOCIAL HISTORY Never Assessed REASON FOR VISIT PERIO MAINT. AND RESTORATIVE PLAN OF CARE Activity Details Follow Up prn ADINA WILL ARRANGE FOR APPT Reason:3 MOS RECALL VITAL SIGNS MEDICATIONS Medication Instructions Dosage Frequency Start Date End Date Duration Status Potassium Chloride Mee ER 10 MEQ Orally Once a day 2 tablets with food 24h 7 Jul, 2017 30 days Active Pravastatin Sodium 10 mg Orally Once a day 1 tablet 24h 30 days Active Protonix 40 mg Orally Once a day 1 tablet 24h 30 Active Eye Health Formula 180-15-5 MG Active PredniSONE 10 mg Orally Once a day for final day 3 tablet daily X 3 days, 2 tabs daily X 2 days. 1 Feb, Active Uloric 80 MG Orally Once a day 1 tablet 24h Active Mens Multi Vitamin & Mineral Active Aripiprazole 5 MG Orally Once a day 1 tablet 24h Active Lisinopril 10 mg Orally Once a day 1 tablet 24h 30 days Active RESULTS No Results PROCEDURES Procedure Date Ordered Result Body Site INTRAORL-PERIAPICAL 1 FILM 02262 Jun 09, 2017 BITEWINGS - TWO FILMS Jun 09, 2017 Periodontal maint procedures Jun 09, 2017 INSTRUCTIONS MEDICATIONS ADMINISTERED No Known [...]
[2018-06-01] MEDS ORDERED: NS IV 1000 ML 1,000 ML IV ONE (10:02)
--- OUTSIDE RECORDS SUMMARY | 2018-06-01 10:03 | XMS REPORT ---
Author Author GEORGES MOON Organization [facility] Address [address] [place] [address] Care Team Providers Care Real Estate Intern Name Role Phone GEORGES MOON Unavailable PROBLEMS Type Condition ICD9-CM Code YZM43-PO Code Onset Dates Condition Status SNOMED Code Problem Gingivitis K05.10 Active 95377253 Problem Acute gout of right ankle, 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 Active 514804971 Problem Acute left-sided low back pain with left-sided sciatica M54.42 Active 015917316 Problem Severe episode of recurrent major depressive disorder, with psychotic features F33.3 Active 33231735 Problem History of gout Z87.39 Active 805088564 Problem Type 2 diabetes mellitus without complication, without long-term current use of insulin E11.9 Active 363300481 Problem Vertigo R42 Active 376128646 Problem Systemic lupus erythematosus, unspecified SLE type, unspecified organ involvement status M32.9 Active 47052936 Problem Exophthalmia H05.20 Active 88899553 Problem Mixed hyperlipidemia E78.2 Active 706265405 Problem Dysthymic disorder F34.1 Active 83382970 Problem Gastroesophageal reflux disease without esophagitis K21.9 Active 481103046 Problem Generalized anxiety disorder F41.1 Active 49168575 Problem Essential hypertension I10 Active 88101895 Problem Arthritis M19.90 Active 6813533 ALLERGIES No Information ENCOUNTERS Encounter Location Date Diagnosis [facility] [address] [facility] [id number], [place] [address] Dec, [facility] [address] [facility] [id number], [place] [address] Dec, [facility] [address] [facility] [id number], [place] [address] Nov, Severe episode of recurrent major depressive disorder, with psychotic features F33.3 and BMI 45.0-49.9, adult Z68.42 [facility] [address] [place] [id number] [place] [address] 08 Nov, 2017 Medicare annual wellness visit, [...] gout Z87.39 and Encounter for immunization Z23 [place] [address] [address] October, [place] [address] [address] October, [facility] [address] [id number] Sep, Dental examination Z01.20 [place] [address] [address] Sep, [place] [address] [address] Aug, Dental examination Z01.20 [place] [address] [address] Aug, [facility] [address] [address] Aug, [facility] [address] [place] [id number] [place] [address] 14 Aug, 2017 Aphthous stomatitis K12.0 and BMI 45.0-49.9, adult Z68.42 [place] [address] [address] 05 Aug, 2017 [facility] [address] [address] Aug, Vertigo R42 ; Impacted cerumen of both ears H61.23 ; Abnormal RBC indices R71.8 ; Exophthalmia H05.20 ; Elevated glucose R73.09 ; Type 2 diabetes mellitus without complication, without long-term current use of insulin E11.9 and BMI 45.0-49.9, adult Z68.42 [facility] [address] [address] Jul, Dizziness R42 and BMI 45.0-49.9, adult Z68.42 [facility] [address] [address] Jun, Vertigo R42 and BMI 45.0-49.9, adult Z68.42 [facility] [address] [id number] May, Dental caries K02.9 [facility] [address] [id number] May, Encounter for dental exam and cleaning w/o abnormal findings Z01.20 [place] [address] [address] 07 Apr, 2017 Acute non-recurrent maxillary sinusitis J01.00 [place] [address] [address] 09 Mar, 2017 [place] [address] [address] Feb, Acute gout of right ankle, 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 [facility] [address] [address] Feb, [facility] [address] [id number] Jan, Dental examination Z01.20 [facility] [address] [id number] Jan, Encounter for dental examination and cleaning without abnormal findings Z01.20 [facility] [address] [id number] Jan, Dental examination Z01.20 [facility] [address] [address] Jan, Acute non-recurrent frontal sinusitis J01.10 ; Essential hypertension I10 ; Mixed hyperlipidemia E78.2 ; Sore throat J02.9 and Gastroesophageal reflux disease without esophagitis K21.9 [facility] [address] [id number] Dec, [facility] [address] [address] Dec, Other secondary acute gout of multiple sites M10.49 and Acute upper respiratory infection, unspecified J06.9 [facility] [address] [address] Nov, Sore throat J02.9 ; Acute nasopharyngitis (common cold) J00 and Acute left-sided low back pain with left-sided sciatica M54.42 [facility] [address] [id number] [place] [id number] October, Encounter for dental examination and cleaning without abnormal findings Z01.20 [facility] [address] [place] [id number] [place] [address] October, Acute upper respiratory infection, unspecified J06.9 and Sore throat J02.9 [facility] [address] [id number] Sep, Encounter for dental examination and cleaning without abnormal findings Z01.20 [facility] [address] [place] [id number] [place] [address] Sep, Gastroesophageal reflux disease without esophagitis K21.9 [facility] [address] [id number] Aug, Sore throat J02.9 and Acute idiopathic gout of right wrist M10.031 [facility] [address] [id number] Jul, Encounter for dental examination and cleaning without abnormal findings Z01.20 [facility] [address] [place] [id number] [place] [address] Jun, [facility] [address] [place] [id number] [place] [address] Jun, Lower abdominal pain R10.30 [facility] [address] [id number] Jun, Encounter for dental examination and cleaning without abnormal findings Z01.20 [place] [address] [place] [id number] [place] [address] May, Chronic kidney disease, unspecified stage N18.9 and Mouth ulcer K12.1 [place] [address] [address] May, Chronic kidney disease, unspecified stage N18.9 [place] [address] [place] [id number] [place] [address] May, Encounter for dental examination and cleaning without abnormal findings Z01.20 [place] [address] [place] [id number] [place] [address] May, Encounter for dental examination and cleaning without abnormal findings Z01.20 [facility] [address] [place] [id number] [place] [address] May, Hypokalemia E87.6 ; Essential hypertension I10 ; Gastroesophageal reflux disease without esophagitis K21.9 and Right-sided thoracic back pain, unspecified chronicity M54.6 [facility] [address] [place] [id number] [place] [address] May, Oral candidiasis B37.0 [facility] [address] [address] May, [facility] [address] [place] [id number] [place] [address] May, Cracked tooth K03.81 and Retained dental root K08.3 [place] [address] [place] [id number] [place] [address] May, Dental examination Z01.20 [facility] [place] [address] [place] [id number] [place] [address] 28 Apr, 2016 Acute right flank pain R10.9 and Acute left lower quadrant pain R10.32 [place] [address] [address] 08 Apr, 2016 Bronchitis J40 [place] [address] [address] 13 Mar, 2016 Dental examination Z01.20 [place] [address] [address] 07 Mar, 2016 Dysthymic disorder F34.1 [facility] [place] [address] [address] 05 Mar, 2016 Gingivitis K05.10 and Torticollis M43.6 [place] [address] [place] [id number] [place] [address] 08 Feb, 2016 Dysthymic disorder F34.1 [facility] [place] [address] [place] [id number] [place] [address] 07 Feb, 2016 Lymph nodes enlarged R59.9 [facility] [place] [address] [place] [id number] [place] [address] Jan, Left otitis media, unspecified chronicity, unspecified otitis media type H66.92 [place] [address] [place] [id number] [place] [address] 08 Jan, 2016 Dysthymic disorder F34.1 and Generalized anxiety disorder F41.1 [place] [address] [place] [id number] [place] [address] Dec, Dental examination Z01.20 [place] [address] [address] Dec, Dysthymic disorder F34.1 and Generalized anxiety disorder F41.1 [place] [address] [place] [id number] [place] [address]- 3656 Dec, Gastroesophageal reflux disease without esophagitis K21.9 and Arthritis M19.90 [place] [address] [place] [id number] [place] [address]- [address] Dec, Dysthymic disorder F34.1 and Generalized anxiety disorder F41.1 [facility] [address] [place] [id number] [place] [address] Dec, Gingivitis K05.10 [place] [address] [place] [id number] [place] [address] 8[address] Dec, Essential hypertension I10 ; Epigastric pain R10.13 ; Mixed hyperlipidemia E78.2 ; Proptosis H05.20 and Gastroesophageal reflux disease without esophagitis K21.9 [place] [address] [place] [id number] [place] [address] Dec, [place] [address] [place] [id number] [place] [address] Nov, Dysthymic disorder F34.1 [facility] [address] [place] [id number] [place] [address] Nov, Epigastric pain R10.13 and Gastroesophageal reflux disease , esophagitis presence not specified K21.9 [place] [address] [place] [id number] [place] [address] Nov, Depression, unspecified depression type F32.9 [place] [address] [place] [id number] [place] [address] 89[address] Nov, Essential hypertension I10 ; Mixed hyperlipidemia E78.2 ; Proptosis H05.20 ; Gastroesophageal reflux disease without esophagitis K21.9 and Depression, unspecified depression type F32.9 [place] [address] [place] [id number] [place] [address]- 4376 Nov, [facility] [address] [id number] [address] Nov, Sore in mouth K13.79 [facility] [address] [address] 14 Nov, 2015 Left-sided chest wall pain R07.89 and Pain of right calf M79.661 [facility] [address] [address] 06 Nov, 2015 Gastroesophageal reflux disease, esophagitis presence not specified K21.9 and Environmental allergies Z91.09 [facility] [id number] [place] [id number] October, Dental examination Z01.20 IMMUNIZATIONS No Known Immunizations SOCIAL HISTORY Never Assessed REASON FOR VISIT PLAN OF CARE Activity Details Follow Up as directed Reason:re-evaluate #14 & PANO VITAL SIGNS MEDICATIONS Medication Instructions Dosage Frequency Start Date End Date Duration Status [place] 5-325 MG Orally every 6 hrs 1 tablet as needed 6h May, May, 3 days Active RESULTS No Results PROCEDURES Procedure Date Ordered Result Body Site EXTRAC ERUPTED TOOTH/EXPOSED ROOT Jun 09, 2017 EXTRAC ERUPTED TOOTH/EXPOSED ROOT Jun 09, 2017 Billing Notes on claim Jun 09, 2017 INSTRUCTIONS MEDICATIONS ADMINISTERED No [...]
--- OUTSIDE RECORDS SUMMARY | 2018-06-01 10:05 | XMS REPORT | Continuity of Care Document ---
Author Author [facility] Organization [facility] Address Unknown Phone Unavailable Allergies Active Description Code Type Severity Reaction Onset Reported/Identified Relationship to Patient Clinical Status Yes Penicillins [id number] Drug Allergy Unknown N/A 01/31/2016 Medications There is no data. 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 CHRONIC GOUT, UNSPECIFIED, WITH TOPHUS ( 12/17/2015 WHITNEY CUNNINGHAM MD Ot K57.30 DVRTCLOS OF [...] M79.661 PAIN IN RIGHT LOWER LEG 01/04/2016 EPTE LANDRY Ot K21.9 GASTRO-ESOPHAGEAL REFLUX DISEASE WITHOUT 01/04/2016 PETE LANDRY Ot R07.89 OTHER CHEST PAIN 01/04/2016 PETE LANDRY Ot R11.0 NAUSEA 01/04/2016 TELLO EDGAR MATERIALS MANAGEMENT MANAGER Ot M79.661 PAIN IN RIGHT LOWER [...] K29.80 DUODENITIS WITHOUT BLEEDING 05/23/2016 LILLY CORTES MACHINE STAMPER Ot N28.9 DISORDER OF KIDNEY AND URETER, UNSPECIFI 05/23/2016 LILLY CORTES MACHINE STAMPER Ot R10.32 LEFT LOWER QUADRANT PAIN 06/12/2016 LILLY CORTES MACHINE STAMPER Ot N28.9 DISORDER OF KIDNEY AND URETER, UNSPECIFI 06/12/2016 LILLY CORTES MACHINE STAMPER Ot R10.32 LEFT LOWER QUADRANT PAIN 10/08/2016 NAZIA VARGAS DC, Ot M54.13 RADICULOPATHY, CERVICOTHORACIC REGION 10/08/2016 NAZIA VARGAS DC, Ot M79.1 MYALGIA 10/08/2016 VARGAS DC, NAZIA [...] J Ot M54.13 RADICULOPATHY, CERVICOTHORACIC REGION 01/19/2017 SAM BECKFORD, NAZIA Brittaney Ot M79.1 MYALGIA 01/19/2017 VARGAS ANALY, NAZIA [...] 01/20/2017 RODRI DAVE MD, Ot Z79.899 OTHER [facility] (CURRENT) DRUG THERAPY 01/20/2017 RODRI DAVE MD, [...] 01/20/2017 RODRI DAVE MD, Ot Z79.899 OTHER [facility] (CURRENT) DRUG THERAPY 01/20/2017 RODRI DAVE MD, Ot Z87.891 PERSONAL HISTORY OF NICOTINE DEPENDENCE 11/21/2017 TELLO EDGAR Ot M79.661 PAIN IN RIGHT LOWER LEG 11/21/2017 LILLY CORTES APRN Ot N28.9 DISORDER OF KIDNEY AND URETER, UNSPECIFI 11/21/2017 LILLY CORTES APRN Ot R10.32 LEFT LOWER QUADRANT PAIN 11/21/2017 NAZIA VARGAS DC, Ot M54.13 RADICULOPATHY, CERVICOTHORACIC REGION 11/21/2017 NAZIA VARGAS DC Ot M79.1 MYALGIA 11/21/2017 NAZIA VARGAS DC Ot R29.3 ABNORMAL POSTURE 11/21/2017 ASHLEY BROCK APRN Ot E11.9 TYPE 2 DIABETES MELLITUS WITHOUT COMPLIC 11/21/2017 ASHLEY BROCK APRN Ot E78.00 PURE HYPERCHOLESTEROLEMIA, UNSPECIFIED 11/21/2017 ASHLEY BROCK APRN Ot F32.9 MAJOR DEPRESSIVE DISORDER, SINGLE EPISOD 11/21/2017 ASHELY BROCK APRN Ot G47.30 SLEEP APNEA, UNSPECIFIED 11/21/2017 ASHLEY BROCK APRN Ot I10 ESSENTIAL (PRIMARY) HYPERTENSION 11/21/2017 ASHLEY BROCK APRN Ot K21.9 GASTRO-ESOPHAGEAL REFLUX DISEASE WITHOUT 11/21/2017 ASHLEY BROCK APRN Ot M06.9 RHEUMATOID ARTHRITIS, UNSPECIFIED 11/21/2017 ASHLEY BROCK APRN Ot M10.9 GOUT, UNSPECIFIED 11/21/2017 ASHLEY BROCK APRN Ot M54.5 LOW BACK PAIN 11/21/2017 ASHLEY BROCK APRN Ot M54.9 DORSALGIA, UNSPECIFIED 11/21/2017 ASHLEY BROCK APRN Ot R00.0 TACHYCARDIA, UNSPECIFIED 11/21/2017 ASHLEY BROCK APRN Ot Z79.84 [facility] (CURRENT) USE OF ORAL HYPOGLYC 11/21/2017 ASHLEY BROCK APRN Ot Z80.0 FAMILY HISTORY OF MALIGNANT NEOPLASM OF 11/21/2017 ASHLEY BROCK APRN Ot Z87.891 PERSONAL HISTORY OF NICOTINE DEPENDENCE 11/21/2017 ASHLEY BROCK APRN Ot Z88.0 ALLERGY STATUS TO PENICILLIN 11/21/2017 ASHLEY BROCK APRN Ot Z90.89 ACQUIRED ABSENCE OF OTHER ORGANS 11/24/2017 ASHLEY BROCK APRN Ot E11.9 TYPE 2 DIABETES MELLITUS WITHOUT COMPLIC 11/24/2017 ASHLEY BROCK APRN Ot E78.00 PURE HYPERCHOLESTEROLEMIA, UNSPECIFIED 11/24/2017 ASHLEY BROCK APRN Ot F32.9 MAJOR DEPRESSIVE DISORDER, SINGLE EPISOD 11/24/2017 ASHLEY BROCK APRN Ot G47.30 SLEEP APNEA, UNSPECIFIED 11/24/2017 ASHLEY BROCK APRN Ot I10 ESSENTIAL (PRIMARY) HYPERTENSION 11/24/2017 ASHLEY BROCK APRN Ot K21.9 GASTRO-ESOPHAGEAL REFLUX DISEASE WITHOUT 11/24/2017 ASHLEY BROCK APRN Ot M06.9 RHEUMATOID ARTHRITIS, UNSPECIFIED 11/24/2017 ASHLEY BROCK APRN Ot M10.9 GOUT, UNSPECIFIED 11/24/2017 ASHLEY BROCK APRN Ot M54.5 LOW BACK PAIN 11/24/2017 ASHLEY BROCK APRN Ot M54.9 DORSALGIA, UNSPECIFIED 11/24/2017 ASHLEY BROCK APRN Ot R00.0 TACHYCARDIA, UNSPECIFIED 11/24/2017 ASHLEY BROCK APRN Ot Z79.84 PRIOR AUTHORIZATION NURSE (CURRENT) USE OF ORAL HYPOGLYC 11/24/2017 ASHLEY BROCK APRN Ot Z80.0 FAMILY HISTORY OF MALIGNANT NEOPLASM OF 11/24/2017 ASHLEY BROCK APRN Ot Z87.891 PERSONAL HISTORY OF NICOTINE DEPENDENCE 11/24/2017 ASHLEY BROCK APRN Ot Z88.0 ALLERGY STATUS TO PENICILLIN 11/24/2017 ASHLEY BROCK APRN Ot Z90.89 ACQUIRED ABSENCE OF OTHER ORGANS 11/24/2017 ASHLEY BROCK APRN Ot E11.9 TYPE 2 DIABETES MELLITUS WITHOUT COMPLIC 11/24/2017 ASHLEY BROCK APRN Ot E78.00 PURE HYPERCHOLESTEROLEMIA, UNSPECIFIED 11/24/2017 ASHLEY BROCK APRN Ot F32.9 MAJOR DEPRESSIVE DISORDER, SINGLE EPISOD 11/24/2017 ASHLEY BROCK APRN Ot G47.30 SLEEP APNEA, UNSPECIFIED 11/24/2017 ASHLEY BROCK APRN Ot I10 ESSENTIAL (PRIMARY) HYPERTENSION 11/24/2017 ASHLEY BROCK APRN Ot K21.9 GASTRO-ESOPHAGEAL REFLUX DISEASE WITHOUT 11/24/2017 ASHLEY BROCK APRN Ot M06.9 RHEUMATOID ARTHRITIS, UNSPECIFIED 11/24/2017 ASHLEY BROCK APRN Ot M10.9 GOUT, UNSPECIFIED 11/24/2017 ASHLEY BROCK APRN Ot M54.5 LOW BACK PAIN 11/24/2017 ASHLEY BROCK APRN Ot M54.9 DORSALGIA, UNSPECIFIED 11/24/2017 ASHLEY BROCK APRN Ot R00.0 TACHYCARDIA, UNSPECIFIED 11/24/2017 ASHLEY BROCK APRN Ot Z79.84 [facility] (CURRENT) USE OF ORAL HYPOGLYC 11/24/2017 ASHLEY BROCK APRN Ot Z80.0 FAMILY HISTORY OF MALIGNANT NEOPLASM OF 11/24/2017 ASHLEY BROCK APRN Ot Z87.891 PERSONAL HISTORY OF NICOTINE DEPENDENCE 11/24/2017 ASHLEY BROCK APRN Ot Z88.0 ALLERGY STATUS TO PENICILLIN 11/24/2017 ASHLEY BROCK APRN Ot Z90.89 ACQUIRED ABSENCE OF OTHER ORGANS 04/28/2018 TELLO EDGAR Ot M79.661 PAIN IN RIGHT LOWER LEG 04/28/2018 LILLY CORTES MACHINE STAMPER Ot N28.9 DISORDER OF KIDNEY AND URETER, UNSPECIFI 04/28/2018 LILLY CORTES MACHINE STAMPER Ot R10.32 LEFT LOWER QUADRANT PAIN 04/28/2018 NAZIA VARGAS DC, Ot M54.13 RADICULOPATHY, CERVICOTHORACIC REGION 04/28/2018 NAZIA VARGAS DC, Ot M79.1 MYALGIA 04/28/2018 NAZIA VARGAS DC, Ot R29.3 ABNORMAL POSTURE Procedures There is no data. Results Test [...] 9.0 fL 7.5-12.5 ABSOLUTE NEUTROPHILS 5330 cells/uL 3026-1526 ABSOLUTE LYMPHOCYTES 3468 cells/uL 850-3900 ABSOLUTE MONOCYTES [...] 250-425 % SATURATION 18 % (calc) 15-60 Complete blood count (CBC) with automated white blood cell (WBC) differential - 11/21/17 17:59 Blood leukocytes automated count (number/volume) 16.9 10*3/uL 4.3-11.0 Blood erythrocytes automated count (number/volume) 5.59 10*6/uL 4.35-5.85 Venous blood hemoglobin measurement (mass/volume) 13.5 g/dL 13.3-17.7 Blood hematocrit (volume fraction) 41 % 40-54 Automated erythrocyte mean corpuscular volume 73 [foz_us] 80-99 Automated erythrocyte mean corpuscular hemoglobin (mass per erythrocyte) 24 pg 25-34 Automated erythrocyte mean corpuscular hemoglobin concentration measurement ( mass/volume) 33 g/dL 32-36 Automated erythrocyte distribution width ratio 16.1 % 10.0-14.5 Automated blood platelet count (count/volume) 452 10*3/uL 130-400 Automated blood platelet mean volume measurement 9.3 [foz_us] 7.4-10.4 Automated blood neutrophils/100 leukocytes 59 % 42-75 Automated blood lymphocytes/100 leukocytes 33 % 12-44 Blood monocytes/100 leukocytes 8 % 0-12 Automated blood eosinophils/100 leukocytes 0 % 0-10 Automated blood basophils/100 leukocytes 0 % 0-10 Blood neutrophils automated count (number/volume) 9.9 10*3 1.8-7.8 Blood lymphocytes automated count (number/volume) 5.5 10*3 1.0-4.0 Blood monocytes automated count (number/volume) 1.4 10*3 0.0-1.0 Automated eosinophil count 0.1 10*3/uL 0.0-0.3 Automated blood basophil count (count/volume) 0.0 10*3/uL 0.0-0.1 Comprehensive metabolic panel - 11/21/17 17:59 Serum or plasma sodium measurement (moles/volume) 142 mmol/L 135-145 Serum or plasma potassium measurement (moles/volume) 2.9 mmol/L 3.6-5.0 Serum or plasma chloride measurement (moles/volume) 104 mmol/L 98-107 Carbon dioxide 19 mmol/L 21-32 Serum or plasma anion gap determination (moles/volume) 19 mmol/L 5-14 Serum or plasma urea nitrogen measurement (mass/volume) 26 mg/dL 7-18 Serum or plasma creatinine measurement (mass/volume) 2.03 mg/dL 0.60-1.30 Serum or plasma urea nitrogen/creatinine mass ratio 13 NRG Serum or plasma creatinine measurement with calculation of estimated glomerular filtration rate 42 NRG Serum or plasma glucose measurement (mass/volume) 189 mg/dL 70-105 Serum or plasma calcium measurement (mass/volume) 10.1 mg/dL 8.5-10.1 Serum or plasma total bilirubin measurement (mass/volume) 0.7 mg/dL 0.1-1.0 Serum or plasma alkaline phosphatase measurement (enzymatic activity/volume) 69 U/L 40-136 Serum or plasma aspartate aminotransferase measurement (enzymatic activity/ volume) 14 U/L 5-34 Serum or plasma alanine aminotransferase measurement (enzymatic activity/volume ) 26 U/L 0-55 Serum or plasma protein measurement (mass/volume) 7.7 g/dL 6.4-8.2 Serum or plasma albumin measurement (mass/volume) 4.1 g/dL 3.2-4.5 Serum or plasma troponin i.cardiac measurement (mass/volume) - 11/21/17 17:59 Serum or plasma troponin i.cardiac measurement (mass/volume) < ng/ mL <0.30 Blood manual differential performed detection - 11/21/17 17:59 Blood monocytes/100 leukocytes 5 % NRG Manual blood segmented neutrophils/100 leukocytes 57 % NRG Blood band neutrophils/100 leukocytes 0 % NRG Manual blood lymphocytes/100 leukocytes 38 % NRG Manual eosinophils/100 leukocytes in nose 0 % NRG Manual blood basophils/100 leukocytes 0 % NRG Blood erythrocyte morphology finding identification NORMAL NRG Fibrin D-dimer FEU measurement in platelet poor plasma (mass/volume) - 17:59 Fibrin D-dimer FEU measurement in platelet poor plasma (mass/volume) 1.83 ug/mL 0.00-0.49 Magnesium - 11/21/17 17:59 Magnesium 1.8 mg/dL 1.8-2.4 Serum or plasma lithium measurement (moles/volume) - 11/21/17 17:59 BNP level < pg/mL <100.0 Complete urinalysis with reflex to culture - 11/21/17 18:47 Urine color determination YELLOW NRG Urine clarity determination CLEAR NRG Urine pH measurement by test strip 5 5-9 Specific gravity of urine by test strip 1.020 1.016- 1.022 Urine protein assay by test strip, semi-quantitative 3+ NEGATIVE Urine glucose detection by automated test strip NEGATIVE NEGATIVE Erythrocytes detection in urine sediment by light microscopy NEGATIVE NEGATIVE Urine ketones detection by automated test strip NEGATIVE NEGATIVE Urine nitrite detection by test strip NEGATIVE NEGATIVE Urine total bilirubin detection by test strip NEGATIVE NEGATIVE Urine urobilinogen measurement by automated test strip (mass/volume) NORMAL NORMAL Urine leukocyte esterase detection by dipstick 1+ NEGATIVE Automated urine sediment erythrocyte count by microscopy (number/high power field) NONE NRG Automated urine sediment leukocyte count by microscopy (number/high power field ) [HPF] NRG Bacteria detection in urine sediment by light microscopy FEW NRG Crystals detection in urine sediment by light microscopy NONE NRG Casts detection in urine sediment by light microscopy PRESENT NRG Mucus detection in urine sediment by light microscopy MODERATE NRG Complete urinalysis with reflex to culture NO NRG Hyaline casts detection in urine sediment by light microscopy 25-50 NRG Automated blood complete blood count (hemogram) panel - 11/21/17 20:19 Blood leukocytes automated count (number/volume) 15.2 10*3/uL 4.3-11.0 Blood erythrocytes automated count (number/volume) 4.88 10*6/uL 4.35-5.85 Venous blood hemoglobin measurement (mass/volume) 12.1 g/dL 13.3-17.7 Blood hematocrit (volume fraction) 36 % 40-54 Automated erythrocyte mean corpuscular volume 74 [foz_us] 80-99 Automated erythrocyte mean corpuscular hemoglobin (mass per erythrocyte) 25 pg 25-34 Automated erythrocyte mean corpuscular hemoglobin concentration measurement ( mass/volume) 34 g/dL 32-36 Automated erythrocyte distribution width ratio 15.5 % 10.0-14.5 Automated blood platelet count (count/volume) 342 10*3/uL 130-400 Automated blood platelet mean volume measurement 9.0 [foz_us] 7.4-10.4 Complete blood count (CBC) with automated white blood cell (WBC) differential - 06/01/18 09:49 Blood leukocytes automated count (number/volume) 10.0 10*3/uL 4.3-11.0 Blood erythrocytes automated count (number/volume) 4.87 10*6/uL 4.35-5.85 Venous blood hemoglobin measurement (mass/volume) 11.3 g/dL 13.3-17.7 Blood hematocrit (volume fraction) 35 % 40-54 Automated erythrocyte mean corpuscular volume 72 [foz_us] 80-99 Automated erythrocyte mean corpuscular hemoglobin (mass per erythrocyte) 23 pg 25-34 Automated erythrocyte mean corpuscular hemoglobin concentration measurement ( mass/volume) 32 g/dL 32-36 Automated erythrocyte distribution width ratio 15.7 % 10.0-14.5 Automated blood platelet count (count/volume) 549 10*3/uL 130-400 Automated blood platelet mean volume measurement 8.9 [foz_us] 7.4-10.4 Automated blood neutrophils/100 leukocytes 59 % 42-75 Automated blood lymphocytes/100 leukocytes 34 % 12-44 Blood monocytes/100 leukocytes 5 % 0-12 Automated blood eosinophils/100 leukocytes 2 % 0-10 Automated blood basophils/100 leukocytes 0 % 0-10 Blood neutrophils automated count (number/volume) 5.9 10*3 1.8-7.8 Blood lymphocytes automated count (number/volume) 3.3 10*3 1.0-4.0 Blood monocytes automated count (number/volume) 0.5 10*3 0.0-1.0 Automated eosinophil count 0.2 10*3/uL 0.0-0.3 Automated blood basophil count (count/volume) 0.0 10*3/uL 0.0-0.1 Encounters ACCT No. Visit Date/Time Discharge Status Pt. Type Provider Facility Loc./Unit Complaint [id number] 11/21/2017 17:33:00 11/21/2017 21:48:00 DIS Emergency ASHLEY BROCK APRN [facility] ER BACK PAIN;TROUBLE BREATHING [id number] 01/19/2017 12:00:00 01/20/2017 16:55:00 DIS Inpatient TENZIN VILLASEÑOR, RODRI Quispe [facility] 4TH SI, AUDIO HALLUCINATIONS , PSCHOSIS [id number] 10/03/2016 16:59:00 10/03/2016 23:59:59 CLS Outpatient NAZIA VRAGAS DC [facility] RAD M54.2,M79.1 [id number] 05/22/2016 07:53:00 05/22/2016 23:59:59 CLS Outpatient LILLY CORTES APRN [facility] RAD ACUTE RT FLANK PAIN, ACUTE LT LOWER QUAD PAIN [id number] 02/06/2016 12:00:00 02/06/2016 14:30:00 DIS Outpatient ORTIZ MARR DO [facility] SDC GERD [id number] 01/31/2016 05:48:00 01/31/2016 12:30:00 DIS Outpatient ORTIZ MARR DO [facility] PREOP GERD [id number] 01/04/2016 15:51:00 01/04/2016 20:12:00 DIS Emergency PETE LANDRY [facility] ER NAUSEA [id number] 12/17/2015 18:43:00 12/17/2015 21:22:00 DIS Emergency MARISA VILLASEÑOR, WHITNEY Dejesus [facility] ER BACK PAIN [id number] 12/08/2015 15:42:00 12/08/2015 23:59:59 CLS Outpatient TELLO EDGAR [facility] RAD PAIN OF RT CALF [id number] 08/13/2015 11:00:00 08/13/2015 13:50:00 DIS Emergency SHEY VILLASEÑOR, DOMO Martin [facility] ER MULTIPLE COMPLAINTS [id number] 06/01/2018 09:56:00 Document Registration [id number] 07/23/2016 08:40:00 Document Registration [id number] 01/01/2018 10:40:00 01/01/2018 23:59:59 CLS Out[facility] [id number] 08/25/2017 09:00:00 Document Registration [id number] 08/11/2017 11:00:00 Document Registration [id number] 06/08/2016 08:35:00 Document Registration
[2018-06-01 10:14] LABS: INR 1.1 (0.8-1.4); PROTHROMBIN TIME PATIENT 13.7 SEC (12.2-14.7)
[2018-06-01 10:17] LABS: ALANINE AMINOTRANSFERASE 15 U/L (0-55); ALKALINE PHOSPHATASE 80 U/L (40-136); BILIRUBIN,TOTAL 0.8 MG/DL (0.1-1.0); BUN/CREATININE RATIO 8; CALCIUM 10.3 MG/DL (8.5-10.1); CARBON DIOXIDE 25 MMOL/L (21-32); CHLORIDE 98 MMOL/L (98-107); CREATININE SERUM 1.39 MG/DL (0.60-1.30); GFR ESTIMATED > 60; GLUCOSE 146 MG/DL (70-105); MAGNESIUM 1.5 MG/DL (1.8-2.4); POTASSIUM 3.3 MMOL/L (3.6-5.0); SODIUM 141 MMOL/L (135-145); TOTAL PROTEIN 7.9 GM/DL (6.4-8.2)
--- NOTE | 2018-06-01 10:26 | Diagnostic Imaging Report ---
Indication: Chest pain Portable chest 10:05 AM Heart size and pulmonary vascularity are normal. Lungs are clear. There are no effusions or pneumothoraces. Impression: Negative chest. Dictated by: Dictated on workstation # [id number]
[2018-06-01] MEDS ORDERED: IOHEXOL 350 MG/ML 150 ML (OMNIPAQUE 350) VIAL IV ONE (11:15)
[2018-06-01] MEDS ORDERED: NS 250 ML (IVPB) BAG IV ONE (11:15)
[2018-06-01] MEDS ORDERED: RECEIVED CONTRAST (Hold Metformin) IV SCH (11:15)
--- NOTE | 2018-06-01 11:44 | Diagnostic Imaging Report ---
PROCEDURE: CT angiography of the chest with contrast. TECHNIQUE: Multiple contiguous axial images were obtained through the chest after uneventful bolus administration of intravenous contrast. 2D reconstructed CTA MIP acquisitions were also performed. INDICATION: Chest pain with dizziness. COMPARISON: No previous for direct comparison. Study interpreted in correlation with overlapped images obtained at the time of an abdominal CT 05/22/2016 and correlated with recent, as well as two-year old, chest x-rays. FINDINGS: There is a mass which is inseparable from the caudal pole of the left thyroid lobe extending retrosternal into the left superior mediastinum resulting in mild rightward deviation of the trachea. Tracheal mass effect and mediastinal prominence are unchanged to the comparison radiographs. 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 It is partially calcified and laterally displaces and alters the normal contour of the left innominate vein without its obstruction. In axial plane, this mass measures 5.3 x 4 cm. No other mediastinal abnormality. There is no hilar mass. Pulmonary arterial branches are patent. No filling defect. No PE. The aorta is patent and nonaneurysmal. No pleural or pericardial effusion. No lung mass. There is some very mild linear scarring or atelectatic changes perifissural right lower lobe. Visualized upper abdomen nonacute. IMPRESSION: 1. Negative for PE or acute aortic disease. 2. 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 3. No acute appearing abnormality. Dictated by: Dictated on workstation # [id number]
--- NOTE | 2018-06-01 12:04 | ED Chest Pain ---
General Chief Complaint: General Problems/Pain Stated Complaint: CHEST PAIN,DIZZINESS Nursing Triage Note: pt presents to er with complaint of ankle pain and chest pain and soa earlier this morning. pt is not currently having chest pain or soa at time of arrival. pt states he is unable to walk due to his ankle. is supposed to have ankle surgery, but has not due to diabetes. Nursing Sepsis Screen: No Definite Risk Source: patient, old records Exam Limitations: no limitations History of Present Illness Date Seen by Provider: Jun 01, 2018 Time Seen by Provider: 09:49 Initial Comments This 52 gentleman presents to the emergency room with complaints of chest pain that started this morning when he woke. Chest pain was accompanied by dizziness. He also complains of progressive weakness to the extent that he is no longer able to walk independently. This started after he had an ankle fracture in early March. He has been nonweightbearing most of that time and has become progressively weak. He also has chronic illnesses including diabetes. He is noted to be tachycardic with a heart rate in the 120s upon arrival. Patient states he has been seen in emergency rooms in the past for chest pain as well. These were generally attributed to "panic attacks". He has not had any definitive cardiac workup. He states he feels particularly lightheaded and weak when he attempts to stand or walk. Allergies and Home Medications Allergies Coded Allergies: Penicillins (Verified Allergy, Unknown, 01/31/16) Home Medications Aripiprazole 15 Mg Tablet, 15 MG PO DAILY, (Reported) Colchicine 0.6 Mg Tablet, 0.6 MG PO BID PRN for GOUT FLARE, (Reported) Febuxostat 80 Mg Tablet, 80 MG PO DAILY, (Reported) Ibuprofen 800 Mg Tablet, 800 MG PO TID PRN for PAIN-MILD, (Reported) Lisinopril 10 Mg Tablet, 10 MG PO DAILY, (Reported) Mag Hydrox/Al Hydrox/Simeth 30 Ml Oral.susp, 30 ML PO HS PRN for INDIGESTION, ( Reported) Metformin HCl 500 Mg Tablet, 500 MG PO BID, (Reported) Potassium Chloride 10 Meq Tablet.er, 10 MEQ PO BID, (Reported) LAST FILLED #60 8-4-18 Pravastatin Sodium 10 Mg Tablet, 10 MG PO HS, (Reported) Patient Home Medication List Home Medication List Reviewed: Yes Review of Systems Review of Systems Constitutional: no symptoms reported EENTM: No Symptoms Reported Respiratory: No Symptoms Reported Cardiovascular: See HPI Gastrointestinal: No Symptoms Reported Genitourinary: No Symptoms Reported Musculoskeletal: see HPI Skin: no symptoms reported Psychiatric/Neurological: No Symptoms Reported Endocrine: No Symptoms Reported Hematologic/Lymphatic: No Symptoms Reported Past Oqwaovv-Wpvjcy-Tkwmyi Hx Past Med/Social Hx: Reviewed and Corrections made Patient Social History Alcohol Use: Denies Use Recreational Drug Use: No Smoking Status: Former Smoker Type Used: Cigarettes, Smokeless Tobacco Former Smoker, Quit: Jan 19, 1990 Recent Foreign Travel: No Contact w/Someone Who Travel: No Recent Infectious Disease Expo: No Recent Hopitalizations: No Immunizations Up To Date Tetanus Booster (TDap): Unknown Date of Pneumonia Vaccine: Aug 08, 2013 Seasonal Allergies Seasonal Allergies: No Past Medical History Surgeries: Yes Gallbladder, Tonsillectomy Respiratory: Yes (SLEEP APNEA) Sleep Apnea Currently Using CPAP: Yes Currently Using BIPAP: No Cardiac: No High Cholesterol, Hypertension Neurological: No Reproductive Disorders: No Sexually Transmitted Disease: No HIV/AIDS: No Genitourinary: No Gastrointestinal: No Gastroesophageal Reflux Musculoskeletal: Yes Arthritis, Rheumatoid Arthritis, Gout Endocrine: Yes Diabetes, Non-Insulin dep, Lupus HEENT: No Cancer: No Psychosocial: Yes (History of psychosis) Depression Integumentary: No Blood Disorders: No Family Medical History Diabetes mellitus 19 MOTHER PATERNAL GRANDFATHER Neoplasm 19 FATHER (THROAT CANCER-SMOKER) No Pertinent Family Hx Physical Exam Vital Signs Vital Signs - First Documented 06/01/18 09:41 Pulse 108 Resp 20 B/P (MAP) 155/109 (124) Pulse Ox 98 O2 Delivery Room Air Capillary Refill : Less Than 3 Seconds Height, Weight, BMI Height: 5'10.00" Weight: 300lbs. oz. 136.614182ms; 45.2 BMI Method:Stated General Appearance: No Apparent Distress, WD/WN, Obese HEENT: PERRL/EOMI, Normal ENT Inspection Neck: Normal Inspection Respiratory: Lungs Clear, Normal Breath Sounds, No Accessory Muscle Use, No Respiratory Distress Cardiovascular: Regular Rate, Rhythm, No Murmur, Normal Peripheral Pulses, Tachycardia Gastrointestinal: Normal Bowel Sounds, Non Tender, Soft Extremity: Normal Inspection, Pedal Edema Neurologic/Psychiatric: Alert, Oriented x3, Normal Mood/Affect, Motor Weakness (Generalized muscle weakness of the lower extremities) Skin: Normal Color, Warm/Dry Progress/Results/Core Measures Results/Orders Lab Results Laboratory Tests Test 06/01/18 09:49 Range/Units White Blood Count 10.0 4.3-11.0 10^3/uL Red Blood Count 4.87 4.35-5.85 10^6/uL Hemoglobin 11.3 L 13.3-17.7 G/DL Hematocrit 35 L 40-54 % Mean Corpuscular Volume 72 L 80-99 FL Mean Corpuscular Hemoglobin 23 L 25-34 PG Mean Corpuscular Hemoglobin Concent 32 32-36 G/DL Red Cell Distribution Width 15.7 H 10.0-14.5 % Platelet Count 549 H 130-400 10^3/uL Mean Platelet Volume 8.9 7.4-10.4 FL Neutrophils (%) (Auto) 59 42-75 % Lymphocytes (%) (Auto) 34 12-44 % Monocytes (%) (Auto) 5 0-12 % Eosinophils (%) (Auto) 2 0-10 % Basophils (%) (Auto) 0 0-10 % Neutrophils # (Auto) 5.9 1.8-7.8 X 10^3 Lymphocytes # (Auto) 3.3 1.0-4.0 X 10^3 Monocytes # (Auto) 0.5 0.0-1.0 X 10^3 Eosinophils # (Auto) 0.2 0.0-0.3 10^3/uL Basophils # (Auto) 0.0 0.0-0.1 10^3/uL Prothrombin Time 13.7 12.2-14.7 SEC INR Comment 1.1 0.8-1.4 Activated Partial Thromboplast Time 39 H 24-35 SEC Sodium Level 141 135-145 MMOL/L Potassium Level 3.3 L 3.6-5.0 MMOL/L Chloride Level 98 98-107 MMOL/L Carbon Dioxide Level 25 21-32 MMOL/L Anion Gap 18 H 5-14 MMOL/L Blood Urea Nitrogen 11 7-18 MG/DL Creatinine 1.39 H 0.60-1.30 MG/DL Estimat Glomerular Filtration Rate > 60 BUN/Creatinine Ratio 8 Glucose Level 146 H 70-105 MG/DL Calcium Level 10.3 H 8.5-10.1 MG/DL Corrected Calcium 10.3 H 8.5-10.1 MG/DL Magnesium Level 1.5 L 1.8-2.4 MG/DL Total Bilirubin 0.8 0.1-1.0 MG/DL Aspartate Amino Transf (AST/SGOT) 15 5-34 U/L Alanine Aminotransferase (ALT/SGPT) 15 0-55 U/L Alkaline Phosphatase 80 40-136 U/L Myoglobin 50.0 10.0-92.0 NG/ML Troponin I < 0.30 <0.30 NG/ML Total Protein 7.9 6.4-8.2 GM/DL Albumin 4.0 3.2-4.5 GM/DL My Orders Orders - GHADA BOTELLO MD Cbc With Automated Diff (06/01/18 09:49) Magnesium (06/01/18 09:49) Chest 1 View, Ap/Pa Only (06/01/18:49) Ekg Tracing (06/01/18:49) Cardiac Profile 1 (06/01/18:49) Comprehensive Metabolic Panel (06/01/18:49) Myoglobin Serum (06/01/18 09:49) Protime With Inr (06/01/18:49) Partial Thromboplastin Time (06/01/18:49) O2 (06/01/18 09:49) Monitor-Rhythm Ecg Trace Only (06/01/18:49) Lipid Panel (06/02/18 06:00) Saline Lock/Iv-Start (06/01/18 09:49) Saline Lock/Iv-Start (06/01/18 10:02) Ns Iv 1000 Ml (Sodium Chloride 0.9%) (06/01/18 10:02) Ct Angio Chest W (06/01/18 11:06) Iohexol Injection (Omnipaque 350 Mg/Ml 1 (06/01/18 11:15) Contrast Received (Contrast Received) (06/01/18 11:15) Ns (Ivpb) (Sodium Chloride 0.9%) (06/01/18 11:15) Medications Given in ED Current Medications Medications Dose Ordered Sig/Rosa M Route Start Time Stop Time Status Last Admin Dose Admin Iohexol 140 ml ONCE ONCE IV 06/01/18 11:15 06/01/18 11:16 DC 06/01/18 11:20 140 ML Sodium Chloride 250 ml ONCE ONCE IV 06/01/18 11:15 06/01/18 11:16 DC 06/01/18 11:20 80 ML Sodium Chloride 1,000 ml @ 0 mls/hr Q0M ONCE IV 06/01/18 10:02 06/01/18 10:03 DC 06/01/18 10:20 1,000 MLS/HR Vital Signs/I&O 06/01/18 09:41 Pulse 108 Resp 20 B/P (MAP) 155/109 (124) Pulse Ox 98 O2 Delivery Room Air Blood Pressure Mean: 124 Progress Progress Note : Progress Note Patient was found to have mild electrolyte abnormalities. Electrolytes are being replaced on bridging orders. Tachycardia did improve after liter of IV fluid. Mediastinal mass was found on CT angiogram. This could possibly be an extension of a goiter. It was seen on imaging in 2015 as well. Case was discussed with Dr. Pedroza who had recommended the CT angiogram. No pulmonary embolus or aortic pathology was found. Patient will be admitted for further evaluation including PT and acute rehabilitation evaluation. Initial ECG Impression Date: Jun 01, 2018 Initial ECG Impression Time: 09:39 Initial ECG Rate: 121 Initial ECG Rhythm: S.Tach Comment Sinus tachycardia with no ST elevation or depression. Borderline prolonged QT. No significant axis deviation. Diagnostic Imaging Diagonstic Imaging: CT Plain Films/CT/US/NM/MRI: chest Comments CT angiogram of the chest viewed by me and report reviewed. See report below: NAME: JAZLYN BARRIGA [facility] REC#: [id number] PT STATUS: REG ER : 1965 PHYSICIAN: GHADA BOTELLO MD ADMIT DATE: 06/01/18/ER Draft Date of Exam:06/01/18 CT ANGIO CHEST W PROCEDURE: CT angiography of the chest with contrast. TECHNIQUE: Multiple contiguous axial images were obtained through the chest after uneventful bolus administration of intravenous contrast. 2D reconstructed CTA MIP acquisitions were also performed. INDICATION: Chest pain with dizziness. COMPARISON: No previous for direct comparison. Study interpreted in correlation with overlapped images obtained at the time of an abdominal CT 05/22/2016 and correlated with recent, as well as two-year old, chest x-rays. FINDINGS: There is a mass which is inseparable from the caudal pole of the left thyroid lobe extending retrosternal into the left superior mediastinum resulting in mild rightward deviation of the trachea. Tracheal mass effect and mediastinal prominence are unchanged to the comparison radiographs. 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 It is partially calcified and laterally displaces and alters the normal contour of the left innominate vein without its obstruction. In axial plane, this mass measures 5.3 x 4 cm. No other mediastinal abnormality. There is no hilar mass. Pulmonary arterial branches are patent. No filling defect. No PE. The aorta is patent and nonaneurysmal. No pleural or pericardial effusion. No lung mass. There is some very mild linear scarring or atelectatic changes perifissural right lower lobe. Visualized upper abdomen nonacute. IMPRESSION: 1. Negative for PE or acute aortic disease. 2. 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 3. No acute appearing abnormality. Dictated on workstation # [id number] Dict: 06/01/18 1134 Trans: 06/01/18 [id number] [id number] Interpreted by: ISACC HALLMAN Departure Communication (Admissions) Time/Spoke to Admitting Phy: 11:50 Dr. Stokes Time/Spoke to Consulting Phy: 11:00 Dr. Pedroza Impression Primary Impression: Chest pain Qualified Codes: R07.9 - Chest pain, unspecified Additional Impressions: Mediastinal mass Debility Generalized weakness Hypokalemia Hypomagnesemia Sinus tachycardia Disposition: ADMITTED INPATIENT Condition: Stable Admissions Decision to Admit Reason: Admit from ER (General) Decision to Admit/Date: Jun 01, 2018 Time/Decision to Admit Time: 11:50 Departure-Patient Inst. Referrals: EDGARDO BATES MD (PCP/Family) Primary Care Physician Patient Instructions: CONTRAST ANTIDIABETIC ARTS GHADA BOTELLO MD Jun 01, 2018 12:04
[2018-06-01] MEDS ORDERED: CATHETER FLUSH 10 ML SYR IV PRN (14:00)
[2018-06-01] MEDS ORDERED: FLU QUADRIvalent (5+ YOA) 2018-2019 (AFLURIA) 0.5 ML IM ONE (14:15)
[2018-06-01] MEDS ORDERED: ARIP15TA9 PO (14:22)
[2018-06-01] MEDS ORDERED: IBUP-850 PO (14:22)
[2018-06-01] MEDS ORDERED: METF-397 PO (14:22)
[2018-06-01] MEDS: MAGNESIUM 1 GM/D5W 100 ML IVPB IV SCH ×2 (14:27→15:23)
[2018-06-01] MEDS: NS W/KCL 20 MEQ/L 1,000 ML IV SCH (14:27)
--- NOTE | 2018-06-01 14:40 | Physical Therapy Evaluation ---
PT Evaluation-General Medical Diagnosis Admission Date Jun 01, 2018 at 11:54 Medical Diagnosis: generalized weakness/CP Onset Date: Jun 01, 2018 Therapy Diagnosis Therapy Diagnosis: weakness/debility Height/Weight Height (Feet): 5 Height (Inches): 2.00 Weight (Pounds): 300 Weight (Ounces): 0.1 Precautions Precautions/Isolations: Fall Prevention, Standard Precautions Weight Bear Status Right Lower Extremity: Right Full Weight Bearing Left Lower Extremity: Left Full Weight Bearing Referral Physician: Kike Reason for Referral: Evaluation/Treatment Medical History Pertinent Medical History: DM, HTN, Rheumatoid Arthritis Additional Medical History Gout/mediastinal mass Current History ED with bilateral ankle pain and CP with anxiety/panic attacks. Reviewed History: Yes Social History Home: Single Level Current Living Status: Spouse Prior/Core FIM Prior Level of Function Therapy Code Descriptions/Definitions Functional [place] Measure: 0=Not Assessed/NA 4=Minimal Assistance 1=Total Assistance 5=Supervision or Setup 2=Maximal Assistance 6=Modified [place] 3=Moderate Assistance 7=Complete [place] Therapy Quality Codes: 6 Independent with activity with or without an assistive device 5 Patient requires set up or clean up by helper. Patient completes activity by themselves 4 Supervision or touching assist (CGA). Glenvil provide cues , steadying assist 3 The helper provides less than half the effort to complete the activity 2 The helper provides more than half the effort to complete the activity 1 Dependent. The helper does all the effort to complete an activity 7 Patient refused to complete or attempt activity 9 The patient did not perform the activity before the current illness or injury 88 Not attempted due to Medical conditions or safety concerns Functional Abilities and Goals: Independent: Patient completed the activities by him/herself, with or without an assistive device, with no assistance from a helper. Needed Some Help: Patient needed partial assistance from another person to complete activities. Dependent: A helper completed the activities for the patient. Unknown: Not Applicable: Bed Mobility: 2 Transfers (B,C,W/C) (FIM): 2 Gait: 0 Indoor Mobility (Ambulation): Dependent Stairs: Dependent per spouse, patient has not been OOB and has had to be cleansed and is incontinent x >2 months PT Evaluation-Current Subjective Patient agrees to PT. Pain Numeric Pain Scale: 0-No Pain Location: No Pain Reported Objective Patient Orientation: Person, Time, Situation Problem Solving: Poor ROM/Strength ROM Lower Extremities limited bilateral ankle ROM all planes with inability to attain neutral to stand safely Strength Lower Extremities 3-/5 grossly bilaterally Integumentary/Posture Integumentary refer to nursing notes Bowel Incontinence: Yes Bladder Incontinence: Yes Posture trunk flexed posture in stand Neuromuscular (Tone, Coordination, Reflexes) diminished coordination due to inactivity PLOF Sensory Vision: Wears Glasses Hearing: Functional Sensation Right Lower Extremit: Impaired Sensation Left Lower Extremity: Impaired Transfers Therapy Code Descriptions/Definitions Functional [place] Measure: 0=Not Assessed/NA 4=Minimal Assistance 1=Total Assistance 5=Supervision or Setup 2=Maximal Assistance 6=Modified [place] 3=Moderate Assistance 7=Complete [place] Transfers (B, C, W/C) (FIM): 2 Scootin Rollin Supine to/from Sit: 5 Sit to/from Stand: 2 difficulty attaining standing position secondary to inability to attain neutral ankle dorsi/plantarflexion bilaterally and overall weakness Balance Sitting Static: Good Sitting Dynamic: Good Standing Static: Poor Standing Dynamic: Poor Assessment/Needs 52 y.o. male, will benefit from skilled PT to address functional strength and mobility to improve current LOF. Patient appears to self limit due to anxiety, per his report, and weakness. Rehab Potential: Fair PT Yarn Dumper Goals Alf Goals PT Alf Goals Time Frame: Jun 13, 2018 Transfers (B,C,W/C) (FIM): 4 Gait (FIM): 1 Gait distance (FIM): 1=up to 49 ft Distance: 10' Gait Level of Assist: 4 Gait Assistive Device: FWW PT Plan Problem List Problem List: Activity Tolerance, Functional Strength, Safety, Balance, Gait, Transfer, Bed Mobility, ROM Treatment/Plan Treatment Plan: Continue Plan of Care Treatment Plan: Bed Mobility, Education, Functional Activity Araceli, Functional Strength, Gait, Safety, Therapeutic Exercise, Transfers Treatment Duration: Jun 13, 2018 Frequency: 6 times per week Estimated Hrs Per Day: .5 hour per day Patient and/or Family Agrees t: Yes Time/GCodes Time In: 1405 Time Out: 1425 Total Billed Treatment Time: 20 Total Billed Treatment 1 visit EVModC 20 min G Codes Necessary: Yes PT/OT Therapy GCodes Therapy Functional Limitation: Physical Therapy Test(s)/Tool used to determine: Level of Assistance Scale Functional Limitation-Current Charge Code: MOBCUR Modifier: CM Functional Limitation-Goal Charge Code: MOBGOAL Modifier: CK YOANA,MURALI PT Jun 01, 2018 14:40
[2018-06-01] MEDS ORDERED: COLC0.6T56 PO (14:46)
--- NOTE | 2018-06-01 16:12 | Consultation-Cardiology ---
HPI-Cardiology Cardiology Consultation: Date of Consultation 06/01/18 Time Seen by a Provider: 14:45 Date of Admission 06-01-18 Attending Physician Wen Stokes MD Admitting Physician Ryley Jones MD Consulting Physician Artis Pedroza MD HPI: Chief Complaint: Chest pain Mr. Rivera is a 52 year old male admitted to [facility] from the ED. He reports he fractured his right ankle in late March. He reports he did not have any surgical repair. He states he was evaluated and told to not bear weight on that foot and it would heal. He states he was using his left leg to bear all his weight and then he developed gout. He reports he has has been on oral steroids d/t gout flair up. He states he has "barely been able to get out of bed" for approx the last month and a half. He states every time he would get out of bed his legs would become weak and start to shake. This has been progressively worse. He reports his told him this morning he needed to come to the ED. He states he then stood up at the side of his bed became dizzy and started to have localized left sided chest pressure which persisted for approx 30 minutes and then gradually resolved. He denies any SOB, palpitations , syncope or near syncope. He reports bilat LE swelling. Review of Systems-Cardiology Review of Systems Constitutional: No chills, No fever Eyes: No vision change Ears/Nose/Throat: No epistaxis, No nasal drainage, No recent hearing loss Respiratory: As described under HPI Cardiovascular: As described under HPI Gastrointestinal: No constipation, No diarrhea, No nausea, No vomiting Genitourinary: No dysuria, No hematuria Musculoskeletal: As describe under HPI Skin: No rash, No ulcerations Psychiatric/Neurological: No seizure, No focal weakness, No syncope Hematologic: No bleeding abnormalities FBM-Ikjyxi-Niwizw Hx Patient Social History Alcohol Use: Occasionally Uses Recreational Drug Use: No Smoking Status: Former Smoker Former smoker/When Quit: Jan 12, 1986 Type Used: Cigarettes, Smokeless Tobacco Recent Foreign Travel: No Recent Infectious Disease Expo: No Hospitalization with Isolation: Denies Physical Abuse Screen: No Sexual Abuse: No Immunizations Up To Date Tetanus Booster (TDap): Unknown Date of Pneumonia Vaccine: Aug 08, 2013 Past Medical History PMH As described under Assessment. Family Medical History Family Medical History: He reports his father had a heart attack in his late 60's. He reports his mothe had DM. Family History: Diabetes mellitus 19 MOTHER PATERNAL GRANDFATHER Neoplasm 19 FATHER (THROAT CANCER-SMOKER) Allergies and Home Medications Allergies Coded Allergies: Penicillins (Verified Allergy, Unknown, 01/31/16) Home Medications Aripiprazole 15 Mg Tablet, 15 MG PO DAILY, (Reported) Colchicine 0.6 Mg Tablet, 0.6 MG PO BID PRN for GOUT FLARE, (Reported) Febuxostat 80 Mg Tablet, 80 MG PO DAILY, (Reported) Ibuprofen 800 Mg Tablet, 800 MG PO TID PRN for PAIN-MILD, (Reported) Lisinopril 10 Mg Tablet, 10 MG PO DAILY, (Reported) Mag Hydrox/Al Hydrox/Simeth 30 Ml Oral.susp, 30 ML PO HS PRN for INDIGESTION, ( Reported) Metformin HCl 500 Mg Tablet, 500 MG PO BID, (Reported) Potassium Chloride 10 Meq Tablet.er, 10 MEQ PO BID, (Reported) LAST FILLED #60 01-24-18 Pravastatin Sodium 10 Mg Tablet, 10 MG PO HS, (Reported) Patient Home Medication List Home Medication List Reviewed: Yes Physical Exam-Cardiology Physical Exam Vital Signs/I&O 06/01/18 06/01/18 06/02/18 06/02/18 19:50 20:30 00:14 01:00 Temp 98.2 98.7 Pulse 95 100 94 102 Resp 18 18 B/P (MAP) 124/78 (93) 142/72 (95) Pulse Ox 95 94 O2 Delivery Room Air Room Air 06/02/18 04:20 Temp 98.6 Pulse 98 Resp 20 B/P (MAP) 141/72 (95) Pulse Ox 95 O2 Delivery Room Air 06/02/18 00:00 Intake Total 1280 ml Output Total 815 ml Balance 465 ml Capillary Refill : Less Than 3 SecondsLess Than 3 Seconds Constitutional: AAO x 3, well-developed, well-nourished HEENT: PERRL, hearing is well preserved, oral hygience is good Neck: No carotid bruit; carotid pulses are 2 + bilaterally Respiratory: No accessory muscle use, No respiratory distress; chest expansion is symmetric, chest is bilaterally symmetric, lungs clear to auscultation Cardiovascular: regular rate-rhythm; No JVD; S1 and S2 Gastrointestinal: No tender; soft, round Extremities: significant edema (mild to mod bilat LE edema) Data Review Labs Laboratory Tests 06/01/18 09:49: White Blood Count 10.0, Red Blood Count 4.87, Hemoglobin 11.3L, Hematocrit 35L, Mean Corpuscular Volume 72L, Mean Corpuscular Hemoglobin 23L, Mean Corpuscular Hemoglobin Concent 32, Red Cell Distribution Width 15.7H, Platelet Count 549H, Mean Platelet Volume 8.9, Neutrophils (%) (Auto) 59, Lymphocytes (%) (Auto) 34, Monocytes (%) (Auto) 5, Eosinophils (%) (Auto) 2, Basophils (%) (Auto) 0, Neutrophils # (Auto) 5.9, Lymphocytes # (Auto) 3.3, Monocytes # (Auto) 0.5, Eosinophils # (Auto) 0.2, Basophils # (Auto) 0.0, Prothrombin Time 13.7, INR Comment 1.1, Activated Partial Thromboplast Time 39H, Sodium Level 141, Potassium Level 3.3L, Chloride Level 98, Carbon Dioxide Level 25, Anion Gap 18H , Blood Urea Nitrogen 11, Creatinine 1.39H, Estimat Glomerular Filtration Rate > 60, BUN/Creatinine Ratio 8, Glucose Level 146H, Calcium Level 10.3H, Corrected Calcium 10.3H, Magnesium Level 1.5L, Total Bilirubin 0.8, Aspartate Amino Transf (AST/SGOT) 15, Alanine Aminotransferase (ALT/SGPT) 15, Alkaline Phosphatase 80, Myoglobin 50.0, Troponin I < 0.30, Total Protein 7.9, Albumin 4.0 06/01/18 14:05: Troponin I < 0.30 06/02/18 05:47: Troponin I < 0.30, Triglycerides Level 104, Cholesterol Level 156, LDL Cholesterol Direct 103, VLDL Cholesterol 21, HDL Cholesterol 33L, Thyroid Stimulating Hormone (TSH) 2.02 Radiology NAME: JAZLYN RIVERA [facility] REC#: [id number] PT STATUS: REG ER : 1965 PHYSICIAN: GHADA BOTELLO MD ADMIT DATE: 06/01/18/ER Draft Date of Exam:06/01/18 CHEST 1 VIEW, AP/PA ONLY Indication: Chest pain Portable chest 10:05 AM Heart size and pulmonary vascularity are normal. Lungs are clear. There are no effusions or pneumothoraces. Impression: Negative chest. Dictated on workstation # [id number] Dict: 06/01/18 1024 Trans: 06/01/18 1025 [facility] [id number] Interpreted by: WHITNEY TANNER MD Electronically signed by: NAME: JAZLYN RIVERA [facility] REC#: [id number] PT STATUS: REG ER : 1965 PHYSICIAN: GHADA BOTELLO MD ADMIT DATE: 06/01/18/ER Signed Date of Exam: 06/01/18 CT ANGIO CHEST W PROCEDURE: CT angiography of the chest with contrast. TECHNIQUE: Multiple contiguous axial images were obtained through the chest after uneventful bolus administration of intravenous contrast. 2D reconstructed CTA MIP acquisitions were also performed. INDICATION: Chest pain with dizziness. COMPARISON: No previous for direct comparison. Study interpreted in correlation with overlapped images obtained at the time of an abdominal CT 05/22/2016 and correlated with recent, as well as two-year old, chest x-rays. FINDINGS: There is a mass which is inseparable from the caudal pole of the left thyroid lobe extending retrosternal into the left superior mediastinum resulting in mild rightward deviation of the trachea. Tracheal mass effect and mediastinal prominence are unchanged to the comparison radiographs. 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 It is partially calcified and laterally displaces and alters the normal contour of the left innominate vein without its obstruction. In axial plane, this mass measures 5.3 x 4 cm. No other mediastinal abnormality. There is no hilar mass. Pulmonary arterial branches are patent. No filling defect. No PE. The aorta is patent and nonaneurysmal. No pleural or pericardial effusion. No lung mass. There is some very mild linear scarring or atelectatic changes perifissural right lower lobe. Visualized upper abdomen nonacute. IMPRESSION: 1. Negative for PE or acute aortic disease. 2. 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 3. No acute appearing abnormality. 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 Per CTA of the chest on 06-01-18 No evidence of PE per CTA of chest on 06-01-18 Generalize weakness - progressive - following right ankle fracture of late March 2018 DM 2 CKD stage 2 Electrolyte abnormalities Discussion and Recomendations No evidence of ACS thus far Mass seen on CTA of the chest followed by medical services Replace electrolytes Continue current medication regimen Management of DM 2 per medical services Monitor lab closely Further recs will be based on his hospital course D/t prolonged inactivity and bilat LE edema advise venous duplex to r/o DVT Lovenox for DVT prophylaxis PT as per medical services Clinical Quality Measures DVT/VTE Risk/Contraindication: Risk Factor Score Per Nursin RFS Level Per Nursing on Admit: 2=Moderate TYLER HERNANDEZ Jun 01, 2018 16:12
[2018-06-01] MEDS: ENOXAPARIN 60 MG/0.6 ML (LOVENOX) SYR SC SCH (17:14)
--- NOTE | 2018-06-01 20:51 | Consultation-Cardiology ---
HPI-Cardiology Cardiology Consultation: Date of Consultation 06/01/18 Time Seen by a Provider: 20:50 Date of Admission Attending Physician Wen Stokes MD Admitting Physician Ryley Jones MD Consulting Physician REY PERERA MD, MA, FACP, FACC, FSCAI, CCDS HPI: Chief Complaint: CC: Chest pain HPI: Mr. Rivera is a 52 year old male admitted to [facility] from the ED. He reports he fractured his right ankle in late March. He reports he did not have any surgical repair. He states he was evaluated and told to not bear weight on that foot and it would heal. He states he was using his left leg to bear all his weight and then he developed gout. He reports he has has been on oral steroids d/t gout flair up. He states he has "barely been able to get out of bed" for approx the last month and a half. He states every time he would get out of bed his legs would become weak and start to shake. This has been progressively worse. He reports his told him this morning he needed to come to the ED. He states he then stood up at the side of his bed became dizzy and started to have localized left sided chest pressure which persisted for approx 30 minutes and then gradually resolved. He denies any SOB, palpitations , syncope or near syncope. He reports bilat LE swelling. Review of Systems-Cardiology Review of Systems Constitutional: No chills, No fever Eyes: No vision change Ears/Nose/Throat: No epistaxis, No nasal drainage, No recent hearing loss Respiratory: As described under HPI Cardiovascular: As described under HPI Gastrointestinal: No constipation, No diarrhea, No nausea, No vomiting Genitourinary: No dysuria, No hematuria Musculoskeletal: As describe under HPI Skin: No rash, No ulcerations Psychiatric/Neurological: No seizure, No focal weakness, No syncope Hematologic: No bleeding abnormalities KIN-Wlanoi-Jfnxmt Hx Patient Social History Alcohol Use: Occasionally Uses Recreational Drug Use: No Smoking Status: Former Smoker Former smoker/When Quit: Jan 12, 1986 Type Used: Cigarettes, Smokeless Tobacco Recent Foreign Travel: No Recent Infectious Disease Expo: No Hospitalization with Isolation: Denies Physical Abuse Screen: No Sexual Abuse: No Immunizations Up To Date Tetanus Booster (TDap): Unknown Date of Pneumonia Vaccine: Aug 08, 2013 Past Medical History PMH As described under Assessment. Family Medical History Family Medical History: He reports his father had a heart attack in his late 60's. He reports his mothe had DM. Family History: Diabetes mellitus 19 MOTHER PATERNAL GRANDFATHER Neoplasm 19 FATHER (THROAT CANCER-SMOKER) Allergies and Home Medications Allergies Coded Allergies: Penicillins (Verified Allergy, Unknown, 01/31/16) Home Medications Aripiprazole 15 Mg Tablet, 15 MG PO DAILY, (Reported) Colchicine 0.6 Mg Tablet, 0.6 MG PO BID PRN for GOUT FLARE, (Reported) Febuxostat 80 Mg Tablet, 80 MG PO DAILY, (Reported) Ibuprofen 800 Mg Tablet, 800 MG PO TID PRN for PAIN-MILD, (Reported) Lisinopril 10 Mg Tablet, 10 MG PO DAILY, (Reported) Mag Hydrox/Al Hydrox/Simeth 30 Ml Oral.susp, 30 ML PO HS PRN for INDIGESTION, ( Reported) Metformin HCl 500 Mg Tablet, 500 MG PO BID, (Reported) Potassium Chloride 10 Meq Tablet.er, 10 MEQ PO BID, (Reported) LAST FILLED #60 01-24-18 Pravastatin Sodium 10 Mg Tablet, 10 MG PO HS, (Reported) Patient Home Medication List Home Medication List Reviewed: Yes Physical Exam-Cardiology Physical Exam Vital Signs/I&O 06/01/18 06/01/18 06/01/18 06/01/18 09:41 13:10 13:45 13:45 Temp 98.8 Pulse 108 98 103 Resp 20 20 20 B/P (MAP) 155/109 (124) 150/88 (108) 130/90 (103) Pulse Ox 98 95 100 99 O2 Delivery Room Air Room Air Room Air Room Air 06/01/18 06/01/18 06/01/18 06/01/18 14:00 14:25 14:50 15:00 Temp 97.5 97.6 98.0 97.8 Pulse 92 95 97 97 Resp 18 20 18 18 B/P (MAP) 138/83 (101) 149/89 (109) 160/101 (120) 139/90 (106) Pulse Ox 100 99 95 95 O2 Delivery Room Air Room Air Room Air Room Air 06/01/18 06/01/18 16:00 19:50 Temp 97.6 98.2 Pulse 94 95 Resp 18 18 B/P (MAP) 145/83 (103) 124/78 (93) Pulse Ox 99 95 O2 Delivery Room Air Room Air Capillary Refill : Less Than 3 SecondsLess Than 3 Seconds Constitutional: AAO x 3, well-developed, well-nourished HEENT: PERRL, hearing is well preserved, oral hygience is good Neck: No carotid bruit; carotid pulses are 2 + bilaterally Respiratory: No accessory muscle use, No respiratory distress; chest expansion is symmetric, chest is bilaterally symmetric, lungs clear to auscultation Cardiovascular: regular rate-rhythm; No JVD; S1 and S2 Gastrointestinal: No tender; soft, round Extremities: significant edema (mild to mod bilat LE edema) Data Review Labs Laboratory Tests 06/01/18 09:49: White Blood Count 10.0, Red Blood Count 4.87, Hemoglobin 11.3L, Hematocrit 35L, Mean Corpuscular Volume 72L, Mean Corpuscular Hemoglobin 23L, Mean Corpuscular Hemoglobin Concent 32, Red Cell Distribution Width 15.7H, Platelet Count 549H, Mean Platelet Volume 8.9, Neutrophils (%) (Auto) 59, Lymphocytes (%) (Auto) 34, Monocytes (%) (Auto) 5, Eosinophils (%) (Auto) 2, Basophils (%) (Auto) 0, Neutrophils # (Auto) 5.9, Lymphocytes # (Auto) 3.3, Monocytes # (Auto) 0.5, Eosinophils # (Auto) 0.2, Basophils # (Auto) 0.0, Prothrombin Time 13.7, INR Comment 1.1, Activated Partial Thromboplast Time 39H, Sodium Level 141, Potassium Level 3.3L, Chloride Level 98, Carbon Dioxide Level 25, Anion Gap 18H , Blood Urea Nitrogen 11, Creatinine 1.39H, Estimat Glomerular Filtration Rate > 60, BUN/Creatinine Ratio 8, Glucose Level 146H, Calcium Level 10.3H, Corrected Calcium 10.3H, Magnesium Level 1.5L, Total Bilirubin 0.8, Aspartate Amino Transf (AST/SGOT) 15, Alanine Aminotransferase (ALT/SGPT) 15, Alkaline Phosphatase 80, Myoglobin 50.0, Troponin I < 0.30, Total Protein 7.9, Albumin 4.0 06/01/18 14:05: Troponin I < 0.30 A/P-Cardiology Assessment/Admission Diagnosis Episode of chest pain of undetermined etiology 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 Per CTA of the chest on 06-01-18 No evidence of PE per CTA of chest on 06-01-18 GeneralizeD weakness - progressive - following right ankle fracture of late March 2018 DM 2 CKD stage 2 Electrolyte abnormalities Discussion and Recomendations No evidence of ACS thus far Mass seen on CTA of the chest followed by medical services Replace electrolytes Continue current medication regimen Management of DM 2 per medical services Monitor lab closely Further recs will be based on his hospital course D/t prolonged inactivity and bilat LE edema advise venous duplex to r/o DVT Lovenox for DVT prophylaxis PT as per medical services Clinical Quality Measures DVT/VTE Risk/Contraindication: Risk Factor Score Per Nursin RFS Level Per Nursing on Admit: 2=Moderate REY PERERA MD FACP FACC CCDS Jun 01, 2018 20:51
[2018-06-02 00:14] VITALS: BP 142/72
[2018-06-02] MEDS: NS W/KCL 20 MEQ/L 1,000 ML IV SCH ×4 (00:58→18:04)
[2018-06-02 04:20] VITALS: BP 141/72
[2018-06-02] MEDS: ENOXAPARIN 60 MG/0.6 ML (LOVENOX) SYR SC SCH ×2 (04:31→16:16)
[2018-06-02 06:26] LABS: CHOLESTEROL 156 MG/DL (< 200); HDL CHOLESTEROL 33 MG/DL (40-60); TRIGLYCERIDES 104 MG/DL (<150); VLDL CHOLESTEROL 21 MG/DL (5-40)
[2018-06-02 06:46] LABS: CARDIAC PROFILE 2 < 0.30 NG/ML (<0.30)
[2018-06-02 08:00] VITALS: BP 144/73
[2018-06-02] MEDS: ASPIRIN E.C. 81 MG (ECOTRIN) TAB PO SCH (08:23)
--- NOTE | 2018-06-02 08:37 | History & Physicial (CHS) ---
PEDRO DAMICO MEDICAL STUDENT 06/02/18 0837: HPI History of Present Illness: 52 year old male with Hx of HTN, DM, Gout, arthritis, DIANE, PRAVIN was admitted from the ED for chest pain and dizziness. Pt states he has been mostly non- weightbearing since March. He states that yesterday when he got up he became dizzy/lightheaded and developed some chest pain that lasted ~30 minutes. Pt states that he has had previous episodes of dizziness in the past and has broken out in cold sweats and states these were attributed to "panic attacks." Pt states that nothing made his chest pain during the episode better or worse and that he did not take any medication at the time of the CP. Pt states that the chest pain did not radiate anywhere and was more on the left side of his chest. Pt states he was short of breath with the episode but is not currently. Pt denies fever, chills, N/V/D, abd pain. Attending Physician Abhay Abreu MD PCP Edgardo Bates MD Consult Date of Admission Jun 01, 2018 at 11:54 Home Medications Home Medications Reviewed patient Home Medication Reconciliation performed by pharmacy medication reconciliations education technician and/or nursing. Patients Allergies have been reviewed. Allergies Coded Allergies: Penicillins (Verified Allergy, Unknown, 01/31/16) [id number]-Cyqush Hx Patient Social History Alcohol Use: Occasionally Uses Recreational Drug Use: No Smoking Status: Former Smoker Former smoker/When Quit: Jan 12, 1986 Type Used: Cigarettes, Smokeless Tobacco Recent Foreign Travel: No Contact w/other who traveled: No Recent Hopitalizations: No Recent Infectious Disease Expo: No Physical Abuse Screen: No Sexual Abuse: No Immunizations Up To Date Tetanus Booster (TDap): Unknown Date of Pneumonia Vaccine: Aug 08, 2013 Family Medical History Significant Family History: No Pertinent Family Hx Family History: Diabetes mellitus 19 MOTHER PATERNAL GRANDFATHER Neoplasm 19 FATHER (THROAT CANCER-SMOKER) Review of Systems (CHC) Constitutional: dizziness; No fever Respiratory: No cough, No hemoptysis; short of breath Cardiovascular: chest pain Gastrointestinal: No abdominal pain, No diarrhea Reviewed Test Results Reviewed Test Results Lab Laboratory Tests Test 06/01/18 09:49 06/01/18 14:05 06/02/18 05:47 Range/Units White Blood Count 10.0 4.3-11.0 10^3/uL Red Blood Count 4.87 4.35-5.85 10^6/uL Hemoglobin 11.3 L 13.3-17.7 G/DL Hematocrit 35 L 40-54 % Mean Corpuscular Volume 72 L 80-99 FL Mean Corpuscular Hemoglobin 23 L 25-34 PG Mean Corpuscular Hemoglobin Concent 32 32-36 G/DL Red Cell Distribution Width 15.7 H 10.0-14.5 % Platelet Count 549 H 130-400 10^3/uL Mean Platelet Volume 8.9 7.4-10.4 FL Neutrophils (%) (Auto) 59 42-75 % Lymphocytes (%) (Auto) 34 12-44 % Monocytes (%) (Auto) 5 0-12 % Eosinophils (%) (Auto) 2 0-10 % Basophils (%) (Auto) 0 0-10 % Neutrophils # (Auto) 5.9 1.8-7.8 X 10^3 Lymphocytes # (Auto) 3.3 1.0-4.0 X 10^3 Monocytes # (Auto) 0.5 0.0-1.0 X 10^3 Eosinophils # (Auto) 0.2 0.0-0.3 10^3/uL Basophils # (Auto) 0.0 0.0-0.1 10^3/uL Prothrombin Time 13.7 12.2-14.7 SEC INR Comment 1.1 0.8-1.4 Activated Partial Thromboplast Time 39 H 24-35 SEC Sodium Level 141 135-145 MMOL/L Potassium Level 3.3 L 3.6-5.0 MMOL/L Chloride Level 98 98-107 MMOL/L Carbon Dioxide Level 25 21-32 MMOL/L Anion Gap 18 H 5-14 MMOL/L Blood Urea Nitrogen 11 7-18 MG/DL Creatinine 1.39 H 0.60-1.30 MG/DL Estimat Glomerular Filtration Rate > 60 BUN/Creatinine Ratio 8 Glucose Level 146 H 70-105 MG/DL Calcium Level 10.3 H 8.5-10.1 MG/DL Corrected Calcium 10.3 H 8.5-10.1 MG/DL Magnesium Level 1.5 L 1.8-2.4 MG/DL Total Bilirubin 0.8 0.1-1.0 MG/DL Aspartate Amino Transf (AST/SGOT) 15 5-34 U/L Alanine Aminotransferase (ALT/SGPT) 15 0-55 U/L Alkaline Phosphatase 80 40-136 U/L Myoglobin 50.0 10.0-92.0 NG/ML Troponin I < 0.30 < 0.30 < 0.30 <0.30 NG/ML Total Protein 7.9 6.4-8.2 GM/DL Albumin 4.0 3.2-4.5 GM/DL Triglycerides Level 104 <150 MG/DL Cholesterol Level 156 < 200 MG/DL LDL Cholesterol Direct 103 1-129 MG/DL VLDL Cholesterol 21 5-40 MG/DL HDL Cholesterol 33 L 40-60 MG/DL Thyroid Stimulating Hormone (TSH) 2.02 0.35-4.94 UIU/ML Radiology NAME: JAZLYN BARRIGA [facility] REC#: [id number] PT STATUS: REG ER : 1965 PHYSICIAN: GHADA BOTELLO MD ADMIT DATE: 06/01/18/ER Draft Date of Exam:06/01/18 CHEST 1 VIEW, AP/PA ONLY Indication: Chest pain Portable chest 10:05 AM Heart size and pulmonary vascularity are normal. Lungs are clear. There are no effusions or pneumothoraces. Impression: Negative chest. Dictated on workstation # [id number] Dict: 06/01/18 1024 Trans: 06/01/18 1025 CV [id number] Interpreted by: WHITNEY TANNER MD Electronically signed by: NAME: JAZLYN BARRIGA [facility] REC#: [id number] PT STATUS: REG ER : 1965 PHYSICIAN: GHADA BOTELLO MD ADMIT DATE: 06/01/18/ER Signed Date of Exam: 06/01/18 CT ANGIO CHEST W PROCEDURE: CT angiography of the chest with contrast. TECHNIQUE: Multiple contiguous axial images were obtained through the chest after uneventful bolus administration of intravenous contrast. 2D reconstructed CTA MIP acquisitions were also performed. INDICATION: Chest pain with dizziness. COMPARISON: No previous for direct comparison. Study interpreted in correlation with overlapped images obtained at the time of an abdominal CT 05/22/2016 and correlated with recent, as well as two-year old, chest x-rays. FINDINGS: There is a mass which is inseparable from the caudal pole of the left thyroid lobe extending retrosternal into the left superior mediastinum resulting in mild rightward deviation of the trachea. Tracheal mass effect and mediastinal prominence are unchanged to the comparison radiographs. 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 It is partially calcified and laterally displaces and alters the normal contour of the left innominate vein without its obstruction. In axial plane, this mass measures 5.3 x 4 cm. No other mediastinal abnormality. There is no hilar mass. Pulmonary arterial branches are patent. No filling defect. No PE. The aorta is patent and nonaneurysmal. No pleural or pericardial effusion. No lung mass. There is some very mild linear scarring or atelectatic changes perifissural right lower lobe. Visualized upper abdomen nonacute. IMPRESSION: 1. Negative for PE or acute aortic disease. 2. 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 3. No acute appearing abnormality. Dictated by: Dictated on workstation # [id number] Dict: 06/01/18 1134 Trans: 06/01/18 1208 Interpreted by: ISACC HALLMAN Electronically signed by: ISACC HALLMAN 06/01/18 1208 Physical Exam-(CHC) Physical Exam Vital Signs VS - Last 72 Hours, by Label 06/01/18 06/01/18 06/01/18 06/01/18 09:41 13:10 13:45 13:45 Temp 98.8 Pulse 108 98 103 Resp 20 20 20 B/P (MAP) 155/109 (124) 150/88 (108) 130/90 (103) Pulse Ox 98 95 100 99 O2 Delivery Room Air Room Air Room Air Room Air 06/01/18 06/01/18 06/01/18 06/01/18 14:00 14:25 14:50 15:00 Temp 97.5 97.6 98.0 97.8 Pulse 92 95 97 97 Resp 18 B/P (MAP) 138/83 (101) 149/89 (109) 160/101 (120) 139/90 (106) Pulse Ox 100 99 95 95 O2 Delivery Room Air Room Air Room Air Room Air 06/01/18 06/01/18 06/01/18 06/02/18 16:00 19:50 20:30 00:14 Temp 97.6 98.2 98.7 Pulse 94 95 100 94 Resp 18 B/P (MAP) 145/83 (103) 124/78 (93) 142/72 (95) Pulse Ox 99 95 94 O2 Delivery Room Air Room Air Room Air 06/02/18 06/02/18 01:00 04:20 Temp 98.6 Pulse 102 98 Resp 20 B/P (MAP) 141/72 (95) Pulse Ox 95 O2 Delivery Room Air Capillary Refill : Less Than 3 SecondsLess Than 3 Seconds General Appearance: WD/WN, no apparent distress Eyes: Bilateral Eye EOMI Neck: full range of motion Respiratory: chest non-tender, lungs clear, normal breath sounds, no respiratory distress Cardiovascular: regular rate, rhythm, no murmur Gastrointestinal: normal bowel sounds, non tender, soft Neurologic/Psychiatric: alert, normal mood/affect Assessment/Plan Assessment/Plan Admission Status: Observation Reason for Inpatient Admission: Chest pain - consult cardiology for chest pain rule out Hx of HTN - continue on home meds - continue on home meds Hx of DM - continue on home meds Clinical Quality Measures DVT/VTE Risk/Contraindication: Risk Factor Score Per Nursin RFS Level Per Nursing on Admit: 2=Moderate Copy Copies To 1: EDGARDO BATES MD,ABHAY Lee MD 06/02/182: HPI History of Present Illness: Reviewed above HPI with patient. Previously broke ankle and essentially been sitting on couch with minimal activity since then. Denies chest pain this AM. Source: patient, old records Exam Limitations: no limitations Date seen by provider: Jun 02, 2018 Time Seen by Provider: 12:03 Home Medications Allergies Coded Allergies: Penicillins (Verified Allergy, Unknown, 01/31/16) PAW-Kcmoow-Ohzvia Hx Patient Social History Living Status: Lives at home with Past Medical History Gout HTN Debility Family Medical History Family History: Diabetes mellitus 19 MOTHER PATERNAL GRANDFATHER Neoplasm 19 FATHER (THROAT CANCER-SMOKER) Review of Systems (CHC) Constitutional: No chills; dizziness (with ambulation) EENTM: no symptoms reported Respiratory: short of breath Cardiovascular: chest pain (resolved this AM) Gastrointestinal: no symptoms reported Genitourinary: no symptoms reported Musculoskeletal: joint swelling, muscle stiffness Skin: no symptoms reported Psychiatric/Neurological: No Symptoms Reported Physical Exam-([facility]) Physical Exam General Appearance: WD/WN, no apparent distress HEENT: PERRL/EOMI Neck: full range of motion, thyromegaly, other (unable to palpate nodule) Respiratory: chest non-tender, lungs clear, normal breath sounds, no respiratory distress, no accessory muscle use Cardiovascular: normal peripheral pulses, regular rate, rhythm, no murmur Gastrointestinal: normal bowel sounds, non tender, soft Extremities: no pedal edema, no calf tenderness, normal capillary refill, other (chronic arthritic changes in hand and feet due to gout) Neurologic/Psychiatric: trust and estates paralegal II-XII nml as tested, no motor/sensory deficits, alert, normal mood/affect, oriented x 3 Skin: normal color, warm/dry Lymphatic: no adenopathy Assessment/Plan Assessment/Plan Admission Status: Observation (1) Atypical chest pain Status: Acute Assessment & Plan: - Resolved this AM, Cardiology consulted (2) Debility Status: Acute Assessment & Plan: - IRF evaluation (3) Thyroid nodule Status: Acute Assessment & Plan: - Thyroid US ordered today, normal TSH (4) BMI 50.0-59.9, adult Status: Chronic (5) Gout Status: Chronic Assessment & Plan: - Continue home meds Qualifiers: Qualified Codes: 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
--- NOTE | 2018-06-02 09:55 | Physical Therapy Daily Note ---
PT Daily Note-Current Subjective Patient initially declined OOB activity, however, PT highly encouraged him to participate. Pain Numeric Pain Scale: 0-No Pain Location: No Pain Reported Mental Status Patient Orientation: Normal For Age Attachments: IV Transfers Therapy Code Descriptions/Definitions Functional [place] Measure: 0=Not Assessed/NA 4=Minimal Assistance 1=Total Assistance 5=Supervision or Setup 2=Maximal Assistance 6=Modified [place] 3=Moderate Assistance 7=Complete [place] Therapy Quality Codes: 6 Independent with activity with or without an assistive device 5 Patient requires set up or clean up by helper. Patient completes activity by themselves 4 Supervision or touching assist (CGA). [place] provide cues , steadying assist 3 The helper provides less than half the effort to complete the activity 2 The helper provides more than half the effort to complete the activity 1 Dependent. The helper does all the effort to complete an activity 7 Patient refused to complete or attempt activity 9 The patient did not perform the activity before the current illness or injury 88 Not attempted due to Medical conditions or safety concerns Transfers (B, C, W/C) (FIM): 2 Scootin Rollin Supine to/from Sit: 5 Sit to/from Stand: 5 Bed to/from Chair: 2 max assist x 2 with sit to stand x 4 sets with patient demonstrating difficulty with foot flat due to decreased dorsiflexion bilaterally and bilateral LE weakness. Patient able to take 3 steps x 2 sets with max assist x 2 and FWW and trunk flexed posture Weight Bearing Right Lower Extremity: Right Full Weight Bearing Left Lower Extremity: Left Full Weight Bearing Exercises Seated Therapy Exercises: Ankle pumps (stretching), Long arc quads, Hip flexion Seated Reps: 30 (2 sets) Assessment Patient instructed to perform seated bilateral LE exercises 30 reps every 30 min x 3 hours 2/day. Patient voices understanding. PT L[employer]er Goals [facility] Goals PT [facility] Goals Time Frame: Jun 13, 2018 Transfers (B,C,W/C) (FIM): 4 Gait (FIM): 1 Gait distance (FIM): 1=up to 49 ft Distance: 10' Gait Level of Assist: 4 Gait Assistive Device: FWW PT Plan Treatment/Plan Treatment Plan: Continue Plan of Care Treatment Plan: Bed Mobility, Education, Functional Activity Araceli, Functional Strength, Gait, Safety, Therapeutic Exercise, Transfers Treatment Duration: Jun 13, 2018 Frequency: 6 times per week Estimated Hrs Per Day: .5 hour per day Patient and/or Family Agrees t: Yes Time/GCodes Time In: 830 Time Out: 843 Total Billed Treatment Time: 13 Total Billed Treatment 1 visit FA 13 min PT/OT Therapy GCodes Therapy Functional Limitation: Physical Therapy Test(s)/Tool used to determine: Level of Assistance Scale Functional Limitation-Current Charge Code: MOBCUR Modifier: CM Functional Limitation-Goal Charge Code: MOBGOAL Modifier: MURALI BOWENS PT Jun 02, 2018 09:55
--- NOTE | 2018-06-02 10:35 | Progress Note-Cardiology ---
Cardiology SOAP Progress Note Subjective: Sitting up in chair at the bedside. No CP. No c/o dyspnea, palpitations, syncope or near syncope. Objective: I&O/Vital Signs 06/02/18 06/02/18 06/02/18 04:20 07:00 08:00 Temp 98.6 98.2 Pulse 98 77 95 Resp 20 14 B/P (MAP) 141/72 (95) 144/73 (96) Pulse Ox 95 94 O2 Delivery Room Air Room Air 06/02/18 00:00 Intake Total 1280 ml Output Total 815 ml Balance 465 ml Weight (Pounds): 300 Weight (Ounces): 0.0 Weight (Calculated Kilograms): [id number] Constitutional: AAO x 3, well-developed, well-nourished Respiratory: No accessory muscle use, No respiratory distress; chest expansion is symmetric, chest is bilaterally symmetric, lungs clear to auscultation Cardiovascular: regular rate-rhythm; No JVD; S1 and S2 Gastrointestional: No tender; soft, round Extremities: significant edema (mild to mod bilat LE edema) Results/Procedures: Labs Laboratory Tests 06/02/18 05:47: Troponin I < 0.30, Triglycerides Level 104, Cholesterol Level 156, LDL Cholesterol Direct 103, VLDL Cholesterol 21, HDL Cholesterol 33L, Thyroid Stimulating Hormone (TSH) 2.02 A/P: Assessment: Episode of chest pain, likely non-cardiac, etiology undetermined. No evidence of [place]. 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 Per CTA of the chest on 06-01-18 No evidence of DVT on leg venous Doppler. An enlarged lymph node is reported that is to be evaluated and treated by the Med Svce No evidence of PE per CTA of chest on 06-01-18 Generalized weakness - progressive - following right ankle fracture of late March 2018 DM 2 CKD stage 2 Electrolyte abnormalities Plan: No evidence of ACS Mass seen on CTA of the chest followed by medical services Replace electrolytes Continue current medication regimen Management of DM 2 per medical services Monitor lab closely D/t prolonged inactivity and bilat LE edema advise venous duplex to r/o DVT - awaiting PT as per medical services Physician Assessment Physician Assessment No cp. No palp or syncope or shortness of breath at rest. Gen weakness persists. Request regular diet No cp or palp or syncope Lungs: fair to good air entry, diminished at the bases Cor: reg Ext: no c/c A&R * As documented in our note above that I updated (italics) * Change diet to regular per patient request * Management mediastinal mass, noncardiac c/p, DM II, and some lymphadenopathy is with the Med Svce * Ok for d/c from card standpoint * Outpt card f/u is advised after discharge TYLER HERNANDEZ INTERVENTION TEACHER Jun 02, 2018 10:35 REY PERERA MD FACP [facility] Jun 02, 2018 14:50
[2018-06-02 12:00] VITALS: BP 140/70
[2018-06-02] MEDS ORDERED: ANTACID SUSP 30 ML UDC (MYLANTA) PO PRN (14:15)
[2018-06-02] MEDS ORDERED: COLCHICINE 0.6 MG PO PRN (14:15)
[2018-06-02] MEDS ORDERED: IBUPROFEN 800 MG PO PRN (14:15)
--- NOTE | 2018-06-02 14:24 | Diagnostic Imaging Report ---
PROCEDURE: US Venous Lower Ext Michael. TECHNIQUE: Multiple real-time grayscale images were obtained over the lower extremities in various projections, bilaterally. Additional duplex Doppler and color Doppler images were also obtained. INDICATION: Leg pain and swelling. The previous bilateral lower extremity venous Doppler exam of 11/21/2017 failed to show any sign of a deep venous embolus. On this exam there is still generally good blood flow and compressibility at all levels of the deep venous system of each lower extremity. There is still no evidence for deep venous thrombosis. During the course of the exam our sonologist did identify a 3.7 x 0.8 CM mass near the greater saphenous vein on the left.. This has the typical appearance of a lymph node although it is enlarged. Even so, this finding is nonspecific. IMPRESSION: 1. There is still no evidence for a deep venous thrombosis of either lower extremity. 2. There does appear to be enlarged nonspecific lymph node in the left greater saphenous region. Dictated by: Dictated on workstation # [id number]
[2018-06-02] MEDS ORDERED: COLCHICINE 0.6 MG (COLCRYS) TABLET PO PRN (14:30)
[2018-06-02] MEDS ORDERED: IBUPROFEN 800 MG (MOTRIN) TAB PO PRN (14:30)
--- NOTE | 2018-06-02 14:32 | Diagnostic Imaging Report ---
PROCEDURE: US Thyroid. TECHNIQUE: Multiple real-time grayscale images were obtained of the thyroid in various projections. INDICATION: Neck mass. There are no prior thyroid ultrasound examinations available for comparison. The CTA chest exam performed on 06/01/2018 did suggest a mass inseparable from the caudal pole of the left lobe of the thyroid. This mass measured 5.2 x 5 x 4 cm and extended caudally into the superior mediastinum. On this exam neither the mass in question or the thyroid gland itself were well visualized. In reviewing the CT exam both the thyroid gland and the mass did appear to lie posterior to the clavicles and sternum and this probably accounts for the poor visualization of the thyroid gland and the mass. I do suspect that this mass is most likely a benign process. If previous CT chest exams are available they would be helpful for comparison. If there are no prior studies and further imaging is desired, MRI would be recommended. If the MRI exam is not performed, then a short-term (6 month) followup CT chest exam should obtained. IMPRESSION: Neither the thyroid gland itself nor the mass arising from the inferior pole of the left lower thyroid seen previously are well visualized on this study. Considerations and recommendations as above. Dictated by: Dictated on workstation # [id number]
--- NOTE | 2018-06-02 14:35 | Physical Therapy Daily Note ---
PT Daily Note-Current Subjective Patient agrees to PT. PT discussed ARU and expectations. Patient voices understanding. Pain Numeric Pain Scale: 5-Moderate Pain Location: Right, Left Location Body Site: Ankle Pain Description: Chronic Comment: gout Mental Status Patient Orientation: Normal For Age Transfers Therapy Code Descriptions/Definitions Functional [place] Measure: 0=Not Assessed/NA 4=Minimal Assistance 1=Total Assistance 5=Supervision or Setup 2=Maximal Assistance 6=Modified [place] 3=Moderate Assistance 7=Complete [place] Therapy Quality Codes: 6 Independent with activity with or without an assistive device 5 Patient requires set up or clean up by helper. Patient completes activity by themselves 4 Supervision or touching assist (CGA). [place] provide cues , steadying assist 3 The helper provides less than half the effort to complete the activity 2 The helper provides more than half the effort to complete the activity 1 Dependent. The helper does all the effort to complete an activity 7 Patient refused to complete or attempt activity 9 The patient did not perform the activity before the current illness or injury 88 Not attempted due to Medical conditions or safety concerns Transfers (B, C, W/C) (FIM): 2 Scootin Rollin Supine to/from Sit: 5 Sit to/from Stand: 5 assist x 2 with sit to stand from elevated bed and use of gait belt to FWW. Patient able to side step x 4 steps to right. Patient is able to maintain standing position with FWW and minimal assist to stretch bilateral gastrocsoleus musculature to improve dorsiflexion bilaterally. Weight Bearing Right Lower Extremity: Right Full Weight Bearing Left Lower Extremity: Left Full Weight Bearing Exercises Supine Ex: Ankle pumps, Quad Set, Heel Slides, Straight leg raise Supine Reps: 15 Seated Therapy Exercises: Long arc quads Seated Reps: 15 Assessment Patient does demonstrate increase in anxiety with increase activity due to inactivity PLOF. PT and patient discussed expectations in ARU and both agree he could benefit if he participates. ARU staff notified. PT [employer] Goals Nursing Home Goals PT Nursing Home Goals Time Frame: Jun 13, 2018 Transfers (B,C,W/C) (FIM): 4 Gait (FIM): 1 Gait distance (FIM): 1=up to 49 ft Distance: 10' Gait Level of Assist: 4 Gait Assistive Device: FWW PT Plan Treatment/Plan Treatment Plan: Continue Plan of Care Treatment Plan: Bed Mobility, Education, Functional Activity Araceli, Functional Strength, Gait, Safety, Therapeutic Exercise, Transfers Treatment Duration: Jun 13, 2018 Frequency: 6 times per week Estimated Hrs Per Day: .5 hour per day Patient and/or Family Agrees t: Yes Time/GCodes Time In: 1330 Time Out: 1355 Total Billed Treatment Time: 25 Total Billed Treatment 1 visit FA 15 min EX 10 min PT/OT Therapy GCodes Therapy Functional Limitation: Physical Therapy Test(s)/Tool used to determine: Level of Assistance Scale Functional Limitation-Current Charge Code: JAZ Modifier: GLORIA Functional Limitation-Goal Charge Code: MOBCHRISTOFER Modifier: MURALI BOWENS PT Jun 02, 2018 14:35
[2018-06-02] MEDS ORDERED: ENOXAPARIN 40 MG/0.4 ML (LOVENOX) SYR SC SCH (15:00)
[2018-06-02] MEDS: KCL 10 MEQ TAB (MICRO K) PO SCH (16:16)
[2018-06-02 16:45] VITALS: BP 152/92
[2018-06-02] MEDS ORDERED: PATIENT MAY USE OWN MED,SINGLE MED PO SCH (16:45)
[2018-06-02 19:50] VITALS: BP 137/67
[2018-06-02] MEDS ORDERED: NON-FORMULARY MEDICATION 1 EA EA (Pravastatin Sodium 10 MG) PO SCH (21:00)
[2018-06-02] MEDS ORDERED: NON-FORMULARY MEDICATION 1 EA EA (Metformin HCl 500 MG) PO SCH (21:00)
[2018-06-02] MEDS ORDERED: SIMvastatin 10 MG (ZOCOR) TAB PO SCH (21:00)
[2018-06-03 00:33] VITALS: BP 134/80
[2018-06-03] MEDS: NS W/KCL 20 MEQ/L 1,000 ML IV SCH ×2 (01:55→10:02)
[2018-06-03 04:47] VITALS: BP 135/79
[2018-06-03] MEDS: ENOXAPARIN 60 MG/0.6 ML (LOVENOX) SYR SC SCH (05:45)
[2018-06-03] MEDS: KCL 10 MEQ TAB (MICRO K) PO SCH (06:14)
[2018-06-03 06:35] LABS: BUN/CREATININE RATIO 6; CALCIUM 9.2 MG/DL (8.5-10.1); CARBON DIOXIDE 23 MMOL/L (21-32); CHLORIDE 105 MMOL/L (98-107); CREATININE SERUM 1.15 MG/DL (0.60-1.30); GFR ESTIMATED > 60; GLUCOSE 115 MG/DL (70-105); MAGNESIUM 1.5 MG/DL (1.8-2.4); POTASSIUM 2.9 MMOL/L (3.6-5.0); SODIUM 140 MMOL/L (135-145)
[2018-06-03 08:00] VITALS: BP 148/76
[2018-06-03] MEDS: ASPIRIN E.C. 81 MG (ECOTRIN) TAB PO SCH (08:16)
[2018-06-03] MEDS ORDERED: ARIPIPRAZOLE 15 MG PO SCH (09:00)
[2018-06-03] MEDS ORDERED: lisINopril 10 MG (PRINIVIL) TABLET PO SCH (09:00)
[2018-06-03] MEDS ORDERED: ARIPIPRAZOLE 15 MG (ABILIFY) TAB PO SCH (09:00)
--- NOTE | 2018-06-03 09:45 | Progress Note (SOAP) ---
Subjective Subjective/Events-last exam Pt states he has not had any chest pain or dizziness since yesterday. Pt states he is having a gout flair up in his right knee that started overnight. Pt denies any other complaints Objective Exam Last Set of Vital Signs Vital Signs Date Time Temp Pulse Resp B/P (MAP) Pulse Ox O2 Delivery O2 Flow Rate FiO2 06/03/18 08:00 99.5 98 20 148/76 (100) 94 Room Air Capillary Refill : Less Than 3 SecondsLess Than 3 Seconds I&O Intake and Output 06/03/18 00:00 Intake Total 2490 ml Output Total 1350 ml Balance 1140 ml Intake Oral 1490 ml IV Total 1000 ml Output Urine Total 1350 ml # Voids 1 # Bowel Movements 1 General: Alert, Oriented X3, Cooperative Lungs: Clear to Auscultation Heart: Regular Rate Abdomen: Normal Bowel Sounds, Soft, No Tenderness Extremities: Other (warmth and tenderness to right knee) Results/Procedures Lab Laboratory Tests 06/03/18 05:54: Sodium Level 140, Potassium Level 2.9L, Chloride Level 105, Carbon Dioxide Level 23, Anion Gap 12, Blood Urea Nitrogen 7, Creatinine 1.15, Estimat Glomerular Filtration Rate > 60, BUN/Creatinine Ratio 6, Glucose Level 115H, Calcium Level 9.2, Magnesium Level 1.5L Radiology NAME: JAZLYN BARRIGA [facility] REC#: [id number] PT STATUS: REG ER : 1965 PHYSICIAN: GHADA BOTELLO MD ADMIT DATE: 06/01/18/ER Draft Date of Exam:06/01/18 CHEST 1 VIEW, AP/PA ONLY Indication: Chest pain Portable chest 10:05 AM Heart size and pulmonary vascularity are normal. Lungs are clear. There are no effusions or pneumothoraces. Impression: Negative chest. Dictated on workstation # [id number] Dict: 06/01/18 1024 Trans: 06/01/18 1025 [facility] [id number] Interpreted by: WHITNEY TANNER MD Electronically signed by: NAME: RATNA BARRIGAINGRID Ureña [facility] REC#: [id number] PT STATUS: REG ER : 1965 PHYSICIAN: GHADA BOTELLO MD ADMIT DATE: 06/01/18/ER Signed Date of Exam: 06/01/18 CT ANGIO CHEST W PROCEDURE: CT angiography of the chest with contrast. TECHNIQUE: Multiple contiguous axial images were obtained through the chest after uneventful bolus administration of intravenous contrast. 2D reconstructed CTA MIP acquisitions were also performed. INDICATION: Chest pain with dizziness. COMPARISON: No previous for direct comparison. Study interpreted in correlation with overlapped images obtained at the time of an abdominal CT 05/22/2016 and correlated with recent, as well as two-year old, chest x-rays. FINDINGS: There is a mass which is inseparable from the caudal pole of the left thyroid lobe extending retrosternal into the left superior mediastinum resulting in mild rightward deviation of the trachea. Tracheal mass effect and mediastinal prominence are unchanged to the comparison radiographs. 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 It is partially calcified and laterally displaces and alters the normal contour of the left innominate vein without its obstruction. In axial plane, this mass measures 5.3 x 4 cm. No other mediastinal abnormality. There is no hilar mass. Pulmonary arterial branches are patent. No filling defect. No PE. The aorta is patent and nonaneurysmal. No pleural or pericardial effusion. No lung mass. There is some very mild linear scarring or atelectatic changes perifissural right lower lobe. Visualized upper abdomen nonacute. IMPRESSION: 1. Negative for PE or acute aortic disease. 2. 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 3. No acute appearing abnormality. Dictated by: Dictated on workstation # [id number] Dict: 06/01/18 1134 Trans: 06/01/18 1208 Interpreted by: ISACC HALLMAN Electronically signed by: ISACC HALLMAN 06/01/18 1208 Assessment/Plan Assessment/Plan Assessment & Plan Chest pain Gout Debility Thyroid nodule (1) Atypical chest pain Status: Acute Assessment & Plan: - Resolved this AM, Cardiology consulted (2) Debility Status: Acute Assessment & Plan: - IRF evaluation (3) Thyroid nodule Status: Acute Assessment & Plan: - Thyroid US ordered today, normal TSH (4) BMI 50.0-59.9, adult Status: Chronic (5) Gout Status: Chronic Assessment & Plan: - Continue home meds Qualifiers: Qualified Codes: M1A.0490 - Idiopathic chronic gout, unspecified hand, without tophus (tophi) Clinical Quality Measures Admission Status Admission Status: Observation DVT/VTE Risk/Contraindication: Risk Factor Score Per Nursin RFS Level Per Nursing on Admit: 2=Moderate PEDRO DAMICO MEDICAL STUDENT Jun 03, 2018 09:45
[2018-06-03] MEDS ORDERED: predniSONE 20 MG TAB PO SCH (10:30)
[2018-06-03 12:00] VITALS: BP 161/84
--- NOTE | 2018-06-03 12:15 | Discharge Summary ---
Diagnosis/Chief Complaint Date of Admission Jun 01, 2018 at 13:35 Date of Discharge 06/03/18 Admission Diagnosis Admission Diagnosis Atypical Chest pain Gout Debility Thyroid Nodule Discharge Diagnosis See Below Problems/Diagnosis: (1) Atypical chest pain Assessment & Plan: - Resolved this AM, Cardiology consulted Status: Resolved Resolution Date/Time: 06/02/18 @ 21:16 (2) Debility Assessment & Plan: - IRF evaluation 06/03: admitted to IRF today Status: Acute (3) Thyroid nodule Assessment & Plan: - Thyroid US ordered today, normal TSH Status: Acute (4) BMI 50.0-59.9, adult Status: Chronic (5) Gout Assessment & Plan: - Continue home meds 06/03- patient having pain and warmth in right knee, prednisone burst started today x 5 days Qualifiers: Qualified Codes: M1A.0490 - Idiopathic chronic gout, unspecified hand, without tophus (tophi) Status: Chronic Chief Complaint/HPI Chief Complaint/HPI Reviewed above HPI with patient. Previously broke ankle and essentially been sitting on couch with minimal activity since then. Denies chest pain this AM. Discharge Summary-Simple/Stand Consultations Discharge Physical Examination Allergies: Coded Allergies: Penicillins (Verified Allergy, Unknown, 01/31/16) Vitals & I&Os Vital Sign - Last 12Hours Date Time Temp Pulse Resp B/P (MAP) Pulse Ox O2 Delivery O2 Flow Rate FiO2 06/03/18 08:00 99.5 98 20 148/76 (100) 94 Room Air Intake and Output 06/03/18 00:00 Intake Total 1240 ml Output Total 950 ml Balance 290 ml General Appearance: Alert, Oriented X3, Cooperative, No Acute Distress HEENT: Mucous Memb Moist/[place] Respiratory: Clear to Auscultation, Normal Air Movement Cardiovascular: Regular Rate, No Murmurs Abdominal: Normal Bowel Sounds, Soft, No Tenderness, No Masses Extremities: No Edema, Other (Right knee with mild swelling and warmth) Skin: No Rashes, No Breakdown Neuro: Sensation Intact, Cranial Nerves 3-12 NL Psych/Mental Status: Mental Status NL, Mood NL Hospital Course See final discharge diagnosis. Radiology Reviewed NAME: JAZLYN BARRIGA [facility] REC#: [id number] PT STATUS: REG ER : 1965 PHYSICIAN: GHADA BOTELLO MD ADMIT DATE: 06/01/18/ER Draft Date of Exam:06/01/18 CHEST 1 VIEW, AP/PA ONLY Indication: Chest pain Portable chest 10:05 AM Heart size and pulmonary vascularity are normal. Lungs are clear. There are no effusions or pneumothoraces. Impression: Negative chest. Dictated on workstation # [id number] Dict: 06/01/18 1024 Trans: 06/01/18 1025 [facility] [id number] Interpreted by: WHITNEY TANNER MD Electronically signed by: NAME: JAZLYN BARRIGA [facility] REC#: [id number] PT STATUS: REG ER : 1965 PHYSICIAN: GHADA BOTELLO MD ADMIT DATE: 06/01/18/ER Signed Date of Exam: 06/01/18 CT ANGIO CHEST W PROCEDURE: CT angiography of the chest with contrast. TECHNIQUE: Multiple contiguous axial images were obtained through the chest after uneventful bolus administration of intravenous contrast. 2D reconstructed CTA MIP acquisitions were also performed. INDICATION: Chest pain with dizziness. COMPARISON: No previous for direct comparison. Study interpreted in correlation with overlapped images obtained at the time of an abdominal CT 05/22/2016 and correlated with recent, as well as two-year old, chest x-rays. FINDINGS: There is a mass which is inseparable from the caudal pole of the left thyroid lobe extending retrosternal into the left superior mediastinum resulting in mild rightward deviation of the trachea. Tracheal mass effect and mediastinal prominence are unchanged to the comparison radiographs. 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 It is partially calcified and laterally displaces and alters the normal contour of the left innominate vein without its obstruction. In axial plane, this mass measures 5.3 x 4 cm. No other mediastinal abnormality. There is no hilar mass. Pulmonary arterial branches are patent. No filling defect. No PE. The aorta is patent and nonaneurysmal. No pleural or pericardial effusion. No lung mass. There is some very mild linear scarring or atelectatic changes perifissural right lower lobe. Visualized upper abdomen nonacute. IMPRESSION: 1. Negative for PE or acute aortic disease. 2. 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 3. No acute appearing abnormality. Dictated by: Dictated on workstation # [id number] Dict: 06/01/18 1134 Trans: 06/01/18 1208 Interpreted by: ISACC HALLMAN Electronically signed by: ISACC HALLMAN 06/01/18 120 Discussion & Recommendations 52 yo M with recent broken ankle that was admitted due to chest pain. Chest pain resolved on the night of admission. Patient has been most non ambulatory at home since injury. IRF evaluation and he has been accepted and will go to IRF today. Patient having tenderness in right knee with increased swelling and warmth. Started on steroid burst for gouty flare. Discharge Condition at discharge stable Instructions to patient/family Please see electronic discharge instructions given to patient. Discharge Medications Reviewed and agree with Discharge Medication list on patient's Discharge Instruction sheet Clinical Quality Measures DVT/VTE Risk/Contraindication: Risk Factor Score Per Nursin RFS Level Per Nursing on Admit: 2=Moderate Copy Copies To 1: Shreyas STEVENS APRN GAULT, HOLLY R MD Jun 03, 2018 12:15
[2018-06-03] MEDS ORDERED: PRD20T PO (12:21)
[2018-06-03] MEDS ORDERED: ASPI-983 PO (12:21)
--- NOTE | 2018-06-03 12:24 | Discharge Instructions ---
Discharge [facility] Discharge Medications New, Converted or Re-Newed RX: Other New Medications: Aspirin (Aspirin EC) 81 Mg Tablet.dr 81 MG PO DAILY, #30 TAB Prednisone (Prednisone) 20 Mg Tab 50 MG PO DAILY@0700 for 5 Days, #5 TAB Continued Medications: Aripiprazole (Aripiprazole) 15 Mg Tablet 15 MG PO DAILY, TAB Colchicine (Colchicine) 0.6 Mg Tablet 0.6 MG PO BID PRN for GOUT FLARE, TAB Febuxostat (Uloric) 80 Mg Tablet 80 MG PO DAILY, TAB Ibuprofen (Ibu) 800 Mg Tablet 800 MG PO TID PRN for PAIN-MILD, TAB Lisinopril (Lisinopril) 10 Mg Tablet 10 MG PO DAILY, TAB Mag Hydrox/Al Hydrox/Simeth (Mylanta Suspension) 30 Ml Oral.susp 30 ML PO HS PRN for INDIGESTION, EA Metformin HCl (Metformin HCl) 500 Mg Tablet 500 MG PO BID, TAB Potassium Chloride (Potassium Chloride) 10 Meq Tablet.er 10 MEQ PO BID, TAB LAST FILLED #60 8-4-18 Pravastatin Sodium (Pravastatin Sodium) 10 Mg Tablet 10 MG PO HS, TAB Patient Instructions Goal/Follow Up Appt: To IRF Activity & Diet Discharge Diet: ADA Diet Activity as Tolerated: Yes Orders-Post D/C & Referrals Pneu Vac Indicated: Yes Copy Copies To 1: EDGARDO BATES MD, HOLLY R MD Jun 03, 2018 12:24
--- NOTE | 2018-06-03 13:24 | Progress Note-Cardiology ---
Cardiology SOAP Progress Note Subjective: No cp or palp or syncope Shortness of breath, gen weakness, and bilat leg weakness as before Objective: I&O/Vital Signs 06/03/18 06/03/18 06/03/18 04:47 07:00 08:00 Temp 98.9 99.5 Pulse 99 85 98 Resp 18 20 B/P (MAP) 135/79 (97) 148/76 (100) Pulse Ox 96 94 O2 Delivery Room Air Room Air 06/03/18 00:00 Intake Total 1240 ml Output Total 950 ml Balance 290 ml Weight (Pounds): 300 Weight (Ounces): 0.0 Weight (Calculated Kilograms): 136.292740 Constitutional: AAO x 3, well-developed, well-nourished Respiratory: No accessory muscle use, No respiratory distress; chest expansion is symmetric, chest is bilaterally symmetric, lungs clear to auscultation Cardiovascular: regular rate-rhythm; No JVD; S1 and S2 Gastrointestional: No tender; soft, round Extremities: significant edema (mild to mod bilat LE edema) Results/Procedures: Labs Laboratory Tests 06/03/18 05:54: Sodium Level 140, Potassium Level 2.9L, Chloride Level 105, Carbon Dioxide Level 23, Anion Gap 12, Blood Urea Nitrogen 7, Creatinine 1.15, Estimat Glomerular Filtration Rate > 60, BUN/Creatinine Ratio 6, Glucose Level 115H, Calcium Level 9.2, Magnesium Level 1.5L Laboratory Tests 06/03/18 05:54 A/P: Assessment: Episode of chest pain, likely non-cardiac, etiology undetermined. No evidence of AR. 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 Per CTA of the chest on 06-01-18 No evidence of DVT on leg venous Doppler. An enlarged lymph node is reported that [facility] No evidence of PE per CTA of chest on 06-01-18 Generalized weakness - progressive - following right ankle fracture of late March 2018 DM 2 CKD stage 2 Electrolyte abnormalities Plan: Card status appears clinically stable Continue DVT prophylaxis REY Ta MD FACP FAC CCDS Jun 03, 2018 13:24
[2018-06-03] MEDS ORDERED: KCL 20 MEQ TAB (K-DUR) PO NR (13:30)
[2018-06-04] MEDS ORDERED: metFORMIN 500 MG (GLUCOPHAGE) TAB PO SCH (12:00)
== END 2018-06-03 12:21 ==
LOC: EDUNIT# 09:37 → ER 09:38 → UNDOADMOB 11:54 → 4TH 11:54 → UNDODISOB 06-03 12:30
PROVIDERS: ADMIT Family Medicine; ATTEND Family Medicine
DX: R07.89 Other chest pain (principal); R53.81 Other malaise; M10.9 Gout, unspecified; E87.6 Hypokalemia; E83.42 Hypomagnesemia; R60.0 Localized edema; I12.9 Hypertensive chronic kidney disease with stage 1 through stage 4 chronic kidney disease, or unspecified chronic kidney disease; E11.22 Type 2 diabetes mellitus with diabetic chronic kidney disease; N18.2 Chronic kidney disease, stage 2 (mild); E04.1 Nontoxic single thyroid nodule; R42 Dizziness and giddiness; G47.33 Obstructive sleep apnea (adult) (pediatric); E78.00 Pure hypercholesterolemia, unspecified; K21.9 Gastro-esophageal reflux disease without esophagitis; M06.9 Rheumatoid arthritis, unspecified; F32.9 Major depressive disorder, single episode, unspecified; R00.0 Tachycardia, unspecified; Z79.84 Long term (current) use of oral hypoglycemic drugs; Z79.899 Other long term (current) drug therapy; Z87.891 Personal history of nicotine dependence
CPT/HCPCS: 36415; 71045; 71275; 76536; 80048; 80053; 80061; 83735; 83874; 84443; 84484; 85025; 85610; 85730; 93005; 93041; 93970; 96360; G0378

== ENCOUNTER 2018-06-03 13:00 | Inpatient (IN) | payer MEDICARE ==
[~2018-06-03] VITALS: Ht 177.8 cm; Wt 138.8 kg
[2018-06-03 13:00] VITALS: BP 121/90
[~2018-06-03 13:00] MED LIST changes: +ARIP15TA9 PO; +ASPI-983 PO; +COLC0.6T56 PO; +IBUP-850 PO; +METF-397 PO; +PRD20T PO
--- NOTE | 2018-06-03 13:34 | Occupational Therapy Eval ---
OT Evaluation-General/PLF Medical Diagnosis Admission Date June 03, 2018 Medical Diagnosis: Rheumatoid arthritis, gout Onset Date: Jun 01, 2018 Therapy Diagnosis Therapy Diagnosis: decr self care, decr funct mob, decr act stevie, weakness, decr funct use UEs Height/Weight Height (Feet): 5 Height (Inches): 2.00 Weight (Pounds): 300 Weight (Ounces): 0.0 Precautions Precautions/Isolations: Standard Precautions Weight Bear Status Weight Bearing Restriction: Weight Bearing/Tolerated Referral Physician: Lamont Referral Reason: Evaluation/Treatment Medical History Pertinent Medical History: Arthritis, DM, GERD, HTN, Rheumatoid Arthritis, Smoking Additional Medical History Sleep apnea, with CPAP. Gout, lupus. Psychosis, depression. CKD Stage 2 Current History Admitted through ED with chest pain, SOA, ankle pain. Progressive weakness since broke R ankle late March and was supposed to keep his weight off it. Mediastinal mass on thyroid. Reviewed History: Yes Social History Home: Single Level Current Living Status: Spouse (and 11 year old son) Entry Into Home: Stairs With Railing Steps Into Home: 2 ADL-Prior Level of Function Therapy Code Descriptions/Definitions Functional [employer] Measure: 0=Not Assessed/NA 4=Minimal Assistance 1=Total Assistance 5=Supervision or Setup 2=Maximal Assistance 6=Modified [employer] 3=Moderate Assistance 7=Complete [employer] Therapy Quality Codes: 6 Independent with activity with or without an assistive device 5 Patient requires set up or clean up by helper. Patient completes activity by themselves 4 Supervision or touching assist (CGA). [place] provide cues , steadying assist 3 The helper provides less than half the effort to complete the activity 2 The helper provides more than half the effort to complete the activity 1 Dependent. The helper does all the effort to complete an activity 7 Patient refused to complete or attempt activity 9 The patient did not perform the activity before the current illness or injury 88 Not attempted due to Medical conditions or safety concerns Functional Abilities and Goals: Independent: Patient completed the activities by him/herself, with or without an assistive device, with no assistance from a helper. Needed Some Help: Patient needed partial assistance from another person to complete activities. Dependent: A helper completed the activities for the patient. Unknown: Not Applicable: ADL PLOF Comments Pt reported that, before he broke his ankle, he was able to manage all of his basic self care needs except that he needed help putting on his socks and shoes because of back stiffness from back surgery. He helped with cooking and cleaning as he was able and has someone to help with yardwork. He reported no problems managing his medications (except he needed help opening bottles if arthritis was flaring up) or paying bills. He still drives and is disabled - he worked at the [employer] in [place] until 1999. Self Care: Needed Some Help Functional Cognition: Needed Some Help DME/Equipment: Bath Chair, Shower, Tall Toilet OT Current Status Subjective Pt seen in room, up in w/c, agreeable to OT. Pain reported 7-8/10, in his R knee and L shoulder (not described). Appearance Alert, cooperative Mental Status/Objective Patient Orientation: Person, Place, Time, Situation Attachments: Saline Lock, Ventilator Current Glasses/Contacts: Yes Hearing Aids: No Dentures/Partials: No Hand Dominance: Right Upper Extremity ROM Grossly WFL actively. Arthritic changes in hands, with nodules Upper Extremity Coordination Slightly impaired Upper Extremity Sensation No problems, per patient report Upper Extremity Strength Grossly 4/5 bilat. Some difficulty with grasp due to arthritic changes in hands Edema: Some swelling or edema in UEs ADL-Treatment ADL-Current Orientation to rehab unit and ADLs. Pt reported that his main goals are to walk again and to return home. Observed transfer with PT, max assist from raised bed , FWW. Limited ankle ROM Eating (FIM): 5 (setup. Able to feed himself and get a drink. No dentures) Eating (QC): 5 (setup) Education OT Patient Education: Purpose of tx/functional activities, Rehab process Teaching Recipient: Patient Teaching Methods: Discussion Response to Teaching: Verbalize Understanding OT Short Term Goals Short Term Goals Time Frame: Jun 10, 2018 Eating(FIM): 7 Grooming(FIM): 6 Toileting(FIM): 3 Toilet/Commode Transfer(FIM): 3 Additional Short Term Goals: 1-Demonstrate ADL Tasks, 2-Verbalize Understanding , 3-ImproveStrength/Araceli 1=Demonstrate adherence to instructed precautions during ADL tasks. 2=Patient will verbalize/demonstrate understanding of assistive devices/ modifications for ADL. 3=Patient will improve strength/tolerance for activity to enable patient to perform ADL's. OT Chcf Goals Ash Collector Goals Time Frame: Jun 24, 2018 Eating (FIM): 7 Eating (QC): 6 Groomin Oral Hygiene (QC): 6 Bathing(FIM): 5 Shower/Bathe Self (QC): 5 Upper Body Dressing(FIM): 6 Upper Body Dressing (QC): 6 Lower Body Dressing(FIM): 5 Lower Body Dressing (QC): 4 (SBA) On/Off Footwear (QC): 5 Toileting(FIM): 6 Toileting Hygiene (QC): 6 Toilet/Commode Transfer(FIM): 6 Toilet/Commode Transfer (QC): 6 Shower Transfer(FIM): 5 Additional Goals: 1-Demonstrate ADL Tasks, 2-Verbalize Understanding, 3- ImproveStrength/Araceli 1=Demonstrate adherence to instructed precautions during ADL tasks. 2=Patient will verbalize/demonstrate understanding of assistive devices/ modifications for ADL. 3=Patient will improve strength/tolerance for activity to enable patient to perform ADL's. OT Education/Plan Problem List/Assessment Assessment: Decreased Activ Tolerance, Decreased UE Strength, Dependent Transfers, Edema, Impaired Coordination, Impaired Self-Care Skills, Restricted Funct UE ROM Pt would benefit from skilled OT to increase his independence in basic self care to allow him to safely return home Discharge Recommendations Plan/Recommendations: Continue POC Treatment Plan/Plan of Care Treatment,Training & Education: Yes Patient would benefit from OT for education, treatment and training to promote independence in ADL's, mobility, safety and/or upper extremity function for ADL' s. Plan of Care: ADL Retraining, Functional Mobility, Group Exercise/Act as Ind ( education, exercise, activity tolerance, functional mobility, funct activities, socialization), UE Funct Exercise/Act, UE Neuromus Re-Ed/Coord, W/C Management Training, OTHER (energy conservation and joint protection education and practice ) Treatment Duration: Jun 24, 2018 Frequency: At least 5 of 7 days/Wk (IRF) Estimated Hrs Per Day: 1.5 hours per day Agreement: Yes Rehab Potential: Fair Time/GCodes Start Time: 13:05 Stop Time: 13:25 Total Time Billed (hr/min): 20 Billed Treatment Time visit, 20 minutes evaluation high intensity MUKESH FISHER OT Jun 03, 2018 13:34
[2018-06-03] MEDS ORDERED: FLU QUADRIvalent (5+ YOA) 2018-2019 (AFLURIA) 0.5 ML IM ONE (14:30)
--- NOTE | 2018-06-03 14:45 | Physical Therapy Daily Note ---
PT Daily Note-Current Subjective Pt. very pleasant and social. Agrees to Rx with [employer] NAYELI co Rx for showering skills training, TRF training, w/c mobility training and therapeutic exercises as well as orientation to ARU. Pt. initially rates his pain at 7/10 throughout his joints and decreased to 5/10 at end of Rx stating he finds that his he move he feels a little better in his experience with arthritis. Pt. also shares that he has had some experiences with what he believes is panic attacks and anxiety Pain Numeric Pain Scale: 5-Moderate Pain Location: Right (and left) Location Body Site: Hip Pain Description: Ache Mental Status Patient Orientation: Normal For Age Transfers Therapy Code Descriptions/Definitions Functional [place] Measure: 0=Not Assessed/NA 4=Minimal Assistance 1=Total Assistance 5=Supervision or Setup 2=Maximal Assistance 6=Modified [place] 3=Moderate Assistance 7=Complete [place] Therapy Quality Codes: 6 Independent with activity with or without an assistive device 5 Patient requires set up or clean up by helper. Patient completes activity by themselves 4 Supervision or touching assist (CGA). [place] provide cues , steadying assist 3 The helper provides less than half the effort to complete the activity 2 The helper provides more than half the effort to complete the activity 1 Dependent. The helper does all the effort to complete an activity 7 Patient refused to complete or attempt activity 9 The patient did not perform the activity before the current illness or injury 88 Not attempted due to Medical conditions or safety concerns Transfers (B, C, W/C) (FIM): 3 Scootin Rollin Supine to/from Sit: 5 Sit to/from Stand: 3 Bed to/from Chair: 3 sit to biomedical engineering professor shower with pt. pulling on rail on wall mod assist of one to stand x 3-4 trials. sit to stand from w/c pt. has to uses dorsal fisted hand on arms of w/c for sit to stand. Once in stance pt. has good control proximally. sit to sup and sup to sit all SBA x2 trials Gait Training Gait (FIM): 1 Distance (FIM): 1=up to 49 ft (5 steps) Gait Level of Assist: 3 Gait Persons Needed: 1 Gait Assistive Device: Handheld Assist limited steps on feet , w/c to bed 4-5 small steps with mod assist Wheelchair Training Wheelchair (FIM): 2 Wheelchair Distance: 7=218-19 ft (100ft x 3) Wheelchair Level of Assist: 4 needed instruction in basic use of brakes and turning and management Exercises Supine Ex: Bridging, Ankle pumps, Rolling, Heel Slides, Scooting, Straight leg raise, Hip abd/add Supine Reps: 15 Seated Therapy Exercises: Ankle pumps, Sit to stand (x7), Long arc quads Seated Reps: 15 Treatments co Rx for shower for sit to stand stability and balance as OT instructed and Rxd for ADL and clothing and showering management. Pt. seated for shower Assessment Current Status: Good Progress Pt. gives full effort, very motivated, pleasant, progress noted in all phases of 1st Rx PT Plan Problem List Problem List: Activity Tolerance, Functional Strength, Safety, Balance, Gait, Transfer, Bed Mobility Treatment/Plan Treatment Plan: Continue Plan of Care Treatment Plan: Bed Mobility, Education, Functional Activity Araceli, Functional Strength, Group Therapy, Gait, Safety, Therapeutic Exercise, Transfers Treatment Duration: Jun 24, 2018 Frequency: At least 5 of 7 days/Wk (IRF) Estimated Hrs Per Day: 1.5 hours per day Patient and/or Family Agrees t: Yes Safety Risks/Education Patient Education: Gait Training, Transfer Techniques, Correct Positioning, W/ C Management, Disease Process, Safety Issues Teaching Recipient: Patient Teaching Methods: Demonstration, Discussion Response to Teaching: Verbalize Understanding, Return Demonstration, Reinforcement Needed Discharge Recommendations Therapy D/C Recommendations: Physical Therapy Home Care Time/GCodes Time In: 1325 Time Out: 1435 Total Billed Treatment Time: 70 (co RX OT PT) Total Billed Treatment 1,WC 15m,EX25m,FA30m G Codes Necessary: MEREDITH Monteiro [employer] Jun 03, 2018 14:44
--- NOTE | 2018-06-03 14:46 | Physical Therapy Evaluation ---
PT Evaluation-General Medical Diagnosis Admission Date Jun 03, 2018 at 13:00 Medical Diagnosis: Rheumatoid arthritis, gout Onset Date: Jun 01, 2018 Therapy Diagnosis Therapy Diagnosis: weakness; abn gait Height/Weight Height (Feet): 5 Height (Inches): 10.00 Weight (Pounds): 305 Weight (Ounces): 3.0 Precautions Precautions/Isolations: Fall Prevention, Standard Precautions, Pressure Ulcer Weight Bear Status Right Lower Extremity: Right Weight Bearing/Tolerated Left Lower Extremity: Left Full Weight Bearing Referral Physician: Lamont Reason for Referral: Evaluation/Treatment Medical History Pertinent Medical History: Arthritis, DM, GERD, HTN, Rheumatoid Arthritis, Smoking Additional Medical History gout Current History Pt admitted to acute hospital with decreased ability to care for himself and decreased functional mobility. He had sustained an ankle fracture in March 2018 and has had a decline in functional mobility since that time. He has transferred to ARU due to decreased mobility and ability to perform self care. Reviewed History: Yes Social History Home: Single Level Current Living Status: Spouse (and 11 year old son) Entry Into Home: Stairs With Railing PT Steps Into Home: 2 Prior/Core FIM Prior Level of Function Therapy Code Descriptions/Definitions Functional [place] Measure: 0=Not Assessed/NA 4=Minimal Assistance 1=Total Assistance 5=Supervision or Setup 2=Maximal Assistance 6=Modified [place] 3=Moderate Assistance 7=Complete [place] Therapy Quality Codes: 6 Independent with activity with or without an assistive device 5 Patient requires set up or clean up by helper. Patient completes activity by themselves 4 Supervision or touching assist (CGA). [place] provide cues , steadying assist 3 The helper provides less than half the effort to complete the activity 2 The helper provides more than half the effort to complete the activity 1 Dependent. The helper does all the effort to complete an activity 7 Patient refused to complete or attempt activity 9 The patient did not perform the activity before the current illness or injury 88 Not attempted due to Medical conditions or safety concerns Functional Abilities and Goals: Independent: Patient completed the activities by him/herself, with or without an assistive device, with no assistance from a helper. Needed Some Help: Patient needed partial assistance from another person to complete activities. Dependent: A helper completed the activities for the patient. Unknown: Not Applicable: Bed Mobility: 7 Transfers (B,C,W/C) (FIM): 7 Gait: 7 Stairs: 6 Indoor Mobility (Ambulation): Independent Stairs: Independent Prior Device Use: pt used a can occasionally Prior to March of 2018 pt was indep with mobiltity. Recently, he has been limited in even getting out of bed. PT Evaluation-Current Subjective Agreeable to PT. Reports a flare-up of gout right knee this date. Pain Numeric Pain Scale: 9 Location: Right Location Body Site: Knee Pain Description: Ache ("gout") Pt/Family Goals Pt reports his goal is to return to walking as he did prior to March. He reports he wants to get stronger. Objective Patient Orientation: Person, Place, Time, Situation Problem Solving: Fair ROM/Strength ROM Lower Extremities WFL; lacks full knee extension right (approx 20 degrees) which he attributes to a gout flareup. Strenght Lower Extremities B LE strength is grossly 3+/5 throughout Integumentary/Posture Integumentary Refer to nursing notes. Bowel Incontinence: No Bladder Incontinence: No Posture rounded shoulders; has difficulty with full hip extension in standing. Neuromuscular (Tone, Coordination, Reflexes) Impaired coordination at times but is functional; tone and reflexes functional Sensory Vision: Wears Glasses Hearing: Functional Hand Dominance: Right Sensation Right Lower Extremit: Intact Sensation Left Lower Extremity: Intact Transfers Therapy Code Descriptions/Definitions Functional [place] Measure: 0=Not Assessed/NA 4=Minimal Assistance 1=Total Assistance 5=Supervision or Setup 2=Maximal Assistance 6=Modified [place] 3=Moderate Assistance 7=Complete [place] Therapy Quality Codes: 6 Independent with activity with or without an assistive device 5 Patient requires set up or clean up by helper. Patient completes activity by themselves 4 Supervision or touching assist (CGA). [place] provide cues , steadying assist 3 The helper provides less than half the effort to complete the activity 2 The helper provides more than half the effort to complete the activity 1 Dependent. The helper does all the effort to complete an activity 7 Patient refused to complete or attempt activity 9 The patient did not perform the activity before the current illness or injury 88 Not attempted due to Medical conditions or safety concerns Transfers (B, C, W/C) (FIM): 2 Scootin Roll Left to Right (QC): 3 Supine to/from Sit: 2 Sit to/from Stand: 2 (max assist with bed elevated) bed t/f WC(FIM only if WC use): 4 Sit to Lying (QC): 2 Lying to Sitting/Side of Bed(Q: 3 Sit to Stand (QC): 2 Chair/[id number]-Qbofh Xfer(QC): 3 Car Transfer (QC): 2 Pt requires assist to initiate movement and skilled cues to sequence. Gait Does the Patient Walk?: Yes Mode of Locomotion: Walk Anticipated Mode of Locomotion: Walk Gait (FIM): 1 (steps to turn only) Distance (FIM): 1=up to 49 ft Walk 10 feet (QC): 88 (unable to complete) Walk 50 ft with 2 Turns(QC): 88 Walk 150 ft (QC): 88 Walking 10ft/uneven surface-QC: 88 Gait Assistive Device: FWW Comments/Gait Description Pt only able to take steps to turn but unable to effectively walk forward due to LE weakness; decreased activity to[place]rance. Heavy reliance on FWW. Wheelchair Training Does the Pt Use a Wheelchair?: Yes Wheelchair (FIM): 4 Wheelchair Distance (FIM): 3=150 ft Wheelchair Level of Assist: 4 Wheel 50 ft with 2 turns (QC): 4 Wheel 150 ft (QC): 4 Type of Wheelchair: Manual Stairs Stairs (FIM): 1 (unable to attempt due to LE weakness) #of Steps: 0 1 Step (curb) (QC): 88 4 Steps (QC): 88 12 Steps (QC): 88 If not tested on admit;explain Unable to attempt due to LE weakness; unable to effectively ambulate at this time. Balance Sitting Static: Good Sitting Dynamic: Good Standing Static: Fair Standing Dynamic: Fair Picking up an Object (QC): 88 (unsafe to attempt) Assessment/Needs Pt presents with decreased functional strength due to several weeks of immobility due to right ankle fracture. He requires heavy assist with all functional transfers and is unable to ambulate. His PLOF was ambulating and he has potential to return to this level of function. Rehab Potential: Good PT Short Term Goals Short Term Goals Time Frame: Jun 10, 2018 Transfers (B,C,W/C) (FIM): 4 Gait (FIM): 4 Distance (FIM): 3=150 ft Gait Assistive Device: FWW Wheelchair (FIM): 6 Stairs (FIM): 2 # of Steps: 4 PT Production Support Manager Goals Halfway Goals PT Halfway Goals Time Frame: Jun 24, 2018 Transfers (B,C,W/C) (FIM): 7 Sit to Lying (QC): 6 Lying-Sitting on Side/Bed(QC): 6 Sit to Stand (QC): 6 Roll Left to Right (QC): 6 Chair/[id number]-Zpnmf Xfer(QC): 6 Car Transfer (QC): 6 Does the Patient Walk: Yes Gait (FIM): 6 Gait distance (FIM): 3=150 ft Walk 10 feet (QC): 6 Walk 10ft-Uneven Surface(QC): 6 Walk 50ft with 2 Turns (QC): 6 Walk 150 ft (QC): 6 Gait Assistive Device: FWW Wheelchair (FIM): 6 Stairs (FIM): 5 # of Steps: 4 1 Step (curb) (QC): 6 4 Steps (QC): 6 12 Steps (QC): 88 Stairs Level Of Assist: 6 Picking up an Object (QC): 4 Goals are for pt to return home at a mod indep level. PT Plan Problem List Problem List: Activity Tolerance, Functional Strength, Safety, Balance, Gait, Transfer, Bed Mobility Treatment/Plan Treatment Plan: Continue Plan of Care Treatment Plan: Bed Mobility, Education, Functional Activity Araceli, Functional Strength, Group Therapy, Gait, Safety, Therapeutic Exercise, Transfers Treatment Duration: Jun 24, 2018 Frequency: At least 5 of 7 days/Wk (IRF) Estimated Hrs Per Day: 1.5 hours per day Patient and/or Family Agrees t: Yes Discharge Recommendations Therapy D/C Recommendations: Physical Therapy Home Care Time/GCodes Time In: 1240 Time Out: 1300 Total Billed Treatment Time: 20 Total Billed Treatment visit EVM 20 MIGUEL DOBBINS PT Jun 03, 2018 14:46
--- NOTE | 2018-06-03 14:51 | Occupational Ther Daily Note ---
OT Current Status-Daily Note Subjective Pt alert, sitting in recliner. Pt agrees to therapy. Pt c/o pain rated 8/10 then by end of therapy rated 5/10. Mental Status/Objective Patient Orientation: Person, Place, Time, Situation Therapy Code Descriptions/Definitions Functional [place] Measure: 0=Not Assessed/NA 4=Minimal Assistance 1=Total Assistance 5=Supervision or Setup 2=Maximal Assistance 6=Modified [place] 3=Moderate Assistance 7=Complete [place] Attachments: IV ADL-Treatment PT/OT co-treat for skilled care due to decreased activity tolerance and decreased mobility. PT worked on transfers, LE exercises, standing and w/c mobility. OT worked on ADLs, UE strengthening and functional transfers. Therapy Code Descriptions/Definitions Functional [place] Measure: 0=Not Assessed/NA 4=Minimal Assistance 1=Total Assistance 5=Supervision or Setup 2=Maximal Assistance 6=Modified [place] 3=Moderate Assistance 7=Complete [place] Therapy Quality Codes: 6 Independent with activity with or without an assistive device 5 Patient requires set up or clean up by helper. Patient completes activity by themselves 4 Supervision or touching assist (CGA). [place] provide cues , steadying assist 3 The helper provides less than half the effort to complete the activity 2 The helper provides more than half the effort to complete the activity 1 Dependent. The helper does all the effort to complete an activity 7 Patient refused to complete or attempt activity 9 The patient did not perform the activity before the current illness or injury 88 Not attempted due to Medical conditions or safety concerns Grooming (FIM): 6 (Sitting in w/c, pt able to complete own grooming.) Oral Hygiene (QC): 6 Bathing (FIM): 4 (Sitting on BSC with cutout, pt able to complete upper body, buttocks and [place]bert[place] area. Assist with lower legs and feet.) Bathing Location: L Arm, R Arm, L Upper Leg, R Upper Leg, Chest, Abdomen, Buttocks, Perineal Area Shower/Bathe Self (QC): 3 Upper Body (FIM): 5 (After setup, pt able to complete by self.) Upper Body Dressing (QC): 5 Lower Body Dressing (FIM): 1 (Assist to don/doff over feet, pt did attempt to don underwear over feet. Assist x2 to stand to hike pants over hips.) Lower Body Dressing (QC): 1 On/Off Footwear (QC): 2 Toileting (FIM): 1 (Assist x2 to manipulate clothing. Pt able to cleanse self sitting on BSC.) Toileting Hygiene (QC): 1 Toilet/Commode Transfer (FIM): 1 (Assist x2. Pt able to hold onto grabbars and stand with assist while BSC is placed.) Toilet Transfer (QC): 1 Shower Transfer(FIM): 1 (Assist x2. W/c rolled into large shower, pt pulls self to stand with assist then BSC placed under pt.) Other Treatment Pt able to maneuvered w/c to therapy gym. See PT notes for transfer and LE exercises. Pt able to complete 5 arm chair pushups on knuckles due to pain in wrists. Medium resistance theraband given and educated exercises, 1 set 10 reps. Pt then maneuvered w/c to room and PT positioned w/c for transfer to bed. PT working on transfers. Pt demonstrated ability to go from EOB to supine and back by self. After therapy, pt lying in bed with call light/phone in reach. Pt educated on using hospital bed. All needs met in room. Education OT Patient Education: Exercise program Teaching Recipient: Patient Teaching Methods: Demonstration, Discussion Response to Teaching: Return Demonstration OT Short Term Goals Short Term Goals Time Frame: Jun 10, 2018 Eating(FIM): 7 Grooming(FIM): 6 Toileting(FIM): 3 Toilet/Commode Transfer(FIM): 3 Additional Short Term Goals: 1-Demonstrate ADL Tasks, 2-Verbalize Understanding , 3-ImproveStrength/Araceli 1=Demonstrate adherence to instructed precautions during ADL tasks. 2=Patient will verbalize/demonstrate understanding of assistive devices/ modifications for ADL. 3=Patient will improve strength/tolerance for activity to enable patient to perform ADL's. OT Inspector Dials Goals Long-Term Goals Time Frame: Jun 24, 2018 Eating (FIM): 7 Eating (QC): 6 Groomin Oral Hygiene (QC): 6 Bathing(FIM): 5 Shower/Bathe Self (QC): 5 Upper Body Dressing(FIM): 6 Upper Body Dressing (QC): 6 Lower Body Dressing(FIM): 5 Lower Body Dressing (QC): 4 (SBA) On/Off Footwear (QC): 5 Toileting(FIM): 6 Toileting Hygiene (QC): 6 Toilet/Commode Transfer(FIM): 6 Toilet/Commode Transfer (QC): 6 Shower Transfer(FIM): 5 Additional Goals: 1-Demonstrate ADL Tasks, 2-Verbalize Understanding, 3- ImproveStrength/[place]ac[place] 1=Demonstrate adherence to instructed precautions during ADL tasks. 2=Patient will verbalize/demonstrate understanding of assistive devices/ modifications for ADL. 3=Patient will improve strength/tolerance for activity to enable patient to perform ADL's. OT Education/Plan Problem List/Assessment Pt would benefit from skilled OT to increase his independence in basic self care to allow him to safely return home Discharge Recommendations Plan/Recommendations: Continue POC Treatment Plan/Plan of Care Patient would benefit from OT for education, treatment and training to promote independence in ADL's, mobility, safety and/or upper extremity function for ADL' s. Plan of Care: ADL Retraining, Functional Mobility, Group Exercise/Act as Ind ( education, exercise, activity tolerance, functional mobility, funct activities, socialization), UE Funct Exercise/Act, UE Neuromus Re-Ed/Coord, W/C Management Training, OTHER (energy conservation and joint protection education and practice ) Treatment Duration: Jun 24, 2018 Frequency: At least 5 of 7 days/Wk (IRF) Estimated Hrs Per Day: 1.5 hours per day Agreement: Yes Rehab Potential: Fair Time/GCodes Start Time: 13:25 Stop Time: 14:35 Total Time Billed (hr/min): 70 Billed Treatment Time 1 visit-ADL 4 (55 min) FA 1 (15 min) co-treat with PT 70 min MIGUEL COREY Jun 03, 2018 14:51
--- NOTE | 2018-06-03 15:18 | ST Cognitive Linguistic Eval ---
Speech Evaluation-General Medical Diagnosis Rheumatoid arthritis, gout Onset Date: Jun 01, 2018 Therapy Diagnosis Therapy Diagnosis: Cognitive communication Precautions Precautions/Isolations: Fall Prevention, Standard Precautions, Pressure Ulcer Medical History Pertinent Medical History: Arthritis, DM, GERD, HTN, Rheumatoid Arthritis, Smoking Reviewed History: Yes Social History Current Living Status: Spouse (and 11 year old son) Speech PLF-Current Status Prior Level of Function Patient lived with his family and was independent for most of his daily needs with assistance of family as needed. Subjective Patient was pleasant and cooperative. Language Eval: Auditory Comprehends Simple Yes/No Ques: Functional Indent/Objects Multiple [place]: Functional Ident/Pics in Multiple [place]: Functional Follows 1-Step Commands: Functional Follows Complex Directions: Functional Follows General Conversations: Functional Language Eval: Verbal Language Completes Spontaneous Greeting: Functional Produces Auto, Serial Info: Functional Imitates Simple Words/Phrases: Functional Word Finding: Functional Requests Basic Needs: Functional States Basic Personal Info: Functional Expresses Complex Ideas: Functional Cognitive Patient Orientation Patient is oriented to all concepts. Objective Cognitive Domain Attention: WNL Memory: WNL Problem Solving: Functional Executive Functions: [facility] Objective Formal/Standardized Tests [facility] Cognitive/Communication Results Memory: Immediate: 3/3, Delayed: 3/3 w/o cues, Mental Control: /2, Organization /[place]enc[place]/4, Problem Solving: Simple: 10/25, Comparisons: 09/24, Auditory Comprehension: 04/01 Oral Motor/Speech Production Within Functional Limits Impression Patient is a 52 y/o gentleman who is very pleasant. He was able to engage in conversational tasks without difficulty. He was able to complete all tasks for the cognitive evaluation without difficulty or repetitions. He does not meet criteria for skilled ST services at this time. Communication/Social Cognition Comprehension: 7 Expression: 7 Social Interaction: 7 Problem Solvin Memory: 7 Speech Patient Assess Expression of Ideas/Wants: Expression (4) Understanding Verbal Content: Understands (4) Brief Interview-Mental Status: Yes Repetition of Three Words: Three (3) Temporal Orientation: Year: Correct (3) Temporal Orientation: Month: Accurate within 5 days(2) Temporal Orientation: Day: Correct (1) Recall : Wear to say "Sock": Yes, no cue required (2) Recall : Color: Yes, no cue required (2) Recall : Bed: Yes, no cue required (2) Memory/Recall Ability: Current season, Staff names and faces, That he or she is in a hsp/hsp unit Speech Short Term Goals Short Term Goals Short Term Goals Patient will exhibit adequate communication skills for needs/wants during his ACU admission with 90% or greater. Patient will demonstrate safety awareness during his ACU admission with 90% or greater. Speech Chcf Goals Thermoforming Machine Operator Goals Patient will effectively demonstrate cognitive communication skills for safe return home. Speech-Plan Patient/Family Goals Patient/Family Goals: Patient will return home with his family support for all of his daily needs. Treatment Plan Speech Therapy Treatment Plan: Modify Plan, See Comments Patient is not recommended for skilled ST at this time. Frequency: 1 time per week Estimated Hrs Per Day: Other Rehab Potential: Good Barriers to Learning: Patient tires easily with activitiy. Pt/Family Agrees to Plan: Yes Safety Risks/Education Teaching Recipient: Patient Teaching Methods: Discussion Response to Teaching: Verbalize Understanding Education Topics Provided: Safety within his room on ARU. Discharge Recommendations Patient will not be receiving skilled ST at this time. Time Speech Therapy Time In: 15:00 Speech Therapy Time Out: 15:15 Total Billed Time: 15 Billed Treatment Time 1, SPSNDINES Grace Jun 03, 2018 15:18
[2018-06-03] MEDS ORDERED: CATHETER FLUSH 10 ML SYR IV PRN (16:30)
[2018-06-03] MEDS ORDERED: KCL 20 MEQ TAB (K-DUR) PO NR (16:30)
[2018-06-03] MEDS: metFORMIN 500 MG (GLUCOPHAGE) TAB PO SCH (16:55)
[2018-06-03] MEDS: KCL 10 MEQ TAB (MICRO K) PO SCH (16:55)
[2018-06-03 17:06] VITALS: BP 126/81
--- NOTE | 2018-06-03 20:11 | PM&R Post Admission Assessment ---
Post Admission Physician Asses Date seen by provider: Jun 03, 2018 Time seen by provider: 14:00 The preadmission screen agrees with the post admission assessment that the patient is a good candidate for inpatient rehabilitation. The patient will have a comprehensive program of inpatient rehabilitation with a goal of maximizing level of functional independence prior to discharge home with spouse. The patient will have PT/OT ninety minutes per day, each discipline, five days a week for 2 weeks for gait, strengthening, conditioning , balance, ADLs, any patient/family/caregiver training as necessary. Speech therapy to do cognitive assessment and treat as indicated. Rehabilitation nursing to assist with bowel, bladder, skin, medication administration, pain management. Announcer to assist with discharge planning, community reentry. SCD's for DVT prophylaxis. He appears to be well motivated to participate in three hours of therapy a day. He should be able to tolerate three hours of therapy a day from a medical standpoint. He should benefit from the three hours of therapy a day. He has a reasonable discharge plan, reasonable discharge rehabilitation goals and a supportive family. He has various comorbidities that need to be closely monitored with medications and treatments adjusted on a daily basis as needed. These include: GOUT DIANE on CPAP Morbid obesity RA OA DM HTN hypokalemia [facility] code 06.1 Etiologic DX Gout flare Barriers to discharge for this patient who had been independent prior to this are for him to be modified independent to supervision for ADLs and mobility skills prior to discharge home with spouse, so as to lessen the burden of the caregivers. Risks for this patient include: 1. Fall 2. Fracture 3. DVT 4. Pulmonary embolism 5. Flare of gout 6. Skin breakdown 7. Contractures 8. Poorly controlled pain 9. Urinary retention 10. UTI 11. Respiratory infection 12. Aspiration 13. Flare of RA 14. poorly controlled Dm 15. Poorly controlled DM Estimated Length of Stay: 14 days Prognosis: Rehab prognosis appears good for goal of discharge home with spouse modified independent to supervision for ADLs and mobility skills. Date Identified: Jun 03, 2018 Time Identified: 1600 Action Plan to Resolve CSMI: Transfer meds reviewed General: Alert, Oriented X3, Cooperative, No Acute Distress HEENT: Atraumatic, PERRLA, EOMI, Mucous Memb Moist/[place] Neck: Supple, No JVD Lungs: Clear to Auscultation Heart: Regular Rate Abdomen: Normal Bowel Sounds, Soft, No Tenderness Extremities: Other (pedal edema) Neuro: Other (Strength 3+5 both lower limbs and lacks full active Knee extension RT 20 degrees whixh he attributes to gout) SHANIQUA ANTUNEZ MD Jun 03, 2018 20:11
--- NOTE | 2018-06-03 20:46 | HISTORY AND PHYSICAL ---
DATE OF SERVICE: 06/03/2018 CHIEF COMPLAINT: Difficulty with walking. HISTORY OF PRESENT ILLNESS: The patient is a 52-year-old disabled man who lives with his spouse in [place] who was admitted to [facility] on 06/01/2018 due to complaints of chest pain, dizziness. The patient was seen by cardiology and cardiac source was ruled out. The patient had a gradual decline since a fall with a fracture of the right ankle treated in 03/2018 and has been fairly sedentary since then. He complains of pain in his right leg and wishes his steroids resumed for his rheumatoid arthritis. He also has a history of gout and a goiter. Currently, he had been independent prior to all of this, but fairly sedentary, mostly guided in and out of chair and bed. He lives with his spouse in a single level home with an 11-year-old son. Currently, he is mod assist for transfers. He is mod assist for gait with a front wheel walker. He complains of weakness in his legs and has heavy reliance on the front wheel walker. He is right hand dominant. He is set up for eating. He is mod assist for lower body dressing, min assist for upper body dressing. PAST MEDICAL HISTORY: Arthritis, diabetes mellitus, GERD, hypertension, rheumatoid arthritis, tobaccoism, gout. Sleep apnea, has CPAP; depression, chronic kidney disease stage II. PAST SURGICAL HISTORY: Noncontributory. ALLERGIES: PENICILLINS. FAMILY HISTORY: Diabetes mellitus, throat cancer in father. SOCIAL HISTORY: Disabled since 1999. REVIEW OF SYSTEMS: A 10-point review of systems significant for lower extremity pain and weakness. MEDICATIONS: ASA 81 mg p.o. daily, Zocor 5 mg p.o. daily, colchicine 0.6 mg p.o. daily, lisinopril 10 mg p.o. daily, Uloric 80 mg p.o. daily, prednisone 50 mg p.o. daily and then taper, simvastatin 5 mg p.o. each day at bedtime, metformin 500 mg p.o. b.i.d., KCl 10 mEq p.o. b.i.d. The patient's serum potassium was low this morning at 2.9 and further replacement provided by Cardiology. Ibuprofen 800 mg p.o. q.6 hours p.r.n. pain. PHYSICAL EXAMINATION: GENERAL: Significant for an obese male, appearing his stated age, alert and oriented, in no acute distress, complaining of right leg pain and weakness. BMI is 43.8. VITAL SIGNS: He is afebrile, pulse 97, respirations 20, blood pressure 126/81, O2 sat 95% on room air. HEENT: Vision, speech, hearing grossly intact. No oral lesion is noted. NECK: Supple without mass. HEART: Regular rhythm. CHEST: Clear. ABDOMEN: Soft, nontender, bowel sounds present. EXTREMITIES: Mild edema both ankles, no calf tenderness. MUSCULOSKELETAL: The patient lacks full knee extension on the right approximately 20 degrees, which he attributes to a gout flareup. Strength generally of lower limbs 3+/5, strength upper limb is 4/5. Some arthritic changes noted in his hands, some edema noted in his hands as well. NEUROLOGIC: Cognition grossly intact. Sensation grossly intact to touch. IMPRESSION: 1. A flare of gout/rheumatoid arthritis on steroids and colchicine. 2. Obesity. 3. Thyroid nodule. 4. Gout, on medication. 5. Atypical chest pain. Cardiology has ruled out a cardiac source. 6. Hypokalemia, replacement ordered. 7. Depression, on medication. 8. Diabetes mellitus, controlled with medication. 9. Hypertension, controlled with medication. PLAN: The patient is admitted to the inpatient rehabilitation unit with the goal of maximizing level of functional independence prior to discharge home with spouse. The patient will have PT, OT 90 minutes per day each discipline 5 days a week for 2 weeks with the above goals in mind. Rehabilitation nursing to assist with bowel, bladder, skin care, medication administration, pain management and social worker psychiatric to assist with discharge planning, community reentry. Continue current medications. Follow up with Dr. Stokes and associates [facility]r.n[facility] Adjust medication as necessary. Continue with a prednisone taper. Follow up with cardiology p.r.n. ESTIMATED LENGTH OF STAY: Two weeks. PROGNOSIS: Rehab prognosis appears good for goal of discharging home with spouse, modified independent to supervision for ADLs and mobility skills. DIET: Carb consistent. CODE STATUS: Full code. Job ID: [id number] DocumentID: [id number] Dictated Date: 06/03/2018 19:57:07 [employer]oph[employer] Tech/[place] Date: 06/03/2018 20:45:38 Dictated By: SHANIQUA ANTUNEZ MD [facility]
[2018-06-03] MEDS: CATHETER FLUSH 10 ML SYR IV SCH (21:09)
[2018-06-03] MEDS: SIMvastatin 10 MG (ZOCOR) TAB PO SCH (21:09)
[2018-06-04] MEDS: metFORMIN 500 MG (GLUCOPHAGE) TAB PO SCH ×2 (05:56→17:14)
[2018-06-04] MEDS: predniSONE 20 MG TAB PO SCH (05:56)
[2018-06-04] MEDS: KCL 10 MEQ TAB (MICRO K) PO SCH ×2 (05:57→17:14)
[2018-06-04 06:36] VITALS: BP 148/73
[2018-06-04] MEDS: CATHETER FLUSH 10 ML SYR IV SCH ×3 (06:37→20:07)
[2018-06-04] MEDS: COLCHICINE 0.6 MG (COLCRYS) TABLET PO SCH (08:21)
[2018-06-04] MEDS: ARIPIPRAZOLE 15 MG (ABILIFY) TAB PO SCH (08:21)
[2018-06-04] MEDS: ASPIRIN E.C. 81 MG (ECOTRIN) TAB PO SCH (08:22)
[2018-06-04] MEDS: lisINopril 10 MG (PRINIVIL) TABLET PO SCH (08:22)
[2018-06-04] MEDS: ULORIC 80 MG PO SCH (09:47)
[2018-06-04] MEDS: IBUPROFEN 800 MG (MOTRIN) TAB PO PRN (09:51)
--- NOTE | 2018-06-04 11:05 | Physical Therapy Daily Note ---
PT Daily Note-Current Subjective Patient in wheelchair at bedside pre tx, agrees to PT, no complaints of pain. Patient has swelling of LE's. Will be co-treating for 30 min with OT due to poor endurance, balance, strength, general mobility. Appearance Patient in bed post tx with nurse call, phone, tray, all needs met. Mental Status Patient Orientation: Person, Place, Situation Transfers Therapy Code Descriptions/Definitions Functional [place] Measure: 0=Not Assessed/NA 4=Minimal Assistance 1=Total Assistance 5=Supervision or Setup 2=Maximal Assistance 6=Modified [place] 3=Moderate Assistance 7=Complete [place] Therapy Quality Codes: 6 Independent with activity with or without an assistive device 5 Patient requires set up or clean up by helper. Patient completes activity by themselves 4 Supervision or touching assist (CGA). [place] provide cues , steadying assist 3 The helper provides less than half the effort to complete the activity 2 The helper provides more than half the effort to complete the activity 1 Dependent. The helper does all the effort to complete an activity 7 Patient refused to complete or attempt activity 9 The patient did not perform the activity before the current illness or injury 88 Not attempted due to Medical conditions or safety concerns Transfers (B, C, W/C) (FIM): 3 Scootin Rollin Supine to/from Sit: 5 Sit to/from Stand: 3 Bed to/from Chair: 4 Patient needs mod assist for sit to stand and min assist for transfers. Cues for hand placement and safety. Patient stands with a wide stance and flexed hips. Weight Bearing Right Lower Extremity: Right Weight Bearing/Tolerated Left Lower Extremity: Left Full Weight Bearing Gait Training Gait (FIM): 1 Distance: 16'x3, 20' Gait Level of Assist: 4 Gait Persons Needed: 1 Gait Assistive Device: Parallel Bars Patient ambulated in the parallel bars 8' forward and back three times and ambulated with a rolling walker 20' with min assist. He ambulates with a very wide stance and little to no knee flexion. Wheelchair Training Does the Pt Use a Wheelchair?: Yes Wheelchair (FIM): 2 Distance: 120'x2 Wheelchair Level of Assist: 5 Type of Wheelchair: Manual Exercises Seated Therapy Exercises: Ankle pumps, Long arc quads, Hip flexion, Hip abd/add Seated Reps: 20 Neuromuscular balance activity in the parallel bars reaching for cones Treatments bed mobility and transfers, ambulation, functional strengthening, balance training Assessment Current Status: Fair Progress improved ambulation PT Short Term Goals Short Term Goals Time Frame: Jun 10, 2018 Transfers (B,C,W/C) (FIM): 4 Gait (FIM): 4 Distance (FIM): 3=150 ft Gait Assistive Device: FWW Wheelchair (FIM): 6 Stairs (FIM): 2 # of Steps: 4 PT Bloom Conveyor Operator Goals Usp Goals PT Bloom Conveyor Operator Goals Time Frame: Jun 24, 2018 Transfers (B,C,W/C) (FIM): 7 Sit to Lying (QC): 6 Lying-Sitting on Side/Bed(QC): 6 Sit to Stand (QC): 6 Rollin Roll Left to Right (QC): 6 Chair/Fjx-he-[place]cn[place] Xfer(QC): 6 Car Transfer (QC): 6 Does the Patient Walk: Yes Gait (FIM): 6 Gait distance (FIM): 3=150 ft Walk 10 feet (QC): 6 Walk 10ft-Uneven Surface(QC): 6 Walk 50ft with 2 Turns (QC): 6 Walk 150 ft (QC): 6 Gait Assistive Device: FWW Wheelchair (FIM): 6 Stairs (FIM): 5 # of Steps: 4 1 Step (curb) (QC): 6 4 Steps (QC): 6 12 Steps (QC): 88 Stairs Level Of Assist: 6 Picking up an Object (QC): 4 PT Plan Problem List Problem List: Activity Tolerance, Functional Strength, Safety, Balance, Gait, Transfer, Bed Mobility, ROM Treatment/Plan Treatment Plan: Continue Plan of Care Treatment Plan: Bed Mobility, Education, Functional Activity Araceli, Functional Strength, Group Therapy, Gait, Safety, Therapeutic Exercise, Transfers Treatment Duration: Jun 24, 2018 Frequency: At least 5 of 7 days/Wk (IRF) Estimated Hrs Per Day: 1.5 hours per day Patient and/or Family Agrees t: Yes Safety Risks/Education Patient Education: Gait Training, Transfer Techniques, Correct Positioning, W/ C Management, Safety Issues Teaching Recipient: Patient Teaching Methods: Demonstration, Discussion Response to Teaching: Reinforcement Needed Time/GCodes Time In: 1000 Time Out: 1100 Total Billed Treatment Time: 60 Total Billed Treatment 1 visit [facility] 15' EX 15' GT 20' NM 10' Co-treated with OT for 30 min. PT worked on bed mobility and transfers, ambulation, LE strengthening, balance training. OT worked on UE strengthening, balance training. JEWEL ALAN PT Jun 04, 2018 11:05
--- NOTE | 2018-06-04 14:04 | PM & R (SOAP) Progress Note ---
Subjective This was a face to face visit with the patient. Date Seen by Provider: Jun 04, 2018 Time Seen by Provider: 08:10 Subjective/Events-last exam Patient was seen in his room this AM Patient min to mod assist for transfers Adjusting well to unit Review of Systems Neurological: Weakness Objective Physician Exam Last Set of Vital Signs Vital Signs Date Time Temp Pulse Resp B/P (MAP) Pulse Ox O2 Delivery O2 Flow Rate FiO2 06/04/18 06:36 98.2 85 18 148/73 (98) 94 Room Air Capillary Refill : I&O Intake and Output 06/04/18 00:00 Intake Total 440 ml Output Total 0 ml Balance 440 ml Intake Oral 440 ml Output Urine Total 0 ml Daily Weight Change No General: Alert, Oriented X3, Cooperative, No Acute Distress HEENT: Atraumatic, PERRLA, EOMI, Mucous Memb Moist/[place] Neck: Supple, No JVD Lungs: Clear to Auscultation Heart: Regular Rate Abdomen: Normal Bowel Sounds, Soft, No Tenderness Extremities: Other (pedal edema) Neuro: Other (Strength 3+5 both lower limbs and lacks full active Knee extension RT 20 degrees whixh he attributes to gout) Results Lab Data Laboratory Tests 06/04/18 05:49: Glucometer 143H Assessment/Plan Assessment and Plan Flare of gout/RA on colchicine and steroid taper Obesity DM controlled tHYROID NODULE aTYPICAL cHEST PAIN nONRECURRENT hYPOKALEMIA REPLACED DEPRESSION ON MED htn CONTROLLED WITH MED Plan Continue PT/OT Team Conference next week Goal return home with spouse Modified Independent for adls and mobility skills Co-Morbidities that are continuing to impact the rehab process: (include details ) SHANIQUA ANTUNEZ MD Jun 04, 2018 14:04
--- NOTE | 2018-06-04 14:23 | Physical Therapy Daily Note ---
PT Daily Note-Current Subjective Pt sitting up in bed upon arrival. Pt agrees to PT. Pt reports a little fatigue. Pain Numeric Pain Scale: 4 Location: Right, Left Location Body Site: Hip Pain Description: Ache Mental Status Patient Orientation: Person, Place, Time, Situation Transfers Therapy Code Descriptions/Definitions Functional [place] Measure: 0=Not Assessed/NA 4=Minimal Assistance 1=Total Assistance 5=Supervision or Setup 2=Maximal Assistance 6=Modified [place] 3=Moderate Assistance 7=Complete [place] Therapy Quality Codes: 6 Independent with activity with or without an assistive device 5 Patient requires set up or clean up by helper. Patient completes activity by themselves 4 Supervision or touching assist (CGA). [place] provide cues , steadying assist 3 The helper provides less than half the effort to complete the activity 2 The helper provides more than half the effort to complete the activity 1 Dependent. The helper does all the effort to complete an activity 7 Patient refused to complete or attempt activity 9 The patient did not perform the activity before the current illness or injury 88 Not attempted due to Medical conditions or safety concerns Weight Bearing Right Lower Extremity: Right Weight Bearing/Tolerated Left Lower Extremity: Left Full Weight Bearing Exercises Supine Ex: Ankle pumps, Quad Set, Glut sets, Heel Slides, Straight leg raise, Hip abd/add Supine Reps: 15 Treatments Pt completes Supine Ex in bed with a few short rest breaks. Pt resting in bed with all needs met. Assessment Current Status: Good Progress Pt is gaining strength with tx on ARU. PT Short Term Goals Short Term Goals Time Frame: Jun 10, 2018 Transfers (B,C,W/C) (FIM): 4 Gait (FIM): 4 Distance (FIM): 3=150 ft Gait Assistive Device: FWW Wheelchair (FIM): 6 Wheelchair Distance: 120'x2 Stairs (FIM): 2 # of Steps: 4 PT Bar Tender Goals Bar Tender Goals PT Senior Living Goals Time Frame: Jun 24, 2018 Transfers (B,C,W/C) (FIM): 7 Sit to Lying (QC): 6 Lying-Sitting on Side/Bed(QC): 6 Sit to Stand (QC): 6 Rollin Roll Left to Right (QC): 6 Chair/Rbu-zn-Uytyo Xfer(QC): 6 Car Transfer (QC): 6 Does the Patient Walk: Yes Gait (FIM): 6 Gait distance (FIM): 3=150 ft Walk 10 feet (QC): 6 Walk 10ft-Uneven Surface(QC): 6 Walk 50ft with 2 Turns (QC): 6 Walk 150 ft (QC): 6 Gait Assistive Device: FWW Wheelchair (FIM): 6 Stairs (FIM): 5 # of Steps: 4 1 Step (curb) (QC): 6 4 Steps (QC): 6 12 Steps (QC): 88 Stairs Level Of Assist: 6 Picking up an Object (QC): 4 PT Plan Problem List Problem List: Activity Tolerance, Functional Strength, Balance, Gait, Transfer Treatment/Plan Treatment Plan: Continue Plan of Care Treatment Plan: Bed Mobility, Education, Functional Activity Araceli, Functional Strength, Group Therapy, Gait, Safety, Therapeutic Exercise, Transfers Treatment Duration: Jun 24, 2018 Frequency: At least 5 of 7 days/Wk (IRF) Estimated Hrs Per Day: 1.5 hours per day Patient and/or Family Agrees t: Yes Safety Risks/Education Patient Education: Gait Training, Transfer Techniques, Correct Positioning, Safety Issues Teaching Recipient: Patient Teaching Methods: Discussion Response to Teaching: Verbalize Understanding Time/GCodes Time In: 1330 Time Out: 1400 Total Billed Treatment Time: 30 Total Billed Treatment 1, EX x2 (30m) G Codes Necessary: DAVID Rodriguez DIESEL TECHNICIAN Jun 04, 2018 14:23
--- NOTE | 2018-06-04 14:37 | Occupational Ther Daily Note ---
OT Current Status-Daily Note Subjective No pain reported. Appearance Pt. in bed when OT entered room. Agrees to work with OT. Mental Status/Objective Patient Orientation: Person, Place Therapy Code Descriptions/Definitions Functional [place] Measure: 0=Not Assessed/NA 4=Minimal Assistance 1=Total Assistance 5=Supervision or Setup 2=Maximal Assistance 6=Modified [place] 3=Moderate Assistance 7=Complete [place] ADL-Treatment Therapy Code Descriptions/Definitions Functional [place] Measure: 0=Not Assessed/NA 4=Minimal Assistance 1=Total Assistance 5=Supervision or Setup 2=Maximal Assistance 6=Modified [place] 3=Moderate Assistance 7=Complete [place] Therapy Quality Codes: 6 Independent with activity with or without an assistive device 5 Patient requires set up or clean up by helper. Patient completes activity by themselves 4 Supervision or touching assist (CGA). [place] provide cues , steadying assist 3 The helper provides less than half the effort to complete the activity 2 The helper provides more than half the effort to complete the activity 1 Dependent. The helper does all the effort to complete an activity 7 Patient refused to complete or attempt activity 9 The patient did not perform the activity before the current illness or injury 88 Not attempted due to Medical conditions or safety concerns Lower Body Dressing (FIM): 3 (Pt. practiced doffing/donning slipper socks using AE. ) Lower Body Dressing (QC): 3 On/Off Footwear (QC): 3 Transfers (B, C, W/C) (FIM): 3 (SBA supine-sit, Mod assist sit-stand and ambulation with walker.) Pt. agreed to work with OT. Declined showering/dressing. States that he is wearing clean clothing. Pt. transferred supine-sit with SBA. Sat on side of bed to practice doffing/donning slipper socks with AE. Stood with mod assist from bed with walker. Pt. given step by step cues to complete steps to stand, such as "scoot to edge of bed, feet under knees, nose over toes." Pt. is able to complete these steps. Stood at walker for approximately 1 minute to increase overall strength and endurance. Pt. stood again and transferred to wheelchair. Pt. self propelled to therapy gym. Practiced standing at walker in gym with min assist. Pt. participated in armbike x 15 minutes to increase overall strength and endurance with daily tasks. Pt. required several rest breaks. Practiced self propelling back to room. Pt. agreed to stay up in wheelchair to wait for PT. All needs met. Education OT Patient Education: Correct positioning, Exercise program, Modified ADL techniques, Progress toward Goal/Update tx plan, Purpose of tx/functional activities, Reviewed precautions, Rehab process, Transfer techniques Teaching Recipient: Patient Teaching Methods: Demonstration, Discussion Response to Teaching: Verbalize Understanding, Return Demonstration OT Short Term Goals Short Term Goals Time Frame: Jun 10, 2018 Eating(FIM): 7 Grooming(FIM): 6 Toileting(FIM): 3 Transfers (B,C,W/C) (FIM): 4 Toilet/Commode Transfer(FIM): 3 Additional Short Term Goals: 1-Demonstrate ADL Tasks, 2-Verbalize Understanding , 3-ImproveStrength/Araceli 1=Demonstrate adherence to instructed precautions during ADL tasks. 2=Patient will verbalize/demonstrate understanding of assistive devices/ modifications for ADL. 3=Patient will improve strength/tolerance for activity to enable patient to perform ADL's. OT Chcf Goals Packaging Supervisor Goals Time Frame: Jun 24, 2018 Eating (FIM): 7 Eating (QC): 6 Groomin Oral Hygiene (QC): 6 Bathing(FIM): 5 Shower/Bathe Self (QC): 5 Upper Body Dressing(FIM): 6 Upper Body Dressing (QC): 6 Lower Body Dressing(FIM): 5 Lower Body Dressing (QC): 4 (SBA) On/Off Footwear (QC): 5 Toileting(FIM): 6 Toileting Hygiene (QC): 6 Toilet/Commode Transfer(FIM): 6 Toilet/Commode Transfer (QC): 6 Shower Transfer(FIM): 5 Additional Goals: 1-Demonstrate ADL Tasks, 2-Verbalize Understanding, 3- ImproveStrength/Araceli 1=Demonstrate adherence to instructed precautions during ADL tasks. 2=Patient will verbalize/demonstrate understanding of assistive devices/ modifications for ADL. 3=Patient will improve strength/tolerance for activity to enable patient to perform ADL's. OT Education/Plan Problem List/Assessment Assessment: Decreased Activ Tolerance, Decreased UE Strength, Impaired I ADL's , Impaired Self-Care Skills Pt would benefit from skilled OT to increase his independence in basic self care to allow him to safely return home Discharge Recommendations Plan/Recommendations: Continue POC Therapy D/C Recommendations: Home w/ Family Support, Occupational Therapy Home Care Treatment Plan/Plan of Care Treatment,Training & Education: Yes Patient would benefit from OT for education, treatment and training to promote independence in ADL's, mobility, safety and/or upper extremity function for ADL' s. Plan of Care: ADL Retraining, Functional Mobility, Group Exercise/Act as Ind ( education, exercise, activity tolerance, functional mobility, funct activities, socialization), UE Funct Exercise/Act, UE Neuromus Re-Ed/Coord, W/C Management Training, OTHER (energy conservation and joint protection education and practice ) Treatment Duration: Jun 24, 2018 Frequency: At least 5 of 7 days/Wk (IRF) Estimated Hrs Per Day: 1.5 hours per day Agreement: Yes Rehab Potential: Good Time/GCodes Start Time: 08:15 Stop Time: 09:15 Total Time Billed (hr/min): 60 Billed Treatment Time 1, ADL x 30minutes, Ex x 15minutes, FA x 15minutes YESICA CARTWRIGHT OT Jun 04, 2018 14:37
--- NOTE | 2018-06-04 15:19 | Occupational Ther Daily Note ---
OT Current Status-Daily Note Subjective Pt. does not report pain. Agrees to treatment. Appearance Pt. up in chair with PT. Agrees to work with OT as well. Mental Status/Objective Patient Orientation: Person, Place Therapy Code Descriptions/Definitions Functional [place] Measure: 0=Not Assessed/NA 4=Minimal Assistance 1=Total Assistance 5=Supervision or Setup 2=Maximal Assistance 6=Modified [place] 3=Moderate Assistance 7=Complete [place] ADL-Treatment Therapy Code Descriptions/Definitions Functional [place] Measure: 0=Not Assessed/NA 4=Minimal Assistance 1=Total Assistance 5=Supervision or Setup 2=Maximal Assistance 6=Modified [place] 3=Moderate Assistance 7=Complete [place] Therapy Quality Codes: 6 Independent with activity with or without an assistive device 5 Patient requires set up or clean up by helper. Patient completes activity by themselves 4 Supervision or touching assist (CGA). [place] provide cues , steadying assist 3 The helper provides less than half the effort to complete the activity 2 The helper provides more than half the effort to complete the activity 1 Dependent. The helper does all the effort to complete an activity 7 Patient refused to complete or attempt activity 9 The patient did not perform the activity before the current illness or injury 88 Not attempted due to Medical conditions or safety concerns Pt. seen for co-treat with PT/OT due to pt's need for skilled assistance, and pt 's fatigue level. PT initiated transfer training and OT worked on UE strengthening to increase overall strength. Pt. practiced standing at parallel bars with assistance from PT. OT completed overhead reaching activity with pt. to facilitate strength, but also weight shifts, balance, and upright posture in stance. Pt. did well with this. Pt. then ambulated with walker with assist from PT, and close assist from OT with wheelchair. Stood with mod assist. Please see PT note for distance ambulated. Pt. participated in UE/LE strengthening and ROM exercises while seated. Completed 4 bilateral UE exercises x 10 reps with OT. Please see PT note for LE exercises. PT continued with pt. after treatment. Education OT Patient Education: Correct positioning, Exercise program, Modified ADL techniques, Progress toward Goal/Update tx plan, Purpose of tx/functional activities, Reviewed precautions, Rehab process, Transfer techniques Teaching Recipient: Patient Teaching Methods: Demonstration, Discussion Response to Teaching: Verbalize Understanding, Return Demonstration OT Short Term Goals Short Term Goals Time Frame: Jun 10, 2018 Eating(FIM): 7 Grooming(FIM): 6 Toileting(FIM): 3 Transfers (B,C,W/C) (FIM): 4 Toilet/Commode Transfer(FIM): 3 Additional Short Term Goals: 1-Demonstrate ADL Tasks, 2-Verbalize Understanding , 3-ImproveStrength/Araceli 1=Demonstrate adherence to instructed precautions during ADL tasks. 2=Patient will verbalize/demonstrate understanding of assistive devices/ modifications for ADL. 3=Patient will improve strength/tolerance for activity to enable patient to perform ADL's. OT Fdc Goals Fdc Goals Time Frame: Jun 24, 2018 Eating (FIM): 7 Eating (QC): 6 Groomin Oral Hygiene (QC): 6 Bathing(FIM): 5 Shower/Bathe Self (QC): 5 Upper Body Dressing(FIM): 6 Upper Body Dressing (QC): 6 Lower Body Dressing(FIM): 5 Lower Body Dressing (QC): 4 (SBA) On/Off Footwear (QC): 5 Toileting(FIM): 6 Toileting Hygiene (QC): 6 Toilet/Commode Transfer(FIM): 6 Toilet/Commode Transfer (QC): 6 Shower Transfer(FIM): 5 Additional Goals: 1-Demonstrate ADL Tasks, 2-Verbalize Understanding, 3- ImproveStrength/Araceli 1=Demonstrate adherence to instructed precautions during ADL tasks. 2=Patient will verbalize/demonstrate understanding of assistive devices/ modifications for ADL. 3=Patient will improve strength/tolerance for activity to enable patient to perform ADL's. OT Education/Plan Problem List/Assessment Assessment: Decreased Activ Tolerance, Decreased UE Strength, Dependent Transfers, Impaired I ADL's, Impaired Self-Care Skills Pt would benefit from skilled OT to increase his independence in basic self care to allow him to safely return home Discharge Recommendations Plan/Recommendations: Continue POC Therapy D/C Recommendations: Home w/ Family Support, Occupational Therapy Home Care Treatment Plan/Plan of Care Treatment,Training & Education: Yes Patient would benefit from OT for education, treatment and training to promote independence in ADL's, mobility, safety and/or upper extremity function for ADL' s. Plan of Care: ADL Retraining, Functional Mobility, Group Exercise/Act as Ind ( education, exercise, activity tolerance, functional mobility, funct activities, socialization), UE Funct Exercise/Act, UE Neuromus Re-Ed/Coord, W/C Management Training, OTHER (energy conservation and joint protection education and practice ) Treatment Duration: Jun 24, 2018 Frequency: At least 5 of 7 days/Wk (IRF) Estimated Hrs Per Day: 1.5 hours per day Agreement: Yes Rehab Potential: Good Time/GCodes Start Time: 10:15 Stop Time: 10:45 Total Time Billed (hr/min): 30 Billed Treatment Time 1, Ex x 15minutes, FA x 15minutes YESICA CARTWRIGHT OT Jun 04, 2018 15:19
[2018-06-04 17:15] VITALS: BP 152/86
[2018-06-04] MEDS: SIMvastatin 10 MG (ZOCOR) TAB PO SCH (20:07)
--- NOTE | 2018-06-04 20:52 | Consultation (CHS) ---
HPI History of Present Illness: Patient transferred to IRF for debility following ankle fracture. Patient has gouty arthritis and was starting a flare yesterday that has improved with steroids. Patient states that US was not done yesterday prior to transfer to IRF. No other concerns today. Source: patient Date seen by provider: Jun 04, 2018 Time Seen by Provider: 12:25 Attending Physician Oscar Miguel MD PCP Ryley Jones MD Consult Date of Admission Jun 03, 2018 at 13:00 Home Medications Home Medications Reviewed patient Home Medication Reconciliation performed by pharmacy medication reconciliations network operations center technician and/or nursing. Patients Allergies have been reviewed. Allergies Coded Allergies: Penicillins (Verified Allergy, Unknown, 01/31/16) GBK-[id number]-[id number] Hx Patient Social History Living Status: Living at home with Alcohol Use: Occasionally Uses Recreational Drug Use: No Smoking Status: Former Smoker Former smoker/When Quit: Jan 12, 1986 Type Used: Cigarettes, Smokeless Tobacco Recent Foreign Travel: No Contact w/other who traveled: No Recent Hopitalizations: No Recent Infectious Disease Expo: No Physical Abuse Screen: No Sexual Abuse: No Immunizations Up To Date Tetanus Booster (TDap): Unknown Date of Pneumonia Vaccine: Aug 08, 2013 Past Medical History Gouty Arthritis DM Family Medical History Significant Family History: No Pertinent Family Hx Family History: Diabetes mellitus 19 MOTHER PATERNAL GRANDFATHER Neoplasm 19 FATHER (THROAT CANCER-SMOKER) Review of Systems ([facility]C) Constitutional: no symptoms reported; No chills, No fever EENTM: no symptoms reported Respiratory: no symptoms reported; No cough, No dyspnea on exertion, No short of breath Cardiovascular: no symptoms reported; No chest pain, No edema, No palpitations Gastrointestinal: no symptoms reported; No abdominal pain, No constipation, No diarrhea, No nausea, No vomiting Genitourinary: no symptoms reported; No dysuria, No frequency, No hematuria Musculoskeletal: other (left knee swelling with warmth, normal ROM) Skin: no symptoms reported Psychiatric/Neurological: No Symptoms Reported Physical Exam-([facility]) Physical Exam Vital Signs VS - Last 72 Hours, by Label 06/03/18 06/03/18 06/04/18 06/04/18 13:00 17:06 06:36 17:15 Temp 97.0 98.2 98.2 98.4 Pulse 105 97 85 86 Resp 20 20 18 20 B/P (MAP) 121/90 (100) 126/81 (96) 148/73 (98) 152/86 (108) Pulse Ox 96 95 94 98 O2 Delivery Room Air Room Air Room Air Room Air Capillary Refill : General Appearance: WD/WN, no apparent distress Neck: non-tender, supple Respiratory: chest non-tender, lungs clear, normal breath sounds, no respiratory distress, no accessory muscle use Cardiovascular: normal peripheral pulses, regular rate, rhythm, no edema, no murmur Gastrointestinal: normal bowel sounds, non tender, soft, no organomegaly Back: no CVA tenderness Extremities: no pedal edema, no calf tenderness, other (Left knee with swelling and tenderness to palpation, Normal ROM) 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, no motor/sensory deficits, alert, normal mood/affect, oriented x 3 Skin: normal color, warm/dry Lymphatic: no adenopathy Assessment/Plan Assessment/Plan (1) Gout Status: Chronic Assessment & Plan: - Continue steroid x 5 total days Qualifiers: Qualified Codes: M10.9 - Gout, unspecified (2) Thyroid nodule Status: Acute Assessment & Plan: - Will make sure US is completed, normal TSH (3) Debility Status: Acute Assessment & Plan: - Treatment per Rehab physician (4) BMI 50.0-59.9, adult Status: Chronic (5) Rheumatoid arthritis Clinical Quality Measures DVT/VTE Risk/Contraindication: Risk Factor Score Per Nursin RFS Level Per Nursing on Admit: 4+=Very High Copy Copies To 1: ABHAY HERNANDEZ MD Jun 04, 2018 20:51
[2018-06-05 05:33] VITALS: BP 114/71
[2018-06-05] MEDS: metFORMIN 500 MG (GLUCOPHAGE) TAB PO SCH ×2 (06:15→17:00)
[2018-06-05] MEDS: KCL 10 MEQ TAB (MICRO K) PO SCH ×2 (06:15→17:00)
[2018-06-05] MEDS: CATHETER FLUSH 10 ML SYR IV SCH ×3 (06:15→19:46)
[2018-06-05] MEDS: predniSONE 20 MG TAB PO SCH (06:16)
[2018-06-05] MEDS: COLCHICINE 0.6 MG (COLCRYS) TABLET PO SCH (08:09)
[2018-06-05] MEDS: lisINopril 10 MG (PRINIVIL) TABLET PO SCH (08:09)
[2018-06-05] MEDS: ARIPIPRAZOLE 15 MG (ABILIFY) TAB PO SCH (08:09)
[2018-06-05] MEDS: ASPIRIN E.C. 81 MG (ECOTRIN) TAB PO SCH (08:10)
[2018-06-05] MEDS: ULORIC 80 MG PO SCH (08:11)
[2018-06-05] MEDS: IBUPROFEN 800 MG (MOTRIN) TAB PO PRN (08:15)
--- NOTE | 2018-06-05 08:55 | Occupational Ther Daily Note ---
OT Current Status-Daily Note Subjective Pt alert, lying in bed. Pt agrees to therapy. No c/o pain at this time. Nrsg had given pain meds. Mental Status/Objective Patient Orientation: Person, Place, Time, Situation Therapy Code Descriptions/Definitions Functional [place] Measure: 0=Not Assessed/NA 4=Minimal Assistance 1=Total Assistance 5=Supervision or Setup 2=Maximal Assistance 6=Modified [place] 3=Moderate Assistance 7=Complete [place] ADL-Treatment Pt declined shower and changing clothing today. Pt sat at sink to complete own grooming. Therapy Code Descriptions/Definitions Functional [place] Measure: 0=Not Assessed/NA 4=Minimal Assistance 1=Total Assistance 5=Supervision or Setup 2=Maximal Assistance 6=Modified [place] 3=Moderate Assistance 7=Complete [place] Therapy Quality Codes: 6 Independent with activity with or without an assistive device 5 Patient requires set up or clean up by helper. Patient completes activity by themselves 4 Supervision or touching assist (CGA). [place] provide cues , steadying assist 3 The helper provides less than half the effort to complete the activity 2 The helper provides more than half the effort to complete the activity 1 Dependent. The helper does all the effort to complete an activity 7 Patient refused to complete or attempt activity 9 The patient did not perform the activity before the current illness or injury 88 Not attempted due to Medical conditions or safety concerns Grooming (FIM): 6 Oral Hygiene (QC): 6 Pt able to go from supine to EOB by self then transferred using FWW with mod A from bed to w/c. Other Treatment Pt propelled w/c to <--> from gym to increase strength in UE's. Arm bike completed starting at 25 breaux resistance then decreased to 15 breaux resistance with 3 recovery breaks, 20 min, to increase strength and activity tolerance for daily functional tasks. After therapy, pt sitting in w/c in room with call light/phone in reach. All needs met in room. OT Short Term Goals Short Term Goals Time Frame: Jun 10, 2018 Eating(FIM): 7 Grooming(FIM): 6 Toileting(FIM): 3 Transfers (B,C,W/C) (FIM): 4 Toilet/Commode Transfer(FIM): 3 Additional Short Term Goals: 1-Demonstrate ADL Tasks, 2-Verbalize Understanding , 3-ImproveStrength/Araceli 1=Demonstrate adherence to instructed precautions during ADL tasks. 2=Patient will verbalize/demonstrate understanding of assistive devices/ modifications for ADL. 3=Patient will improve strength/tolerance for activity to enable patient to perform ADL's. OT Intermediate Goals Intermediate Goals Time Frame: Jun 24, 2018 Eating (FIM): 7 Eating (QC): 6 Groomin Oral Hygiene (QC): 6 Bathing(FIM): 5 Shower/Bathe Self (QC): 5 Upper Body Dressing(FIM): 6 Upper Body Dressing (QC): 6 Lower Body Dressing(FIM): 5 Lower Body Dressing (QC): 4 (SBA) On/Off Footwear (QC): 5 Toileting(FIM): 6 Toileting Hygiene (QC): 6 Toilet/Commode Transfer(FIM): 6 Toilet/Commode Transfer (QC): 6 Shower Transfer(FIM): 5 Additional Goals: 1-Demonstrate ADL Tasks, 2-Verbalize Understanding, 3- ImproveStrength/Araceli 1=Demonstrate adherence to instructed precautions during ADL tasks. 2=Patient will verbalize/demonstrate understanding of assistive devices/ modifications for ADL. 3=Patient will improve strength/tolerance for activity to enable patient to perform ADL's. OT Education/Plan Problem List/Assessment Pt would benefit from skilled OT to increase his independence in basic self care to allow him to safely return home Discharge Recommendations Plan/Recommendations: Continue POC Treatment Plan/Plan of Care Patient would benefit from OT for education, treatment and training to promote independence in ADL's, mobility, safety and/or upper extremity function for ADL' s. Plan of Care: ADL Retraining, Functional Mobility, Group Exercise/Act as Ind ( education, exercise, activity tolerance, functional mobility, funct activities, socialization), UE Funct Exercise/Act, UE Neuromus Re-Ed/Coord, W/C Management Training, OTHER (energy conservation and joint protection education and practice ) Treatment Duration: Jun 24, 2018 Frequency: At least 5 of 7 days/Wk (IRF) Estimated Hrs Per Day: 1.5 hours per day Agreement: Yes Rehab Potential: Good Time/GCodes Start Time: 08:00 Stop Time: 09:00 Total Time Billed (hr/min): 60 Billed Treatment Time 1 visit-ADL 1 (10 min) FA 2 (30 min) EX 1 (20 min) MIGUEL COREY Jun 05, 2018 08:55
--- NOTE | 2018-06-05 11:12 | Physical Therapy Daily Note ---
PT Daily Note-Current Subjective Pt reports he is hoping to go home next week. He indicates he was told 7-10 days is how long he would be in the hospital. Pt was encouraged not to kaufman discharge until he knows he can handle himself at home. Pt understands that concept. Transfers Therapy Code Descriptions/Definitions Functional [place] Measure: 0=Not Assessed/NA 4=Minimal Assistance 1=Total Assistance 5=Supervision or Setup 2=Maximal Assistance 6=Modified [place] 3=Moderate Assistance 7=Complete [place] Therapy Quality Codes: 6 Independent with activity with or without an assistive device 5 Patient requires set up or clean up by helper. Patient completes activity by themselves 4 Supervision or touching assist (CGA). [place] provide cues , steadying assist 3 The helper provides less than half the effort to complete the activity 2 The helper provides more than half the effort to complete the activity 1 Dependent. The helper does all the effort to complete an activity 7 Patient refused to complete or attempt activity 9 The patient did not perform the activity before the current illness or injury 88 Not attempted due to Medical conditions or safety concerns Transfers (B, C, W/C) (FIM): 4 Supine to/from Sit: 5 Sit to/from Stand: 5 Bed to/from Chair: 4 Pt needs cues to flex his knees and forward flex at the trunk for sit to stand. Occasional posterior loss of balance if chair scoots backwards from pt knee extension pressing into the seat. Performed simulated car transfer x 1 trial with SBA and verbal cues for sequence and use of UE to lift the legs into the car. Weight Bearing Right Lower Extremity: Right Weight Bearing/Tolerated Left Lower Extremity: Left Full Weight Bearing Gait Training Gait (FIM): 2 Distance: 75 Gait Level of Assist: 4 Gait Persons Needed: 1 Gait Assistive Device: FWW Ambulate 75ft x 8 trials using FWW and CGA. Pt needs cues to keep walker on the floor and use it for balance assist. Pt also need cuing to flex the knees during sit to stand. Stair Training #of Steps: 2 Stairs: Pattern: Step to Level of Assist: 4 Educate on sequence for up and down stairs/ curb. Pt up and down curb in parallel bars x 2 trials with CGA. Pt leads with the right leg which is stronger. Exercises Supine Ex: Bridging, Rolling, Lower trunk rotation, Heel Slides, Knee to chest , Short Arc Quads, Straight leg raise, Hip abd/add Supine Reps: 20 Standing: Sit to Stand Standing Reps: 8 Supine exercises with active assist as needed to achieve end range. worked seated posterior knee mobs with passive end range stetching, ankle anterior mobs followed by standing and sitting DF stretch using pt body weight to proved stretch Assessment Current Status: Excellent Progress Pt making rapid gains regarding transfers and ambulation. Able to walk increased distance with walker this session and also able to do stair training. Pt will benefit from continued PT to promote discharge to home. PT Short Term Goals Short Term Goals Time Frame: Jun 10, 2018 Transfers (B,C,W/C) (FIM): 4 Gait (FIM): 4 Distance (FIM): 3=150 ft Gait Assistive Device: FWW Wheelchair (FIM): 6 Wheelchair Distance: 120'x2 Stairs (FIM): 2 # of Steps: 4 PT Mcc Goals Glass Cutter Helper Goals PT Mcc Goals Time Frame: Jun 24, 2018 Transfers (B,C,W/C) (FIM): 7 Sit to Lying (QC): 6 Lying-Sitting on Side/Bed(QC): 6 Sit to Stand (QC): 6 Rollin Roll Left to Right (QC): 6 Chair/Fae-ud-Dowbc Xfer(QC): 6 Car Transfer (QC): 6 Does the Patient Walk: Yes Gait (FIM): 6 Gait distance (FIM): 3=150 ft Walk 10 feet (QC): 6 Walk 10ft-Uneven Surface(QC): 6 Walk 50ft with 2 Turns (QC): 6 Walk 150 ft (QC): 6 Gait Assistive Device: FWW Wheelchair (FIM): 6 Stairs (FIM): 5 # of Steps: 4 1 Step (curb) (QC): 6 4 Steps (QC): 6 12 Steps (QC): 88 Stairs Level Of Assist: 6 Picking up an Object (QC): 4 PT Plan Problem List Problem List: Balance, Gait, Transfer Treatment/Plan Treatment Plan: Continue Plan of Care Treatment Plan: Bed Mobility, Education, Functional Activity Araceli, Functional Strength, Group Therapy, Gait, Safety, Therapeutic Exercise, Transfers Treatment Duration: Jun 24, 2018 Frequency: At least 5 of 7 days/Wk (IRF) Estimated Hrs Per Day: 1.5 hours per day Patient and/or Family Agrees t: Yes Time/GCodes Time In: 900 Time Out: 1000 Total Billed Treatment Time: 60 Total Billed Treatment visit, gait 30min, FA 10 min, ex 20 min HENRY DO PT Jun 05, 2018 11:12
--- NOTE | 2018-06-05 15:02 | Therapy Group Daily Note ---
Therapy Daily Group Note Patient Education Topic Other List Below (MSU description/expectations, memory, benefits of exercise) Exercises LE Seated Exercise, Fine Motor Other/Notes Pt transported via w/c to [facility] for OT/PT group. Group consisted of introductions (name, place living, reason admitted to [facility]), socialization, education topics (ARU, exercise, memory), UE/LE seated exercises and memory activities. Pt introduced self appropriately and actively listened to peers. Verbalized understanding of educational topics and was able to stated personal strategies. Pt contributed to conversation to peers and actively initiated conversations. Pt was able to follow direction and complete seated exercises. After therapy, pt sitting in w/c with call light/phone in reach. All needs met in room. Start Time: 13:00 Stop Time: 14:15 Total Billed Treatment Time: 75 Total Billed Treatment 1-GRP MIGUEL COREY Jun 05, 2018 15:02
--- NOTE | 2018-06-05 16:43 | PM & R (SOAP) Progress Note ---
Subjective This was a face to face visit with the patient. Date Seen by Provider: Jun 05, 2018 Time Seen by Provider: 16:20 Subjective/Events-last exam Patient was seen in HIS ROOM THIS EVENING.pATIENT MIN ASSIST FOR TRANSFERS.pAIN DECREASING FLARE OF GOUT RECEDES WITH PREDNISONE AND COLCHICINE Objective Physician Exam Last Set of Vital Signs Vital Signs Date Time Temp Pulse Resp B/P (MAP) Pulse Ox O2 Delivery O2 Flow Rate FiO2 06/05/18 05:33 99.0 94 18 114/71 (85) 96 Room Air Capillary Refill : I&O Intake and Output 06/05/18 00:00 Intake Total 1250 ml Output Total 1525 ml Balance -275 ml Intake Oral 1250 ml Output Urine Total 1525 ml General: Alert, Oriented X3, Cooperative, No Acute Distress HEENT: Atraumatic, PERRLA, EOMI, Mucous Memb Moist/[place] Neck: Supple, No JVD Lungs: Clear to Auscultation Heart: Regular Rate Abdomen: Normal Bowel Sounds, Soft, No Tenderness Extremities: Other (pedal edema) Neuro: Other (Strength 3+5 both lower limbs and lacks full active Knee extension RT 20 degrees whixh he attributes to gout) Results Lab Data Laboratory Tests 06/04/18 05:49: Glucometer 143H 06/05/18 05:20: Glucometer 139H Assessment/Plan Assessment and Plan fLARE OF GOPUT IMPROVING WITH COURSE OF STEROIDS ra s/p RT ANKLE FRACTURE TREATED NONSURGICALLY tHYROID NODULE aTYPICAL CHEST PAIN NON RECURRENT hYPOKALEMIA REPLACEMENT ORDERED dEPRESSION ON MED dm CONTROLLED htn CONTROLLED pLAN cONTINUE pt/ot tEAM cONFERENCE NEXT WEEK gOAL RETURN HOME WITH SPOUSE mODIFIED iNDEPENDENT TO SUPERVISION FOR ADLS AND MOBILITY SKILLS Co-Morbidities that are continuing to impact the rehab process: (include details ) SHANIQUA ANTUNEZ MD Jun 05, 2018 16:43
[2018-06-05 16:53] VITALS: BP 160/78
--- NOTE | 2018-06-05 17:26 | Individualized Plan of Care ---
Individualized Plan of Care Rehab Nursing IPOC Order Admission Date Jun 03, 2018 at 13:00 Current Orders Orders Pt Evaluate/Treat Request (06/03/18 12:01) Request Ot Evaluate & Treat (06/03/18 12:01) Request For Cognitive Services (06/03/18 12:01) Influenza Quad (5+Yoa) 2017- (Afluria (06/03/18 14:30) Ambulate 08,12,20 (06/03/18 14:27) Sequential Compression Device 08,20 (06/03/18 14:27) Dvt/Vte Risk - Notifiy Physici 08 (06/03/18 14:27) Admission Order(Inpt,Obs,Sdc) (06/03/18 14:33) Vital Signs: Routine (Order) 08,16,00 (06/03/18 14:33) Window Glazier Helper-Inpt Rehab Con (06/03/18 14:33) Rehab Nursing Orders-Ipoc (06/03/18 14:33) Cho 60g/M 1snack (16-2000 Shahzad) (06/03/18 Dinner) Turn And Reposition Q2HR (06/03/18 14:33) Intake & Output 06,14,22 (06/03/18 14:33) Accucheck Daily DBID (06/03/18 14:33) Precautions (Aru) (06/03/18 14:33) Weekly Weight (Lbs) WEEK (06/03/18 14:33) Code/Resuscitation (06/03/18 14:33) Initiate Admission Nursing Pro .admission (06/03/18 14:33) Aspirin Enteric Coated Tablet (Ecotrin T (06/04/18 09:00) Aripiprazole Tablet (Abilify Tablet) (06/04/18 09:00) Colchicine Tablet (Colcrys Tablet) (06/04/18 09:00) Ibuprofen Tablet (Motrin Tablet) (06/03/18 14:45) Lisinopril Tablet (Zestril Tablet) (06/04/18 09:00) Metformin Tablet (Glucophage Tablet) (06/03/18 17:00) Potassium Chloride (Tablet) (Klor Con Ta (06/03/18 17:00) Pharmacy Communication (Pharmacy Communi (06/03/18 14:45) Patient Visit (06/03/18 ) Pt Eval Moderate Complexity (06/03/18 ) Simvastatin Tablet (Zocor Tablet) (06/03/18 21:00) Prednisone Tablet (Deltasone Tablet) (06/04/18 07:00) Patient Visit (06/03/18 ) Wheelchair Mgmt/Propulsn 15min (06/03/18 ) Exercise Therap, Ea 15 Min (06/03/18 ) Functional Activities, Ea 15 (06/03/18 ) Patient Visit (06/03/18 ) Speech Sound Lang Comp (06/03/18 ) Patient's Own Med(Rx Use Only) (Patient' (06/04/18 09:00) Potassium Chloride (Tablet) (K Dur Table (06/03/18 16:30) Sodium Chloride Flush (Catheter Flush Sy (06/03/18 16:30) Sodium Chloride Flush (Catheter Flush Sy (06/03/18 22:00) Consult Physician (06/03/18 19:35) Patient Visit (06/04/18 ) Wheelchair Mgmt/Propulsn 15min (06/04/18 ) Exercise Therap, Ea 15 Min (06/04/18 ) Gait Training, Ea 15 Min (06/04/18 ) Ex Neuromuscular, Ea 15 Min (06/04/18 ) Patient Visit (06/04/18 ) Exercise Therap, Ea 15 Min (06/04/18 ) Patient Visit (06/05/18 ) Exercise Therap, Ea 15 Min (06/05/18 ) Functional Activities, Ea 15 (06/05/18 ) Gait Training, Ea 15 Min (06/05/18 ) Patient Visit (06/05/18 ) Rehab Nursing Orders: Ongoing Assess. of Cognitive Status, Ongoing Assess. of Function Status, Disease Management & Educaiton, DVT Prophylaxis, Fall Prevention, Fluid/Electrolyte/Nutrition Mgmt, Infection Prevention, Medication Management & Education, Management of Risks & Complications, Management of Skin Intergrity, Nutrition Management, Pain Management, Patient/Family Support PT IPOC Problem List: Balance, Gait, Transfer Treatment Plan: Continue Plan of Care Bed Mobility, Education, Functional Activity Araceli, Functional Strength, Group Therapy, Gait, Safety, Therapeutic Exercise, Transfers Treatment Duration: Jun 24, 2018 Frequency: At least 5 of 7 days/Wk (IRF) Estimated Hrs Per Day: 1.5 hours per day OT IPOC Problems: Decreased Activ Tolerance, Decreased UE Strength, Dependent Transfers , Impaired I ADL's, Impaired Self-Care Skills OT Treatment, Training and Edu: Yes OT Problems Pt would benefit from skilled OT to increase his independence in basic self care to allow him to safely return home Plan of Care: ADL Retraining, Functional Mobility, Group Exercise/Act as Ind ( education, exercise, activity tolerance, functional mobility, funct activities, socialization), UE Funct Exercise/Act, UE Neuromus Re-Ed/Coord, W/C Management Training, OTHER (energy conservation and joint protection education and practice ) Treatment Duration: Jun 24, 2018 Frequency: At least 5 of 7 days/Wk (IRF) Estimated Hrs Per Day: 1.[address] IPOC Speech Therapy Treatment Plan: Modify Plan, See Comments Treatment Duration: Jun 05, 2018 Frequency: 1 time per week Estimated Hrs Per Day: Other Window Glazier Helper/Case Mgmt Window Glazier Helper/Case Managemen: Discharge Planning, Patient/Family Counseling Dietitian/Shingle Carrier Dietitian/Shingle Carrier to monitor nutritional status and make changes and/or recommendations as needed and work with speech pathology on dietary upgrades as the occur. Physician IPOC Medical Issues being managed closely and that require the 24 hour availability of a physician: dm gOUT ra oa diane c CODE 06.1 eTIOLOGIC dx fLARE OF GOUT Medical Issues: DVT Prophylaxis, Falls Precautions, Fluid/Electrolyte/ Nutrition Balance, Infection Protection, Pain Management, Other (List) ( PER ABOVE ON PREDNISONE TAPER) Brief Synthesis of Preadmission Screen, Post-Admission Evaluation, and Therapy Evaluations:52 YO DISABLED MALE WHO WAS ADMITTED FOR TREATMENT OF fLARE OF GOUT AFFECTING HIS MOBILITY and now on prednisone taper and improving with decreased pain PMH RT Ankle fracture GOUT RA DIANE Medical Prognosis: Good Anticipated Length of Stay: 06-24-17 Modified Independent for adls and mobility skills Anticipated d/c Destination: Home with spouse SHANIQUA ANTUNEZ MD Jun 05, 2018 17:26
[2018-06-05] MEDS: SIMvastatin 10 MG (ZOCOR) TAB PO SCH (20:10)
[2018-06-06 05:27] VITALS: BP 143/88
[2018-06-06] MEDS: KCL 10 MEQ TAB (MICRO K) PO SCH ×2 (06:06→16:25)
[2018-06-06] MEDS: metFORMIN 500 MG (GLUCOPHAGE) TAB PO SCH ×2 (06:06→16:25)
[2018-06-06] MEDS: predniSONE 20 MG TAB PO SCH (06:06)
--- NOTE | 2018-06-06 08:28 | Physical Therapy Daily Note ---
PT Daily Note-Current Subjective Patient in recliner pre tx, agrees to PT, no complaints of pain. Appearance Patient in wheelchair at bedside post tx, has nurse call, phone, tray, all needs met. Mental Status Patient Orientation: Person, Place, Situation Transfers Therapy Code Descriptions/Definitions Functional [place] Measure: 0=Not Assessed/NA 4=Minimal Assistance 1=Total Assistance 5=Supervision or Setup 2=Maximal Assistance 6=Modified [place] 3=Moderate Assistance 7=Complete [place] Therapy Quality Codes: 6 Independent with activity with or without an assistive device 5 Patient requires set up or clean up by helper. Patient completes activity by themselves 4 Supervision or touching assist (CGA). [place] provide cues , steadying assist 3 The helper provides less than half the effort to complete the activity 2 The helper provides more than half the effort to complete the activity 1 Dependent. The helper does all the effort to complete an activity 7 Patient refused to complete or attempt activity 9 The patient did not perform the activity before the current illness or injury 88 Not attempted due to Medical conditions or safety concerns Transfers (B, C, W/C) (FIM): 4 Sit to/from Stand: 4 Bed to/from Chair: 4 Cues for hand placement and safety. Weight Bearing Right Lower Extremity: Right Weight Bearing/Tolerated Left Lower Extremity: Left Full Weight Bearing Exercises NuStep Minutes: 10 NuStep Workload: 5 Treatments wheelchair mobility, transfers, functional strengthening Assessment Current Status: Fair Progress Patient needed several rest breaks on NuStep due to fatigue PT Short Term Goals Short Term Goals Time Frame: Jun 10, 2018 Transfers (B,C,W/C) (FIM): 4 Gait (FIM): 4 Distance (FIM): 3=150 ft Gait Assistive Device: FWW Wheelchair (FIM): 6 Wheelchair Distance: 120'x2 Stairs (FIM): 2 # of Steps: 4 PT Inventory Associate And Driver Goals Inventory Associate And Driver Goals PT Snf Goals Time Frame: Jun 24, 2018 Transfers (B,C,W/C) (FIM): 7 Sit to Lying (QC): 6 Lying-Sitting on Side/Bed(QC): 6 Sit to Stand (QC): 6 Rollin Roll Left to Right (QC): 6 Chair/Ern-rd-Gqvfo Xfer(QC): 6 Car Transfer (QC): 6 Does the Patient Walk: Yes Gait (FIM): 6 Gait distance (FIM): 3=150 ft Walk 10 feet (QC): 6 Walk 10ft-Uneven Surface(QC): 6 Walk 50ft with 2 Turns (QC): 6 Walk 150 ft (QC): 6 Gait Assistive Device: FWW Wheelchair (FIM): 6 Stairs (FIM): 5 # of Steps: 4 1 Step (curb) (QC): 6 4 Steps (QC): 6 12 Steps (QC): 88 Stairs Level Of Assist: 6 Picking up an Object (QC): 4 PT Plan Problem List Problem List: Activity Tolerance, Functional Strength, Safety, Balance, Gait, Transfer, Bed Mobility, ROM Treatment/Plan Treatment Plan: Continue Plan of Care Treatment Plan: Bed Mobility, Education, Functional Activity Araceli, Functional Strength, Group Therapy, Gait, Safety, Therapeutic Exercise, Transfers Treatment Duration: Jun 24, 2018 Frequency: At least 5 of 7 days/Wk (IRF) Estimated Hrs Per Day: 1.5 hours per day Patient and/or Family Agrees t: Yes Safety Risks/Education Patient Education: Transfer Techniques, Correct Positioning, W/C Management, Safety Issues Teaching Recipient: Patient Teaching Methods: Demonstration, Discussion Response to Teaching: Reinforcement Needed Time/GCodes Time In: 0805 Time Out: 0825 Total Billed Treatment Time: 20 Total Billed Treatment 1 visit EX JEWEL TOMAS PT Jun 06, 2018 08:28
[2018-06-06] MEDS: COLCHICINE 0.6 MG (COLCRYS) TABLET PO SCH (08:40)
[2018-06-06] MEDS: lisINopril 10 MG (PRINIVIL) TABLET PO SCH (08:40)
[2018-06-06] MEDS: ASPIRIN E.C. 81 MG (ECOTRIN) TAB PO SCH (08:40)
[2018-06-06] MEDS: ARIPIPRAZOLE 15 MG (ABILIFY) TAB PO SCH (08:40)
[2018-06-06] MEDS: ULORIC 80 MG PO SCH (08:41)
--- NOTE | 2018-06-06 08:59 | PM & R (SOAP) Progress Note ---
Subjective This was a face to face visit with the patient. Date Seen by Provider: Jun 06, 2018 Time Seen by Provider: 07:50 Subjective/Events-last exam Patient was seen in his room this AM Patient Min assist for transfers Pain decreasing Accucheks ok Objective Physician Exam Last Set of Vital Signs Vital Signs Date Time Temp Pulse Resp B/P (MAP) Pulse Ox O2 Delivery O2 Flow Rate FiO2 06/06/18 05:27 98.4 87 16 143/88 (106) 91 Room Air Capillary Refill : I&O Intake and Output 06/06/18 00:00 Intake Total 1480 ml Output Total 1600 ml Balance -120 ml Intake Oral 1480 ml Output Urine Total 1600 ml # Bowel Movements 1 General: Alert, Oriented X3, Cooperative, No Acute Distress HEENT: Atraumatic, PERRLA, EOMI, Mucous Memb Moist/[place] Neck: Supple, No JVD Lungs: Clear to Auscultation Heart: Regular Rate Abdomen: Normal Bowel Sounds, Soft, No Tenderness Extremities: Other (pedal edema) Neuro: Other (Strength 3+5 both lower limbs and lacks full active Knee extension RT 20 degrees whixh he attributes to gout) Results Lab Data Laboratory Tests 06/04/18 05:49: Glucometer 143H 06/05/18 05:20: Glucometer 139H 06/06/18 06:06: Glucometer 136H Assessment/Plan Assessment and Plan Flare of gout improving with course of steroids RA S/P RT ankle fracture treated nonsurgically Thyroid nodule Atypical chest pain nonrecurrent Hypokalemia treated Depression on med DM controlled HTN controlled Plan Continue PT/OT Team Conference next week Taper steroid Co-Morbidities that are continuing to impact the rehab process: (include details ) SHANIQUA ANTUNEZ MD Jun 06, 2018 08:59
[2018-06-06] MEDS: ENOXAPARIN 40 MG/0.4 ML (LOVENOX) SYR SC SCH ×2 (11:45→23:45)
[2018-06-06 18:00] VITALS: BP 148/79
[2018-06-06] MEDS: SIMvastatin 10 MG (ZOCOR) TAB PO SCH (20:34)
[2018-06-07 05:03] VITALS: BP 144/90
[2018-06-07] MEDS: predniSONE 20 MG TAB PO SCH (06:10)
[2018-06-07] MEDS: KCL 10 MEQ TAB (MICRO K) PO SCH ×2 (06:10→17:21)
[2018-06-07] MEDS: metFORMIN 500 MG (GLUCOPHAGE) TAB PO SCH ×2 (06:10→17:20)
[2018-06-07] MEDS: ARIPIPRAZOLE 15 MG (ABILIFY) TAB PO SCH (08:00)
[2018-06-07] MEDS: ASPIRIN E.C. 81 MG (ECOTRIN) TAB PO SCH (08:00)
[2018-06-07] MEDS: COLCHICINE 0.6 MG (COLCRYS) TABLET PO SCH (08:00)
[2018-06-07] MEDS: ULORIC 80 MG PO SCH (08:02)
[2018-06-07] MEDS: lisINopril 10 MG (PRINIVIL) TABLET PO SCH (08:02)
[2018-06-07] MEDS: ENOXAPARIN 40 MG/0.4 ML (LOVENOX) SYR SC SCH ×2 (11:57→23:19)
[2018-06-07 18:00] VITALS: BP 135/94
[2018-06-07] MEDS: SIMvastatin 10 MG (ZOCOR) TAB PO SCH (21:43)
[2018-06-08] MEDS: metFORMIN 500 MG (GLUCOPHAGE) TAB PO SCH ×2 (05:47→17:07)
[2018-06-08] MEDS: KCL 10 MEQ TAB (MICRO K) PO SCH ×2 (05:47→17:07)
[2018-06-08 05:50] VITALS: BP 143/84
[2018-06-08] MEDS: ASPIRIN E.C. 81 MG (ECOTRIN) TAB PO SCH (08:32)
[2018-06-08] MEDS: COLCHICINE 0.6 MG (COLCRYS) TABLET PO SCH (08:32)
[2018-06-08] MEDS: lisINopril 10 MG (PRINIVIL) TABLET PO SCH (08:32)
[2018-06-08] MEDS: ARIPIPRAZOLE 15 MG (ABILIFY) TAB PO SCH (08:32)
[2018-06-08] MEDS: ULORIC 80 MG PO SCH (08:33)
--- NOTE | 2018-06-08 09:25 | Occupational Ther Daily Note ---
OT Current Status-Daily Note Subjective Pt alert, sitting EOB. Pt agrees to therapy. No c/o pain. Pt asking about leaving Friday, discussed getting a day pass instead. Mental Status/Objective Patient Orientation: Person, Place, Time, Situation Therapy Code Descriptions/Definitions Functional [place] Measure: 0=Not Assessed/NA 4=Minimal Assistance 1=Total Assistance 5=Supervision or Setup 2=Maximal Assistance 6=Modified [place] 3=Moderate Assistance 7=Complete [place] ADL-Treatment Min A for SPT from EOB to w/c. Pt maneuvered w/c to large shower room. Pt then use grabbars to stand so shower chair could be placed under him. After therapy, pt in room sitting in w/c with call light/phone in reach. All needs met in room. Therapy Code Descriptions/Definitions Functional [place] Measure: 0=Not Assessed/NA 4=Minimal Assistance 1=Total Assistance 5=Supervision or Setup 2=Maximal Assistance 6=Modified [place] 3=Moderate Assistance 7=Complete [place] Therapy Quality Codes: 6 Independent with activity with or without an assistive device 5 Patient requires set up or clean up by helper. Patient completes activity by themselves 4 Supervision or touching assist (CGA). [place] provide cues , steadying assist 3 The helper provides less than half the effort to complete the activity 2 The helper provides more than half the effort to complete the activity 1 Dependent. The helper does all the effort to complete an activity 7 Patient refused to complete or attempt activity 9 The patient did not perform the activity before the current illness or injury 88 Not attempted due to Medical conditions or safety concerns Grooming (FIM): 6 (Sitting in w/c, pt able to complete grooming at sink.) Oral Hygiene (QC): 6 Bathing (FIM): 4 (Using shower chair with cutout, pt able to complete using long handle sponge, grabbars and hand held shower. Pt sat to cleanse buttocks. Assist to dry buttocks in standing.) Bathing Location: L Arm, R Arm, L Upper Leg, R Upper Leg, L Lower Leg ( including foot), R Lower Leg (including foot), Chest, Abdomen, Buttocks, Perineal Area Shower/Bathe Self (QC): 3 Upper Body (FIM): 5 (After set up, pt able to complete by self.) Upper Body Dressing (QC): 5 Lower Body Dressing (FIM): 3 (Assist to doff socks and to use sock aide to don. Pt able to don/doff clothing over feet then SBA while balance self with head on wall to hike pants over hips.) Lower Body Dressing (QC): 3 On/Off Footwear (QC): 2 Shower Transfer(FIM): 4 (Pt pulled to stand with grabbars then assist to switch w/c <--> shower chair with cutout.) OT Short Term Goals Short Term Goals Time Frame: Jun 10, 2018 Eating(FIM): 7 Grooming(FIM): 6 Toileting(FIM): 3 Transfers (B,C,W/C) (FIM): 4 Toilet/Commode Transfer(FIM): 3 Additional Short Term Goals: 1-Demonstrate ADL Tasks, 2-Verbalize Understanding , 3-ImproveStrength/Araceli 1=Demonstrate adherence to instructed precautions during ADL tasks. 2=Patient will verbalize/demonstrate understanding of assistive devices/ modifications for ADL. 3=Patient will improve strength/tolerance for activity to enable patient to perform ADL's. OT Longterm Goals Longterm Goals Time Frame: Jun 24, 2018 Eating (FIM): 7 Eating (QC): 6 Groomin Oral Hygiene (QC): 6 Bathing(FIM): 5 Shower/Bathe Self (QC): 5 Upper Body Dressing(FIM): 6 Upper Body Dressing (QC): 6 Lower Body Dressing(FIM): 5 Lower Body Dressing (QC): 4 (SBA) On/Off Footwear (QC): 5 Toileting(FIM): 6 Toileting Hygiene (QC): 6 Toilet/Commode Transfer(FIM): 6 Toilet/Commode Transfer (QC): 6 Shower Transfer(FIM): 5 Additional Goals: 1-Demonstrate ADL Tasks, 2-Verbalize Understanding, 3- ImproveStrength/Araceli 1=Demonstrate adherence to instructed precautions during ADL tasks. 2=Patient will verbalize/demonstrate understanding of assistive devices/ modifications for ADL. 3=Patient will improve strength/tolerance for activity to enable patient to perform ADL's. OT Education/Plan Problem List/Assessment Pt would benefit from skilled OT to increase his independence in basic self care to allow him to safely return home Discharge Recommendations Plan/Recommendations: Continue POC Treatment Plan/Plan of Care Patient would benefit from OT for education, treatment and training to promote independence in ADL's, mobility, safety and/or upper extremity function for ADL' s. Plan of Care: ADL Retraining, Functional Mobility, Group Exercise/Act as Ind ( education, exercise, activity tolerance, functional mobility, funct activities, socialization), UE Funct Exercise/Act, UE Neuromus Re-Ed/Coord, W/C Management Training, OTHER (energy conservation and joint protection education and practice ) Treatment Duration: Jun 24, 2018 Frequency: At least 5 of 7 days/Wk (IRF) Estimated Hrs Per Day: 1.5 hours per day Agreement: Yes Rehab Potential: Good Time/GCodes Start Time: 08:00 Stop Time: 09:05 Total Time Billed (hr/min): 65 Billed Treatment Time 1 visit-ADL 4 (65 min) MIGUEL COREY Jun 08, 2018 09:25
[2018-06-08] MEDS: ENOXAPARIN 40 MG/0.4 ML (LOVENOX) SYR SC SCH ×2 (11:46→23:37)
--- NOTE | 2018-06-08 11:56 | Physical Therapy Daily Note ---
PT Daily Note-Current Subjective Pt. expresses that he really wants to go home on Wed if he can. Pt. c/o fatigue after the Rx. Was happy to learn how to use the lift recliner chair. Pain Numeric Pain Scale: 0-No Pain Mental Status Patient Orientation: Normal For Age Transfers Therapy Code Descriptions/Definitions Functional [place] Measure: 0=Not Assessed/NA 4=Minimal Assistance 1=Total Assistance 5=Supervision or Setup 2=Maximal Assistance 6=Modified [place] 3=Moderate Assistance 7=Complete [place] Therapy Quality Codes: 6 Independent with activity with or without an assistive device 5 Patient requires set up or clean up by helper. Patient completes activity by themselves 4 Supervision or touching assist (CGA). [place] provide cues , steadying assist 3 The helper provides less than half the effort to complete the activity 2 The helper provides more than half the effort to complete the activity 1 Dependent. The helper does all the effort to complete an activity 7 Patient refused to complete or attempt activity 9 The patient did not perform the activity before the current illness or injury 88 Not attempted due to Medical conditions or safety concerns Transfers (B, C, W/C) (FIM): 5 Scootin Rollin Supine to/from Sit: 5 Sit to/from Stand: 5 Bed to/from Chair: 5 Car Transfer (QC): 5 many sit to stands for hip strengthening and function Weight Bearing Right Lower Extremity: Right Weight Bearing/Tolerated Left Lower Extremity: Left Full Weight Bearing Gait Training Does the Patient Walk?: Yes Gait (FIM): 2 Distance (FIM): 7=424-88 ft (478krs8, 50ft) Gait Level of Assist: 4 Gait Persons Needed: 1 Gait Assistive Device: FWW w/c to follow Wheelchair Training Does the Pt Use a Wheelchair?: Yes Wheelchair (FIM): 6 Wheelchair Distance: 3=150 ft (175x2) Wheelchair Level of Assist: 6 Type of Wheelchair: Manual Stair Training Stair Training: Handrails/: 2 handrails Stairs (FIM): 2 #of Steps: 4 Stairs: Pattern: Step to Level of Assist: 3 pt. needs instruction for sequence as well as safety, as descending pt barely has heel hanging on step as other foot descends Exercises Supine Ex: Bridging, Ankle pumps, Quad Set, Rolling, Glut sets, Heel Slides, Short Arc Quads, Scooting, Straight leg raise, Hip abd/add (sidelying) Supine Reps: 15 Seated Therapy Exercises: Ankle pumps, Sit to stand, Long arc quads, Hip flexion, Hip abd/add Seated Reps: 12 Standing: Floor clock, Heel/toe raises, Marching, Mini squats Standing Reps: 12 prone ham curls , glut sets and hip extensions x 12 Assessment Current Status: Good Progress gives full effort, steady progress PT Short Term Goals Short Term Goals Time Frame: Jun 10, 2018 Transfers (B,C,W/C) (FIM): 4 Gait (FIM): 4 Distance (FIM): 3=150 ft Gait Assistive Device: FWW Wheelchair (FIM): 6 Wheelchair Distance: 120'x2 Stairs (FIM): 2 # of Steps: 4 PT Longterm Goals Longterm Goals PT Regulatory Product Manager Goals Time Frame: Jun 24, 2018 Transfers (B,C,W/C) (FIM): 7 Sit to Lying (QC): 6 Lying-Sitting on Side/Bed(QC): 6 Sit to Stand (QC): 6 Rollin Roll Left to Right (QC): 6 Chair/Pgk-ra-Qaraj Xfer(QC): 6 Car Transfer (QC): 6 Does the Patient Walk: Yes Gait (FIM): 6 Gait distance (FIM): 3=150 ft Walk 10 feet (QC): 6 Walk 10ft-Uneven Surface(QC): 6 Walk 50ft with 2 Turns (QC): 6 Walk 150 ft (QC): 6 Gait Assistive Device: FWW Wheelchair (FIM): 6 Stairs (FIM): 5 # of Steps: 4 1 Step (curb) (QC): 6 4 Steps (QC): 6 12 Steps (QC): 88 Stairs Level Of Assist: 6 Picking up an Object (QC): 4 PT Plan Treatment/Plan Treatment Plan: Continue Plan of Care Treatment Plan: Bed Mobility, Education, Functional Activity Araceli, Functional Strength, Group Therapy, Gait, Safety, Therapeutic Exercise, Transfers Treatment Duration: Jun 24, 2018 Frequency: At least 5 of 7 days/Wk (IRF) Estimated Hrs Per Day: 1.5 hours per day Patient and/or Family Agrees t: Yes Safety Risks/Education Patient Education: Gait Training, Transfer Techniques, Steps, Correct Positioning, Disease Process, Safety Issues Teaching Recipient: Patient Teaching Methods: Demonstration, Discussion Response to Teaching: Verbalize Understanding, Return Demonstration, Reinforcement Needed (steps) Time/GCodes Time In: 1100 Time Out: 1200 Total Billed Treatment Time: 60 Total Billed Treatment 1,GT20m,EX25m,FA15m G Codes Necessary: MEREDITH Monteiro CLINICAL TRIALS NURSE Jun 08, 2018 11:55
--- NOTE | 2018-06-08 14:37 | Therapy Group Daily Note ---
Therapy Daily Group Note Patient Education Topic Other List Below (see below) Exercises LE Seated Exercise, UE Exercise Other/Notes Pt. participated in group PT OT ST session this date. Pt. came and went by w/c . Pt. was pleasant and participated well, was social and interacted as lead. Pts. were educated in proper handwashing, disease prevention and the benefits of exercise . Pts all participated in foam dice roll to engage in exercise which was pt. lead by reading from written illustrated cards. Pt. also participated in memory game to recall 5 words from Friday group. Pt. with CGA to chair after Rx. Cloud at hand Start Time: 13:00 Stop Time: 14:05 Total Billed Treatment Time: 65 Total Billed Treatment 1,GRP MEREDITH ANDERSON CENTRAL SUPPLY SUPERVISOR Jun 08, 2018 14:37
[2018-06-08 16:18] VITALS: BP 105/62
--- NOTE | 2018-06-08 19:48 | PM & R (SOAP) Progress Note ---
Subjective This was a face to face visit with the patient. Date Seen by Provider: Jun 08, 2018 Time Seen by Provider: 18:45 Subjective/Events-last exam Patient was seen in his room this evening Patient SBA for transfers Date Identified: Jun 08, 2018 Time Identified: 18:40 Medication Intervention: Lovenox dose adjusted Objective Physician Exam Last Set of Vital Signs Vital Signs Date Time Temp Pulse Resp B/P (MAP) Pulse Ox O2 Delivery O2 Flow Rate FiO2 06/08/18 17:29 Room Air 06/08/18 16:18 97.6 89 14 105/62 (76) 96 Capillary Refill : I&O Intake and Output 06/08/18 00:00 Intake Total 2400 ml Output Total 2450 ml Balance -50 ml Intake Oral 2400 ml Output Urine Total 2450 ml # Bowel Movements 1 General: Alert, Oriented X3, Cooperative, No Acute Distress HEENT: Atraumatic, PERRLA, EOMI, Mucous Memb Moist/[place] Neck: Supple, No JVD Lungs: Clear to Auscultation Heart: Regular Rate Abdomen: Normal Bowel Sounds, Soft, No Tenderness Extremities: Other (pedal edema) Neuro: Other (Strength 3+5 both lower limbs and lacks full active Knee extension RT 20 degrees whixh he attributes to gout) Results Lab Data Laboratory Tests 06/06/18 06:06: Glucometer 136H 06/07/18 06:10: Glucometer 109 06/08/18 05:45: Glucometer 104 Assessment/Plan Assessment and Plan Flare of gout improving with course of steroids RA S/P RT Ankle fracture treated nonsurgically Thyroid nodule Atypical Chest pain nonrecurrent Hypokalemia treated Depression on med DM controlled HTN controlled DVT Prophylaxis Lovenox subcut Plan Continue PT/OT Team Conference 06-10-18 Co-Morbidities that are continuing to impact the rehab process: (include details ) SHANIQUA ANTUNEZ MD Jun 08, 2018 19:48
[2018-06-08] MEDS: SIMvastatin 10 MG (ZOCOR) TAB PO SCH (21:25)
[2018-06-09 05:16] VITALS: BP 138/86
[2018-06-09] MEDS: KCL 10 MEQ TAB (MICRO K) PO SCH ×2 (07:02→17:34)
[2018-06-09] MEDS: metFORMIN 500 MG (GLUCOPHAGE) TAB PO SCH ×2 (07:02→17:34)
[2018-06-09] MEDS: ASPIRIN E.C. 81 MG (ECOTRIN) TAB PO SCH (09:00)
[2018-06-09] MEDS: ARIPIPRAZOLE 15 MG (ABILIFY) TAB PO SCH (09:00)
[2018-06-09] MEDS: ULORIC 80 MG PO SCH (09:00)
[2018-06-09] MEDS: lisINopril 10 MG (PRINIVIL) TABLET PO SCH (09:00)
[2018-06-09] MEDS: COLCHICINE 0.6 MG (COLCRYS) TABLET PO SCH (09:00)
--- NOTE | 2018-06-09 09:26 | PM & R (SOAP) Progress Note ---
Subjective This was a face to face visit with the patient. Date Seen by Provider: Jun 09, 2018 Time Seen by Provider: 07:45 Subjective/Events-last exam Patient was seen in his room this AM Patient SBA for transfers Patient on Steroid taper Date Identified: Jun 09, 2018 Time Identified: 07:45 Medication Intervention: Steroid taper Objective Physician Exam Last Set of Vital Signs Vital Signs Date Time Temp Pulse Resp B/P (MAP) Pulse Ox O2 Delivery O2 Flow Rate FiO2 06/09/18 05:16 97.3 87 16 138/86 (103) 92 Room Air Capillary Refill : I&O Intake and Output 06/09/18 00:00 Intake Total 1600 ml Output Total 1652 ml Balance -52 ml Intake Oral 1600 ml Output Urine Total 1652 ml # Voids 2 # Bowel Movements 1 General: Alert, Oriented X3, Cooperative, No Acute Distress HEENT: Atraumatic, PERRLA, EOMI, Mucous Memb Moist/[place] Neck: Supple, No JVD Lungs: Clear to Auscultation Heart: Regular Rate Abdomen: Normal Bowel Sounds, Soft, No Tenderness Extremities: Other (pedal edema) Neuro: Other (Strength 3+5 both lower limbs and lacks full active Knee extension RT 20 degrees whixh he attributes to gout) Results Lab Data Laboratory Tests 06/07/18 06:10: Glucometer 109 06/08/18 05:45: Glucometer 104 06/09/18 05:56: Glucometer 94 Assessment/Plan Assessment and Plan Flare of gout improved on steroids RA S/P RT ankle fracture treated nonsurgically Thyroid nodule Atypical chest pain nonrecurrent Hypokalemia replaced Depression on med DM controlled HTN controlled DVT prophylaxis lovenox subcut Plan Continue PT/OT/Steroid taper Team Conference tomorrow Co-Morbidities that are continuing to impact the rehab process: (include details ) SHANIQUA ANTUNEZ MD Jun 09, 2018 09:26
--- NOTE | 2018-06-09 09:30 | Occupational Ther Daily Note ---
OT Current Status-Daily Note Subjective Pt alert, lying in bed. Pt agrees to therapy. No c/o pain at this time. Pt asked if he does get to go home tomorrow and he isn't able to make it at home can he come back. NAYELI discussed with pt that he is still working on ambulation and transfers to become more independent at home so he will probably still be here for a few more days. Mental Status/Objective Patient Orientation: Person, Place, Time, Situation Therapy Code Descriptions/Definitions Functional [place] Measure: 0=Not Assessed/NA 4=Minimal Assistance 1=Total Assistance 5=Supervision or Setup 2=Maximal Assistance 6=Modified [place] 3=Moderate Assistance 7=Complete [place] ADL-Treatment Supine to EOB, mod I using bedrails. Min A for SPT from EOB to w/c. Pt is shaky and shuffles his feet with transfer while holding onto w/c arm. Pt maneuvers w/c to bathroom to complete own grooming and washing up face, hands and upper body. Therapy Code Descriptions/Definitions Functional [place] Measure: 0=Not Assessed/NA 4=Minimal Assistance 1=Total Assistance 5=Supervision or Setup 2=Maximal Assistance 6=Modified [place] 3=Moderate Assistance 7=Complete [place] Therapy Quality Codes: 6 Independent with activity with or without an assistive device 5 Patient requires set up or clean up by helper. Patient completes activity by themselves 4 Supervision or touching assist (CGA). [place] provide cues , steadying assist 3 The helper provides less than half the effort to complete the activity 2 The helper provides more than half the effort to complete the activity 1 Dependent. The helper does all the effort to complete an activity 7 Patient refused to complete or attempt activity 9 The patient did not perform the activity before the current illness or injury 88 Not attempted due to Medical conditions or safety concerns Grooming (FIM): 6 Oral Hygiene (QC): 6 Other Treatment Pt propelled w/c to therapy gym. Completed arm bike for 10 min at 15 breaux resistance, multiple recovery breaks needed, to increase strength and activity tolerance for daily functional tasks. PT took over care of pt in therapy gym. All needs met. OT Short Term Goals Short Term Goals Time Frame: Jun 10, 2018 Eating(FIM): 7 Grooming(FIM): 6 Toileting(FIM): 3 Transfers (B,C,W/C) (FIM): 4 Toilet/Commode Transfer(FIM): 3 Additional Short Term Goals: 1-Demonstrate ADL Tasks, 2-Verbalize Understanding , 3-ImproveStrength/Araceli 1=Demonstrate adherence to instructed precautions during ADL tasks. 2=Patient will verbalize/demonstrate understanding of assistive devices/ modifications for ADL. 3=Patient will improve strength/tolerance for activity to enable patient to perform ADL's. OT [place] Hand Goals Correction Goals Time Frame: Jun 24, 2018 Eating (FIM): 7 Eating (QC): 6 Groomin Oral Hygiene (QC): 6 Bathing(FIM): 5 Shower/Bathe Self (QC): 5 Upper Body Dressing(FIM): 6 Upper Body Dressing (QC): 6 Lower Body Dressing(FIM): 5 Lower Body Dressing (QC): 4 (SBA) On/Off Footwear (QC): 5 Toileting(FIM): 6 Toileting Hygiene (QC): 6 Toilet/Commode Transfer(FIM): 6 Toilet/Commode Transfer (QC): 6 Shower Transfer(FIM): 5 Additional Goals: 1-Demonstrate ADL Tasks, 2-Verbalize Understanding, 3- ImproveStrength/Araceli 1=Demonstrate adherence to instructed precautions during ADL tasks. 2=Patient will verbalize/demonstrate understanding of assistive devices/ modifications for ADL. 3=Patient will improve strength/tolerance for activity to enable patient to perform ADL's. OT Education/Plan Problem List/Assessment Pt would benefit from skilled OT to increase his independence in basic self care to allow him to safely return home Discharge Recommendations Plan/Recommendations: Continue POC Treatment Plan/Plan of Care Patient would benefit from OT for education, treatment and training to promote independence in ADL's, mobility, safety and/or upper extremity function for ADL' s. Plan of Care: ADL Retraining, Functional Mobility, Group Exercise/Act as Ind ( education, exercise, activity tolerance, functional mobility, funct activities, socialization), UE Funct Exercise/Act, UE Neuromus Re-Ed/Coord, W/C Management Training, OTHER (energy conservation and joint protection education and practice ) Treatment Duration: Jun 24, 2018 Frequency: At least 5 of 7 days/Wk (IRF) Estimated Hrs Per Day: 1.5 hours per day Agreement: Yes Rehab Potential: Good Time/GCodes Start Time: 08:30 Stop Time: 09:00 Total Time Billed (hr/min): 30 Billed Treatment Time 1 visit-ADL 1 (15 min) EX 1 (15 min) MIGUEL COREY Jun 09, 2018 09:30
--- NOTE | 2018-06-09 09:53 | Physical Therapy Daily Note ---
PT Daily Note-Current Subjective Patient in therapy gym pre tx, just got through with OT, agrees to PT, has 5/10 pain in both knees. Appearance Patient in wheelchair at bedside post tx, has nurse call, phone, tray, all needs met. Mental Status Patient Orientation: Person, Place, Situation Transfers Therapy Code Descriptions/Definitions Functional [place] Measure: 0=Not Assessed/NA 4=Minimal Assistance 1=Total Assistance 5=Supervision or Setup 2=Maximal Assistance 6=Modified [place] 3=Moderate Assistance 7=Complete [place] Therapy Quality Codes: 6 Independent with activity with or without an assistive device 5 Patient requires set up or clean up by helper. Patient completes activity by themselves 4 Supervision or touching assist (CGA). [place] provide cues , steadying assist 3 The helper provides less than half the effort to complete the activity 2 The helper provides more than half the effort to complete the activity 1 Dependent. The helper does all the effort to complete an activity 7 Patient refused to complete or attempt activity 9 The patient did not perform the activity before the current illness or injury 88 Not attempted due to Medical conditions or safety concerns Transfers (B, C, W/C) (FIM): 4 Sit to/from Stand: 4 Bed to/from Chair: 4 CGA, occasional cues for safety Weight Bearing Right Lower Extremity: Right Weight Bearing/Tolerated Left Lower Extremity: Left Full Weight Bearing Gait Training Gait (FIM): 1 Distance: 40'x3 Gait Level of Assist: 4 Gait Persons Needed: 1 Gait Assistive Device: FWW CGA, patient was very tired and could go no further than 40' at a time. He ambulates with extended, stiff knees and external rotation of hips, toes out, short quick steps. Wheelchair Training Does the Pt Use a Wheelchair?: Yes Wheelchair (FIM): 6 Distance: 150' Wheelchair Level of Assist: 6 Type of Wheelchair: Manual Exercises NuStep Minutes: 15 NuStep Workload: 5 Treatments transfers, ambulation, functional strengthening Assessment Current Status: Poor Progress Patient much more fatigued this morning, worse endurance with ambulation. Patient states he is just very tired. Needed frequent rest breaks. PT Short Term Goals Short Term Goals Time Frame: Jun 10, 2018 Transfers (B,C,W/C) (FIM): 4 Gait (FIM): 4 Distance (FIM): 3=150 ft Gait Assistive Device: FWW Wheelchair (FIM): 6 Stairs (FIM): 2 # of Steps: 4 PT Supervisor [place] [place] Goals Alf Goals PT Alf Goals Time Frame: Jun 24, 2018 Transfers (B,C,W/C) (FIM): 7 Sit to Lying (QC): 6 Lying-Sitting on Side/Bed(QC): 6 Sit to Stand (QC): 6 Rollin Roll Left to Right (QC): 6 Chair/Pft-gu-Axdcn Xfer(QC): 6 Car Transfer (QC): 6 Does the Patient Walk: Yes Gait (FIM): 6 Gait distance (FIM): 3=150 ft Walk 10 feet (QC): 6 Walk 10ft-Uneven Surface(QC): 6 Walk 50ft with 2 Turns (QC): 6 Walk 150 ft (QC): 6 Gait Assistive Device: FWW Wheelchair (FIM): 6 Stairs (FIM): 5 # of Steps: 4 1 Step (curb) (QC): 6 4 Steps (QC): 6 12 Steps (QC): 88 Stairs Level Of Assist: 6 Picking up an Object (QC): 4 PT Plan Problem List Problem List: Activity Tolerance, Functional Strength, Safety, Balance, Gait, Transfer, Bed Mobility, ROM Treatment/Plan Treatment Plan: Continue Plan of Care Treatment Plan: Bed Mobility, Education, Functional Activity Araceli, Functional Strength, Group Therapy, Gait, Safety, Therapeutic Exercise, Transfers Treatment Duration: Jun 24, 2018 Frequency: At least 5 of 7 days/Wk (IRF) Estimated Hrs Per Day: 1.5 hours per day Patient and/or Family Agrees t: Yes Safety Risks/Education Patient Education: Gait Training, Transfer Techniques, Correct Positioning, Safety Issues Teaching Recipient: Patient Teaching Methods: Demonstration, Discussion Response to Teaching: Reinforcement Needed Time/GCodes Time In: 0900 Time Out: 1000 Total Billed Treatment 1 visit [facility] 30' FA 15' EX 15' JEWEL ALAN PT Jun 09, 2018 09:53
--- NOTE | 2018-06-09 10:51 | Occupational Ther Daily Note ---
OT Current Status-Daily Note Subjective Pt alert, sitting in w/c. Pt stated that he was tired today and had heartburn. Reported heartburn to nrsg. Agrees to therapy. Mental Status/Objective Patient Orientation: Person, Place, Time, Situation Therapy Code Descriptions/Definitions Functional [place] Measure: 0=Not Assessed/NA 4=Minimal Assistance 1=Total Assistance 5=Supervision or Setup 2=Maximal Assistance 6=Modified [place] 3=Moderate Assistance 7=Complete [place] ADL-Treatment Used drsg stick to doff socks. Given socks and sock aide, pt able to don socks. Min A using long handle shoe horn, pt able to don shoes. Doffs shoes by pushing off with opposite foot. Pt unable plantar flexion foot so makes donning shoes difficult. Therapy Code Descriptions/Definitions Functional [place] Measure: 0=Not Assessed/NA 4=Minimal Assistance 1=Total Assistance 5=Supervision or Setup 2=Maximal Assistance 6=Modified [place] 3=Moderate Assistance 7=Complete [place] Therapy Quality Codes: 6 Independent with activity with or without an assistive device 5 Patient requires set up or clean up by helper. Patient completes activity by themselves 4 Supervision or touching assist (CGA). [place] provide cues , steadying assist 3 The helper provides less than half the effort to complete the activity 2 The helper provides more than half the effort to complete the activity 1 Dependent. The helper does all the effort to complete an activity 7 Patient refused to complete or attempt activity 9 The patient did not perform the activity before the current illness or injury 88 Not attempted due to Medical conditions or safety concerns On/Off Footwear (QC): 3 Other Treatment Pt worked on UE strengthening and increasing activity tolerance. Pt propelled w /c throughout hospital and outside. Required frequent and multiple breaks throughout session. Pt used UE and LE then interchanged between the two when fatigue. Pt SOA with exertions. Assist needed with propelling up incline backwards and stopping in middle for recovery break. Propelled w/c to room then transferred while holding onto w/c, recliner and bedrail with SBA. After therapy, pt lying in bed with call light/phone in reach. All needs met in room. OT Short Term Goals Short Term Goals Time Frame: Jun 10, 2018 Eating(FIM): 7 Grooming(FIM): 6 Toileting(FIM): 3 Transfers (B,C,W/C) (FIM): 4 Toilet/Commode Transfer(FIM): 3 Additional Short Term Goals: 1-Demonstrate ADL Tasks, 2-Verbalize Understanding , 3-ImproveStrength/Araceli 1=Demonstrate adherence to instructed precautions during ADL tasks. 2=Patient will verbalize/demonstrate understanding of assistive devices/ modifications for ADL. 3=Patient will improve strength/tolerance for activity to enable patient to perform ADL's. OT [employer] Goals [employer]inder Crew Worker Goals Time Frame: Jun 24, 2018 Eating (FIM): 7 Eating (QC): 6 Groomin Oral Hygiene (QC): 6 Bathing(FIM): 5 Shower/Bathe Self (QC): 5 Upper Body Dressing(FIM): 6 Upper Body Dressing (QC): 6 Lower Body Dressing(FIM): 5 Lower Body Dressing (QC): 4 (SBA) On/Off Footwear (QC): 5 Toileting(FIM): 6 Toileting Hygiene (QC): 6 Toilet/Commode Transfer(FIM): 6 Toilet/Commode Transfer (QC): 6 Shower Transfer(FIM): 5 Additional Goals: 1-Demonstrate ADL Tasks, 2-Verbalize Understanding, 3- ImproveStrength/Araceli 1=Demonstrate adherence to instructed precautions during ADL tasks. 2=Patient will verbalize/demonstrate understanding of assistive devices/ modifications for ADL. 3=Patient will improve strength/tolerance for activity to enable patient to perform ADL's. OT Education/Plan Problem List/Assessment Pt would benefit from skilled OT to increase his independence in basic self care to allow him to safely return home Discharge Recommendations Plan/Recommendations: Continue POC Treatment Plan/Plan of Care Patient would benefit from OT for education, treatment and training to promote independence in ADL's, mobility, safety and/or upper extremity function for ADL' s. Plan of Care: ADL Retraining, Functional Mobility, Group Exercise/Act as Ind ( education, exercise, activity tolerance, functional mobility, funct activities, socialization), UE Funct Exercise/Act, UE Neuromus Re-Ed/Coord, W/C Management Training, OTHER (energy conservation and joint protection education and practice ) Treatment Duration: Jun 24, 2018 Frequency: At least 5 of 7 days/Wk (IRF) Estimated Hrs Per Day: 1.5 hours per day Agreement: Yes Rehab Potential: Good Time/GCodes Start Time: 10:00 Stop Time: 11:00 Total Time Billed (hr/min): 60 Billed Treatment Time 1 visit-ADL 1 (20 min) FA 3 (40 min) MIGUEL COREY Jun 09, 2018 10:51
[2018-06-09] MEDS ORDERED: ANTACID SUSP 30 ML UDC (MYLANTA) ONE (11:03)
[2018-06-09] MEDS: ENOXAPARIN 40 MG/0.4 ML (LOVENOX) SYR SC SCH ×2 (11:10→23:38)
[2018-06-09] MEDS ORDERED: ANTACID SUSP 30 ML UDC (MYLANTA) PO PRN (11:15)
--- NOTE | 2018-06-09 14:24 | Physical Therapy Daily Note ---
PT Daily Note-Current Subjective Patient in bed pre tx, agrees to PT, no complaints of pain. Appearance Patient in wheelchair at bedside post tx, has nurse call, phone, tray, all needs met. Mental Status Patient Orientation: Person, Place, Situation Transfers Therapy Code Descriptions/Definitions Functional [place] Measure: 0=Not Assessed/NA 4=Minimal Assistance 1=Total Assistance 5=Supervision or Setup 2=Maximal Assistance 6=Modified [place] 3=Moderate Assistance 7=Complete [place] Therapy Quality Codes: 6 Independent with activity with or without an assistive device 5 Patient requires set up or clean up by helper. Patient completes activity by themselves 4 Supervision or touching assist (CGA). [place] provide cues , steadying assist 3 The helper provides less than half the effort to complete the activity 2 The helper provides more than half the effort to complete the activity 1 Dependent. The helper does all the effort to complete an activity 7 Patient refused to complete or attempt activity 9 The patient did not perform the activity before the current illness or injury 88 Not attempted due to Medical conditions or safety concerns Transfers (B, C, W/C) (FIM): 4 Scootin Rollin Supine to/from Sit: 5 Sit to/from Stand: 4 Bed to/from Chair: 4 CGA for stand pivot transfer to the wheelchair Weight Bearing Right Lower Extremity: Right Weight Bearing/Tolerated Left Lower Extremity: Left Full Weight Bearing Wheelchair Training Wheelchair (FIM): 5 Distance: 150'x2 Wheelchair Level of Assist: 5 Type of Wheelchair: Manual Exercises Standing: Hip Abduction, Hamstring curls, Heel/toe raises, 3 way Ex=Flex, Abd, Ext (not extension), Marching, Mini squats Standing Reps: 15 Treatments bed mobility, transfers, functional strengthening Assessment Current Status: Fair Progress patient needed frequent rest breaks PT Short Term Goals Short Term Goals Time Frame: Jun 10, 2018 Transfers (B,C,W/C) (FIM): 4 Gait (FIM): 4 Distance (FIM): 3=150 ft Gait Assistive Device: FWW Wheelchair (FIM): 6 Wheelchair Distance: 150' Stairs (FIM): 2 # of Steps: 4 PT Helper [place] Goals [employer]per [place] Goals PT Helper [place] Goals Time Frame: Jun 24, 2018 Transfers (B,C,W/C) (FIM): 7 Sit to Lying (QC): 6 Lying-Sitting on Side/Bed(QC): 6 Sit to Stand (QC): 6 Rollin Roll Left to Right (QC): 6 Chair/Ljj-xh-Ycbez Xfer(QC): 6 Car Transfer (QC): 6 Does the Patient Walk: Yes Gait (FIM): 6 Gait distance (FIM): 3=150 ft Walk 10 feet (QC): 6 Walk 10ft-Uneven Surface(QC): 6 Walk 50ft with 2 Turns (QC): 6 Walk 150 ft (QC): 6 Gait Assistive Device: FWW Wheelchair (FIM): 6 Stairs (FIM): 5 # of Steps: 4 1 Step (curb) (QC): 6 4 Steps (QC): 6 12 Steps (QC): 88 Stairs Level Of Assist: 6 Picking up an Object (QC): 4 PT Plan Problem List Problem List: Activity Tolerance, Functional Strength, Safety, Balance, Gait, Transfer, Bed Mobility, ROM Treatment/Plan Treatment Plan: Continue Plan of Care Treatment Plan: Bed Mobility, Education, Functional Activity Araceli, Functional Strength, Group Therapy, Gait, Safety, Therapeutic Exercise, Transfers Treatment Duration: Jun 24, 2018 Frequency: At least 5 of 7 days/Wk (IRF) Estimated Hrs Per Day: 1.5 hours per day Patient and/or Family Agrees t: Yes Safety Risks/Education Patient Education: Transfer Techniques, Correct Positioning, W/C Management, Safety Issues Teaching Recipient: Patient Teaching Methods: Demonstration, Discussion Response to Teaching: Reinforcement Needed Time/GCodes Time In: 1400 Time Out: 1430 Total Billed Treatment Time: 30 Total Billed Treatment 1 visit [facility] 10' EX 20' JEWEL ALAN PT Jun 09, 2018 14:24
[2018-06-09 16:29] VITALS: BP 123/82
[2018-06-09] MEDS: SIMvastatin 10 MG (ZOCOR) TAB PO SCH (20:39)
[2018-06-10 05:30] VITALS: BP 123/78
[2018-06-10] MEDS: KCL 10 MEQ TAB (MICRO K) PO SCH ×2 (06:59→17:38)
[2018-06-10] MEDS: metFORMIN 500 MG (GLUCOPHAGE) TAB PO SCH ×2 (06:59→17:38)
[2018-06-10] MEDS: ASPIRIN E.C. 81 MG (ECOTRIN) TAB PO SCH (09:27)
[2018-06-10] MEDS: COLCHICINE 0.6 MG (COLCRYS) TABLET PO SCH (09:27)
[2018-06-10] MEDS: lisINopril 10 MG (PRINIVIL) TABLET PO SCH (09:28)
[2018-06-10] MEDS: ARIPIPRAZOLE 15 MG (ABILIFY) TAB PO SCH (09:50)
[2018-06-10] MEDS: ULORIC 80 MG PO SCH (09:52)
--- NOTE | 2018-06-10 09:52 | Occupational Ther Daily Note ---
OT Current Status-Daily Note Subjective Pt alert, sitting in w/c. Pt agrees to therapy. No c/o pain at this time. Mental Status/Objective Patient Orientation: Person, Place, Time, Situation Therapy Code Descriptions/Definitions Functional [place] Measure: 0=Not Assessed/NA 4=Minimal Assistance 1=Total Assistance 5=Supervision or Setup 2=Maximal Assistance 6=Modified [place] 3=Moderate Assistance 7=Complete [place] ADL-Treatment Pt agrees to shower. Pt propelled w/c to large shower room. Using grabbar, pt able to SPT from w/c <--> shower chair with cutout with SBA. Pt able to complete all areas sitting on shower chair with cutout to cleanse buttocks/albertina area. Pt dried and rinsed self. After set up, pt able to don upper body clothing by self. Using AE pt able to don/doff lower body clothing with SBA in standing to hike pants over hips. Therapy Code Descriptions/Definitions Functional [place] Measure: 0=Not Assessed/NA 4=Minimal Assistance 1=Total Assistance 5=Supervision or Setup 2=Maximal Assistance 6=Modified [place] 3=Moderate Assistance 7=Complete [place] Therapy Quality Codes: 6 Independent with activity with or without an assistive device 5 Patient requires set up or clean up by helper. Patient completes activity by themselves 4 Supervision or touching assist (CGA). [place] provide cues , steadying assist 3 The helper provides less than half the effort to complete the activity 2 The helper provides more than half the effort to complete the activity 1 Dependent. The helper does all the effort to complete an activity 7 Patient refused to complete or attempt activity 9 The patient did not perform the activity before the current illness or injury 88 Not attempted due to Medical conditions or safety concerns Bathing (FIM): 6 Bathing Location: L Arm, R Arm, L Upper Leg, R Upper Leg, L Lower Leg ( including foot), R Lower Leg (including foot), Chest, Abdomen, Buttocks, Perineal Area Shower/Bathe Self (QC): 6 Upper Body (FIM): 5 Upper Body Dressing (QC): 5 Lower Body Dressing (FIM): 5 Lower Body Dressing (QC): 4 Shower Transfer(FIM): 5 Other Treatment Pt propelled w/c to therapy gym. Pt completed arm bike with light resistance, 1 break, to increase strength and activity tolerance for daily functional tasks. Pt propelled w/c back to room and completed 10 arm chair pushups, 2 sets 5 reps with recovery break between sets. After therapy, pt sitting in w/c with call light/phone in reach. All needs met in room. OT Short Term Goals Short Term Goals Time Frame: Jun 10, 2018 Eating(FIM): 7 Grooming(FIM): 6 Toileting(FIM): 3 Transfers (B,C,W/C) (FIM): 4 Toilet/Commode Transfer(FIM): 3 Additional Short Term Goals: 1-Demonstrate ADL Tasks, 2-Verbalize Understanding , 3-ImproveStrength/Araceli 1=Demonstrate adherence to instructed precautions during ADL tasks. 2=Patient will verbalize/demonstrate understanding of assistive devices/ modifications for ADL. 3=Patient will improve strength/tolerance for activity to enable patient to perform ADL's. OT Long-Term Goals Photo Optics Technician Goals Time Frame: Jun 24, 2018 Eating (FIM): 7 Eating (QC): 6 Groomin Oral Hygiene (QC): 6 Bathing(FIM): 5 Shower/Bathe Self (QC): 5 Upper Body Dressing(FIM): 6 Upper Body Dressing (QC): 6 Lower Body Dressing(FIM): 5 Lower Body Dressing (QC): 4 (SBA) On/Off Footwear (QC): 5 Toileting(FIM): 6 Toileting Hygiene (QC): 6 Toilet/Commode Transfer(FIM): 6 Toilet/Commode Transfer (QC): 6 Shower Transfer(FIM): 5 Additional Goals: 1-Demonstrate ADL Tasks, 2-Verbalize Understanding, 3- ImproveStrength/Araceli 1=Demonstrate adherence to instructed precautions during ADL tasks. 2=Patient will verbalize/demonstrate understanding of assistive devices/ modifications for ADL. 3=Patient will improve strength/tolerance for activity to enable patient to perform ADL's. OT Education/Plan Problem List/Assessment Pt would benefit from skilled OT to increase his independence in basic self care to allow him to safely return home Discharge Recommendations Plan/Recommendations: Continue POC Treatment Plan/Plan of Care Patient would benefit from OT for education, treatment and training to promote independence in ADL's, mobility, safety and/or upper extremity function for ADL' s. Plan of Care: ADL Retraining, Functional Mobility, Group Exercise/Act as Ind ( education, exercise, activity tolerance, functional mobility, funct activities, socialization), UE Funct Exercise/Act, UE Neuromus Re-Ed/Coord, W/C Management Training, OTHER (energy conservation and joint protection education and practice ) Treatment Duration: Jun 24, 2018 Frequency: At least 5 of 7 days/Wk (IRF) Estimated Hrs Per Day: 1.5 hours per day Agreement: Yes Rehab Potential: Good Time/GCodes Start Time: 09:00 Stop Time: 10:00 Total Time Billed (hr/min): 60 Billed Treatment Time 1 visit-ADL 3 (40 min) EX 1 (20 min) MIGUEL COREY Jun 10, 2018 09:52
--- NOTE | 2018-06-10 10:59 | Physical Therapy Daily Note ---
PT Daily Note-Current Subjective Patient in wheelchair pre tx, agrees to PT, no complaints of pain. Appearance Patient in wheelchair at bedside post tx, has nurse call, phone, tray, all needs met. Mental Status Patient Orientation: Person, Place, Situation Transfers Therapy Code Descriptions/Definitions Functional [place] Measure: 0=Not Assessed/NA 4=Minimal Assistance 1=Total Assistance 5=Supervision or Setup 2=Maximal Assistance 6=Modified [place] 3=Moderate Assistance 7=Complete [place] Therapy Quality Codes: 6 Independent with activity with or without an assistive device 5 Patient requires set up or clean up by helper. Patient completes activity by themselves 4 Supervision or touching assist (CGA). [place] provide cues , steadying assist 3 The helper provides less than half the effort to complete the activity 2 The helper provides more than half the effort to complete the activity 1 Dependent. The helper does all the effort to complete an activity 7 Patient refused to complete or attempt activity 9 The patient did not perform the activity before the current illness or injury 88 Not attempted due to Medical conditions or safety concerns Transfers (B, C, W/C) (FIM): 4 Sit to/from Stand: 4 Bed to/from Chair: 4 Weight Bearing Right Lower Extremity: Right Weight Bearing/Tolerated Left Lower Extremity: Left Full Weight Bearing Gait Training Gait (FIM): 2 Distance: 80', 40'x2 Gait Level of Assist: 4 Gait Persons Needed: 1 Gait Assistive Device: FWW wide MARVA, toes outward, little to no knee flexion Wheelchair Training Does the Pt Use a Wheelchair?: Yes Wheelchair (FIM): 5 Distance: 150'x2 Wheelchair Level of Assist: 5 Type of Wheelchair: Manual Exercises Standing: Hip Abduction, Hamstring curls, Heel/toe raises, Mini squats Standing Reps: 15 NuStep Minutes: 15 NuStep Workload: 5 Treatments transfers, ambulation, functional strengthening Assessment Current Status: Fair Progress improving endurance PT Short Term Goals Short Term Goals Time Frame: Jun 10, 2018 Transfers (B,C,W/C) (FIM): 4 Gait (FIM): 4 Distance (FIM): 3=150 ft Gait Assistive Device: FWW Wheelchair (FIM): 6 Wheelchair Distance: 150'x2 Stairs (FIM): 2 # of Steps: 4 PT Spa Manager Goals Longterm Goals PT Longterm Goals Time Frame: Jun 24, 2018 Transfers (B,C,W/C) (FIM): 7 Sit to Lying (QC): 6 Lying-Sitting on Side/Bed(QC): 6 Sit to Stand (QC): 6 Rollin Roll Left to Right (QC): 6 Chair/Fuu-gy-Olztr Xfer(QC): 6 Car Transfer (QC): 6 Does the Patient Walk: Yes Gait (FIM): 6 Gait distance (FIM): 3=150 ft Walk 10 feet (QC): 6 Walk 10ft-Uneven Surface(QC): 6 Walk 50ft with 2 Turns (QC): 6 Walk 150 ft (QC): 6 Gait Assistive Device: FWW Wheelchair (FIM): 6 Stairs (FIM): 5 # of Steps: 4 1 Step (curb) (QC): 6 4 Steps (QC): 6 12 Steps (QC): 88 Stairs Level Of Assist: 6 Picking up an Object (QC): 4 PT Plan Problem List Problem List: Activity Tolerance, Functional Strength, Safety, Balance, Gait, Transfer, Bed Mobility, ROM Treatment/Plan Treatment Plan: Continue Plan of Care Treatment Plan: Bed Mobility, Education, Functional Activity [place], Functional Strength, Group Therapy, Gait, Safety, Therapeutic Exercise, Transfers Treatment Duration: Jun 24, 2018 Frequency: At least 5 of 7 days/Wk (IRF) Estimated Hrs Per Day: 1.5 hours per day Patient and/or Family Agrees t: Yes Safety Risks/Education Patient Education: Gait Training, Transfer Techniques, Correct Positioning, W/ C Management, Safety Issues Teaching Recipient: Patient Teaching Methods: Demonstration, Discussion Response to Teaching: Reinforcement Needed Time/GCodes Time In: 1000 Time Out: 1100 Total Billed Treatment Time: 60 Total Billed Treatment 1 visit GT 30' EX 20' WC 10' JEWEL ALAN PT Jun 10, 2018 10:59
[2018-06-10] MEDS: ENOXAPARIN 40 MG/0.4 ML (LOVENOX) SYR SC SCH ×2 (11:18→23:35)
--- NOTE | 2018-06-10 14:37 | Therapy Group Daily Note ---
Therapy Daily Group Note Patient Education Topic Home Safety Exercises LE Seated Exercise, UE Exercise Other/Notes Pt transported via w/c to [facility] for group. Group consisted of introductions (name, place born, favorite Quentin movie), socialization, pt led UE/LE seated exercises, ARU description and home safety education. Pt introduced self appropriately and actively listened to peers. Pt was able to complete UE/LE pt led exercises. Pt verbalized understanding of educational topics and was able to contribute own strategies for home safety. Pt initiated discussions and was able to contribute to peer conversations throughout group. After therapy, pt lying in bed with call light/phone in reach. All needs met in room. Start Time: 13:00 Stop Time: 14:10 Total Billed Treatment Time: 70 Total Billed Treatment 1-GRP MIGUEL COREY Jun 10, 2018 14:37
[2018-06-10 18:34] VITALS: BP 99/65
--- NOTE | 2018-06-10 19:57 | PM & R (SOAP) Progress Note ---
Subjective This was a face to face visit with the patient. Date Seen by Provider: Jun 10, 2018 Time Seen by Provider: 07:40 Subjective/Events-last exam Patient was seen in his room this AM Continues with steroid taper Patient Min assist for transfers Pain much improved Objective Physician Exam Last Set of Vital Signs Vital Signs Date Time Temp Pulse Resp B/P (MAP) Pulse Ox O2 Delivery O2 Flow Rate FiO2 06/10/18 18:34 97.6 88 20 99/65 (76) 95 Room Air Capillary Refill : I&O Intake and Output 06/10/18 00:00 Intake Total 1400 ml Output Total 1600 ml Balance -200 ml Intake Oral 1400 ml Output Urine Total 1600 ml General: Alert, Oriented X3, Cooperative, No Acute Distress HEENT: Atraumatic, PERRLA, EOMI, Mucous Memb Moist/[place] Neck: Supple, No JVD Lungs: Clear to Auscultation Heart: Regular Rate Abdomen: Normal Bowel Sounds, Soft, No Tenderness Extremities: Other (pedal edema) Neuro: Other (Strength 3+5 both lower limbs and lacks full active Knee extension RT 20 degrees whixh he attributes to gout) Results Lab Data Laboratory Tests 06/08/18 05:45: Glucometer 104 06/09/18 05:56: Glucometer 94 06/10/18 05:40: Glucometer 96 Assessment/Plan Assessment and Plan Flare of gout improved and now on steroid taper RA S/P rt ankle fracture with limited dorsiflexion Thyroid nodule Atypical Chest pain nonrecurrent Hypokalemia-replaced Depression on med DM controlled HTN controlled DVT Prophylaxis on Lovenox subcut Plan Continue PT/OT/Steroid taper Team Conference held earlier today-see report for full functional update and POC and ELOS Co-Morbidities that are continuing to impact the rehab process: (include details ) SHANIQUA ANTUNEZ MD Jun 10, 2018 19:57
[2018-06-10] MEDS: SIMvastatin 10 MG (ZOCOR) TAB PO SCH (20:15)
[2018-06-10 20:47] VITALS: BP 111/69
[2018-06-11 05:10] VITALS: BP 125/79
[2018-06-11] MEDS: KCL 10 MEQ TAB (MICRO K) PO SCH ×2 (06:40→17:03)
[2018-06-11] MEDS: metFORMIN 500 MG (GLUCOPHAGE) TAB PO SCH ×2 (06:40→17:03)
[2018-06-11] MEDS: COLCHICINE 0.6 MG (COLCRYS) TABLET PO SCH (08:42)
[2018-06-11] MEDS: lisINopril 10 MG (PRINIVIL) TABLET PO SCH (08:42)
[2018-06-11] MEDS: ARIPIPRAZOLE 15 MG (ABILIFY) TAB PO SCH (08:42)
[2018-06-11] MEDS: ASPIRIN E.C. 81 MG (ECOTRIN) TAB PO SCH (08:42)
[2018-06-11] MEDS: ULORIC 80 MG PO SCH (09:33)
--- NOTE | 2018-06-11 10:09 | Occupational Ther Daily Note ---
OT Current Status-Daily Note Subjective Pt alert, sitting in w/c. Pt agrees to therapy. No c/o pain at this time. Pt asked about family bringing in food, instructed to follow dietary plan when family brought in food. Mental Status/Objective Patient Orientation: Person, Place, Time, Situation Therapy Code Descriptions/Definitions Functional [place] Measure: 0=Not Assessed/NA 4=Minimal Assistance 1=Total Assistance 5=Supervision or Setup 2=Maximal Assistance 6=Modified [place] 3=Moderate Assistance 7=Complete [place] ADL-Treatment Pt declined shower or changing clothing. Pt stated that he had went to bathroom earlier and then completed own grooming. Therapy Code Descriptions/Definitions Functional [place] Measure: 0=Not Assessed/NA 4=Minimal Assistance 1=Total Assistance 5=Supervision or Setup 2=Maximal Assistance 6=Modified [place] 3=Moderate Assistance 7=Complete [place] Therapy Quality Codes: 6 Independent with activity with or without an assistive device 5 Patient requires set up or clean up by helper. Patient completes activity by themselves 4 Supervision or touching assist (CGA). [place] provide cues , steadying assist 3 The helper provides less than half the effort to complete the activity 2 The helper provides more than half the effort to complete the activity 1 Dependent. The helper does all the effort to complete an activity 7 Patient refused to complete or attempt activity 9 The patient did not perform the activity before the current illness or injury 88 Not attempted due to Medical conditions or safety concerns Other Treatment Pt takes increased time with exercises due to decreased activity tolerance and multiple recovery breaks for SOA. Pt propelled w/c to therapy gym. Arm bike completed, set for 12 min with light resistance with multiple breaks pt took 20 min to complete, to increase strength and activity tolerance for daily functional tasks. Gross fine motor tasks completed with 1# wt attached to wrists to work on UE strength and fine motor coordination and pinch/skip miner blasting strength for daily functional tasks. After therapy, pt in room sitting in w/c with call light/phone in reach. All needs met in room. OT Short Term Goals Short Term Goals Time Frame: Jun 10, 2018 Eating(FIM): 7 Grooming(FIM): 6 Toileting(FIM): 3 Transfers (B,C,W/C) (FIM): 4 Toilet/Commode Transfer(FIM): 3 Additional Short Term Goals: 1-Demonstrate ADL Tasks, 2-Verbalize Understanding , 3-ImproveStrength/[place] 1=Demonstrate adherence to instructed precautions during ADL tasks. 2=Patient will verbalize/demonstrate understanding of assistive devices/ modifications for ADL. 3=Patient will improve strength/tolerance for activity to enable patient to perform ADL's. OT Instructor Psychiatric Aide Goals Instructor Psychiatric Aide Goals Time Frame: Jun 24, 2018 Eating (FIM): 7 Eating (QC): 6 Groomin Oral Hygiene (QC): 6 Bathing(FIM): 5 Shower/Bathe Self (QC): 5 Upper Body Dressing(FIM): 6 Upper Body Dressing (QC): 6 Lower Body Dressing(FIM): 5 Lower Body Dressing (QC): 4 (SBA) On/Off Footwear (QC): 5 Toileting(FIM): 6 Toileting Hygiene (QC): 6 Toilet/Commode Transfer(FIM): 6 Toilet/Commode Transfer (QC): 6 Shower Transfer(FIM): 5 Additional Goals: 1-Demonstrate ADL Tasks, 2-Verbalize Understanding, 3- ImproveStrength/[place] 1=Demonstrate adherence to instructed precautions during ADL tasks. 2=Patient will verbalize/demonstrate understanding of assistive devices/ modifications for ADL. 3=Patient will improve strength/tolerance for activity to enable patient to perform ADL's. OT Education/Plan Problem List/Assessment Pt would benefit from skilled OT to increase his independence in basic self care to allow him to safely return home Discharge Recommendations Plan/Recommendations: Continue POC Treatment Plan/Plan of Care Patient would benefit from OT for education, treatment and training to promote independence in ADL's, mobility, safety and/or upper extremity function for ADL' s. Plan of Care: ADL Retraining, Functional Mobility, Group Exercise/Act as Ind ( education, exercise, activity tolerance, functional mobility, funct activities, socialization), UE Funct Exercise/Act, UE Neuromus Re-Ed/Coord, W/C Management Training, OTHER (energy conservation and joint protection education and practice ) Treatment Duration: Jun 24, 2018 Frequency: At least 5 of 7 days/Wk (IRF) Estimated Hrs Per Day: 1.5 hours per day Agreement: Yes Rehab Potential: Good Time/GCodes Start Time: 09:00 Stop Time: 10:00 Total Time Billed (hr/min): 60 Billed Treatment Time 1 visit-EX 4 (60 min) MIGUEL COREY 20, 2018 10:09
--- NOTE | 2018-06-11 10:56 | Physical Therapy Daily Note ---
PT Daily Note-Current Subjective Patient in wheelchair pre tx, agrees to PT, no complaints of pain. Appearance Patient in wheelchair at bedside post tx, has nurse call, phone, tray, all needs met. Mental Status Patient Orientation: Person, Place, Situation Transfers Therapy Code Descriptions/Definitions Functional [place] Measure: 0=Not Assessed/NA 4=Minimal Assistance 1=Total Assistance 5=Supervision or Setup 2=Maximal Assistance 6=Modified [place] 3=Moderate Assistance 7=Complete [place] Therapy Quality Codes: 6 Independent with activity with or without an assistive device 5 Patient requires set up or clean up by helper. Patient completes activity by themselves 4 Supervision or touching assist (CGA). [place] provide cues , steadying assist 3 The helper provides less than half the effort to complete the activity 2 The helper provides more than half the effort to complete the activity 1 Dependent. The helper does all the effort to complete an activity 7 Patient refused to complete or attempt activity 9 The patient did not perform the activity before the current illness or injury 88 Not attempted due to Medical conditions or safety concerns Transfers (B, C, W/C) (FIM): 5 Sit to/from Stand: 5 Bed to/from Chair: 5 Sometimes has to rock forward and use momentum to stand from lower surfaces. Weight Bearing Right Lower Extremity: Right Weight Bearing/Tolerated Left Lower Extremity: Left Full Weight Bearing Gait Training Gait (FIM): 2 Distance: 80'x2, 40' Gait Level of Assist: 4 Gait Persons Needed: 1 Gait Assistive Device: FWW CGA, patient ambulates with wide base, hip external rotation, very little knee flexion Wheelchair Training Does the Pt Use a Wheelchair?: Yes Wheelchair (FIM): 6 Distance: 150'x2 Type of Wheelchair: Manual Stair Training Stair Training: Handrails/: 2 handrails Stairs (FIM): 2 #of Steps: 4 Stairs: Pattern: Step to Level of Assist: 5 cues for foot placement Exercises Seated Therapy Exercises: Ankle pumps, Long arc quads, Hip flexion Seated Reps: 20 NuStep Minutes: 15 NuStep Workload: 5 Treatments transfers, ambulation, functional strengthening, stair training, wheelchair mobility Assessment Current Status: Fair Progress improving endurance PT Short Term Goals Short Term Goals Time Frame: Jun 10, 2018 Transfers (B,C,W/C) (FIM): 4 Gait (FIM): 4 Distance (FIM): 3=150 ft Gait Assistive Device: FWW Wheelchair (FIM): 6 Wheelchair Distance: 150'x2 Stairs (FIM): 2 # of Steps: 4 PT Forensic Structural Engineer Goals Forensic Structural Engineer Goals PT Forensic Structural Engineer Goals Time Frame: Jun 24, 2018 Transfers (B,C,W/C) (FIM): 7 Sit to Lying (QC): 6 Lying-Sitting on Side/Bed(QC): 6 Sit to Stand (QC): 6 Rollin Roll Left to Right (QC): 6 Chair/Iwe-yw-Aflqq Xfer(QC): 6 Car Transfer (QC): 6 Does the Patient Walk: Yes Gait (FIM): 6 Gait distance (FIM): 3=150 ft Walk 10 feet (QC): 6 Walk 10ft-Uneven Surface(QC): 6 Walk 50ft with 2 Turns (QC): 6 Walk 150 ft (QC): 6 Gait Assistive Device: FWW Wheelchair (FIM): 6 Stairs (FIM): 5 # of Steps: 4 1 Step (curb) (QC): 6 4 Steps (QC): 6 12 Steps (QC): 88 Stairs Level Of Assist: 6 Picking up an Object (QC): 4 PT Plan Problem List Problem List: Activity Tolerance, Functional Strength, Safety, Balance, Gait, Transfer, Bed Mobility, ROM Treatment/Plan Treatment Plan: Continue Plan of Care Treatment Plan: Bed Mobility, Education, Functional Activity [place], Functional Strength, Group Therapy, Gait, Safety, Therapeutic Exercise, Transfers Treatment Duration: Jun 24, 2018 Frequency: At least 5 of 7 days/Wk (IRF) Estimated Hrs Per Day: 1.5 hours per day Patient and/or Family Agrees t: Yes Safety Risks/Education Patient Education: Gait Training, Transfer Techniques, Steps, Correct Positioning, W/C Management, Safety Issues Teaching Recipient: Patient Teaching Methods: Demonstration, Discussion Response to Teaching: Reinforcement Needed Time/GCodes Time In: 1000 Time Out: 1100 Total Billed Treatment Time: 60 Total Billed Treatment 1 visit GT 30' EX 20' WCH 10' JEWEL ALAN PT Jun 11, 2018 10:55
[2018-06-11] MEDS: ENOXAPARIN 40 MG/0.4 ML (LOVENOX) SYR SC SCH ×2 (11:06→22:59)
[2018-06-11] MEDS: IBUPROFEN 800 MG (MOTRIN) TAB PO PRN (11:10)
--- NOTE | 2018-06-11 14:00 | PM & R (SOAP) Progress Note ---
Subjective This was a face to face visit with the patient. Date Seen by Provider: Jun 11, 2018 Time Seen by Provider: 08:00 Subjective/Events-last exam Patient was seen in his room this AM Patient SBA for transfers Completed steroid taper Date Identified: Jun 11, 2018 Time Identified: 08:00 Medication Intervention: Completed steroid taper Objective Physician Exam Last Set of Vital Signs Vital Signs Date Time Temp Pulse Resp B/P (MAP) Pulse Ox O2 Delivery O2 Flow Rate FiO2 06/11/18 05:10 96.8 90 18 125/79 (94) 95 Room Air Capillary Refill : I&O Intake and Output 06/11/18 00:00 Intake Total 1400 ml Output Total 1450 ml Balance -50 ml Intake Oral 1400 ml Output Urine Total 1450 ml # Bowel Movements 1 General: Alert, Oriented X3, Cooperative, No Acute Distress HEENT: Atraumatic, PERRLA, EOMI, Mucous Memb Moist/[place] Neck: Supple, No JVD Lungs: Clear to Auscultation Heart: Regular Rate Abdomen: Normal Bowel Sounds, Soft, No Tenderness Extremities: Other (pedal edema) Neuro: Other (Strength 3+5 both lower limbs and lacks full active Knee extension RT 20 degrees whixh he attributes to gout) Results Lab Data Laboratory Tests 06/09/18 05:56: Glucometer 94 06/10/18 05:40: Glucometer 96 06/11/18 06:38: Glucometer 104 Assessment/Plan Assessment and Plan Flare of gout improved and now steroid d/cd RA S/P RT ankle fracture managed non surgically Throid nodule Atypical CP non recurrent Hypokalemia replaced Depression on med DM controlled HTN controlled DVT Prophylaxis on Lovenox subcut Plan Continue PT/OT Team Conference held yesterday-See report for full functional update and POC Discharge set tentatively for 06-18-18 Co-Morbidities that are continuing to impact the rehab process: (include details ) SHANIQUA ANTUNEZ MD Jun 11, 2018 14:00
--- NOTE | 2018-06-11 14:44 | Occupational Ther Daily Note ---
OT Current Status-Daily Note Subjective Pt sitting in w/c, alert. Pt had just finished up with PT and stated that he was worn out. Did agree to therapy. No c/o pain. Mental Status/Objective Patient Orientation: Person, Place, Time, Situation Therapy Code Descriptions/Definitions Functional [place] Measure: 0=Not Assessed/NA 4=Minimal Assistance 1=Total Assistance 5=Supervision or Setup 2=Maximal Assistance 6=Modified [place] 3=Moderate Assistance 7=Complete [place] ADL-Treatment Therapy Code Descriptions/Definitions Functional [place] Measure: 0=Not Assessed/NA 4=Minimal Assistance 1=Total Assistance 5=Supervision or Setup 2=Maximal Assistance 6=Modified [place] 3=Moderate Assistance 7=Complete [place] Therapy Quality Codes: 6 Independent with activity with or without an assistive device 5 Patient requires set up or clean up by helper. Patient completes activity by themselves 4 Supervision or touching assist (CGA). [place] provide cues , steadying assist 3 The helper provides less than half the effort to complete the activity 2 The helper provides more than half the effort to complete the activity 1 Dependent. The helper does all the effort to complete an activity 7 Patient refused to complete or attempt activity 9 The patient did not perform the activity before the current illness or injury 88 Not attempted due to Medical conditions or safety concerns Pt takes increased time to complete tasks due to decreased activity tolerance. Pt propelled self in w/c to therapy gym with 1 recovery break each, going to therapy gym and coming back to room. [place] pramod exercises completed against gravity. 5 reps 4 sets of 3 shldr/UE exercises completed. Pt took extended recovery break between each set. After therapy, pt sitting in w/c with call light/phone in reach. All needs met in room. OT Short Term Goals Short Term Goals Time Frame: Jun 10, 2018 Eating(FIM): 7 Grooming(FIM): 6 Toileting(FIM): 3 Transfers (B,C,W/C) (FIM): 4 Toilet/Commode Transfer(FIM): 3 Additional Short Term Goals: 1-Demonstrate ADL Tasks, 2-Verbalize Understanding , 3-ImproveStrength/[place] 1=Demonstrate adherence to instructed precautions during ADL tasks. 2=Patient will verbalize/demonstrate understanding of assistive devices/ modifications for ADL. 3=Patient will improve strength/tolerance for activity to enable patient to perform ADL's. OT Sound System Installer Goals Sound System Installer Goals Time Frame: Jun 24, 2018 Eating (FIM): 7 Eating (QC): 6 Groomin Oral Hygiene (QC): 6 Bathing(FIM): 5 Shower/Bathe Self (QC): 5 Upper Body Dressing(FIM): 6 Upper Body Dressing (QC): 6 Lower Body Dressing(FIM): 5 Lower Body Dressing (QC): 4 (SBA) On/Off Footwear (QC): 5 Toileting(FIM): 6 Toileting Hygiene (QC): 6 Toilet/Commode Transfer(FIM): 6 Toilet/Commode Transfer (QC): 6 Shower Transfer(FIM): 5 Additional Goals: 1-Demonstrate ADL Tasks, 2-Verbalize Understanding, 3- ImproveStrength/[place]ac[place] 1=Demonstrate adherence to instructed precautions during ADL tasks. 2=Patient will verbalize/demonstrate understanding of assistive devices/ modifications for ADL. 3=Patient will improve strength/tolerance for activity to enable patient to perform ADL's. OT Education/Plan Problem List/Assessment Pt would benefit from skilled OT to increase his independence in basic self care to allow him to safely return home Discharge Recommendations Plan/Recommendations: Continue POC Treatment Plan/Plan of Care Patient would benefit from OT for education, treatment and training to promote independence in ADL's, mobility, safety and/or upper extremity function for ADL' s. Plan of Care: ADL Retraining, Functional Mobility, Group Exercise/Act as Ind ( education, exercise, activity tolerance, functional mobility, funct activities, socialization), UE Funct Exercise/Act, UE Neuromus Re-Ed/Coord, W/C Management Training, OTHER (energy conservation and joint protection education and practice ) Treatment Duration: Jun 24, 2018 Frequency: At least 5 of 7 days/Wk (IRF) Estimated Hrs Per Day: 1.5 hours per day Agreement: Yes Rehab Potential: Good Time/GCodes Start Time: 14:00 Stop Time: 14:30 Total Time Billed (hr/min): 30 Billed Treatment Time 1 visit-EX 2 (30 min) MIGUEL COREY Jun 11, 2018 14:43
--- NOTE | 2018-06-11 15:23 | Physical Therapy Daily Note ---
PT Daily Note-Current Subjective Agrees to PT. "Boy, you guys are wearing me out this afternoon!" Hoping to discharge home next week. Transfers Therapy Code Descriptions/Definitions Functional [place] Measure: 0=Not Assessed/NA 4=Minimal Assistance 1=Total Assistance 5=Supervision or Setup 2=Maximal Assistance 6=Modified [place] 3=Moderate Assistance 7=Complete [place] Therapy Quality Codes: 6 Independent with activity with or without an assistive device 5 Patient requires set up or clean up by helper. Patient completes activity by themselves 4 Supervision or touching assist (CGA). [place] provide cues , steadying assist 3 The helper provides less than half the effort to complete the activity 2 The helper provides more than half the effort to complete the activity 1 Dependent. The helper does all the effort to complete an activity 7 Patient refused to complete or attempt activity 9 The patient did not perform the activity before the current illness or injury 88 Not attempted due to Medical conditions or safety concerns Weight Bearing Right Lower Extremity: Right Weight Bearing/Tolerated Left Lower Extremity: Left Full Weight Bearing Treatments Sit to stand all attempts with SBA. Pt ambulated x 120 ft x 2 and 80 ft x 1 with FWW with SB-CGA. Assessment Current Status: Good Progress Transfer skills improved and gait distance and safety improving as well. PT Short Term Goals Short Term Goals Time Frame: Jun 10, 2018 Transfers (B,C,W/C) (FIM): 4 (met) Gait (FIM): 4 Distance (FIM): 3=150 ft Gait Assistive Device: FWW Wheelchair (FIM): 6 Wheelchair Distance: 150'x2 Stairs (FIM): 2 # of Steps: 4 PT Restaurant Managing Partner Goals Restaurant Managing Partner Goals PT Restaurant Managing Partner Goals Time Frame: Jun 24, 2018 Transfers (B,C,W/C) (FIM): 7 Sit to Lying (QC): 6 Lying-Sitting on Side/Bed(QC): 6 Sit to Stand (QC): 6 Rollin Roll Left to Right (QC): 6 Chair/Nyn-wf-Ggtca Xfer(QC): 6 Car Transfer (QC): 6 Does the Patient Walk: Yes Gait (FIM): 6 Gait distance (FIM): 3=150 ft Walk 10 feet (QC): 6 Walk 10ft-Uneven Surface(QC): 6 Walk 50ft with 2 Turns (QC): 6 Walk 150 ft (QC): 6 Gait Assistive Device: FWW Wheelchair (FIM): 6 Stairs (FIM): 5 # of Steps: 4 1 Step (curb) (QC): 6 4 Steps (QC): 6 12 Steps (QC): 88 Stairs Level Of Assist: 6 Picking up an Object (QC): 4 PT Plan Problem List Problem List: Activity Tolerance, Functional Strength, Safety, Balance, Gait, Transfer, Bed Mobility Treatment/Plan Treatment Plan: Continue Plan of Care Treatment Plan: Bed Mobility, Education, Functional Activity Araceli, Functional Strength, Group Therapy, Gait, Safety, Therapeutic Exercise, Transfers Treatment Duration: Jun 24, 2018 Frequency: At least 5 of 7 days/Wk (IRF) Estimated Hrs Per Day: 1.5 hours per day Patient and/or Family Agrees t: Yes Safety Risks/Education Patient Education: Safety Issues Teaching Recipient: Patient Teaching Methods: Demonstration, Discussion Response to Teaching: Reinforcement Needed Time/GCodes Time In: 1330 Time Out: 1400 Total Billed Treatment Time: 30 Total Billed Treatment visit GT 30 MIGUEL DOBBINS PT Jun 11, 2018 15:23
[2018-06-11 16:30] VITALS: BP 96/61
[2018-06-11] MEDS: SIMvastatin 10 MG (ZOCOR) TAB PO SCH (20:23)
[2018-06-12 06:03] VITALS: BP 114/77
[2018-06-12] MEDS: KCL 10 MEQ TAB (MICRO K) PO SCH ×2 (06:06→17:14)
[2018-06-12] MEDS: metFORMIN 500 MG (GLUCOPHAGE) TAB PO SCH ×2 (06:06→17:14)
--- NOTE | 2018-06-12 08:56 | Physical Therapy Daily Note ---
PT Daily Note-Current Subjective Patient sitting EOB pre tx, agrees to PT, no complaints of pain. Appearance Patient in wheelchair at bedside post tx, has OT right after PT, has nurse call , phone, tray, all needs met. Mental Status Patient Orientation: Person, Place, Situation Transfers Therapy Code Descriptions/Definitions Functional [place] Measure: 0=Not Assessed/NA 4=Minimal Assistance 1=Total Assistance 5=Supervision or Setup 2=Maximal Assistance 6=Modified [place] 3=Moderate Assistance 7=Complete [place] Therapy Quality Codes: 6 Independent with activity with or without an assistive device 5 Patient requires set up or clean up by helper. Patient completes activity by themselves 4 Supervision or touching assist (CGA). [place] provide cues , steadying assist 3 The helper provides less than half the effort to complete the activity 2 The helper provides more than half the effort to complete the activity 1 Dependent. The helper does all the effort to complete an activity 7 Patient refused to complete or attempt activity 9 The patient did not perform the activity before the current illness or injury 88 Not attempted due to Medical conditions or safety concerns Transfers (B, C, W/C) (FIM): 5 Sit to/from Stand: 5 Bed to/from Chair: 5 appropriate use of hands and positioning Weight Bearing Right Lower Extremity: Right Weight Bearing/Tolerated Left Lower Extremity: Left Full Weight Bearing Gait Training Gait (FIM): 2 Distance: 100'x4 Gait Level of Assist: 5 Gait Persons Needed: 1 Gait Assistive Device: FWW Wide base of support, very little knee flexion, slumped posture. Steady ambulation. Wheelchair Training Does the Pt Use a Wheelchair?: Yes Wheelchair (FIM): 6 Distance: 150'x2 Type of Wheelchair: Manual Exercises Standing: Hamstring curls, Heel/toe raises, 3 way Ex=Flex, Abd, Ext (not extension), Marching, Mini squats Standing Reps: 15 NuStep Minutes: 15 NuStep Workload: 5 Treatments transfers, ambulation, functional strengthening Assessment Current Status: Fair Progress improving endurance PT Short Term Goals Short Term Goals Time Frame: Jun 10, 2018 Transfers (B,C,W/C) (FIM): 4 (met) Gait (FIM): 4 Distance (FIM): 3=150 ft Gait Assistive Device: FWW Wheelchair (FIM): 6 Wheelchair Distance: 150'x2 Stairs (FIM): 2 # of Steps: 4 PT Welder [employer]ed [employer] Goals Care Home Goals PT Welder [employer] Goals Time Frame: Jun 24, 2018 Transfers (B,C,W/C) (FIM): 7 Sit to Lying (QC): 6 Lying-Sitting on Side/Bed(QC): 6 Sit to Stand (QC): 6 Rollin Roll Left to Right (QC): 6 Chair/Arz-db-Gmats Xfer(QC): 6 Car Transfer (QC): 6 Does the Patient Walk: Yes Gait (FIM): 6 Gait distance (FIM): 3=150 ft Walk 10 feet (QC): 6 Walk 10ft-Uneven Surface(QC): 6 Walk 50ft with 2 Turns (QC): 6 Walk 150 ft (QC): 6 Gait Assistive Device: FWW Wheelchair (FIM): 6 Stairs (FIM): 5 # of Steps: 4 1 Step (curb) (QC): 6 4 Steps (QC): 6 12 Steps (QC): 88 Stairs Level Of Assist: 6 Picking up an Object (QC): 4 PT Plan Problem List Problem List: Activity Tolerance, Functional Strength, Safety, Balance, Gait, Transfer, Bed Mobility, ROM Treatment/Plan Treatment Plan: Continue Plan of Care Treatment Plan: Bed Mobility, Education, Functional Activity Araceli, Functional Strength, Group Therapy, Gait, Safety, Therapeutic Exercise, Transfers Treatment Duration: Jun 24, 2018 Frequency: At least 5 of 7 days/Wk (IRF) Estimated Hrs Per Day: 1.5 hours per day Patient and/or Family Agrees t: Yes Safety Risks/Education Patient Education: Gait Training, Transfer Techniques, Correct Positioning, Safety Issues Teaching Recipient: Patient Teaching Methods: Demonstration, Discussion Response to Teaching: Reinforcement Needed Time/GCodes Time In: 0800 Time Out: 0900 Total Billed Treatment Time: 60 Total Billed Treatment 1 visit EX 35' GT 25' JEWEL ALAN PT Jun 12, 2018 08:56
[2018-06-12] MEDS: COLCHICINE 0.6 MG (COLCRYS) TABLET PO SCH (09:01)
[2018-06-12] MEDS: ARIPIPRAZOLE 15 MG (ABILIFY) TAB PO SCH (09:01)
[2018-06-12] MEDS: lisINopril 10 MG (PRINIVIL) TABLET PO SCH (09:01)
[2018-06-12] MEDS: ULORIC 80 MG PO SCH (09:01)
[2018-06-12] MEDS: ASPIRIN E.C. 81 MG (ECOTRIN) TAB PO SCH (09:02)
[2018-06-12] MEDS: ENOXAPARIN 40 MG/0.4 ML (LOVENOX) SYR SC SCH ×2 (11:32→23:14)
--- NOTE | 2018-06-12 11:54 | Occupational Ther Daily Note ---
OT Current Status-Daily Note Subjective Pt alert, sitting in recliner. Pt agrees to therapy. No c/o pain at this time. Mental Status/Objective Patient Orientation: Person, Place, Time, Situation Therapy Code Descriptions/Definitions Functional [place] Measure: 0=Not Assessed/NA 4=Minimal Assistance 1=Total Assistance 5=Supervision or Setup 2=Maximal Assistance 6=Modified [place] 3=Moderate Assistance 7=Complete [place] ADL-Treatment Pt agrees to shower. Pt transferred into and out of shower with CGA using w/c, shower bench and grabbars. Pt completed own bathing, leaning side to side to cleanse buttocks, using grabbars, shower bench and hand held shower. Pt doffed/ donned lower body clothing with AE, SBA in standing to hike pants over hips. Pt donned/doffed upper body clothing by self after set up. Grooming sitting in front of sink. Using AE pt able to complete donning/doffing footwear with min A. Therapy Code Descriptions/Definitions Functional [place] Measure: 0=Not Assessed/NA 4=Minimal Assistance 1=Total Assistance 5=Supervision or Setup 2=Maximal Assistance 6=Modified [place] 3=Moderate Assistance 7=Complete [place] Therapy Quality Codes: 6 Independent with activity with or without an assistive device 5 Patient requires set up or clean up by helper. Patient completes activity by themselves 4 Supervision or touching assist (CGA). [place] provide cues , steadying assist 3 The helper provides less than half the effort to complete the activity 2 The helper provides more than half the effort to complete the activity 1 Dependent. The helper does all the effort to complete an activity 7 Patient refused to complete or attempt activity 9 The patient did not perform the activity before the current illness or injury 88 Not attempted due to Medical conditions or safety concerns Grooming (FIM): 6 Oral Hygiene (QC): 6 Bathing (FIM): 4 Bathing Location: L Arm, R Arm, L Upper Leg, R Upper Leg, L Lower Leg ( including foot), R Lower Leg (including foot), Chest, Abdomen, Buttocks, Perineal Area Shower/Bathe Self (QC): 4 Upper Body (FIM): 5 Upper Body Dressing (QC): 5 Lower Body Dressing (FIM): 4 Lower Body Dressing (QC): 3 On/Off Footwear (QC): 3 Shower Transfer(FIM): 4 Other Treatment Pt propelled w/c to therapy gym. Arm bike completed 12 min with 2 breaks at light resistance to increase strength and activity tolerance for daily functional tasks. After therapy, pt lying in bed with call light/phone in reach. All needs met in room. OT Short Term Goals Short Term Goals Time Frame: Jun 10, 2018 Eating(FIM): 7 Grooming(FIM): 6 Toileting(FIM): 3 Transfers (B,C,W/C) (FIM): 4 (met) Toilet/Commode Transfer(FIM): 3 Additional Short Term Goals: 1-Demonstrate ADL Tasks, 2-Verbalize Understanding , 3-ImproveStrength/Araceli 1=Demonstrate adherence to instructed precautions during ADL tasks. 2=Patient will verbalize/demonstrate understanding of assistive devices/ modifications for ADL. 3=Patient will improve strength/tolerance for activity to enable patient to perform ADL's. OT Fdc Goals Bakery [employer] Deli Sales Manager Goals Time Frame: Jun 24, 2018 Eating (FIM): 7 Eating (QC): 6 Groomin Oral Hygiene (QC): 6 Bathing(FIM): 5 Shower/Bathe Self (QC): 5 Upper Body Dressing(FIM): 6 Upper Body Dressing (QC): 6 Lower Body Dressing(FIM): 5 Lower Body Dressing (QC): 4 (SBA) On/Off Footwear (QC): 5 Toileting(FIM): 6 Toileting Hygiene (QC): 6 Toilet/Commode Transfer(FIM): 6 Toilet/Commode Transfer (QC): 6 Shower Transfer(FIM): 5 Additional Goals: 1-Demonstrate ADL Tasks, 2-Verbalize Understanding, 3- ImproveStrength/Araceli 1=Demonstrate adherence to instructed precautions during ADL tasks. 2=Patient will verbalize/demonstrate understanding of assistive devices/ modifications for ADL. 3=Patient will improve strength/tolerance for activity to enable patient to perform ADL's. OT Education/Plan Problem List/Assessment Pt would benefit from skilled OT to increase his independence in basic self care to allow him to safely return home Discharge Recommendations Plan/Recommendations: Continue POC Treatment Plan/Plan of Care Patient would benefit from OT for education, treatment and training to promote independence in ADL's, mobility, safety and/or upper extremity function for ADL' s. Plan of Care: ADL Retraining, Functional Mobility, Group Exercise/Act as Ind ( education, exercise, activity tolerance, functional mobility, funct activities, socialization), UE Funct Exercise/Act, UE Neuromus Re-Ed/Coord, W/C Management Training, OTHER (energy conservation and joint protection education and practice ) Treatment Duration: Jun 24, 2018 Frequency: At least 5 of 7 days/Wk (IRF) Estimated Hrs Per Day: 1.5 hours per day Agreement: Yes Rehab Potential: Good Time/GCodes Start Time: 09:00 Stop Time: 10:00 Total Time Billed (hr/min): 60 Billed Treatment Time 1 visit-ADL 3 (78 min) EX 1 (12 min) MIGUEL COREY Jun 12, 2018 11:54
--- NOTE | 2018-06-12 11:58 | Occupational Ther Daily Note ---
OT Current Status-Daily Note Subjective Pt alert, lying in bed. Pt agrees to therapy. No c/o pain at this time. Mental Status/Objective Patient Orientation: Person, Place, Time, Situation Therapy Code Descriptions/Definitions Functional [place] Measure: 0=Not Assessed/NA 4=Minimal Assistance 1=Total Assistance 5=Supervision or Setup 2=Maximal Assistance 6=Modified [place] 3=Moderate Assistance 7=Complete [place] Other Treatment Pt completed UE exercises with dowel pramod against gravity, 4 sets 5 reps. Then completed resistive clothespins 2x's each hand. Pt tolerated exercises well though took increased time due to decreased activity tolerance and SOA recovery time. After therapy, pt lying in bed with call light/phone in reach. All needs met in room. OT Short Term Goals Short Term Goals Time Frame: Jun 10, 2018 Eating(FIM): 7 Grooming(FIM): 6 Toileting(FIM): 3 Transfers (B,C,W/C) (FIM): 4 (met) Toilet/Commode Transfer(FIM): 3 Additional Short Term Goals: 1-Demonstrate ADL Tasks, 2-Verbalize Understanding , 3-ImproveStrength/Araceli 1=Demonstrate adherence to instructed precautions during ADL tasks. 2=Patient will verbalize/demonstrate understanding of assistive devices/ modifications for ADL. 3=Patient will improve strength/tolerance for activity to enable patient to perform ADL's. OT Retirement Goals Retirement Goals Time Frame: Jun 24, 2018 Eating (FIM): 7 Grooming(FIM): 6 Bathing(FIM): 5 Upper Body Dressing(FIM): 6 Lower Body Dressing(FIM): 5 Toileting(FIM): 6 Toilet/Commode Transfer(FIM): 6 Shower Transfer(FIM): 5 Additional Goals: 1-Demonstrate ADL Tasks, 2-Verbalize Understanding, 3- ImproveStrength/Araceli 1=Demonstrate adherence to instructed precautions during ADL tasks. 2=Patient will verbalize/demonstrate understanding of assistive devices/ modifications for ADL. 3=Patient will improve strength/tolerance for activity to enable patient to perform ADL's. OT Education/Plan Problem List/Assessment Pt would benefit from skilled OT to increase his independence in basic self care to allow him to safely return home Discharge Recommendations Plan/Recommendations: Continue POC Treatment Plan/Plan of Care Patient would benefit from OT for education, treatment and training to promote independence in ADL's, mobility, safety and/or upper extremity function for ADL' s. Plan of Care: ADL Retraining, Functional Mobility, Group Exercise/Act as Ind ( education, exercise, activity tolerance, functional mobility, funct activities, socialization), UE Funct Exercise/Act, UE Neuromus Re-Ed/Coord, W/C Management Training, OTHER (energy conservation and joint protection education and practice ) Treatment Duration: Jun 24, 2018 Frequency: At least 5 of 7 days/Wk (IRF) Estimated Hrs Per Day: 1.5 hours per day Agreement: Yes Rehab Potential: Good Time/GCodes Start Time: 11:30 Stop Time: 12:00 Total Time Billed (hr/min): 30 Billed Treatment Time 1 visit-EX 2 (30 min) MIGUEL COREY Jun 12, 2018 11:58
--- NOTE | 2018-06-12 13:53 | Physical Therapy Daily Note ---
PT Daily Note-Current Subjective Patient in bed pre tx, agrees to PT, no complaints of pain. Appearance Patient sitting EOB post tx with nurse call, phone, tray, all needs met. Mental Status Patient Orientation: Normal For Age Transfers Therapy Code Descriptions/Definitions Functional [place] Measure: 0=Not Assessed/NA 4=Minimal Assistance 1=Total Assistance 5=Supervision or Setup 2=Maximal Assistance 6=Modified [place] 3=Moderate Assistance 7=Complete [place] Therapy Quality Codes: 6 Independent with activity with or without an assistive device 5 Patient requires set up or clean up by helper. Patient completes activity by themselves 4 Supervision or touching assist (CGA). [place] provide cues , steadying assist 3 The helper provides less than half the effort to complete the activity 2 The helper provides more than half the effort to complete the activity 1 Dependent. The helper does all the effort to complete an activity 7 Patient refused to complete or attempt activity 9 The patient did not perform the activity before the current illness or injury 88 Not attempted due to Medical conditions or safety concerns Transfers (B, C, W/C) (FIM): 5 Scootin Rollin Supine to/from Sit: 6 Sit to/from Stand: 5 Bed to/from Chair: 5 Weight Bearing Right Lower Extremity: Right Weight Bearing/Tolerated Left Lower Extremity: Left Full Weight Bearing Gait Training Gait (FIM): 5 Distance: 150'x2 Gait Level of Assist: 5 Gait Persons Needed: 1 Gait Assistive Device: FWW slumped posture, wide MARVA Exercises Seated Therapy Exercises: Ankle pumps, Hip flexion Seated Reps: 20 LAQ alternating for 5 min Assessment Current Status: Fair Progress improving ambulation PT Short Term Goals Short Term Goals Time Frame: Jun 10, 2018 Transfers (B,C,W/C) (FIM): 4 (met) Gait (FIM): 4 Distance (FIM): 3=150 ft Gait Assistive Device: FWW Wheelchair (FIM): 6 Wheelchair Distance: 150'x2 Stairs (FIM): 2 # of Steps: 4 PT Senior Living Goals Director Of Managed Services Goals PT Senior Living Goals Time Frame: Jun 24, 2018 Transfers (B,C,W/C) (FIM): 7 Sit to Lying (QC): 6 Lying-Sitting on Side/Bed(QC): 6 Sit to Stand (QC): 6 Rollin Roll Left to Right (QC): 6 Chair/Zbg-ms-Kwciv Xfer(QC): 6 Car Transfer (QC): 6 Does the Patient Walk: Yes Gait (FIM): 6 Gait distance (FIM): 3=150 ft Walk 10 feet (QC): 6 Walk 10ft-Uneven Surface(QC): 6 Walk 50ft with 2 Turns (QC): 6 Walk 150 ft (QC): 6 Gait Assistive Device: FWW Wheelchair (FIM): 6 Stairs (FIM): 5 # of Steps: 4 1 Step (curb) (QC): 6 4 Steps (QC): 6 12 Steps (QC): 88 Stairs Level Of Assist: 6 Picking up an Object (QC): 4 PT Plan Problem List Problem List: Activity Tolerance, Functional Strength, Safety, Balance, Gait, Transfer, ROM Treatment/Plan Treatment Plan: Continue Plan of Care Treatment Plan: Bed Mobility, Education, Functional Activity Araceli, Functional Strength, Group Therapy, Gait, Safety, Therapeutic Exercise, Transfers Treatment Duration: Jun 24, 2018 Frequency: At least 5 of 7 days/Wk (IRF) Estimated Hrs Per Day: 1.5 hours per day Patient and/or Family Agrees t: Yes Safety Risks/Education Patient Education: Gait Training, Transfer Techniques, Correct Positioning, Safety Issues Teaching Recipient: Patient Teaching Methods: Demonstration, Discussion Response to Teaching: Reinforcement Needed Time/GCodes Time In: 1330 Time Out: 1400 Total Billed Treatment Time: 30 Total Billed Treatment 1 visit GT 20' EX 10' JEWEL ALAN PT Jun 12, 2018 13:53
[2018-06-12 18:26] VITALS: BP 94/62
[2018-06-12] MEDS: SIMvastatin 10 MG (ZOCOR) TAB PO SCH (20:17)
[2018-06-13 05:22] VITALS: BP 123/83
[2018-06-13] MEDS: metFORMIN 500 MG (GLUCOPHAGE) TAB PO SCH ×2 (06:27→17:02)
[2018-06-13] MEDS: KCL 10 MEQ TAB (MICRO K) PO SCH ×2 (06:27→17:02)
[2018-06-13] MEDS: lisINopril 10 MG (PRINIVIL) TABLET PO SCH (08:52)
[2018-06-13] MEDS: ASPIRIN E.C. 81 MG (ECOTRIN) TAB PO SCH (08:52)
[2018-06-13] MEDS: COLCHICINE 0.6 MG (COLCRYS) TABLET PO SCH (08:52)
[2018-06-13] MEDS: ARIPIPRAZOLE 15 MG (ABILIFY) TAB PO SCH (08:52)
[2018-06-13] MEDS: ULORIC 80 MG PO SCH (08:54)
[2018-06-13] MEDS: IBUPROFEN 800 MG (MOTRIN) TAB PO PRN (08:59)
--- NOTE | 2018-06-13 10:01 | Physical Therapy Daily Note ---
PT Daily Note-Current Subjective Pt. agrees to Rx. States he is a little dizzy at first but improved as time passed during Rx. Pain Location: No Pain Reported Mental Status Patient Orientation: Normal For Age flat affect, avoids eye contact Transfers Therapy Code Descriptions/Definitions Functional [place] Measure: 0=Not Assessed/NA 4=Minimal Assistance 1=Total Assistance 5=Supervision or Setup 2=Maximal Assistance 6=Modified [place] 3=Moderate Assistance 7=Complete [place] Therapy Quality Codes: 6 Independent with activity with or without an assistive device 5 Patient requires set up or clean up by helper. Patient completes activity by themselves 4 Supervision or touching assist (CGA). [place] provide cues , steadying assist 3 The helper provides less than half the effort to complete the activity 2 The helper provides more than half the effort to complete the activity 1 Dependent. The helper does all the effort to complete an activity 7 Patient refused to complete or attempt activity 9 The patient did not perform the activity before the current illness or injury 88 Not attempted due to Medical conditions or safety concerns Transfers (B, C, W/C) (FIM): 6 Scootin Rollin Supine to/from Sit: 6 Sit to/from Stand: 6 Weight Bearing Right Lower Extremity: Right Weight Bearing/Tolerated Left Lower Extremity: Left Full Weight Bearing Gait Training Does the Patient Walk?: Yes Gait (FIM): 4 Distance (FIM): 3=150 ft (150,75,50) Gait Level of Assist: 4 Gait Persons Needed: 1 Gait Assistive Device: FWW instructed in safety for turns, observed pt. pick FWW up and carry it near 180 degrees rather than small turns while still in weight bearing. pt. understood and demonstrated proper technique after explanation Wheelchair Training Does the Pt Use a Wheelchair?: Yes Wheelchair (FIM): 6 Wheelchair Distance: 3=150 ft (150) Wheelchair Level of Assist: 6 Type of Wheelchair: Manual Exercises Supine Ex: Bridging, Ankle pumps, Quad Set, Rolling, Glut sets, Heel Slides, Short Arc Quads, Scooting, Straight leg raise, Hip abd/add Supine Reps: 20 Seated Therapy Exercises: Ankle pumps, Sit to stand, Long arc quads, Hip flexion, Hip abd/add Seated Reps: 15 NuStep Minutes: 12 NuStep Workload: 3 Assessment Current Status: Good Progress BP seated: 126/80, HR 105 BP standin/74, HR 118 PT Short Term Goals Short Term Goals Time Frame: Jun 10, 2018 Transfers (B,C,W/C) (FIM): 4 (met) Gait (FIM): 4 Distance (FIM): 3=150 ft Gait Assistive Device: FWW Wheelchair (FIM): 6 Wheelchair Distance: 150'x2 Stairs (FIM): 2 # of Steps: 4 PT Robotics Testing Technician Goals Robotics Testing Technician Goals PT Residential Goals Time Frame: Jun 24, 2018 Transfers (B,C,W/C) (FIM): 7 Sit to Lying (QC): 6 Lying-Sitting on Side/Bed(QC): 6 Sit to Stand (QC): 6 Rollin Roll Left to Right (QC): 6 Chair/Tqr-zf-Nqnei Xfer(QC): 6 Car Transfer (QC): 6 Does the Patient Walk: Yes Gait (FIM): 6 Gait distance (FIM): 3=150 ft Walk 10 feet (QC): 6 Walk 10ft-Uneven Surface(QC): 6 Walk 50ft with 2 Turns (QC): 6 Walk 150 ft (QC): 6 Gait Assistive Device: FWW Wheelchair (FIM): 6 Stairs (FIM): 5 # of Steps: 4 1 Step (curb) (QC): 6 4 Steps (QC): 6 12 Steps (QC): 88 Stairs Level Of Assist: 6 Picking up an Object (QC): 4 PT Plan Treatment/Plan Treatment Plan: Continue Plan of Care Treatment Plan: Bed Mobility, Education, Functional Activity Araceli, Functional Strength, Group Therapy, Gait, Safety, Therapeutic Exercise, Transfers Treatment Duration: Jun 24, 2018 Frequency: At least 5 of 7 days/Wk (IRF) Estimated Hrs Per Day: 1.5 hours per day Patient and/or Family Agrees t: Yes Safety Risks/Education Patient Education: Gait Training, Transfer Techniques, Correct Positioning, W/ C Management, Disease Process, Safety Issues Teaching Recipient: Patient Teaching Methods: Demonstration, Discussion Response to Teaching: Verbalize Understanding, Return Demonstration, Reinforcement Needed Time/GCodes Time In: 900 Time Out: 1000 Total Billed Treatment Time: 60 Total Billed Treatment 1,EX30m,GT15m,FA15m G Codes Necessary: MEREDITH Monteiro ORCHESTRA DIRECTOR Jun 13, 2018 10:01
[2018-06-13] MEDS: ENOXAPARIN 40 MG/0.4 ML (LOVENOX) SYR SC SCH ×2 (11:44→23:50)
--- NOTE | 2018-06-13 11:48 | Occupational Ther Daily Note ---
OT Current Status-Daily Note Subjective Pt alert, sitting in w/c. Pt agrees to therapy. No c/o pain at this time. Mental Status/Objective Patient Orientation: Person, Place, Time, Situation Therapy Code Descriptions/Definitions Functional [place] Measure: 0=Not Assessed/NA 4=Minimal Assistance 1=Total Assistance 5=Supervision or Setup 2=Maximal Assistance 6=Modified [place] 3=Moderate Assistance 7=Complete [place] ADL-Treatment Therapy Code Descriptions/Definitions Functional [place] Measure: 0=Not Assessed/NA 4=Minimal Assistance 1=Total Assistance 5=Supervision or Setup 2=Maximal Assistance 6=Modified [place] 3=Moderate Assistance 7=Complete [place] Therapy Quality Codes: 6 Independent with activity with or without an assistive device 5 Patient requires set up or clean up by helper. Patient completes activity by themselves 4 Supervision or touching assist (CGA). [place] provide cues , steadying assist 3 The helper provides less than half the effort to complete the activity 2 The helper provides more than half the effort to complete the activity 1 Dependent. The helper does all the effort to complete an activity 7 Patient refused to complete or attempt activity 9 The patient did not perform the activity before the current illness or injury 88 Not attempted due to Medical conditions or safety concerns Other Treatment Pt propelled w/c to therapy gym. Pt completed arm bike with light resistance set for 12 min with multiple breaks to increase UE strength and activity tolerance. Theraband exercises completed and HEP given to pt. Pt was educated on HEP then was able to demonstrate correct positioning and movement. Medium resistance theraputty completed for pinch/grasp strengthening for ADLs. Pt takes increased time with tasks due to multiple breaks and SOA. After therapy, pt propelled w/c to [facility] for group lunch. All needs met. Education OT Patient Education: Home exercise program Teaching Recipient: Patient Teaching Methods: Demonstration, Handout Response to Teaching: Verbalize Understanding, Return Demonstration OT Short Term Goals Short Term Goals Time Frame: Jun 10, 2018 Eating(FIM): 7 Grooming(FIM): 6 Toileting(FIM): 3 Transfers (B,C,W/C) (FIM): 4 (met) Toilet/Commode Transfer(FIM): 3 Additional Short Term Goals: 1-Demonstrate ADL Tasks, 2-Verbalize Understanding , 3-ImproveStrength/Araceli 1=Demonstrate adherence to instructed precautions during ADL tasks. 2=Patient will verbalize/demonstrate understanding of assistive devices/ modifications for ADL. 3=Patient will improve strength/tolerance for activity to enable patient to perform ADL's. OT Shoe Repairer Apprentice Goals Custodial Goals Time Frame: Jun 24, 2018 Eating (FIM): 7 Eating (QC): 6 Groomin Oral Hygiene (QC): 6 Bathing(FIM): 5 Shower/Bathe Self (QC): 5 Upper Body Dressing(FIM): 6 Upper Body Dressing (QC): 6 Lower Body Dressing(FIM): 5 Lower Body Dressing (QC): 4 (SBA) On/Off Footwear (QC): 5 Toileting(FIM): 6 Toileting Hygiene (QC): 6 Toilet/Commode Transfer(FIM): 6 Toilet/Commode Transfer (QC): 6 Shower Transfer(FIM): 5 Additional Goals: 1-Demonstrate ADL Tasks, 2-Verbalize Understanding, 3- ImproveStrength/Araceli 1=Demonstrate adherence to instructed precautions during ADL tasks. 2=Patient will verbalize/demonstrate understanding of assistive devices/ modifications for ADL. 3=Patient will improve strength/tolerance for activity to enable patient to perform ADL's. OT Education/Plan Problem List/Assessment Pt would benefit from skilled OT to increase his independence in basic self care to allow him to safely return home Discharge Recommendations Plan/Recommendations: Continue POC Treatment Plan/Plan of Care Patient would benefit from OT for education, treatment and training to promote independence in ADL's, mobility, safety and/or upper extremity function for ADL' s. Plan of Care: ADL Retraining, Functional Mobility, Group Exercise/Act as Ind ( education, exercise, activity tolerance, functional mobility, funct activities, socialization), UE Funct Exercise/Act, UE Neuromus Re-Ed/Coord, W/C Management Training, OTHER (energy conservation and joint protection education and practice ) Treatment Duration: Jun 24, 2018 Frequency: At least 5 of 7 days/Wk (IRF) Estimated Hrs Per Day: 1.5 hours per day Agreement: Yes Rehab Potential: Good Time/GCodes Start Time: 10:00 Stop Time: 11:00 Total Time Billed (hr/min): 60 Billed Treatment Time 1 visit-EX 4 (60 min) MIGUEL COREY Jun 13, 2018 11:48
--- NOTE | 2018-06-13 12:29 | Therapy Group Daily Note ---
Therapy Daily Group Note Patient Education Topic Home Safety, Fall Prevention, Exercises, Other List Below Exercises LE Seated Exercise, Sit to/from Stand, UE Exercise Other/Notes Pt. seen in group therapy this date for socialization, UE exercise, LE exercise , and education for balance and pain management. Pt. tolerated treatment well. Began treatment with reporting name and verbalizing memory of favorite [place] tradition. Worked on seated exercises for increased endurance and overall strength. Lunch trays came and pt. transferred to table area. Ate with other pt's while therapy provided education for maintaining balance and pain. All needs met after session over. Start Time: 11:00 Stop Time: 12:00 Total Billed Treatment Time: 60 Total Billed Treatment 1, GRP YESICA CARTWRIGHT OT Jun 13, 2018 12:29
--- NOTE | 2018-06-13 12:48 | Progress Note-Hospitalist ---
Subjective HPI/CC On Admission Date Seen by Provider: Jun 13, 2018 Time Seen by Provider: 12:00 Subjective/Events-last exam Patient doing well today Hypotension noted in the evening time but now 123/69 Talked about thyroid gland nodule and I reviewed those imaging scans Bowels are moving Overall improving Objective Exam Vital Signs Vital Signs Date Time Temp Pulse Resp B/P (MAP) Pulse Ox O2 Delivery O2 Flow Rate FiO2 06/13/18 05:22 97.7 86 20 123/83 (96) 95 Room Air Capillary Refill : General Appearance: No Apparent Distress, WD/WN, Chronically ill, Obese Respiratory: Chest Non Tender, Lungs Clear, Normal Breath Sounds, No Accessory Muscle Use, No Respiratory Distress Cardiovascular: Regular Rate, Rhythm, No Edema, No Gallop, No JVD, No Murmur, Normal Peripheral Pulses Neurologic/Psychiatric: Alert, Oriented x3, No Motor/Sensory Deficits, Normal Mood/Affect Results/Procedures Lab Patient resulted labs reviewed. Assessment/Plan Assessment and Plan Assess & Plan/Chief Complaint Assessment: Severe debility Rheumatoid arthritis Gout Hypotension in the evening time Plan: Reviewed scans of thyroid Monitor blood pressure in the evening time Diagnosis/Problems Diagnosis/Problems (1) Debility Status: Acute (2) Rheumatoid arthritis Status: Chronic Qualifiers: Rheumatoid arthritis location: unspecified site (3) Gout Status: Chronic Qualifiers: Gout site: knee Gout etiology: unspecified cause Chronicity: acute Laterality: left Qualified Codes: M10.9 - Gout, unspecified (4) Gastroesophageal reflux Status: Chronic Qualifiers: Esophagitis presence: without esophagitis Qualified Codes: K21.9 - Gastro- esophageal reflux disease without esophagitis (5) BMI 50.0-59.9, adult Status: Chronic Clinical Quality Measures DVT/VTE Risk/Contraindication: Risk Factor Score Per Nursin RFS Level Per Nursing on Admit: 4+=Very High DENILSON TAYLOR DO Jun 13, 2018 12:48
[2018-06-13 17:00] VITALS: BP 164/69
[2018-06-13] MEDS: SIMvastatin 10 MG (ZOCOR) TAB PO SCH (20:04)
[2018-06-14] MEDS: metFORMIN 500 MG (GLUCOPHAGE) TAB PO SCH ×2 (05:36→17:32)
[2018-06-14] MEDS: KCL 10 MEQ TAB (MICRO K) PO SCH ×2 (05:37→17:32)
[2018-06-14 05:41] VITALS: BP 126/81
[2018-06-14] MEDS: COLCHICINE 0.6 MG (COLCRYS) TABLET PO SCH (08:33)
[2018-06-14] MEDS: ASPIRIN E.C. 81 MG (ECOTRIN) TAB PO SCH (08:33)
[2018-06-14] MEDS: lisINopril 10 MG (PRINIVIL) TABLET PO SCH (08:33)
[2018-06-14] MEDS: ARIPIPRAZOLE 15 MG (ABILIFY) TAB PO SCH (08:33)
[2018-06-14] MEDS: ULORIC 80 MG PO SCH (08:35)
[2018-06-14] MEDS: IBUPROFEN 800 MG (MOTRIN) TAB PO PRN (08:36)
[2018-06-14] MEDS: ENOXAPARIN 40 MG/0.4 ML (LOVENOX) SYR SC SCH ×2 (10:39→23:22)
[2018-06-14 16:38] VITALS: BP 117/72
[2018-06-14] MEDS: SIMvastatin 10 MG (ZOCOR) TAB PO SCH (21:15)
[2018-06-15 05:34] VITALS: BP 137/78
[2018-06-15] MEDS: KCL 10 MEQ TAB (MICRO K) PO SCH ×2 (06:26→17:12)
[2018-06-15] MEDS: metFORMIN 500 MG (GLUCOPHAGE) TAB PO SCH ×2 (06:26→17:13)
[2018-06-15] MEDS: COLCHICINE 0.6 MG (COLCRYS) TABLET PO SCH (08:41)
[2018-06-15] MEDS: ASPIRIN E.C. 81 MG (ECOTRIN) TAB PO SCH (08:41)
[2018-06-15] MEDS: lisINopril 10 MG (PRINIVIL) TABLET PO SCH (08:41)
[2018-06-15] MEDS: ARIPIPRAZOLE 15 MG (ABILIFY) TAB PO SCH (08:41)
[2018-06-15] MEDS: ULORIC 80 MG PO SCH (08:42)
--- NOTE | 2018-06-15 09:27 | Physical Therapy Daily Note ---
PT Daily Note-Current Subjective Pt visiting with nurse about obtaining a day pass for [place]. Transfers Therapy Code Descriptions/Definitions Functional [place] Measure: 0=Not Assessed/NA 4=Minimal Assistance 1=Total Assistance 5=Supervision or Setup 2=Maximal Assistance 6=Modified [place] 3=Moderate Assistance 7=Complete [place] Therapy Quality Codes: 6 Independent with activity with or without an assistive device 5 Patient requires set up or clean up by helper. Patient completes activity by themselves 4 Supervision or touching assist (CGA). [place] provide cues , steadying assist 3 The helper provides less than half the effort to complete the activity 2 The helper provides more than half the effort to complete the activity 1 Dependent. The helper does all the effort to complete an activity 7 Patient refused to complete or attempt activity 9 The patient did not perform the activity before the current illness or injury 88 Not attempted due to Medical conditions or safety concerns Transfers (B, C, W/C) (FIM): 5 Supine to/from Sit: 5 Sit to/from Stand: 5 verbal cues to shift wt forward in chair and flex knees Weight Bearing Right Lower Extremity: Right Weight Bearing/Tolerated Left Lower Extremity: Left Full Weight Bearing Gait Training Gait (FIM): 6 Distance: 200 Gait Level of Assist: 5 Gait Persons Needed: 1 Gait Assistive Device: FWW Ambulate 200ft x 3 trials with FWW and SBA. Education for safety. Amb 100ft with narrow base quad cane, CGA and education on sequence. Stair Training Stair Training: Handrails/: 2 handrails Stairs (FIM): 12 up and down 12 steps SBA with bilateral rails Exercises Supine Ex: Bridging, Quad Set, Rolling, Lower trunk rotation, Heel Slides, Short Arc Quads, Hip abd/add Supine Reps: [address] Ex=Flex, Abd, Ext, Marching, Mini squats, Sit to Stand Standing Reps: 10 Assessment Pt showing gains with gait stability and confidence. Pt was stable with single point cane but had minimal fear and anxiety that accelerated fatigue. Therapeutic exercise to promote improved function and safety. he will benefit from continued therpay. PT Short Term Goals Short Term Goals Time Frame: Jun 10, 2018 Transfers (B,C,W/C) (FIM): 4 (met) Gait (FIM): 4 Distance (FIM): 3=150 ft Gait Assistive Device: FWW Wheelchair (FIM): 6 Wheelchair Distance: 150'x2 Stairs (FIM): 2 # of Steps: 4 PT Long-Term Goals Pesticide Use Medical Coordinator Goals PT Long-Term Goals Time Frame: Jun 24, 2018 Transfers (B,C,W/C) (FIM): 7 Sit to Lying (QC): 6 Lying-Sitting on Side/Bed(QC): 6 Sit to Stand (QC): 6 Rollin Roll Left to Right (QC): 6 Chair/[id number] Xfer(QC): 6 Car Transfer (QC): 6 Does the Patient Walk: Yes Gait (FIM): 6 Gait distance (FIM): 3=150 ft Walk 10 feet (QC): 6 Walk 10ft-Uneven Surface(QC): 6 Walk 50ft with 2 Turns (QC): 6 Walk 150 ft (QC): 6 Gait Assistive Device: FWW Wheelchair (FIM): 6 Stairs (FIM): 5 # of Steps: 4 1 Step (curb) (QC): 6 4 Steps (QC): 6 12 Steps (QC): 88 Stairs Level Of Assist: 6 Picking up an Object (QC): 4 PT Plan Treatment/Plan Treatment Plan: Continue Plan of Care Treatment Plan: Bed Mobility, Education, Functional Activity Araceli, Functional Strength, Group Therapy, Gait, Safety, Therapeutic Exercise, Transfers Treatment Duration: Jun 24, 2018 Frequency: At least 5 of 7 days/Wk (IRF) Estimated Hrs Per Day: 1.5 hours per day Patient and/or Family Agrees t: Yes Time/GCodes Time In: 830 Time Out: 930 Total Billed Treatment Time: 60 Total Billed Treatment visit, gait 30 min, exercise 30 min HENRY DO PT Jun 15, 2018 09:27
[2018-06-15] MEDS: ENOXAPARIN 40 MG/0.4 ML (LOVENOX) SYR SC SCH ×2 (11:11→23:07)
--- NOTE | 2018-06-15 11:16 | Occupational Ther Daily Note ---
OT Current Status-Daily Note Subjective Pt alert, sitting in w/c. Pt asked about day pass for 06/16/2018, reported to socially responsible investment adviser who has already been working on it. Pt agrees to therapy. No c /o pain. Mental Status/Objective Patient Orientation: Person, Place, Time, Situation Therapy Code Descriptions/Definitions Functional [place] Measure: 0=Not Assessed/NA 4=Minimal Assistance 1=Total Assistance 5=Supervision or Setup 2=Maximal Assistance 6=Modified [place] 3=Moderate Assistance 7=Complete [place] ADL-Treatment Using w/c, pt sat at sink to complete own grooming. Pt then transfers into shower using w/c, grabbars and shower bench with SBA. Completes bathing with supervision using shower bench, grabbars and hand held shower. Doffs lower body clothing with dressing stick. Dresses lower body on shower bench using dressing stick and grabbars with SBA in standing to hike pants over hips. Set up only for upper body dressing. Set up to place socks on sock aide then pt able to don own socks. Assist to manipulate shoe onto foot while pt uses long handle shoe horn to don shoes. After therapy, pt sitting in w/c with call light /phone in reach. All needs met in room. Therapy Code Descriptions/Definitions Functional [place] Measure: 0=Not Assessed/NA 4=Minimal Assistance 1=Total Assistance 5=Supervision or Setup 2=Maximal Assistance 6=Modified [place] 3=Moderate Assistance 7=Complete [place] Therapy Quality Codes: 6 Independent with activity with or without an assistive device 5 Patient requires set up or clean up by helper. Patient completes activity by themselves 4 Supervision or touching assist (CGA). [place] provide cues , steadying assist 3 The helper provides less than half the effort to complete the activity 2 The helper provides more than half the effort to complete the activity 1 Dependent. The helper does all the effort to complete an activity 7 Patient refused to complete or attempt activity 9 The patient did not perform the activity before the current illness or injury 88 Not attempted due to Medical conditions or safety concerns Grooming (FIM): 6 Oral Hygiene (QC): 6 Bathing (FIM): 5 Bathing Location: L Arm, R Arm, L Upper Leg, R Upper Leg, L Lower Leg ( including foot), R Lower Leg (including foot), Chest, Abdomen, Buttocks, Perineal Area Shower/Bathe Self (QC): 4 Upper Body (FIM): 5 Upper Body Dressing (QC): 5 Lower Body Dressing (FIM): 4 Lower Body Dressing (QC): 3 On/Off Footwear (QC): 3 Shower Transfer(FIM): 5 OT Short Term Goals Short Term Goals Time Frame: Jun 10, 2018 Eating(FIM): 7 Grooming(FIM): 6 Toileting(FIM): 3 Transfers (B,C,W/C) (FIM): 4 (met) Toilet/Commode Transfer(FIM): 3 Additional Short Term Goals: 1-Demonstrate ADL Tasks, 2-Verbalize Understanding , 3-ImproveStrength/Araceli 1=Demonstrate adherence to instructed precautions during ADL tasks. 2=Patient will verbalize/demonstrate understanding of assistive devices/ modifications for ADL. 3=Patient will improve strength/tolerance for activity to enable patient to perform ADL's. OT Info Analyst Goals Shelter Goals Time Frame: Jun 24, 2018 Eating (FIM): 7 Eating (QC): 6 Groomin Oral Hygiene (QC): 6 Bathing(FIM): 5 Shower/Bathe Self (QC): 5 Upper Body Dressing(FIM): 6 Upper Body Dressing (QC): 6 Lower Body Dressing(FIM): 5 Lower Body Dressing (QC): 4 (SBA) On/Off Footwear (QC): 5 Toileting(FIM): 6 Toileting Hygiene (QC): 6 Toilet/Commode Transfer(FIM): 6 Toilet/Commode Transfer (QC): 6 Shower Transfer(FIM): 5 Additional Goals: 1-Demonstrate ADL Tasks, 2-Verbalize Understanding, 3- ImproveStrength/Araceli 1=Demonstrate adherence to instructed precautions during ADL tasks. 2=Patient will verbalize/demonstrate understanding of assistive devices/ modifications for ADL. 3=Patient will improve strength/tolerance for activity to enable patient to perform ADL's. OT Education/Plan Problem List/Assessment Pt would benefit from skilled OT to increase his independence in basic self care to allow him to safely return home Discharge Recommendations Plan/Recommendations: Continue POC Treatment Plan/Plan of Care Patient would benefit from OT for education, treatment and training to promote independence in ADL's, mobility, safety and/or upper extremity function for ADL' s. Plan of Care: ADL Retraining, Functional Mobility, Group Exercise/Act as Ind ( education, exercise, activity tolerance, functional mobility, funct activities, socialization), UE Funct Exercise/Act, UE Neuromus Re-Ed/Coord, W/C Management Training, OTHER (energy conservation and joint protection education and practice ) Treatment Duration: Jun 24, 2018 Frequency: At least 5 of 7 days/Wk (IRF) Estimated Hrs Per Day: 1.5 hours per day Agreement: Yes Rehab Potential: Good Time/GCodes Start Time: 10:30 Stop Time: 11:15 Total Time Billed (hr/min): 45 Billed Treatment Time 1 visit-ADL 3 (45 min) MIGUEL COREY Jun 15, 2018 11:16
--- NOTE | 2018-06-15 11:55 | Progress Note-Hospitalist ---
Subjective HPI/CC On Admission Date Seen by Provider: Jun 15, 2018 Time Seen by Provider: 10:15 Subjective/Events-last exam Patient doing well Pain is controlled Bowels are moving Wants a day pass for [place] celebration with family Updated him on thyroid ultrasound revealing no mass Checked meds and labs Review of Systems General: Fatigue Objective Exam Vital Signs Vital Signs Date Time Temp Pulse Resp B/P (MAP) Pulse Ox O2 Delivery O2 Flow Rate FiO2 06/15/18 05:34 98.9 95 16 137/78 (97) 99 Room Air Capillary Refill : General Appearance: No Apparent Distress, WD/WN, Chronically ill, Obese Respiratory: Chest Non Tender, Lungs Clear, Normal Breath Sounds, No Accessory Muscle Use, No Respiratory Distress Cardiovascular: Regular Rate, Rhythm, No Edema, No Gallop, No JVD, No Murmur, Normal Peripheral Pulses Neurologic/Psychiatric: Alert, Oriented x3, No Motor/Sensory Deficits, Normal Mood/Affect Results/Procedures Lab Patient resulted labs reviewed. Assessment/Plan Assessment and Plan Assess & Plan/Chief Complaint Assessment: Severe debility Rheumatoid arthritis Gout Hypotension in the evening time Plan: Reviewed scans of thyroid and updated him on results Monitor blood pressure in the evening time Diagnosis/Problems Diagnosis/Problems (1) Debility Status: Acute (2) Rheumatoid arthritis Status: Chronic Qualifiers: Rheumatoid arthritis location: unspecified site (3) Gout Status: Chronic Qualifiers: Gout site: knee Gout etiology: unspecified cause Chronicity: acute Laterality: left Qualified Codes: M10.9 - Gout, unspecified (4) Gastroesophageal reflux Status: Chronic Qualifiers: Esophagitis presence: without esophagitis Qualified Codes: K21.9 - Gastro- esophageal reflux disease without esophagitis (5) BMI 50.0-59.9, adult Status: Chronic Clinical Quality Measures DVT/VTE Risk/Contraindication: Risk Factor Score Per Nursin RFS Level Per Nursing on Admit: 4+=Very High DENILSON TAYLOR DO Jun 15, 2018 11:55
--- NOTE | 2018-06-15 13:25 | Therapy Group Daily Note ---
Therapy Daily Group Note Patient Education Topic Exercises Exercises LE Seated Exercise, Stretching, UE Exercise Other/Notes This patient presented to group therapy via wheelchair. Group consisted of memory tasks and conversation with others regarding [place] memories with work on detail recall. In addition memory challenged with trivia tasks. Pt was very interactive and able to answer several trivia questions about this time of year. This was followed by group exercise to include U/LE strength and UE stretching. Pt was actively engaged in the activity. in addition, he took one exercsie and demonstrated correct performance. He was social and discussed options for home adaptions once discharged. Pt engaged and enjoyed group therapy in which socialization is important with an extended hospital stay. Pt in his room in his wheelchair post treatment. Start Time: 11:30 Stop Time: 12:45 Total Billed Treatment Time: 75 Total Billed Treatment visit GRP 75 MIGUEL DOBBINS PT Jun 15, 2018 13:25
[2018-06-15 16:53] VITALS: BP 96/63
[2018-06-15] MEDS: SIMvastatin 10 MG (ZOCOR) TAB PO SCH (20:05)
[2018-06-16 06:27] VITALS: BP 132/83
[2018-06-16] MEDS: metFORMIN 500 MG (GLUCOPHAGE) TAB PO SCH ×2 (06:32→19:58)
[2018-06-16] MEDS: KCL 10 MEQ TAB (MICRO K) PO SCH ×2 (06:32→19:58)
[2018-06-16] MEDS: ASPIRIN E.C. 81 MG (ECOTRIN) TAB PO SCH (08:16)
[2018-06-16] MEDS: COLCHICINE 0.6 MG (COLCRYS) TABLET PO SCH (08:16)
[2018-06-16] MEDS: ARIPIPRAZOLE 15 MG (ABILIFY) TAB PO SCH (08:16)
[2018-06-16] MEDS: lisINopril 10 MG (PRINIVIL) TABLET PO SCH (08:16)
[2018-06-16] MEDS: ULORIC 80 MG PO SCH (08:17)
[2018-06-16] MEDS: ENOXAPARIN 40 MG/0.4 ML (LOVENOX) SYR SC SCH ×2 (10:59→23:12)
[2018-06-16] MEDS: SIMvastatin 10 MG (ZOCOR) TAB PO SCH (19:59)
[2018-06-17 05:25] VITALS: BP 103/64
[2018-06-17] MEDS: KCL 10 MEQ TAB (MICRO K) PO SCH (06:04)
[2018-06-17] MEDS: metFORMIN 500 MG (GLUCOPHAGE) TAB PO SCH (06:04)
[2018-06-17] MEDS: ARIPIPRAZOLE 15 MG (ABILIFY) TAB PO SCH (09:07)
[2018-06-17] MEDS: lisINopril 10 MG (PRINIVIL) TABLET PO SCH (09:07)
[2018-06-17] MEDS: COLCHICINE 0.6 MG (COLCRYS) TABLET PO SCH (09:07)
[2018-06-17] MEDS: ASPIRIN E.C. 81 MG (ECOTRIN) TAB PO SCH (09:07)
[2018-06-17] MEDS: ULORIC 80 MG PO SCH (09:08)
--- NOTE | 2018-06-17 09:42 | Physical Therapy Daily Note ---
PT Daily Note-Current Subjective pt reports he feels he is ready to go home tomorrow and is looking forward to it Pain Numeric Pain Scale: 0-No Pain Appearance upon arrival into pt's room, pt sitting up in chair awake and alert awaiting meds from nurse. Nurse arrived during session and pt received his meds At end of session, Mental Status Patient Orientation: Person, Place, Time, Eyes Open, Situation, Normal For Age Transfers Therapy Code Descriptions/Definitions Functional [place] Measure: 0=Not Assessed/NA 4=Minimal Assistance 1=Total Assistance 5=Supervision or Setup 2=Maximal Assistance 6=Modified [place] 3=Moderate Assistance 7=Complete [place] Therapy Quality Codes: 6 Independent with activity with or without an assistive device 5 Patient requires set up or clean up by helper. Patient completes activity by themselves 4 Supervision or touching assist (CGA). [place] provide cues , steadying assist 3 The helper provides less than half the effort to complete the activity 2 The helper provides more than half the effort to complete the activity 1 Dependent. The helper does all the effort to complete an activity 7 Patient refused to complete or attempt activity 9 The patient did not perform the activity before the current illness or injury 88 Not attempted due to Medical conditions or safety concerns Transfers (B, C, W/C) (FIM): 7 Scootin Rollin Roll Left to Right (QC): 6 Supine to/from Sit: 7 Sit to/from Stand: 7 Sit to Lying (QC): 6 Sit to Stand (QC): 6 Chair/Tks-bi-Amzfh Xfer(QC): 6 Bed to/from Chair: 7 Car Transfer (QC): 6 verb inst required x1 episode for walker and hand placement for technique and safety, although pt demo steadiness when not performed with correct technique Weight Bearing Right Lower Extremity: Right Weight Bearing/Tolerated Left Lower Extremity: Left Full Weight Bearing Gait Training Does the Patient Walk?: Yes Gait (FIM): 6 Distance (FIM): 3=150 ft Distance: 350 x2 Walk 10 feet (QC): 6 Walk 50 ft with 2 Turns(QC): 6 Walk 150 ft (QC): 6 Walking 10ft/uneven surface-QC: 6 Gait Level of Assist: 6 Gait Persons Needed: 1 Gait Assistive Device: FWW ER of LE's, decreased trunk rotation, step length and height, verb inst x1 episode for maintaining proper distance from walker and decreasing wt through UE 's Wheelchair Training Does the Pt Use a Wheelchair?: No Stair Training Stair Training: Handrails/: 2 handrails Stairs (FIM): 4 #of Steps: 8 1 Step (curb) (QC): 6 4 Steps (QC): 4 Stairs: Pattern: Step to Level of Assist: 5 performed step to and reciprocating ascending stairs x 4 stairs each. Step to pattern descending 4x2. LE shakiness during 2nd set of stairs Balance Picking up an Object (QC): 5 Special Test Comments uses UE on stable surface to assist in steadying self, unable to flower buncher or picker small object as a spoon due to arthritic hands and decreased dexterity, but was able to flower buncher or picker ~ 3inch cylindrical object safely Exercises Supine Ex: Rolling, Scooting Supine Reps: 5 Seated Therapy Exercises: Ankle pumps, Sit to stand, Long arc quads, Hip flexion, Hip abd/add Seated Reps: 20 Standing: Marching, Sit to Stand, Side steps, Unilateral stance, Weight shifts Standing Reps: 20 without UE support but with walker in front and chair behind. Increased LE shaking and requiring sitting rest between activities performed Treatments transfer gait and stair training, balance and strength ex Assessment Current Status: Good Progress PT Short Term Goals Short Term Goals Time Frame: Jun 10, 2018 Transfers (B,C,W/C) (FIM): 4 (met) Gait (FIM): 4 Distance (FIM): 3=150 ft Gait Assistive Device: FWW Wheelchair (FIM): 6 Wheelchair Distance: 150'x2 Stairs (FIM): 2 # of Steps: 4 PT Manager Code Goals Care Home Goals PT Care Home Goals Time Frame: Jun 24, 2018 Transfers (B,C,W/C) (FIM): 7 Sit to Lying (QC): 6 Lying-Sitting on Side/Bed(QC): 6 Sit to Stand (QC): 6 Rollin Roll Left to Right (QC): 6 Chair/Wzz-ga-Yelqu Xfer(QC): 6 Car Transfer (QC): 6 Does the Patient Walk: Yes Gait (FIM): 6 Gait distance (FIM): 3=150 ft Walk 10 feet (QC): 6 Walk 10ft-Uneven Surface(QC): 6 Walk 50ft with 2 Turns (QC): 6 Walk 150 ft (QC): 6 Gait Assistive Device: FWW Wheelchair (FIM): 6 Stairs (FIM): 5 # of Steps: 4 1 Step (curb) (QC): 6 4 Steps (QC): 6 12 Steps (QC): 88 Stairs Level Of Assist: 6 Picking up an Object (QC): 4 PT Plan Problem List Problem List: Activity Tolerance, Functional Strength, Safety, Balance, Gait, Transfer Treatment/Plan Treatment Plan: Continue Plan of Care Treatment Plan: Bed Mobility, Education, Functional Activity Araceli, Functional Strength, Group Therapy, Gait, Safety, Therapeutic Exercise, Transfers Treatment Duration: Jun 24, 2018 Frequency: At least 5 of 7 days/Wk (IRF) Estimated Hrs Per Day: 1.5 hours per day Patient and/or Family Agrees t: Yes Safety Risks/Education Patient Education: Gait Training, Transfer Techniques, Steps, Safety Issues Teaching Recipient: Patient Teaching Methods: Discussion Response to Teaching: Verbalize Understanding, Return Demonstration Time/GCodes Time In: 900 Time Out: 1000 Total Billed Treatment Time: 60 Total Billed Treatment 1 visit FA x30 min Gt x15 min Ex x15 min SERVANDO COUGHLIN SLUDGE FILTRATION OPERATOR Jun 17, 2018 09:42
--- NOTE | 2018-06-17 10:48 | Occupational Ther Daily Note ---
OT Current Status-Daily Note Subjective Pt alert, sitting in w/c. Pt agrees to therapy. No c/o pain at this time. Pt discharging to home tomorrow. Mental Status/Objective Patient Orientation: Person, Place, Time, Situation Therapy Code Descriptions/Definitions Functional [place] Measure: 0=Not Assessed/NA 4=Minimal Assistance 1=Total Assistance 5=Supervision or Setup 2=Maximal Assistance 6=Modified [place] 3=Moderate Assistance 7=Complete [place] ADL-Treatment Therapy Code Descriptions/Definitions Functional [place] Measure: 0=Not Assessed/NA 4=Minimal Assistance 1=Total Assistance 5=Supervision or Setup 2=Maximal Assistance 6=Modified [place] 3=Moderate Assistance 7=Complete [place] Therapy Quality Codes: 6 Independent with activity with or without an assistive device 5 Patient requires set up or clean up by helper. Patient completes activity by themselves 4 Supervision or touching assist (CGA). [place] provide cues , steadying assist 3 The helper provides less than half the effort to complete the activity 2 The helper provides more than half the effort to complete the activity 1 Dependent. The helper does all the effort to complete an activity 7 Patient refused to complete or attempt activity 9 The patient did not perform the activity before the current illness or injury 88 Not attempted due to Medical conditions or safety concerns Eating (FIM): 7 (Pt demonstrates the ability to complete by self.) Eating (QC): 6 Grooming (FIM): 6 (Sitting in w/c, pt able to complete at sink.) Oral Hygiene (QC): 6 Bathing (FIM): 6 (Pt able to complete using long handle sponge, grabbars, hand held shower and shower bench.) Bathing Location: L Arm, R Arm, L Upper Leg, R Upper Leg, L Lower Leg ( including foot), R Lower Leg (including foot), Chest, Abdomen, Buttocks, Perineal Area Shower/Bathe Self (QC): 6 Upper Body (FIM): 6 (Retrieve clothing at w/c level, pt able to complete by self.) Upper Body Dressing (QC): 6 Lower Body Dressing (FIM): 4 (Retreives at w/c level, pt able to don/doff pants using drsg stick and stands with grabbar to hike pants over hips. Pt requires assist to manipulate sock aide and long handle shoe horn to don foot wear.) Lower Body Dressing (QC): 3 On/Off Footwear (QC): 3 Toileting (FIM): 6 (Per pt, transfers onto toilet and completes toileting using BSC and toilet tongs.) Toileting Hygiene (QC): 6 Toilet/Commode Transfer (FIM): 6 (Using grabbar, BSC and w/c.) Toilet Transfer (QC): 6 Shower Transfer(FIM): 6 (Using w/c, grabbars and shower bench.) Other Treatment Pt completed UE exercises to increase strength and activity tolerance for daily functional tasks. After therapy, pt sitting in recliner with call light/phone in reach. All needs met in room. OT Short Term Goals Short Term Goals Time Frame: Jun 10, 2018 Eating(FIM): 7 Grooming(FIM): 6 Toileting(FIM): 3 Transfers (B,C,W/C) (FIM): 4 (met) Toilet/Commode Transfer(FIM): 3 Additional Short Term Goals: 1-Demonstrate ADL Tasks, 2-Verbalize Understanding , 3-ImproveStrength/Araceli 1=Demonstrate adherence to instructed precautions during ADL tasks. 2=Patient will verbalize/demonstrate understanding of assistive devices/ modifications for ADL. 3=Patient will improve strength/tolerance for activity to enable patient to perform ADL's. OT Longterm Goals Longterm Goals Time Frame: Jun 24, 2018 Eating (FIM): 7 (met) Eating (QC): 6 (met) Groomin (met) Oral Hygiene (QC): 6 (met) Bathing(FIM): 5 (met) Shower/Bathe Self (QC): 5 (met) Upper Body Dressing(FIM): 6 (met) Upper Body Dressing (QC): 6 (met) Lower Body Dressing(FIM): 5 (not met) Lower Body Dressing (QC): 4 (SBA) On/Off Footwear (QC): 5 (not met) Toileting(FIM): 6 (met) Toileting Hygiene (QC): 6 (met) Toilet/Commode Transfer(FIM): 6 (met) Toilet/Commode Transfer (QC): 6 (met) Shower Transfer(FIM): 5 (met) Additional Goals: 1-Demonstrate ADL Tasks, 2-Verbalize Understanding, 3- ImproveStrength/[place]ac[place] 1=Demonstrate adherence to instructed precautions during ADL tasks. 2=Patient will verbalize/demonstrate understanding of assistive devices/ modifications for ADL. 3=Patient will improve strength/tolerance for activity to enable patient to perform ADL's. OT Education/Plan Problem List/Assessment Pt would benefit from skilled OT to increase his independence in basic self care to allow him to safely return home Discharge Recommendations Plan/Recommendations: Continue POC Therapy D/C Recommendations: Occupational Therapy Home Care Treatment Plan/Plan of Care Patient would benefit from OT for education, treatment and training to promote independence in ADL's, mobility, safety and/or upper extremity function for ADL' s. Plan of Care: ADL Retraining, Functional Mobility, Group Exercise/Act as Ind ( education, exercise, activity tolerance, functional mobility, funct activities, socialization), UE Funct Exercise/Act, UE Neuromus Re-Ed/Coord, W/C Management Training, OTHER (energy conservation and joint protection education and practice ) Treatment Duration: Jun 24, 2018 Frequency: At least 5 of 7 days/Wk (IRF) Estimated Hrs Per Day: 1.5 hours per day Agreement: Yes Rehab Potential: Good Time/GCodes Start Time: 10:00 Stop Time: 11:00 Total Time Billed (hr/min): 60 Billed Treatment Time 1 visit-ADL 3 (50 min) EX 1 (10 min) MIGUEL COREY Jun 17, 2018 10:48
[2018-06-17 10:59] LABS: HEMOGLOBIN 11.8 G/DL (13.3-17.7); MEAN PLATELET VOLUME 9.6 FL (7.4-10.4); RED BLOOD COUNT 5.03 10^6/uL (4.35-5.85); RED CELL DISTRIBUTION WIDTH 17.9 % (10.0-14.5); WHITE BLOOD COUNT 9.6 10^3/uL (4.3-11.0)
[2018-06-17 11:12] LABS: ALANINE AMINOTRANSFERASE 49 U/L (0-55); ALBUMIN 4.4 GM/DL (3.2-4.5); ALKALINE PHOSPHATASE 63 U/L (40-136); BILIRUBIN,TOTAL 1.1 MG/DL (0.1-1.0); BUN/CREATININE RATIO 7; CALCIUM 9.6 MG/DL (8.5-10.1); CARBON DIOXIDE 19 MMOL/L (21-32); CHLORIDE 107 MMOL/L (98-107); CREATININE SERUM 1.47 MG/DL (0.60-1.30); GFR ESTIMATED > 60; GLUCOSE 120 MG/DL (70-105); MAGNESIUM 1.7 MG/DL (1.8-2.4); POTASSIUM 3.4 MMOL/L (3.6-5.0); SODIUM 142 MMOL/L (135-145); TOTAL PROTEIN 7.4 GM/DL (6.4-8.2)
[2018-06-17] MEDS: ENOXAPARIN 40 MG/0.4 ML (LOVENOX) SYR SC SCH (11:30)
[2018-06-17] MEDS ORDERED: KCL 10 MEQ TAB (MICRO K) PO SCH (12:00)
[2018-06-17] MEDS ORDERED: POTA10TA6 PO (12:49)
[2018-06-17] MEDS ORDERED: MAGN400T6 PO (12:49)
[2018-06-17] MEDS ORDERED: ASPI-983 PO (12:49)
[2018-06-17 15:07] VITALS: BP 103/64
--- NOTE | 2018-06-17 15:33 | Therapy Group Daily Note ---
Therapy Daily Group Note Patient Education Topic Exercises, Other List Below Exercises LE Seated Exercise, UE Exercise Other/Notes Pt transported via w/c to OT/PT group in [facility]. Group consisted of introductions (name, number of siblings, favorite [place] gift), socialization , seated UE/LE exercises and education on utilizing everyday items for exercising. Pt introduced self appropriately and actively listened to peers. Completed and tolerated UE/LE seated exercises then was able to contribute an exercise. Verbalized understanding of educational topics and was able to contribute own personal strategies. After therapy, pt lying in bed with call light/phone in reach. All needs met in room. Start Time: 13:00 Stop Time: 14:00 Total Billed Treatment Time: 60 Total Billed Treatment 1 visit GRP x60 min SERVANDO COUGHLIN PTA Jun 17, 2018 15:33
--- NOTE | 2018-06-17 16:00 | Therapy Team Discharge Summary ---
Therapy Discharge Summary Discharge Recommendations Date of Discharge Jun 17, 2018 at 15:00 Therapy D/C Recommendations: Occupational Therapy Home Care, Physical Therapy Home Care Physical Therapy This patient was admitted to ARU post acute hospital stay due to impaired functional mobility with a dx of RA and gout. He had also had a recent decline in function due to an ankle fracture in Mar 2018. Prior to this recent decline , he was indep with all functional mobiltiy. Upon admission to this unit, he was max assist with transfers, unable to effectively ambulate or attempts stairs and had limited functional activity toelrance. Treatment has consisted of functional strength, transfers, gait, activity tolerance, balance and safety. He has made excellent progress. He is indep with transfers, ambulates mod indep and able to go up/down steps. All goals have been met to a satisfactory level. Pt to discharge home with follow up care as needed. Occupational Therapy Decreased Activ Tolerance, Decreased UE Strength, Dependent Transfers, Impaired I ADL's, Impaired Self-Care Skills PT Graphics Edit Technician Goals [facility] Goals PT Graphics Edit Technician Goals Time Frame: Jun 24, 2018 Transfers (B,C,W/C) (FIM): 7 (met) Roll Left to Right (QC): 6 Sit to Lying (QC): 6 Lying-Sitting on Side/Bed(QC): 6 Sit to Stand (QC): 6 Chair/Rtu-ey-Mdqiv Xfer(QC): 6 Car Transfer (QC): 6 Does the Patient Walk: Yes Gait (FIM): 6 (met) Gait distance (FIM): 3=150 ft Walk 10 feet (QC): 6 Walk 10ft-Uneven Surface(QC): 6 Walk 50ft with 2 Turns (QC): 6 Walk 150 ft (QC): 6 Gait Assistive Device: FWW Wheelchair (FIM): 6 Stairs (FIM): 5 (scored a 4) # of Steps: 4 1 Step (curb) (QC): 6 4 Steps (QC): 6 12 Steps (QC): 88 Stairs Level Of Assist: 6 Picking up an Object (QC): 4 all goals met to a satisfactory level OT Graphics Edit Technician Goals Graphics Edit Technician Goals Time Frame: Jun 24, 2018 Eating (FIM): 7 Eating (QC): 6 Oral Hygiene (QC): 6 Grooming(FIM): 6 Bathing(FIM): 5 Shower/Bathe Self (QC): 5 Upper Body Dressing(FIM): 6 Upper Body Dressing (QC): 6 Lower Body Dressing(FIM): 5 Lower Body Dressing (QC): 4 (SBA) On/Off Footwear (QC): 5 Toileting(FIM): 6 Toileting Hygiene (QC): 6 Toilet/Commode Transfer(FIM): 6 Toilet/Commode Transfer (QC): 6 Shower Transfer(FIM): 5 Additional Goals: 1-Demonstrate ADL Tasks, 2-Verbalize Understanding, 3- ImproveStrength/Arac[place] 1=Demonstrate adherence to instructed precautions during ADL tasks. 2=Patient will verbalize/demonstrate understanding of assistive devices/ modifications for ADL. 3=Patient will improve strength/tolerance for activity to enable patient to perform ADL's. Speech Graphics Edit Technician Goals [facility] Goals Patient will effectively demonstrate cognitive communication skills for safe return home. MIGUEL DOBBINS PT Jun 17, 2018 16:00
--- NOTE | 2018-06-17 17:01 | Therapy Team Discharge Summary ---
Therapy Discharge Summary Discharge Recommendations Date of Discharge Jun 17, 2018 at 15:00 Therapy D/C Recommendations: Occupational Therapy Home Care, Physical Therapy Home Care Occupational Therapy Pt seen for skilled OT to increase his independence in basic self care to allow him to safely return home. On admission he needed setup for eating, groomed mod I at sink at w/c level, bathed with min assist, dressed upper body with setup and was dependant for lower body dressing and toileting/toilet transfer. By discharge he had progressed to being independent with eating, modified independent with grooming, bathing, upper body dressing, toileting/toilet transfer. He needed min assist for lower body dressing for putting on socks and shoes. Equipment used included BSC, toilet tongs, dressing stick, sock aid, FWW , w/c, shower bench, grab bars, hand held shower. See tx plan for goals met. Recommend outpatient OT. DC OT. Decreased Activ Tolerance, Decreased UE Strength, Dependent Transfers, Impaired I ADL's, Impaired Self-Care Skills PT Fpc Goals Fpc Goals PT Vp Platforms Goals Time Frame: Jun 24, 2018 Transfers (B,C,W/C) (FIM): 7 (met) Roll Left to Right (QC): 6 Sit to Lying (QC): 6 Lying-Sitting on Side/Bed(QC): 6 Sit to Stand (QC): 6 Chair/Aii-qs-Wrqkm Xfer(QC): 6 Car Transfer (QC): 6 Does the Patient Walk: Yes Gait (FIM): 6 (met) Gait distance (FIM): 3=150 ft Walk 10 feet (QC): 6 Walk 10ft-Uneven Surface(QC): 6 Walk 50ft with 2 Turns (QC): 6 Walk 150 ft (QC): 6 Gait Assistive Device: FWW Wheelchair (FIM): 6 Stairs (FIM): 5 (scored a 4) # of Steps: 4 1 Step (curb) (QC): 6 4 Steps (QC): 6 12 Steps (QC): 88 Stairs Level Of Assist: 6 Picking up an Object (QC): 4 OT Fpc Goals Vp Platforms Goals Time Frame: Jun 24, 2018 Eating (FIM): 7 (met) Eating (QC): 6 (met) Oral Hygiene (QC): 6 (met) Grooming(FIM): 6 (met) Bathing(FIM): 5 (met) Shower/Bathe Self (QC): 5 (met) Upper Body Dressing(FIM): 6 (met) Upper Body Dressing (QC): 6 (met) Lower Body Dressing(FIM): 5 (not met) Lower Body Dressing (QC): 4 (not met) On/Off Footwear (QC): 5 (not met) Toileting(FIM): 6 (met) Toileting Hygiene (QC): 6 (met) Toilet/Commode Transfer(FIM): 6 (met) Toilet/Commode Transfer (QC): 6 (met) Shower Transfer(FIM): 5 (met) Additional Goals: 1-Demonstrate ADL Tasks, 2-Verbalize Understanding, 3- ImproveStrength/Araceli 1=Demonstrate adherence to instructed precautions during ADL tasks. 2=Patient will verbalize/demonstrate understanding of assistive devices/ modifications for ADL. 3=Patient will improve strength/tolerance for activity to enable patient to perform ADL's. Speech Fpc Goals Vp Platforms Goals Patient will effectively demonstrate cognitive communication skills for safe return home. MUKESH FISHER OT Jun 17, 2018 17:01
[2018-06-17] MEDS ORDERED: MAGNESIUM OXIDE (MAG-OX)400 MG TAB PO SCH (18:00)
== END 2018-06-17 15:00 | disposition home or self-care (01) | DRG 546 ==
PROVIDERS: ADMIT Physical Medicine & Rehabilitation; ATTEND Physical Medicine & Rehabilitation
DX: M06.9 Rheumatoid arthritis, unspecified (principal); M10.9 Gout, unspecified; R29.898 Other symptoms and signs involving the musculoskeletal system; I12.9 Hypertensive chronic kidney disease with stage 1 through stage 4 chronic kidney disease, or unspecified chronic kidney disease; N18.2 Chronic kidney disease, stage 2 (mild); E11.22 Type 2 diabetes mellitus with diabetic chronic kidney disease; E66.9 Obesity, unspecified; Z68.41 Body mass index [BMI] 40.0-44.9, adult; E04.1 Nontoxic single thyroid nodule; G47.30 Sleep apnea, unspecified; K21.9 Gastro-esophageal reflux disease without esophagitis; F32.9 Major depressive disorder, single episode, unspecified; E87.6 Hypokalemia; R07.89 Other chest pain; I95.9 Hypotension, unspecified
CPT/HCPCS: 36415; 80053; 82962; 83735; 85027

== ENCOUNTER 2018-10-14 14:18 | Emergency (ER) | payer MEDICARE ==
[~2018-10-14] VITALS: Ht 177.8 cm; Wt 128.8 kg
[~2018-10-14 14:18] MED LIST changes: +MAGN400T6 PO
[2018-10-14 14:56] LABS: BASOPHILS % (AUTO) 0 % (0-10); EOSINOPHILS % (AUTO) 0 % (0-10); HEMATOCRIT 39 % (40-54); HEMOGLOBIN 13.5 G/DL (13.3-17.7); LYMPHOCYTES # (AUTO) 2.2 X 10^3 (1.0-4.0); LYMPHOCYTES % (AUTO) 16 % (12-44); MEAN CORPUSCULAR HEMOGLOBIN 24 PG (25-34); MEAN CORPUSCULAR HGB CONC 34 G/DL (32-36); MEAN CORPUSCULAR VOLUME 70 FL (80-99); MEAN PLATELET VOLUME 10.8 FL (7.4-10.4); MONOCYTES # (AUTO) 0.8 X 10^3 (0.0-1.0); MONOCYTES % (AUTO) 6 % (0-12); NEUTROPHILS # (AUTO) 10.4 X 10^3 (1.8-7.8); NEUTROPHILS % (AUTO) 77 % (42-75); PLATELET COUNT 375 10^3/uL (130-400); RED CELL DISTRIBUTION WIDTH 14.6 % (10.0-14.5); WHITE BLOOD COUNT 13.5 10^3/uL (4.3-11.0)
[2018-10-14 15:04] LABS: INR 0.9 (0.8-1.4); PROTHROMBIN TIME PATIENT 12.8 SEC (12.2-14.7)
[2018-10-14 15:18] LABS: ALANINE AMINOTRANSFERASE 14 U/L (0-55); ALKALINE PHOSPHATASE 97 U/L (40-136); BILIRUBIN,TOTAL 1.5 MG/DL (0.1-1.0); BUN/CREATININE RATIO 13; CARBON DIOXIDE 21 MMOL/L (21-32); CHLORIDE 84 MMOL/L (98-107); CREATININE SERUM 2.39 MG/DL (0.60-1.30); GFR ESTIMATED 35; MAGNESIUM 2.3 MG/DL (1.8-2.4); POTASSIUM 2.9 MMOL/L (3.6-5.0); SODIUM 127 MMOL/L (135-145); TOTAL PROTEIN 7.6 GM/DL (6.4-8.2)
--- NOTE | 2018-10-14 15:22 | ED Respiratory ---
General Chief Complaint: Respiratory Problems Stated Complaint: OXYGEN LEVELS DROPPING;LOW HR Nursing Triage Note: PT SENT FROM [facility], [facility] SOA, AND REFLUX Source: patient, spouse Exam Limitations: no limitations History of Present Illness Date Seen by Provider: Oct 14, 2018 Time Seen by Provider: 15:20 Initial Comments Patient went to his primary care provider this afternoon complaining of dyspnea. While walking his O2 saturations dropped into the 70s. He was referred here for evaluation of possible PE. Patient has no chest pain and is not dyspneic at rest. He denies fevers chills or cough. He is compliant with his medication. He is very obese. Allergies and Home Medications Allergies Coded Allergies: Penicillins (Verified Allergy, Unknown, 01/31/16) Home Medications Aripiprazole 15 Mg Tablet, 15 MG PO DAILY, (Reported) Aspirin 81 Mg Tablet.dr, 81 MG PO DAILY Prescribed by: YAEL SHEEHAN on 06/17/18 1249 Colchicine 0.6 Mg Tablet, 0.6 MG PO BID PRN for GOUT FLARE, (Reported) Febuxostat 80 Mg Tablet, 80 MG PO DAILY, (Reported) Ibuprofen 800 Mg Tablet, 800 MG PO TID PRN for PAIN-MILD, (Reported) Lisinopril 10 Mg Tablet, 10 MG PO DAILY, (Reported) Mag Hydrox/Al Hydrox/Simeth 30 Ml Oral.susp, 30 ML PO HS PRN for INDIGESTION, ( Reported) Magnesium Oxide 400 Mg Tablet, 400 MG PO BIDPC Prescribed by: YAEL SHEEHAN on 06/17/18 1249 Metformin HCl 500 Mg Tablet, 500 MG PO BID, (Reported) Potassium Chloride 10 Meq Tablet.er, 10 MEQ PO TIDWM Prescribed by: YAEL SHEEHAN on 06/17/18 1249 Pravastatin Sodium 10 Mg Tablet, 10 MG PO HS, (Reported) Patient Home Medication List Home Medication List Reviewed: Yes Review of Systems Review of Systems Constitutional: No fever; malaise, weakness Respiratory: short of breath Cardiovascular: no symptoms reported Genitourinary: no symptoms reported Musculoskeletal: no symptoms reported All Other Systems Reviewed Negative Unless Noted: Yes Past Ycpxkjq-Mmgagv-Kmljox Hx Patient Social History Alcohol Use: Denies Use Number of Drinks Today: AA Alcohol Beverage of Choice: Beer Recreational Drug Use: No Smoking Status: Former Smoker Type Used: Cigarettes, Smokeless Tobacco Former Smoker, Quit: Jan 19, 1990 Recent Foreign Travel: No Contact w/Someone Who Travel: No Recent Infectious Disease Expo: No Recent Hopitalizations: No Physical Abuse: No Sexual Abuse: No Immunizations Up To Date Tetanus Booster (TDap): Unknown Date of Pneumonia Vaccine: Aug 08, 2013 Seasonal Allergies Seasonal Allergies: No Past Medical History Surgeries: Yes Gallbladder, Tonsillectomy Respiratory: Yes (SLEEP APNEA) Sleep Apnea Currently Using CPAP: Yes Currently Using BIPAP: No Cardiac: Yes High Cholesterol, Hypertension Neurological: No Reproductive Disorders: No Sexually Transmitted Disease: No HIV/AIDS: No Genitourinary: No Gastrointestinal: No Gastroesophageal Reflux Musculoskeletal: Yes Arthritis, Rheumatoid Arthritis, Gout Endocrine: Yes Diabetes, Non-Insulin dep, Lupus HEENT: No Cancer: No Psychosocial: Yes (History of psychosis) Depression Integumentary: No Blood Disorders: No Family Medical History Diabetes mellitus 19 MOTHER PATERNAL GRANDFATHER Neoplasm 19 FATHER (THROAT CANCER-SMOKER) No Pertinent Family Hx Physical Exam Vital Signs - First Documented 10/14/18 14:25 Temp 96.9 Pulse 120 Resp 18 B/P (MAP) 108/76 (87) Pulse Ox 95 O2 Delivery Room Air Capillary Refill : Less Than 3 Seconds Height: 5'10.00" Weight: 284lbs. 9.6oz. 128.652129pe; 43.8 BMI Method:Stated General Appearance: WD/WN, no apparent distress Eyes: Bilateral Eye Normal Inspection, Bilateral Eye PERRL, Bilateral Eye EOMI HEENT: PERRL/EOMI, pharynx normal Neck: supple Respiratory: no respiratory distress, decreased breath sounds Cardiovascular: no edema, no gallop, no JVD, no murmur, bradycardia Gastrointestinal: non tender, soft Extremities: normal inspection Neurologic/Psychiatric: alert, normal mood/affect Skin: normal color, warm/dry Focused Exam Lactate Level 10/14/18 14:39: Lactic Acid Level 5.65*H 10/14/18 17:11: Lactic Acid Level Laboratory Tests Test 10/14/18 14:39 10/14/18 17:11 Lactic Acid Level 5.65 MMOL/L (0.50-2.00) *H Progress/Results/Core Measures Suspected Sepsis Recent Fever Within 48 Hours: No Infection Criteria Present: None New/Unexplained Altered Menta: No Sepsis Screen: No Definite Risk SIRS Temperature:96.9 Pulse: 120 Respiratory Rate: 18 Laboratory Tests 4/24/19 14:30: White Blood Count 13.5H Blood Pressure 108 /76 Mean: 87 10/14/18 14:39: Lactic Acid Level 5.65*H 10/14/18 17:11: Laboratory Tests 10/14/18 14:30: Creatinine 2.39H, INR Comment 0.9, Platelet Count 375, Total Bilirubin 1.5H Results/Orders Lab Results Laboratory Tests Test 10/14/18 14:30 10/14/18 14:39 10/14/18 16:30 10/14/18 16:40 Range/Units White Blood Count 13.5 H 4.3-11.0 10^3/uL Red Blood Count 5.64 4.35-5.85 10^6/uL Hemoglobin 13.5 13.3-17.7 G/DL Hematocrit 39 L 40-54 % Mean Corpuscular Volume 70 L 80-99 FL Mean Corpuscular Hemoglobin 24 L 25-34 PG Mean Corpuscular Hemoglobin Concent 34 32-36 G/DL Red Cell Distribution Width 14.6 H 10.0-14.5 % Platelet Count 375 130-400 10^3/uL Mean Platelet Volume 10.8 H 7.4-10.4 FL Neutrophils (%) (Auto) 77 H 42-75 % Lymphocytes (%) (Auto) 16 12-44 % Monocytes (%) (Auto) 6 0-12 % Eosinophils (%) (Auto) 0 0-10 % Basophils (%) (Auto) 0 0-10 % Neutrophils # (Auto) 10.4 H 1.8-7.8 X 10^3 Lymphocytes # (Auto) 2.2 1.0-4.0 X 10^3 Monocytes # (Auto) 0.8 0.0-1.0 X 10^3 Eosinophils # (Auto) 0.0 0.0-0.3 10^3/uL Basophils # (Auto) 0.0 0.0-0.1 10^3/uL Prothrombin Time 12.8 12.2-14.7 SEC INR Comment 0.9 0.8-1.4 Activated Partial Thromboplast Time 31 24-35 SEC Sodium Level 127 L 135-145 MMOL/L Potassium Level 2.9 L 3.6-5.0 MMOL/L Chloride Level 84 L 98-107 MMOL/L Carbon Dioxide Level 21 21-32 MMOL/L Anion Gap 22 H 5-14 MMOL/L Blood Urea Nitrogen 30 H 7-18 MG/DL Creatinine 2.39 H 0.60-1.30 MG/DL Estimat Glomerular Filtration Rate 35 BUN/Creatinine Ratio 13 Glucose Level 801 *H 70-105 MG/DL Calcium Level 10.0 8.5-10.1 MG/DL Corrected Calcium 10.0 8.5-10.1 MG/DL Magnesium Level 2.3 1.8-2.4 MG/DL Total Bilirubin 1.5 H 0.1-1.0 MG/DL Aspartate Amino Transf (AST/SGOT) 12 5-34 U/L Alanine Aminotransferase (ALT/SGPT) 14 0-55 U/L Alkaline Phosphatase 97 40-136 U/L Troponin I < 0.028 <0.028 NG/ML B-Type Natriuretic Peptide 15.4 <100.0 PG/ML Total Protein 7.6 6.4-8.2 GM/DL Albumin 4.0 3.2-4.5 GM/DL Lactic Acid Level 5.65 *H 0.50-2.00 MMOL/L Blood Gas Puncture Site RIGHT RADIAL Blood Gas Patient Temperature 98.5 Arterial Blood pH 7.47 H 7.37-7.43 Arterial Blood Partial Pressure CO2 39 35-45 MMHG Arterial Blood Partial Pressure O2 74 L 79-93 MMHG Arterial Blood HCO3 28 H 23-27 MMOL/L Arterial Blood Total CO2 29.3 21.0-31.0 MMOL/L Arterial Blood Oxygen Saturation 95 94-100 % Arterial Blood Base Excess 4.5 H -2.5-2.5 MMOL/L Osmra Test POSITIVE Blood Gas Ventilator Setting NO Blood Gas Inspired Oxygen ROOM AIR Urine Color YELLOW Urine Clarity CLEAR Urine pH 6 5-9 Urine Specific [place] 1.010 L 1.016-1.022 Urine Protein NEGATIVE NEGATIVE Urine Glucose (UA) 4+ H NEGATIVE Urine Ketones NEGATIVE NEGATIVE Urine Nitrite NEGATIVE NEGATIVE Urine Bilirubin NEGATIVE NEGATIVE Urine Urobilinogen NORMAL NORMAL MG/DL Urine Leukocyte Esterase NEGATIVE NEGATIVE Urine RBC (Auto) NEGATIVE NEGATIVE Urine RBC NONE /HPF Urine WBC RARE /HPF Urine Crystals NONE /LPF Urine Bacteria NEGATIVE /HPF Urine Casts NONE /LPF Urine Mucus NEGATIVE /LPF Urine Culture Indicated NO Test 10/14/18 17:02 10/14/18 17:11 Range/Units Glucometer > 600 *H 70-110 MG/DL My Orders Orders - MIKHAIL HENSLEY MD Cbc With Automated Diff (10/14/18 14:43) Magnesium (10/14/18 14:43) Chest 1 View, Ap/Pa Only (10/14/18 14:43) Ekg Tracing (10/14/18 14:43) Cardiac Profile 1 (10/14/18 14:43) Comprehensive Metabolic Panel (10/14/18 14:43) Protime With Inr (10/14/18 14:43) Partial Thromboplastin Time (10/14/18 14:43) O2 (10/14/18 14:43) Monitor-Rhythm Ecg Trace Only (10/14/18 14:43) Ed Iv/Invasive Line Start (10/14/18 14:43) Lactic Acid Analyzer (10/14/18 14:46) Ns Iv 1000 Ml (Sodium Chloride 0.9%) (10/14/18 15:30) Ns Iv 1000 Ml (Sodium Chloride 0.9%) (10/14/18 15:25) BNP (10/14/18 15:50) Insulin (Regular) Human (Humulin R (Per (10/14/18 16:15) Ns Iv 1000 Ml (Sodium Chloride 0.9%) (10/14/18 16:15) Potassium Cl 10meq/50ml Ivpb (Kcl 10 Meq (10/14/18 16:30) Potassium Chloride (Tablet) (K Dur Table (10/14/18 16:30) Arterial Blood Gas (10/14/18 16:46) Arterial Blood Draw (10/14/18 16:49) Urinalysis (10/14/18 17:01) Beta Hydroxybutyrate (10/14/18 17:11) Normal Saline 1l Iv (10/14/18 17:45) Potassium Chloride (Tablet) (K Dur Table (10/14/18 17:45) Medications Given in ED Current Medications Medications Dose Ordered Sig/Rosa M Route Start Time Stop Time Status Last Admin Dose Admin Insulin Human Regular 10 unit ONCE ONCE IV 10/14/18 16:15 10/14/18 16:16 DC 10/14/18 16:30 10 UNIT Potassium Chloride 20 meq ONCE ONCE PO 10/14/18 16:30 10/14/18 16:31 DC 10/14/18 16:50 20 MEQ Vital Signs/I&O 10/14/18 14:25 Temp 96.9 Pulse 120 Resp 18 B/P (MAP) 108/76 (87) Pulse Ox 95 O2 Delivery Room Air Capillary Refill : Less Than 3 Seconds Blood Pressure Mean: 87 Progress Note : Time: 17:29 Progress Note Patient needs critical care bed. They are unavailable here. I spoke with the [facility] [address] Estrella. Requested blood gas to rule out DKA. Blood gas revealed a pH of 7.47. According to Dr. Arriaza. He requests 3 l iv hydration and replace potassium and recheck a stat K ECG Initial ECG Impression Date: Oct 14, 2018 Initial ECG Impression Time: 15:21 Initial ECG Rate: 97 Initial ECG Rhythm: Normal Sinus Initial ECG Intervals: Normal Initial ECG Impression: Nonspecific Changes Departure Communication (Admissions) Urinalysis negative for ketones. 3 L in. Stable for discharge Impression Primary Impression: Renal failure Additional Impressions: Diabetes mellitus out of control Hypokalemia Disposition: 01 HOME, SELF-CARE Condition: Stable Transfer Time Spoke to Accepting Phy: 17:32 Transfer Progress Notes spoke with Dr Smith. We will hydrate with 3 L NS, replace potassium and give insulin and recheck stat K prior to transfer. If potassium 3.6 start Insulin drip. Transfer Time: 17:34 Transfer Facility: [facility] Method of Transfer: EMS Departure-Patient Inst. Referrals: EDGARDO BATES MD (PCP/Family) Primary Care Physician MIKHAIL HENSLEY MD Oct 14, 2018 15:22
[2018-10-14] MEDS ORDERED: NS IV 1000 ML 1,000 ML ONE (15:25)
[2018-10-14 15:27] LABS: GLUCOSE 801 MG/DL (70-105)
[2018-10-14] MEDS ORDERED: NS IV 1000 ML 1,000 ML IV SCH ×2 (15:30→16:15)
--- NOTE | 2018-10-14 15:30 | NUR ---
Edu roberts in ED - 10/14/18 at 1533 by [id number] Called for report to floor. Nurse unable to take pt at this time. Nurse to return call.
--- NOTE | 2018-10-14 15:30 | NUR ---
Edu roberts in [facility] - 10/14/18 at 1533 by [id number] Sean in room at this time.
--- NOTE | 2018-10-14 15:33 | Diagnostic Imaging Report ---
INDICATION: Shortness of breath. Portable chest 03:16 p.m. FINDINGS: Heart size and pulmonary vascularity are normal. Lungs are clear. There are no effusions or pneumothoraces. IMPRESSION: Negative chest. Dictated by: Dictated on workstation # [id number]
[2018-10-14] MEDS ORDERED: inSUlin (REGULAR) HUMAN 1 UNIT/0.01 ML (CHARGE PER UNIT) IV ONE (16:15)
[2018-10-14] MEDS ORDERED: KCL 20 MEQ TAB (K-DUR) PO ONE ×2 (16:30→17:45)
[2018-10-14] MEDS: POTASSIUM CL 10MEQ/50ML IVPB 50 ML IV SCH ×2 (16:50→17:37)
[2018-10-14 16:53] LABS: ABG BASE EXCESS 4.5 MMOL/L (-2.5-2.5); ABG OXYGEN SATURATION 95 % (94-100); ABG PCO2 39 MMHG (35-45); ABG PH 7.47 (7.37-7.43); ABG PO2 74 MMHG (79-93); ABG TCO2 29.3 MMOL/L (21.0-31.0); ALLENS TEST POSITIVE; INSPIRED O2 ROOM AIR; PATIENT TEMP 98.5; VENTILATOR NO
[2018-10-14 17:06] LABS: BILIRUBIN,URINE NEGATIVE (NEGATIVE); CLARITY,URINE CLEAR; COLOR,URINE YELLOW; GLUCOSE, URINE (UA) 4+ (NEGATIVE); KETONES,URINE NEGATIVE (NEGATIVE); LEUKOCYTE ESTERASE ,URINE NEGATIVE (NEGATIVE); NITRITE,URINE NEGATIVE (NEGATIVE); PH,URINE 6 (5-9); PROTEIN,URINE NEGATIVE (NEGATIVE); UROBILINOGEN,URINE NORMAL (NORMAL)
[2018-10-14] MEDS: NS IV 1000 ML 1,000 ML IV SCH ×2 (17:30→18:01)
[2018-10-14 17:34] LABS: BACTERIA,URINE NEGATIVE /HPF; WBC,URINE RARE /HPF
[2018-10-14] MEDS ORDERED: PANTOPRAZOLE 40 MG (PROTONIX) VIAL IV ONE (19:00)
[2018-10-14 19:08] VITALS: BP 145/94
--- NOTE | 2018-10-14 19:24 | NUR ---
FSBS [id number]
== END 2018-10-14 19:38 | disposition short-term general hospital (02) ==
LOC: EDUNIT# 14:18 → ER 14:19
DX: N28.9 Disorder of kidney and ureter, unspecified (principal); E11.9 Type 2 diabetes mellitus without complications; E87.6 Hypokalemia; E66.9 Obesity, unspecified; G47.30 Sleep apnea, unspecified; E78.00 Pure hypercholesterolemia, unspecified; I10 Essential (primary) hypertension; K21.9 Gastro-esophageal reflux disease without esophagitis; M06.9 Rheumatoid arthritis, unspecified; M10.9 Gout, unspecified; M32.9 Systemic lupus erythematosus, unspecified; F32.9 Major depressive disorder, single episode, unspecified; Z88.0 Allergy status to penicillin; Z80.0 Family history of malignant neoplasm of digestive organs; Z68.41 Body mass index [BMI] 40.0-44.9, adult; Z99.81 Dependence on supplemental oxygen; Z79.82 Long term (current) use of aspirin; Z79.84 Long term (current) use of oral hypoglycemic drugs; Z87.891 Personal history of nicotine dependence
CPT/HCPCS: 36415; 36600; 71045; 80053; 81000; 82010; 82805; 82962; 83605; 83735; 83880; 84132; 84484; 85025; 85610; 85730; 93005; 93041

== ENCOUNTER 2018-11-16 14:54 | Emergency (ER) | payer MEDICARE ==
[~2018-11-16] VITALS: Ht 177.8 cm; Wt 129.1 kg
[2018-11-16 15:25] VITALS: BP_SYST 120; BP_SYST 124; BP_SYST 131; BP_DIAS 92; BP_DIAS 93; BP_DIAS 94
--- NOTE | 2018-11-16 15:25 | NUR ---
PT BROUGHT TO EXAM ROOM, PT STATES THAT HE HAS BEEN GETTING DIZZY, LIGHT HEADED, AND WINDED WITH ANY ACTIVITY, PT DENIES ANY SYMPTOMS WHILE RESTING
[2018-11-16] MEDS ORDERED: NS IV 1000 ML 1,000 ML IV ONE (15:44)
[2018-11-16 15:49] LABS: BASOPHILS % (AUTO) 0 % (0-10); EOSINOPHILS # (AUTO) 0.1 10^3/uL (0.0-0.3); EOSINOPHILS % (AUTO) 1 % (0-10); HEMATOCRIT 38 % (40-54); HEMOGLOBIN 12.7 G/DL (13.3-17.7); LYMPHOCYTES # (AUTO) 4.3 X 10^3 (1.0-4.0); LYMPHOCYTES % (AUTO) 30 % (12-44); MEAN CORPUSCULAR HEMOGLOBIN 24 PG (25-34); MEAN CORPUSCULAR HGB CONC 33 G/DL (32-36); MEAN CORPUSCULAR VOLUME 73 FL (80-99); MEAN PLATELET VOLUME 9.8 FL (7.4-10.4); MONOCYTES # (AUTO) 1.1 X 10^3 (0.0-1.0); MONOCYTES % (AUTO) 8 % (0-12); NEUTROPHILS % (AUTO) 62 % (42-75); PLATELET COUNT 469 10^3/uL (130-400); RED CELL DISTRIBUTION WIDTH 15.1 % (10.0-14.5); WHITE BLOOD COUNT 14.5 10^3/uL (4.3-11.0)
[2018-11-16 16:00] LABS: BILIRUBIN,URINE NEGATIVE (NEGATIVE); CLARITY,URINE CLEAR; COLOR,URINE YELLOW; GLUCOSE, URINE (UA) NEGATIVE (NEGATIVE); KETONES,URINE NEGATIVE (NEGATIVE); LEUKOCYTE ESTERASE ,URINE NEGATIVE (NEGATIVE); NITRITE,URINE NEGATIVE (NEGATIVE); PH,URINE 6 (5-9); PROTEIN,URINE 2+ (NEGATIVE); UROBILINOGEN,URINE NORMAL (NORMAL)
[2018-11-16 16:09] LABS: BACTERIA,URINE NEGATIVE /HPF; WBC,URINE RARE /HPF
[2018-11-16 16:10] LABS: ALANINE AMINOTRANSFERASE 18 U/L (0-55); ALBUMIN 4.4 GM/DL (3.2-4.5); ALKALINE PHOSPHATASE 78 U/L (40-136); BILIRUBIN,TOTAL 1.1 MG/DL (0.1-1.0); BUN/CREATININE RATIO 12; CALCIUM 10.3 MG/DL (8.5-10.1); CARBON DIOXIDE 23 MMOL/L (21-32); CHLORIDE 99 MMOL/L (98-107); CREATININE SERUM 1.33 MG/DL (0.60-1.30); GFR ESTIMATED > 60; GLUCOSE 127 MG/DL (70-105); MAGNESIUM 1.6 MG/DL (1.8-2.4); SODIUM 140 MMOL/L (135-145); TOTAL PROTEIN 7.8 GM/DL (6.4-8.2)
[2018-11-16 16:16] LABS: BAND NEUTROPHILS 0 %; EOSINOPHILS % (MANUAL) 2 %; LYMPHOCYTES % (MANUAL) 39 %; MONOCYTES % (MANUAL) 6 %; NEUTROPHILS % (MANUAL) 53 %; RBC MORPH NORMAL
--- NOTE | 2018-11-16 16:20 | NUR ---
PT SITTING IN ED BED QUIETLY, PT DENIES ANY NEEDS OR C/O AT THIS TIME, PT SHOWS NO S/S OF DISTRESS, VS ASSESSED AND STABLE, WILL CONTINUE TO MONITOR
--- NOTE | 2018-11-16 16:35 | Diagnostic Imaging Report ---
INDICATION: Leg pain and dyspnea on exertion. COMPARISON is made to prior examination of 10/14/2018. FINDINGS: Heart size is normal. There is elevation of the right hemidiaphragm. The lungs are clear. There is no pneumothorax. Mediastinum is unremarkable. IMPRESSION: No acute cardiopulmonary abnormality. Dictated by: Dictated on workstation # [id number]
--- NOTE | 2018-11-16 16:42 | ED General ---
General Chief Complaint: Dizziness/Syncope Stated Complaint: DIZZINESS,WEAKNESS Nursing Triage Note: PT STATES HE STARTED HAVING DIZZIENESS YESTERDAY. PT STATES BILATERAL LEG PAIN AND HE DYSPNEA ON EXERTION. PT HISTORY OF GOUT AND DIABETES. PT DENIES N/V/D/FEVER. PT DENIES SYNCOPE EPISODE. Nursing Sepsis Screen: No Definite Risk Source of Information: Patient Exam Limitations: No Limitations History of Present Illness Date Seen by Provider: November 16, 2018 Time Seen by Provider: 15:59 Initial Comments Here with report of dizziness yesterday. Also has some shortness of air when walking distances. He is concerned he is dehydrated. Denies chest pain, nausea, vomiting, fever or other concerns. Does have history of diabetes and can get quite uncontrolled at times. Reports that he's been doing well with that recently. Timing/Duration: 12-24 Hours Severity: Mild Modifying Factors: improves with Rest Associated Systoms: No Chest Pain, No Cough, No Fever/Chills, No N ausea/Vomiting; Shortness of Air; No Weakness Allergies and Home Medications Allergies Coded Allergies: Penicillins (Verified Allergy, Unknown, 01/31/16) Home Medications Aripiprazole 15 Mg Tablet, 15 MG PO DAILY, (Reported) Aspirin 81 Mg Tablet.dr, 81 MG PO DAILY Prescribed by: YAEL SHEEHAN on 06/17/18 1249 Colchicine 0.6 Mg Tablet, 0.6 MG PO BID PRN for GOUT FLARE, (Reported) Febuxostat 80 Mg Tablet, 80 MG PO DAILY, (Reported) Ibuprofen 800 Mg Tablet, 800 MG PO TID PRN for PAIN-MILD, (Reported) Lisinopril 10 Mg Tablet, 10 MG PO DAILY, (Reported) Mag Hydrox/Al Hydrox/Simeth 30 Ml Oral.susp, 30 ML PO HS PRN for INDIGESTION, (Reported) Magnesium Oxide 400 Mg Tablet, 400 MG PO BIDPC Prescribed by: YAEL SHEEHAN on 06/17/18 1249 Metformin HCl 500 Mg Tablet, 500 MG PO BID, (Reported) Potassium Chloride 10 Meq Tablet.er, 10 MEQ PO TIDWM Prescribed by: YAEL SHEEHAN on 06/17/18 1249 Pravastatin Sodium 10 Mg Tablet, 10 MG PO HS, (Reported) Patient Home Medication List Home Medication List Reviewed: Yes Review of Systems Review of Systems Constitutional: see HPI; No chills; dizziness; No fever EENTM: no symptoms reported Respiratory: see HPI Cardiovascular: no symptoms reported Gastrointestinal: no symptoms reported Skin: no symptoms reported All Other Systems Reviewed Negative Unless Noted: Yes Past Wygwecx-Jsxnjz-Srreux Hx Patient Social History Alcohol Use: Denies Use Number of Drinks Today: AA Alcohol Beverage of Choice: Beer Recreational Drug Use: No Type Used: Cigarettes, Smokeless Tobacco Former Smoker, Quit: Jan 19, 1990 Recent Foreign Travel: No Contact w/Someone Who Travel: No Recent Infectious Disease Expo: No Recent Hopitalizations: No Immunizations Up To Date Tetanus Booster (TDap): Unknown Date of Pneumonia Vaccine: Aug 08, 2013 Seasonal Allergies Seasonal Allergies: No Past Medical History Surgeries: Yes Gallbladder, Tonsillectomy Respiratory: Yes (SLEEP APNEA) Sleep Apnea Currently Using CPAP: Yes Currently Using BIPAP: No Cardiac: Yes High Cholesterol, Hypertension Neurological: No Reproductive Disorders: No Sexually Transmitted Disease: No HIV/AIDS: No Genitourinary: No Gastrointestinal: No Gastroesophageal Reflux Musculoskeletal: Yes Arthritis, Rheumatoid Arthritis, Gout Endocrine: Yes Diabetes, Non-Insulin dep, Lupus HEENT: No Cancer: No Psychosocial: Yes (History of psychosis) Depression Integumentary: No Blood Disorders: No Family Medical History Diabetes mellitus 19 MOTHER PATERNAL GRANDFATHER Neoplasm 19 FATHER (THROAT CANCER-SMOKER) No Pertinent Family Hx Physical Exam Vital Signs Vital Signs - First Documented 11/16/18 15:07 Temp 98.8 Pulse 102 Resp 18 B/P (MAP) 153/102 (119) Pulse Ox 97 O2 Delivery Room Air Capillary Refill : Less Than 3 Seconds Height, Weight, BMI Height: 5'10.00" Weight: 284lbs. 9.6oz. 129.351779yv; 43.8 BMI Method:Stated General Appearance: No Apparent Distress, WD/WN HEENT: PERRL/EOMI, Pharynx Normal Neck: Non Tender, Supple Respiratory: Lungs Clear, Normal Breath Sounds Cardiovascular: No Murmur, Tachycardia Back: Normal Inspection, No CVA Tenderness, No Vertebral Tenderness Extremity: Normal Inspection, Normal Range of Motion, Non Tender, No Calf Tenderness Neurologic/Psychiatric: Alert, Oriented x3, No Motor/Sensory Deficits Skin: Normal Color, Warm/Dry Progress/Results/Core Measures Suspected Sepsis Recent Fever Within 48 Hours: No Infection Criteria Present: None New/Unexplained Altered Menta: No Sepsis Screen: No Definite Risk SIRS Temperature:98.8 Pulse: 119 Respiratory Rate: 18 Laboratory Tests 11/16/18 15:20: White Blood Count 14.5H Blood Pressure 120 /93 Mean: 102 Laboratory Tests 11/16/18 15:20: Creatinine 1.33H, Platelet Count 469H, Total Bilirubin 1.1H Results/Orders Lab Results Laboratory Tests Test 11/16/18 15:19 11/16/18 15:20 11/16/18 15:55 Range/Units Glucometer 122 H 70-110 MG/DL White Blood Count 14.5 H 4.3-11.0 10^3/uL Red Blood Count 5.26 4.35-5.85 10^6/uL Hemoglobin 12.7 L 13.3-17.7 G/DL Hematocrit 38 L 40-54 % Mean Corpuscular Volume 73 L 80-99 FL Mean Corpuscular Hemoglobin 24 L 25-34 PG Mean Corpuscular Hemoglobin Concent 33 32-36 G/DL Red Cell Distribution Width 15.1 H 10.0-14.5 % Platelet Count 469 H 130-400 10^3/uL Mean Platelet Volume 9.8 7.4-10.4 FL Neutrophils (%) (Auto) 62 42-75 % Lymphocytes (%) (Auto) 30 12-44 % Monocytes (%) (Auto) 8 0-12 % Eosinophils (%) (Auto) 1 0-10 % Basophils (%) (Auto) 0 0-10 % Neutrophils # (Auto) 9.0 H 1.8-7.8 X 10^3 Lymphocytes # (Auto) 4.3 H 1.0-4.0 X 10^3 Monocytes # (Auto) 1.1 H 0.0-1.0 X 10^3 Eosinophils # (Auto) 0.1 0.0-0.3 10^3/uL Basophils # (Auto) 0.0 0.0-0.1 10^3/uL Neutrophils % (Manual) 53 % Lymphocytes % (Manual) 39 % Monocytes % (Manual) 6 % Eosinophils % (Manual) 2 % Band Neutrophils 0 % Blood Morphology Comment NORMAL Sodium Level 140 135-145 MMOL/L Potassium Level 3.0 L 3.6-5.0 MMOL/L Chloride Level 99 98-107 MMOL/L Carbon Dioxide Level 23 21-32 MMOL/L Anion Gap 18 H 5-14 MMOL/L Blood Urea Nitrogen 16 7-18 MG/DL Creatinine 1.33 H 0.60-1.30 MG/DL Estimat Glomerular Filtration Rate > 60 BUN/Creatinine Ratio 12 Glucose Level 127 H 70-105 MG/DL Calcium Level 10.3 H 8.5-10.1 MG/DL Corrected Calcium 10.0 8.5-10.1 MG/DL Magnesium Level 1.6 L 1.8-2.4 MG/DL Total Bilirubin 1.1 H 0.1-1.0 MG/DL Aspartate Amino Transf (AST/SGOT) 12 5-34 U/L Alanine Aminotransferase (ALT/SGPT) 18 0-55 U/L Alkaline Phosphatase 78 40-136 U/L C-Reactive Protein High Sensitivity 1.77 H 0.00-0.50 MG/DL Total Protein 7.8 6.4-8.2 GM/DL Albumin 4.4 3.2-4.5 GM/DL Urine Color YELLOW Urine Clarity CLEAR Urine pH 6 5-9 Urine Specific [place] 1.015 L 1.016-1.022 Urine Protein 2+ H NEGATIVE Urine Glucose (UA) NEGATIVE NEGATIVE Urine Ketones NEGATIVE NEGATIVE Urine Nitrite NEGATIVE NEGATIVE Urine Bilirubin NEGATIVE NEGATIVE Urine Urobilinogen NORMAL NORMAL MG/DL Urine Leukocyte Esterase NEGATIVE NEGATIVE Urine RBC (Auto) NEGATIVE NEGATIVE Urine RBC NONE /HPF Urine WBC RARE /HPF Urine Squamous Epithelial Cells NONE /HPF Urine Crystals NONE /LPF Urine Bacteria NEGATIVE /HPF Urine Casts NONE /LPF Urine Mucus NEGATIVE /LPF Urine Culture Indicated NO My Orders Orders - WHITNEY CUNNINGHAM MD Cbc With Automated Diff (11/16/18 15:44) Comprehensive Metabolic Panel (11/16/18 15:44) Hs C Reactive Protein (11/16/18 15:44) Magnesium (11/16/18 15:44) Ua Culture If Indicated (11/16/18 15:44) Ed Iv/Invasive Line Start (11/16/18 15:44) Ns Iv 1000 Ml (Sodium Chloride 0.9%) (11/16/18 15:44) Manual Differential (11/16/18 15:20) Chest Pa/Lat (2 View) (11/16/18 16:22) Ed Iv/Invasive Line Start (11/16/18 16:54) Lactated Ringers (Lr 1000 Ml Iv Solution (11/16/18 16:54) Potassium Chloride (Tablet) (Klor Con Ta (11/16/18 17:45) Medications Given in ED Current Medications Medications Dose Ordered Sig/Rosa M Route Start Time Stop Time Status Last Admin Dose Admin Lactated Ringer's 1,000 ml @ 0 mls/hr Q0M ONCE IV 11/16/18 16:54 11/16/18 16:55 DC 11/16/18 17:00 0 MLS/HR Potassium Chloride 40 meq ONCE ONCE PO 11/16/18 17:45 11/16/18 17:46 DC 11/16/18 17:38 40 MEQ Sodium Chloride 1,000 ml @ 0 mls/hr Q0M ONCE IV 11/16/18 15:44 11/16/18 15:45 DC 11/16/18 15:56 0 MLS/HR Vital Signs/I&O 11/16/18 11/16/18 15:07 15:25 Temp 98.8 Pulse 102 100 105 119 Resp 18 B/P (MAP) 153/102 (119) 131/94 (106) 124/92 (103) 120/93 (102) Pulse Ox 97 O2 Delivery Room Air Capillary Refill : Less Than 3 Seconds Blood Pressure Mean: 102 Progress Note : Progress Note Seen and evaluated. IV, labs, UA and chest x-ray ordered. Normal saline 1 L bolus. Patient was able walk to the bathroom without difficulty or abnormal gait. He states that he is feeling better as fluids are going on. He was orthostatic positive. 1648: Heart rate 92. Chest x-ray negative. Monitor patient. 1745: Repeat fluids bolus with LR 1 L and was given potassium 40 mg by mouth. Overall feels much better now. Discharged home with return precautions. Patient verbalize understanding instructions and agreement with plan. Diagnostic Imaging Diagonstic Imaging: Xray Plain Films/CT/US/NM/MRI: chest Comments [facility] [place] NAME: JAZLYN BARRIGA [facility] REC#: [id number] PT STATUS: REG ER : 1965 PHYSICIAN: WHITNEY CUNNINGHAM MD ADMIT DATE: 11/16/18/ER Draft Date of Exam:11/16/18 CHEST PA/LAT (2 VIEW) INDICATION: Leg pain and dyspnea on exertion. COMPARISON is made to prior examination of 10/14/2018. FINDINGS: Heart size is normal. There is elevation of the right hemidiaphragm. The lungs are clear. There is no pneumothorax. Mediastinum is unremarkable. IMPRESSION: No acute cardiopulmonary abnormality. Dictated on workstation # [id number] Dict: 11/16/18 1632 Trans: 11/16/18 1636 [facility] [id number] Interpreted by: MARTY NAIR MD Electronically signed by: Departure Impression Primary Impression: Dehydration Additional Impression: Dizziness Disposition: 01 HOME, SELF-CARE Condition: Improved Departure-Patient Inst. Decision time for Depature: 18:08 Referrals: EDGARDO BATES MD (PCP/Family) Primary Care Physician Patient Instructions: Dehydration, Adult (DC), Dizziness, Nonvertigo, (DC) Add. Discharge Instructions: All discharge instructions reviewed with patient and/or family. Voiced understanding. Continue home medications as previously prescribed. Drink plenty of fluids. Follow-up with your DrRaymon in a few days for recheck. You need to talk to your doctor about the repeat CT scan of the chest needed for your thyroid evaluation. Return for worsening, fever, vomiting, weakness, breathing problems or other concerns as needed. WHITNEY CUNNINGHAM MD November 16, 2018 16:42
[2018-11-16] MEDS ORDERED: LACTATED RINGERS 1,000 ML IV ONE (16:54)
--- NOTE | 2018-11-16 17:20 | NUR ---
PT STATES HE IS FEELING BETTER, PT SITTING QUIETLY IN BED, PT POLITE WITH STAFF, PT DENIES ANY NEEDS OR C/O, PT SHOWS NO S/S OF DISTRESS, VS ASSESSED AND STABLE, WILL CONTINUE TO MONITOR
[2018-11-16] MEDS ORDERED: KCL 10 MEQ TAB (MICRO K) PO ONE (17:45)
[2018-11-16 18:12] VITALS: BP 147/107
== END 2018-11-16 18:18 | disposition home or self-care (01) ==
LOC: EDUNIT# 14:54 → ER 14:55
DX: E86.0 Dehydration (principal); R42 Dizziness and giddiness; G47.30 Sleep apnea, unspecified; E78.00 Pure hypercholesterolemia, unspecified; I10 Essential (primary) hypertension; K21.9 Gastro-esophageal reflux disease without esophagitis; M06.9 Rheumatoid arthritis, unspecified; M10.9 Gout, unspecified; F32.9 Major depressive disorder, single episode, unspecified; M32.9 Systemic lupus erythematosus, unspecified; E11.9 Type 2 diabetes mellitus without complications; Z88.0 Allergy status to penicillin; Z79.82 Long term (current) use of aspirin; Z79.84 Long term (current) use of oral hypoglycemic drugs; Z87.891 Personal history of nicotine dependence; Z90.89 Acquired absence of other organs; Z80.0 Family history of malignant neoplasm of digestive organs
CPT/HCPCS: 36415; 71046; 80053; 81000; 82962; 83735; 85007; 85027; 86141; 96360

== ENCOUNTER 2018-12-27 20:49 | Observation (INO) | payer MEDICARE | END 2018-12-29 13:20 | disposition home or self-care (01) | LOC: ICU 12-28 01:24 → ER 20:49 → ICU 12-28 05:45 ==

== ENCOUNTER 2019-02-06 19:19 | Emergency (ER) | payer MEDICARE ==
[~2019-02-06] VITALS: Ht 177.8 cm; Wt 127.0 kg
[~2019-02-06 19:19] MED LIST changes: +ESCI10TA55 PO; +IBUP-1780 PO; +MAGN400T39 PO; +METO-352 PO; -OMEP20CA12 PO; +OMEP20CA13 PO; +POTA10CA43 PO
--- NOTE | 2019-02-06 20:15 | Diagnostic Imaging Report ---
INDICATION: Left leg pain COMPARISON: None FINDINGS: Multiple views of the left femur demonstrate moderate to severe degenerative changes of the left hip. Moderate degenerative changes seen of the left knee. There is no fracture, dislocation or osseous lesion. There is no joint effusion. There is likely chronic metallic foreign body lateral posterior aspect to the popliteal fossa. IMPRESSION: 1. Degenerative joint disease without fracture. 2. Chronic metallic foreign body. Dictated by: Dictated on workstation # [id number]
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
[2019-02-06] MEDS ORDERED: CYCL10TA9 PO (20:35)
[2019-02-06] MEDS ORDERED: RX-CYCLOBENZAPRINE 10 MG (FLEXERIL) TAB PPK#3 PO STA (20:35)
[2019-02-06 20:44] VITALS: BP 139/96
== END 2019-02-06 20:44 | disposition home or self-care (01) ==
LOC: EDUNIT# 19:19 → ER 19:20
DX: M79.652 Pain in left thigh (principal); I12.9 Hypertensive chronic kidney disease with stage 1 through stage 4 chronic kidney disease, or unspecified chronic kidney disease; N18.9 Chronic kidney disease, unspecified; E11.22 Type 2 diabetes mellitus with diabetic chronic kidney disease; M06.9 Rheumatoid arthritis, unspecified; K21.0 Gastro-esophageal reflux disease with esophagitis; G47.30 Sleep apnea, unspecified; E78.00 Pure hypercholesterolemia, unspecified; E66.9 Obesity, unspecified; F41.9 Anxiety disorder, unspecified; F32.9 Major depressive disorder, single episode, unspecified; Z68.41 Body mass index [BMI] 40.0-44.9, adult; Z88.0 Allergy status to penicillin; Z79.82 Long term (current) use of aspirin; Z79.84 Long term (current) use of oral hypoglycemic drugs; Z87.891 Personal history of nicotine dependence; Z90.89 Acquired absence of other organs; Z80.8 Family history of malignant neoplasm of other organs or systems
CPT/HCPCS: 73552

== ENCOUNTER → 2019-02-16 | Outpatient (CLI) | payer MEDICARE ==
[~2019-02-16] MED LIST changes: +CATHETER FLUSH 10 ML SYR IV PRN; +REGADENOSON 0.4 MG/5 ML SYR (LEXISCAN) IV ONE
[2019-02-16 09:36] VITALS: BP 167/103
[2019-02-16 09:39] VITALS: BP 147/102
--- NOTE | 2019-02-17 11:02 | STRESS TEST ---
DATE OF SERVICE: 02/16/2019 RESTING AND POST REGADENOSON TECHNETIUM-99M TETROFOSMIN SPECT CT IMAGING ORDERING PHYSICIAN: Dr. Pedroza. PRIMARY PHYSICIAN: Dr. Jones. CLINICAL DIAGNOSES: Chest discomfort, shortness of breath. Baseline images were carried out after injection of 10.67 mCi of technetium-99m Tetrofosmin. This was followed by 0.4 mg regadenoson and 29.2 mCi of technetium-99m Tetrofosmin for stress imaging. The electrocardiogram showed sinus rhythm at baseline. The electrocardiogram did not change significantly with regadenoson infusion. Review of images at rest and following stress show a small transient basal inferior perfusion defect that appears transient. Gated images show normal global left ventricular systolic function with normal regional wall motion. Left ventricular ejection fraction is calculated to be 62%. Left ventricular end diastolic volume is 55 mL. TID is absent (1.01). CONCLUSIONS: 1. This study is indicative of a small amount of basal inferior ischemia. 2. Normal regional wall motion. 3. Normal global left ventricular systolic function with a calculated ejection fraction of 62%. Normal left ventricular cavity size. Job ID: [id number] DocumentID: [id number] Dictated Date: 02/17/2019 09:57:14 Tool Sharpener Date: 02/17/2019 11:01:14 Dictated By: REY PEDROZA MD, MA, FACP, FACC,
== END ==
LOC: CARD 07:47
PROVIDERS: ATTEND Internal Medicine Cardiovascular Disease
DX: I99.8 Other disorder of circulatory system (principal); I10 Essential (primary) hypertension; E11.9 Type 2 diabetes mellitus without complications
CPT/HCPCS: 78452; 93017

== ENCOUNTER 2019-03-09 08:48 | Day surgery (SDC) | payer MEDICARE ==
[2019-03-09] VITALS (10 sets, daily range): BP systolic 120–146; BP diastolic 83–96
[~2019-03-09] VITALS: Ht 177 cm; Wt 127.0 kg
[~2019-03-09 08:48] MED LIST changes: -CATHETER FLUSH 10 ML SYR IV PRN; -REGADENOSON 0.4 MG/5 ML SYR (LEXISCAN) IV ONE
[2019-03-09] MEDS ORDERED: HEParin (CATH LAB) 2,000 ML IV ONE (08:49)
[2019-03-09] MEDS ORDERED: NS IV 1000 ML 1,000 ML ONE (08:49)
[2019-03-09] MEDS ORDERED: LIDOCAINE 1% INJ 20 ML 20 ML VIAL ONE (08:49)
[2019-03-09] MEDS ORDERED: NS IV 1000 ML 1,000 ML IV SCH ×2 (08:55→14:02)
[2019-03-09 09:22] LABS: HEMOGLOBIN 12.8 G/DL (13.3-17.7); MEAN PLATELET VOLUME 9.4 FL (7.4-10.4); RED CELL DISTRIBUTION WIDTH 14.5 % (10.0-14.5); WHITE BLOOD COUNT 13.4 10^3/uL (4.3-11.0)
[2019-03-09 09:40] LABS: PROTHROMBIN TIME PATIENT 13.4 SEC (12.2-14.7)
[2019-03-09 09:46] LABS: ALANINE AMINOTRANSFERASE 11 U/L (0-55); ALBUMIN 4.1 GM/DL (3.2-4.5); ALKALINE PHOSPHATASE 92 U/L (40-136); BILIRUBIN,TOTAL 1.3 MG/DL (0.1-1.0); BUN/CREATININE RATIO 9; CALCIUM 10.1 MG/DL (8.5-10.1); CARBON DIOXIDE 24 MMOL/L (21-32); CHLORIDE 101 MMOL/L (98-107); CHOLESTEROL 198 MG/DL (< 200); CREATININE SERUM 1.33 MG/DL (0.60-1.30); GFR ESTIMATED > 60; GLUCOSE 149 MG/DL (70-105); HDL CHOLESTEROL 59 MG/DL (40-60); POTASSIUM 3.2 MMOL/L (3.6-5.0); SODIUM 140 MMOL/L (135-145); TRIGLYCERIDES 103 MG/DL (<150); VLDL CHOLESTEROL 21 MG/DL (5-40)
[2019-03-09] MEDS ORDERED: IBUP-1780 PO (10:25)
[2019-03-09] MEDS ORDERED: POTA10TA10 PO (10:26)
[2019-03-09] MEDS ORDERED: ASPI-906 PO (10:27)
[2019-03-09] MEDS ORDERED: PRD20T PO (10:40)
--- NOTE | 2019-03-09 10:41 | NUR ---
Spoke to patient he brought in some of his medications bottles. Metformin 500mg BID bottle filled 04-15-18 Rx stated filled 10/19/18 Ibuprofen 800mg TID 11/02/18 Prednisone 20 Daily 11/02/18 Uloric 80mg Daily 06/25/18 Potassium 10meg BID 01/27/19 States he takes but no bottles Lisinopril 10mg 07/23/18 Aspirin 81mg chew Aripiprazole 15mg 06/25/18 Colchicine 0.6mg BID PRN Gout pain Did not state he took but pharmacy filled Metoprolol ER 50mg Daily filled 02/14/19 #90
[2019-03-09] MEDS ORDERED: MIDAZOLAM 5 MG/5 ML (VERSED) VIAL ONE (13:06)
[2019-03-09] MEDS ORDERED: fentaNYL INJECTION 100 MCG/2 ML AMP ONE (13:06)
--- NOTE | 2019-03-09 14:02 | Cardiac Procedure Note-CS/ASA ---
Pre-Procedure Note Pre-Op Procedure Note H&P Reviewed The H&P was reviewed, patient examined and no changes noted. Date H&P Reviewed: Mar 09, 2019 Time H&P Reviewed: 14:02 Conscious Sedation Pre-Proced Time 14:02 ASA Score 3 For ASA 3 and 4: Consider anesthesia and medical clearance. Also, for patients with a history of failed moderate sedation consider anesthesia. Airway Lungs Heart ASA score ASA 1: a normal healthy patient ASA 2: a patient with a mild systemic disease (mid diabetes, controlled hypertension, obesity ASA 3: a patient with a severe systemic disease that limits activity (angina, COPD, prior Myocardial infarction) ASA 4: a patient with an incapacitating disease that is a constant threat to life (CHF, renal failure) ASA 5: a moribund patient not expected to survive 24 hrs. (ruptured aneurysm) ASA 6: a declared brain- patient whose organs are being harvested. For emergent operations, add the letter E after the classification Mallampati Classification Grade 2 Sedation Plan Analgesia, Amnesia, Plan communicated to team members, Discussed options with patient/fam, Discussed risks with patient/fam The patient is an appropriate candidate to undergo the planned procedure, sedation, and anesthesia. The patient immediately re-assessed prior to indication. REY PERERA MD FACP FAC CCDS Mar 09, 2019 14:02
--- NOTE | 2019-03-09 14:07 | Discharge Inst-Cardiology ---
Discharge Inst-Cardiac Problems Reviewed?: Yes Discharge Medications Continued Medications: Aripiprazole (Aripiprazole) 15 Mg Tablet 15 MG PO DAILY, TAB LAST FILLED #90 06-25-18 Aspirin (Shantel Chewable Aspirin) 81 Mg Tab.chew 81 MG PO DAILY, TAB Colchicine (Colchicine) 0.6 Mg Tablet 0.6 MG PO BID PRN for GOUT FLARE, TAB Febuxostat (Uloric) 80 Mg Tablet 80 MG PO DAILY, TAB LAST FILLED #90 07-02-18 Lisinopril (Lisinopril) 10 Mg Tablet 10 MG PO DAILY, TAB LAST FILLED #30 07-23-18 Potassium Chloride (Potassium Chloride) 10 Meq Tablet.er 10 MEQ PO BID, TAB Prednisone (Prednisone) 20 Mg Tab 20 MG PO DAILY, #11 TAB Take 3 tabs(60mg)daily, decrease by 1/2 tab(10mg)daily. Discontinued Medications: Ibuprofen (Ibuprofen) 800 Mg Tablet 800 MG PO TID PRN for PAIN-MILD, TAB Metformin HCl (Metformin HCl) 500 Mg Tablet 500 MG PO BID, TAB Patient Instructions Patient Instructions: HOLD METFORMIN UNTIL THE MORNING OF 03/12/19. THEN RESUME PREVIOUS HOME DOSE Orders-Post D/C & Referrals Pneu Vac Indicated: Yes REY PERERA MD FACP FAC CCDS Mar 09, 2019 14:07
--- NOTE | 2019-03-09 14:08 | Discharge Inst-Post CATH ---
Discharge Inst-CATH/EP Post Cardiac Cath/EP D/C Inst Follow Up/Plan F/u with Dr Pedroza in 2 weeks ACTIVITY * Go Home directly and rest. * Limit activity of the leg (or wrist if it was used) for 7 days including aerobics, swimming, jogging, bicycling, etc. * Restrict stair-climbing for 7 days if possible, if not, climb up with your n on-cath leg, then bring together on the same step. * Avoid lifting, pushing, pulling or excessive movement of the affected ex tremity for 7 days. * Customary sexual activity may be resumed after 2 days-use caution not to use a position that strains or causes pain to the affected extremity. * No driving for 24 hours. * NO SMOKING. * Avoid straining for bowel movements for 7 days. * Gentle walking on level ground is allowed. * Returning to work will depend on the type of procedure and the results. Your doctor will discuss this with you. CALL YOUR DOCTOR FOR ANY OF THE FOLLOWING: *If bleeding from the puncture site occurs- Apply gentle pressure to site with clean cloth and call your doctor or EMS. * If a knot or lump forms under the skin, increases in size, or causes pain. * If bruising appears to be worsening or moving further down your leg instead of disappearing. * Temperature above 101 F. CARE OF YOUR GROIN INCISION; * Bruising or purple discoloration of the skin near the puncture site is common. * You may shower only, no bathtub bathing for 5 days. Be careful to avoid slipping as your leg may feel stiff. * If a closure device was used on your femoral artery, please see the attached guide regarding care of the device and your leg. * Leave dressing on FOR 24 hours. CARE OF YOUR WRIST INCISION; * Bruising or purple discoloration of the skin near the puncture site is common. * You may shower. * DO NOT submerge wrist. * Leave dressing on FOR 24 hours. REY PEDROZA MD FACP FAC CCDS Mar 09, 2019 14:08
[2019-03-09] MEDS ORDERED: KCL 20 MEQ TAB (K-DUR) PO ONE (14:15)
[2019-03-09] MEDS ORDERED: PATIENT MAY USE OWN MEDS, ALL PO SCH (14:15)
--- NOTE | 2019-03-09 14:43 | CARDIAC CATHETERIZATION ---
DATE OF SERVICE: 03/09/2019 CARDIAC CATHETERIZATION REPORT The patient is a 53-year-old man with multiple coronary artery disease risk factors, including diabetes, who has had chest pain. Cardiac catheterization was carried out today after having obtained an informed consent and because of suspicion of new onset of angina pectoris. Vigorous perioperative hydration was carried out before, during, and after the procedure. This is because of his chronic kidney disease stage III. Vigorous perioperative hydration was given to reduce risk of contrast nephropathy. Informed consent had been obtained for the procedure. PROCEDURE: He was brought to the cardiac catheterization laboratory. Right groin was prepared and draped in the usual sterile fashion. Lidocaine 1% was used for local anesthesia. Modified Seldinger technique was used to advance a 5-Tuvaluan sheath in right femoral artery. A 5-Tuvaluan JL4 catheter for left coronary angiography, 5-Tuvaluan JR4 catheter was used for right coronary angiography, 5-Tuvaluan pigtail catheter was used for left heart catheterization and left ventricular angiography. Angiography of the right femoral artery was carried out through the sheath. Mynx was used to achieve hemostasis following sheath removal. He tolerated the procedure well. HEMODYNAMICS: Left ventricular end-diastolic pressure following coronary angiography was 2 mmHg. There was no significant pressure gradient on pullback across the aortic valve. Ascending aortic pressure was 104/72 with a mean 87 mmHg. CORONARY ANGIOGRAPHY: Left main coronary artery, left anterior descending artery, left circumflex artery, right coronary artery are all mildly ectatic and have somewhat sluggish flow, but exhibit no significant obstructive disease. LEFT VENTRICULAR ANGIOGRAPHY: Left ventricular angiography was carried out in the right anterior oblique projection. Global left ventricular systolic function is normal. No regional wall motion abnormalities seen. Left ventricular ejection fraction approximately 65%. CONCLUSIONS: 1. No angiographically significant coronary artery disease. 2. Normal regional wall motion. 3. Normal global left ventricular systolic function with an ejection fraction approximately 65%. 4. Low left ventricular end-diastolic pressure. DISCUSSION AND RECOMMENDATIONS: Based on the results of this study, it appears appropriate to continue a conservative approach. Risk factor modification is advised. He runs mildly hypokalemic with mild azotemia. Azotemia appears to be prerenal. We have advised discontinuation of diuretics. Close outpatient followup is advised. Risk factor modification was reviewed and discussed. Job ID: [id number] DocumentID: [id number] Dictated Date: 03/09/2019 14:15:15 Clinical Laboratory Medical Director Date: 03/09/2019 14:41:42 Dictated By: REY PERERA MD, MA, FACP, FACC,
== END 2019-03-09 18:25 | disposition home or self-care (01) ==
LOC: CATH 08:48 → SDC 14:24 → CATH 18:25
PROVIDERS: ATTEND Internal Medicine Cardiovascular Disease
DX: I25.10 Atherosclerotic heart disease of native coronary artery without angina pectoris (principal); E11.9 Type 2 diabetes mellitus without complications; R56.9 Unspecified convulsions; N18.2 Chronic kidney disease, stage 2 (mild); M10.9 Gout, unspecified; Z88.0 Allergy status to penicillin; Z90.49 Acquired absence of other specified parts of digestive tract; Z90.89 Acquired absence of other organs; Z87.891 Personal history of nicotine dependence; Z79.82 Long term (current) use of aspirin; Z79.84 Long term (current) use of oral hypoglycemic drugs; Z79.899 Other long term (current) drug therapy; Z83.3 Family history of diabetes mellitus; Z80.9 Family history of malignant neoplasm, unspecified; Z82.49 Family history of ischemic heart disease and other diseases of the circulatory system
CPT/HCPCS: 36415; 80053; 80061; 85027; 85610; 85730; 87081; 93458

== ENCOUNTER 2019-05-11 14:34 | Inpatient (IN) | payer MEDICARE ==
[~2019-05-11] VITALS: Ht 175 cm; Wt 130.9 kg
[~2019-05-11 14:34] MED LIST changes: +ASPI-906 PO
[2019-05-11] MEDS ORDERED: KETOROLAC 30 MG/ML VIAL IVP ONE (15:00)
[2019-05-11] MEDS ORDERED: NS IV 1000 ML 1,000 ML IV SCH (15:00)
[2019-05-11] MEDS ORDERED: oxyCODONE/APAP 5/325MG (PERCOCET 5) TABLET PO ONE (15:00)
--- NOTE | 2019-05-11 15:05 | ED General ---
General Chief Complaint: General Problems/Pain Stated Complaint: SORE FEET Source of Information: Patient Exam Limitations: No Limitations History of Present Illness Date Seen by Provider: May 11, 2019 Time Seen by Provider: 15:02 Initial Comments To ER per EMS from home with reports of joint pain, specifically the ankles or wrists elbows shoulders and neck. He has a history of rheumatoid arthritis and gout. Denies fevers chills or injury. He was on prednisone a few weeks ago. He takes Uloric for the gout. Timing/Duration: 1-2 Days Severity: Moderate Modifying Factors: improves with Medication Associated Systoms: Nausea/Vomiting Allergies and Home Medications Allergies Coded Allergies: Penicillins (Verified Allergy, Unknown, 01/31/16) Home Medications Aripiprazole 15 Mg Tablet, 15 MG PO DAILY, (Reported) LAST FILLED #90 06-25-18 Aspirin 81 Mg Tab.chew, 81 MG PO DAILY, (Reported) Colchicine 0.6 Mg Tablet, 0.6 MG PO BID PRN for GOUT FLARE, (Reported) Febuxostat 80 Mg Tablet, 80 MG PO DAILY, (Reported) LAST FILLED #90 07-02-18 Lisinopril 10 Mg Tablet, 10 MG PO DAILY, (Reported) LAST FILLED #30 07-23-18 Potassium Chloride 10 Meq Tablet.er, 10 MEQ PO BID, (Reported) Prednisone 20 Mg Tab, 20 MG PO DAILY, (Reported) Take 3 tabs(60mg)daily, decrease by 1/2 tab(10mg)daily. Patient Home Medication List Home Medication List Reviewed: Yes Review of Systems Review of Systems Constitutional: see HPI; No chills, No fever EENTM: see HPI Respiratory: no symptoms reported Genitourinary: no symptoms reported Musculoskeletal: see HPI, joint swelling Skin: no symptoms reported Psychiatric/Neurological: No Symptoms Reported Hematologic/Lymphatic: No Symptoms Reported Immunological/Allergic: no symptoms reported Past Iljnaqv-Nwerlp-Hdvjmm Hx Patient Social History Alcohol Beverage of Choice: Beer Type Used: Smokeless Tobacco Former Smoker, Quit: Jan 19, 1990 Recent Hopitalizations: No Immunizations Up To Date Tetanus Booster (TDap): Unknown Date of Pneumonia Vaccine: Aug 08, 2013 Seasonal Allergies Seasonal Allergies: No Past Medical History Surgeries: Yes (EGD) Gallbladder, Tonsillectomy Respiratory: Yes (SLEEP APNEA, USES CPAP) Sleep Apnea Currently Using CPAP: Yes Currently Using BIPAP: No Cardiac: Yes High Cholesterol, Hypertension Neurological: No Reproductive Disorders: No Sexually Transmitted Disease: No HIV/AIDS: No Genitourinary: Yes (CHRONIC RENAL INSUFFICIENCY) Gastrointestinal: Yes Gastroesophageal Reflux, Esophagitis, Ulcer Musculoskeletal: Yes Arthritis, Rheumatoid Arthritis, Fractures, Gout Endocrine: Yes (OBESITY; THYROID NODULE) Diabetes, Non-Insulin dep HEENT: No Cancer: No Psychosocial: Yes Anxiety, Depression Integumentary: No Blood Disorders: No Family Medical History Diabetes mellitus 19 MOTHER PATERNAL GRANDFATHER Neoplasm 19 FATHER (THROAT CANCER-SMOKER) No Pertinent Family Hx Physical Exam Vital Signs Vital Signs - First Documented 05/11/19 14:55 Temp 37.5 Pulse 120 Resp 20 B/P (MAP) 108/74 (85) Pulse Ox 96 O2 Delivery Room Air Capillary Refill : Height, Weight, BMI Height: 5'10.00" Weight: 280lbs. 1.0oz. 127.124443ul; 40.53 BMI Method:Stated General Appearance: No Apparent Distress, WD/WN Eyes: Bilateral Eye Normal Inspection, Bilateral Eye PERRL HEENT: PERRL/EOMI, TMs Normal Respiratory: Lungs Clear, Normal Breath Sounds, No Accessory Muscle Use, No Re spiratory Distress Cardiovascular: Normal Peripheral Pulses, Tachycardia Gastrointestinal: Non Tender, Soft Extremity: Normal Capillary Refill, Normal Inspection, Other (she only significant swelling of the wrist joints, interphalangeal joints of the fingertips,He has rather advanced gouty changes of his joints including gouty tophi of the fingertips, chronic deformity of the interphalangeal joints. Swelling and discomfort of the joints is bilateral/symmetric. There is no one joint that is more tender or swollen than another.) Neurologic/Psychiatric: Alert, Oriented x3, No Motor/Sensory Deficits Skin: Normal Color, Warm/Dry Focused Exam Lactate Level 05/11/19 15:47: Lactic Acid Level 1.86 Lactic Acid Level Laboratory Tests Test 05/11/19 15:47 Lactic Acid Level 1.86 MMOL/L (0.50-2.00) Progress/Results/Core Measures Suspected Sepsis SIRS Temperature: Pulse: Respiratory Rate: Laboratory Tests 05/11/19 15:00: White Blood Count 20.0H Blood Pressure / Mean: 05/11/19 15:47: Lactic Acid Level 1.86 Laboratory Tests 05/11/19 15:00: Creatinine 1.49H, Platelet Count 365, Total Bilirubin 2.6H Results/Orders Lab Results Laboratory Tests Test 05/11/19 15:00 05/11/19 15:20 05/11/19 15:47 Range/Units White Blood Count 20.0 H 4.3-11.0 10^3/uL Red Blood Count 4.98 4.35-5.85 10^6/uL Hemoglobin 11.7 L 13.3-17.7 G/DL Hematocrit 36 L 40-54 % Mean Corpuscular Volume 73 L 80-99 FL Mean Corpuscular Hemoglobin 24 L 25-34 PG Mean Corpuscular Hemoglobin Concent 32 32-36 G/DL Red Cell Distribution Width 15.1 H 10.0-14.5 % Platelet Count 365 130-400 10^3/uL Mean Platelet Volume 9.2 7.4-10.4 FL Neutrophils (%) (Auto) 86 H 42-75 % Lymphocytes (%) (Auto) 7 L 12-44 % Monocytes (%) (Auto) 7 0-12 % Eosinophils (%) (Auto) 0 0-10 % Basophils (%) (Auto) 0 0-10 % Neutrophils # (Auto) 17.2 H 1.8-7.8 X 10^3 Lymphocytes # (Auto) 1.4 1.0-4.0 X 10^3 Monocytes # (Auto) 1.4 H 0.0-1.0 X 10^3 Eosinophils # (Auto) 0.0 0.0-0.3 10^3/uL Basophils # (Auto) 0.0 0.0-0.1 10^3/uL Neutrophils % (Manual) 85 % Lymphocytes % (Manual) 9 % Monocytes % (Manual) 6 % Eosinophils % (Manual) 0 % Basophils % (Manual) 0 % Band Neutrophils 0 % Blood Morphology Comment NORMAL Erythrocyte Sedimentation Rate 69 H 0-30 MM/HR Sodium Level 137 135-145 MMOL/L Potassium Level 2.7 L 3.6-5.0 MMOL/L Chloride Level 96 L 98-107 MMOL/L Carbon Dioxide Level 25 21-32 MMOL/L Anion Gap 16 H 5-14 MMOL/L Blood Urea Nitrogen 10 7-18 MG/DL Creatinine 1.49 H 0.60-1.30 MG/DL Estimat Glomerular Filtration Rate 60 BUN/Creatinine Ratio 7 Glucose Level 164 H 70-105 MG/DL Uric Acid 7.9 H 2.6-7.2 MG/DL Calcium Level 9.9 8.5-10.1 MG/DL Corrected Calcium 10.1 8.5-10.1 MG/DL Total Bilirubin 2.6 H 0.1-1.0 MG/DL Aspartate Amino Transf (AST/SGOT) 11 5-34 U/L Alanine Aminotransferase (ALT/SGPT) 11 0-55 U/L Alkaline Phosphatase 73 40-136 U/L C-Reactive Protein High Sensitivity 28.09 H 0.00-0.50 MG/DL Total Protein 7.4 6.4-8.2 GM/DL Albumin 3.8 3.2-4.5 GM/DL Urine Color YELLOW Urine Clarity SL CLOUDY Urine pH 5.5 5-9 Urine Specific Prichard 1.020 1.016-1.022 Urine Protein 1+ H NEGATIVE Urine Glucose (UA) NEGATIVE NEGATIVE Urine Ketones TRACE H NEGATIVE Urine Nitrite NEGATIVE NEGATIVE Urine Bilirubin 1+ H NEGATIVE Urine Urobilinogen 0.2 < = 1.0 MG/DL Urine Leukocyte Esterase NEGATIVE NEGATIVE Urine RBC (Auto) NEGATIVE NEGATIVE Urine RBC NONE /HPF Urine WBC 0-2 /HPF Urine Squamous Epithelial Cells NONE /HPF Urine Crystals NONE /LPF Urine Bacteria NEGATIVE /HPF Urine Casts NONE /LPF Urine Mucus NEGATIVE /LPF Urine Culture Indicated NO Lactic Acid Level 1.86 0.50-2.00 MMOL/L My Orders Orders - ASHLEY BROCK APRN Hs C Reactive Protein (05/11/19 14:59) Erythrocyte Sedimentation Rate (05/11/19 14:59) Ed Iv/Invasive Line Start (05/11/19 14:59) Ua Culture If Indicated (05/11/19 14:59) Uric Acid (05/11/19 14:59) Cbc With Automated Diff (05/11/19 14:59) Comprehensive Metabolic Panel (05/11/19 14:59) Ed Iv/Invasive Line Start (05/11/19 14:59) Ns Iv 1000 Ml (Sodium Chloride 0.9%) (05/11/19 15:00) Ketorolac Injection (Toradol Injection) (05/11/19 15:00) Oxycodone/Apap 5/325mg Tablet (Percocet (05/11/19 15:00) Manual Differential (05/11/19 15:00) Blood Culture (05/11/19 15:37) Lactic Acid Analyzer (05/11/19 15:37) Urine Culture (05/11/19 16:04) Sputum Culture (05/11/19 16:04) Medications Given in ED Current Medications Medications Dose Ordered Sig/Rosa M Route Start Time Stop Time Status Last Admin Dose Admin Ketorolac Tromethamine 15 mg ONCE ONCE IVP 05/11/19 15:00 05/11/19 15:01 DC 05/11/19 15:13 15 MG Oxycodone/ Acetaminophen 1 tab ONCE ONCE PO 05/11/19 15:00 05/11/19 15:01 DC 05/11/19 15:13 1 TAB Vital Signs/I&O 05/11/19 14:55 Temp 37.5 Pulse 120 Resp 20 B/P (MAP) 108/74 (85) Pulse Ox 96 O2 Delivery Room Air Capillary Refill : Departure Communication (Admissions) Time/Spoke to Admitting Phy: 16:[address] Solis, we'll admit, consult to Dr. Nance and Dr. Gomes. Dr. Nance and Dr. GOMES agreed with steroids, IV fluids, pain control. Dr. Nance would like empiric antibiotics given the sirs criteria, we will use cefepime given his penicillin allergy. Impression Primary Impression: Inflammatory polyarthropathy Additional Impression: Rheumatoid arthritis Qualified Codes: M05.79 - Rheumatoid arthritis with rheumatoid factor of multiple sites without organ or systems involvement Disposition: 09 ADMITTED INPATIENT Condition: Stable Admissions Decision to Admit Reason: Admit from ER (General) Decision to Admit/Date: May 11, 2019 Time/Decision to Admit Time: 16:25 Departure-Patient Inst. Referrals: EDGARDO BATES MD (PCP/Family) Primary Care Physician ASHLEY BROCK HALL MONITOR May 11, 2019 15:05 POS
[2019-05-11 15:11] LABS: BASOPHILS % (AUTO) 0 % (0-10); EOSINOPHILS % (AUTO) 0 % (0-10); HEMATOCRIT 36 % (40-54); HEMOGLOBIN 11.7 G/DL (13.3-17.7); LYMPHOCYTES # (AUTO) 1.4 X 10^3 (1.0-4.0); LYMPHOCYTES % (AUTO) 7 % (12-44); MEAN CORPUSCULAR HEMOGLOBIN 24 PG (25-34); MEAN CORPUSCULAR HGB CONC 32 G/DL (32-36); MEAN CORPUSCULAR VOLUME 73 FL (80-99); MEAN PLATELET VOLUME 9.2 FL (7.4-10.4); MONOCYTES # (AUTO) 1.4 X 10^3 (0.0-1.0); MONOCYTES % (AUTO) 7 % (0-12); NEUTROPHILS # (AUTO) 17.2 X 10^3 (1.8-7.8); NEUTROPHILS % (AUTO) 86 % (42-75); PLATELET COUNT 365 10^3/uL (130-400); RED CELL DISTRIBUTION WIDTH 15.1 % (10.0-14.5)
[2019-05-11 15:27] LABS: CLARITY,URINE SL CLOUDY; COLOR,URINE YELLOW; GLUCOSE, URINE (UA) NEGATIVE (NEGATIVE); KETONES,URINE TRACE (NEGATIVE); LEUKOCYTE ESTERASE ,URINE NEGATIVE (NEGATIVE); NITRITE,URINE NEGATIVE (NEGATIVE); PH,URINE 5.5 (5-9); PROTEIN,URINE 1+ (NEGATIVE)
[2019-05-11 15:36] LABS: BAND NEUTROPHILS 0 %; BASOPHILS % (MANUAL) 0 %; EOSINOPHILS % (MANUAL) 0 %; LYMPHOCYTES % (MANUAL) 9 %; MONOCYTES % (MANUAL) 6 %; NEUTROPHILS % (MANUAL) 85 %; RBC MORPH NORMAL
[2019-05-11 15:39] LABS: ALBUMIN 3.8 GM/DL (3.2-4.5); BILIRUBIN,TOTAL 2.6 MG/DL (0.1-1.0); CALCIUM 9.9 MG/DL (8.5-10.1); CREATININE SERUM 1.49 MG/DL (0.60-1.30); POTASSIUM 2.7 MMOL/L (3.6-5.0); TOTAL PROTEIN 7.4 GM/DL (6.4-8.2); URIC ACID 7.9 MG/DL (2.6-7.2)
[2019-05-11 15:50] LABS: ERYTHROCYTE SEDIMENTATION RATE 69 MM/HR (0-30)
[2019-05-11 15:51] LABS: BACTERIA,URINE NEGATIVE /HPF; BILIRUBIN,URINE 1+ (NEGATIVE); WBC,URINE 0-2 /HPF
[2019-05-11 17:00] VITALS: BP 115/86
[2019-05-11] MEDS ORDERED: ONDANSETRON 4 MG/2 ML (SDV) Z0FRAN IV PRN (17:00)
[2019-05-11] MEDS ORDERED: CATHETER FLUSH 10 ML SYR IV PRN (17:00)
[2019-05-11] MEDS ORDERED: fentaNYL INJECTION 100 MCG/2 ML AMP IV PRN (17:00)
[2019-05-11] MEDS: CEFEPIME 2,000 MG/SWFI 20 ML IV PUSH IV SCH ×2 (17:07)
[2019-05-11] MEDS: methylPREDNISolone 125 MG (Solu-MEDROL) VIAL IV SCH (17:08)
[2019-05-11] MEDS: oxyCODONE/APAP 5/325MG (PERCOCET 5) TABLET PO PRN ×2 (17:08→21:54)
[2019-05-11] MEDS: NS W/KCL 40 MEQ/L 1,000 ML IV SCH (17:10)
[2019-05-11 18:00] VITALS: BP 93/48
[2019-05-11 20:00] VITALS: BP 97/55
[2019-05-11] MEDS ORDERED: CALCIUM CARBONATE 500 MG (TUMS) TAB.CHEW PO PRN (20:00)
[2019-05-11] MEDS ORDERED: ACETAMINOPHEN 500 MG TAB (TYLENOL) PO PRN (20:00)
[2019-05-11] MEDS ORDERED: diphenhydrAMINE 25 MG TAB (BENADRYL) PO PRN (20:00)
[2019-05-11] MEDS ORDERED: ONDANSETRON 4 MG (ZOFRAN) ORAL DISSOLVE TAB PO PRN (20:00)
[2019-05-11] MEDS ORDERED: MELATONIN 3 MG TABLET PO PRN (20:00)
[2019-05-11] MEDS ORDERED: DOCUSATE SODIUM 100 MG (COLACE) CAP PO PRN (20:00)
[2019-05-11] MEDS ORDERED: LOPERAMIDE 2 MG (IMODIUM) TABLET PO PRN (20:00)
[2019-05-11] MEDS ORDERED: ONDANSETRON 4 MG/2 ML (SDV) Z0FRAN IVP PRN (20:00)
[2019-05-11] MEDS ORDERED: ALPRAZolam 0.25 MG (XANAX) TAB PO PRN (20:00)
[2019-05-11 21:00] VITALS: BP 93/55
[2019-05-11] MEDS ORDERED: ENOXAPARIN 40 MG/0.4 ML (LOVENOX) SYR SC SCH (21:00)
[2019-05-11] MEDS: ENOXAPARIN 40 MG/0.4 ML (LOVENOX) SYR SC SCH (21:47)
[2019-05-11] MEDS: SENNA W/DOCUSATE (SENOKOT S) TABLET PO SCH (21:47)
[2019-05-11] MEDS: DOCUSATE SODIUM 100 MG (COLACE) CAP PO SCH (21:47)
[2019-05-11 22:00] VITALS: BP 106/63
[2019-05-11 23:00] VITALS: BP 99/62
--- NOTE | 2019-05-11 23:49 | CONSULTATION REPORT ---
DATE OF SERVICE: INPATIENT CONSULTATION REASON FOR CONSULTATION: Right wrist and bilateral shoulder pain. HISTORY OF PRESENT ILLNESS: The patient is a 53-year-old gentleman with known history of gout, who has been treated recently with two episodes of oral prednisone for right wrist inflammation. He responded both times, but then reported that it has recurred. He has had some recent ankle pain, but reports it is feeling better. He also has a history of rheumatoid arthritis. He denies fever, chills or night sweats. He takes Uloric for the gout. He has been admitted and started on IV steroid and reports that he is already feeling better. PHYSICAL EXAMINATION: His right wrist demonstrates swelling diffusely, associated erythema and warmth. He has pain with range of motion of the wrist. The shoulders demonstrate pain with rotation. Left wrist demonstrates mild edema, minimal warmth. Ankles demonstrate no pain with range of motion. LABORATORY DATA: Laboratory assessment demonstrates elevated white blood cell count, elevated CRP, elevated sed rate as well as an elevated uric acid. CLINICAL IMPRESSION: Systemic flare of inflammatory arthritis with gout and rheumatoid arthritis. PLAN: Recommend treatment of his inflammatory arthritis. I do not feel that clinically this patient has septic arthritis. We will follow up as needed. Thank you for the consultation. Job ID: [id number] DocumentID: [id number] Dictated Date: 05/11/2019 18:20:16 Ux Architect Date: 05/11/2019 23:49:02 Dictated By: PEDRO MURDOCK MD
[2019-05-12] VITALS (12 sets, daily range): BP systolic 94–166; BP diastolic 53–95
[2019-05-12] MEDS: methylPREDNISolone 125 MG (Solu-MEDROL) VIAL IV SCH (00:08)
[2019-05-12] MEDS: NS W/KCL 40 MEQ/L 1,000 ML IV SCH ×2 (00:08→06:26)
[2019-05-12] MEDS: CEFEPIME 2,000 MG/SWFI 20 ML IV PUSH IV SCH ×6 (00:08→17:31)
[2019-05-12] MEDS: inSUlin ASPART (NovoLOG) 1 UNIT/0.01 ML (CHARGE PER UNIT) SQ SCH ×5 (00:18→21:34)
[2019-05-12] MEDS ORDERED: inSUlin ASPART (NovoLOG) 1 UNIT/0.01 ML (CHARGE PER UNIT) ONE (00:18)
[2019-05-12 03:22] LABS: BASOPHILS % (AUTO) 0 % (0-10); EOSINOPHILS % (AUTO) 0 % (0-10); HEMATOCRIT 34 % (40-54); HEMOGLOBIN 10.9 G/DL (13.3-17.7); LYMPHOCYTES # (AUTO) 0.6 X 10^3 (1.0-4.0); LYMPHOCYTES % (AUTO) 4 % (12-44); MEAN CORPUSCULAR HEMOGLOBIN 23 PG (25-34); MEAN CORPUSCULAR HGB CONC 32 G/DL (32-36); MEAN CORPUSCULAR VOLUME 72 FL (80-99); MEAN PLATELET VOLUME 9.8 FL (7.4-10.4); MONOCYTES # (AUTO) 0.3 X 10^3 (0.0-1.0); MONOCYTES % (AUTO) 2 % (0-12); NEUTROPHILS # (AUTO) 14.4 X 10^3 (1.8-7.8); NEUTROPHILS % (AUTO) 94 % (42-75); PLATELET COUNT 336 10^3/uL (130-400); RED CELL DISTRIBUTION WIDTH 15.3 % (10.0-14.5); WHITE BLOOD COUNT 15.3 10^3/uL (4.3-11.0)
[2019-05-12 03:40] LABS: ALBUMIN 3.6 GM/DL (3.2-4.5); BILIRUBIN,TOTAL 1.8 MG/DL (0.1-1.0); CALCIUM 9.2 MG/DL (8.5-10.1); CREATININE SERUM 1.73 MG/DL (0.60-1.30); POTASSIUM 3.7 MMOL/L (3.6-5.0); TOTAL PROTEIN 7.2 GM/DL (6.4-8.2)
--- NOTE | 2019-05-12 05:38 | Pulmonary Consultation ---
History of Present Illness History of Present Illness Time Seen by Provider: 09:25 Date of Admission History of Present Illness 53yo with hx of Gout, and RA presented to ED secondary to severe 10/10 worsening bilateral upper ext joint pains large and small joints. Denies f/ns/c. Pt was placed on prednisone a few weeks ago however is not currenty on it. He has had similar prior episodes. He takes Uloric for the gout. Allergies and Home Medications Allergies Coded Allergies: Penicillins (Verified Allergy, Unknown, 01/31/16) Home Medications Aripiprazole 15 Mg Tablet, 15 MG PO DAILY, (Reported) LAST FILLED #90 06-25-18 Aspirin 81 Mg Tab.chew, 81 MG PO DAILY, (Reported) Colchicine 0.6 Mg Tablet, 0.6 MG PO BID PRN for GOUT FLARE, (Reported) Febuxostat 80 Mg Tablet, 80 MG PO DAILY, (Reported) LAST FILLED #90 07-02-18 Lisinopril 10 Mg Tablet, 10 MG PO DAILY, (Reported) LAST FILLED #30 07-23-18 Potassium Chloride 10 Meq Tablet.er, 10 MEQ PO BID, (Reported) Prednisone 20 Mg Tab, 20 MG PO DAILY, (Reported) Take 3 tabs(60mg)daily, decrease by 1/2 tab(10mg)daily. Past Hvogxrr-Aygwmp-Ucflky Hx Patient Social History Alcohol Use: Denies Use Number of Drinks Today: AA Alcohol Beverage of Choice: Beer Recreational Drug Use: No Smoking Status: Former Smoker Type Used: Smokeless Tobacco Former Smoker, Quit: Jan 19, 1990 Recent Foreign Travel: No Contact w/Someone Who Travel: No Recent Infectious Disease Expo: No Recent Hopitalizations: No Physical Abuse: No Sexual Abuse: No Mistreated: No Fear: No Immunizations Up To Date Tetanus Booster (TDap): Unknown Date of Pneumonia Vaccine: Aug 08, 2013 Seasonal Allergies Seasonal Allergies: No Past Medical History Surgeries: Yes (EGD, HEART CATH 02/2019) Gallbladder, Tonsillectomy Respiratory: Yes (SLEEP APNEA, USES CPAP) Sleep Apnea Currently Using CPAP: Yes Currently Using BIPAP: No Cardiac: Yes High Cholesterol, Hypertension Neurological: No Reproductive Disorders: No Sexually Transmitted Disease: No HIV/AIDS: No Genitourinary: Yes (CHRONIC RENAL INSUFFICIENCY) Gastrointestinal: Yes Gastroesophageal Reflux, Esophagitis, Ulcer Musculoskeletal: Yes Arthritis, Rheumatoid Arthritis, Fractures, Gout Endocrine: Yes (OBESITY; THYROID NODULE) Diabetes, Non-Insulin dep HEENT: No Cancer: No Psychosocial: Yes Anxiety, Depression Integumentary: No Blood Disorders: No Family Medical History Diabetes mellitus 19 MOTHER PATERNAL GRANDFATHER Neoplasm 19 FATHER (THROAT CANCER-SMOKER) No Pertinent Family Hx Sepsis Event Evaluation Height, Weight, BMI Height: 5'10.00" Weight: 280lbs. 1.0oz. 127.906734mu; 41.37 BMI Method:Stated Exam Exam Vital Signs Date Time Temp Pulse Resp B/P (MAP) Pulse Ox O2 Delivery O2 Flow Rate FiO2 05/12/19 05:00 73 20 103/67 (79) 100 Room Air 05/12/19 04:00 Room Air 05/12/19 04:00 79 19 110/67 (81) 100 Room Air 05/12/19 04:00 36.4 05/12/19 03:00 75 19 107/69 (82) 100 Room Air 05/12/19 02:03 83 05/12/19 02:00 78 19 126/79 (95) 100 Room Air 05/12/19 01:00 75 19 97/60 (72) 100 Room Air 05/12/19 00:00 37.2 87 19 94/53 (67) 100 Room Air 05/12/19 00:00 Room Air 05/11/19 23:00 85 19 99/62 (74) 100 Room Air 05/11/19 22:00 93 19 106/63 (77) 100 Room Air 05/11/19 21:00 82 19 93/55 (68) 100 Room Air 05/11/19 21:00 Room Air 05/11/19 20:00 36.2 87 23 97/55 (69) 100 Room Air 05/11/19 20:00 Room Air 05/11/19 19:00 92 05/11/19 18:00 96 26 93/48 (63) 100 Room Air 05/11/19 17:00 111 11 115/86 (96) 100 Room Air 05/11/19 16:55 Room Air 05/11/19 16:51 114 05/11/19 16:40 37.5 112 20 113/81 (85) 97 Room Air 05/11/19 14:55 37.5 120 20 108/74 (85) 96 Room Air I & O 05/12/19 07:00 Intake Total 2320 ml Output Total 200 ml Balance 2120 ml Height & Weight Height: 5'10.00" Weight: 280lbs. 1.0oz. 127.566142cr; 41.37 BMI Method:Stated General Appearance: No Apparent Distress, WD/WN HEENT: PERRL/EOMI, TMs Normal Respiratory: Lungs Clear, Normal Breath Sounds, No Accessory Muscle Use, No Respiratory Distress Cardiovascular: Normal Peripheral Pulses, Tachycardia Capillary Refill: Greater Than 3 Seconds Extremity: Normal Capillary Refill, Normal Inspection, Other (she only significant swelling of the wrist joints, interphalangeal joints of the fingertips,He has rather advanced gouty changes of his joints including gouty tophi of the fingertips, chronic deformity of the interphalangeal joints. Swelling and discomfort of the joints is bilateral/symmetric. There is no one joint that is more tender or swollen than another.) Neurologic/Psychiatric: Alert, Oriented x3, No Motor/Sensory Deficits Skin: Normal Color, Warm/Dry Results Lab Laboratory Tests 05/11/19 15:00 05/12/19 02:45 Assessment/Plan Assessment/Plan SIRS r/o Sepsis -Cefepime -Nuñez cultures Upper extremity weakness and inflammatory polyarthropathy -Solumedrol Hx of RA Renal insufficiency -Monitor Anemia -Monitor PANCHO BASSETT DO May 12, 2019 05:38 POS
[2019-05-12] MEDS ORDERED: NS IV 1000 ML 1,000 ML IV SCH (05:45)
[2019-05-12] MEDS ORDERED: NS IV 1000 ML 1,000 ML ONE (06:30)
--- NOTE | 2019-05-12 07:11 | Diagnostic Imaging Report ---
INDICATION: Leukocytosis. FINDINGS: Portable chest. The lungs are well aerated and clear. The heart is not enlarged. No pulmonary edema or hilar adenopathy. No bony abnormalities. IMPRESSION: Negative portable chest. Dictated by: Dictated on workstation # [id number]
[2019-05-12] MEDS: LACTATED RINGERS 1,000 ML IV SCH ×4 (08:44→23:22)
[2019-05-12] MEDS: SENNA W/DOCUSATE (SENOKOT S) TABLET PO SCH ×2 (09:55→21:46)
[2019-05-12] MEDS: ENOXAPARIN 40 MG/0.4 ML (LOVENOX) SYR SC SCH ×2 (09:56→21:47)
[2019-05-12] MEDS: DOCUSATE SODIUM 100 MG (COLACE) CAP PO SCH ×2 (09:56→21:46)
[2019-05-12] MEDS ORDERED: COLC0.6T53 PO (10:23)
[2019-05-12] MEDS ORDERED: METF-397 PO (10:23)
[2019-05-12] MEDS ORDERED: METO-370 PO (10:23)
[2019-05-12] MEDS ORDERED: PANT40TA3 PO (10:23)
[2019-05-12] MEDS ORDERED: POTA10CA43 PO (10:23)
[2019-05-12] MEDS ORDERED: IBUP-1780 PO (10:23)
--- NOTE | 2019-05-12 10:28 | NUR ---
WENT OVER THE EXT MED HX WITH THE PATIENT. HE VERIFIED WHAT HE TAKES. HE THOUGHT HE WAS TAKING LISINOPRIL HOWEVER IT HAS NOT BEEN FILLED SINCE 07-23-18 - HE DID NOT THINK HE WAS TAKING METOPROLOL ANYMORE BUT IT HAS BEEN FILLED RECENTLY. HE AGREED HE IS TAKING WHATEVER WAS FILLED MOST RECENTLY. HE STATES HE TAKES ULORIC EVERYDAY BUT HAS NOT FILLED IT AT [facility] [facility] SINCE 07-02-18 #90. DESPITE THIS HE IS ADAMANT HE TAKES IT DAILY BUT DOES NOT FILL ANYWHERE OTHER THAN [facility] AND DOES NOT RECEIVE SAMPLES. I NOTED THE PAST DUE FILL DATE ON THE MED REC. HE TAKES ASPIRIN 81MG OTC. HE STATES ALL OF HIS INSULIN HAS BEEN DISCONTINUED.
--- NOTE | 2019-05-12 11:15 | NUR ---
Pastoral care visit.
--- NOTE | 2019-05-12 13:03 | Progress Note ---
Standard Progress Note Progress Notes/Assess & Plan Date Seen by a Provider: May 12, 2019 Time Seen by a Provider: 13:00 Progress/Assessment & Plan patient feeling better. Reports less shoulder and wrist pain R wrist with decreased edema, though still pronounced imp--inflammatory arthropathy continue current care Focused Exam Lactate Level 05/11/19 15:47: Lactic Acid Level 1.86 PEDRO MURDOCK MD May 12, 2019 13:03 POS
[2019-05-12] MEDS: oxyCODONE/APAP 5/325MG (PERCOCET 5) TABLET PO PRN (13:22)
[2019-05-12 13:39] LABS: AMPHETAMINE SCREEN, URINE NEGATIVE (NEGATIVE); BARBITURATE SCREEN URINE NEGATIVE (NEGATIVE); BENZODIAZEPINES SCREEN URINE NEGATIVE (NEGATIVE); CANNABINOID SCREEN, URINE NEGATIVE (NEGATIVE); COCAINE SCREEN URINE NEGATIVE (NEGATIVE); METHADONE STAT NEGATIVE (NEGATIVE); METHAMPHETAMINE SCREEN URINE S NEGATIVE (NEGATIVE); OPIATE SCREEN URINE NEGATIVE (NEGATIVE); OXYCODONE STAT POSITIVE (NEGATIVE); PROPOXYPHENE STAT NEGATIVE (NEGATIVE); TRICYCLIC ANTIDEPRESSANTS SCRE NEGATIVE (NEGATIVE)
--- NOTE | 2019-05-12 13:41 | History & Physical-Hospitalist ---
JUAN M [facility] 05/12/19 1341: History of Present Illness HPI/Chief Complaint CC: Ankle, Knee, Wrist, Hand, Elbow joint pain HPI: Pt presents to the ER with swelling and pain in all of his joints. He has a history of arthritis that he reports being told a month ago that he has Rheumatoid Arthritis, but he has not seen a security professional for follow up after being diagnosed. He has a history of GERD, Sleep apnea, Heart Cath, diabetes, and Renal disease. He had an elevated WBC 20.0, ESR 69 with a mild anemia 11.7, hypokalemia at 2.7. His vitals were concerning for SIRS with an initial heart rate 120 that decreased to 96, but his blood pressure 93/48, and respiratory rate 26. He was admitted to ICU started on antibiotics, corticosteroids, and IV fluids. Overnight he had significant improvement in his pain, but his wrist and hand pain are still significant with warmth and swelling present. His vital signs stabilized as well and the patient was transferred to the med/surg floor. Source: patient Exam Limitations: no limitations Date Seen 05/12/19 Attending Physician Felipa Taylor David F MD Referring Physician Date of Admission May 11, 2019 at 16:00 Home Medications & Allergies Home Medications Reviewed patient Home Medication Reconciliation performed by pharmacy medication reconciliations industrial ecology technician and/or nursing. Patients Allergies have been reviewed. Allergies Allergies Coded Allergies Penicillins (Verified Allergy, Unknown, 01/31/16) Past Ilzywsb-Ygttbx-Lawdtz Hx Patient Social History Alcohol Use: Denies Use Number of Drinks Today: AA Alcohol Beverage of Choice: Beer Recreational Drug Use: No Smoking Status: Former Smoker Former Smoker, Quit: Jan 19, 1990 Type Used: Smokeless Tobacco Recent Foreign Travel: No Contact w/other who traveled: No Recent Hopitalizations: No Recent Infectious Disease Expo: No Immunizations Up To Date Tetanus Booster (TDap): Unknown Date of Pneumonia Vaccine: Aug 08, 2013 Seasonal Allergies Seasonal Allergies: No Past Medical History Surgeries: Gallbladder, Tonsillectomy Currently Using CPAP: Yes Currently Using BIPAP: No Cardiac: High Cholesterol, Hypertension Reproductive: No Sexually Transmitted Disease: No HIV/AIDS: No Gastrointestinal: Gastroesophageal Reflux, Esophagitis, Ulcer Musculoskeletal: Arthritis, Rheumatoid Arthritis, Fractures, Gout Endocrine: Diabetes, Non-Insulin dep Psychosocial: Anxiety, Depression History of Blood Disorders: No Family History Diabetes mellitus 19 MOTHER PATERNAL GRANDFATHER Neoplasm 19 FATHER (THROAT CANCER-SMOKER) No Pertinent Family Hx Review of Systems Constitutional: No chills, No dizziness, No fever, No malaise EENTM: tearing, nose congestion; No blurred vision, No double vision, No vision loss, No mouth pain, No throat pain Respiratory: No cough, No short of breath Cardiovascular: No chest pain; Hx of Intervention; No palpitations Gastrointestinal: No abdominal pain, No constipation, No diarrhea, No dysphagia, No nausea, No vomiting Genitourinary: No dysuria, No hematuria Musculoskeletal: gout, joint pain, other (Warmth, swelling bilateral wrist) Psychiatric/Neurological: Denies Headache, Denies Numbness, Denies Tingling Physical Exam Physical Exam Vital Signs Vital Signs - First Documented 05/11/19 14:55 Temp 37.5 Pulse 120 Resp 20 B/P (MAP) 108/74 (85) Pulse Ox 96 O2 Delivery Room Air Capillary Refill : Greater Than 3 SecondsGreater Than 3 Seconds Height, Weight, BMI Height: 5'10.00" Weight: 280lbs. 1.0oz. [id number]; 41.37 BMI Method:Stated General Appearance: Mild Distress, Obese Respiratory: Chest Non Tender, Lungs Clear, Normal Breath Sounds, No Accessory Muscle Use, No Respiratory Distress Cardiovascular: Regular Rate, Rhythm, No Murmur, Normal Peripheral Pulses Extremity: No Normal Range of Motion (Decreased wrist and hand); No Calf Tenderness, No Pedal Edema, Swelling (Bilateral wrist) Neurologic/Psychiatric: Alert, Oriented x3, Normal Mood/Affect Skin: Normal Color, Warm/Dry Results Results/Procedures Labs Laboratory Tests 05/11/19 15:00 05/12/19 02:45 Patient resulted labs reviewed. Assessment/Plan Assessment and Plan Assessment: SIRS, possible sepsis Inflammatory Arthritis vs Septic Joint Diabetes HTN Chronic Kidney Disease Rheumatoid arthritis Gout Plan: IV fluids, Antibiotics for sepsis prevention Corticosteroids for inflammatory arthritis Diabetes management Manage HTN Pain management with bowel management DVT prophylaxis Continue home medications Gout friendly diet Clinical Quality Measures DVT/VTE Risk/Contraindication: Risk Factor Score Per Nursin RFS Level Per Nursing on Admit: 3=High FELIPA TAYLOR DO 05/12/192027: History of Present Illness HPI/Chief Complaint CC: Inflammatory arthritis flare HPI: This is a 53yo male who is chronically disabeled from gout, rheumatoid arthritis who reports he has yet to Dr. Mohan and I checked with [facility] and apparently he did not complete the required documentation so the appointment was canceled but he came in. with B/L wrist pain, elbow pain, knee pain and ankle pain and could not ambulate. Pt was seen by Dr. Gomes and not anything to suggest septic arthritis. He was placed on Cefepime empirically along with IV steroids, and Dr. Nance consultation for additional evaluation so he had improved a great deal since admission and will be transferred to 4th floor. I did put in an order for PT and OT since he has such debilitating RA for rehab possibly before going home. Source: patient Exam Limitations: no limitations Time Seen by a Provider: 09:00 Past Zplysrp-Dymzht-Acvkar Hx Past Med/Social Hx: Reviewed Nursing Past Med/Soc Hx, Reviewed and Corrections made Patient Social History Marrital Status: Employed/Student: unemployed Family History Diabetes mellitus 19 MOTHER PATERNAL GRANDFATHER Neoplasm 19 FATHER (THROAT CANCER-SMOKER) Review of Systems Constitutional: see HPI Musculoskeletal: joint pain, joint swelling, muscle pain Physical Exam Physical Exam General Appearance: WD/WN, Chronically ill, Mild Distress, Obese Eyes: Right Eye Normal Inspection, Right Eye PERRL HEENT: PERRL/EOMI, Normal ENT Inspection, Pharynx Normal, Moist Mucous Membranes Neck: Full Range of Motion, Normal Inspection, Non Tender Respiratory: Chest Non Tender, Lungs Clear, Normal Breath Sounds, No Accessory Muscle Use, No Respiratory Distress Cardiovascular: Regular Rate, Rhythm, No Edema, No Gallop, No JVD, No Murmur, Normal Peripheral Pulses Gastrointestinal: Normal Bowel Sounds, No Organomegaly, No Pulsatile Mass, Non Tender, Soft Back: Normal Inspection, No CVA Tenderness, No Vertebral Tenderness Extremity: Normal Capillary Refill, Normal Inspection, Normal Range of Motion (limited ROM all extremities with contractures of his fingers), Non Tender, No Calf Tenderness, No Pedal Edema Neurologic/Psychiatric: Alert, Oriented x3, No Motor/Sensory Deficits, Normal Mood/Affect, lighting engineer II-XII Norm as Tested Skin: Normal Color, Warm/Dry Lymphatic: No Adenopathy Assessment/Plan Admission Diagnosis Assessment: Inflammatory arthritis acute RA Gout Plan: Steroids IV abx empiric Admission Status: Inpatient Order (span 2 midnights) Reason for Inpatient Admission: Inflammatory arthritis will require IV steroids Diagnosis/Problems Diagnosis/Problems (1) Inflammatory polyarthropathy Status: Acute (2) Rheumatoid arthritis Status: Chronic Qualifiers: Rheumatoid arthritis location: multiple sites Rheumatoid factor presence: with rheumatoid factor Qualified Codes: M05.79 - Rheumatoid arthritis with rheumatoid factor of multiple sites without organ or systems involvement (3) Pjd-swxopxp-otmxsktfi diabetes mellitus during , antepartum Status: Chronic Supervisory-Addendum Brief Verification & Attestation Participated in pt care: history, MDM, physical Personally performed: exam, history, MDM, supervision of care Care discussed with: Medical Student Procedures: n/a Results interpretation: Verified all documentation Verification and Attestation of Medical Student E/M Service A medical student performed and documented this service in my presence. I reviewed and verified all information documented by the medical student and made modifications to such information, when appropriate. I personally performed the physical exam and medical decision making. Felipa Taylor, May 12, 2019,20:26 [facility] May 12, 2019 13:41 FELIPA ARRIETA DO May 12, 2019 20:28 POS
--- NOTE | 2019-05-12 14:42 | Occupational Therapy Eval ---
OT Evaluation-General/PLF Medical Diagnosis Admission Date May 11, 2019 at 16:00 Medical Diagnosis: Systemic flare of inflammatory arthritis Onset Date: May 11, 2019 Therapy Diagnosis Therapy Diagnosis: Weakness Height/Weight Height (Feet): 5 Height (Inches): 10.00 Weight (Pounds): 280 Weight (Ounces): 1.0 Precautions Precautions/Isolations: Standard Precautions Weight Bear Status Weight Bearing Restriction: Weight Bearing/Tolerated Referral Physician: Dr. Solis Referral Reason: Activity Tolerance, Self Care, Evaluation/Treatment, Strengthening/ROM Medical History Pertinent Medical History: Arthritis, DM, GERD, HTN, Rheumatoid Arthritis, Smoking Current History Pt. states that he has been in this state for approximately 1-2 months. States that he knew he had OA, but was unaware of RA. Reviewed History: Yes Social History Home: Single Level Current Living Status: Spouse ADL-Prior Level of Function SCALE: Activities may be completed with or without assistive devices. 2-Tgmessowwo-dyzemau completes the activity by him/herself with no assistance from a helper. 5-Set-up or Clean-up Assistance-helper sets up or cleans up; patient completes activity. [place] assists only prior to or following the activity. 4-Supervision or Touching Assistance-helper provides verbal cues and/or touching/steadying and/or contact guard assistance as patient completes activity. Assistance may be provided throughout the activity or intermittently. 3-Partial/Moderate Assistance-helper does LESS THAN HALF the effort. [place] li fts, holds or supports trunk or limbs, but provides less than half the effort. 2-Substantial/Maximal Assistance-helper does MORE THAN HALF the effort. [place] lifts or holds trunk or limbs and provides more than half the effort. 0-Ailyfxkyw-kmlwuy does ALL the effort. Patient does none of the effort to complete the activity. Or, the assistance of 2 or more helpers is required for the patient to complete the activity. If activity was not attempted, code reason: 7-Patient Refused. 9-Not Applicable-not attempted and the patient did not perform the activity before the current illness, exacerbation or injury. 10-Not Attempted due to Environmental Limitations-(lack of equipment, weather restraints, etc.). 88-Not Attempted due to Medical Conditions or Safety Concerns. ADL PLOF Comments Pt. states that his spouse assists him at times with tying shoes, buttoning his shirts, etc....States that it is only when he has "flares." Self Care: Needed Some Help Functional Cognition: Independent DME/Equipment Comments Pt. has toilet riser. Pt. has a walker but does not use it. OT Current Status Subjective Pt. reports pain in right wrist with movement, but does not state pain level. Is currently receiving steroids. Appearance Pt. is up in chair and dressed. Playing on phone. Agrees to OT treatment. Mental Status/Objective Patient Orientation: Person, Place, Time, Situation Attachments: IV Current Glasses/Contacts: Yes Hand Dominance: Right Upper Extremity ROM Pt. is able to slowly flex bilateral shoulders WFL, but moves very slowly. Is able to flex bilateral elbows. Unable to extend right wrist. Pt. is able to actively flex left wrist, but it is not much further than neutral. Pt. states that this is his "normal." Noted that fingers on left hand have limited flexion at DIP joints, but able to flex at MP joints. Pt. unable to flex fingers on right hand actively. Upper Extremity Coordination Impaired bilaterally Upper Extremity Strength Right- very trace "squeeze." Left hand demonstrates 2/5 strength. Edema: Increased edema right hand. Pt. reports that left hand "is normal." ADL-Treatment Eating (QC): 6 (Per pt. report, he is able to hold his silverware with left hand and has no difficulty feeding self. However, pt. does agree for OT to bring in built up foam handles for later use.) Oral Hygiene (QC): 7 Shower/Bathe Self (QC): 7 Upper Body Dressing (QC): 10 (Pt. already dressed. However, is agreeable to be educated on button hook use to make buttoning his shirts easier.) Lower Body Dressing (QC): 10 (Pt. already dressed but reports that his spouse assists him when needed. Pt. is agreeable for OT to bring elastic laces for easier access of tennis shoes.) On/Off Footwear (QC): 10 Toileting Hygiene (QC): 6 (Pt. reports that he is independent with this. However, is agreeable for OT to bring him toilet tongs to make this task easier.) Toilet Transfer (QC): 7 Other Treatments Pt. is sitting up in chair with his phone when OT entered room. Pt. is using phone with left hand only. OT educates pt. on purpose of OT and items that can make overall ADL tasks easier. Pt. verbalizes understanding and is agreeable to this education. At next session, OT will bring in built up foam handles, therapy sponge, button hook for demonstration, toilet tongs, and elastic laces. Pt. is able to demonstrate bilateral UE abilities to this therapist. OT provides very gentle PROM to right wrist, although range is limited by overall arthritis and pain. Pt. is educated about importance of continuing active and self ROM to right UE. Pt. verbalizes understanding. Will not complete massage at this time due to nature of systemic inflammation. Pt. verbalizes that he does not need a walker at this time, and requests for OT to take the walker out of his room that was left by PT. Pt. verbalizes that spouse has helped him for some time with ADLs as needed, due to continual arthritis. Spouse in room and verbalizes this. However, pt. does agree for OT to bring back other items for increased independence. All needs met in room. Education OT Patient Education: Correct positioning, Exercise program, Modified ADL t echniques, Progress toward Goal/Update tx plan, Purpose of tx/functional activities, Reviewed precautions, Rehab process Teaching Recipient: Patient, Significant Other Teaching Methods: Demonstration, Discussion Response to Teaching: Verbalize Understanding, Return Demonstration OT Thoracic Medicine Specialist Goals Shelter Goals Time Frame: May 19, 2019 Eating (QC): 6 Oral Hygiene (QC): 6 Toileting Hygiene (QC): 6 Shower/Bathe Self (QC): 9 Upper Body Dressing (QC): 6 Lower Body Dressing (QC): 6 On/Off Footwear (QC): 6 OT will provide education and demonstration of AE that will assist pt. to be fully independent if willing. OT will also continue providing PROM and AAROM to right UE to assist pt. to achieve baseline mobility. Additional Goals: 1-Demonstrate ADL Tasks, 2-Verbalize Understanding, 3- ImproveStrength/Araceli 1=Demonstrate adherence to instructed precautions during ADL tasks. 2=Patient will verbalize/demonstrate understanding of assistive devices/modifications for ADL. 3=Patient will improve strength/tolerance for activity to enable patient to perform ADL's. OT Education/Plan Problem List/Assessment Assessment: Decreased UE Strength, Impaired Coordination, Impaired I ADL's, Impaired Self-Care Skills, Restricted Funct UE ROM Discharge Recommendations Plan/Recommendations: Continue POC Therapy Discharge Recommendati: Post Acute OT Treatment Plan/Plan of Care Treatment,Training & Education: Yes Patient would benefit from OT for education, treatment and training to promote independence in ADL's, mobility, safety and/or upper extremity function for ADL's. Plan of Care: ADL Retraining, Functional Mobility, UE Funct Exercise/Act Treatment Duration: May 19, 2019 Frequency: 5 times per week Estimated Hrs Per Day: .25 hour per day Agreement: Yes Rehab Potential: Good Time/GCodes Start Time: 14:05 Stop Time: 14:20 Total Time Billed (hr/min): 15 Billed Treatment Time 1, YESICA URIOSTEGUI OT May 12, 2019 14:41 POS
--- NOTE | 2019-05-12 15:33 | Physical Therapy Evaluation ---
PT Evaluation-General Medical Diagnosis Admission Date May 11, 2019 at 16:00 Medical Diagnosis: Systemic flare of inflammatory arthritis Onset Date: May 11, 2019 Therapy Diagnosis Therapy Diagnosis: abnormal gait Height/Weight Height (Feet): 5 Height (Inches): 10.00 Weight (Pounds): 280 Weight (Ounces): 1.0 Precautions Precautions/Isolations: Standard Precautions Referral Physician: Dr. Solis Reason for Referral: Evaluation/Treatment Medical History Pertinent Medical History: Arthritis, DM, GERD, HTN, Rheumatoid Arthritis, Smoking Current History Pt admitted to hospital with above noted diagnosis. Reviewed History: Yes Social History Home: Single Level Current Living Status: Spouse Prior Prior Level of Function SCALE: Activities may be completed with or without assistive devices. 7-Xiaykxqstn-xamuefu completes the activity by him/herself with no assistance from a helper. 5-Set-up or Clean-up Assistance-helper sets up or cleans up; patient completes activity. [place] assists only prior to or following the activity. 4-Supervision or Touching Assistance-helper provides verbal cues and/or touching/steadying and/or contact guard assistance as patient completes activity. Assistance may be provided throughout the activity or intermittently. 3-Partial/Moderate Assistance-helper does LESS THAN HALF the effort. [place] lifts, holds or supports trunk or limbs, but provides less than half the effort. 2-Substantial/Maximal Assistance-helper does MORE THAN HALF the effort. [place] lifts or holds trunk or limbs and provides more than half the effort. 1-Bvrtrmafn-phqoow does ALL the effort. Patient does none of the effort to complete the activity. Or, the assistance of 2 or more helpers is required for the patient to complete the activity. If activity was not attempted, code reason: 7-Patient Refused. 9-Not Applicable-not attempted and the patient did not perform the activity before the current illness, exacerbation or injury. 10-Not Attempted due to Environmental Limitations-(lack of equipment, weather restraints, etc.). 88-Not Attempted due to Medical Conditions or Safety Concerns. Pt is indep with all functional mobility and self care. PT Evaluation-Current Subjective Pt agreeable to PT. Reports he feels he has been in bed too long and is stiff. Pt/Family Goals He wants to return home when able. Objective Patient Orientation: Person, Place, Time, Situation ROM/Strength ROM Lower Extremities WFL; pt moves "stiffly" but his range allows all movement necessary Strength Lower Extremities wFL Integumentary/Posture Integumentary refer to nursing notes Bowel Incontinence: No Bladder Incontinence: No Posture rounded shoulders; feet in ER; wide MARVA; slightly flexed at hips Neuromuscular (Tone, Coordination, Reflexes) intact Sensory Vision: Functional Hearing: Functional Hand Dominance: Right Sensation Right Lower Extremit: Intact Sensation Left Lower Extremity: Intact Transfers Roll Left to Right (QC): 5 Sit to Lying (QC): 5 Lying to Sitting/Side of Bed(Q: 5 Sit to Stand (QC): 4 (SBA for safety and he had not been up for some time. ) Chair/Gow-ta-Qdryi Xfer(QC): 4 Car Transfer (QC): 10 Gait Does the Patient Walk?: Yes Anticipated Mode of Locomotion: Walk Walk 10 feet (QC): 4 Walk 50 ft with 2 Turns(QC): 4 Walk 150 ft (QC): 4 Walking 10ft/uneven surface-QC: 10 Gait Assistive Device: None Comments/Gait Description SBA with gait; no noted LOB; wide MARVA and feet in ER. Wheelchair Training Does the Pt Use a Wheelchair?: No Wheel 50 ft with 2 turns (QC): 9 Wheel 150 ft (QC): 9 Type of Wheelchair: Manual Stairs 1 Step (curb) (QC): 10 4 Steps (QC): 10 12 Steps (QC): 10 Balance Sitting Static: Good Sitting Dynamic: Good Standing Static: Fair Standing Dynamic: Fair Picking up an Object (QC): 88 Assessment/Needs Pt presents with above noted diagnosis; he has was slow to move initially, due to being in bed for a while, but once up, moves at his usual pace and pattern. Pt will benefit from PT for 1-2 days to promote activity while hospitalized and continue to monitor safety and mobilty Rehab Potential: Good PT Snf Goals Aircraft Part Assembler Goals PT Aircraft Part Assembler Goals Time Frame: May 15, 2019 Roll Left & Right (QC): 6 Sit to Lying (QC): 6 Lying-Sitting on Side/Bed(QC): 6 Sit to Stand (QC): 6 Chair/Csn-lt-Nhkof Xfer(QC): 6 Toilet Transfer (QC): 6 Car Transfer (QC): 6 Does the Patient Walk: Yes Walk 10 feet (QC): 6 Walk 50ft with 2 Turns (QC): 6 Walk 150 ft (QC): 6 Walking 10ft on Uneven Surface: 6 1 Step (curb) (QC): 6 4 Steps (QC): 6 12 Steps (QC): 10 Picking up an Object (QC): 88 Does the Pt use WC or Scooter?: No Type: N/A Type: N/A PT Plan Problem List Problem List: Activity Tolerance, Functional Strength, Safety, Balance, Gait, Transfer Treatment/Plan Treatment Plan: Continue Plan of Care Treatment Plan: Bed Mobility, Education, Functional Activity Araceli, Functional Strength, Gait, Safety, Therapeutic Exercise, Transfers Treatment Duration: May 15, 2019 Frequency: 6 times per week Estimated Hrs Per Day: .5 hour per day Patient and/or Family Agrees t: Yes Safety Risks/Education Patient Education: Transfer Techniques, Safety Issues Teaching Recipient: Patient Teaching Methods: Demonstration, Discussion Response to Teaching: Reinforcement Needed Time/GCodes Time In: 1230 Time Out: 1300 Total Billed Treatment Time: 30 Total Billed Treatment visit EVM 15 FA 15 MIGUEL DOBBINS PT May 12, 2019 15:33 POS
[2019-05-12] MEDS: methylPREDNISolone 40 MG/ML (Solu-MEDROL) VIAL IV SCH ×2 (15:34→21:46)
--- NOTE | 2019-05-12 16:09 | NUR ---
IRF Evaluation Order received to evaluate patient for the ARU. Chart review complete and it appears patient ambulated (150ft) and completed [id number] with SBA, as well as displayed independence with ADLs; therefore, patient does not require intensive therapies, at this time. Thank you for this referral.
--- NOTE | 2019-05-12 17:45 | NUR ---
Report given to Anastasia GILL, patient transferred to room 413.
[2019-05-13] VITALS: BP 159/92
[2019-05-13] MEDS ORDERED: WATER (STERILE) FOR INJECTION 20 ML ONE ×2 (01:23→11:10)
[2019-05-13] MEDS ORDERED: CEFEPIME 2 GM (MAXIPIME) VIAL ONE ×2 (01:23→11:09)
[2019-05-13] MEDS: CEFEPIME 2,000 MG/SWFI 20 ML IV PUSH IV SCH ×2 (01:32)
[2019-05-13] MEDS: methylPREDNISolone 40 MG/ML (Solu-MEDROL) VIAL IV SCH ×2 (03:38→08:59)
[2019-05-13 04:00] VITALS: BP 154/88
[2019-05-13] MEDS: inSUlin ASPART (NovoLOG) 1 UNIT/0.01 ML (CHARGE PER UNIT) SQ SCH ×2 (05:21→11:25)
[2019-05-13] MEDS: LACTATED RINGERS 1,000 ML IV SCH (06:12)
[2019-05-13 08:00] VITALS: BP 189/98
[2019-05-13 08:20] LABS: BASOPHILS % (AUTO) 0 % (0-10); EOSINOPHILS % (AUTO) 0 % (0-10); HEMATOCRIT 31 % (40-54); LYMPHOCYTES # (AUTO) 0.9 X 10^3 (1.0-4.0); LYMPHOCYTES % (AUTO) 4 % (12-44); MEAN CORPUSCULAR HEMOGLOBIN 23 PG (25-34); MEAN CORPUSCULAR HGB CONC 33 G/DL (32-36); MEAN CORPUSCULAR VOLUME 72 FL (80-99); MEAN PLATELET VOLUME 9.6 FL (7.4-10.4); MONOCYTES # (AUTO) 0.5 X 10^3 (0.0-1.0); MONOCYTES % (AUTO) 2 % (0-12); NEUTROPHILS % (AUTO) 94 % (42-75); PLATELET COUNT 364 10^3/uL (130-400); RED CELL DISTRIBUTION WIDTH 14.9 % (10.0-14.5); WHITE BLOOD COUNT 22.4 10^3/uL (4.3-11.0)
[2019-05-13 08:41] LABS: ALBUMIN 3.4 GM/DL (3.2-4.5); BILIRUBIN,TOTAL 0.6 MG/DL (0.1-1.0); CALCIUM 9.1 MG/DL (8.5-10.1); CREATININE SERUM 1.52 MG/DL (0.60-1.30); TOTAL PROTEIN 6.7 GM/DL (6.4-8.2)
[2019-05-13] MEDS: ENOXAPARIN 40 MG/0.4 ML (LOVENOX) SYR SC SCH (08:59)
[2019-05-13] MEDS: DOCUSATE SODIUM 100 MG (COLACE) CAP PO SCH (09:00)
[2019-05-13] MEDS ORDERED: PANTOPRAZOLE 40 MG (PROTONIX) TAB PO SCH (09:00)
[2019-05-13] MEDS: SENNA W/DOCUSATE (SENOKOT S) TABLET PO SCH (09:00)
[2019-05-13] MEDS ORDERED: ASPIRIN 81 MG CHEW (CHILDREN'S ASA) PO SCH (09:00)
[2019-05-13] MEDS ORDERED: meTOproloL SUCCINATE 50 MG (TOPROL XL) TAB PO SCH (09:00)
--- NOTE | 2019-05-13 09:02 | Occupational Ther Daily Note ---
OT Current Status-Daily Note Subjective Pt. states that he is feeling better. States that he is hoping to go home today. Appearance Pt. laying in bed. Playing on phone. Agrees to work with OT. Mental Status/Objective Patient Orientation: Person, Place, Time, Situation ADL-Treatment Therapy Code Descriptions/Definitions Functional Callahan Measure: 0=Not Assessed/NA 4=Minimal Assistance 1=Total Assistance 5=Supervision or Setup 2=Maximal Assistance 6=Modified Callahan 3=Moderate Assistance 7=Complete IndependenceSCALE: Activities may be completed with or without assistive devices. 4-Rqfnpgmyny-szttafm completes the activity by him/herself with no assistance from a helper. 5-Set-up or Clean-up Assistance-helper sets up or cleans up; patient completes activity. Alto assists only prior to or following the activity. 4-Supervision or Touching Assistance-helper provides verbal cues and/or touching/steadying and/or contact guard assistance as patient completes activity. Assistance may be provided throughout the activity or intermittently. 3-Partial/Moderate Assistance-helper does LESS THAN HALF the effort. Alto lifts, holds or supports trunk or limbs, but provides less than half the effort. 2-Substantial/Maximal Assistance-helper does MORE THAN HALF the effort. Alto lifts or holds trunk or limbs and provides more than half the effort. 3-Mivbozcai-asbied does ALL the effort. Patient does none of the effort to complete the activity. Or, the assistance of 2 or more helpers is required for the patient to complete the activity. If activity was not attempted, code reason: 7-Patient Refused. 9-Not Applicable-not attempted and the patient did not perform the activity bef ore the current illness, exacerbation or injury. 10-Not Attempted due to Environmental Limitations-(lack of equipment, weather r estraints, etc.). 88-Not Attempted due to Medical Conditions or Safety Concerns. Pt. in bed. Declines needing to go to restroom. Declines getting cleaned up. Declines for OT to remove left over telemetry pads. States that he is hoping to leave today. Pt. is issued and educated on LH sponge to bathe LE, built up foam handles for easier holding of utensils, toilet tongs to make toileting easier, and a button hook to button buttons. OT also put elastic laces into shoes so that pt. could slip on. Pt. declines practicing with shoes or button hook, but states that he knows how they work. Button hook was not issued. OT completes PROM to right wrist/fingers. Noted decreased swelling in right hand and forearm, and slight increased active movement. OT completed gentle PROM in wrist extension, finger flexion, and forearm supination. Completed PROM to pt's tolerance level. All needs are met in room and pt. is given hand therapy sponge to continue attempting with active hand squeezes. Education OT Patient Education: Correct positioning, Exercise program, Home exercise program, Modified ADL techniques, Progress toward Goal/Update tx plan, Purpose of tx/functional activities, Reviewed precautions, Rehab process, Use of adapted equipment Teaching Recipient: Patient Teaching Methods: Demonstration Response to Teaching: Verbalize Understanding, Return Demonstration OT [employer] Supervisor Goals [place] [place] Supervisor Goals Time Frame: May 19, 2019 Eating (QC): 6 Oral Hygiene (QC): 6 Toileting Hygiene (QC): 6 Shower/Bathe Self (QC): 9 Upper Body Dressing (QC): 6 Lower Body Dressing (QC): 6 On/Off Footwear (QC): 6 OT will provide education and demonstration of AE that will assist pt. to be fully independent if willing. OT will also continue providing PROM and AAROM to right UE to assist pt. to achieve baseline mobility. Additional Goals: 1-Demonstrate ADL Tasks, 2-Verbalize Understanding, 3- ImproveStrength/Araceli 1=Demonstrate adherence to instructed precautions during ADL tasks. 2=Patient will verbalize/demonstrate understanding of assistive devices/modifications for ADL. 3=Patient will improve strength/tolerance for activity to enable patient to perform ADL's. OT Education/Plan Problem List/Assessment Assessment: Decreased UE Strength, Edema, Impaired Coordination, Restricted Funct UE ROM Discharge Recommendations Plan/Recommendations: Continue POC Therapy Discharge Recommendati: Post Acute OT Treatment Plan/Plan of Care Treatment,Training & Education: Yes Patient would benefit from OT for education, treatment and training to promote independence in ADL's, mobility, safety and/or upper extremity function for ADL's. Plan of Care: ADL Retraining, Functional Mobility, UE Funct Exercise/Act Treatment Duration: May 19, 2019 Frequency: 5 times per week Estimated Hrs Per Day: .25 hour per day Agreement: Yes Rehab Potential: Good Time/GCodes Start Time: 08:30 Stop Time: 08:45 Total Time Billed (hr/min): 15 Billed Treatment Time 1, EX YESICA CARTWRIGHT OT May 13, 2019 09:02 POS
--- NOTE | 2019-05-13 09:27 | Pulmonary Progress Note ---
PEDRO DAMICO A MEDICAL STUDENT 05/13/19 0927: Subjective Date Seen by a Provider: May 13, 2019 Time Seen by a Provider: 09:22 Sepsis Event Evaluation Height, Weight, BMI Height: 5'10.00" Weight: 280lbs. 1.0oz. 127.904538xw; 41.37 BMI Method:Stated Focused Exam Lactate Level 05/11/19 15:47: Lactic Acid Level 1.86 Exam Exam Vital Signs Date Time Temp Pulse Resp B/P (MAP) Pulse Ox O2 Delivery O2 Flow Rate FiO2 05/13/19 08:00 36.5 88 18 189/98 (128) 98 Room Air 05/13/19 04:00 37.0 91 18 154/88 (110) 94 Room Air 05/13/19 03:38 Room Air 05/13/19 00:00 36.8 87 16 159/92 (114) 94 Room Air 05/12/19 23:50 Room Air 05/12/19 20:00 Room Air 05/12/19 20:00 Room Air 05/12/19 19:21 36.9 80 24 161/95 (117) 95 Room Air 05/12/19 17:47 37.1 89 20 166/92 (116) 97 Room Air 05/12/19 16:00 36.9 85 24 101/60 (74) 100 Room Air 05/12/19 16:00 Room Air 05/12/19 12:54 84 05/12/19 12:00 Room Air 05/12/19 12:00 106/65 (79) 100 Room Air 05/12/19 12:00 36.8 I & O 05/13/19 07:00 Intake Total 3670 ml Output Total 1650 ml Balance 2020 ml Height & Weight Height: 5'10.00" Weight: 280lbs. 1.0oz. 127.180228jg; 41.37 BMI Method:Stated General Appearance: WD/WN, Chronically ill, Mild Distress, Obese HEENT: PERRL/EOMI, Normal ENT Inspection, Pharynx Normal, Moist Mucous Membranes Neck: Full Range of Motion, Normal Inspection, Non Tender Respiratory: Chest Non Tender, Lungs Clear, Normal Breath Sounds, No Accessory Muscle Use, No Respiratory Distress Cardiovascular: Regular Rate, Rhythm, No Edema, No Gallop, No JVD, No Murmur, Normal Peripheral Pulses Capillary Refill: Greater Than 3 Seconds Extremity: Normal Capillary Refill, Normal Inspection, Normal Range of Motion (limited ROM all extremities with contractures of his fingers), Non Tender, No Calf Tenderness, No Pedal Edema Neurologic/Psychiatric: Alert, Oriented x3, No Motor/Sensory Deficits, Normal Mood/Affect, costume draper II-XII Norm as Tested Skin: Normal Color, Warm/Dry Lymphatic: No Adenopathy Results Lab Laboratory Tests 05/11/19 15:00 05/12/19 02:45 05/13/19 08:10 Assessment/Plan Assessment/Plan SIRS r/o Sepsis -Cefepime -Nuñez cultures -negative so far Upper extremity weakness and inflammatory polyarthropathy -Solumedrol Leukocytosis - increasing -cultures negative so far -though secondary to solumedrol Hypokalemia -replace Renal insufficiency -improving -Monitor -IVF Anemia -Monitor Hx of RA Hx of gout PANCHO NANCE DO 05/13/19 1043: Subjective Time Seen by a Provider: 10:39 Subjective/Events-last exam Pt feels better and wants to go home. Exam Exam General Appearance: WD/WN, Chronically ill, Mild Distress, Obese HEENT: PERRL/EOMI, Normal ENT Inspection, Pharynx Normal, Moist Mucous Membranes Neck: Full Range of Motion, Normal Inspection, Non Tender Respiratory: Chest Non Tender, Lungs Clear, Normal Breath Sounds, No Accessory Muscle Use, No Respiratory Distress Cardiovascular: Regular Rate, Rhythm, No Edema, No Gallop, No JVD, No Murmur, Normal Peripheral Pulses Extremity: Normal Capillary Refill, Normal Inspection, Normal Range of Motion (limited ROM all extremities with contractures of his fingers), Non Tender, No Pedal Edema Neurologic/Psychiatric: Alert, Oriented x3, No Motor/Sensory Deficits, Normal Mood/Affect, costume draper II-XII Norm as Tested Skin: Normal Color, Warm/Dry Lymphatic: No Adenopathy Assessment/Plan Assessment/Plan SIRS r/o Sepsis -Cefepime -Nuñez cultures -negative so far Upper extremity weakness and inflammatory polyarthropathy -Solumedrol Leukocytosis - increasing -cultures negative so far -though secondary to solumedrol Hypokalemia -replace Renal insufficiency -improving -Monitor -IVF Anemia -Monitor Hx of RA Hx of gout Pt is ok for discharge from pulmonary standpoint. Supervisory-Addendum Brief Verification & Attestation Participated in pt care: history Personally performed: exam, history Care discussed with: Medical Student Procedures: n/a Verification and Attestation of Medical Student E/M Service A medical student performed and documented this service in my presence. I reviewed and verified all information documented by the medical student and made modifications to such information, when appropriate. I personally performed the physical exam and medical decision making. Pancho Nance, May 13, 2019,10:47 PEDRO DAMICO MEDICAL STUDENT May 13, 2019 09:27 PANCHO ARAMBULA DO May 13, 2019 10:43 POS
[2019-05-13] MEDS ORDERED: CEFEPIME 2,000 MG/SWFI 20 ML IV PUSH IV SCH ×2 (10:00)
[2019-05-13] MEDS ORDERED: OXYC1TAB87 PO (10:01)
[2019-05-13] MEDS ORDERED: PRED10TA22 PO (10:01)
[2019-05-13] MEDS ORDERED: CEFD300C3 PO (10:01)
--- NOTE | 2019-05-13 10:06 | NUR ---
CM DISCHARGE PLANNING: Patient is dismissing home today. Visited with him et his significant other. Miguel reports that he is ready to get home et denies any needs for discharge.
[2019-05-13] MEDS: oxyCODONE/APAP 5/325MG (PERCOCET 5) TABLET PO PRN (11:10)
--- NOTE | 2019-05-13 11:15 | Physician Query Clarification ---
PQ-Uncertain Diagnosis Admission/Discharge Admission Date: May 11, 2019 at 16:00 Discharge Date: The medical record reflects the following clinical scenario: History/Risk Factors: Inflammatory polyarthropathy Rheumatoid arthritis Gout Clinical Findings: WBC 20.0, Bands 0, T 37.5, Pulse 120, Resp 20, BP 108/74, Lactic acid 1.86, blood woojzyxs-cqscnmjesav-dh growth. Treatment: Cefepime, IV steroids. Question: Is Sepsis a clinically valid diagnosis? SIRS/possible sepsis was documented in the H&P and [place] consult with no further documentation in the medical record. Please document a response in Progress Note or Discharge Summary. 1. Yes, clinically valid, condition resolved. 2. No, condition ruled out. 3. Other, with explanation of clinical findings. 4. Undetermined, no explanation for clinical findings. PHYSICIAN RESPONSE Diagnosis clinically valid: No, conditon ruled out Please remember a lack of response to the above will prompt a phone page by CDI/Coding staff. In responding to this query, please exercise your independent professional judgment. The purpose of this communication is to more accurately reflect the complexity of your patients condition. The fact that a question is asked does not imply that any particular answer is desired or expected. Thank you for your timely response to this clarification. Requestors name: Irene Carlson [facility] Phone # ext [phone] or [phone] THIS PHYSICIAN QUERY FORM IS A PERMANENT PART OF THE MEDICAL RECORD IRENE CARLSON May 13, 2019 11:15 DENILSON ARRIETA DO May 13, 2019 21:08 POS
--- NOTE | 2019-05-13 11:24 | Discharge Summary ---
JUAN M PRESTON [facility] 05/13/19 1124: Diagnosis/Chief Complaint Date of Admission May 11, 2019 at 16:00 Date of Discharge Discharge Date: May 13, 2019 Admission Diagnosis Assessment: Inflammatory arthritis acute RA Gout Plan: Steroids IV abx empiric Primary Care Ryley Jones MD Discharge Diagnosis (1) Inflammatory polyarthropathy Status: Acute (2) Rheumatoid arthritis Status: Chronic (3) Lmt-xzzhero-mlrloxhom diabetes mellitus during , antepartum Status: Chronic Discharge Summary Discharge Physical Exam Allergies: Coded Allergies: Penicillins (Verified Allergy, Unknown, 01/31/16) Vitals & I&Os Vital Signs Date Time Temp Pulse Resp B/P (MAP) Pulse Ox O2 Delivery O2 Flow Rate FiO2 05/13/19 08:00 36.5 88 18 189/98 (128) 98 Room Air General Appearance: No Apparent Distress, Obese Respiratory: Chest Non Tender, Lungs Clear, Normal Breath Sounds, No Accessory Muscle Use, No Respiratory Distress Cardiovascular: Regular Rate, Rhythm, No Edema, No Murmur, Normal Peripheral Pulses Extremity: Non Tender, No Calf Tenderness, No Pedal Edema, Swelling (Minor bilateral wrist and hand) Skin: Normal Color, Warm/Dry Neurologic/Psychiatric: Alert, Oriented x3, Normal Mood/Affect Hospital Course Pt was admitted from the ER with joint pain most significant in bilateral elbow, wrists, knees, and ankles with associated hypotension, tachycardia, elevated WBC and ESR. Due to possible septic risk he was admitted to ICU and started on antibiotics, steroids, and IV fluids. He reported a history of RA, but had not seen Rheumatology yet to begin a treatment plan. His pain improved dramatically overnight in all joints except the wrist that still had significant swelling and warmth to touch. He continued the treatment regimen and the following day denied any pain and the swelling warmth of the wrist had decreased. He was discharged home on a short course of steroid taper with an antibiotics, and set up with a close follow up with his PCP and referral to rheumatology to be evaluated. Labs (last 24 hrs) Laboratory Tests 05/12/19 11:17: Glucometer 174H 05/12/19 13:18: Urine Opiates Screen NEGATIVE, Urine Oxycodone Screen POSITIVEH, Urine Methadone Screen NEGATIVE, Urine Propoxyphene Screen NEGATIVE, Urine Barbiturates Screen NEGATIVE, Ur Tricyclic Antidepressants Screen NEGATIVE, Urine Phencyclidine Screen NEGATIVE, Urine Amphetamines Screen NEGATIVE, Urine Methamphetamines Screen NEGATIVE, Urine Benzodiazepines Screen NEGATIVE, Urine Cocaine Screen NEGATIVE, Urine Cannabinoids Screen NEGATIVE 05/12/19 16:07: Glucometer 177H 05/13/19 05:20: Glucometer 173H 05/13/19 08:10: White Blood Count 22.4H, Red Blood Count 4.29L, Hemoglobin 10.0L, Hematocrit 31L , Mean Corpuscular Volume 72L, Mean Corpuscular Hemoglobin 23L, Mean Corpuscular Hemoglobin Concent 33, Red Cell Distribution Width 14.9H, Platelet Count 364, Mean Platelet Volume 9.6, Neutrophils (%) (Auto) 94H, Lymphocytes (%) (Auto) 4L, Monocytes (%) (Auto) 2, Eosinophils (%) (Auto) 0, Basophils (%) (Auto) 0, Neutrophils # (Auto) 21.0H, Lymphocytes # (Auto) 0.9L, Monocytes # (Auto) 0.5, Eosinophils # (Auto) 0.0, Basophils # (Auto) 0.0, Sodium Level 141, Potassium Level 3.0L, Chloride Level 105, Carbon Dioxide Level 19L, Anion Gap 17H, Blood Urea Nitrogen 26H, Creatinine 1.52H, Estimat Glomerular Filtration Rate 59, BUN/Creatinine Ratio 17, Glucose Level 182H, Calcium Level 9.1, Corrected Calcium 9.6, Total Bilirubin 0.6, Aspartate Amino Transf (AST/SGOT) 7, Alanine Aminotransferase (ALT/SGPT) 11, Alkaline Phosphatase 64, Total Protein 6.7, Albumin 3.4 Microbiology 05/11/19 Blood Culture - Preliminary, Resulted No growth 05/11/19 Urine Culture - Final, Complete NO GROWTH Patient resulted labs reviewed. Pending Labs Laboratory Tests 05/13/19 05:20: Glucometer 173 05/13/19 08:10: White Blood Count 22.4, Red Blood Count 4.29, Hemoglobin 10.0, Hematocrit 31, Mean Corpuscular Volume 72, Mean Corpuscular Hemoglobin 23, Mean Corpuscular Hemoglobin Concent 33, Red Cell Distribution Width 14.9, Platelet Count 364, Mean Platelet Volume 9.6, Neutrophils (%) (Auto) 94, Lymphocytes (%) (Auto) 4, Monocytes (%) (Auto) 2, Eosinophils (%) (Auto) 0, Basophils (%) (Auto) 0, Neutrophils # (Auto) 21.0, Lymphocytes # (Auto) 0.9, Monocytes # (Auto) 0.5, Eosinophils # (Auto) 0.0, Basophils # (Auto) 0.0, Sodium Level 141, Potassium Level 3.0, Chloride Level 105, Carbon Dioxide Level 19, Anion Gap 17, Blood Urea Nitrogen 26, Creatinine 1.52, Estimat Glomerular Filtration Rate 59, BUN/Creatinine Ratio 17, Glucose Level 182, Calcium Level 9.1, Corrected Calcium 9.6, Total Bilirubin 0.6, Aspartate Amino Transf (AST/SGOT) 7, Alanine Aminotransferase (ALT/SGPT) 11, Alkaline Phosphatase 64, Total Protein 6.7, Albumin 3.4 Discharge Home Medications: Active Scripts Active Cefdinir 300 Mg Capsule 300 Mg PO BID Prednisone 10 Mg Tab.ds.pk 10 Mg PO DAILY Take 6 tabs(60mg)daily,decrease by 1 tab(10MG)daily. Percocet 5-325 mg Tablet (Oxycodone HCl/Acetaminophen) 1 Each Tablet 1 Tab PO Q4H PRN Reported Metoprolol Succinate 50 Mg Tab.er.24h 50 Mg PO DAILY Metformin HCl 500 Mg Tablet 500 Mg PO BID Potassium Chloride 10 Meq Capsule.er 10 Meq PO BID Pantoprazole Sodium 40 Mg Tablet.dr 40 Mg PO HS Ibuprofen 800 Mg Tablet 800 Mg PO TID PRN Colcrys (Colchicine) 0.6 Mg Tablet 0.6 Mg PO DAILY PRN Shantel Chewable Aspirin (Aspirin) 81 Mg Tab.chew 81 Mg PO DAILY Uloric (Febuxostat) 80 Mg Tablet 80 Mg PO DAILY LAST FILLED #90 07-02-18 Instructions to patient/family Please see electronic discharge instructions given to patient. Clinical Quality Measures DVT/VTE Risk/Contraindication: Risk Factor Score Per Nursin RFS Level Per Nursing on Admit: 3=High CLAUDIAFELIPA DO 05/13/192126: Diagnosis/Chief Complaint Discharge Diagnosis (1) Polyarthritis (2) Inflammatory arthritis (3) Rheumatoid arthritis Status: Chronic (4) HTN (hypertension) Status: Chronic (5) Zjn-vibymdj-aecjlshcv diabetes mellitus during , antepartum Status: Chronic (6) Acute kidney injury superimposed on CKD Status: Acute Discharge Summary Discharge Physical Exam Allergies: Coded Allergies: Penicillins (Verified Allergy, Unknown, 8/10/16) General Appearance: No Apparent Distress, WD/WN Neurologic/Psychiatric: Alert, Oriented x3, No Motor/Sensory Deficits, Normal Mood/Affect Hospital Course Was the Problem List Reviewed?: Yes Hospital course: Pt had a brief hospital course, he was admitted for severe polyarthropathy with edema and severe pain and tachycardia with SIRS, Dr. Gomes was consulted, no evidence of any septic arthritis. He was placed empirically on Cefepime, Pt was placed on high dose IV steroids, Dr. Nance was consulted, tachycardia resolved with IV fluids, supportive care and Pt was deemed stable for discharge with PT on a Prednisone taper dose and follow-up with Dr. Pearson tomorrow to get him into rheumatology. Discussion & Recommendations Discharge Planning: <30 minutes discharge planning Supervisory-Addendum Brief Verification & Attestation Participated in pt care: history, MDM, physical Personally performed: exam, history, MDM, supervision of care Care discussed with: Medical Student Procedures: n/a Results interpretation: Verified all documentation Verification and Attestation of Medical Student E/M Service A medical student performed and documented this service in my presence. I reviewed and verified all information documented by the medical student and made modifications to such information, when appropriate. I personally performed the physical exam and medical decision making. Felipa Solis, May 13, 2019,21:27 Problem Qualifiers (1) Rheumatoid arthritis: Rheumatoid arthritis location: multiple sites Rheumatoid factor presence: with rheumatoid factor Qualified Codes: M05.79 - Rheumatoid arthritis with rheumatoid factor of multiple sites without organ or systems involvement JUAN M PRESTON May 13, 2019 11:24 FELIPA ARRIETA DO May 13, 2019 21:27 POS
--- NOTE | 2019-05-13 11:26 | Physical Therapy Daily Note ---
PT Daily Note-Current Subjective Agrees to )PT. during session, reports he thinks he is going home today and feels ready. Transfers SCALE: Activities may be completed with or without assistive devices. 2-Utpjmljhkw-fvkzyjl completes the activity by him/herself with no assistance from a helper. 5-Set-up or Clean-up Assistance-helper sets up or cleans up; patient completes activity. Keller assists only prior to or following the activity. 4-Supervision or Touching Assistance-helper provides verbal cues and/or touching/steadying and/or contact guard assistance as patient completes activity. Assistance may be provided throughout the activity or intermittently. 3-Partial/Moderate Assistance-helper does LESS THAN HALF the effort. Keller lifts, holds or supports trunk or limbs, but provides less than half the effort. 2-Substantial/Maximal Assistance-helper does MORE THAN HALF the effort. Keller lifts or holds trunk or limbs and provides more than half the effort. 4-Sddfxwlxx-fzujsc does ALL the effort. Patient does none of the effort to complete the activity. Or, the assistance of 2 or more helpers is required for the patient to complete the activity. If activity was not attempted, code reason: 7-Patient Refused. 9-Not Applicable-not attempted and the patient did not perform the activity before the current illness, exacerbation or injury. 10-Not Attempted due to Environmental Limitations-(lack of equipment, weather restraints, etc.). 88-Not Attempted due to Medical Conditions or Safety Concerns. Pt able to get in/out of bed without assist and perform sit/stand transfers without assist. he is slow with transition movement but able to complete. Gait Training Does the Patient Walk?: Yes Distance: 250 ft Gait Assistive Device: None Pt walks 250 ft without AD indep with assist to manage the IV pole. Pt walks with a wide MARVA and feet in ER with decreased step length; however, he is steady and at his usual gait pattern--per his report. Assessment Current Status: Good Progress Pt is at an indep level of mobility. Will dc from PT as he does not need skilled intervention for mobilty. PT Longterm Goals Longterm Goals PT Longterm Goals Time Frame: May 15, 2019 Roll Left & Right (QC): 6 Sit to Lying (QC): 6 Lying-Sitting on Side/Bed(QC): 6 Sit to Stand (QC): 6 Chair/Bvg-cy-Fgclf Xfer(QC): 6 Toilet Transfer (QC): 6 Car Transfer (QC): 6 Does the Patient Walk: Yes Walk 10 feet (QC): 6 Walk 50ft with 2 Turns (QC): 6 Walk 150 ft (QC): 6 Walking 10ft on Uneven Surface: 6 1 Step (curb) (QC): 6 4 Steps (QC): 6 12 Steps (QC): 10 Picking up an Object (QC): 88 Does the Pt use WC or Scooter?: No Type: N/A Type: N/A Goals met to a satisfactory level. PT Plan Treatment/Plan Treatment Plan: Discontinue PT, goals met Treatment Plan: Bed Mobility, Education, Functional Activity Araceli, Functional Strength, Gait, Safety, Therapeutic Exercise, Transfers Treatment Duration: May 15, 2019 Frequency: 6 times per week Estimated Hrs Per Day: .5 hour per day Patient and/or Family Agrees t: Yes Discharge Recommendations Plan DC; indep with mobility Time/GCodes Time In: 930 Time Out: 943 Total Billed Treatment Time: 13 Total Billed Treatment visit GT 13 MIGUEL DOBBINS PT May 13, 2019 11:26 POS
[2019-05-13 12:00] VITALS: BP 147/95
[2019-05-13 13:15] VITALS: BP 147/95
== END 2019-05-13 13:15 | disposition home or self-care (01) | DRG 554 ==
LOC: EDUNIT# 14:34 → ER 14:34 → ICU 16:00 → 4TH 05-12 17:38
PROVIDERS: ADMIT Internal Medicine; ATTEND Internal Medicine
DX: M06.4 Inflammatory polyarthropathy (principal); M05.79 Rheumatoid arthritis with rheumatoid factor of multiple sites without organ or systems involvement; M10.9 Gout, unspecified; E66.9 Obesity, unspecified; Z68.41 Body mass index [BMI] 40.0-44.9, adult; D64.9 Anemia, unspecified; N17.9 Acute kidney failure, unspecified; I12.9 Hypertensive chronic kidney disease with stage 1 through stage 4 chronic kidney disease, or unspecified chronic kidney disease; N18.9 Chronic kidney disease, unspecified; F17.220 Nicotine dependence, chewing tobacco, uncomplicated; E11.9 Type 2 diabetes mellitus without complications; G47.30 Sleep apnea, unspecified; E78.00 Pure hypercholesterolemia, unspecified; K21.9 Gastro-esophageal reflux disease without esophagitis; M19.91 Primary osteoarthritis, unspecified site; E04.1 Nontoxic single thyroid nodule; F41.9 Anxiety disorder, unspecified; F32.9 Major depressive disorder, single episode, unspecified; E87.6 Hypokalemia; Z87.11 Personal history of peptic ulcer disease
CPT/HCPCS: 36415; 71045; 80053; 80306; 81000; 82962; 83605; 84550; 85007; 85025; 85027; 85652; 86141; 87040; 87088; 96361; 96374

== ENCOUNTER → 2020-05-04 | Outpatient (CLI) | payer MEDICARE, OTHER ==
[~2020-05-04] MED LIST changes: +ASPI-1238 PO; -ASPI-983 PO; +CEFD300C3 PO; +COLC0.6T53 PO; -MAGN400T6 PO; +MAGN400T8 PO; +METO50TA7 PO; +MULT-567 PO; -MULT1TAB69 PO; -OMEP20CA13 PO; +OMEP20CA18 PO; +OMEP40CA27 PO; -OMEP40CA36 PO; +OXYC1TAB87 PO; -PANT40TA3 PO; +PANT40TA52 PO; +PRED10TA22 PO; -TRAM50TA2 PO; +TRM50T PO
== END ==
LOC: CARD 14:49
PROVIDERS: ATTEND Nurse Practitioner Family
DX: I10 Essential (primary) hypertension (principal); E78.5 Hyperlipidemia, unspecified
CPT/HCPCS: 93306

== ENCOUNTER → 2020-05-12 | Outpatient (CLI) | payer MEDICARE, OTHER ==
[~2020-05-12] MED LIST changes: -COLC0.6T56 PO; +COLC0.6T59 PO
[2020-05-12 08:51] LABS: BASOPHILS # (AUTO) 0.1 10^3/uL (0.0-0.1); BASOPHILS % (AUTO) 0 % (0-10); EOSINOPHILS # (AUTO) 0.3 10^3/uL (0.0-0.3); EOSINOPHILS % (AUTO) 2 % (0-10); HEMATOCRIT 33 % (40-54); HEMOGLOBIN 10.2 g/dL (13.3-17.7); LYMPHOCYTES # (AUTO) 3.4 10^3/uL (1.0-4.0); LYMPHOCYTES % (AUTO) 31 % (12-44); MEAN CORPUSCULAR HEMOGLOBIN 25 pg (25-34); MEAN CORPUSCULAR HGB CONC 31 g/dL (32-36); MEAN CORPUSCULAR VOLUME 79 fL (80-99); MEAN PLATELET VOLUME 8.9 fL (9.0-12.2); MONOCYTES # (AUTO) 0.8 10^3/uL (0.0-1.0); MONOCYTES % (AUTO) 7 % (0-12); NEUTROPHILS # (AUTO) 6.7 10^3/uL (1.8-7.8); NEUTROPHILS % (AUTO) 60 % (42-75); PLATELET COUNT 364 10^3/uL (130-400); WHITE BLOOD COUNT 11.3 10^3/uL (4.3-11.0)
[2020-05-12 09:12] LABS: ALBUMIN 4.2 GM/DL (3.2-4.5); BILIRUBIN,TOTAL 0.5 MG/DL (0.1-1.0); CALCIUM 9.6 MG/DL (8.5-10.1); CREATININE SERUM 3.22 MG/DL (0.60-1.30); MAGNESIUM 2.4 MG/DL (1.6-2.4); POTASSIUM 4.6 MMOL/L (3.6-5.0); TOTAL PROTEIN 7.2 GM/DL (6.4-8.2)
== END ==
LOC: LAB 08:28
PROVIDERS: ATTEND Nurse Practitioner Family
DX: I10 Essential (primary) hypertension (principal); E78.5 Hyperlipidemia, unspecified
CPT/HCPCS: 36415; 80053; 80061; 83735; 84443; 85025

== ENCOUNTER → 2020-05-22 | Outpatient (CLI) | payer MEDICARE ==
[2020-05-22 10:17] LABS: CALCIUM 10.3 MG/DL (8.5-10.1); CREATININE SERUM 2.98 MG/DL (0.60-1.30); POTASSIUM 4.5 MMOL/L (3.6-5.0)
== END ==
LOC: LAB 09:25
PROVIDERS: ATTEND Nurse Practitioner Family
DX: N18.32 Chronic kidney disease, stage 3b (principal)
CPT/HCPCS: 36415; 80048

== ENCOUNTER → 2020-07-17 | Outpatient (CLI) | payer MEDICARE ==
[~2020-07-17] MED LIST changes: -ESCI10TA55 PO; +ESCI10TA64 PO
[2020-07-17 11:35] LABS: ALBUMIN 4.3 GM/DL (3.2-4.5); CALCIUM 10.1 MG/DL (8.5-10.1); CREATININE SERUM 3.83 MG/DL (0.60-1.30); PHOSPHORUS 4.9 MG/DL (2.3-4.7); POTASSIUM 4.6 MMOL/L (3.6-5.0)
== END ==
LOC: LAB 10:54
PROVIDERS: ATTEND Internal Medicine Nephrology
DX: N18.4 Chronic kidney disease, stage 4 (severe) (principal)
CPT/HCPCS: 36415; 80069

== ENCOUNTER → 2020-07-21 | Outpatient (CLI) | payer MEDICARE ==
[2020-07-21 12:01] LABS: ALBUMIN 4.4 GM/DL (3.2-4.5)
[2020-07-21 12:02] LABS: POTASSIUM 4.5 MMOL/L (3.6-5.0)
[2020-07-21 12:03] LABS: CALCIUM 10.2 MG/DL (8.5-10.1)
[2020-07-21 12:07] LABS: CREATININE SERUM 3.14 MG/DL (0.60-1.30)
== END ==
LOC: LAB 11:37
PROVIDERS: ATTEND Internal Medicine Nephrology
DX: N18.4 Chronic kidney disease, stage 4 (severe) (principal)
CPT/HCPCS: 36415; 80069

== ENCOUNTER → 2020-08-23 | Outpatient (CLI) | payer MEDICARE ==
[~2020-08-23] MED LIST changes: +ESCI-2 PO; -ESCI10TA64 PO; -LISI10TA2 PO; +LISI10TA25 PO
[2020-08-23 09:40] LABS: BASOPHILS % (AUTO) 0 % (0-10); EOSINOPHILS # (AUTO) 0.2 10^3/uL (0.0-0.3); EOSINOPHILS % (AUTO) 2 % (0-10); HEMATOCRIT 29 % (40-54); HEMOGLOBIN 9.2 g/dL (13.3-17.7); LYMPHOCYTES # (AUTO) 2.2 10^3/uL (1.0-4.0); LYMPHOCYTES % (AUTO) 21 % (12-44); MEAN CORPUSCULAR HEMOGLOBIN 25 pg (25-34); MEAN CORPUSCULAR HGB CONC 31 g/dL (32-36); MEAN CORPUSCULAR VOLUME 78 fL (80-99); MEAN PLATELET VOLUME 9.3 fL (9.0-12.2); MONOCYTES # (AUTO) 0.6 10^3/uL (0.0-1.0); MONOCYTES % (AUTO) 5 % (0-12); NEUTROPHILS # (AUTO) 7.9 10^3/uL (1.8-7.8); NEUTROPHILS % (AUTO) 72 % (42-75); PLATELET COUNT 393 10^3/uL (130-400)
[2020-08-23 09:48] LABS: POTASSIUM 4.2 MMOL/L (3.6-5.0)
[2020-08-23 09:49] LABS: CALCIUM 9.7 MG/DL (8.5-10.1)
--- NOTE | 2020-08-23 09:51 | Diagnostic Imaging Report ---
PROCEDURE: US Renal Bilateral. TECHNIQUE: Multiple real-time grayscale images were obtained over the kidneys in various projections bilaterally. INDICATION: Chronic kidney disease. COMPARISON: There are no prior renal ultrasound examinations available for comparison. FINDINGS: The study was technically difficult due to the patient's body habitus and due to overlying bowel gas. Both kidneys were identified. The right kidney measures 10.7 x 4.6 x 4.1 cm and the left kidney is estimated to be 10.5 x 5.6 x 4.5 cm. There is no evidence for solid renal mass or for hydronephrosis of either kidney. There does seem to be roughly 1 cm hypoechoic area in the superior pole of the right kidney. I suspect this is a cyst. The renal cortices are normal in thickness and echogenicity. The urinary bladder is not well distended and difficult to assess. There is no obvious bladder abnormality evident. Both ureteral jets were noted. IMPRESSION: 1. There is no evidence for a solid renal mass or for hydronephrosis of either kidney. 2. The renal cortices are normal in thickness and echogenicity. 3. There is no obvious bladder abnormality evident. Dictated by: Dictated on workstation # [id number]
[2020-08-23 09:53] LABS: PHOSPHORUS 4.1 MG/DL (2.3-4.7)
[2020-08-23 09:54] LABS: CREATININE SERUM 2.08 MG/DL (0.60-1.30)
[2020-08-23 09:56] LABS: URIC ACID 5.7 MG/DL (2.6-7.2)
== END ==
LOC: RAD 08:54
PROVIDERS: ATTEND Internal Medicine Nephrology
DX: N18.4 Chronic kidney disease, stage 4 (severe) (principal); I95.89 Other hypotension; Z79.1 Long term (current) use of non-steroidal anti-inflammatories (NSAID)
CPT/HCPCS: 36415; 76770; 80069; 82306; 82570; 83970; 84156; 84550; 85025

== ENCOUNTER 2020-09-18 18:40 | Observation (INO) | payer MEDICARE ==
[~2020-09-18] VITALS: Ht 177.8 cm; Wt 121.6 kg
[2020-09-18 19:04] LABS: BASOPHILS # (AUTO) 0.1 10^3/uL (0.0-0.1); BASOPHILS % (AUTO) 0 % (0-10); EOSINOPHILS # (AUTO) 0.1 10^3/uL (0.0-0.3); EOSINOPHILS % (AUTO) 1 % (0-10); HEMATOCRIT 30 % (40-54); HEMOGLOBIN 9.4 g/dL (13.3-17.7); LYMPHOCYTES % (AUTO) 12 % (12-44); MEAN CORPUSCULAR HEMOGLOBIN 24 pg (25-34); MEAN CORPUSCULAR HGB CONC 31 g/dL (32-36); MEAN CORPUSCULAR VOLUME 76 fL (80-99); MEAN PLATELET VOLUME 9.1 fL (9.0-12.2); MONOCYTES # (AUTO) 1.1 10^3/uL (0.0-1.0); MONOCYTES % (AUTO) 6 % (0-12); NEUTROPHILS # (AUTO) 13.3 10^3/uL (1.8-7.8); NEUTROPHILS % (AUTO) 80 % (42-75); PLATELET COUNT 488 10^3/uL (130-400); WHITE BLOOD COUNT 16.7 10^3/uL (4.3-11.0)
[2020-09-18 19:19] LABS: ALBUMIN 3.9 GM/DL (3.2-4.5); INR 1.2 (0.8-1.4); POTASSIUM 4.1 MMOL/L (3.6-5.0); PROTHROMBIN TIME PATIENT 15.4 SEC (12.2-14.7)
[2020-09-18 19:20] LABS: CALCIUM 10.4 MG/DL (8.5-10.1)
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
[2020-09-18 19:22] LABS: TOTAL PROTEIN 8.5 GM/DL (6.4-8.2)
[2020-09-18 19:23] LABS: BILIRUBIN,TOTAL 0.4 MG/DL (0.1-1.0)
[2020-09-18 19:25] LABS: CREATININE SERUM 2.14 MG/DL (0.60-1.30)
[2020-09-18 19:28] LABS: MAGNESIUM 2.9 MG/DL (1.6-2.4)
--- NOTE | 2020-09-18 19:33 | Diagnostic Imaging Report ---
PROCEDURE: CT head without contrast. TECHNIQUE: Multiple contiguous axial images were obtained through the brain without the use of intravenous contrast. Auto Exposure Controls were utilized during the CT exam to meet ALARA standards for radiation dose reduction. INDICATION: Increasing weakness and fatigue for the last 2-3 months. EXAMINATION: CT brain 09/18/2020 FINDINGS: Multiple axial images of the brain without contrast. There is no evidence for acute hemorrhage or infarct. There is no mass, mass effect, midline shift or hydrocephalus. The paranasal sinuses and mastoid air cells demonstrate no acute abnormality. IMPRESSION: No acute intracranial process. Dictated by: Dictated on workstation # [id number]
[2020-09-18 19:35] LABS: CREATINE KINASE MB 0.6 NG/ML (<6.6)
--- NOTE | 2020-09-18 19:37 | Diagnostic Imaging Report ---
INDICATION: Increasing weakness and fatigue x2-3 months. EXAMINATION: Chest 09/18/2020 COMPARISON: 05/12/2019 FINDINGS: Right hemidiaphragm is elevated similar to previous imaging. No infiltrates or effusions. Heart and pulmonary vasculature appear stable. No pneumothorax. IMPRESSION: 1. Stable chest. No acute cardiopulmonary process. Dictated by: Dictated on workstation # [id number]
[2020-09-18 19:39] LABS: NEUTROPHILS % (MANUAL) 78 %
[2020-09-18 19:40] LABS: ANISOCYTOSIS SLIGHT; BAND NEUTROPHILS 0 %; BASOPHILS % (MANUAL) 0 %; ELLIPT/OVALOCYTES SLIGHT; EOSINOPHILS % (MANUAL) 0 %; ERYTHROCYTE SEDIMENTATION RATE > 140 MM/HR (0-30); HYPOCHROMASIA SLIGHT; LYMPHOCYTES % (MANUAL) 17 %; MONOCYTES % (MANUAL) 5 %; POLYCHROMASIA SLIGHT; ROULEAUX SLIGHT; TARGET CELLS SLIGHT
[2020-09-18 19:48] LABS: TSH (THYROID ANALYZER) 2.02 UIU/ML (0.35-4.94)
[2020-09-18 19:55] LABS: BILIRUBIN,URINE NEGATIVE (NEGATIVE); CLARITY,URINE CLEAR; COLOR,URINE YELLOW; GLUCOSE, URINE (UA) NEGATIVE (NEGATIVE); KETONES,URINE NEGATIVE (NEGATIVE); LEUKOCYTE ESTERASE ,URINE NEGATIVE (NEGATIVE); NITRITE,URINE NEGATIVE (NEGATIVE); PROTEIN,URINE NEGATIVE (NEGATIVE)
[2020-09-18] MEDS ORDERED: methylPREDNISolone 125 MG (Solu-MEDROL) VIAL IVP ONE (20:00)
[2020-09-18] MEDS ORDERED: fentaNYL INJ 100 MCG/2 ML AMP IVP ONE (20:00)
[2020-09-18 20:04] LABS: BACTERIA,URINE NEGATIVE /HPF; SQUAMOUS EPITHELIAL CELL,UR RARE /HPF
[2020-09-18 20:13] LABS: AMPHETAMINE SCREEN, URINE NEGATIVE (NEGATIVE); BARBITURATE SCREEN URINE NEGATIVE (NEGATIVE); BENZODIAZEPINES SCREEN URINE NEGATIVE (NEGATIVE); CANNABINOID SCREEN, URINE NEGATIVE (NEGATIVE); COCAINE SCREEN URINE NEGATIVE (NEGATIVE); METHADONE STAT NEGATIVE (NEGATIVE); METHAMPHETAMINE SCREEN URINE S NEGATIVE (NEGATIVE); OPIATE SCREEN URINE POSITIVE (NEGATIVE); OXYCODONE STAT NEGATIVE (NEGATIVE); PROPOXYPHENE STAT NEGATIVE (NEGATIVE); TRICYCLIC ANTIDEPRESSANTS SCRE NEGATIVE (NEGATIVE)
[2020-09-18 20:25] LABS: URIC ACID 5.7 MG/DL (2.6-7.2)
[2020-09-18 20:28] VITALS: BP 150/80
[2020-09-18] MEDS ORDERED: fentaNYL INJ 100 MCG/2 ML AMP IVP PRN (21:45)
[2020-09-18] MEDS: 1/2 NS IV SOLUTION 1,000 ML IV SCH (21:56)
[2020-09-19] MEDS: methylPREDNISolone 125 MG (Solu-MEDROL) VIAL IVP SCH ×2 (00:18→05:52)
[2020-09-19 00:45] VITALS: BP 132/70
[2020-09-19 04:00] VITALS: BP 135/74
[2020-09-19] MEDS: 1/2 NS IV SOLUTION 1,000 ML IV SCH (05:52)
[2020-09-19 06:02] LABS: BASOPHILS % (AUTO) 0 % (0-10); EOSINOPHILS % (AUTO) 0 % (0-10); HEMATOCRIT 27 % (40-54); HEMOGLOBIN 8.4 g/dL (13.3-17.7); LYMPHOCYTES # (AUTO) 1.4 10^3/uL (1.0-4.0); LYMPHOCYTES % (AUTO) 7 % (12-44); MEAN CORPUSCULAR HEMOGLOBIN 23 pg (25-34); MEAN CORPUSCULAR HGB CONC 31 g/dL (32-36); MEAN CORPUSCULAR VOLUME 76 fL (80-99); MEAN PLATELET VOLUME 9.7 fL (9.0-12.2); MONOCYTES # (AUTO) 0.1 10^3/uL (0.0-1.0); MONOCYTES % (AUTO) 1 % (0-12); NEUTROPHILS # (AUTO) 17.1 10^3/uL (1.8-7.8); NEUTROPHILS % (AUTO) 91 % (42-75); PLATELET COUNT 477 10^3/uL (130-400); WHITE BLOOD COUNT 18.7 10^3/uL (4.3-11.0)
[2020-09-19 06:06] LABS: ALBUMIN 3.6 GM/DL (3.2-4.5); POTASSIUM 4.2 MMOL/L (3.6-5.0)
[2020-09-19 06:07] LABS: CALCIUM 10.1 MG/DL (8.5-10.1)
[2020-09-19 06:10] LABS: BILIRUBIN,TOTAL 0.4 MG/DL (0.1-1.0)
[2020-09-19 06:12] LABS: CREATININE SERUM 2.05 MG/DL (0.60-1.30)
[2020-09-19] MEDS: inSUlin ASPART (NovoLOG) 1 UNIT/0.01 ML (CHARGE PER UNIT) SC SCH ×2 (06:19→11:28)
[2020-09-19 07:20] VITALS: BP 138/76
[2020-09-19] MEDS ORDERED: ENOXAPARIN 40 MG/0.4 ML (LOVENOX) SYR SC SCH (09:00)
[2020-09-19] MEDS ORDERED: GLIP5TAB13 PO (09:55)
[2020-09-19] MEDS ORDERED: SERT-414 PO (09:55)
[2020-09-19] MEDS ORDERED: INDO25CA99 PO (09:55)
[2020-09-19] MEDS ORDERED: LURA120T PO (09:55)
[2020-09-19] MEDS ORDERED: TRAZ-227 PO (09:55)
[2020-09-19] MEDS ORDERED: ACHD5005 PO (09:55)
[2020-09-19] MEDS ORDERED: MULT-1061 PO (09:55)
[2020-09-19] MEDS ORDERED: CHOL100045 PO (09:55)
[2020-09-19] MEDS ORDERED: AMLO-250 PO (09:55)
[2020-09-19] MEDS ORDERED: ALLO300T2 PO (09:55)
[2020-09-19] MEDS ORDERED: PRAV40TA2 PO (09:55)
[2020-09-19] MEDS ORDERED: FERR-84 PO (09:55)
[2020-09-19] MEDS ORDERED: PRD10T PO (09:58)
--- NOTE | 2020-09-19 10:10 | Physical Therapy Evaluation ---
PT Evaluation-General Medical Diagnosis Admission Date Sep 18, 2020 at 19:45 Medical Diagnosis: inflammatory arthritis/gout Onset Date: Sep 18, 2020 Therapy Diagnosis Therapy Diagnosis: debility/weakness Height/Weight Height (Feet): 5 Height (Inches): 10.00 Weight (Pounds): 280 Weight (Ounces): 1.0 Precautions Precautions/Isolations: Standard Precautions Referral Physician: Kiran Reason for Referral: Evaluation/Treatment Medical History Pertinent Medical History: Arthritis, DM, GERD, HTN, Rheumatoid Arthritis, Smoking Additional Medical History morbid obesity Current History EMS secondary to weakness and fatigue x 2-3 months Reviewed History: Yes Social History Home: Single Level Current Living Status: Spouse Entry Into Home: Level Entry Prior Prior Level of Function SCALE: Activities may be completed with or without assistive devices. 4-Uqwsrjsayb-tcoqgue completes the activity by him/herself with no assistance from a helper. 5-Set-up or Clean-up Assistance-helper sets up or cleans up; patient completes activity. [place] assists only prior to or following the activity. 4-Supervision or Touching Assistance-helper provides verbal cues and/or touching/steadying and/or contact guard assistance as patient completes activity. Assistance may be provided throughout the activity or intermittently. 3-Partial/Moderate Assistance-helper does LESS THAN HALF the effort. [place] lifts, holds or supports trunk or limbs, but provides less than half the effort. 2-Substantial/Maximal Assistance-helper does MORE THAN HALF the effort. [place] lifts or holds trunk or limbs and provides more than half the effort. 3-Xebtvrrao-cetggj does ALL the effort. Patient does none of the effort to complete the activity. Or, the assistance of 2 or more helpers is required for the patient to complete the activity. If activity was not attempted, code reason: 7-Patient Refused. 9-Not Applicable-not attempted and the patient did not perform the activity before the current illness, exacerbation or injury. 10-Not Attempted due to Environmental Limitations-(lack of equipment, weather restraints, etc.). 88-Not Attempted due to Medical Conditions or Safety Concerns. Bed Mobility: 5 Transfers (B,C,W/C): 5 Gait: 5 Indoor Mobility (Ambulation): Independent Prior Devices Use: Walker (PRN) PT Evaluation-Current Subjective Patient agrees to PT. Objective Patient Orientation: Normal For Age Attachments: IV ROM/Strength ROM Lower Extremities bilateral LE WFL (noted RA joints) Strength Lower Extremities 4-/5 grossly bilateral LE Integumentary/Posture Integumentary refer to nursing notes Bowel Incontinence: No Bladder Incontinence: No Posture WFL Neuromuscular (Tone, Coordination, Reflexes) grossly intact Sensory Vision: Functional Hearing: Functional Transfers Roll Left to Right (QC): 6 Sit to Lying (QC): 6 Lying to Sitting/Side of Bed(Q: 6 Sit to Stand (QC): 4 Chair/Iuh-fm-Olndg Xfer(QC): 4 SBA for safety Gait Does the Patient Walk?: Yes Mode of Locomotion: Walk Anticipated Mode of Locomotion: Walk Walk 10 feet (QC): 4 Walk 50 ft with 2 Turns(QC): 4 Walk 150 ft (QC): 4 Distance: 225' Gait Assistive Device: FWW Comments/Gait Description arthritic gait sequence Balance Sitting Static: Normal Sitting Dynamic: Normal Standing Static: Good Standing Dynamic: Good Picking up an Object (QC): 9 (reports spouse assist with all picking up objects, donning socks/shoes and pants.) Assessment/Needs 55 y.o. male, will benefit from skilled PT to address functional strength and mobility to improve current LOF to safely return to home with spouse. Rehab Potential: Fair Post Rehab Potential-Barriers: compliance PT Senior Care Goals Senior Care Goals PT Senior Care Goals Time Frame: Sep 29, 2020 Roll Left & Right (QC): 6 Sit to Lying (QC): 6 Lying-Sitting on Side/Bed(QC): 6 Sit to Stand (QC): 6 Chair/Vng-wr-Qucsx Xfer(QC): 6 Toilet Transfer (QC): 6 Does the Patient Walk: Yes Walk 10 feet (QC): 6 Walk 50ft with 2 Turns (QC): 6 Walk 150 ft (QC): 6 PT Plan Problem List Problem List: Activity Tolerance, Safety, Gait, Transfer, Bed Mobility Treatment/Plan Treatment Plan: Continue Plan of Care Treatment Plan: Bed Mobility, Education, Functional Activity Araceli, Functional Strength, Gait, Safety, Therapeutic Exercise, Transfers Treatment Duration: Sep 29, 2020 Frequency: 6 times per week Estimated Hrs Per Day: .25 hour per day Patient and/or Family Agrees t: Yes Discharge Recommendations Therapy Discharge Recommendati: Home & Family, Post Acute PT Time/GCodes Time In: 844 Time Out: 857 Total Billed Treatment Time: 13 Total Billed Treatment 1 visit EVModC 13 min MURALI LEES PT Sep 19, 2020 10:10
--- NOTE | 2020-09-19 11:26 | Short Stay Summary ---
HPI History of Present Illness: 55 yo male presented to ER due to severe pain in both knees and calves to the point he could not get out of bed. He has a history of rheumatoid arthritis and sees Rheumatology but states they do not think he has RA, and he does have a referral for a second opinion. He does have history of severe gout as well with multiple tophi. He has chronic hand swelling and deformities as well as ankles and states these are at baseline for him. This morning he states he feels great and ready to go home. He walked with a walker with PT, and he has a walker at home that he uses as needed. He had his first COVID vaccine (moderna) a week prior. He states he had something similar to this occur a few years ago. Source: patient Date seen by provider: Sep 19, 2020 Time Seen by Provider: 09:20 Attending Physician Yamel Beck MD PCP Edgardo Bates MD Consult Date of Admission Sep 18, 2020 at 19:45 Home Medications Home Medications Reviewed patient Home Medication Reconciliation performed by pharmacy medication reconciliations fire control technician g and/or nursing. Patients Allergies have been reviewed. Allergies Coded Allergies: Penicillins (Verified Allergy, Unknown, 01/31/16) MVW-[place]-Yjvyeu Hx Patient Social History Drug of Choice: DENIES Smoking Status: Former Smoker Former smoker/When Quit: Jan 12, 1986 Recent Hopitalizations: No Alcohol Use?: No Have you traveled recently?: No Immunizations Up To Date Tetanus Booster (TDap): Unknown Date of Pneumonia Vaccine: Aug 08, 2013 Past Medical History PMHx: Gouty Arthritis DM HTN HLD FAM GERD Sleep apnea Chronic pain Schizoprenia Chronic kidney disease SurgHx: Tonsillectomy Cholecystectomy Family Medical History Family History: Diabetes mellitus 19 MOTHER PATERNAL GRANDFATHER Neoplasm 19 FATHER (THROAT CANCER-SMOKER) Review of Systems (CHC) Constitutional: No fever EENTM: No nose congestion, No throat pain Respiratory: No cough, No short of breath Gastrointestinal: No abdominal pain, No constipation, No diarrhea, No nausea, No vomiting Genitourinary: No dysuria Musculoskeletal: joint pain, muscle pain Skin: No rash Psychiatric/Neurological: No Symptoms Reported Reviewed Test Results Reviewed Test Results Lab Laboratory Tests Test 09/18/20 18:53 09/18/20 18:56 09/18/20 19:50 09/18/20 20:51 Range/Units Glucometer 82 78 70-110 MG/DL White Blood Count 16.7 H 4.3-11.0 10^3/uL Red Blood Count 3.96 L 4.30-5.52 10^6/uL Hemoglobin 9.4 L 13.3-17.7 g/dL Hematocrit 30 L 40-54 % Mean Corpuscular Volume 76 L 80-99 fL Mean Corpuscular Hemoglobin 24 L 25-34 pg Mean Corpuscular Hemoglobin Concent 31 L 32-36 g/dL Red Cell Distribution Width 14.8 H 10.0-14.5 % Platelet Count 488 H 130-400 10^3/uL Mean Platelet Volume 9.1 9.0-12.2 fL Immature Granulocyte % (Auto) 1 % Neutrophils (%) (Auto) 80 H 42-75 % Lymphocytes (%) (Auto) 12 12-44 % Monocytes (%) (Auto) 6 0-12 % Eosinophils (%) (Auto) 1 0-10 % Basophils (%) (Auto) 0 0-10 % Neutrophils # (Auto) 13.3 H 1.8-7.8 10^3/uL Lymphocytes # (Auto) 2.0 1.0-4.0 10^3/uL Monocytes # (Auto) 1.1 H 0.0-1.0 10^3/uL Eosinophils # (Auto) 0.1 0.0-0.3 10^3/uL Basophils # (Auto) 0.1 0.0-0.1 10^3/uL Immature Granulocyte # (Auto) 0.1 0.0-0.1 10^3/uL Neutrophils % (Manual) 78 % Lymphocytes % (Manual) 17 % Monocytes % (Manual) 5 % Eosinophils % (Manual) 0 % Basophils % (Manual) 0 % Band Neutrophils 0 % Polychromasia SLIGHT Hypochromasia SLIGHT Anisocytosis SLIGHT Macrocytosis SLIGHT Target Cells SLIGHT Elliptocytes SLIGHT Rouleau SLIGHT Erythrocyte Sedimentation Rate > 140 H 0-30 MM/HR Prothrombin Time 15.4 H 12.2-14.7 SEC INR Comment 1.2 0.8-1.4 Activated Partial Thromboplast Time 51 H 24-35 SEC Sodium Level 138 135-145 MMOL/L Potassium Level 4.1 3.6-5.0 MMOL/L Chloride Level 100 98-107 MMOL/L Carbon Dioxide Level 23 21-32 MMOL/L Anion Gap 15 H 5-14 MMOL/L Blood Urea Nitrogen 32 H 7-18 MG/DL Creatinine 2.14 H 0.60-1.30 MG/DL Estimat Glomerular Filtration Rate 39 BUN/Creatinine Ratio 15 Glucose Level 94 70-105 MG/DL Uric Acid 5.7 2.6-7.2 MG/DL Calcium Level 10.4 H 8.5-10.1 MG/DL Corrected Calcium 10.5 H 8.5-10.1 MG/DL Magnesium Level 2.9 H 1.6-2.4 MG/DL Total Bilirubin 0.4 0.1-1.0 MG/DL Aspartate Amino Transf (AST/SGOT) 25 5-34 U/L Alanine Aminotransferase (ALT/SGPT) 34 0-55 U/L Alkaline Phosphatase 178 H 40-136 U/L Ammonia 14 11-32 UMOL/L Total Creatine Kinase 62 30-200 U/L Creatine Kinase MB 0.6 <6.6 NG/ML Myoglobin 84.0 10.0-92.0 NG/ML C-Reactive Protein High Sensitivity 33.24 H 0.00-0.50 MG/DL Total Protein 8.5 H 6.4-8.2 GM/DL Albumin 3.9 3.2-4.5 GM/DL TSH [place] Testing 2.02 0.35-4.94 UIU/ML Urine Color YELLOW Urine Clarity CLEAR Urine pH 5.0 5-9 Urine Specific [place] 1.010 L 1.016-1.022 Urine Protein NEGATIVE NEGATIVE Urine Glucose (UA) NEGATIVE NEGATIVE Urine Ketones NEGATIVE NEGATIVE Urine Nitrite NEGATIVE NEGATIVE Urine Bilirubin NEGATIVE NEGATIVE Urine Urobilinogen 0.2 < = 1.0 MG/DL Urine Leukocyte Esterase NEGATIVE NEGATIVE Urine RBC (Auto) NEGATIVE NEGATIVE Urine RBC NONE /HPF Urine WBC NONE /HPF Urine Squamous Epithelial Cells RARE /HPF Urine Crystals NONE /LPF Urine Bacteria NEGATIVE /HPF Urine Casts NONE /LPF Urine Mucus NEGATIVE /LPF Urine Culture Indicated NO Urine Opiates Screen POSITIVE H NEGATIVE Urine Oxycodone Screen NEGATIVE NEGATIVE Urine Methadone Screen NEGATIVE NEGATIVE Urine Propoxyphene Screen NEGATIVE NEGATIVE Urine Barbiturates Screen NEGATIVE NEGATIVE Ur Tricyclic Antidepressants Screen NEGATIVE NEGATIVE Urine Phencyclidine Screen NEGATIVE NEGATIVE Urine Amphetamines Screen NEGATIVE NEGATIVE Urine Methamphetamines Screen NEGATIVE NEGATIVE Urine Benzodiazepines Screen NEGATIVE NEGATIVE Urine Cocaine Screen NEGATIVE NEGATIVE Urine Cannabinoids Screen NEGATIVE NEGATIVE Test 09/19/20 05:08 09/19/20 11:21 Range/Units White Blood Count 18.7 H 4.3-11.0 10^3/uL Red Blood Count 3.60 L 4.30-5.52 10^6/uL Hemoglobin 8.4 L 13.3-17.7 g/dL Hematocrit 27 L 40-54 % Mean Corpuscular Volume 76 L 80-99 fL Mean Corpuscular Hemoglobin 23 L 25-34 pg Mean Corpuscular Hemoglobin Concent 31 L 32-36 g/dL Red Cell Distribution Width 14.8 H 10.0-14.5 % Platelet Count 477 H 130-400 10^3/uL Mean Platelet Volume 9.7 9.0-12.2 fL Immature Granulocyte % (Auto) 1 % Neutrophils (%) (Auto) 91 H 42-75 % Lymphocytes (%) (Auto) 7 L 12-44 % Monocytes (%) (Auto) 1 0-12 % Eosinophils (%) (Auto) 0 0-10 % Basophils (%) (Auto) 0 0-10 % Neutrophils # (Auto) 17.1 H 1.8-7.8 10^3/uL Lymphocytes # (Auto) 1.4 1.0-4.0 10^3/uL Monocytes # (Auto) 0.1 0.0-1.0 10^3/uL Eosinophils # (Auto) 0.0 0.0-0.3 10^3/uL Basophils # (Auto) 0.0 0.0-0.1 10^3/uL Immature Granulocyte # (Auto) 0.2 H 0.0-0.1 10^3/uL Sodium Level 132 L 135-145 MMOL/L Potassium Level 4.2 3.6-5.0 MMOL/L Chloride Level 98 98-107 MMOL/L Carbon Dioxide Level 19 L 21-32 MMOL/L Anion Gap 15 H 5-14 MMOL/L Blood Urea Nitrogen 35 H 7-18 MG/DL Creatinine 2.05 H 0.60-1.30 MG/DL Estimat Glomerular Filtration Rate 41 BUN/Creatinine Ratio 17 Glucose Level 154 H 70-105 MG/DL Calcium Level 10.1 8.5-10.1 MG/DL Corrected Calcium 10.4 H 8.5-10.1 MG/DL Total Bilirubin 0.4 0.1-1.0 MG/DL Aspartate Amino Transf (AST/SGOT) 23 5-34 U/L Alanine Aminotransferase (ALT/SGPT) 29 0-55 U/L Alkaline Phosphatase 171 H 40-136 U/L Total Protein 8.0 6.4-8.2 GM/DL Albumin 3.6 3.2-4.5 GM/DL Glucometer 175 H 70-110 MG/DL Radiology CXR and head CT with no acute findings Physical Exam-([facility]) Physical Exam Vital Signs VS - Last 72 Hours, by Label 09/18/20 09/18/20 09/18/20 09/18/20 18:43 20:00 20:13 20:28 Temp 36.6 36.3 Pulse 97 100 Resp 18 24 B/P (MAP) 154/85 150/80 (103) Pulse Ox 92 100 99 O2 Delivery Room Air Room Air Room Air 09/18/20 09/18/20 09/19/20 09/19/20 21:16 23:15 00:45 01:00 Temp 36.7 Pulse 97 91 92 Resp 18 B/P (MAP) 132/70 (90) Pulse Ox 92 O2 Delivery Room Air Room Air 09/19/20 09/19/20 09/19/20 04:00 06:23 07:20 Temp 36.7 36.9 Pulse 93 107 95 Resp 20 20 B/P (MAP) 135/74 (94) 138/76 (96) Pulse Ox 96 94 O2 Delivery Room Air Room Air Capillary Refill : Less Than 3 Seconds General Appearance: no apparent distress Respiratory: lungs clear, normal breath sounds Cardiovascular: regular rate, rhythm, no murmur Gastrointestinal: normal bowel sounds, non tender, soft Extremities: swelling, other (enlarged fingers/dactylitis on both hands with fixed flexion deformities at multiple DIP joints, tophi in fingertips, no erythema or heat in hand joints or knee joints) Neurologic/Psychiatric: alert, normal mood/affect Skin: normal color, warm/dry Short Stay Diagnosis Discharge Diagnosis-Short Stay Admission Diagnosis See problem list Final Discharge Diagnosis See problem list Conclusion Plan See problem list Was the Problem List Reviewed?: Yes Copy Copies To 1: EDGARDO BATES MD Assessment/Plan Assessment/Plan Admission Status: Observation (1) History of vaccination Status: Acute Assessment & Plan: COVID19 vaccination on 09/11. Not highly suspicious that the acute inflammatory arthritis flare is caused by this, but given proximity, will report. (2) Polyarthritis Status: Chronic (3) HTN (hypertension) Status: Chronic (4) Generalized weakness Status: Acute Assessment & Plan: Due to pain, already markedly improved am after admission. (5) Generalized pain Status: Acute Assessment & Plan: Markedly improved after Solumedrol dosing overnight. (6) Rheumatoid arthritis Status: Chronic Assessment & Plan: Follow up with second opinion referral outpatient. Unclear as to whether diagnosis is in question or accurate, however, given his markedly elevated ESR and CRP and no evidence of infection and multiple joint pains and swelling, treated with steroids and he has had significant improvement. Will taper prednisone on d/c. (7) Gout Status: Chronic Assessment & Plan: Continue home meds. Steroids as noted above for possible flare. Uric acid normal this admit. Qualifiers: (8) Renal insufficiency Status: Chronic (9) Inflammatory arthritis Status: Chronic YAMEL BECK MD Sep 19, 2020 11:26
--- NOTE | 2020-09-19 11:29 | Discharge Summary ---
Discharge [facility] Discharge Medications New, Converted or Re-Newed RX: Transmitted to Pharmacy New Medications: Prednisone (Prednisone) 10 Mg Tab 0 PO UD, #21 TAB 0 Refills Take 6 tabs (60mg) daily, decrease by 1 tab (10mg) daily. Continued Medications: Allopurinol (Allopurinol) 300 Mg Tablet 300 MG PO DAILY, TAB Amlodipine Besylate (Amlodipine Besylate) 5 Mg Tablet 5 MG PO DAILY, TAB Cholecalciferol (Vitamin D3) (Vitamin D3) 25 Mcg Tablet 25 MCG PO DAILY, TAB Ferrous Sulfate (Iron) 325 Mg Tablet 325 MG PO DAILY, TAB Glipizide (Glipizide) 5 Mg Tablet 5 MG PO DAILY, TAB Hydrocodone/Acetaminophen (Hydrocodone-Acetamin 5-325 mg) 1 Each Tablet 1 TAB PO TID PRN for PAIN-MODERATE (5-7), TAB Indomethacin (Indomethacin) 25 Mg Capsule 25 MG PO DAILY, CAP Lurasidone HCl (Latuda) 120 Mg Tablet 120 MG PO HS, TAB Multivit-Min/FA/Lycopen/Lutein (Centrum Silver Men Tablet) 1 Each Tablet 1 EACH PO DAILY, TAB Pantoprazole Sodium (Pantoprazole Sodium) 40 Mg Tablet.dr 40 MG PO DAILY, TAB Potassium Chloride (Potassium Chloride) 10 Meq Capsule.er 10 MEQ PO BID, CAP LAST FILLED 03-08-2020 #180/90 DAY SUPPLY Pravastatin Sodium (Pravastatin Sodium) 40 Mg Tablet 40 MG PO DAILY, TAB Sertraline HCl (Sertraline HCl) 100 Mg Tablet 100 MG PO HS, TAB Trazodone HCl (Trazodone HCl) 100 Mg Tablet 100 MG PO HS, TAB Patient Instructions Goal/Follow Up Appt: Follow up with Dr. Bates on 09/22 at 1:20 pm. Return to The [facility] For: Fever, worsening pain or swelling Activity & Diet Discharge Diet: ADA Diet Activity as Tolerated: Yes Copy Copies To 1: EDGARDO BATES MD,EDE Mathew MD Sep 19, 2020 11:29
--- NOTE | 2020-09-19 11:53 | Occ Therapy Progress Note ---
Therapy Progress Note Pt seated in recliner, states he is planning on discharging today. Pt reports he has no concerns with completing ADLs upon discharge, his assists him with footwear and LE clothing, and he feels as though he is at PLOF. Pt has no concerns with UE strength/ROM. He reports IND with feeding. No skilled OT services indicates at this time, as pt is at PLOF and has no concerns with ADLs. 1, visit [id number] ALEXANDER BORJAS OT Sep 19, 2020 11:53
[2020-09-19 12:00] VITALS: BP 134/81
== END 2020-09-19 13:55 | disposition home or self-care (01) ==
LOC: EDUNIT# 18:40 → ER 18:41 → 4TH 19:45 → INTOOBSV 19:45
PROVIDERS: ADMIT Family Medicine; ATTEND Family Medicine
DX: R53.1 Weakness (principal); M1A.9XX1 Chronic gout, unspecified, with tophus (tophi); M06.9 Rheumatoid arthritis, unspecified; K21.00 Gastro-esophageal reflux disease with esophagitis, without bleeding; E11.22 Type 2 diabetes mellitus with diabetic chronic kidney disease; I12.9 Hypertensive chronic kidney disease with stage 1 through stage 4 chronic kidney disease, or unspecified chronic kidney disease; N18.9 Chronic kidney disease, unspecified; R00.0 Tachycardia, unspecified; F20.9 Schizophrenia, unspecified; K28.9 Gastrojejunal ulcer, unspecified as acute or chronic, without hemorrhage or perforation; E66.9 Obesity, unspecified; D72.829 Elevated white blood cell count, unspecified; E78.00 Pure hypercholesterolemia, unspecified; E78.5 Hyperlipidemia, unspecified; F41.9 Anxiety disorder, unspecified; F32.9 Major depressive disorder, single episode, unspecified; G47.30 Sleep apnea, unspecified; D63.1 Anemia in chronic kidney disease; Z90.49 Acquired absence of other specified parts of digestive tract; Z88.0 Allergy status to penicillin; Z68.38 Body mass index [BMI] 38.0-38.9, adult; Z79.2 Long term (current) use of antibiotics; Z79.84 Long term (current) use of oral hypoglycemic drugs; Z79.891 Long term (current) use of opiate analgesic; Z79.1 Long term (current) use of non-steroidal anti-inflammatories (NSAID)
CPT/HCPCS: 70450; 71045; 80053 ×2; 80306; 81000; 82140; 82550; 82553; 82962 ×2; 83735; 83874; 84443; 84550; 85007; 85025; 85027; 85610; 85652; 85730; 86141; 93005; 93041; 94760; 97162; 99284; G0378; 36415

== ENCOUNTER → 2020-09-26 | Outpatient (CLI) | payer MEDICARE ==
[~2020-09-26] MED LIST changes: +ACHD5005 PO; +AMLO-250 PO; +CHOL100045 PO; +FERR-84 PO; +GLIP5TAB13 PO; +INDO25CA99 PO; +LURA120T PO; +MULT-1061 PO; +PRAV40TA2 PO; +PRD10T PO; +SERT-414 PO; +TRAZ-227 PO
--- NOTE | 2020-09-26 16:11 | Diagnostic Imaging Report ---
INDICATION: Adult ankle fracture, long-term steroid use. COMPARISON: None available. FINDINGS: AP Spine L1-L4: [BMD (g/cm2): 1.535] [T-Score: 2.5] [Z-Score: 1.2] [BMD Previous: NA] [BMD % Change: NA] LT Hip Neck: [BMD (g/cm2): 1.092] [T-Score: 1.7] [Z-Score: 0.9] LT Hip Total: [BMD (g/cm2):1.396] [T-Score:2.0] [Z-Score: 1.0] [BMD Previous: NA] [BMD % Change: NA] RT Hip Neck: [BMD (g/cm2):1.258] [T-Score:1.4] [Z-Score:0.6] RT Hip Total: [BMD (g/cm2):1.402] [T-score:2.1] [Z-Score:1.1] [BMD Previous:NA] [BMD % Change:NA] *Indicates significant change from prior examination based on 95% confidence level. World Health Organization criteria for BMD interpretation classify patients as Normal (T-score at or above -1.0), Osteopenic (T-score between -1.0 and -2.5) or Osteoporotic (T-score at or below -2.5). LIMITATIONS AND MODIFICATION: None. IMPRESSION: 1. Normal bone mineral density. 2. Baseline examination. 3. See below National Osteoporosis Foundation guidelines on when to potentially initiate pharmacologic therapy. Based on the National Osteoporosis Foundation Guidelines, pharmacologic treatment should be initiated in any of the following, unless clinical conditions suggest otherwise: * Any patient with prior fragility fracture of the hip or vertebrae. A spine fracture indicates 5X risk for subsequent spine fracture and 2X risk for subsequent hip fracture. * Osteoporosis (T-score <-2.5). * Postmenopausal women and men age 50 and older with low bone mass/osteopenia (T-score between -1.0 and -2.5) by DXA and 10-year major osteoporotic fracture greater than 20% or a 10-year probability of hip fracture greater than 3%. These fracture risks are supplied above in the FRAX score, if applicable. * Clinician judgement and/or patient preferences may indicate treatment for people with 10-year fracture probabilities above or below these levels. Dictated by: Dictated on workstation # [id number]
== END ==
LOC: RAD 12:19
PROVIDERS: ATTEND Internal Medicine
DX: Z13.820 Encounter for screening for osteoporosis (principal); S82.899A Other fracture of unspecified lower leg, initial encounter for closed fracture; Z79.52 Long term (current) use of systemic steroids
CPT/HCPCS: 77080

== ENCOUNTER 2020-11-13 15:14 | Outpatient (RCR) | payer MEDICARE ==
[~2020-11-13 15:14] MED LIST changes: +ARIP15TA20 PO; -ARIP15TA9 PO; -OMEP40CA27 PO; +OMEP40CA6 PO
== END 2020-12-26 | disposition home or self-care (01) ==
PROVIDERS: ATTEND Orthopaedic Surgery
DX: M19.012 Primary osteoarthritis, left shoulder (principal)

== ENCOUNTER → 2021-09-03 | Outpatient (CLI) | payer MEDICARE ==
[~2021-09-03] MED LIST changes: +CHOL10004 PO; -CHOL100045 PO; +CYCL10TA25 PO; -CYCL10TA9 PO; -MAGN400T8 PO; +MGX400T PO; +POTA-160 PO; -POTA10TA6 PO
[2021-09-03 09:58] LABS: HEMATOCRIT 36 % (40-54); MEAN CORPUSCULAR HEMOGLOBIN 24 pg (25-34); MEAN CORPUSCULAR HGB CONC 31 g/dL (32-36); MEAN CORPUSCULAR VOLUME 78 fL (80-99); MEAN PLATELET VOLUME 9.1 fL (9.0-12.2); PLATELET COUNT 323 10^3/uL (130-400); WHITE BLOOD COUNT 8.7 10^3/uL (4.3-11.0)
[2021-09-03 10:13] LABS: ALBUMIN 4.3 GM/DL (3.2-4.5); CALCIUM 10.1 MG/DL (8.5-10.1); CREATININE SERUM 1.87 MG/DL (0.60-1.30); PHOSPHORUS 3.4 MG/DL (2.3-4.7); POTASSIUM 3.5 MMOL/L (3.6-5.0); URIC ACID 5.6 MG/DL (2.6-7.2)
== END ==
LOC: LAB 09:11
PROVIDERS: ATTEND Internal Medicine Nephrology
DX: N18.32 Chronic kidney disease, stage 3b (principal); I95.89 Other hypotension; Z79.1 Long term (current) use of non-steroidal anti-inflammatories (NSAID)
CPT/HCPCS: 36415; 80069; 82306; 82570; 83970; 84156; 84550; 85027

== ENCOUNTER 2022-03-27 06:09 | Outpatient (CLI) | payer MEDICARE ==
[~2022-03-27] VITALS: Ht 177.8 cm; Wt 112.0 kg
== END 2022-03-27 17:05 | disposition home or self-care (01) ==
LOC: PREOP 06:09
PROVIDERS: ATTEND Surgery
DX: Z01.818 Encounter for other preprocedural examination (principal)

== ENCOUNTER 2022-04-09 10:53 | Day surgery (SDC) | payer MEDICARE ==
[~2022-04-09] VITALS: Ht 177.8 cm; Wt 112.0 kg
[2022-04-09] MEDS ORDERED: LACTATED RINGERS 1,000 ML IV STA (10:54)
[2022-04-09] MEDS ORDERED: HURRICAINE EXT TUBE (BENZOCAINE) XX PRN (11:00)
[2022-04-09 11:24] VITALS: BP 132/86
--- NOTE | 2022-04-09 11:44 | Progress Note-Pre Operative ---
Pre-Operative Progress Note Date H&P Reviewed: Apr 09, 2022 Time H&P Reviewed: 11:43 History & Physical: H&P Reviewed Pre-Operative Diagnosis: Positive occult blood, Epigastric pain, GERD ORTIZ MARR DO Apr 09, 2022 11:44
[2022-04-09] MEDS ORDERED: PROPOFOL INJECTION 50 ML IV ONE ×2 (12:46→13:28)
[2022-04-09] MEDS ORDERED: LACTATED RINGERS 1,000 ML IV ONE (13:13)
--- NOTE | 2022-04-09 13:43 | Progress Note-Post Operative ---
Post-Operative Progess Note Surgeon (s)/Specialist Field Engineer (s) Surgeon ORTIZ MARR DO Specialist Field Engineer: NA Pre-Operative Diagnosis Positive occult blood, Epigastric pain, GERD Post-Operative Diagnosis Colon polyp Procedure & Operative Findings Date of Procedure 04/09/22 Procedure Performed/Findings EGD with biopsies Colonoscopy with ascending colon polypectomy x1 (hot snare) Anesthesia Type per water pump installer Estimated Blood Loss Estimated blood loss (mL): None Specimens/Packing Specimens Removed hot snare ascending colon polypectomy x1 ORTIZ MARR DO Apr 09, 2022 13:43
--- NOTE | 2022-04-09 13:44 | Anesthesia-General Post-Op ---
MAC Patient Condition Mental Status/LOC: Same as Preop Cardiovascular: Satisfactory Nausea/Vomiting: Absent Respiratory: Satisfactory Pain: Controlled Complications: Absent Post Op Complications Complications None Follow Up Care/Instructions Patient Instructions None needed. Anesthesiology Discharge Order Discharge Order Patient is doing well, no complaints, stable vital signs, no apparent adverse anesthesia problems. No complications reported per nursing. FLACA CONTI CRNA Apr 09, 2022 13:44
--- NOTE | 2022-04-09 13:44 | Discharge Inst-Simple/Standard ---
Discharge Inst-Standard Reconcile Patient Problems Problems Reviewed?: Yes Patient Instructions/Follow Up Plan of Care/Instructions/FU: f/u in two weeks with Dr. Suarez Activity as Tolerated: Yes Discharge Diet: Regular Diet ORTIZ SUAREZ DO Apr 09, 2022 13:44
[2022-04-09 13:45] VITALS: BP 112/60
[2022-04-09] MEDS ORDERED: PANT40TA2 PO (13:45)
[2022-04-09 13:50] VITALS: BP 112/60
[2022-04-09 14:16] VITALS: BP 112/60
--- NOTE | 2022-04-09 22:31 | OPERATIVE REPORT ---
DATE OF SERVICE: 04/09/2022 PREOPERATIVE DIAGNOSES: Occult positive stools, epigastric abdominal pain. POSTOPERATIVE DIAGNOSES: Possible slight duodenitis, otherwise normal EGD, colon polyps. PROCEDURES: EGD with biopsies, colonoscopy with snare polypectomy. SURGEON: Ortiz Suarez DO ANESTHESIA: Per SUPERVISOR COMPOSING ROOM. ESTIMATED BLOOD LOSS: None. COMPLICATIONS: None. INDICATIONS: The patient is a 56-year-old male with epigastric abdominal pain, occult positive stools. He understands risks and benefits of procedure and wishes to proceed. Consent was signed in the chart. DESCRIPTION OF PROCEDURE: The patient was taken to the endoscopy suite, placed in left lateral recumbent position. A timeout was performed. Scope was inserted in mouth, down the esophagus, stomach and into the duodenum without difficulty. There were no polyps, masses or ulcerations within the second portion of duodenum. In the first portion of duodenum had some slight erythematous changes, possibly relating to duodenitis. Scope was then slowly retracted back into the stomach where it was further insufflated. No polyps, masses or ulcerations. Biopsy of the antrum was obtained. Scope was retroflexed noting no other pathology. Scope was returned to its normal position, slowly withdrawn to distal esophagus. Biopsy of the GE junction was obtained. No polyps, masses or ulcerations. Scope was slowly retracted back until completely removed. The patient tolerated the procedure well without any complications. Digital rectal exam was performed. No palpable polyps, masses or ulcerations. Scope was inserted in the rectum and advanced all the way to cecum with minimal difficulty. Prep was adequate. Scope was slowly retracted back. No polyps, masses or ulcerations within the cecum. In the ascending colon, larger polyp was present, which snare polypectomy was performed. This was obtained for specimen. Scope was then continuously retracted back. No polyps, masses or ulcerations within the remainder of the ascending, transverse, descending and sigmoid colon. Once in the rectum, scope was retroflexed noting no other pathology. Scope was returned to its normal position, slowly withdrawn until completely removed. The patient tolerated the procedure well without any complications, taken to recovery room in stable condition. RECOMMENDATIONS: The patient will need repeat colonoscopy in 3 to 5 years. Any issues before that be seen at that time. We will also put the patient on Protonix 40 mg daily. Await biopsy results. The patient will follow up in 2 weeks. Job ID: [id number] DocumentID: [id number] Dictated Date: 04/09/2022 13:47:19 Unstacker Date: 04/09/2022 22:30:11 Dictated By: ORTIZ SUAREZ DO
== END 2022-04-09 14:16 | disposition home or self-care (01) ==
LOC: ENDO 10:53
PROVIDERS: ATTEND Surgery
DX: D12.2 Benign neoplasm of ascending colon (principal); E11.9 Type 2 diabetes mellitus without complications; Z79.84 Long term (current) use of oral hypoglycemic drugs; E66.01 Morbid (severe) obesity due to excess calories; Z68.35 Body mass index [BMI] 35.0-35.9, adult; Z87.891 Personal history of nicotine dependence; K21.9 Gastro-esophageal reflux disease without esophagitis; G47.33 Obstructive sleep apnea (adult) (pediatric); Z79.899 Other long term (current) drug therapy
CPT/HCPCS: 82947